=== PATIENT | male | born 1950 | race Caucasian/White ===

== ENCOUNTER → 2020-08-05 13:01 | Outpatient (BNVA) | payer MEDICARE, SELFPAY | PROVIDERS: PCP Internal Medicine; Referring Provider Internal Medicine; Visit Provider Family Medicine Adult Medicine | DX: M47.816 Spondylosis without myelopathy or radiculopathy, lumbar region (principal); M17.0 Bilateral primary osteoarthritis of knee; K50.90 Crohn's disease, unspecified, without complications; Z79.891 Long term (current) use of opiate analgesic | CPT/HCPCS: 99214 ==

== ENCOUNTER 2020-08-08 09:38 | Day surgery (SDC) | payer MEDICARE, SELFPAY ==
--- NOTE | 2020-08-07 11:15 | HO.ANESPROP2 ---
Documented by User: Judy Odell 08/07/20 11:16 HPI - Anesthesia Eval Consult details Narrative: 70yo M for Colonoscopy [facility] Past Medical History Medical History (Updated 08/08/20 @ 10:35 by Nick Smith RN) Arthritis Asthma Back pain Crohn disease Depression HTN (hypertension) Lumbar spondylosis Sleep apnea Tendon tear Surgical History Surgical History H/O colonoscopy Social History Social History Smoking Status: Former smoker Smoking Quit Date: 25YEARS AGO Use of substances other than those prescribed or required for medical reasons: No Advance Directives: No Advance Directives Information Provided: Yes Recently lost weight without trying: No Meds Allergies Allergy/AdvReac Type Severity Reaction Status Date / Time hydrocortisone Allergy Severe SWELLING Verified 08/05/20 13:14 [HYDROCORTISONE] NSAIDS (Non-Steroidal Allergy Severe BLEEDING Verified 08/05/20 13:14 Anti-Inflamma [NSAIDS (NON-STEROIDAL ANTI-INFLAMMA] aspirin Allergy Unknown bleeding Verified 08/05/20 13:14 Home Medications Medication Instructions Recorded Confirmed Type chlorthalidone 25 mg tablet 25 mg PO DAILY 07/30/20 08/05/20 History tizanidine 4 mg capsule 4 mg PO Q8H PRN 07/30/20 08/05/20 History venlafaxine 75 mg tablet 75 mg PO BID 07/30/20 08/05/20 History Exam Exam Date and Time: August 07, 2020 1115 Pertinent Lab Results Pertinent Lab Results: Laboratory Tests 05/06/20 05/06/20 17:34 17:56 WBC 5.9 Hgb 14.6 Hct 44.6 Plt Count 279 Sodium 139 Potassium 3.6 Chloride 98 BUN 20 H Creatinine 0.98 Assessment and Plan Assessment Anesthesia Assessment: Chart Reviewed Documented by User: Marianna Pitts 08/08/20 10:59 [facility] Past Medical History Medical History (Updated 08/08/20 @ 10:35 by Nick Smith RN) Arthritis Asthma Back pain Crohn disease Depression HTN (hypertension) Lumbar spondylosis Sleep apnea Tendon tear Surgical History Surgical History H/O colonoscopy Social History Social History Smoking Status: Former smoker Smoking Quit Date: 25YEARS AGO Use of substances other than those prescribed or required for medical reasons: No Advance Directives: No Advance Directives Information Provided: Yes Recently lost weight without trying: No Meds Allergies Allergy/AdvReac Type Severity Reaction Status Date / Time hydrocortisone Allergy Severe SWELLING Verified 08/05/20 13:14 [HYDROCORTISONE] NSAIDS (Non-Steroidal Allergy Severe BLEEDING Verified 08/05/20 13:14 Anti-Inflamma [NSAIDS (NON-STEROIDAL ANTI-INFLAMMA] aspirin Allergy Unknown bleeding Verified 08/05/20 13:14 Home Medications Medication Instructions Recorded Confirmed Type chlorthalidone 25 mg tablet 25 mg PO DAILY 07/30/20 08/05/20 History tizanidine 4 mg capsule 4 mg PO Q8H PRN 07/30/20 08/05/20 History venlafaxine 75 mg tablet 75 mg PO BID 07/30/20 08/05/20 History Exam Height,Weight and Vital Signs: Vital Signs Temp Pulse Resp BP Pulse Ox 08/08/20 10:51 161/84 H 08/08/20 10:15 98.6 F 63 18 96 Airway Mallampati Class: III TM Dist: >3cm Neck ROM: Full Heart: RRR Lungs: CTAB Assessment and Plan Assessment Anesthesia Assessment: Anesthesia Plan Discussed and Chart Reviewed Final Anesthetic Review NPO: Yes ASA Class: III Final Preanesthetic Review: No Changes in Pt Med Stat, Meds/Allgs Chart Reviewed, Consent Obtained/Reviewed and Anes Risks/Benef Reviewed Patient Risk: Intermediate Procedure Risk: Low Anesthetic Plan Anesthetic Plan: MAC: Disposition: Standard PACU
[2020-08-08 10:15] VITALS: PULSE 63; RESP 18; TEMP 37; O2SAT 96
[2020-08-08 10:17] VITALS: BMI 33.4
[2020-08-08] MEDS: Lactated Ringers 1,000 ML 100 ML IVCONT (10:27)
[2020-08-08 10:51] VITALS: BP 161/84
--- NOTE | 2020-08-08 11:14 | PM.OP ---
Brief Operative Note Date of procedure: 08/08/20 Pre-op diagnosis: crohns Post-op diagnosis: other (colon polyp) Procedure: colonosocpy Surgeon: Rahat Fuentes Anesthesia: MAC Estimated blood loss (mL): 5 Pathology: other (colon bx's, colon polyp) Condition: stable Disposition: PACU
--- NOTE | 2020-08-08 11:16 | MHC.SHP ---
Pre-Procedural Eval Section A The patient is an INPATIENT: No Changes since office visit: No Cold of Flu in the past 2 weeks, No New Medical Problems, No Changes in Medication and No Patient answered all questions The History & Physical has been completed within 30 days and I have reviewed it.: Yes Section B Chief Complaint: CROHN'S Allergies: Allergies Allergy/AdvReac Type Severity Reaction Status Date / Time hydrocortisone Allergy Severe SWELLING Verified 08/05/20 13:14 [HYDROCORTISONE] NSAIDS (Non-Steroidal Allergy Severe BLEEDING Verified 08/05/20 13:14 Anti-Inflamma [NSAIDS (NON-STEROIDAL ANTI-INFLAMMA] aspirin Allergy Unknown bleeding Verified 08/05/20 13:14 Plan Patient has been examined and remains a candidate for the planned procedure
[2020-08-08 11:17] VITALS: BP 113/61; PULSE 57; RESP 12; TEMP 36.6; O2SAT 95
[2020-08-08 11:32] VITALS: BP 126/60; PULSE 60; RESP 16; TEMP 36.6
--- NOTE | 2020-08-08 11:44 | HO.POSTANES ---
Post Anesthesia Evaluation Post Anesthesia Evaluation Vital Signs: Vital Signs Temp Pulse Resp BP Pulse Ox 08/08/20 11:32 98 F 60 16 126/60 08/08/20 11:17 97.8 F 57 12 113/61 95 08/08/20 10:51 161/84 H 08/08/20 10:15 98.6 F 63 18 96 Anesthesia: Monitored Mental Status: Awake Pain Control: Satisfactory Nausea/Vomiting: None Anesthesia-Related Issues: No Anes. Related Issues
--- NOTE | 2020-08-08 12:05 | OP_ITS ---
SURGEON: Rahat Fuentes MD INDICATIONS: Crohn disease. PREOPERATIVE DIAGNOSIS: POSTOPERATIVE DIAGNOSIS: PROCEDURE PERFORMED: Colonoscopy to the terminal ileum with biopsy. ESTIMATED BLOOD LOSS: COMPLICATIONS: ANESTHESIA: ASSISTANTS: SPECIMENS: MEDICATIONS: Monitored anesthesia care. DESCRIPTION OF PROCEDURE: History and physical performed. The risks and benefits of the procedure were explained to the patient. Informed consent was obtained. The patient was placed in the left lateral decubitus position. A digital rectal exam was performed and was found to be normal. The Olympus pediatric video colonoscope was introduced into the rectum and advanced to the cecum without difficulty. The cecum was identified by transillumination, palpation, and identification of ileocecal valve. Examination was performed and the scope was removed. He tolerated the procedure well and was taken to recovery area in stable condition. FINDINGS: The terminal ileum was normal. The visualized colonic mucosa was normal. The quality of the prep was good. Biopsies were obtained from the terminal ileum and from throughout the colon. A 6 mm polyp was removed with a snare at 50 cm. No other polyps were identified. Retroflexed examination was normal. IMPRESSION: Colon polyp. RECOMMENDATION: Follow up the biopsy results. MD FARHEEN Garcia/PEDRO / [id number]
== END 2020-08-08 11:53 | disposition home or self-care (01) ==
PROVIDERS: PCP Internal Medicine; Visit Provider Internal Medicine Gastroenterology
PROC: 0DJD8ZZ Inspection of Lower Intestinal Tract, Via Natural or Artificial Opening Endoscopic (ICD-10-PCS; CPT 45378; principal; 2020-08-08 11:00)
DX: K50.00 Crohn's disease of small intestine without complications (principal); Z86.010 Personal history of colon polyps; Z80.0 Family history of malignant neoplasm of digestive organs; D12.5 Benign neoplasm of sigmoid colon; K21.9 Gastro-esophageal reflux disease without esophagitis; J44.9 Chronic obstructive pulmonary disease, unspecified; I10 Essential (primary) hypertension; J45.909 Unspecified asthma, uncomplicated; Z79.899 Other long term (current) drug therapy; Z88.8 Allergy status to other drugs, medicaments and biological substances; Z87.891 Personal history of nicotine dependence
CPT/HCPCS: 45385; 45380; 88305

== ENCOUNTER → 2020-09-09 15:27 | Outpatient (BNVA) | payer MEDICARE, SELFPAY | PROVIDERS: PCP Internal Medicine; Referring Provider Internal Medicine; Visit Provider Family Medicine Adult Medicine | DX: M47.816 Spondylosis without myelopathy or radiculopathy, lumbar region (principal); Z79.891 Long term (current) use of opiate analgesic | CPT/HCPCS: 99212 ==

== ENCOUNTER → 2020-10-07 14:48 | Outpatient (BNVA) | payer MEDICARE, SELFPAY | PROVIDERS: PCP Internal Medicine; Visit Provider Family Medicine Adult Medicine | DX: M54.16 Radiculopathy, lumbar region (principal) | CPT/HCPCS: 99212 ==

== ENCOUNTER → 2020-10-14 13:19 | Outpatient (BNVA) | payer MEDICARE, SELFPAY | PROVIDERS: PCP Internal Medicine; Visit Provider Internal Medicine | DX: J45.909 Unspecified asthma, uncomplicated (principal); J44.9 Chronic obstructive pulmonary disease, unspecified; G47.33 Obstructive sleep apnea (adult) (pediatric); Z87.891 Personal history of nicotine dependence; Z99.89 Dependence on other enabling machines and devices; Z79.52 Long term (current) use of systemic steroids; Z79.899 Other long term (current) drug therapy | CPT/HCPCS: 99212 ==

== ENCOUNTER → 2020-11-06 15:28 | Outpatient (BNVA) | payer MEDICARE, SELFPAY | PROVIDERS: PCP Internal Medicine; Referring Provider Internal Medicine; Visit Provider Family Medicine Adult Medicine | DX: M47.816 Spondylosis without myelopathy or radiculopathy, lumbar region (principal); M54.16 Radiculopathy, lumbar region | CPT/HCPCS: 99212 ==

== ENCOUNTER → 2020-12-04 13:53 | Outpatient (BNVA) | payer MEDICARE, SELFPAY | PROVIDERS: PCP Internal Medicine; Visit Provider Family Medicine Adult Medicine | DX: M47.816 Spondylosis without myelopathy or radiculopathy, lumbar region (principal); M54.16 Radiculopathy, lumbar region; Z79.891 Long term (current) use of opiate analgesic | CPT/HCPCS: 99211 ==

== ENCOUNTER → 2020-12-31 15:16 | Outpatient (BNVA) | payer MEDICARE, SELFPAY | PROVIDERS: PCP Internal Medicine; Visit Provider Nurse Practitioner Family | DX: M47.816 Spondylosis without myelopathy or radiculopathy, lumbar region (principal); M54.16 Radiculopathy, lumbar region | CPT/HCPCS: 99212 ==

== ENCOUNTER → 2021-01-29 15:32 | Outpatient (BNVA) | payer MEDICARE, SELFPAY | PROVIDERS: PCP Internal Medicine; Visit Provider Family Medicine Adult Medicine | DX: M47.816 Spondylosis without myelopathy or radiculopathy, lumbar region (principal); M54.16 Radiculopathy, lumbar region | CPT/HCPCS: 99212 ==

== ENCOUNTER → 2021-02-05 12:34 | Outpatient (BNVA) | payer MEDICARE, SELFPAY | PROVIDERS: PCP Internal Medicine; Visit Provider Family Medicine Adult Medicine | DX: M47.816 Spondylosis without myelopathy or radiculopathy, lumbar region (principal); M54.16 Radiculopathy, lumbar region; M17.0 Bilateral primary osteoarthritis of knee | CPT/HCPCS: 99212; Q3014 ==

== ENCOUNTER → 2021-03-05 14:25 | Outpatient (BNVA) | payer MEDICARE, SELFPAY | PROVIDERS: PCP Internal Medicine; Visit Provider Family Medicine Adult Medicine | DX: M47.816 Spondylosis without myelopathy or radiculopathy, lumbar region (principal); M54.16 Radiculopathy, lumbar region; M17.0 Bilateral primary osteoarthritis of knee | CPT/HCPCS: 99212 ==

== ENCOUNTER → 2021-03-12 14:35 | Outpatient (BNVA) | payer MEDICARE, SELFPAY | PROVIDERS: PCP Internal Medicine; Visit Provider Family Medicine Adult Medicine | DX: M54.16 Radiculopathy, lumbar region (principal); M47.816 Spondylosis without myelopathy or radiculopathy, lumbar region; M17.0 Bilateral primary osteoarthritis of knee | CPT/HCPCS: Q3014 ==

== ENCOUNTER 2021-03-23 11:46 | Outpatient (REF) | payer MEDICARE, SELFPAY ==
--- NOTE | ~2021-03-23 | XR_ITS ---
EXAMINATION: BILATERAL KNEE X-RAY CLINICAL INFORMATION: Pain COMPARISON: Previous exam most recent February 2019 TECHNIQUE: Standing AP, lateral and sunrise view of both knees FINDINGS: Right: Bone alignment is normal. No fracture or dislocation is seen. There is mild medial femoral tibial joint space narrowing. There is no joint effusion. Left: Bone alignment is normal. No fracture or dislocation is seen. There is a. 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 The joint spaces are normal. There is a small joint effusion. XR/XR knee RT 2V IMPRESSION: Right knee: Mild medial femoral tibial joint space narrowing. Left knee: Small joint effusion. 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
--- NOTE | ~2021-03-23 | XR_ITS ---
EXAMINATION: BILATERAL KNEE X-RAY CLINICAL INFORMATION: Pain COMPARISON: Previous exam most recent February 2019 TECHNIQUE: Standing AP, lateral and sunrise view of both knees FINDINGS: Right: Bone alignment is normal. No fracture or dislocation is seen. There is mild medial femoral tibial joint space narrowing. There is no joint effusion. Left: Bone alignment is normal. No fracture or dislocation is seen. There is a. 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 The joint spaces are normal. There is a small joint effusion. XR/XR knee standing BI IMPRESSION: Right knee: Mild medial femoral tibial joint space narrowing. Left knee: Small joint effusion. 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
--- NOTE | ~2021-03-23 | XR_ITS ---
EXAMINATION: BILATERAL KNEE X-RAY CLINICAL INFORMATION: Pain COMPARISON: Previous exam most recent February 2019 TECHNIQUE: Standing AP, lateral and sunrise view of both knees FINDINGS: Right: Bone alignment is normal. No fracture or dislocation is seen. There is mild medial femoral tibial joint space narrowing. There is no joint effusion. Left: Bone alignment is normal. No fracture or dislocation is seen. There is a. 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 The joint spaces are normal. There is a small joint effusion. XR/XR knee LT 2V IMPRESSION: Right knee: Mild medial femoral tibial joint space narrowing. Left knee: Small joint effusion. 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
== END 2021-03-23 11:47 | disposition home or self-care (01) ==
LOC: HO.HOSX 11:46
PROVIDERS: Visit Provider Orthopaedic Surgery
DX: M17.0 Bilateral primary osteoarthritis of knee (principal)
CPT/HCPCS: 20610; 73560; 73565; 99202; J1100

== ENCOUNTER → 2021-04-10 13:02 | Outpatient (BNVA) | payer MEDICARE, SELFPAY | PROVIDERS: PCP Internal Medicine; Visit Provider Nurse Practitioner Family | DX: M47.816 Spondylosis without myelopathy or radiculopathy, lumbar region (principal); M53.3 Sacrococcygeal disorders, not elsewhere classified; Z79.899 Other long term (current) drug therapy | CPT/HCPCS: 99212 ==

== ENCOUNTER → 2021-05-07 13:20 | Outpatient (BNVA) | payer MEDICARE, SELFPAY | PROVIDERS: PCP Internal Medicine; Visit Provider Family Medicine Adult Medicine | DX: M54.16 Radiculopathy, lumbar region (principal); M47.816 Spondylosis without myelopathy or radiculopathy, lumbar region; M17.0 Bilateral primary osteoarthritis of knee; M79.672 Pain in left foot; G47.33 Obstructive sleep apnea (adult) (pediatric); Z99.89 Dependence on other enabling machines and devices; Z88.8 Allergy status to other drugs, medicaments and biological substances; Z79.899 Other long term (current) drug therapy | CPT/HCPCS: 99212 ==

== ENCOUNTER 2021-05-08 04:27 | Emergency (ER) | payer MEDICARE, SELFPAY ==
[2021-05-08] VITALS (12 sets, daily range): BP systolic 95–129; BP diastolic 51–75; PULSE 65–90; RESP 10–23; TEMP 36.6–36.9; O2SAT 91–96; BMI 34.2
--- NOTE | ~2021-05-08 | CT_ITS ---
EXAMINATION: CT HEAD WITHOUT CONTRAST CLINICAL INFORMATION: Dizziness. COMPARISON: 12/24/2018 TECHNIQUE: Contiguous axial imaging was performed from the skull base to vertex without intravenous contrast. This CT examination was performed using dose optimization techniques as appropriate, variously including the following: * Automated exposure control * Adjustment of mA and/or kV according to patient size (this includes techniques or standardized protocols for targeted exams where dose is matched to indication/reason for exam; i.e. extremities or head) Use of iterative reconstruction technique DLP: 913 mGy-cm. FINDINGS: There is no evidence of acute intracranial hemorrhage or territorial infarction. No abnormal mass effect or midline shift is seen. Hagan to white matter differentiation is well preserved. No extra-axial fluid collections are identified. No hydrocephalus. Proportional prominence of the ventricles and sulcal spaces is consistent with mild volume loss. Patchy periventricular and deep white matter hypoattenuation is consistent with mild small vessel ischemic changes. The osseous structures and soft tissues are normal. Mild opacification of the bilateral ethmoid air cells. The mastoid air cells and visualized portions of the paranasal sinuses are otherwise well aerated. CT/CT head/brain wo con IMPRESSION: No acute intracranial pathology. Mild volume loss and small vessel ischemic change.
--- NOTE | 2021-05-08 04:33 | ECG_ITS ---
Test Reason : DIZZINESS Blood Pressure : / mmHG Vent. Rate : 084 BPM Atrial Rate : 084 BPM P-R Int : 164 ms QRS Dur : 094 ms QT Int : 410 ms P-R-T Axes : 029 -04 031 degrees QTc Int : 484 ms Normal sinus rhythm Cannot rule out Inferior infarct (cited on or before 25-NOV-2019) Abnormal ECG When compared with ECG of 06-MAY-2020 17:16, No significant change was found Referred By: Myra De La Cruz Electronically Signed By:CONCHITA HICKS
--- NOTE | 2021-05-08 04:34 | ED.NAVMDI ---
HPI - Nausea/Vomiting/Diarrhea General Chief complaint: General Medical Stated complaint: sob/nausea Time Seen by Provider: 05/08/21 04:32 Source: patient and EMS Mode of arrival: EMS Limitations: no limitations History of Present Illness HPI Narrative: 70 yo male with hx of VIDA< COPD, chronic pain syndrome on morphine took his usual dose today then couldn't sleep so he attempted to take one of his 's herbal sleeping supplements that contains chamomile, vallerian root, melatonin, coconut oil, he took two instead of one and the side effects include nausea and dizziness at higher doses patient developed these soon after ingestion. At this time he has never taken this suppelment before, his actually stopped taking it due to these side effects. MD elicited complaint: nausea and other (dizziness) Onset (ago): hour(s) Associated nausea: Yes Associated abdominal pain: No Location of pain: none Severity: mild Exacerbating factors: none Relieving factors: none Context: other (started after a sleep supplement) Associated symptoms: fever/chills, malaise, nausea/vomiting and weakness Related Data Home Medications Medication Instructions Recorded Confirmed azathioprine 50 mg tablet 50 mg PO DAILY 08/26/20 05/07/21 fluticasone propionate 110 1 puff INHALATION BID 08/26/20 05/07/21 mcg/actuation HFA aerosol inhaler Previous Rx's Medication Instructions Recorded pravastatin 20 mg tablet 20 mg PO DAILY #90 tab 11/25/20 salmeterol 50 mcg/dose blister 1 inh INHALATION BID 30 Days #60 ea 11/25/20 powder for inhalation tamsulosin 0.4 mg capsule 0.4 mg PO BEDTIME 90 Days #90 cap 11/25/20 tizanidine 4 mg capsule 4 mg PO BEDTIME PRN 30 Days #30 cap 11/25/20 metoprolol succinate 50 mg 50 mg PO DAILY #90 tab 11/30/20 tablet,extended release 24 hr pantoprazole 20 mg tablet,delayed 20 mg PO DAILY #90 tab 11/30/20 release chlorthalidone 25 mg tablet 25 mg PO QAM #90 tab 01/30/21 venlafaxine 75 mg tablet 75 mg PO .COMPLEX #270 tab 03/05/21 oxycodone 30 mg tablet,crush 30 mg PO BID 30 Days #60 tab 05/07/21 resistant,extended release 12 hr Allergies Allergy/AdvReac Type Severity Reaction Status Date / Time hydrocortisone Allergy Severe SWELLING Verified 05/08/21 04:37 [HYDROCORTISONE] NSAIDS (Non-Steroidal Allergy Severe BLEEDING Verified 05/08/21 04:37 Anti-Inflamma [NSAIDS (NON-STEROIDAL ANTI-INFLAMMA] aspirin Allergy Unknown bleeding Verified 05/08/21 04:37 Review of Systems Review of Systems: Constitutional : No Weight loss, No Fever, No Chills, No Fatigue, pos Malaise ENT/Mouth : No sore throat, No Rhinorrhea Eyes: No Eye Pain, No Swelling, No Redness Cardiovascular : No Chest Pain, No SOB, No Dyspnea on Exertion, No Orthopnea, No Edema, No Palpitations Respiratory : No Cough, No Sputum, No Wheezing Gastrointestinal : pos Nausea, No Vomiting, No Diarrhea, No Constipation, No abdominal Pain, No Hematochezia, No Melena Genitourinary : No Dysuria, No Urinary Frequency, No Hematuria, Musculoskeletal : No joint pain, No Myalgias, No Joint Swelling Skin : No Skin Lesions, No rash Neuro : pos Weakness, No Numbness, pos Dizziness, No Headache Psych : No Anxiety/Panic, No Depression Heme/Lymph: No Bruising, No Bleeding,No Lymphadenopathy Endocrine : No Polyuria, No Polydipsia All other systems reviewed and are negative Gastrointestinal: Gastrointestinal: Reports nausea PMFSH Past Medical History Attestation statement: The following information was validated with the patient. Medical History Allergic rhinitis Allergic rhinitis Arthritis Arthritis of both knees Asthma Asthma Back pain Benign prostatic hyperplasia Chronic pain syndrome COPD (chronic obstructive pulmonary disease) Crohn disease Depression HTN (hypertension) Lumbar radiculopathy Lumbar spondylosis VIDA on CPAP Sleep apnea Tendon tear Surgical History H/O colonoscopy Family History Family History Father No problems noted. Mother No problems noted. Social History Social History (Updated 05/08/21 @ 04:35 by Myra De La Cruz DO) Alcohol intake: never Patient Tobacco Use Status: Former Tobacco user Advance Directives: No Advance Directives Information Provided: No Current occupational status: retired Physical Exam Vital Signs: Vital Signs: Last Vital Signs Temp 98 F 05/08/21 04:38 Pulse 77 05/08/21 06:06 Resp 14 05/08/21 06:06 BP 111/57 L 05/08/21 06:06 Pulse Ox 95 05/08/21 06:06 Body Mass Index 34.2 Appearance: Alert. Oriented X3. Mild acute distress. Anxious Eyes: Pupils equal, round and reactive to light. ENT: Pharynx normal. Neck: Normal inspection. Neck supple. CVS: Normal heart rate and rhythm. Pulses normal. Respiratory: No respiratory distress. Breath sounds normal. Abdomen: Soft and non-tender. Skin: Skin warm and dry. pale skin color. Normal skin turgor. Extremities: No lower extremity edema. No calf ttp Neuro: Oriented X 3. No motor deficit. No sensory deficit. No nystagmus NIH Stroke Scale Internal: Initial- Upon Arrival Level of Consciousness: Alert Level of Consciousness Questions: Answers both questions correctly Level of Consciousness Commands: Performs both tasks correctly Best Gaze: Normal Visual: No visual loss Facial Palsy: Normal Motor Arm (Right): No drift Motor Arm (Left): No drift Motor Leg (Right): No drift Motor Leg (Left): No drift Limb Ataxia: Absent Sensory: Normal Best Language: No aphasia Dysarthia: Normal Extinction and Inattention: No abnormality Score: 0 Course Course Course Narrative: signed out to Dr. Juan pending workup and further clearance NIH is 0 he is diffusely weak cannot stand without assistance due to dizziness I doubt this is a posterior stroke all symptoms related to ingestion no focal findings at this time MDM - Nausea/Vomiting/Diarrhea MDM Narrative Medical decision making narrative: 70 yo male with hx of VIDA< COPD, chronic pain syndrome on morphine took his usual dose today then couldn't sleep so he attempted to take one of his 's herbal sleeping supplements that contains chamomile, vallerian root, melatonin, coconut oil, he took two instead of one and the side effects include nausea and dizziness at higher doses patient developed these soon after ingestion. At this time he has never taken this supplment before, his actually stopped taking it due to these side effects at this time suspect issues related to supplement will need labs, EKG, zofran, troponin, observation VS stable. Lab Data Result diagrams: 05/08/21 05:01 05/08/21 05:00 Labs: Lab Results 05/08/21 05/08/21 05/08/21 Range/Units 05:00 05:01 05:01 WBC 6.0 (4.8-10.8) X10*3/uL RBC 4.31 L (4.60-5.80) X10*6/uL Hgb 11.5 L (14.0-18.0) g/dl Hct 35.7 L (42-52) % MCV 82.8 (80-98) fL MCH 26.7 L (27.0-33.0) pg MCHC 32.2 (31.0-36.0) g/dl RDW 13.8 (11.0-16.0) % Plt Count 313 (160-400) X10*3/uL MPV 11.0 (9.4-12.4) fL Immature Gran % (Auto) 0.3 (0.0-0.4) % Neut % (Auto) 51.6 (45-73) % Lymph % (Auto) 35.9 (20-40) % [place] % (Auto) 9.4 (2-11) % Eos % (Auto) 2.3 (0-4) % Baso % (Auto) 0.5 (0-2) % Lymph # (Auto) 2.2 (1.2-4.9) X10*3/uL [place] # (Auto) 0.6 (0.1-1.2) X10*3/uL Eos # (Auto) 0.1 (0.0-0.4) X10*3/uL Baso # (Auto) 0.0 (0.0-0.2) X10*3/uL Abs Immat Gran (auto) 0.02 (0.00-0.03) X10*3/uL Absolute Neuts (auto) 3.1 (2.0-8.3) X10*3/uL Absolute Nucleated RBC 0.000 (0.0-0.012) X10*3/uL Nucleated RBC % (auto) 0.0 (0.0-0.2) /100WBC Sodium 140 (135-145) mmol/L Potassium 3.7 (3.3-5.1) mmol/L Chloride 104 (96-108) mmol/L Carbon Dioxide 26 (22-29) mmol/L Anion Gap 14 (12-20) BUN 27 H (9-16) mg/dL Creatinine 1.01 (0.5-1.4) mg/dL Estim Creat Clear Calc 78.8 Estimated GFR > 60 Random Glucose 231 H (60-115) mg/dL Calcium 8.9 (8.4-10.2) mg/dL Magnesium 1.8 (1.6-2.6) mg/dL Total Bilirubin 0.3 (0.0-1.0) mg/dL Direct Bilirubin < 0.2 (0.0-0.5) mg/dL AST 17 (5-37) U/L ALT 13 (0-40) U/L Alkaline Phosphatase 104 (39-117) U/L Troponin I High Sens 4.2 (<3.5-35.0) ng/L Total Protein 6.4 L (6.5-8.0) g/dL Albumin 3.7 (3.5-5.0) g/dL Lipase 18 (8-78) U/L Ethyl Alcohol mg/dL 05/08/21 Range/Units 05:01 WBC (4.8-10.8) X10*3/uL RBC (4.60-5.80) X10*6/uL Hgb (14.0-18.0) g/dl Hct (42-52) % MCV (80-98) fL MCH (27.0-33.0) pg MCHC (31.0-36.0) g/dl RDW (11.0-16.0) % Plt Count (160-400) X10*3/uL MPV (9.4-12.4) fL Immature Gran % (Auto) (0.0-0.4) % Neut % (Auto) (45-73) % Lymph % (Auto) (20-40) % [place] % (Auto) (2-11) % Eos % (Auto) (0-4) % Baso % (Auto) (0-2) % Lymph # (Auto) (1.2-4.9) X10*3/uL [place] # (Auto) (0.1-1.2) X10*3/uL Eos # (Auto) (0.0-0.4) X10*3/uL Baso # (Auto) (0.0-0.2) X10*3/uL Abs Immat Gran (auto) (0.00-0.03) X10*3/uL Absolute Neuts (auto) (2.0-8.3) X10*3/uL Absolute Nucleated RBC (0.0-0.012) X10*3/uL Nucleated RBC % (auto) (0.0-0.2) /100WBC Sodium (135-145) mmol/L Potassium (3.3-5.1) mmol/L Chloride (96-108) mmol/L Carbon Dioxide (22-29) mmol/L Anion Gap (12-20) BUN (9-16) mg/dL Creatinine (0.5-1.4) mg/dL Estim Creat Clear Calc Estimated GFR Random Glucose (60-115) mg/dL Calcium (8.4-10.2) mg/dL Magnesium (1.6-2.6) mg/dL Total Bilirubin (0.0-1.0) mg/dL Direct Bilirubin (0.0-0.5) mg/dL AST (5-37) U/L ALT (0-40) U/L Alkaline Phosphatase (39-117) U/L Troponin I High Sens (<3.5-35.0) ng/L Total Protein (6.5-8.0) g/dL Albumin (3.5-5.0) g/dL Lipase (8-78) U/L Ethyl Alcohol < 10 mg/dL ECG Data Attestation: I personally reviewed and interpreted this ECG as follows: ECG interpretation date: 05/08/21 ECG interpretation time: 04:43 Interpretation: Rate: 84 Rhythm: NSR [place]: normal Normal P waves. Normal RUTH. Normal QRS complex. ST T wave : nonspecific, no ANDIE qTC: normal prior studies: no acute ischemia The study has been interpreted contemporaneously by me. . Discharge Plan Discharge Clinical Impression: Dizziness Vomiting Qualifiers: Vomiting type: unspecified Vomiting Intractability: non-intractable Nausea presence: with nausea Qualified Code(s): R11.2 - Nausea with vomiting, unspecified Prescriptions: No Action pantoprazole 20 mg tablet,delayed release (DR/EC) 20 mg PO DAILY Qty: 90 RF: 1 metoprolol succinate 50 mg tablet extended release 24 hr 50 mg PO DAILY Qty: 90 RF: 0 chlorthalidone 25 mg tablet 25 mg PO QAM Qty: 90 RF: 1 venlafaxine 75 mg tablet 75 mg PO .COMPLEX Qty: 270 RF: 1 azathioprine 50 mg tablet 50 mg PO DAILY RF: 0 Flovent HFA 110 mcg/actuation HFA aerosol inhaler 1 puff inhalation BID RF: 0 pravastatin 20 mg tablet 20 mg PO DAILY Qty: 90 RF: 1 tamsulosin [Flomax] 0.4 mg capsule 0.4 mg PO BEDTIME 90 Days Qty: 90 RF: 1 Serevent Diskus 50 mcg/dose blister with device 1 inh inhalation BID 30 Days Qty: 60 RF: 3 tizanidine 4 mg capsule 4 mg PO BEDTIME PRN (Reason: muscle spasticity) 30 Days Qty: 30 RF: 0 oxycodone [OxyContin] 30 mg tablet,oral only,ext.rel.12 hr 30 mg PO BID 30 Days Qty: 60 RF: 0
[2021-05-08 05:07] LABS: MANUAL DIFF FLAG NO
[2021-05-08 05:08] LABS: Basophils Percent Auto 0.5 % (0-2); Eosinophils Absolute Auto 0.1 X10*3/uL (0.0-0.4); Eosinophils Percent Auto 2.3 % (0-4); Hematocrit 35.7 % (42-52); Hemoglobin 11.5 g/dl (14.0-18.0); Imm Gran Abs Auto 0.02 X10*3/uL (0.00-0.03); Imm Gran Pct Auto 0.3 % (0.0-0.4); Lymphocytes Absolute Auto 2.2 X10*3/uL (1.2-4.9); Lymphocytes Percent Auto 35.9 % (20-40); Mean Corpuscular HGB Conc 32.2 g/dl (31.0-36.0); Mean Corpuscular Hemoglobin 26.7 pg (27.0-33.0); Mean Corpuscular Volume 82.8 fL (80-98); Monocytes Absolute Auto 0.6 X10*3/uL (0.1-1.2); Monocytes Percent Auto 9.4 % (2-11); Neutrophils Absolute Auto 3.1 X10*3/uL (2.0-8.3); Neutrophils Percent Auto 51.6 % (45-73); Platelet Count 313 X10*3/uL (160-400); Red Blood Count 4.31 X10*6/uL (4.60-5.80); Red Cell Distribution Width 13.8 % (11.0-16.0)
[2021-05-08 05:31] LABS: Ethanol < 10 mg/dL
[2021-05-08 05:33] LABS: Alanine Aminotransferase 13 U/L (0-40); Albumin Level 3.7 g/dL (3.5-5.0); Alkaline Phosphatase 104 U/L (39-117); Anion Gap 14 (12-20); Aspartate Amino Transferase 17 U/L (5-37); Bilirubin Direct < 0.2 mg/dL (0.0-0.5); Bilirubin Total 0.3 mg/dL (0.0-1.0); Blood Urea Nitrogen 27 mg/dL (9-16); Calcium 8.9 mg/dL (8.4-10.2); Carbon Dioxide 26 mmol/L (22-29); Chloride 104 mmol/L (96-108); Creatinine Clr Calc Pharmacy 78.8; Estimated Glomerular Filt Rate > 60; Glucose Random 231 mg/dL (60-115); Lipase 18 U/L (8-78); Magnesium 1.8 mg/dL (1.6-2.6); Potassium 3.7 mmol/L (3.3-5.1); Sodium 140 mmol/L (135-145); Total Protein 6.4 g/dL (6.5-8.0)
[2021-05-08 05:39] LABS: Troponin-I High Sensitivity 4.2 ng/L (<3.5-35.0)
[2021-05-08] MEDS: Magnesium Hydrox/Alum Hydrox 30 ML ORAL.SUSP 15 ML PO (05:40)
[2021-05-08] MEDS: 0.9 % Sodium Chloride 500 ML IV ×2 (05:40→06:08)
[2021-05-08] MEDS: ondansetron HCL 4 MG/2 ML VIAL IVPUSH (05:40)
[2021-05-08] MEDS: Lidocaine HCl Viscous 2 % 15 ML SOLUTION MUCOUS MEM (05:40)
--- NOTE | 2021-05-08 06:17 | PC.NURSE ---
PT CAME IN AFTER TAKING 2 HERBAL SUPPLEMENTS AND FEELING DIZZINESS, NAUSEA AND LIGHTHEADED ABOUT 1-2 HOURS LATER. PT HAS EYES CLOSED, CAN'T KEEP THEM OPEN ORE THAN A FEW SECONDS. GIOVANNI, NO NYSTAGMUS. PT ABLE TO RAISE BOTH ARMS OFF BED, EQUAL HAND GRASPS, LEFT SLIGHTLY WEAKER. GOOD STRONG PLANTAR FLEXION. PT CAOX3, SPEECH IS SLOW BUT CLEAR. PT INITIALLY COMPLAINING OF UPPER BACK SPASMS, CRIES OUT AND STIFFENS ARMS WHILE IN PAIN, LASTING 3-4 SECONDS AT A TIME. PT DENIES HEADACHE OR UNILATERAL WEAKNESS.
--- NOTE | 2021-05-08 08:22 | PC.NURSE ---
pt resting quietly in bed. he reports feeling dizzy. he is A&Ox3. reports some pain in his L shoulder and general body pain a 6/10. vitals are stable.
[2021-05-08] MEDS: diazePAM 2 MG TABLET PO (10:11)
[2021-05-08] MEDS: Meclizine HCl 25 MG TABLET 50 MG PO (10:11)
[2021-05-08] MEDS: 0.9 % Sodium Chloride 1,000 ML 999 ML IVCONT (10:13)
--- NOTE | 2021-05-08 14:05 | PC.NURSE ---
this RN changed pt to room air. per pt he periodically wears O2 at home on 2L. at this time his SaO2 was 93% on room air. pt is waking up more and becoming more coherent. he continues to report some dizziness but does report that it is better.
[2021-05-08 14:32] LABS: Glucose Urine UA NEG (NEG); Leukocyte Esterase Urine NEG (NEG); Nitrite Urine NEG (NEG); Specific Gravity - Urine >= 1.030 (1.005-1.025); Urine Blood NEG (NEG); Urine Ketones NEG (NEG); Urine Protein NEG (NEG-TRACE)
[2021-05-08 14:33] LABS: Appearance Urine CLEAR; Color Urine YELLOW
--- NOTE | 2021-05-08 14:40 | PC.NURSE ---
patient ambulated in [place] with cane, gait steady, and minimal assist from rn and tech. patient states he is feeling improved. informed rn earlier that she is not able to pick him up for discharged. patient requesting to take bus but rn does not feel as though that is safe plan for transport. states he does not have money to take cab. attempted to call [facility] but no answer. called to and no answer from her farrah navarrete. will continue to find safe dc transport option.
[2021-05-08 15:00] LABS: Amphetamine Screen Urine Not Detected (Not Detect); Barbiturates, Urine Not Detected (Not Detect); Benzodiazepines Screen Urine Not Detected (Not Detect); Cannabinoid Screen Urine POSITIVE (Not Detect); Cocaine Screen Urine Not Detected (Not Detect); Opiate Screen Urine POSITIVE (Not Detect); Phencyclidine Screen Urine Not Detected (Not Detect)
== END 2021-05-08 14:56 | disposition home or self-care (01) ==
PROVIDERS: Emergency Medicine; Emergency Provider Emergency Medicine
DX: R42 Dizziness and giddiness (principal); R11.2 Nausea with vomiting, unspecified; I10 Essential (primary) hypertension; J44.9 Chronic obstructive pulmonary disease, unspecified; G89.4 Chronic pain syndrome; Z79.891 Long term (current) use of opiate analgesic; Z79.899 Other long term (current) drug therapy
CPT/HCPCS: 36415; 70450; 80048; 80076; 80307; 81003; 82077; 83690; 83735; 84484; 85025; 93005; 96361; 96374; 99285; J2405

== ENCOUNTER → 2021-05-19 15:38 | Outpatient (BNVA) | payer MEDICARE, SELFPAY | PROVIDERS: Visit Provider Family Medicine Adult Medicine | DX: M17.0 Bilateral primary osteoarthritis of knee (principal); M54.16 Radiculopathy, lumbar region; Z79.899 Other long term (current) drug therapy | CPT/HCPCS: 99212 ==

== ENCOUNTER → 2021-06-11 15:22 | Outpatient (BNVA) | payer MEDICARE, SELFPAY | PROVIDERS: Visit Provider Family Medicine Adult Medicine | DX: M17.0 Bilateral primary osteoarthritis of knee (principal); M54.16 Radiculopathy, lumbar region; M47.816 Spondylosis without myelopathy or radiculopathy, lumbar region | CPT/HCPCS: 99212 ==

== ENCOUNTER → 2021-07-01 14:26 | Outpatient (BNVA) | payer MEDICARE, SELFPAY | PROVIDERS: PCP Internal Medicine; Visit Provider Anesthesiology | DX: M17.0 Bilateral primary osteoarthritis of knee (principal); G89.4 Chronic pain syndrome; Z79.899 Other long term (current) drug therapy | CPT/HCPCS: 99212 ==

== ENCOUNTER → 2021-07-09 15:21 | Outpatient (BNVA) | payer MEDICARE, SELFPAY | PROVIDERS: PCP Internal Medicine; Visit Provider Family Medicine Adult Medicine | DX: M54.16 Radiculopathy, lumbar region (principal); M47.816 Spondylosis without myelopathy or radiculopathy, lumbar region; M53.3 Sacrococcygeal disorders, not elsewhere classified; M17.0 Bilateral primary osteoarthritis of knee | CPT/HCPCS: 99212 ==

== ENCOUNTER 2021-07-10 17:30 | Outpatient (REF) | payer MEDICARE, SELFPAY ==
--- NOTE | ~2021-07-10 | MR_ITS ---
EXAMINATION: MR LUMBAR SPINE WITHOUT CONTRAST CLINICAL INFORMATION: Lumbar radiculopathy. COMPARISON: Lumbar spine radiographs from 02/19/2019. Lumbar spine MRI from 07/09/2010. TECHNIQUE: MRI of the lumbar spine was obtained using routine sequences without contrast. FINDINGS: Mild degenerative retrolisthesis of L5 on S1. Otherwise, normal anatomic alignment. Chronic anterior wedge deformities of the L1 and L2 vertebral bodies with 15% loss of anterior body heights (similar to 2010). Chronic Schmorl's nodes in the superior endplates of L1 and L2. Mild degenerative disc disease from T12-L5 with partial loss of disc heights and desiccation. Associated mixed Modic type discogenic end plate changes including minimal Modic type I discogenic edema at T12-L1 and L3-L4. No additional suspicious marrow edema. The remaining vertebral body heights are well-maintained. The conus medullaris terminates at the level of L1. The distal spinal cord is normal in appearance. Moderate subcutaneous edema within the soft tissues of the back from L1-S1. No additional significant abnormalities of the paraspinal musculature. There are two 2.8 cm T2 hyperintense cysts in the upper pole the left kidney. Otherwise, limited evaluation of the intra-abdominal structures without significant abnormalities. The abdominal aorta is of normal contour and caliber. AXIAL SPINAL LEVELS: L1-L2: Shallow diffuse disc bulge. There is moderate bilateral facet joint arthropathy. There is mild bilateral neural foraminal stenosis. There is no spinal canal stenosis. L2-L3: Shallow diffuse disc bulge with superimposed left foraminal disc protrusion. There is moderate right and mild left facet joint arthropathy. There is moderate bilateral neural foraminal stenosis. There is no spinal canal stenosis. L3-L4: Mild diffuse disc bulge with superimposed small left foraminal/extraforaminal disc protrusion. There is moderate bilateral facet joint arthropathy. There is moderate bilateral neural foraminal stenosis. There is narrowing of the subarticular zones with no overt spinal canal stenosis centrally. L4-L5: Mild diffuse disc bulge. There is moderate right and mild left facet joint arthropathy. There is moderate to severe bilateral neural foraminal stenosis. There is no spinal canal stenosis. L5-S1: Mild diffuse disc bulge. There is mild to moderate bilateral facet joint arthropathy. There is moderate left and mild right neural foraminal stenosis. There is no spinal canal stenosis. MR/MR lumbar spine wo con IMPRESSION: Moderate multilevel degenerative spondyloarthropathy of the lumbar spine as described in detail above. Most notably, there are moderate to severe neural foraminal stenoses from L2-S1. No overt spinal canal stenosis centrally. Overall, degenerative changes are mildly progressed compared to exam from 2010.
== END 2021-07-10 17:31 | disposition home or self-care (01) ==
LOC: HO.MRI 17:30
PROVIDERS: PCP Internal Medicine; Visit Provider Anesthesiology
DX: M54.16 Radiculopathy, lumbar region (principal)
CPT/HCPCS: 72148

== ENCOUNTER → 2021-08-06 13:56 | Outpatient (BNVA) | payer MEDICARE, SELFPAY | PROVIDERS: Visit Provider Family Medicine Adult Medicine | DX: Z51.81 Encounter for therapeutic drug level monitoring (principal); M54.16 Radiculopathy, lumbar region; M47.816 Spondylosis without myelopathy or radiculopathy, lumbar region; M17.0 Bilateral primary osteoarthritis of knee | CPT/HCPCS: 99212 ==

== ENCOUNTER → 2021-08-13 13:35 | Outpatient (BNVA) | payer MEDICARE, SELFPAY | PROVIDERS: PCP Internal Medicine; Visit Provider Internal Medicine | DX: J44.1 Chronic obstructive pulmonary disease with (acute) exacerbation (principal); G47.33 Obstructive sleep apnea (adult) (pediatric); J30.9 Allergic rhinitis, unspecified; Z87.891 Personal history of nicotine dependence; Z88.6 Allergy status to analgesic agent; Z88.8 Allergy status to other drugs, medicaments and biological substances; Z99.89 Dependence on other enabling machines and devices; Z79.52 Long term (current) use of systemic steroids; Z79.899 Other long term (current) drug therapy | CPT/HCPCS: 99212 ==

== ENCOUNTER → 2021-09-03 13:47 | Outpatient (BNVA) | payer MEDICARE, SELFPAY | PROVIDERS: Visit Provider Family Medicine Adult Medicine | DX: M54.16 Radiculopathy, lumbar region (principal); M47.816 Spondylosis without myelopathy or radiculopathy, lumbar region; M17.0 Bilateral primary osteoarthritis of knee; E11.9 Type 2 diabetes mellitus without complications; Z79.899 Other long term (current) drug therapy; Z87.891 Personal history of nicotine dependence; Z79.891 Long term (current) use of opiate analgesic; Z79.4 Long term (current) use of insulin; Z79.52 Long term (current) use of systemic steroids | CPT/HCPCS: 99213; Q3014 ==

== ENCOUNTER → 2021-09-15 14:25 | Outpatient (BNVA) | payer MEDICARE, SELFPAY | PROVIDERS: PCP Internal Medicine; Visit Provider Internal Medicine | DX: G47.33 Obstructive sleep apnea (adult) (pediatric) (principal); J44.9 Chronic obstructive pulmonary disease, unspecified; J45.909 Unspecified asthma, uncomplicated; Z99.89 Dependence on other enabling machines and devices | CPT/HCPCS: 99212 ==

== ENCOUNTER → 2021-10-08 13:48 | Outpatient (BNVA) | payer MEDICARE, SELFPAY | PROVIDERS: PCP Internal Medicine; Visit Provider Family Medicine Adult Medicine | DX: Z51.81 Encounter for therapeutic drug level monitoring (principal); F11.20 Opioid dependence, uncomplicated | CPT/HCPCS: 99211 ==

== ENCOUNTER → 2021-11-06 15:24 | Outpatient (BNVA) | payer MEDICARE, SELFPAY | PROVIDERS: PCP Internal Medicine; Visit Provider Nurse Practitioner Family | DX: Z51.81 Encounter for therapeutic drug level monitoring (principal); M47.816 Spondylosis without myelopathy or radiculopathy, lumbar region; M53.3 Sacrococcygeal disorders, not elsewhere classified; M17.0 Bilateral primary osteoarthritis of knee; G89.4 Chronic pain syndrome | CPT/HCPCS: 99212 ==

== ENCOUNTER → 2021-11-17 14:24 | Outpatient (BNVA) | payer MEDICARE, SELFPAY | PROVIDERS: PCP Internal Medicine; Visit Provider Internal Medicine | DX: J44.9 Chronic obstructive pulmonary disease, unspecified (principal); J30.9 Allergic rhinitis, unspecified; G47.33 Obstructive sleep apnea (adult) (pediatric); Z79.899 Other long term (current) drug therapy; Z99.89 Dependence on other enabling machines and devices | CPT/HCPCS: 99212 ==

== ENCOUNTER → 2021-12-04 14:25 | Outpatient (BNVA) | payer MEDICARE, SELFPAY | PROVIDERS: PCP Internal Medicine; Visit Provider Nurse Practitioner Family | DX: G89.4 Chronic pain syndrome (principal); M47.816 Spondylosis without myelopathy or radiculopathy, lumbar region; M53.3 Sacrococcygeal disorders, not elsewhere classified; M17.0 Bilateral primary osteoarthritis of knee; Z79.891 Long term (current) use of opiate analgesic | CPT/HCPCS: 99212 ==

== ENCOUNTER → 2022-01-08 11:26 | Outpatient (BNVA) | payer MEDICARE, SELFPAY | PROVIDERS: PCP Internal Medicine; Visit Provider Nurse Practitioner Family | DX: Z51.81 Encounter for therapeutic drug level monitoring (principal); F11.20 Opioid dependence, uncomplicated; M47.816 Spondylosis without myelopathy or radiculopathy, lumbar region; M53.3 Sacrococcygeal disorders, not elsewhere classified; M17.0 Bilateral primary osteoarthritis of knee; G89.4 Chronic pain syndrome | CPT/HCPCS: 99212 ==

== ENCOUNTER 2022-02-02 06:08 | Outpatient (REF) | payer MEDICARE, SELFPAY ==
--- NOTE | ~2022-02-02 | FL_ITS ---
EXAMINATION: XR FLUOROSCOPY WITH IMAGES CLINICAL INFORMATION: Bilateral primary osteoarthritis. COMPARISON: None. TECHNIQUE: Fluoroscopy performed by Jeri Pinon NP Fluoroscopy time: 0.1 minutes DAP: 0.885 Gycm2 Images: 2 FINDINGS: There are 2 digital images obtained revealing needle positioned lateral and medial to the distal femur cortex and medial proximal tibial cortex. The visualized medial and lateral compartment joint space is normal. The soft tissues are normal. FL/FL guidance in treatment room IMPRESSION: Fluoroscopy guidance was provided to the referrer for pain management.
== END 2022-02-02 06:09 | disposition home or self-care (01) ==
LOC: HO.RADIR 06:08
PROVIDERS: Visit Provider Anesthesiology
DX: M17.0 Bilateral primary osteoarthritis of knee (principal); M25.561 Pain in right knee; G89.4 Chronic pain syndrome
CPT/HCPCS: 64454

== ENCOUNTER → 2022-02-05 12:46 | Outpatient (BNVA) | payer MEDICARE, SELFPAY | PROVIDERS: PCP Internal Medicine; Visit Provider Nurse Practitioner Family | DX: M47.816 Spondylosis without myelopathy or radiculopathy, lumbar region (principal); M53.3 Sacrococcygeal disorders, not elsewhere classified; M17.0 Bilateral primary osteoarthritis of knee; G89.4 Chronic pain syndrome; Z79.899 Other long term (current) drug therapy | CPT/HCPCS: 99212 ==

== ENCOUNTER → 2022-02-16 14:07 | Outpatient (BNVA) | payer MEDICARE, SELFPAY | PROVIDERS: PCP Internal Medicine; Visit Provider Internal Medicine | DX: J44.9 Chronic obstructive pulmonary disease, unspecified (principal); G47.33 Obstructive sleep apnea (adult) (pediatric); J30.9 Allergic rhinitis, unspecified; Z99.89 Dependence on other enabling machines and devices | CPT/HCPCS: 99212 ==

== ENCOUNTER → 2022-03-05 12:51 | Outpatient (BNVA) | payer MEDICARE, SELFPAY | PROVIDERS: PCP Internal Medicine; Visit Provider Nurse Practitioner Family | DX: Z51.81 Encounter for therapeutic drug level monitoring (principal); F11.20 Opioid dependence, uncomplicated; M47.816 Spondylosis without myelopathy or radiculopathy, lumbar region; M53.3 Sacrococcygeal disorders, not elsewhere classified; M17.0 Bilateral primary osteoarthritis of knee; M25.561 Pain in right knee; M25.562 Pain in left knee; G89.29 Other chronic pain | CPT/HCPCS: 99212 ==

== ENCOUNTER 2022-03-26 06:11 | Outpatient (REF) | payer MEDICARE, SELFPAY ==
--- NOTE | ~2022-03-26 | FL_ITS ---
EXAMINATION: XR FLUOROSCOPY WITH IMAGES CLINICAL INFORMATION: Pain left knee. COMPARISON: None. TECHNIQUE: Fluoroscopy performed by Jeri Pinon NP Fluoroscopy time: 0.1 minutes DAP: 0.320 Gy-cm2 Images: 2 FINDINGS: There are needles positioned along the medial and lateral distal femur and proximal medial tibia for pain management. The joints space is normal. 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 FL/FL guidance in treatment room IMPRESSION: Fluoroscopy guidance was provided to referrer for pain management of left knee.
== END 2022-03-26 06:12 | disposition home or self-care (01) ==
LOC: HO.RADIR 06:11
PROVIDERS: Visit Provider Internal Medicine
DX: G89.29 Other chronic pain (principal); M25.561 Pain in right knee; M25.562 Pain in left knee
CPT/HCPCS: 64450; 64454; J2795

== ENCOUNTER → 2022-03-30 10:17 | Outpatient (BNVA) | payer MEDICARE, SELFPAY | PROVIDERS: PCP Internal Medicine; Visit Provider Anesthesiology | DX: Z13.89 Encounter for screening for other disorder (principal) | CPT/HCPCS: Q3014 ==

== ENCOUNTER → 2022-04-09 14:51 | Outpatient (BNVA) | payer MEDICARE, SELFPAY | PROVIDERS: PCP Internal Medicine; Visit Provider Nurse Practitioner Family | DX: M47.816 Spondylosis without myelopathy or radiculopathy, lumbar region (principal); M53.3 Sacrococcygeal disorders, not elsewhere classified; M17.0 Bilateral primary osteoarthritis of knee; G89.4 Chronic pain syndrome; G89.29 Other chronic pain; M25.561 Pain in right knee; M25.562 Pain in left knee; Z79.891 Long term (current) use of opiate analgesic | CPT/HCPCS: 99212 ==

== ENCOUNTER → 2022-05-07 14:44 | Outpatient (BNVA) | payer MEDICARE, SELFPAY | PROVIDERS: PCP Internal Medicine; Visit Provider Nurse Practitioner Family | DX: G89.4 Chronic pain syndrome (principal); M47.816 Spondylosis without myelopathy or radiculopathy, lumbar region; M53.3 Sacrococcygeal disorders, not elsewhere classified; M17.0 Bilateral primary osteoarthritis of knee; G89.29 Other chronic pain; M25.561 Pain in right knee; M25.562 Pain in left knee; Z79.891 Long term (current) use of opiate analgesic | CPT/HCPCS: 99212 ==

== ENCOUNTER 2022-05-26 14:46 | Day surgery (SDC) | payer MEDICARE, SELFPAY ==
[2022-05-26 16:00] VITALS: BMI 36.8
[2022-05-26 16:02] VITALS: BP 166/83; PULSE 60; RESP 16; TEMP 36.2; O2SAT 96
--- NOTE | 2022-05-26 16:22 | MHC.SHP ---
Pre-Procedural Eval Section A Date of Service: 05/26/22 The patient is an INPATIENT: No Changes since office visit: Yes Patient answered all questions The History & Physical has been completed within 30 days and I have reviewed it.: Yes Section B Chief Complaint: Left knee pain Relevant Family History (Specify if Yes): No Relevant Social History: Other (specify) Present Medications: see Short Stay Collaborative assessment Medical History: No relevant PMH History of Previous Operations: No relevant previous surgery Allergies: Allergies Allergy/AdvReac Type Severity Reaction Status Date / Time hydrocortisone Allergy Severe SWELLING Verified 05/07/22 14:50 [HYDROCORTISONE] NSAIDS (Non-Steroidal Allergy Severe BLEEDING Verified 05/07/22 14:50 Anti-Inflamma [NSAIDS (NON-STEROIDAL ANTI-INFLAMMA] aspirin Allergy Unknown bleeding Verified 05/07/22 14:50 doxycycline AdvReac Severe in-effectiv Verified 05/07/22 14:50 e Review of Systems Sugical H&P ROS: Negative: Constitution, Cardiovascular and Respiratory Exam Surgical H&P Exam: Normal: HEENT, Normal: Heart and Normal: Lungs Plan Diagnosis/Plan: Unchanged I have reviewed the history and physical and performed a pertinent physical examination on my patient. No changes have occurred unless specified. Proceed with LEFT knee PNS trial. Patient agrees.
[2022-05-26 16:52] VITALS: BP 141/76; PULSE 64; RESP 18; TEMP 37.1; O2SAT 96
--- NOTE | 2022-05-27 12:23 | PM.OP ---
Brief Operative Note Date of Service: 05/26/22 Pre-op diagnosis: Left knee pain Post-op diagnosis: same Procedure: Left saphenous nerve PNS trial lead placement Implants: Temporary PNS lead placement, Sprint system Surgeon: Irving Hill MD Anesthesia: local Was an Station Mechanic Helper used for this Procedure?: No Estimated blood loss (mL): 1 Pathology: none sent Condition: stable Disposition: same day
--- NOTE | 2022-05-27 12:25 | P.OP_ITS ---
Operative Note Operative Note Date of Service: 05/26/22 Narrative: Peripheral Nerve Stimulation Temporary Lead Placement, Ultrasound-Guided, Saphenous Nerve, Left ? After the risks, benefits and alternatives were discussed with the patient and informed consentwas obtained, patient was placed in the supine position and padded to foster comfort. Appropriate skin and bony landmarks were identified, and pertinent vascular structures were located. The skin overlying the needle entry site was prepped and draped in sterile fashion. Ultrasound was used to identify the femoral artery, the femoral vein and the saphenous nerve. After identifying and marking the intended target along the course of the saphenous nerve, the skin around the planned entry point and the subcutaneous tissues were injected with local anesthetic. An introducer needle and stimulating probe were assembled, inserted and advanced along the intended course of the saphenous nerve, taking care to maintain the proper depth of insertion as the introducer was advanced under ultrasound guidance. The introducer needle was delivered to a location in proximity to the nerve taking care not to puncture the femoral artery or the vein. Multiple stimulation parameters were used to deliver stimulation to the saphenous nerve in concert with stimulating at multiple positions around the nerve. Nerve target acquisition was confirmed noting generation of sensory and mild motor effects (paresthesia, muscle tension, etc) in the medial knee, leg and ankle; corresponding to the distribution of the saphenous nerve. Various electrical parameter combinations were tested, and the lead location was adjusted (physical ly relocated under ultrasound guidance) until the patient indicated medial knee paresthesia and tension overlapping the distribution of the patient?s typical region of pain. The stimulating probe was removed from the introducer and a percutaneous lead was guided through the needle and delivered to a location in similar proximity to the nerve. Final location was verified with electrical stimulation and documented. The introducer needle was removed, and the exposed end of the percutaneous lead was attached to an external stimulator unit. Various electrical parameter combinations were again tested until the patient indicated paresthesia and muscle tension overlapping the distribution of the patient?s typical region of pain. After confirming that lead impedance was in the normal range, the external unit was detached, the needle was removed, and the lead was anchored at the skin. The lead was threaded into the connector block and electrical continuity and desired patient response was confirmed. The connector block was attached to the external stimulator unit. The site was covered with a sterile occlusive dressing. A final ultrasound image was taken to document final placement. The patient was observed for stability of vital signs and comfort.
== END 2022-05-26 17:14 | disposition home or self-care (01) ==
PROVIDERS: PCP Internal Medicine; Visit Provider Internal Medicine
PROC: (CPT 64555; principal; 2022-05-26 15:00)
DX: M17.0 Bilateral primary osteoarthritis of knee (principal); G89.4 Chronic pain syndrome; M25.561 Pain in right knee; M25.562 Pain in left knee; M47.816 Spondylosis without myelopathy or radiculopathy, lumbar region; M53.3 Sacrococcygeal disorders, not elsewhere classified; J44.9 Chronic obstructive pulmonary disease, unspecified; F32.A Depression, unspecified; I10 Essential (primary) hypertension; E11.9 Type 2 diabetes mellitus without complications; G47.33 Obstructive sleep apnea (adult) (pediatric); Z99.89 Dependence on other enabling machines and devices; Z88.8 Allergy status to other drugs, medicaments and biological substances; Z87.891 Personal history of nicotine dependence
CPT/HCPCS: 64555; C1778

== ENCOUNTER → 2022-06-04 14:13 | Outpatient (BNVA) | payer MEDICARE, SELFPAY | PROVIDERS: PCP Internal Medicine; Visit Provider Nurse Practitioner Family | DX: M47.816 Spondylosis without myelopathy or radiculopathy, lumbar region (principal); M53.3 Sacrococcygeal disorders, not elsewhere classified; M17.0 Bilateral primary osteoarthritis of knee; G89.4 Chronic pain syndrome | CPT/HCPCS: 99212 ==

== ENCOUNTER → 2022-06-15 13:46 | Outpatient (BNVA) | payer MEDICARE, SELFPAY | PROVIDERS: PCP Internal Medicine; Visit Provider Internal Medicine | DX: J44.9 Chronic obstructive pulmonary disease, unspecified (principal); J30.9 Allergic rhinitis, unspecified; G47.33 Obstructive sleep apnea (adult) (pediatric); Z99.89 Dependence on other enabling machines and devices | CPT/HCPCS: 99212 ==

== ENCOUNTER → 2022-07-02 14:08 | Outpatient (BNVA) | payer MEDICARE, SELFPAY | PROVIDERS: PCP Internal Medicine; Visit Provider Nurse Practitioner Family | DX: Z51.81 Encounter for therapeutic drug level monitoring (principal); F11.20 Opioid dependence, uncomplicated | CPT/HCPCS: 99211 ==

== ENCOUNTER 2022-07-21 10:16 | Day surgery (SDC) | payer MEDICARE, SELFPAY ==
[2022-07-21 10:31] VITALS: BMI 35.7
[2022-07-21 10:38] VITALS: BP 138/59; PULSE 65; RESP 16; TEMP 36.7; O2SAT 92
--- NOTE | 2022-07-21 12:25 | MHC.SHP ---
Pre-Procedural Eval Section A Date of Service: 07/21/22 The patient is an INPATIENT: No Changes since office visit: Yes Patient answered all questions The History & Physical has been completed within 30 days and I have reviewed it.: No Section B Chief Complaint: Osteoarthritis right knee, chronic right knee pain Relevant Family History (Specify if Yes): No Relevant Social History: None Present Medications: see Short Stay Collaborative assessment Medical History: No relevant PMH History of Previous Operations: No relevant previous surgery Allergies: Allergies Allergy/AdvReac Type Severity Reaction Status Date / Time hydrocortisone Allergy Severe SWELLING Verified 07/02/22 14:13 [HYDROCORTISONE] NSAIDS (Non-Steroidal Allergy Severe BLEEDING Verified 07/02/22 14:13 Anti-Inflamma [NSAIDS (NON-STEROIDAL ANTI-INFLAMMA] aspirin Allergy Unknown bleeding Verified 07/02/22 14:13 doxycycline AdvReac Severe in-effectiv Verified 07/02/22 14:13 e Review of Systems Sugical H&P ROS: Negative: Constitution, Cardiovascular and Respiratory Exam Surgical H&P Exam: Normal: HEENT, Normal: Heart and Normal: Lungs Plan Diagnosis/Plan: Unchanged I have reviewed the history and physical and performed a pertinent physical examination on my patient. No changes have occurred unless specified.
[2022-07-21 13:07] VITALS: BP 157/78; PULSE 66; RESP 17; TEMP 36.4; O2SAT 96
--- NOTE | 2022-07-26 10:32 | PM.OP ---
Brief Operative Note Date of Service: 07/21/22 Pre-op diagnosis: Chronic right knee pain Post-op diagnosis: same Procedure: Placement of temporary peripheral nerve stimulator of the right saphenous nerve at the level of the adductor canal Surgeon: Irving Hill MD Anesthesia: local Was an Ecommerce Marketing Manager used for this Procedure?: No Estimated blood loss (mL): 2 Pathology: none sent Condition: stable Disposition: same day
--- NOTE | 2022-07-26 10:34 | P.OP_ITS ---
Operative Note Operative Note Date of Service: 07/21/22 Narrative: Peripheral Nerve Stimulation Temporary Lead Placement, Ultrasound-Guided, Saphenous Nerve, RIGHT ? After the risks, benefits and alternatives were discussed with the patient and informed consentwas obtained, patient was placed in the supine position and padded to foster comfort. Appropriate skin and bony landmarks were identified, and pertinent vascular structures were located. The skin overlying the needle entry site was prepped and draped in sterile fashion. Ultrasound was used to identify the femoral artery, the femoral vein and the saphenous nerve. After identifying and marking the intended target along the course of the Saphenous nerve, the skin around the planned entry point and the subcutaneous tissues was injected with local anesthetic. An introducer needle and stimulating probe were assembled, inserted and advanced along the intended course of the saphenous; nerve, taking care to maintain the proper depth of insertion as the introducer was advanced under ultrasound guidance. The introducer needle was delivered to a location in proximity to the nerve taking care not to puncture the femoral artery or the vein. Multiple stimulation parameters were used to deliver stimulation to the saphenous nerve in concert with stimulating at multiple positions around the nerve. Nerve target acquisition was confirmed noting generation of sensory and mild motor effects (paresthesia, muscle tension, etc) in the medial knee, leg and ankle; corresponding to the distribution of the saphenous nerve. Various electrical parameter combinations were tested, and the lead location was adjusted (physica lly relocated under ultrasound guidance) until the patient indicated medial knee paresthesia and tension overlapping the distribution of the patient?s typical region of pain. The stimulating probe was removed from the introducer and a percutaneous lead was guided through the needle and delivered to a location in similar proximity to the nerve. Final location was verified with electrical stimulation and documented. The introducer needle was removed, and the exposed end of the percutaneous lead was attached to an external stimulator unit. Various electrical parameter combinations were again tested until the patient indicated paresthesia and muscle tension overlapping the distribution of the patient?s typical region of pain. After confirming that lead impedance was in the normal range, the external unit was detached, the needle was removed, and the lead was anchored at the skin. The lead was threaded into the connector block and electrical continuity and desired patient response was confirmed. The connector block was attached to the external stimulator unit. The site was covered with a sterile occlusive dressing. A final ultrasound image was taken to document final placement. The patient was observed for stability of vital signs and comfort.
== END 2022-07-21 14:10 | disposition home or self-care (01) ==
PROVIDERS: PCP Internal Medicine; Visit Provider Internal Medicine
PROC: (CPT 64555; principal; 2022-07-21 11:30)
DX: M17.11 Unilateral primary osteoarthritis, right knee (principal); G89.4 Chronic pain syndrome; M25.561 Pain in right knee; I10 Essential (primary) hypertension; M47.816 Spondylosis without myelopathy or radiculopathy, lumbar region; M53.3 Sacrococcygeal disorders, not elsewhere classified; E11.9 Type 2 diabetes mellitus without complications; K50.90 Crohn's disease, unspecified, without complications; J44.9 Chronic obstructive pulmonary disease, unspecified; G47.33 Obstructive sleep apnea (adult) (pediatric); Z79.51 Long term (current) use of inhaled steroids; Z79.4 Long term (current) use of insulin; Z79.899 Other long term (current) drug therapy; Z99.89 Dependence on other enabling machines and devices; Z88.8 Allergy status to other drugs, medicaments and biological substances; Z87.891 Personal history of nicotine dependence
CPT/HCPCS: 64555; C1778

== ENCOUNTER → 2022-07-30 09:59 | Outpatient (BNVA) | payer MEDICARE, SELFPAY | PROVIDERS: PCP Internal Medicine; Visit Provider Internal Medicine | DX: Z51.81 Encounter for therapeutic drug level monitoring (principal); F11.20 Opioid dependence, uncomplicated; M17.0 Bilateral primary osteoarthritis of knee; Z18.9 Retained foreign body fragments, unspecified material | CPT/HCPCS: 99212 ==

== ENCOUNTER 2022-08-10 10:05 | Outpatient (REF) | payer MEDICARE, SELFPAY ==
[2022-08-10 11:12] LABS: Alanine Aminotransferase 13 U/L (0-40); Albumin Level 3.8 g/dL (3.5-5.0); Alkaline Phosphatase 85 U/L (39-117); Anion Gap 13 (12-20); Aspartate Amino Transferase 14 U/L (5-37); Bilirubin Total 0.4 mg/dL (0.0-1.0); Blood Urea Nitrogen 18 mg/dL (9-16); Calcium 9.9 mg/dL (8.4-10.2); Carbon Dioxide 32 mmol/L (22-29); Chloride 101 mmol/L (96-108); Estimated Glomerular Filt Rate > 60; Glucose Random 96 mg/dL (60-115); Potassium 3.8 mmol/L (3.3-5.1); Sodium 142 mmol/L (135-145); Total Protein 6.4 g/dL (6.5-8.0)
== END 2022-08-10 10:06 | disposition home or self-care (01) ==
LOC: HO.LAB 10:05
PROVIDERS: PCP Internal Medicine; Visit Provider Anesthesiology
DX: G89.4 Chronic pain syndrome (principal)
CPT/HCPCS: 36415; 80053

== ENCOUNTER → 2022-08-12 15:02 | Outpatient (BNVA) | payer MEDICARE, SELFPAY | PROVIDERS: PCP Internal Medicine; Visit Provider Internal Medicine | DX: J44.9 Chronic obstructive pulmonary disease, unspecified (principal); G47.33 Obstructive sleep apnea (adult) (pediatric); J45.909 Unspecified asthma, uncomplicated; Z79.891 Long term (current) use of opiate analgesic; Z99.89 Dependence on other enabling machines and devices | CPT/HCPCS: 99212 ==

== ENCOUNTER 2022-09-01 14:10 | Emergency (ER) | payer MEDICARE, SELFPAY ==
[2022-09-01 14:48] VITALS: BP 104/57; PULSE 87; RESP 18; TEMP 36.6; O2SAT 98; BMI 36.5
[2022-09-01 16:04] LABS: MANUAL DIFF FLAG NO
[2022-09-01 16:06] LABS: Basophils Percent Auto 0.2 % (0-2); Eosinophils Percent Auto 0.1 % (0-4); Hematocrit 44.1 % (42.0-52.0); Hemoglobin 13.8 g/dl (14.0-18.0); Imm Gran Abs Auto 0.04 X10*3/uL (0.00-0.03); Imm Gran Pct Auto 0.3 % (0.0-0.4); Lymphocytes Percent Auto 15.3 % (20-40); Mean Corpuscular HGB Conc 31.3 g/dl (31.0-36.0); Mean Corpuscular Hemoglobin 22.7 pg (27.0-33.0); Mean Corpuscular Volume 72.5 fL (80.0-98.0); Mean Platelet Volume 10.6 fL (9.4-12.4); Monocytes Percent Auto 7.6 % (2-11); Neutrophils Percent Auto 76.5 % (45-73); Platelet Count 494 X10*3/uL (160-400); Red Blood Count 6.08 X10*6/uL (4.60-5.80); Red Cell Distribution Width 18.6 % (11.0-16.0)
[2022-09-01 16:22] LABS: Alanine Aminotransferase 14 U/L (0-40); Albumin Level 4.5 g/dL (3.5-5.0); Alkaline Phosphatase 112 U/L (39-117); Anion Gap 16 (12-20); Aspartate Amino Transferase 22 U/L (5-37); Bilirubin Direct 0.2 mg/dL (0.0-0.5); Bilirubin Total 0.4 mg/dL (0.0-1.0); Blood Urea Nitrogen 23 mg/dL (9-16); Calcium 10.5 mg/dL (8.4-10.2); Carbon Dioxide 27 mmol/L (22-29); Chloride 101 mmol/L (96-108); Estimated Glomerular Filt Rate > 60; Glucose Random 170 mg/dL (60-115); Potassium 4.1 mmol/L (3.3-5.1); Sodium 140 mmol/L (135-145); Total Protein 7.9 g/dL (6.5-8.0)
[2022-09-01 16:38] LABS: Appearance Urine Clear; Color Urine Dark Yellow; Glucose Urine UA Negative (Negative); Leukocyte Esterase Urine Trace (Negative); Nitrite Urine Negative (Negative); PH 5.5 (5.0-9.0); Specific Gravity - Urine >= 1.030 (1.005-1.025); UMIC TRIGGER UACC YES; Urine Blood Negative (Negative); Urine Ketones Trace mg/dL (Negative); Urine Protein 100 (2+) mg/dL (Neg-Trace)
[2022-09-01 16:51] LABS: Bacteria Urine None Seen (None Seen); Hyaline Casts Urine 0-2 /LPF (0-2); UACC Culture Trigger YES
== END 2022-09-01 23:05 | disposition left against medical advice (07) ==
LOC: HO.ED 22:59
PROVIDERS: Emergency Provider Emergency Medicine; PCP Internal Medicine
DX: R10.9 Unspecified abdominal pain (principal); Z79.899 Other long term (current) drug therapy
CPT/HCPCS: 36415; 80053; 81001; 82248; 85025; 87086; 99282; 99283

== ENCOUNTER → 2022-09-03 10:12 | Outpatient (BNVA) | payer MEDICARE, SELFPAY | PROVIDERS: PCP Internal Medicine; Visit Provider Nurse Practitioner Family | DX: Z79.891 Long term (current) use of opiate analgesic (principal); Z51.81 Encounter for therapeutic drug level monitoring | CPT/HCPCS: 99211 ==

== ENCOUNTER → 2022-10-08 15:49 | Outpatient (BNVA) | payer MEDICARE, SELFPAY | PROVIDERS: PCP Internal Medicine; Visit Provider Nurse Practitioner Family | DX: G89.4 Chronic pain syndrome (principal); M47.816 Spondylosis without myelopathy or radiculopathy, lumbar region; M53.3 Sacrococcygeal disorders, not elsewhere classified; M17.0 Bilateral primary osteoarthritis of knee; G89.29 Other chronic pain; M25.561 Pain in right knee; M25.562 Pain in left knee; Z79.891 Long term (current) use of opiate analgesic | CPT/HCPCS: 99212 ==

== ENCOUNTER → 2022-10-12 13:37 | Outpatient (BNVA) | payer MEDICARE, SELFPAY | PROVIDERS: PCP Internal Medicine; Visit Provider Internal Medicine | DX: J44.9 Chronic obstructive pulmonary disease, unspecified (principal); J30.9 Allergic rhinitis, unspecified; G47.33 Obstructive sleep apnea (adult) (pediatric); Z99.89 Dependence on other enabling machines and devices | CPT/HCPCS: 99212 ==

== ENCOUNTER → 2022-11-05 15:25 | Outpatient (BNVA) | payer MEDICARE, SELFPAY | PROVIDERS: PCP Internal Medicine; Visit Provider Nurse Practitioner Family | DX: Z13.89 Encounter for screening for other disorder (principal) ==

== ENCOUNTER → 2022-11-23 14:01 | Outpatient (BNVA) | payer MEDICARE, SELFPAY | PROVIDERS: PCP Internal Medicine; Visit Provider Internal Medicine | DX: J44.9 Chronic obstructive pulmonary disease, unspecified (principal) | CPT/HCPCS: 94618; 99211 ==

== ENCOUNTER → 2022-12-01 15:14 | Outpatient (BNVA) | payer MEDICARE, SELFPAY | PROVIDERS: PCP Internal Medicine; Visit Provider Anesthesiology | DX: Z51.81 Encounter for therapeutic drug level monitoring (principal); M17.0 Bilateral primary osteoarthritis of knee; Z18.9 Retained foreign body fragments, unspecified material; Z79.891 Long term (current) use of opiate analgesic | CPT/HCPCS: 99212 ==

== ENCOUNTER → 2022-12-29 15:33 | Outpatient (BNVA) | payer MEDICARE, SELFPAY | PROVIDERS: PCP Internal Medicine; Visit Provider Anesthesiology | DX: M25.561 Pain in right knee (principal); M25.562 Pain in left knee; M17.0 Bilateral primary osteoarthritis of knee; G89.29 Other chronic pain; E66.01 Morbid (severe) obesity due to excess calories; Z68.36 Body mass index [BMI] 36.0-36.9, adult; Z79.891 Long term (current) use of opiate analgesic | CPT/HCPCS: 99212 ==

== ENCOUNTER → 2023-01-26 15:31 | Outpatient (BNVA) | payer MEDICARE, SELFPAY | PROVIDERS: PCP Internal Medicine; Visit Provider Anesthesiology | DX: Z51.81 Encounter for therapeutic drug level monitoring (principal); F11.20 Opioid dependence, uncomplicated; M17.0 Bilateral primary osteoarthritis of knee; M25.561 Pain in right knee; M25.562 Pain in left knee; M17.11 Unilateral primary osteoarthritis, right knee; E66.01 Morbid (severe) obesity due to excess calories; G89.29 Other chronic pain; Z18.9 Retained foreign body fragments, unspecified material; Z79.891 Long term (current) use of opiate analgesic; Z68.37 Body mass index [BMI] 37.0-37.9, adult | CPT/HCPCS: 99212 ==

== ENCOUNTER 2023-02-22 06:12 | Outpatient (REF) | payer MEDICARE, SELFPAY ==
--- NOTE | ~2023-02-22 | FL_ITS ---
EXAMINATION: XR FLUOROSCOPY WITH IMAGES CLINICAL INFORMATION: M25.561 - Pain in right knee COMPARISON: Radiographs right knee 03/23/2021 TECHNIQUE: Fluoroscopy Supervised By: Dr. Shaheen Roman. Fluoroscopy Time: 0.2 minutes. Cumulative Dose: 6.48 mGy. DAP: 1.76 Gycm2. Images: 1. FINDINGS: There are 2 spinal needles overlying the distal right femoral shaft, mid depth, presumably medial and lateral sides. There is a spinal needle overlying the proximal tibia mid depth. FL/FL guidance in treatment room IMPRESSION: Fluoroscopy for pain management procedures.
== END 2023-02-22 06:13 | disposition home or self-care (01) ==
LOC: CF 06:12
PROVIDERS: Visit Provider Anesthesiology
DX: M25.561 Pain in right knee (principal)
CPT/HCPCS: 64454

== ENCOUNTER → 2023-02-28 13:26 | Outpatient (BNVA) | payer MEDICARE, SELFPAY | PROVIDERS: PCP Internal Medicine; Visit Provider Anesthesiology | DX: M17.0 Bilateral primary osteoarthritis of knee (principal); M25.561 Pain in right knee; M25.562 Pain in left knee; M17.11 Unilateral primary osteoarthritis, right knee; G89.29 Other chronic pain; E66.01 Morbid (severe) obesity due to excess calories; Z79.891 Long term (current) use of opiate analgesic; Z18.9 Retained foreign body fragments, unspecified material | CPT/HCPCS: Q3014 ==

== ENCOUNTER → 2023-03-02 14:50 | Outpatient (BNVA) | payer MEDICARE, SELFPAY | PROVIDERS: PCP Internal Medicine; Visit Provider Anesthesiology | DX: Z51.81 Encounter for therapeutic drug level monitoring (principal); F11.20 Opioid dependence, uncomplicated | CPT/HCPCS: 99211 ==

== ENCOUNTER 2023-03-31 12:45 | Day surgery (SDC) | payer MEDICARE, SELFPAY ==
--- NOTE | ~2023-03-31 | FL_ITS ---
EXAMINATION: XR FLUOROSCOPY WITH IMAGES CLINICAL INFORMATION: March healing nerve RFA COMPARISON: None available. TECHNIQUE: Fluoroscopy Supervised By: Dr. Shaheen Roman. Fluoroscopy Time: 0.2 minutes. Cumulative Dose: 1.7 mGy. DAP: 0.03 Gycm2. Images: 2. FINDINGS: Lateral images demonstrate 2 probes projecting over the distal femoral shaft and single probe projecting over the proximal tibial shaft. FL/FL guidance in OR IMPRESSION: Fluoroscopy guidance for geniculate nerve procedure.
[2023-03-31 13:39] VITALS: BP 130/72; PULSE 89; RESP 18; TEMP 36.3; O2SAT 94; BMI 36.5
--- NOTE | 2023-03-31 15:08 | MHC.SHP ---
Pre-Procedural Eval Section A Date of Service: 03/31/23 The patient is an INPATIENT: No Changes since office visit: Yes Patient answered all questions The History & Physical has been completed within 30 days and I have reviewed it.: No Section B Chief Complaint: Unilateral primary osteoarthritis, right knee,pain Details of Present Illness: as above Relevant Family History (Specify if Yes): No Relevant Social History: None Present Medications: see Short Stay Collaborative assessment Medical History: No relevant PMH History of Previous Operations: No relevant previous surgery Allergies: Allergies Allergy/AdvReac Type Severity Reaction Status Date / Time hydrocortisone Allergy Severe SWELLING Verified 03/03/23 15:44 [HYDROCORTISONE] NSAIDS (Non-Steroidal Allergy Severe BLEEDING Verified 03/03/23 15:44 Anti-Inflamma [NSAIDS (NON-STEROIDAL ANTI-INFLAMMA] aspirin Allergy Unknown bleeding Verified 03/03/23 15:44 doxycycline AdvReac Severe in-effectiv Verified 03/03/23 15:44 e Review of Systems Sugical H&P ROS: Negative: Constitution, Cardiovascular, Respiratory, Neurological, Psychiatric, Hem-Onc, Allergic/Immunologic, Gastrointestinal, Genitourinary, Musculoskeletal, Integumentary, Endocrine and Eyes/Ears/Nose/Throat Exam Surgical H&P Exam: Normal: HEENT, Normal: Heart, Normal: Lungs, Normal: Extremities, Normal: Abdomen, Normal: Skin and Normal: Neurological Plan Diagnosis/Plan: Unchanged I have reviewed the history and physical and performed a pertinent physical examination on my patient. No changes have occurred unless specified. Time Spent With Patient Time: Total time managing care of this patient today ____ minutes.
--- NOTE | 2023-03-31 15:13 | P.BOP_ITS ---
Brief Operative Note Date of Service: 03/31/23 Pre-op diagnosis: right knee osteoarthritis Post-op diagnosis: same Procedure: right knee Cooled RFA genicular nerves Surgeon: Shaheen Roman MD Anesthesia: local Was an Fried Cake Maker used for this Procedure?: No Estimated blood loss (mL): 4 Condition: stable Disposition: PACU
--- NOTE | 2023-03-31 15:14 | W.PM.OPN ---
Operative Note Operative Note Date of Service: 03/31/23 Narrative: RIGHT KNEE GENICULAR NERVES COOLED RFA. Informed consent was obtained , the patient was brought to the OR and positioned supine on ORT. Time-out was performed delineating correct site, side, the nature of the procedure, patient's allergy, preoperative antibiotic if needed. All operating room staff was participating in OR time-out procedure. C-arm was brought over the operating field and picture of the right knee was demonstrated on the screen. Anterolateral and anteromedial surfaces of the knee were prepped with chloroprep and draped with sterile utility towels.The point of interest were delineated for: superior lateral genicular nerve as the confluence of the metaphysis of the femur with corresponding diaphysis on the lateral silhouette of the femur distal bone,For superior medial genicular nerve (suprapatelar saphenous nerve) the point of interest was delineated as the confluence of the silhouette of the metaphysis of the femur with corresponding diaphysis on the medial silhouette on the femoral distal bone. For inferior medial genicular nerve ( Infrapatellar saphenous nerve) the point of interest was delineated as the confluence of metaphysis of the proximal tibia on the medial side with corresponding diaphysis of the same bone. The projections of the points of interest on anterior surface of the right knee was injected with small amount of mixture of lidocaine 1% and ropivacaine 2% 1-to 2 ml. After that 3 cooled radiofrequency canulas 50 mm long were driven to the point of interest in tunnel vision fashion. When needles gently contacted the bones the position of the C-arm was switched to the lateral view, care was taken to superimpose the the femoral condyles of the knee one over the other. The position of the canulas were adjusted to assure that the tip of the canulas are located at the mid shaft of each of the above described bones. After that small amount of mixture of the same local anesthetic mixture as above and a trace amount of kenalog was injected into each canula position. total amount of local anesthetics was 4.5 cc. The cooled RFA machine was connected to the canulas in usual fashion and energy applied with temperature of the canulas of 60 degrees C, for the 2.5 minutes. When energy application was completed the canulas were removed and sterile dressing was applied. Patient went to PACU where he recovered uneventfully.
[2023-03-31 15:58] VITALS: BP 140/57; PULSE 66; RESP 18; TEMP 37.1; O2SAT 93
== END 2023-03-31 16:05 | disposition home or self-care (01) ==
PROVIDERS: PCP Internal Medicine; Visit Provider Anesthesiology
PROC: (CPT 64624; principal; 2023-03-31 14:20)
DX: M25.561 Pain in right knee (principal); M17.11 Unilateral primary osteoarthritis, right knee; G89.4 Chronic pain syndrome; Z18.9 Retained foreign body fragments, unspecified material; M47.26 Other spondylosis with radiculopathy, lumbar region; I10 Essential (primary) hypertension; J45.909 Unspecified asthma, uncomplicated; E11.9 Type 2 diabetes mellitus without complications; E66.01 Morbid (severe) obesity due to excess calories; G47.33 Obstructive sleep apnea (adult) (pediatric); Z99.89 Dependence on other enabling machines and devices; Z79.891 Long term (current) use of opiate analgesic; Z88.1 Allergy status to other antibiotic agents; Z88.8 Allergy status to other drugs, medicaments and biological substances; Z87.891 Personal history of nicotine dependence
CPT/HCPCS: 64624; J2795; J3301

== ENCOUNTER → 2023-04-06 14:41 | Outpatient (BNVA) | payer MEDICARE, SELFPAY | PROVIDERS: PCP Internal Medicine; Visit Provider Anesthesiology | DX: M17.0 Bilateral primary osteoarthritis of knee (principal); G89.29 Other chronic pain; M25.561 Pain in right knee; M25.562 Pain in left knee; E66.01 Morbid (severe) obesity due to excess calories; Z68.36 Body mass index [BMI] 36.0-36.9, adult; Z18.9 Retained foreign body fragments, unspecified material; Z79.891 Long term (current) use of opiate analgesic | CPT/HCPCS: 99212 ==

== ENCOUNTER 2023-04-23 19:46 | Emergency (ER) | payer MEDICARE, SELFPAY ==
--- NOTE | ~2023-04-23 | XR_ITS ---
EXAMINATION: XR CHEST CLINICAL INFORMATION: Chest pain COMPARISON: 05/06/2020 TECHNIQUE: Frontal view of the chest was obtained. FINDINGS: Mild right basilar atelectasis/infiltrate. Left lung is clear. The cardiac silhouette is within normal limits. The hilar regions are felt to be comparable. No effusion. XR/XR chest 1V IMPRESSION: Mild Right lower lobe atelectasis/infiltrate
--- NOTE | 2023-04-23 19:48 | ECG_ITS ---
Test Reason : SOB Blood Pressure : / mmHG Vent. Rate : 059 BPM Atrial Rate : 059 BPM P-R Int : 168 ms QRS Dur : 108 ms QT Int : 426 ms P-R-T Axes : 039 000 028 degrees QTc Int : 421 ms Sinus bradycardia Otherwise normal ECG When compared with ECG of 08-MAY-2021 04:39, QT has shortened Referred By: Tere Ospina Electronically Signed By:CONCHITA HICKS
[2023-04-23 19:54] VITALS: BP 130/66; PULSE 63; RESP 20; TEMP 36.6; O2SAT 93; BMI 35.0
--- NOTE | 2023-04-23 19:55 | ED_ITS ---
HPI - Chest Pain General Chief Complaint: Dyspnea Stated Complaint: asthma,chest pain Time Seen by Provider: 04/23/23 20:12 Related Data Home Medications Medication Instructions Recorded Confirmed latanoprost 0.005 % eye drops 1 drp ophthalmic (eye) QPM 11/17/21 03/31/23 timolol maleate 0.5 % eye drops 1 drp ophthalmic (eye) BID 11/17/21 03/31/23 hydroxyzine pamoate 25 mg capsule 25 mg PO DAILY PRN allergies 10/08/22 03/31/23 Previous Rx's Medication Instructions Recorded insulin syringe,safetyneedle 0.3 #100 ea 09/28/21 mL 29 gauge x 1/2 naloxone 4 mg/actuation nasal 4 mg intranasal Q2M PRN opioid 10/29/21 spray (Narcan) overdose #2 ea blood-glucose meter (FreeStyle #1 ea 02/09/22 Lite Meter kit) lancets 33 gauge (OneTouch Delica #100 ea 02/09/22 Plus Lancet) pen needle, diabetic 32 gauge x #100 ea 04/09/2216 (Comfort EZ Pen Mobile) tizanidine 2 mg tablet 2 mg PO Q8H PRN muscle spasticity 05/07/22 #45 tabs fluticasone propionate 115 2 puff inhalation BID ASTHMA/COPD 06/15/22 mcg-salmeterol 21 mcg/actuation 30 days #12 grams HFA inhaler (Advair HFA) blood sugar diagnostic (FreeStyle #100 ea 09/13/22 Lite Strips) albuterol sulfate 90 mcg/actuation 2 puff inhalation Q4-6H PRN for 11/03/22 aerosol inhaler wheezing #1 ea chlorthalidone 25 mg tablet 25 mg PO QAM #90 tabs 11/13/22 metoprolol succinate 50 mg 50 mg PO DAILY #90 tabs 11/13/22 tablet,extended release 24 hr pantoprazole 20 mg tablet,delayed 20 mg PO DAILY #90 tabs 11/13/22 release pravastatin 20 mg tablet 20 mg PO DAILY #90 tabs 11/13/22 venlafaxine 75 mg tablet 75 mg PO .COMPLEX #270 tabs 11/20/22 insulin lispro 100 unit/mL 15 unit (0.15 mL) subcut TID 30 12/13/22 subcutaneous pen (Humalog KwikPen days #15 mL (U-100) Insulin) trazodone 100 mg tablet 100 mg PO BEDTIME PRN sleep 90 01/13/23 days #90 tabs insulin glargine 100 unit/mL (3 30 unit (0.3 mL) subcut QPM 30 03/17/23 mL) subcutaneous pen (Lantus days #15 mL Solostar U-100 Insulin) hydroxyzine HCl 25 mg tablet 25 mg PO BID PRN Opioid withdrawal 04/06/23 30 days #60 tabs oxycodone 15 mg tablet 15 mg PO TID PRN pain, severe 30 04/06/23 days #90 tabs tizanidine 2 mg tablet 2 mg PO TID PRN opioid withdrawal 04/06/23 30 days #90 tabs Allergies Allergy/AdvReac Type Severity Reaction Status Date / Time hydrocortisone Allergy Severe SWELLING Verified 03/03/23 15:44 [HYDROCORTISONE] NSAIDS (Non-Steroidal Allergy Severe BLEEDING Verified 03/03/23 15:44 Anti-Inflamma [NSAIDS (NON-STEROIDAL ANTI-INFLAMMA] aspirin Allergy Unknown bleeding Verified 03/03/23 15:44 doxycycline AdvReac Severe in-effectiv Verified 03/03/23 15:44 e PMFSH Past Medical History Medical History (Updated 12/29/22 @ 16:18 by Shaheen Roman MD) Allergic rhinitis Allergic rhinitis Arthritis Arthritis of both knees Asthma Asthma Back pain Benign prostatic hyperplasia Bilateral primary osteoarthritis of knee Chronic pain syndrome Class 2 severe obesity with body mass index (BMI) of 35 to 39.9 with serious comorbidity COPD (chronic obstructive pulmonary disease) COPD exacerbation Crohn disease Depression Diabetes mellitus type 2, uncontrolled HTN (hypertension) Lumbar radiculopathy Lumbar spondylosis VIDA on CPAP Osteoarthritis of right knee Sleep apnea Tendon tear Surgical History H/O colonoscopy Family History Family History Father No problems noted. Mother No problems noted. Social History Social History Housing: House Alcohol intake: never Patient Tobacco Use Status: Former Tobacco user e-Cigarette/Vaping Use: Never Used Second Hand Smoke Exposure: No Advance Directives: No Advance Directives Information Provided: Yes service: No Current occupational status: retired Cognitive needs: Yes (cane) Hearing needs: No Vision needs: Yes (Glasses) Physical Exam Vital Signs: Vital Signs: Last Vital Signs Temp 97.9 F 04/23/23 19:54 Pulse 61 04/23/23 20:15 Resp 14 04/23/23 20:15 BP 130/66 04/23/23 19:54 Pulse Ox 93 04/23/23 19:54 O2 Del Method Room Air 04/23/23 19:54 BMI result Body Mass Index 35.0 Course Course Course Narrative: This is an RME: Additional HPI, ROS, PE not included below will be deferred to primary provider. Patient is a 72-year-old male presents to the emergency department Complaining of diffuse anterior chest pain, shortness of breath and abdominal pain x3 days. Reports history of COPD, unrelieved by inhalers/ nebulizer at home. States he completed azithromycin as prescribed by PCP as yesterday but not feeling better, he feels as though he needs prednisone Plan: Serum labs, EKG, chest x-ray, DuoNeb, Solu-Medrol Medications Administered Discontinued Medications Generic Name Dose Route Start Last Admin Trade Name Freq PRN Reason Stop Dose Admin Albuterol Sulfate 7.5 mg/ 0 mg 04/23/23 19:58 04/23/23 20:12 Albuterol/Ipratropium 3 ml INHALE 04/23/23 19:59 10 each ONCE ONE Administration Magnesium Sulfate 2 gm in 50 mls @ 100 mls/hr 04/23/23 20:18 04/23/23 21:19 Magnesium Sulfate/H2o IV 04/23/23 20:47 Infused ONCE ONE Infusion Methylprednisolone Sodium Succinate 125 mg 04/23/23 20:18 04/23/23 20:39 Methylprednisolone Sod Succ 125 Mg/2 Ml Vial IVPUSH 04/23/23 20:19 125 mg ONCE ONE Administration Medical Decision Making Lab Data 04/23/23 20:25 04/23/23 20:25 Labs: Lab Results 04/23/23 04/23/23 04/23/23 Range/Units 20:25 20:25 20:25 WBC 9.0 (4.8-10.8) X10*3/uL RBC 5.02 (4.60-5.80) X10*6/uL Hgb 11.5 L (14.0-18.0) g/dl Hct 37.2 L (42.0-52.0) % MCV 74.1 L (80.0-98.0) fL MCH 22.9 L (27.0-33.0) pg MCHC 30.9 L (31.0-36.0) g/dl RDW 17.1 H (11.0-16.0) % Plt Count 387 (160-400) X10*3/uL MPV 10.7 (9.4-12.4) fL Immature Gran % (Auto) 0.4 (0.0-0.4) % Neut % (Auto) 55.6 (45-73) % Lymph % (Auto) 30.3 (20-40) % [place] % (Auto) 9.2 (2-11) % Eos % (Auto) 3.9 (0-4) % Baso % (Auto) 0.6 (0-2) % Lymph # (Auto) 2.7 (1.2-4.9) X10*3/uL [place] # (Auto) 0.8 (0.1-1.2) X10*3/uL Eos # (Auto) 0.4 (0.0-0.4) X10*3/uL Baso # (Auto) 0.1 (0.0-0.2) X10*3/uL Abs Immat Gran (auto) 0.04 H (0.00-0.03) X10*3/uL Absolute Neuts (auto) 5.0 (2.0-8.3) x10*3/uL Absolute Nucleated RBC 0.000 (0.0-0.012) X10*3/uL Nucleated RBC % (auto) 0.0 (0.0-0.2) /100WBC Sodium 143 (135-145) mmol/L Potassium 3.3 (3.3-5.1) mmol/L Chloride 105 (96-108) mmol/L Carbon Dioxide 27 (22-29) mmol/L Anion Gap 14 (12-20) BUN 51 H (9-16) mg/dL Creatinine 1.11 (0.5-1.4) mg/dL Estim Creat Clear Calc 70.4 Estimated GFR > 60 Random Glucose 138 H (60-115) mg/dL Calcium 10.1 (8.4-10.2) mg/dL Magnesium 1.6 (1.6-2.6) mg/dL Total Bilirubin 0.3 (0.0-1.0) mg/dL AST 23 (5-37) U/L ALT 16 (0-40) U/L Alkaline Phosphatase 77 (39-117) U/L Troponin I High Sens 5.8 (<3.5-35.0) ng/L Total Protein 6.9 (6.5-8.0) g/dL Albumin 3.8 (3.5-5.0) g/dL COVID-19 (PILAR) (Negative) COVID-19 Clin Com 04/23/23 Range/Units 20:25 WBC (4.8-10.8) X10*3/uL RBC (4.60-5.80) X10*6/uL Hgb (14.0-18.0) g/dl Hct (42.0-52.0) % MCV (80.0-98.0) fL MCH (27.0-33.0) pg MCHC (31.0-36.0) g/dl RDW (11.0-16.0) % Plt Count (160-400) X10*3/uL MPV (9.4-12.4) fL Immature Gran % (Auto) (0.0-0.4) % Neut % (Auto) (45-73) % Lymph % (Auto) (20-40) % [place] % (Auto) (2-11) % Eos % (Auto) (0-4) % Baso % (Auto) (0-2) % Lymph # (Auto) (1.2-4.9) X10*3/uL [place] # (Auto) (0.1-1.2) X10*3/uL Eos # (Auto) (0.0-0.4) X10*3/uL Baso # (Auto) (0.0-0.2) X10*3/uL Abs Immat Gran (auto) (0.00-0.03) X10*3/uL Absolute Neuts (auto) (2.0-8.3) x10*3/uL Absolute Nucleated RBC (0.0-0.012) X10*3/uL Nucleated RBC % (auto) (0.0-0.2) /100WBC Sodium (135-145) mmol/L Potassium (3.3-5.1) mmol/L Chloride (96-108) mmol/L Carbon Dioxide (22-29) mmol/L Anion Gap (12-20) BUN (9-16) mg/dL Creatinine (0.5-1.4) mg/dL Estim Creat Clear Calc Estimated GFR Random Glucose (60-115) mg/dL Calcium (8.4-10.2) mg/dL Magnesium (1.6-2.6) mg/dL Total Bilirubin (0.0-1.0) mg/dL AST (5-37) U/L ALT (0-40) U/L Alkaline Phosphatase (39-117) U/L Troponin I High Sens (<3.5-35.0) ng/L Total Protein (6.5-8.0) g/dL Albumin (3.5-5.0) g/dL COVID-19 (PILAR) Negative (Negative) COVID-19 Clin Com See Note Discharge Plan Discharge Prescriptions: No Action (DME) insulin syringe,safetyneedle 0.3 mL 29 x 1/2 syringe See Rx Instructions .Route Qty: 100 0RF Rx Instructions: As directed Narcan 4 mg/actuation spray,non-aerosol 4 mg intranasal Q2M PRN (Reason: opioid overdose) Qty: 2 0RF Rx Instructions: spray 1 dose into ONE nostril; alternate nostrils w each dose until help arrives (DME) lancets [OneTouch Delica Plus Lancet] 33 gauge misc See Rx Instructions topical .MEDSUPPLY Qty: 100 1RF Rx Instructions: As directed (DME) blood-glucose meter [FreeStyle Lite Meter] Kit See Rx Instructions .Route Qty: 1 0RF Rx Instructions: Test 3 times Daily (DME) Comfort EZ Pen Mobile 32 gauge x 5/16 needle See Rx Instructions .Route Qty: 100 0RF Rx Instructions: Use 3 times daily with insulin (DME) FreeStyle Lite Strips Strip See Rx Instructions .Route Qty: 100 0RF Rx Instructions: Test 3 times Daily albuterol sulfate 90 mcg/actuation HFA aerosol inhaler 2 puff inhalation Q4-6H PRN (Reason: for wheezing) Qty: 1 2RF pantoprazole 20 mg tablet,delayed release (DR/EC) 20 mg PO DAILY Qty: 90 1RF metoprolol succinate 50 mg tablet extended release 24 hr 50 mg PO DAILY Qty: 90 1RF pravastatin 20 mg tablet 20 mg PO DAILY Qty: 90 1RF chlorthalidone 25 mg tablet 25 mg PO QAM Qty: 90 1RF venlafaxine 75 mg tablet 75 mg PO .COMPLEX Qty: 270 1RF Rx Instructions: 75 mg PO 2 tabs in the morning, one tab at night.; insulin lispro [Humalog KwikPen Insulin] 100 unit/mL insulin pen 15 unit subcut TID 30 Days Qty: 15 1RF trazodone 100 mg tablet 100 mg PO BEDTIME PRN (Reason: sleep) 90 Days Qty: 90 1RF insulin glargine [Lantus Solostar U-100 Insulin] 100 unit/mL (3 mL) insulin pen 30 unit subcut QPM 30 Days Qty: 15 1RF tizanidine 2 mg tablet 2 mg PO Q8H PRN (Reason: muscle spasticity) Qty: 45 0RF timolol maleate 0.5 % drops 1 drp ophthalmic (eye) BID latanoprost 0.005 % drops 1 drp ophthalmic (eye) QPM Advair HFA 115-21 mcg/actuation HFA aerosol inhaler 2 puff inhalation BID 30 Days Qty: 12 3RF hydroxyzine pamoate 25 mg capsule 25 mg PO DAILY PRN (Reason: allergies) oxycodone 15 mg tablet 15 mg PO TID PRN (Reason: pain, severe) 30 Days Qty: 90 0RF Rx Instructions: Partial Fill upon patient request. Tapering dose down due to suspension in opioid program. tizanidine 2 mg tablet 2 mg PO TID MDD 3 pills a day PRN (Reason: opioid withdrawal) 30 Days Qty: 90 6RF hydroxyzine HCl 25 mg tablet 25 mg PO BID PRN (Reason: Opioid withdrawal) 30 Days Qty: 60 6RF
[2023-04-23 20:15] VITALS: PULSE 61; RESP 14; O2SAT 98
--- NOTE | 2023-04-23 20:15 | ED.SOB ---
HPI - SOB/Dyspnea General Chief Complaint: Dyspnea Stated Complaint: asthma,chest pain Time Seen by Provider: 04/23/23 20:12 Source: patient Mode of arrival: ambulatory Limitations: no limitations History of Present Illness HPI Narrative: Patient With history of COPD sleep apnea used to be on home oxygen not any more use CPAP in the night comes in for 3- 4 days of increased cough and wheezing patient does get similar attacks to 3 severe PCP started on Zithromax which she finished today Related Data Home Medications Medication Instructions Recorded Confirmed latanoprost 0.005 % eye drops 1 drp ophthalmic (eye) QPM 11/17/21 03/31/23 timolol maleate 0.5 % eye drops 1 drp ophthalmic (eye) BID 11/17/21 03/31/23 hydroxyzine pamoate 25 mg capsule 25 mg PO DAILY PRN allergies 10/08/22 03/31/23 Previous Rx's Medication Instructions Recorded insulin syringe,safetyneedle 0.3 #100 ea 09/28/21 mL 29 gauge x 1/2 naloxone 4 mg/actuation nasal 4 mg intranasal Q2M PRN opioid 10/29/21 spray (Narcan) overdose #2 ea blood-glucose meter (FreeStyle #1 ea 02/09/22 Lite Meter kit) lancets 33 gauge (OneTouch Delica #100 ea 02/09/22 Plus Lancet) pen needle, diabetic 32 gauge x #100 ea 04/09/2203/15 (Comfort EZ Pen [place]) tizanidine 2 mg tablet 2 mg PO Q8H PRN muscle spasticity 05/07/22 #45 tabs fluticasone propionate 115 2 puff inhalation BID ASTHMA/COPD 06/15/22 mcg-salmeterol 21 mcg/actuation 30 days #12 grams HFA inhaler (Advair HFA) blood sugar diagnostic (FreeStyle #100 ea 09/13/22 Lite Strips) albuterol sulfate 90 mcg/actuation 2 puff inhalation Q4-6H PRN for 11/03/22 aerosol inhaler wheezing #1 ea chlorthalidone 25 mg tablet 25 mg PO QAM #90 tabs 11/13/22 metoprolol succinate 50 mg 50 mg PO DAILY #90 tabs 11/13/22 tablet,extended release 24 hr pantoprazole 20 mg tablet,delayed 20 mg PO DAILY #90 tabs 11/13/22 release pravastatin 20 mg tablet 20 mg PO DAILY #90 tabs 11/13/22 venlafaxine 75 mg tablet 75 mg PO .COMPLEX #270 tabs 11/20/22 insulin lispro 100 unit/mL 15 unit (0.15 mL) subcut TID 30 12/13/22 subcutaneous pen (Humalog KwikPen days #15 mL (U-100) Insulin) trazodone 100 mg tablet 100 mg PO BEDTIME PRN sleep 90 01/13/23 days #90 tabs insulin glargine 100 unit/mL (3 30 unit (0.3 mL) subcut QPM 30 03/17/23 mL) subcutaneous pen (Lantus days #15 mL Solostar U-100 Insulin) hydroxyzine HCl 25 mg tablet 25 mg PO BID PRN Opioid withdrawal 04/06/23 30 days #60 tabs oxycodone 15 mg tablet 15 mg PO TID PRN pain, severe 30 04/06/23 days #90 tabs tizanidine 2 mg tablet 2 mg PO TID PRN opioid withdrawal 04/06/23 30 days #90 tabs albuterol sulfate 2.5 mg/3 mL 2.5 mg (3 mL) inhalation Q4-6H PRN 04/23/23 (0.083 %) solution for nebulization shortness of breath or wheezing #90 mL benzonatate 200 mg capsule 200 mg PO TID PRN cough #30 caps 04/23/23 prednisone 20 mg tablet 40 mg PO DAILY #10 tabs 04/23/23 Allergies Allergy/AdvReac Type Severity Reaction Status Date / Time hydrocortisone Allergy Severe SWELLING Verified 03/03/23 15:44 [HYDROCORTISONE] NSAIDS (Non-Steroidal Allergy Severe BLEEDING Verified 03/03/23 15:44 Anti-Inflamma [NSAIDS (NON-STEROIDAL ANTI-INFLAMMA] aspirin Allergy Unknown bleeding Verified 03/03/23 15:44 doxycycline AdvReac Severe in-effectiv Verified 03/03/23 15:44 e Review of Systems Review of Systems: Yes all other systems are reviewed and are negative PMFSH Past Medical History Medical History Allergic rhinitis Allergic rhinitis Arthritis Arthritis of both knees Asthma Asthma Back pain Benign prostatic hyperplasia Bilateral primary osteoarthritis of knee Chronic pain syndrome Class 2 severe obesity with body mass index (BMI) of 35 to 39.9 with serious comorbidity COPD (chronic obstructive pulmonary disease) COPD exacerbation Crohn disease Depression Diabetes mellitus type 2, uncontrolled HTN (hypertension) Lumbar radiculopathy Lumbar spondylosis VIDA on CPAP Osteoarthritis of right knee Sleep apnea Tendon tear Surgical History H/O colonoscopy Family History Family History Father No problems noted. Mother No problems noted. Social History Social History Housing: House Alcohol intake: never Patient Tobacco Use Status: Former Tobacco user e-Cigarette/Vaping Use: Never Used Second Hand Smoke Exposure: No Advance Directives: No Advance Directives Information Provided: Yes service: No Current occupational status: retired Cognitive needs: Yes (cane) Hearing needs: No Vision needs: Yes (Glasses) Physical Exam Vital Signs: Vital Signs: Last Vital Signs Temp 97.9 F 04/23/23 22:39 Pulse 65 04/23/23 22:39 Resp 20 04/23/23 22:39 BP 141/71 H 04/23/23 22:39 Pulse Ox 96 04/23/23 22:39 O2 Del Method Nasal Cannula 04/23/23 22:39 O2 Flow Rate 2 04/23/23 22:39 BMI result Body Mass Index 35.0 Appearance: Alert. Oriented X3. No acute distress. ENT: Pharynx normal. Oral Mucosa moist Neck: Normal inspection. Neck supple. CVS: Normal heart rate and rhythm. Pulses normal. Respiratory: No respiratory distress. Equal air entry bilateral, bilateral wheezing occasional crackles at bases Abdomen: Soft and nontender. Bowel sounds are present, Skin: Skin warm and dry. Normal skin color. Normal skin turgor. Extremities: No lower extremity edema. No calf tenderness Neuro: Oriented X 3. No motor deficit. Medications Administered Discontinued Medications Generic Name Dose Route Start Last Admin Trade Name Freq PRN Reason Stop Dose Admin Albuterol Sulfate 7.5 mg/ 0 mg 04/23/23 19:58 04/23/23 20:12 Albuterol/Ipratropium 3 ml INHALE 04/23/23 19:59 10 each ONCE ONE Administration Magnesium Sulfate 2 gm in 50 mls @ 100 mls/hr 04/23/23 20:18 04/23/23 21:19 Magnesium Sulfate/H2o IV 04/23/23 20:47 Infused ONCE ONE Infusion Methylprednisolone Sodium Succinate 125 mg 04/23/23 20:18 04/23/23 20:39 Methylprednisolone Sod Succ 125 Mg/2 Ml Vial IVPUSH 04/23/23 20:19 125 mg ONCE ONE Administration Medical Decision Making Medical Decision Making [facility] Narrative: Patient intake severely increased shortness of breath improved after continue his nebulizing treatment for 1 hour along with IV steroids were given at this time patient feeling much better saturating anti to 90-93% on room air will discharge patient home Lab Data [facility] Lab Attestation statement: I reviewed the patient's lab results. 04/23/23 20:25 04/23/23 20:25 Labs: Lab Results 04/23/23 04/23/23 04/23/23 Range/Units 20:25 20:25 20:25 WBC 9.0 (4.8-10.8) X10*3/uL RBC 5.02 (4.60-5.80) X10*6/uL Hgb 11.5 L (14.0-18.0) g/dl Hct 37.2 L (42.0-52.0) % MCV 74.1 L (80.0-98.0) fL MCH 22.9 L (27.0-33.0) pg MCHC 30.9 L (31.0-36.0) g/dl RDW 17.1 H (11.0-16.0) % Plt Count 387 (160-400) X10*3/uL MPV 10.7 (9.4-12.4) fL Immature Gran % (Auto) 0.4 (0.0-0.4) % Neut % (Auto) 55.6 (45-73) % Lymph % (Auto) 30.3 (20-40) % [place] % (Auto) 9.2 (2-11) % Eos % (Auto) 3.9 (0-4) % Baso % (Auto) 0.6 (0-2) % Lymph # (Auto) 2.7 (1.2-4.9) X10*3/uL [place] # (Auto) 0.8 (0.1-1.2) X10*3/uL Eos # (Auto) 0.4 (0.0-0.4) X10*3/uL Baso # (Auto) 0.1 (0.0-0.2) X10*3/uL Abs Immat Gran (auto) 0.04 H (0.00-0.03) X10*3/uL Absolute Neuts (auto) 5.0 (2.0-8.3) x10*3/uL Absolute Nucleated RBC 0.000 (0.0-0.012) X10*3/uL Nucleated RBC % (auto) 0.0 (0.0-0.2) /100WBC Sodium 143 (135-145) mmol/L Potassium 3.3 (3.3-5.1) mmol/L Chloride 105 (96-108) mmol/L Carbon Dioxide 27 (22-29) mmol/L Anion Gap 14 (12-20) BUN 51 H (9-16) mg/dL Creatinine 1.11 (0.5-1.4) mg/dL Estim Creat Clear Calc 70.4 Estimated GFR > 60 Random Glucose 138 H (60-115) mg/dL Calcium 10.1 (8.4-10.2) mg/dL Magnesium 1.6 (1.6-2.6) mg/dL Total Bilirubin 0.3 (0.0-1.0) mg/dL AST 23 (5-37) U/L ALT 16 (0-40) U/L Alkaline Phosphatase 77 (39-117) U/L Troponin I High Sens 5.8 (<3.5-35.0) ng/L Total Protein 6.9 (6.5-8.0) g/dL Albumin 3.8 (3.5-5.0) g/dL COVID-19 (PILAR) (Negative) COVID-19 Clin Com 04/23/23 Range/Units 20:25 WBC (4.8-10.8) X10*3/uL RBC (4.60-5.80) X10*6/uL Hgb (14.0-18.0) g/dl Hct (42.0-52.0) % MCV (80.0-98.0) fL MCH (27.0-33.0) pg MCHC (31.0-36.0) g/dl RDW (11.0-16.0) % Plt Count (160-400) X10*3/uL MPV (9.4-12.4) fL Immature Gran % (Auto) (0.0-0.4) % Neut % (Auto) (45-73) % Lymph % (Auto) (20-40) % [place] % (Auto) (2-11) % Eos % (Auto) (0-4) % Baso % (Auto) (0-2) % Lymph # (Auto) (1.2-4.9) X10*3/uL [place] # (Auto) (0.1-1.2) X10*3/uL Eos # (Auto) (0.0-0.4) X10*3/uL Baso # (Auto) (0.0-0.2) X10*3/uL Abs Immat Gran (auto) (0.00-0.03) X10*3/uL Absolute Neuts (auto) (2.0-8.3) x10*3/uL Absolute Nucleated RBC (0.0-0.012) X10*3/uL Nucleated RBC % (auto) (0.0-0.2) /100WBC Sodium (135-145) mmol/L Potassium (3.3-5.1) mmol/L Chloride (96-108) mmol/L Carbon Dioxide (22-29) mmol/L Anion Gap (12-20) BUN (9-16) mg/dL Creatinine (0.5-1.4) mg/dL Estim Creat Clear Calc Estimated GFR Random Glucose (60-115) mg/dL Calcium (8.4-10.2) mg/dL Magnesium (1.6-2.6) mg/dL Total Bilirubin (0.0-1.0) mg/dL AST (5-37) U/L ALT (0-40) U/L Alkaline Phosphatase (39-117) U/L Troponin I High Sens (<3.5-35.0) ng/L Total Protein (6.5-8.0) g/dL Albumin (3.5-5.0) g/dL COVID-19 (PILAR) Negative (Negative) COVID-19 Clin Com See Note Discharge Plan Discharge Clinical Impression: Acute exacerbation of chronic obstructive pulmonary disease Patient Disposition: Home, Self-Care Instructions: COPD (Chronic Obstructive Pulmonary Disease) (ED) Additional Instructions: Continue nebulizing treatment every 4-6 hours as needed Prednisone as prescribed Follow-up with your licensing court magistrate Prescriptions: New albuterol sulfate 2.5 mg /3 mL (0.083 %) solution for nebulization 2.5 mg inhalation Q4-6H PRN (Reason: shortness of breath or wheezing) Qty: 90 0RF prednisone 20 mg tablet 40 mg PO DAILY Qty: 10 0RF benzonatate 200 mg capsule 200 mg PO TID PRN (Reason: cough) Qty: 30 0RF No Action (DME) insulin syringe,safetyneedle 0.3 mL 29 x 1/2 syringe See Rx Instructions .Route Qty: 100 0RF Rx Instructions: As directed Narcan 4 mg/actuation spray,non-aerosol 4 mg intranasal Q2M PRN (Reason: opioid overdose) Qty: 2 0RF Rx Instructions: spray 1 dose into ONE nostril; alternate nostrils w each dose until help arrives (DME) lancets [OneTouch Delica Plus Lancet] 33 gauge misc See Rx Instructions topical .MEDSUPPLY Qty: 100 1RF Rx Instructions: As directed (DME) blood-glucose meter [FreeStyle Lite Meter] Kit See Rx Instructions .Route Qty: 1 0RF Rx Instructions: Test 3 times Daily (DME) Comfort EZ Pen [place] 32 gauge x 5/16 needle See Rx Instructions .Route Qty: 100 0RF Rx Instructions: Use 3 times daily with insulin (DME) FreeStyle Lite Strips Strip See Rx Instructions .Route Qty: 100 0RF Rx Instructions: Test 3 times Daily albuterol sulfate 90 mcg/actuation HFA aerosol inhaler 2 puff inhalation Q4-6H PRN (Reason: for wheezing) Qty: 1 2RF pantoprazole 20 mg tablet,delayed release (DR/EC) 20 mg PO DAILY Qty: 90 1RF metoprolol succinate 50 mg tablet extended release 24 hr 50 mg PO DAILY Qty: 90 1RF pravastatin 20 mg tablet 20 mg PO DAILY Qty: 90 1RF chlorthalidone 25 mg tablet 25 mg PO QAM Qty: 90 1RF venlafaxine 75 mg tablet 75 mg PO .COMPLEX Qty: 270 1RF Rx Instructions: 75 mg PO 2 tabs in the morning, one tab at night.; insulin lispro [Humalog KwikPen Insulin] 100 unit/mL insulin pen 15 unit subcut TID 30 Days Qty: 15 1RF trazodone 100 mg tablet 100 mg PO BEDTIME PRN (Reason: sleep) 90 Days Qty: 90 1RF insulin glargine [Lantus Solostar U-100 Insulin] 100 unit/mL (3 mL) insulin pen 30 unit subcut QPM 30 Days Qty: 15 1RF tizanidine 2 mg tablet 2 mg PO Q8H PRN (Reason: muscle spasticity) Qty: 45 0RF timolol maleate 0.5 % drops 1 drp ophthalmic (eye) BID latanoprost 0.005 % drops 1 drp ophthalmic (eye) QPM Advair HFA 115-21 mcg/actuation HFA aerosol inhaler 2 puff inhalation BID 30 Days Qty: 12 3RF hydroxyzine pamoate 25 mg capsule 25 mg PO DAILY PRN (Reason: allergies) oxycodone 15 mg tablet 15 mg PO TID PRN (Reason: pain, severe) 30 Days Qty: 90 0RF Rx Instructions: Partial Fill upon patient request. Tapering dose down due to suspension in opioid program. tizanidine 2 mg tablet 2 mg PO TID MDD 3 pills a day PRN (Reason: opioid withdrawal) 30 Days Qty: 90 6RF hydroxyzine HCl 25 mg tablet 25 mg PO BID PRN (Reason: Opioid withdrawal) 30 Days Qty: 60 6RF
--- NOTE | 2023-04-23 20:17 | PC.RT ---
pt has VIDA with Cpap at home. Unknow settings. HAd oxygen but was dc'd per Dr. Rojas
[2023-04-23 20:30] LABS: MANUAL DIFF FLAG NO
--- NOTE | 2023-04-23 20:31 | PC.NURSE ---
pt arrived via triage for sob, 88% on room air, resp therapy in to assess pt, spo2 96-98%
[2023-04-23 20:35] LABS: Basophils Absolute Auto 0.1 X10*3/uL (0.0-0.2); Basophils Percent Auto 0.6 % (0-2); Eosinophils Absolute Auto 0.4 X10*3/uL (0.0-0.4); Eosinophils Percent Auto 3.9 % (0-4); Hematocrit 37.2 % (42.0-52.0); Hemoglobin 11.5 g/dl (14.0-18.0); Imm Gran Abs Auto 0.04 X10*3/uL (0.00-0.03); Imm Gran Pct Auto 0.4 % (0.0-0.4); Lymphocytes Absolute Auto 2.7 X10*3/uL (1.2-4.9); Lymphocytes Percent Auto 30.3 % (20-40); Mean Corpuscular HGB Conc 30.9 g/dl (31.0-36.0); Mean Corpuscular Hemoglobin 22.9 pg (27.0-33.0); Mean Corpuscular Volume 74.1 fL (80.0-98.0); Mean Platelet Volume 10.7 fL (9.4-12.4); Monocytes Absolute Auto 0.8 X10*3/uL (0.1-1.2); Monocytes Percent Auto 9.2 % (2-11); Neutrophils Percent Auto 55.6 % (45-73); Platelet Count 387 X10*3/uL (160-400); Red Blood Count 5.02 X10*6/uL (4.60-5.80); Red Cell Distribution Width 17.1 % (11.0-16.0)
[2023-04-23] MEDS: Magnesium Sulfate/H2O 2 GM/50 ML PIGGYBACK IV (20:39)
[2023-04-23] MEDS: methylPREDNISolone Sod Succ 125 MG/2 ML VIAL IVPUSH (20:39)
--- NOTE | 2023-04-23 20:44 | PC.NURSE ---
pt assessed, medicated with methypredinsone and mag, tolerating well
[2023-04-23 20:51] LABS: Alanine Aminotransferase 16 U/L (0-40); Albumin Level 3.8 g/dL (3.5-5.0); Alkaline Phosphatase 77 U/L (39-117); Anion Gap 14 (12-20); Aspartate Amino Transferase 23 U/L (5-37); Bilirubin Total 0.3 mg/dL (0.0-1.0); Blood Urea Nitrogen 51 mg/dL (9-16); Calcium 10.1 mg/dL (8.4-10.2); Carbon Dioxide 27 mmol/L (22-29); Chloride 105 mmol/L (96-108); Creatinine Clr Calc Pharmacy 70.4; Estimated Glomerular Filt Rate > 60; Glucose Random 138 mg/dL (60-115); Magnesium 1.6 mg/dL (1.6-2.6); Potassium 3.3 mmol/L (3.3-5.1); Sodium 143 mmol/L (135-145); Total Protein 6.9 g/dL (6.5-8.0)
[2023-04-23 20:58] LABS: Troponin-I High Sensitivity 5.8 ng/L (<3.5-35.0)
[2023-04-23 21:02] LABS: COVID-19 Test Negative (Negative); IDNOW Serial# 08D9AD1C
[2023-04-23 22:39] VITALS: BP 141/71; PULSE 65; RESP 20; TEMP 36.6; O2SAT 96
== END 2023-04-23 23:15 | disposition home or self-care (01) ==
PROVIDERS: Nurse Practitioner Family; Emergency Provider Internal Medicine
DX: J44.1 Chronic obstructive pulmonary disease with (acute) exacerbation (principal); Z20.822 Contact with and (suspected) exposure to COVID-19; E11.9 Type 2 diabetes mellitus without complications; I10 Essential (primary) hypertension; G47.33 Obstructive sleep apnea (adult) (pediatric); Z99.89 Dependence on other enabling machines and devices; Z87.891 Personal history of nicotine dependence; Z79.891 Long term (current) use of opiate analgesic; Z79.4 Long term (current) use of insulin; Z79.899 Other long term (current) drug therapy
CPT/HCPCS: 71045; 80053; 83735; 84484; 85025; 87635; 93005; 94640; 96365; 96375; 99284; 99285; J2930; J3475

== ENCOUNTER 2023-05-16 20:06 | Emergency (ER) | payer MEDICARE, SELFPAY ==
[2023-05-16 20:11] VITALS: PULSE 90; O2SAT 96; BMI 41.9
[2023-05-16] MEDS: OLANZapine 10 MG VIAL 5 MG IM (20:35)
[2023-05-16 21:10] VITALS: BP 142/67; PULSE 92; RESP 24; O2SAT 93
[2023-05-16 21:34] LABS: Glucose, Whole Blood 111 mg/dL (60-115)
--- NOTE | 2023-05-16 21:38 | ED.GENADULT ---
HPI - General Adult General Chief complaint: ETOH/Substance Use Stated complaint: ams/ drug use Time Seen by Provider: 05/16/23 20:14 Source: patient, family () and EMS Mode of arrival: EMS History of Present Illness HPI narrative: 72-year-old male who is on chronic oxycodone for pain, also has history of COPD is brought in by EMS after they were called by the who states that patient took unknown amount of Percocet and Narcan by himself. EMS states that patient was rolling around on the ground screaming that is skin was burning and on fire. Patient was noted to be spitting on arrival and swearing, patient is unable to provide history at this time, reports that she feels that may be a medication interact. EMS had to administer 2 mg of Versed due to patient's combativeness. Patient arrived of physical restraints but those have since been removed. Related Data Home Medications Medication Instructions Recorded Confirmed latanoprost 0.005 % eye drops 1 drp ophthalmic (eye) QPM 11/17/21 03/31/23 timolol maleate 0.5 % eye drops 1 drp ophthalmic (eye) BID 11/17/21 03/31/23 hydroxyzine pamoate 25 mg capsule 25 mg PO DAILY PRN allergies 10/08/22 03/31/23 Previous Rx's Medication Instructions Recorded insulin syringe,safetyneedle 0.3 #100 ea 09/28/21 mL 29 gauge x 1/2 naloxone 4 mg/actuation nasal 4 mg intranasal Q2M PRN opioid 10/29/21 spray (Narcan) overdose #2 ea blood-glucose meter (FreeStyle #1 ea 02/09/22 Lite Meter kit) lancets 33 gauge (OneTouch Delica #100 ea 02/09/22 Plus Lancet) pen needle, diabetic 32 gauge x #100 ea 04/09/22 5/16 (Comfort EZ Pen [facility]) tizanidine 2 mg tablet 2 mg PO Q8H PRN muscle spasticity 05/07/22 #45 tabs fluticasone propionate 115 2 puff inhalation BID ASTHMA/COPD 06/15/22 mcg-salmeterol 21 mcg/actuation 30 days #12 grams HFA inhaler (Advair HFA) blood sugar diagnostic (FreeStyle #100 ea 09/13/22 Lite Strips) albuterol sulfate 90 mcg/actuation 2 puff inhalation Q4-6H PRN for 11/03/22 aerosol inhaler wheezing #1 ea chlorthalidone 25 mg tablet 25 mg PO QAM #90 tabs 11/13/22 metoprolol succinate 50 mg 50 mg PO DAILY #90 tabs 11/13/22 tablet,extended release 24 hr pantoprazole 20 mg tablet,delayed 20 mg PO DAILY #90 tabs 11/13/22 release pravastatin 20 mg tablet 20 mg PO DAILY #90 tabs 11/13/22 venlafaxine 75 mg tablet 75 mg PO .COMPLEX #270 tabs 11/20/22 insulin lispro 100 unit/mL 15 unit (0.15 mL) subcut TID 30 12/13/22 subcutaneous pen (Humalog KwikPen days #15 mL (U-100) Insulin) trazodone 100 mg tablet 100 mg PO BEDTIME PRN sleep 90 01/13/23 days #90 tabs insulin glargine 100 unit/mL (3 30 unit (0.3 mL) subcut QPM 30 03/17/23 mL) subcutaneous pen (Lantus days #15 mL Solostar U-100 Insulin) hydroxyzine HCl 25 mg tablet 25 mg PO BID PRN Opioid withdrawal 04/06/23 30 days #60 tabs oxycodone 15 mg tablet 15 mg PO TID PRN pain, severe 30 04/06/23 days #90 tabs tizanidine 2 mg tablet 2 mg PO TID PRN opioid withdrawal 04/06/23 30 days #90 tabs albuterol sulfate 2.5 mg/3 mL 2.5 mg (3 mL) inhalation Q4-6H PRN 04/23/23 (0.083 %) solution for nebulization shortness of breath or wheezing #90 mL benzonatate 200 mg capsule 200 mg PO TID PRN cough #30 caps 04/23/23 prednisone 20 mg tablet 40 mg PO DAILY #10 tabs 04/23/23 Allergies Allergy/AdvReac Type Severity Reaction Status Date / Time hydrocortisone Allergy Severe SWELLING Verified 03/03/23 15:44 [HYDROCORTISONE] NSAIDS (Non-Steroidal Allergy Severe BLEEDING Verified 03/03/23 15:44 Anti-Inflamma [NSAIDS (NON-STEROIDAL ANTI-INFLAMMA] aspirin Allergy Unknown bleeding Verified 03/03/23 15:44 doxycycline AdvReac Severe in-effectiv Verified 03/03/23 15:44 e Review of Systems Review of Systems: Yes Unobtainable due to mental condition PMFSH Past Medical History Source: nursing notes reviewed Medical History Allergic rhinitis Allergic rhinitis Arthritis Arthritis of both knees Asthma Asthma Back pain Benign prostatic hyperplasia Bilateral primary osteoarthritis of knee Chronic pain syndrome Class 2 severe obesity with body mass index (BMI) of 35 to 39.9 with serious comorbidity COPD (chronic obstructive pulmonary disease) COPD exacerbation Crohn disease Depression Diabetes mellitus type 2, uncontrolled HTN (hypertension) Lumbar radiculopathy Lumbar spondylosis VIDA on CPAP Osteoarthritis of right knee Sleep apnea Tendon tear Surgical History H/O colonoscopy Family History Family History Father No problems noted. Mother No problems noted. Social History Social History Housing: House Alcohol intake: never Patient Tobacco Use Status: Former Tobacco user e-Cigarette/Vaping Use: Never Used Second Hand Smoke Exposure: No Use of substances other than those prescribed or required for medical reasons: No Advance Directives: No Advance Directives Information Provided: Yes service: No Current occupational status: retired Cognitive needs: Yes (cane) Hearing needs: No Vision needs: Yes (Glasses) Physical Exam ED Vital Signs: Vital Signs - 24 hr 05/16/23 21:10 05/17/23 00:04 Pulse Rate 92 91 Respiratory Rate 24 H 16 Blood Pressure 142/67 H 137/70 Pulse Oximetry 93 95 Oxygen Delivery Method Room Air Room Air BMI result Body Mass Index 41.9 VITAL SIGNS: Reviewed. GENERAL: Elevated BMI, Well developed, well nourished, in moderate distress. HEAD: Normocephalic/atraumatic EYES: PERRLA, EOMI EARS: Ext canals without abnormality, TMs non-bulging and non-erythematous NOSE: Nares patent bilateral OROPHARYNX: no oral lesions noted, posterior pharynx clear NECK: Supple, no adenopathy LUNGS: Normal breath sounds. No adventitious sounds or accessory muscle use. SpO2<93> CARDIOVASCULAR: Regular rate and rhythm without noted murmurs ABDOMEN: Soft, non-tender, non-distended with bowel sounds. MUSCULOSKELETAL: No tenderness, deformities, or effusions noted on gross inspection. EXTREMITIES: No cyanosis, clubbing or edema. SKIN: Inspection of the skin reveals no rashes NEUROLOGIC: Alert and oriented x 3. Strength and sensation to light touch were grossly intact x 4. PSYCH: Behaving erratically. Medications Administered Discontinued Medications Generic Name Dose Route Start Last Admin Trade Name Sudhakar PRN Reason Stop Dose Admin Diphenhydramine HCl 50 mg 05/16/23 20:12 05/16/23 22:16 Diphenhydramine Hcl 50 Mg/Ml Vial IM 05/16/23 20:13 50 mg ONCE ONE Administration Lorazepam 2 mg 05/16/23 20:12 05/16/23 22:16 Lorazepam 2 Mg/Ml Vial IM 05/16/23 20:13 2 mg ONCE ONE Administration Olanzapine 5 mg 05/16/23 20:11 05/16/23 20:35 Olanzapine 10 Mg Vial IM 05/16/23 20:12 5 mg ONCE ONE Administration Medical Decision Making Medical Decision Making MDM Narrative: 72-year-old male with history and clinical presentation, DDX: Substance use, medication interaction, infection/electrolyte abnormality. Patient defecated which had to be cleaned up, he is spitting and rolling around in the gurney and unclear what the immediate issue is, I did review all previous documentation which shows UDS positive for opioids but patient is chronically on oxycodone, also positive for marijuana previously but otherwise no gross evidence of polysubstance use. I reviewed all investigations and hematologic indices are consistent with stress leukocytosis as patient is afebrile and has stable chronic microcytic anemia. VBG not significant for hypercapnia or acidosis. Chemistry indices are chronically stable without suggestion of YOVANY or liver abnormalities. Urinalysis appears to be consistent with a urinary tract infection which will be treated with a course of antibiotics but otherwise on re-evaluation patient is feeling much better and suspect that he may have thrown himself into withdrawal by taking the Narcan shortly after the oxycodone. Patient is mentating well, is calm and cooperative and is otherwise discharged home in stable condition. Differential Diagnosis Differential Diagnoses: The differential diagnosis associated with the presentation includes Please see the discussion above Admission/Observation Consideration of admission/observation: Escalation of care including admission/observation considered Please see the discussion above Lab Data MDM Lab Attestation statement: I reviewed the patient's lab results. Please see the discussion above 05/16/23 21:39 05/16/23 21:39 Labs: Lab Results 05/16/23 05/16/23 05/16/23 Range/Units 21:29 21:39 21:39 WBC 13.7 H (4.8-10.8) X10*3/uL RBC 5.99 H (4.60-5.80) X10*6/uL Hgb 13.7 L (14.0-18.0) g/dl Hct 44.1 (42.0-52.0) % MCV 73.6 L (80.0-98.0) fL MCH 22.9 L (27.0-33.0) pg MCHC 31.1 (31.0-36.0) g/dl RDW 18.5 H (11.0-16.0) % Plt Count 439 H (160-400) X10*3/uL MPV 10.1 (9.4-12.4) fL Immature Gran % (Auto) 1.4 H (0.0-0.4) % Neut % (Auto) 70.2 (45-73) % Lymph % (Auto) 17.6 L (20-40) % [place] % (Auto) 8.9 (2-11) % Eos % (Auto) 1.6 (0-4) % Baso % (Auto) 0.3 (0-2) % Lymph # (Auto) 2.4 (1.2-4.9) X10*3/uL [place] # (Auto) 1.2 (0.1-1.2) X10*3/uL Eos # (Auto) 0.2 (0.0-0.4) X10*3/uL Baso # (Auto) 0.0 (0.0-0.2) X10*3/uL Abs Immat Gran (auto) 0.19 H (0.00-0.03) X10*3/uL Absolute Neuts (auto) 9.6 H (2.0-8.3) x10*3/uL Absolute Nucleated RBC 0.000 (0.0-0.012) X10*3/uL Nucleated RBC % (auto) 0.0 (0.0-0.2) /100WBC VBG pH (7.32-7.43) VBG pCO2 mmHg VBG pO2 mmHg VBG HCO3 (22-26) mmol/L VBG O2 Saturation % VBG Base Excess mmol/L Sodium 141 (135-145) mmol/L Potassium 3.3 (3.3-5.1) mmol/L Chloride 104 (96-108) mmol/L Carbon Dioxide 24 (22-29) mmol/L Anion Gap 16 (12-20) BUN 31 H (9-16) mg/dL Creatinine 1.12 (0.5-1.4) mg/dL Estim Creat Clear Calc 67.3 Estimated GFR > 60 POC Glucose 111 (60-115) mg/dL Random Glucose 116 H (60-115) mg/dL Calcium 9.9 (8.4-10.2) mg/dL Total Bilirubin 0.4 (0.0-1.0) mg/dL AST 19 (5-37) U/L ALT 19 (0-40) U/L Alkaline Phosphatase 94 (39-117) U/L Total Protein 6.8 (6.5-8.0) g/dL Albumin 3.8 (3.5-5.0) g/dL Urine Opiates Screen (Not Detect) Urine Fentanyl Screen (Not Detect) Ur Barbiturates Screen (Not Detect) Ur Phencyclidine Scrn (Not Detect) Ur Amphetamines Screen (Not Detect) U Benzodiazepines Scrn (Not Detect) Urine Cocaine Screen (Not Detect) U Marijuana (THC) Screen (Not Detect) Ethyl Alcohol < 10 mg/dL 05/16/23 05/16/23 Range/Units 21:45 22:46 WBC (4.8-10.8) X10*3/uL RBC (4.60-5.80) X10*6/uL Hgb (14.0-18.0) g/dl Hct (42.0-52.0) % MCV (80.0-98.0) fL MCH (27.0-33.0) pg MCHC (31.0-36.0) g/dl RDW (11.0-16.0) % Plt Count (160-400) X10*3/uL MPV (9.4-12.4) fL Immature Gran % (Auto) (0.0-0.4) % Neut % (Auto) (45-73) % Lymph % (Auto) (20-40) % [place] % (Auto) (2-11) % Eos % (Auto) (0-4) % Baso % (Auto) (0-2) % Lymph # (Auto) (1.2-4.9) X10*3/uL [place] # (Auto) (0.1-1.2) X10*3/uL Eos # (Auto) (0.0-0.4) X10*3/uL Baso # (Auto) (0.0-0.2) X10*3/uL Abs Immat Gran (auto) (0.00-0.03) X10*3/uL Absolute Neuts (auto) (2.0-8.3) x10*3/uL Absolute Nucleated RBC (0.0-0.012) X10*3/uL Nucleated RBC % (auto) (0.0-0.2) /100WBC VBG pH 7.56 H (7.32-7.43) VBG pCO2 30 mmHg VBG pO2 66 mmHg VBG HCO3 27 H (22-26) mmol/L VBG O2 Saturation 95.0 % VBG Base Excess 5.9 mmol/L Sodium (135-145) mmol/L Potassium (3.3-5.1) mmol/L Chloride (96-108) mmol/L Carbon Dioxide (22-29) mmol/L Anion Gap (12-20) BUN (9-16) mg/dL Creatinine (0.5-1.4) mg/dL Estim Creat Clear Calc Estimated GFR POC Glucose (60-115) mg/dL Random Glucose (60-115) mg/dL Calcium (8.4-10.2) mg/dL Total Bilirubin (0.0-1.0) mg/dL AST (5-37) U/L ALT (0-40) U/L Alkaline Phosphatase (39-117) U/L Total Protein (6.5-8.0) g/dL Albumin (3.5-5.0) g/dL Urine Opiates Screen POSITIVE H (Not Detect) Urine Fentanyl Screen POSITIVE H (Not Detect) Ur Barbiturates Screen Not Detected (Not Detect) Ur Phencyclidine Scrn Not Detected (Not Detect) Ur Amphetamines Screen Not Detected (Not Detect) U Benzodiazepines Scrn POSITIVE H (Not Detect) Urine Cocaine Screen Not Detected (Not Detect) U Marijuana (THC) Screen Not Detected (Not Detect) Ethyl Alcohol mg/dL External Record Review External record reviewed: Outpatient record and Prior outpatient labs Chronic Conditions Patient?s care impacted by: Diabetes Critical Care Time Critical Care Time Critical Care Time: Yes Total Critical Care Time: 30 Attestation: I personally attest to this time spent taking care of the patient. Discharge Plan Discharge Clinical Impression: Polysubstance use disorder, Acute UTI, AMS (altered mental status) Patient Disposition: Home, Self-Care Instructions: Urinary Tract Infection in Men (DC), Polysubstance Abuse (ED) Additional Instructions: 1. Reanudar todos los medicamentos caseros seg?n lo prescrito. 2. Yinka un seguimiento con neely proveedor de atenci?n primaria llamando a la oficina por la ma?matthieu. Regrese a la debbie de emergencias si los s?ntomas empeoran. 1. Resume all home medications as prescribed. 2. Follow-up with your primary care provider by calling the office in the morning. Return to the ER for any worsening symptoms. Prescriptions: No Action (DME) insulin syringe,safetyneedle 0.3 mL 29 x 1/2 syringe See Rx Instructions .Route Qty: 100 0RF Rx Instructions: As directed Narcan 4 mg/actuation spray,non-aerosol 4 mg intranasal Q2M PRN (Reason: opioid overdose) Qty: 2 0RF Rx Instructions: spray 1 dose into ONE nostril; alternate nostrils w each dose until help arrives (DME) lancets [OneTouch Delica Plus Lancet] 33 gauge misc See Rx Instructions topical .MEDSUPPLY Qty: 100 1RF Rx Instructions: As directed (DME) blood-glucose meter [FreeStyle Lite Meter] Kit See Rx Instructions .Route Qty: 1 0RF Rx Instructions: Test 3 times Daily (DME) Comfort EZ Pen [facility] 32 gauge x 5/16 needle See Rx Instructions .Route Qty: 100 0RF Rx Instructions: Use 3 times daily with insulin (DME) FreeStyle Lite Strips Strip See Rx Instructions .Route Qty: 100 0RF Rx Instructions: Test 3 times Daily albuterol sulfate 90 mcg/actuation HFA aerosol inhaler 2 puff inhalation Q4-6H PRN (Reason: for wheezing) Qty: 1 2RF pantoprazole 20 mg tablet,delayed release (DR/EC) 20 mg PO DAILY Qty: 90 1RF metoprolol succinate 50 mg tablet extended release 24 hr 50 mg PO DAILY Qty: 90 1RF pravastatin 20 mg tablet 20 mg PO DAILY Qty: 90 1RF chlorthalidone 25 mg tablet 25 mg PO QAM Qty: 90 1RF venlafaxine 75 mg tablet 75 mg PO .COMPLEX Qty: 270 1RF Rx Instructions: 75 mg PO 2 tabs in the morning, one tab at night.; insulin lispro [Humalog KwikPen Insulin] 100 unit/mL insulin pen 15 unit subcut TID 30 Days Qty: 15 1RF trazodone 100 mg tablet 100 mg PO BEDTIME PRN (Reason: sleep) 90 Days Qty: 90 1RF insulin glargine [Lantus Solostar U-100 Insulin] 100 unit/mL (3 mL) insulin pen 30 unit subcut QPM 30 Days Qty: 15 1RF albuterol sulfate 2.5 mg /3 mL (0.083 %) solution for nebulization 2.5 mg inhalation Q4-6H PRN (Reason: shortness of breath or wheezing) Qty: 90 0RF prednisone 20 mg tablet 40 mg PO DAILY Qty: 10 0RF benzonatate 200 mg capsule 200 mg PO TID PRN (Reason: cough) Qty: 30 0RF tizanidine 2 mg tablet 2 mg PO Q8H PRN (Reason: muscle spasticity) Qty: 45 0RF timolol maleate 0.5 % drops 1 drp ophthalmic (eye) BID latanoprost 0.005 % drops 1 drp ophthalmic (eye) QPM Advair HFA 115-21 mcg/actuation HFA aerosol inhaler 2 puff inhalation BID 30 Days Qty: 12 3RF hydroxyzine pamoate 25 mg capsule 25 mg PO DAILY PRN (Reason: allergies) oxycodone 15 mg tablet 15 mg PO TID PRN (Reason: pain, severe) 30 Days Qty: 90 0RF Rx Instructions: Partial Fill upon patient request. Tapering dose down due to suspension in opioid program. tizanidine 2 mg tablet 2 mg PO TID MDD 3 pills a day PRN (Reason: opioid withdrawal) 30 Days Qty: 90 6RF hydroxyzine HCl 25 mg tablet 25 mg PO BID PRN (Reason: Opioid withdrawal) 30 Days Qty: 60 6RF Print Language: Macedonian
[2023-05-16 21:50] LABS: MANUAL DIFF FLAG NO
[2023-05-16 21:52] LABS: Basophils Percent Auto 0.3 % (0-2); Eosinophils Absolute Auto 0.2 X10*3/uL (0.0-0.4); Eosinophils Percent Auto 1.6 % (0-4); Hematocrit 44.1 % (42.0-52.0); Hemoglobin 13.7 g/dl (14.0-18.0); Imm Gran Abs Auto 0.19 X10*3/uL (0.00-0.03); Imm Gran Pct Auto 1.4 % (0.0-0.4); Lymphocytes Absolute Auto 2.4 X10*3/uL (1.2-4.9); Lymphocytes Percent Auto 17.6 % (20-40); Mean Corpuscular HGB Conc 31.1 g/dl (31.0-36.0); Mean Corpuscular Hemoglobin 22.9 pg (27.0-33.0); Mean Corpuscular Volume 73.6 fL (80.0-98.0); Mean Platelet Volume 10.1 fL (9.4-12.4); Monocytes Absolute Auto 1.2 X10*3/uL (0.1-1.2); Monocytes Percent Auto 8.9 % (2-11); Neutrophils Absolute Auto 9.6 x10*3/uL (2.0-8.3); Neutrophils Percent Auto 70.2 % (45-73); Platelet Count 439 X10*3/uL (160-400); Red Blood Count 5.99 X10*6/uL (4.60-5.80); Red Cell Distribution Width 18.5 % (11.0-16.0); Venous Blood Gas Refer to POC result; White Blood Count 13.7 X10*3/uL (4.8-10.8)
[2023-05-16 21:53] LABS: VBG Base Excess 5.9 mmol/L; VBG HCO3 27 mmol/L (22-26); VBG pCO2 30 mmHg; VBG pH 7.56 (7.32-7.43); VBG pO2 66 mmHg
[2023-05-16 22:06] LABS: Alanine Aminotransferase 19 U/L (0-40); Albumin Level 3.8 g/dL (3.5-5.0); Alkaline Phosphatase 94 U/L (39-117); Anion Gap 16 (12-20); Aspartate Amino Transferase 19 U/L (5-37); Bilirubin Total 0.4 mg/dL (0.0-1.0); Blood Urea Nitrogen 31 mg/dL (9-16); Calcium 9.9 mg/dL (8.4-10.2); Carbon Dioxide 24 mmol/L (22-29); Chloride 104 mmol/L (96-108); Creatinine Clr Calc Pharmacy 67.3; Estimated Glomerular Filt Rate > 60; Ethanol < 10 mg/dL; Glucose Random 116 mg/dL (60-115); Potassium 3.3 mmol/L (3.3-5.1); Sodium 141 mmol/L (135-145); Total Protein 6.8 g/dL (6.5-8.0)
[2023-05-16] MEDS: diphenhydrAMINE HCL 50 MG/ML VIAL IM (22:16)
[2023-05-16] MEDS: LORazepam 2 MG/ML VIAL IM (22:16)
[2023-05-16 23:01] LABS: Amphetamine Screen Urine Not Detected (Not Detect); Barbiturates, Urine Not Detected (Not Detect); Benzodiazepines Screen Urine POSITIVE (Not Detect); Cannabinoid Screen Urine Not Detected (Not Detect); Cocaine Screen Urine Not Detected (Not Detect); Fentanyl, urine POSITIVE (Not Detect); Opiate Screen Urine POSITIVE (Not Detect); Phencyclidine Screen Urine Not Detected (Not Detect)
[2023-05-17 00:04] VITALS: BP 137/70; PULSE 91; RESP 16; O2SAT 95
--- NOTE | 2023-05-17 00:11 | PC.NURSE ---
Late entry: Pt arrived via EMS in physical restraints. EMS reported increased aggression, combative and spitting. Retraints removed as pt agrees to be calm and cooperative. Pt able to be redirected and reported feeling extremely anxious. Pt was not aggressive or combative with tw. Pt restless and fidgety. Defecated on self. Medicated as ordered to decrease anxiety. Pt continued to express feeling anxious and restless. Medicated as ordered. Pt tolerated well. VSS
[2023-05-17] MEDS: hydrOXYzine HCL 50 MG TABLET PO (01:17)
[2023-05-17 01:18] VITALS: BP 119/70; PULSE 94; RESP 14; O2SAT 95
== END 2023-05-17 01:37 | disposition home or self-care (01) ==
PROVIDERS: Emergency Provider Student in an Organized Health Care Education/Training Program
DX: N39.0 Urinary tract infection, site not specified (principal); F19.988 Other psychoactive substance use, unspecified with other psychoactive substance-induced disorder; R41.82 Altered mental status, unspecified; E11.9 Type 2 diabetes mellitus without complications; I10 Essential (primary) hypertension; Z79.4 Long term (current) use of insulin; Z79.899 Other long term (current) drug therapy; Z87.891 Personal history of nicotine dependence; Z79.891 Long term (current) use of opiate analgesic
CPT/HCPCS: 36415; 80053; 80307; 82803; 82947; 85025; 96372; 99285; J1200; J2060

== ENCOUNTER 2023-05-18 12:58 | Outpatient (AMB) | payer MEDICARE, SELFPAY ==
--- NOTE | 2023-05-18 13:05 | MHC.OFFVIS ---
Intake Vital Signs 05/18/23 13:06 Height 5 ft 8 in Weight 237 lb BMI 36.0 BP 141/83 H Blood Pressure Location Rt brachial Position Sitting Pulse 106 H Pulse Source Pulse Oximeter Pulse Oximetry (%) 91 L Oxygen Delivery Method Room Air Intake Visit Reasons: s/p R. 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 Solitario Alicea is back in my office with complains on severe pain in bilateral knees. He went for the right knee radiofrequency ablation and he reports only minimal pain improvement. He reports that he wants to continue chronic opioids here. Unfortunately he was 7 pills short last time and he was suspended in opioid program. His supposed to taper his opioids as of now. He was prescribed hydroxyzine and tizanidine to mitigate opioid withdrawal symptoms. I offered him spinal cord stimulation in lumbar position to alleviate his pain. I offered him also trial of PNS femoral nerve possibly to alleviate pain in the knees. Total knee replacement is also can be considered, I offered him to refer him to orthopedic surgeon. Unfortunately patient rejects all the options of above. He wants content to continue opioid medications. I explained to him that this is not possible in this office but I as suggested that maybe his primary care physician will be able to prescribe opioid medications for him. with the 77 pills in his possession. As of his knee pains he received radiofrequency ablation on the right knee. He reports very good pain relief after radiofrequency ablation. However he reports that the procedure was very painful he wants to go for left knee procedure under general anesthesia. Prior: complains on bilateral knee pain.? He went for diagnostic genicular nerve block I and reported 8 hours of pain reduction from 9/10 to 2/10.? After that pain slowly started to go up.? I offered him radiofrequency ablation of the right genicular nerves.? He decided to go for this procedure.? I also would like to have and potentially have radiofrequency ablation on the left genicular nerve if the results will be similar to the right knee results. He is in our chronic opioid program he receives chronic opioid therapy. Last time he visited me and he received intra-articular left knee steroid injection.? He reported less than 50% pain improvement. He is complaining now more those on the pain in the right knee.? In the past he received attempts to PNS of the femoral nerve an adductor canal to help his knee pain.? Unfortunately this did not result in good pain control because he broke his lead.? He still has a fragment of the lead under his skin.? He was offered to go for minor surgical procedures to have the lead removed however he refused.? If he needs to go for MRI he needs to have these piece of metal to be removed.? Patient was made aware of it by Dr. Hill who was the provider performing PNS sprint for the adductor canal.. [facility] Medical History Allergic rhinitis Allergic rhinitis Arthritis Arthritis of both knees Asthma Asthma Back pain Benign prostatic hyperplasia Bilateral primary osteoarthritis of knee Chronic pain syndrome Class 2 severe obesity with body mass index (BMI) of 35 to 39.9 with serious comorbidity COPD (chronic obstructive pulmonary disease) COPD exacerbation Crohn disease Depression Diabetes mellitus type 2, uncontrolled HTN (hypertension) Lumbar radiculopathy Lumbar spondylosis VIDA on CPAP Osteoarthritis of right knee Sleep apnea Tendon tear Surgical History H/O colonoscopy Family History Father No problems noted. Mother No problems noted. Social History Housing: House Alcohol intake: never Patient Tobacco Use Status: Former Tobacco user e-Cigarette/Vaping Use: Never Used Second Hand Smoke Exposure: No service: No Current occupational status: retired Cognitive needs: Yes (cane) Hearing needs: No Vision needs: Yes (Glasses) Review of Systems Const All systems reviewed & are unremarkable except as noted in HPI and below Physical Exam Vital Signs: Last Vital Signs Pulse 106 H 05/18/23 13:06 BP 141/83 H 05/18/23 13:06 Pulse Ox 91 L 05/18/23 13:06 Oxygen Delivery Method Room Air 05/18/23 13:06 BMI result Body Mass Index 36.0 Const General: cooperative, healthy appearing, no acute distress, alert and well groomed HEENT Head: Yes normocephalic and Yes atraumatic Ears: hearing grossly normal bilaterally Eyes General: appearance normal, both eyes and all related structures Eyelids: Yes eyelids normal EOM: EOMs intact bilaterally Neck Neck: Yes normal visual inspection and Yes no JVD Resp Effort & Inspection: normal respiratory effort, able to speak in complete sentences and no audible wheezes Cardio Jugular venous distension: no JVD Extrem Right lower extremity: ROM limited Left lower extremity: abnormal ROM Assessment & Plan Assessment & Plan (1) Class 2 severe obesity with body mass index (BMI) of 35 to 39.9 with serious comorbidity: Code(s): E66.01 - Morbid (severe) obesity due to excess calories (2) FDC (current) use of opiate analgesic: Code(s): Z79.891 - FDC (current) use of opiate analgesic (3) Bilateral primary osteoarthritis of knee: Code(s): M17.0 - Bilateral primary osteoarthritis of knee (4) Bilateral chronic knee pain: Code(s): M25.561 - Pain in right knee; M25.562 - Pain in left knee; G89.29 - Other chronic pain (5) Osteoarthritis of right knee: Code(s): M17.11 - Unilateral primary osteoarthritis, right knee (6) Arthritis of both knees: Code(s): M17.0 - Bilateral primary osteoarthritis of knee (7) Retained foreign body: Code(s): Z18.9 - Retained foreign body fragments, unspecified material (8) Right knee pain: Code(s): M25.561 - Pain in right knee Plan 1. This patient is suffering from bilateral osteoarthritis. Dr. Hill tried to alleviate his right knee pain with screen PNS and patient had his lead fractured. He refused to go for minor procedure to remove the fractured lead. He was told that he cannot go for MRI without removal of the lead. 2. Intra-articular left knee steroid injection resulted in less than 50% pain relief. I do not think that this patient is a good subject for intra-articular steroid injections. He is morbidly obese, pain relief is less than substantial. 3. Good results of diagnostic genicular nerve block on the right. However the radiofrequency ablation resulted in no pain improvement. in relieve on the right knee. 4. He is suspended in our opioid program for 6 months for being short on 7 pills . 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
[2023-05-18 13:06] VITALS: BP 141/83; PULSE 106; O2SAT 91; BMI 36.0
== END 2023-05-18 13:50 | disposition home or self-care (01) ==
PROVIDERS: PCP Internal Medicine; Visit Provider Anesthesiology
DX: M17.0 Bilateral primary osteoarthritis of knee (principal); E66.01 Morbid (severe) obesity due to excess calories; Z79.891 Long term (current) use of opiate analgesic; M25.561 Pain in right knee; M25.562 Pain in left knee; G89.29 Other chronic pain; M17.11 Unilateral primary osteoarthritis, right knee; Z18.9 Retained foreign body fragments, unspecified material
CPT/HCPCS: 99213

== ENCOUNTER → 2023-05-18 12:58 | Outpatient (BNVA) | payer MEDICARE, SELFPAY | PROVIDERS: Visit Provider Anesthesiology | DX: M17.0 Bilateral primary osteoarthritis of knee (principal); M25.562 Pain in left knee; M25.561 Pain in right knee; G89.4 Chronic pain syndrome; M47.26 Other spondylosis with radiculopathy, lumbar region | CPT/HCPCS: 99212 ==

== ENCOUNTER 2023-05-24 13:38 | Outpatient (AMB) | payer MEDICARE, SELFPAY ==
[2023-05-24 13:42] VITALS: BP 132/78; PULSE 78; O2SAT 93; BMI 36.4
--- NOTE | 2023-05-24 13:42 | MHC.OFFVIS ---
Intake Vital Signs 05/24/23 13:42 Height 5 ft 8 in Weight 239 lb 3.225 oz BMI 36.4 BP 132/78 Blood Pressure Location Lt brachial Position Sitting Pulse 78 Pulse Source Pulse Oximeter Pulse Oximetry (%) 93 Oxygen Delivery Method Room Air Intake Visit Reasons: asthma exacerbation Intake Note: Pt reports experiencing wheezing and coughing, sometimes bringing up little mucus. Allergies hydrocortisone [HYDROCORTISONE] Allergy (Severe, Verified 05/24/23 14:13) SWELLING NSAIDS (Non-Steroidal Anti-Inflamma [NSAIDS (NON-STEROIDAL ANTI-INFLAMMA] Allergy (Severe, Verified 05/24/23 14:13) BLEEDING aspirin Allergy (Unknown, Verified 05/24/23 14:13) bleeding doxycycline Adverse Reaction (Severe, Verified 05/24/23 14:13) in-effective Medication List - Last Reconciled 05/24/23 by Pepe Rojas MD albuterol sulfate 2.5 mg (3 mL) inhalation Q4-6H PRN albuterol sulfate 90 mcg/actuation 2 puffs inhalation Q4-6H PRN blood sugar diagnostic (FreeStyle Lite Strips) Test 3 times Daily blood-glucose meter (FreeStyle Lite Meter kit) Test 3 times Daily brimonidine 0.2% 0 drps ophthalmic (eye) chlorthalidone 25 mg PO QAM fluticasone propion-salmeterol 115-21 mcg/actuation (Advair HFA) 2 puffs inhalation BID 30 days hydroxyzine HCl 25 mg PO BID PRN 30 days insulin glargine (Lantus Solostar U-100 Insulin) 30 units (0.3 mL) subcut QPM 30 days insulin lispro (Humalog KwikPen (U-100) Insulin) 15 units (0.15 mL) subcut TID 30 days insulin syringe,safetyneedle As directed lancets (OneTouch Delica Plus Lancet) As directed latanoprost 0.005% 1 drp ophthalmic (eye) QPM metoprolol succinate ER 50 mg PO DAILY naloxone 4 mg/actuation (Narcan) 4 mg intranasal Q2M PRN pantoprazole 20 mg PO DAILY pen needle, diabetic (Comfort EZ Pen [place]) Use 3 times daily with insulin pravastatin 20 mg PO DAILY timolol maleate 0.5% 1 drp ophthalmic (eye) BID tizanidine 2 mg PO TID PRN 30 days MDD 3 pills a day venlafaxine 75 mg PO 2 tabs in the morning, one tab at night.; Do you need a note to return to daycare/school/sports/work: No HPI asthma exacerbation HPI Details 72 YEARS OLD GENTLEMAN WHO HAS SEVERE CHRONIC OBSTRUCTIVE PULMONARY DISEASE, AND ALLERGIC RHINITIS, IN ADDITION TO MULTIPLE COMORBIDITIES, COMES TODAY AFTER MORE THAN 6 MONTHS FOR FOLLOW-UP, AND COMPLAINS OF MORE FREQUENT COUGH WITH SHORTNESS OF BREATH. HE CLAIMS THAT HE IS VERY TIRED , ABOUT A MONTH AGO HE WAS SEEN IN THE EMERGENCY ROOM WITH INCREASED RESPIRATORY SYMPTOMS, AND WAS TREATED FOR ACUTE EXACERBATION. NOW HE IS OUT OF HIS INHALATION SOLUTION FOR THE [employer], SO HE DECIDED TO COME FOR AN URGENT VISIT. DENIES HAVING ANY FEVER OR CHILLS. THE EXPECTORATED MUCUS IS WHITISH, NOT MUCOPURULENT. HE DOES HAVE VERY FREQUENT BOUTS OF COUGH. HE ALSO HAS OBSTRUCTIVE SLEEP APNEA AND USES CPAP REGULARLY. HE JUST GOT REPLACEMENT UNIT. [facility] Medical History Allergic rhinitis Allergic rhinitis Arthritis Arthritis of both knees Asthma Asthma Back pain Benign prostatic hyperplasia Bilateral primary osteoarthritis of knee Chronic pain syndrome Class 2 severe obesity with body mass index (BMI) of 35 to 39.9 with serious comorbidity COPD (chronic obstructive pulmonary disease) COPD exacerbation Crohn disease Depression Diabetes mellitus type 2, uncontrolled HTN (hypertension) Lumbar radiculopathy Lumbar spondylosis VIDA on CPAP Osteoarthritis of right knee Sleep apnea Tendon tear Surgical History H/O colonoscopy Family History Father No problems noted. Mother No problems noted. Social History Housing: House Alcohol intake: never Patient Tobacco Use Status: Former Tobacco user e-Cigarette/Vaping Use: Never Used Second Hand Smoke Exposure: No service: No Current occupational status: retired Cognitive needs: Yes (cane) Hearing needs: No Vision needs: Yes (Glasses) Review of Systems Const All systems reviewed & are unremarkable except as noted in HPI and below Eyes Reports no additional complaints ENT Reports nasal congestion and Reports nasal discharge (Postnasal discharge off and on) Card Denies chest pain, Denies irregular heart rhythm and Denies dyspnea on exertion Resp Reports as per HPI and Denies dyspnea on exertion GI Reports heartburn (Symptoms of GERD or controlled) Reports no additional complaints Musc Reports back pain, Reports myalgias and Reports arthralgias Skin/Breast Reports system reviewed and no additional complaints, except as documented Neuro Reports no additional complaints Psych Reports no additional complaints Physical Exam Vital Signs: Last Vital Signs Pulse 78 05/24/23 13:42 BP 132/78 05/24/23 13:42 Pulse Ox 93 05/24/23 13:42 Oxygen Delivery Method Room Air 05/24/23 13:42 BMI result Body Mass Index 36.4 Const Other: HE LOOKS OVERWEIGHT, TIRED AND SOMEWHAT DEPRESSED. General: comfortable, no acute distress, alert and awake Orientation/consciousness: patient oriented x3 HEENT Head: Yes normal to inspection General nose exam: No nasal polyps present and No nasal discharge present Face and sinus: Yes sinuses nontender Mouth: oropharynx normal Throat: Yes posterior oropharynx normal Eyes General: appearance normal, both eyes and all related structures Neck Neck: Yes normal visual inspection, Yes no lymphadenopathy, Yes trachea midline and Yes no JVD Thyroid: Thyroid normal Chest Chest palpation & inspection: normal inspection of the chest, normal palpation of entire chest wall and no tenderness Resp Other: PERCUSSION NOTE RESONANT, BREATH SOUNDS ARE VERY DISTANT, WITH PROLONGED EXPIRATORY PHASE. HAS A FEW SCATTERED WHEEZES ON BOTH SIDES .NO CREPITATIONS . Cardio Palpation: normal PMI Rate: regular rate Rhythm: regular rhythm Heart sounds: no gallops and no murmurs GI Palpation (GI): Soft to palpation, nontender, No hepatosplenomegaly present, no masses and Other GI palpation findings present (ABDOMEN IS MODERATELY PROTUBERANT) Auscultation: normal bowel sounds Back/Spine/Pelvis Thoracic/Lumbar Spine: thoracic and lumbar spine normal to inspection, thoraco-lumbar ROM limited and thoraco-lumbar spasm Skin General skin exam: no rashes or lesions noted Neuro General: patient oriented x3 and no focal motor deficits Cranial nerves: Yes CN's II-XII intact bilaterally Extrem General: Yes normal to inspection, No no joint enlargement (BOTH KNEES ARE SLIGHTLY ENLARGED AND PAINFUL), Yes no clubbing, cyanosis or edema, Yes no calf tenderness and Yes normal gait (NEEDS A CANE) Psych Appearance: grossly normal Speech and movement: Normal speech and movement present Assessment & Plan Assessment & Plan (1) COPD (chronic obstructive pulmonary disease): Comment: THIS GENTLEMAN HAS CHRONIC, MODERATELY SEVERE, ASTHMA/COPD OVERLAP SYNDROME. HIS SYMPTOMS ARE INCREASED BECAUSE HE DOES NOT HAVE THE INHALATION SOLUTION AT HOME. I HAVE RENEWED HIS MEDS. I WOULD CHANGE HIS ALBUTEROL INHALATION SOLUTION TO IPRATROPIUM/ALBUTEROL 3 MALE IN NEBULIZER Q 6 HOURS WHILE AWAKE. AND HE CAN USE HIS ALBUTEROL HFA 2 PUFFS Q 4-6 HOURS P.R.N. WHEN OUTDOORS. ALSO CONTINUE ADVAIR HFA 115-212 PUFFS B.I.D. Code(s): J44.9 - Chronic obstructive pulmonary disease, unspecified (2) Allergic rhinitis: Comment: He has chronic allergic rhinitis, remains controlled with p.r.n. use of loratadine. Advised to continue using Flonase 1 spray each nostril b.i.d. May also use Loratadine 10 mg once a day PRN . Code(s): J30.9 - Allergic rhinitis, unspecified (3) VIDA on CPAP: Comment: THIS GENTLEMAN HAS OBSTRUCTIVE SLEEP APNEA FOR MANY YEARS, HAS BEEN USING HIS CPAP VERY. REGULARLY AT NIGHT HE JUST GOT A NEW REPLACEMENT UNIT WHICH HE WILL BE STARTING TO USE, Code(s): G47.33 - Obstructive sleep apnea (adult) (pediatric); Z99.89 - Dependence on other enabling machines and devices (4) Asthma: Comment: He has asthma/COPD overlap syndrome. He gets frequent flare ups of bronchial asthma. [place] : As under COPD Code(s): J45.909 - Unspecified asthma, uncomplicated Medications: New ipratropium-albuterol 0.5 mg-3 mg(2.5 mg base)/3 mL 3 mL inhalation QID 360 mL 3RF COPD, SEVERE 30 days Coding Level of Care Code Est Pt Level 3 (39725) Diagnoses COPD (chronic obstructive pulmonary disease) J44.9 Allergic rhinitis J30.9 VIDA on CPAP G47.33; Z99.89 Asthma J45.909
== END 2023-05-24 14:12 | disposition home or self-care (01) ==
PROVIDERS: Visit Provider Internal Medicine
DX: J45.909 Unspecified asthma, uncomplicated (principal); G47.33 Obstructive sleep apnea (adult) (pediatric); Z99.89 Dependence on other enabling machines and devices
CPT/HCPCS: 99213

== ENCOUNTER → 2023-05-24 13:38 | Outpatient (BNVA) | payer MEDICARE, SELFPAY | PROVIDERS: Visit Provider Internal Medicine | DX: J44.1 Chronic obstructive pulmonary disease with (acute) exacerbation (principal); J45.50 Severe persistent asthma, uncomplicated; J30.9 Allergic rhinitis, unspecified; G47.33 Obstructive sleep apnea (adult) (pediatric); Z87.891 Personal history of nicotine dependence; Z99.89 Dependence on other enabling machines and devices | CPT/HCPCS: 99212 ==

== ENCOUNTER 2023-08-09 12:37 | Outpatient (AMB) | payer MEDICARE, SELFPAY ==
[2023-08-09 13:16] VITALS: BP 102/68; PULSE 80; O2SAT 92; BMI 36.8
--- NOTE | 2023-08-09 13:16 | MHC.OFFVIS ---
Intake Vital Signs 08/09/23 13:16 Height 5 ft 8 in Weight 242 lb BMI 36.8 BP 102/68 Blood Pressure Location Lt brachial Position Sitting Pulse 80 Pulse Source Pulse Oximeter Pulse Oximetry (%) 92 Oxygen Delivery Method Room Air Intake Visit Reasons: asthma exacerbation Intake Note: pt is here for follow up and states he is doing okay Director Of Aviation Required: No Allergies hydrocortisone [HYDROCORTISONE] Allergy (Severe, Verified 08/09/23 13:32) SWELLING NSAIDS (Non-Steroidal Anti-Inflamma [NSAIDS (NON-STEROIDAL ANTI-INFLAMMA] Allergy (Severe, Verified 08/09/23 13:32) BLEEDING aspirin Allergy (Unknown, Verified 08/09/23 13:32) bleeding doxycycline Adverse Reaction (Severe, Verified 08/09/23 13:32) in-effective Medication List - Last Reconciled 08/09/23 by Pepe Rojas MD albuterol sulfate 2.5 mg (3 mL) inhalation Q4-6H PRN albuterol sulfate 90 mcg/actuation 2 puffs inhalation Q4-6H PRN blood sugar diagnostic (FreeStyle Lite Strips) Test 3 times Daily blood-glucose meter (FreeStyle Lite Meter kit) Test 3 times Daily brimonidine 0.2% 0 drps ophthalmic (eye) chlorthalidone 25 mg PO QAM fluticasone propion-salmeterol 115-21 mcg/actuation (Advair HFA) 2 puffs inhalation BID 30 days hydroxyzine HCl 25 mg PO BID PRN 30 days insulin glargine (Lantus Solostar U-100 Insulin) 30 units (0.3 mL) subcut QPM 30 days insulin lispro (Humalog KwikPen (U-100) Insulin) 15 units (0.15 mL) subcut TID 30 days insulin syringe,safetyneedle As directed ipratropium-albuterol 0.5 mg-3 mg(2.5 mg base)/3 mL 3 mL inhalation QID 30 days lancets (OneTouch Delica Plus Lancet) As directed latanoprost 0.005% 1 drp ophthalmic (eye) QPM metoprolol succinate ER 50 mg PO DAILY naloxone 4 mg/actuation (Narcan) 4 mg intranasal Q2M PRN pantoprazole 20 mg PO DAILY pen needle, diabetic (Comfort EZ Pen [place]) Use 3 times daily with insulin timolol maleate 0.5% 1 drp ophthalmic (eye) BID tizanidine 2 mg PO TID PRN 30 days MDD 3 pills a day venlafaxine 75 mg PO 2 tabs in the morning, one tab at night.; Do you need a note to return to daycare/school/sports/work: No HPI asthma exacerbation HPI Details THIS 73 YEARS OLD GENTLEMAN IS HERE FOR HIS ROUTINE FOLLOW-UP. BREATHING GELLER HAS BEEN STABLE THOUGH HE GETS SHORT OF BREATH ON WALKING AROUND. AND ALSO HAS MILD INTERMITTENT COUGH. LUCKILY HE HAS HAD NO RESPIRATORY INFECTION. USES CPAP EVERY NIGHT AND SLEEPS WELL FOR AT LEAST 5-6 HOURS PER NIGHT. DENIES DAYTIME SLEEPINESS. HAS NO ISSUE WITH THE MASK OR CPAP DEVICE AT THIS TIME. [facility] Medical History Class 2 severe obesity with body mass index (BMI) of 35 to 39.9 with serious comorbidity Bilateral primary osteoarthritis of knee Osteoarthritis of right knee Diabetes mellitus type 2, uncontrolled COPD exacerbation Arthritis of both knees Chronic pain syndrome Allergic rhinitis VIDA on CPAP COPD (chronic obstructive pulmonary disease) Lumbar radiculopathy Allergic rhinitis Asthma Benign prostatic hyperplasia Back pain Sleep apnea HTN (hypertension) Lumbar spondylosis Tendon tear Depression Arthritis Asthma Crohn disease Surgical History H/O colonoscopy Family History Father No problems noted. Mother No problems noted. Social History Housing: House Alcohol intake: never Patient Tobacco Use Status: Former Tobacco user e-Cigarette/Vaping Use: Never Used Second Hand Smoke Exposure: No service: No Current occupational status: retired Cognitive needs: Yes (cane) Hearing needs: No Vision needs: Yes (Glasses) Review of Systems Const All systems reviewed & are unremarkable except as noted in HPI and below Eyes Reports no additional complaints ENT Reports nasal congestion and Reports nasal discharge (Postnasal discharge off and on) Card Denies chest pain, Denies irregular heart rhythm and Denies dyspnea on exertion Resp Reports as per HPI and Denies dyspnea on exertion GI Reports heartburn (Symptoms of GERD or controlled) Reports no additional complaints Musc Reports back pain, Reports myalgias and Reports arthralgias Skin/Breast Reports system reviewed and no additional complaints, except as documented Neuro Reports no additional complaints Psych Reports no additional complaints Physical Exam Vital Signs: Last Vital Signs Pulse 80 08/09/23 13:16 BP 102/68 08/09/23 13:16 Pulse Ox 92 08/09/23 13:16 Oxygen Delivery Method Room Air 08/09/23 13:16 BMI result Body Mass Index 36.8 Const Other: HE LOOKS OVERWEIGHT, TIRED AND SOMEWHAT DEPRESSED. General: comfortable, no acute distress, alert and awake Orientation/consciousness: patient oriented x3 HEENT Head: Yes normal to inspection General nose exam: No nasal polyps present and No nasal discharge present Face and sinus: Yes sinuses nontender Mouth: oropharynx normal Throat: Yes posterior oropharynx normal Eyes General: appearance normal, both eyes and all related structures Neck Neck: Yes normal visual inspection, Yes no lymphadenopathy, Yes trachea midline and Yes no JVD Thyroid: Thyroid normal Chest Chest palpation & inspection: normal inspection of the chest, normal palpation of entire chest wall and no tenderness Resp Other: PERCUSSION NOTE RESONANT, BREATH SOUNDS ARE VERY DISTANT, WITH PROLONGED EXPIRATORY PHASE. HAS A FEW SCATTERED WHEEZES ON BOTH SIDES .NO CREPITATIONS . Cardio Palpation: normal PMI Rate: regular rate Rhythm: regular rhythm Heart sounds: no gallops and no murmurs GI Palpation (GI): Soft to palpation, nontender, No hepatosplenomegaly present, no masses and Other GI palpation findings present (ABDOMEN IS MODERATELY PROTUBERANT) Auscultation: normal bowel sounds Back/Spine/Pelvis Thoracic/Lumbar Spine: thoracic and lumbar spine normal to inspection, thoraco-lumbar ROM limited and thoraco-lumbar spasm Skin General skin exam: no rashes or lesions noted Neuro General: patient oriented x3 and no focal motor deficits Cranial nerves: Yes CN's II-XII intact bilaterally Extrem General: Yes normal to inspection, No no joint enlargement (BOTH KNEES ARE SLIGHTLY ENLARGED AND PAINFUL), Yes no clubbing, cyanosis or edema, Yes no calf tenderness and Yes normal gait (NEEDS A CANE) Psych Appearance: grossly normal Speech and movement: Normal speech and movement present Assessment & Plan Assessment & Plan (1) COPD (chronic obstructive pulmonary disease): Comment: THIS GENTLEMAN HAS CHRONIC, MODERATELY SEVERE, ASTHMA/COPD OVERLAP SYNDROME. HE IS STABLE AT THIS TIME. TX : IPRATROPIUM/ALBUTEROL 3 ML IN NEBULIZER Q 6 HOURS WHILE AWAKE. AND HE CAN USE HIS ALBUTEROL HFA 2 PUFFS Q 4-6 HOURS P.R.N. WHEN OUTDOORS. ALSO CONTINUE ADVAIR HFA 115-212 PUFFS B.I.D. Code(s): J44.9 - Chronic obstructive pulmonary disease, unspecified (2) Allergic rhinitis: Comment: He has chronic allergic rhinitis, remains controlled with p.r.n. use of loratadine. Advised to continue using Flonase 1 spray each nostril b.i.d. May also use Loratadine 10 mg once a day PRN . Code(s): J30.9 - Allergic rhinitis, unspecified (3) Asthma: Comment: He has asthma/COPD overlap syndrome. He gets frequent flare ups of bronchial asthma. [place] : As under COPD Code(s): J45.909 - Unspecified asthma, uncomplicated (4) VIDA on CPAP: Comment: THIS GENTLEMAN HAS OBSTRUCTIVE SLEEP APNEA FOR MANY YEARS, HAS BEEN USING HIS CPAP VERY. REGULARLY AT NIGHT HE JUST GOT A NEW REPLACEMENT UNIT AND IS DOING WELL . Code(s): G47.33 - Obstructive sleep apnea (adult) (pediatric); Z99.89 - Dependence on other enabling machines and devices Coding Level of Care Code Est Pt Level 4 (07439) Diagnoses COPD (chronic obstructive pulmonary disease) J44.9 Allergic rhinitis J30.9 Asthma J45.909 VIDA on CPAP G47.33; Z99.89
== END 2023-08-09 13:35 | disposition home or self-care (01) ==
PROVIDERS: Visit Provider Internal Medicine
DX: J44.9 Chronic obstructive pulmonary disease, unspecified (principal); J30.9 Allergic rhinitis, unspecified; J45.909 Unspecified asthma, uncomplicated; G47.33 Obstructive sleep apnea (adult) (pediatric); Z99.89 Dependence on other enabling machines and devices
CPT/HCPCS: 99214

== ENCOUNTER → 2023-08-09 12:37 | Outpatient (BNVA) | payer MEDICARE, SELFPAY | PROVIDERS: Visit Provider Internal Medicine | DX: J44.9 Chronic obstructive pulmonary disease, unspecified (principal); J45.909 Unspecified asthma, uncomplicated; G47.33 Obstructive sleep apnea (adult) (pediatric); Z99.89 Dependence on other enabling machines and devices | CPT/HCPCS: 99212 ==

== ENCOUNTER 2023-08-18 19:11 | Emergency (ER) | payer MEDICARE, SELFPAY ==
--- NOTE | ~2023-08-18 | CT_ITS ---
EXAMINATION: CT CERVICAL SPINE WITHOUT CONTRAST CLINICAL INFORMATION: Neck pain and stiffness. COMPARISON: None available. TECHNIQUE: Multidetector helical imaging of the cervical spine was obtained without intravenous contrast. Multiple axial reformats and coronal/sagittal reconstructions were created the technologist workstation for review. This CT examination was performed using dose optimization techniques as appropriate, variously including the following: *Automated exposure control. *Adjustment of mA and/or kV according to patient size (this includes techniques or standardized protocols for targeted exams where dose is matched to indication/reason for exam; i.e. extremities or head). *Use of iterative reconstruction technique. DLP: 437 mGy-cm FINDINGS: The atlantooccipital and atlantoaxial articulations remain well aligned. Straightening of the normal cervical lordosis. Otherwise, there is anatomic alignment of the vertebral bodies and posterior elements. No evidence of acute fracture or subluxation. The vertebral body heights are maintained. Moderate degenerative disc disease from C2-C6. There is no prevertebral soft tissue swelling. The thyroid gland and remaining cervical soft tissues are within normal limits. The lung apices demonstrate no abnormalities. Multifocal odontogenic enamel erosions and periapical lucencies, most notably involving the maxillary right molars. SPINAL LEVELS: C2-C3: Minimal disc-osteophyte complex. There is no uncovertebral joint arthropathy. There is mild bilateral facet joint arthropathy. There is no neural foraminal stenosis. There is no demonstrated spinal canal stenosis. C3-C4: Mild disc-osteophyte complex. There is moderate right and mild left uncovertebral joint arthropathy. There is moderate right and mild left facet joint arthropathy. There is severe right and mild left neural foraminal stenosis. There is no demonstrated spinal canal stenosis. C4-C5: Moderate disc-osteophyte complex. There is mild bilateral uncovertebral joint arthropathy. There is moderate bilateral facet joint arthropathy. There is moderate right and mild left neural foraminal stenosis. There appears to be mild spinal canal stenosis. C5-C6: Mild disc-osteophyte complex. There is mild bilateral uncovertebral joint arthropathy. There is mild bilateral facet joint arthropathy. There is mild bilateral neural foraminal stenosis. There appears to be mild spinal canal stenosis. C6-C7: Normal annular contour. There is mild left and no right uncovertebral joint arthropathy. There is mild bilateral facet joint arthropathy. There is mild left and no right neural foraminal stenosis. There is no demonstrated spinal canal stenosis. C7-T1: Normal annular contour. There is mild bilateral uncovertebral joint arthropathy. There is moderate right and mild left facet joint arthropathy. There is mild bilateral neural foraminal stenosis. There is no demonstrated spinal canal stenosis. CT/CT cervical spine wo IV con IMPRESSION: 1. No evidence of acute fracture or traumatic subluxation of the cervical spine. 2. Moderate multilevel degenerative spondyloarthropathy of the cervical spine as described in detail above. Most notably on this limited exam without intrathecal contrast, there appears to be mild spinal canal stenoses at C4-C5 and C5-C6. Moderate to severe neural foraminal stenoses at C3-C4 and C4-C5. 3. Moderate multifocal odontogenic disease, most notably involving the maxillary right molars.
[2023-08-18 19:34] VITALS: BP 133/55; PULSE 75; RESP 14; TEMP 36.8; O2SAT 98; BMI 36.5
--- NOTE | 2023-08-18 19:35 | ED.HA ---
HPI - Headache General Chief Complaint: Neck Pain/Injury Stated Complaint: neck and head pain Time Seen by Provider: 08/18/23 21:43 Source: patient and family Mode of arrival: ambulatory Limitations: no limitations History of Present Illness HPI Narrative: Patient comes to the emergency room complaining of right-sided neck pain since yesterday morning. Patient states that he woke up yesterday with right-sided neck pain. Patient states that moving his head in certain ways triggers the pain. Patient denies any trauma, no C-spine tenderness. Patient states that he is able to flex and extend the neck. However, rotation right to left causes significant pain on the right side. Related Data Home Medications Medication Instructions Recorded Confirmed latanoprost 0.005 % eye drops 1 drp ophthalmic (eye) QPM 11/17/21 03/31/23 timolol maleate 0.5 % eye drops 1 drp ophthalmic (eye) BID 11/17/21 03/31/23 brimonidine 0.2 % eye drops 0 drp ophthalmic (eye) 05/18/23 Previous Rx's Medication Instructions Recorded insulin syringe,safetyneedle 0.3 #100 ea 09/28/21 mL 29 gauge x 1/2 naloxone 4 mg/actuation nasal 4 mg intranasal Q2M PRN opioid 10/29/21 spray (Narcan) overdose #2 ea blood-glucose meter (FreeStyle #1 ea 02/09/22 Lite Meter kit) lancets 33 gauge (OneTouch Delica #100 ea 02/09/22 Plus Lancet) pen needle, diabetic 32 gauge x #100 ea 04/09/22/16 (Comfort EZ Pen [place]) fluticasone propionate 115 2 puff inhalation BID ASTHMA/COPD 06/15/22 mcg-salmeterol 21 mcg/actuation 30 days #12 grams HFA inhaler (Advair HFA) blood sugar diagnostic (FreeStyle #100 ea 09/13/22 Lite Strips) albuterol sulfate 90 mcg/actuation 2 puff inhalation Q4-6H PRN for 11/03/22 aerosol inhaler wheezing #1 ea hydroxyzine HCl 25 mg tablet 25 mg PO BID PRN Opioid withdrawal 04/06/23 30 days #60 tabs tizanidine 2 mg tablet 2 mg PO TID PRN opioid withdrawal 04/06/23 30 days #90 tabs albuterol sulfate 2.5 mg/3 mL 2.5 mg (3 mL) inhalation Q4-6H PRN 04/23/23 (0.083 %) solution for nebulization shortness of breath or wheezing #90 mL ipratropium 0.5 mg-albuterol 3 mg 3 ml inhalation QID COPD, SEVERE 05/24/23 (2.5 mg base)/3 mL nebulization 30 days #360 mL soln chlorthalidone 25 mg tablet 25 mg PO QAM #90 tabs 05/27/23 insulin lispro 100 unit/mL 15 unit (0.15 mL) subcut TID 30 05/27/23 subcutaneous pen (Humalog KwikPen days #15 mL (U-100) Insulin) metoprolol succinate 50 mg 50 mg PO DAILY #90 tabs 05/27/23 tablet,extended release 24 hr pantoprazole 20 mg tablet,delayed 20 mg PO DAILY #90 tabs 05/27/23 release insulin glargine 100 unit/mL (3 30 unit (0.3 mL) subcut QPM 30 07/06/23 mL) subcutaneous pen (Lantus days #15 mL Solostar U-100 Insulin) venlafaxine 75 mg tablet 75 mg PO .COMPLEX #270 tabs 08/04/23 diazepam 2 mg tablet 2 mg PO BEDTIME PRN muscle spasm 08/18/23 #3 tabs Allergies Allergy/AdvReac Type Severity Reaction Status Date / Time hydrocortisone Allergy Severe SWELLING Verified 08/09/23 13:32 [HYDROCORTISONE] NSAIDS (Non-Steroidal Allergy Severe BLEEDING Verified 08/09/23 13:32 Anti-Inflamma [NSAIDS (NON-STEROIDAL ANTI-INFLAMMA] aspirin Allergy Unknown bleeding Verified 08/09/23 13:32 doxycycline AdvReac Severe in-effectiv Verified 08/09/23 13:32 e Review of Systems Review of Systems: Constitutional : No Weight loss, No Fever, No Chills, No Night Sweats, No Fatigue, No Malaise ENT/Mouth : No Hearing loss, No Ear Pain, No Nasal Congestion, No Sinus Pain, No Hoarseness, No sore throat, No Rhinorrhea, No Swallowing Difficulty Eyes: No Eye Pain, No Swelling, No Redness, No Foreign Body, No Discharge, No Vision Changes Cardiovascular : No Chest Pain, No SOB, No Dyspnea on Exertion, No Orthopnea, No Edema, No Palpitations Respiratory : No Cough, No Sputum, No Wheezing, No Smoke Exposure, No Dyspnea Gastrointestinal : No Nausea, No Vomiting, No Diarrhea, No Constipation, No abdominal Pain, No Hematochezia, No Melena Genitourinary : no irregular bleeding, No Dysuria, No Urinary Frequency, No Hematuria, No Urinary Incontinence, No Urgency, No Flank Pain, No Urinary Flow Changes, No Hesitancy Musculoskeletal : Draining of right-sided neck pain with certain neck movements No joint pain, No Myalgias, No Joint Swelling Skin : No Skin Lesions, No rash Neuro : No Weakness, No Numbness, No Paresthesias, No Loss of Consciousness, No Dizziness, No Headache Psych : No Anxiety/Panic, No Depression, No SI/HI/AH/VH, No Social Issues, Heme/Lymph: No Bruising, No Bleeding,No Lymphadenopathy Endocrine : No Polyuria, No Polydipsia, No Temperature Intolerance PMFSH Past Medical History Medical History Class 2 severe obesity with body mass index (BMI) of 35 to 39.9 with serious comorbidity Bilateral primary osteoarthritis of knee Osteoarthritis of right knee Diabetes mellitus type 2, uncontrolled COPD exacerbation Arthritis of both knees Chronic pain syndrome Allergic rhinitis VIDA on CPAP COPD (chronic obstructive pulmonary disease) Lumbar radiculopathy Allergic rhinitis Asthma Benign prostatic hyperplasia Back pain Sleep apnea HTN (hypertension) Lumbar spondylosis Tendon tear Depression Arthritis Asthma Crohn disease Surgical History H/O colonoscopy Family History Family History Father No problems noted. Mother No problems noted. Social History Social History Housing: House Alcohol intake: never Patient Tobacco Use Status: Former Tobacco user e-Cigarette/Vaping Use: Never Used Second Hand Smoke Exposure: No Advance Directives: No Advance Directives Information Provided: No service: No Current occupational status: retired Cognitive needs: Yes (cane) Hearing needs: No Vision needs: Yes (Glasses) Physical Exam Vital Signs: Vital Signs: Last Vital Signs Temp 98.3 F 08/18/23 19:34 Pulse 75 08/18/23 19:34 Resp 14 08/18/23 19:34 BP 133/55 L 08/18/23 19:34 Pulse Ox 98 08/18/23 19:34 O2 Del Method Room Air 08/18/23 19:34 BMI result Body Mass Index 36.5 Const: Other: Appearance: Alert. Oriented X3. No acute distress. Eyes: Pupils equal, round and reactive to light. ENT: Pharynx normal. Neck: No C-spine tenderness, no palpable step-offs, no lymphadenopathy. Patient has pain especially on the right side of the neck with rotation, patient able to flex and extend neck. Patient has reproducible pain to palpation over the right side of the neck CVS: Normal heart rate and rhythm. Pulses normal. Normal S1 and S2 Respiratory: No respiratory distress. Breath sounds normal. No Wheezing. No rales Abdomen: Soft and nontender. No rigidity. No distention. Skin: Skin warm and dry. Normal skin color. Normal skin turgor. Extremities: No lower extremity edema. No Lacerations. No Rash Neuro: Oriented X 3. No motor deficit. No sensory deficit. Moving all extremities. No slurred speech. CN 2 through 12 grossly intact Psych: calm, cooperative, normal affect Course Course Course Narrative: RME: 73yo M w/PMHx osteoarthritis, diabetes, COPD, with an CPAP, sleep apnea, HTN, depression, Crohn's, c/o right sided neck pain and RENNER since waking yesterday. denies injury/fall, visual loss, weakness, fever, chills +Stiff neck/torticollis noted w/decreased ROM 2/2 pain. +midline and R paraspinal ttp. CT ordered. Will need pain control Full HPI, ROS and PE to be performed by primary ED provider. Medical Decision Making Medical Decision Making [facility] Narrative: -CT scan was ordered from triage earlier today, my interpretation: No obvious fractures. -discussed the physical exam with the patient, patient likely has torticollis -patient given an IM injection of morphine and p.o. diazepam. Patient cannot take NSAIDs due to GI bleeds/Crohn's Differential Diagnosis Differential Diagnoses: The differential diagnosis associated with the presentation includes (Cervical contusion, fracture, torticolis) Independent Interpretation I performed an independent interpretation of an: CT Scan Radiology Impression Discussion of test interpretation with radiology: I have reviewed the radiologist's reading. Radiologist Impression: INDINGS: The atlantooccipital and atlantoaxial articulations remain well aligned. Straightening of the normal cervical lordosis. Otherwise, there is anatomic alignment of the vertebral bodies and posterior elements. No evidence of acute fracture or subluxation. The vertebral body heights are maintained. Moderate degenerative disc disease from C2-C6. There is no prevertebral soft tissue swelling. The thyroid gland and remaining cervical soft tissues are within normal limits. The lung apices demonstrate no abnormalities. Multifocal odontogenic enamel erosions and periapical lucencies, most notably involving the maxillary right molars. SPINAL LEVELS: C2-C3: Minimal disc-osteophyte complex. There is no uncovertebral joint arthropathy. There is mild bilateral facet joint arthropathy. There is no neural foraminal stenosis. There is no demonstrated spinal canal stenosis. C3-C4: Mild disc-osteophyte complex. There is moderate right and mild left uncovertebral joint arthropathy. There is moderate right and mild left facet joint arthropathy. There is severe right and mild left neural foraminal stenosis. There is no demonstrated spinal canal stenosis. C4-C5: Moderate disc-osteophyte complex. There is mild bilateral uncovertebral joint arthropathy. There is moderate bilateral facet joint arthropathy. There is moderate right and mild left neural foraminal stenosis. There appears to be mild spinal canal stenosis. C5-C6: Mild disc-osteophyte complex. There is mild bilateral uncovertebral joint arthropathy. There is mild bilateral facet joint arthropathy. There is mild bilateral neural foraminal stenosis. There appears to be mild spinal canal stenosis. C6-C7: Normal annular contour. There is mild left and no right uncovertebral joint arthropathy. There is mild bilateral facet joint arthropathy. There is mild left and no right neural foraminal stenosis. There is no demonstrated spinal canal stenosis. C7-T1: Normal annular contour. There is mild bilateral uncovertebral joint arthropathy. There is moderate right and mild left facet joint arthropathy. There is mild bilateral neural foraminal stenosis. There is no demonstrated spinal canal stenosis. CT/CT cervical spine wo IV con IMPRESSION: 1. No evidence of acute fracture or traumatic subluxation of the cervical spine. 2. Moderate multilevel degenerative spondyloarthropathy of the cervical spine as described in detail above. Most notably on this limited exam without intrathecal contrast, there appears to be mild spinal canal stenoses at C4-C5 and C5-C6. Moderate to severe neural foraminal stenoses at C3-C4 and C4-C5. 3. Moderate multifocal odontogenic disease, most notably involving the maxillary right molars. Discharge Plan Discharge Clinical Impression: Acute torticollis Patient Disposition: Home, Self-Care Instructions: Spasmodic Torticollis (ED) Additional Instructions: Please follow-up with your primary care physician tomorrow. If you have any worsening or new symptoms, please return to the emergency room or call 911 Prescriptions: New diazepam 2 mg tablet 2 mg PO BEDTIME PRN (Reason: muscle spasm) Qty: 3 0RF No Action (DME) insulin syringe,safetyneedle 0.3 mL 29 x 1/2 syringe See Rx Instructions .Route Qty: 100 0RF Rx Instructions: As directed Narcan 4 mg/actuation spray,non-aerosol 4 mg intranasal Q2M PRN (Reason: opioid overdose) Qty: 2 0RF Rx Instructions: spray 1 dose into ONE nostril; alternate nostrils w each dose until help arrives (DME) lancets [OneTouch Delica Plus Lancet] 33 gauge misc See Rx Instructions topical .MEDSUPPLY Qty: 100 1RF Rx Instructions: As directed (DME) blood-glucose meter [FreeStyle Lite Meter] Kit See Rx Instructions .Route Qty: 1 0RF Rx Instructions: Test 3 times Daily (DME) Comfort EZ Pen [place] 32 gauge x 5/16 needle See Rx Instructions .Route Qty: 100 0RF Rx Instructions: Use 3 times daily with insulin (DME) FreeStyle Lite Strips Strip See Rx Instructions .Route Qty: 100 0RF Rx Instructions: Test 3 times Daily albuterol sulfate 90 mcg/actuation HFA aerosol inhaler 2 puff inhalation Q4-6H PRN (Reason: for wheezing) Qty: 1 2RF pantoprazole 20 mg tablet,delayed release (DR/EC) 20 mg PO DAILY Qty: 90 1RF metoprolol succinate 50 mg tablet extended release 24 hr 50 mg PO DAILY Qty: 90 1RF chlorthalidone 25 mg tablet 25 mg PO QAM Qty: 90 1RF insulin lispro [Humalog KwikPen Insulin] 100 unit/mL insulin pen 15 unit subcut TID 30 Days Qty: 15 1RF insulin glargine [Lantus Solostar U-100 Insulin] 100 unit/mL (3 mL) insulin pen 30 unit subcut QPM 30 Days Qty: 15 1RF venlafaxine 75 mg tablet 75 mg PO .COMPLEX Qty: 270 0RF Rx Instructions: 75 mg PO 2 tabs in the morning, one tab at night.; albuterol sulfate 2.5 mg /3 mL (0.083 %) solution for nebulization 2.5 mg inhalation Q4-6H PRN (Reason: shortness of breath or wheezing) Qty: 90 0RF timolol maleate 0.5 % drops 1 drp ophthalmic (eye) BID latanoprost 0.005 % drops 1 drp ophthalmic (eye) QPM Advair HFA 115-21 mcg/actuation HFA aerosol inhaler 2 puff inhalation BID 30 Days Qty: 12 3RF tizanidine 2 mg tablet 2 mg PO TID MDD 3 pills a day PRN (Reason: opioid withdrawal) 30 Days Qty: 90 6RF hydroxyzine HCl 25 mg tablet 25 mg PO BID PRN (Reason: Opioid withdrawal) 30 Days Qty: 60 6RF brimonidine 0.2 % drops 0 drp ophthalmic (eye) ipratropium-albuterol 0.5 mg-3 mg(2.5 mg base)/3 mL solution for nebulization 3 ml inhalation QID 30 Days Qty: 360 3RF
[2023-08-18] MEDS: diazePAM 2 MG TABLET PO (22:07)
[2023-08-18] MEDS: Morphine Sulfate 2 MG/ML CARTRIDGE 1 MG IM (22:07)
[2023-08-18 23:11] VITALS: BP 154/73; PULSE 70; RESP 16; O2SAT 95
== END 2023-08-18 23:15 | disposition home or self-care (01) ==
PROVIDERS: Emergency Provider Emergency Medicine; PCP Internal Medicine
DX: M43.6 Torticollis (principal); E11.9 Type 2 diabetes mellitus without complications; I10 Essential (primary) hypertension; Z87.891 Personal history of nicotine dependence; Z79.4 Long term (current) use of insulin; Z79.899 Other long term (current) drug therapy
CPT/HCPCS: 72125; 96372; 99284; J2270

== ENCOUNTER 2023-10-30 22:53 | Emergency (ER) | payer MEDICARE, SELFPAY ==
[2023-10-30 23:05] VITALS: BP 121/78; PULSE 75; RESP 17; TEMP 36.7; O2SAT 95; BMI 36.5
[2023-10-30 23:51] LABS: MANUAL DIFF FLAG NO
[2023-10-30 23:52] LABS: Basophils Percent Auto 0.5 % (0-2); Eosinophils Absolute Auto 0.1 X10*3/uL (0.0-0.4); Eosinophils Percent Auto 1.4 % (0-4); Hematocrit 45.5 % (42.0-52.0); Hemoglobin 15.5 g/dl (14.0-18.0); Imm Gran Abs Auto 0.02 X10*3/uL (0.00-0.03); Imm Gran Pct Auto 0.3 % (0.0-0.4); Lymphocytes Absolute Auto 1.7 X10*3/uL (1.2-4.9); Lymphocytes Percent Auto 26.4 % (20-40); Mean Corpuscular HGB Conc 34.1 g/dl (31.0-36.0); Mean Corpuscular Hemoglobin 27.3 pg (27.0-33.0); Mean Corpuscular Volume 80.1 fL (80.0-98.0); Mean Platelet Volume 10.5 fL (9.4-12.4); Monocytes Absolute Auto 0.5 X10*3/uL (0.1-1.2); Monocytes Percent Auto 7.1 % (2-11); Neutrophils Absolute Auto 4.3 x10*3/uL (2.0-8.3); Neutrophils Percent Auto 64.3 % (45-73); Platelet Count 307 X10*3/uL (160-400); Red Blood Count 5.68 X10*6/uL (4.60-5.80); Red Cell Distribution Width 14.6 % (11.0-16.0); White Blood Count 6.6 X10*3/uL (4.8-10.8)
[2023-10-31 00:11] LABS: Alanine Aminotransferase 15 U/L (0-40); Albumin Level 3.9 g/dL (3.5-5.0); Alkaline Phosphatase 124 U/L (39-117); Anion Gap 12 (12-20); Aspartate Amino Transferase 16 U/L (5-37); Bilirubin Total 0.6 mg/dL (0.0-1.0); Blood Urea Nitrogen 16 mg/dL (9-16); Calcium 10.2 mg/dL (8.4-10.2); Carbon Dioxide 27 mmol/L (22-29); Chloride 104 mmol/L (96-108); Creatinine Clr Calc Pharmacy 97.1; Estimated Glomerular Filt Rate > 60; Glucose Random 162 mg/dL (60-115); Potassium 3.4 mmol/L (3.3-5.1); Sodium 140 mmol/L (135-145); Total Protein 7.3 g/dL (6.5-8.0)
--- NOTE | 2023-10-31 01:22 | ED_ITS ---
HPI - General Adult General Chief complaint: General Medical Stated complaint: body aches Time Seen by Provider: 10/31/23 01:21 Source: patient and family () Mode of arrival: ambulatory Limitations: no limitations History of Present Illness HPI narrative: 73-year-old male with a history of diabetes, COPD, chronic pain syndrome, VIDA, lumbar radiculopathy, BPH, depression, arthritis, Crohn disease who presents emergency department for evaluation of severe, diffuse body pain. Patient states that he has had chronic pain for 20 years and was getting oxycodone 30 mg 4 times a day. He states that he was in a pain management clinic and the provider would no longer prescribe narcotics for him. He states that he has been off oxycodone for 4 months. He states that since stopping this medication he has not been able to walk secondary to the severity of his pain. States that over the last 24 hours he has had severe pain in his back, knees and hips. Patient states the pain is currently 10/10 so he came to the emergency department to try to get some relief. Related Data Home Medications Medication Instructions Recorded Confirmed latanoprost 0.005 % eye drops 1 drp ophthalmic (eye) QPM 11/17/21 03/31/23 timolol maleate 0.5 % eye drops 1 drp ophthalmic (eye) BID 11/17/21 03/31/23 brimonidine 0.2 % eye drops 0 drp ophthalmic (eye) 05/18/23 Previous Rx's Medication Instructions Recorded insulin syringe,safetyneedle 0.3 #100 ea 09/28/21 mL 29 gauge x 1/2 pen needle, diabetic 32 gauge x #100 ea 04/09/22 5/16 (Comfort EZ Pen [place]) fluticasone propionate 115 2 puff inhalation BID ASTHMA/COPD 06/15/22 mcg-salmeterol 21 mcg/actuation 30 days #12 grams HFA inhaler (Advair HFA) albuterol sulfate 90 mcg/actuation 2 puff inhalation Q4-6H PRN for 11/03/22 aerosol inhaler wheezing #1 ea hydroxyzine HCl 25 mg tablet 25 mg PO BID PRN Opioid withdrawal 04/06/23 30 days #60 tabs tizanidine 2 mg tablet 2 mg PO TID PRN opioid withdrawal 04/06/23 30 days #90 tabs albuterol sulfate 2.5 mg/3 mL 2.5 mg (3 mL) inhalation Q4-6H PRN 04/23/23 (0.083 %) solution for nebulization shortness of breath or wheezing #90 mL ipratropium 0.5 mg-albuterol 3 mg 3 ml inhalation QID COPD, SEVERE 05/24/23 (2.5 mg base)/3 mL nebulization 30 days #360 mL soln chlorthalidone 25 mg tablet 25 mg PO QAM #90 tabs 05/27/23 metoprolol succinate 50 mg 50 mg PO DAILY #90 tabs 05/27/23 tablet,extended release 24 hr pantoprazole 20 mg tablet,delayed 20 mg PO DAILY #90 tabs 05/27/23 release venlafaxine 75 mg tablet 75 mg PO .COMPLEX #270 tabs 08/04/23 insulin glargine 100 unit/mL (3 35 unit (0.35 mL) subcut QPM 30 09/21/23 mL) subcutaneous pen (Lantus days #10.5 mL Solostar U-100 Insulin) insulin lispro 100 unit/mL 20 unit (0.2 mL) subcut TID 30 09/21/23 subcutaneous pen (Humalog KwikPen days #18 mL (U-100) Insulin) clonazepam 0.5 mg tablet 0.5 mg PO BEDTIME #30 tabs 10/20/23 oxycodone 5 mg tablet 5 mg PO TID PRN pain #15 tabs 10/31/23 Allergies Allergy/AdvReac Type Severity Reaction Status Date / Time hydrocortisone Allergy Severe SWELLING Verified 09/16/23 15:35 [HYDROCORTISONE] NSAIDS (Non-Steroidal Allergy Severe BLEEDING Verified 09/16/23 15:35 Anti-Inflamma [NSAIDS (NON-STEROIDAL ANTI-INFLAMMA] aspirin Allergy Unknown bleeding Verified 09/16/23 15:35 doxycycline AdvReac Severe in-effectiv Verified 09/16/23 15:35 e Review of Systems 2 Review of Systems: Yes all other systems are reviewed and are negative PMFSH Past Medical History Medical History Class 2 severe obesity with body mass index (BMI) of 35 to 39.9 with serious comorbidity Bilateral primary osteoarthritis of knee Osteoarthritis of right knee Diabetes mellitus type 2, uncontrolled COPD exacerbation Arthritis of both knees Chronic pain syndrome Allergic rhinitis VIDA on CPAP COPD (chronic obstructive pulmonary disease) Lumbar radiculopathy Allergic rhinitis Asthma Benign prostatic hyperplasia Back pain Sleep apnea HTN (hypertension) Lumbar spondylosis Tendon tear Depression Arthritis Asthma Crohn disease Surgical History H/O colonoscopy Family History Family History Father No problems noted. Mother No problems noted. Social History Social History Housing: House Alcohol intake: never Comment: pain 3-4 left knee and buttock Patient Tobacco Use Status: Former Tobacco user e-Cigarette/Vaping Use: Never Used Second Hand Smoke Exposure: No Advance Directives: No Advance Directives Information Provided: Yes service: No Current occupational status: retired Cognitive needs: Yes (cane) Hearing needs: No Vision needs: Yes (Glasses) Physical Exam ED Vital Signs: Vital Signs - 24 hr 10/30/23 23:05 Temperature 98.0 F Pulse Rate 75 Respiratory Rate 17 Blood Pressure 121/78 Pulse Oximetry 95 Oxygen Delivery Method Room Air BMI result Body Mass Index 36.5 Vital signs were normal Exam: General: Awake, patient appears to be in distress secondary to his pain Head: Normocephalic, atraumatic EENT: PERRL, Lids normal, sclera normal, conjunctiva normal, nose normal , ears normal, throat without erythema or exudates Neck: Supple, no adenopathy, no trachea midline or C-spine tenderness Lung: breath sounds symmetric, no wheezing, rales or rhonchi Chest: symmetric movement, nontender Heart: regular rate and rhythm, normal S1, S2 no murmurs or rubs Abdomen: soft, non-tender, nondistended, normal bowel sounds Back: no vertebral tenderness, no CVAT Extremities: Patient has pain with minimal movement of his upper and lower extremities both passively and actively Medical Decision Making Medical Decision Making MDM Narrative: 73-year-old male with a history of diabetes, COPD, chronic pain syndrome, VIDA, lumbar radiculopathy, BPH, depression, arthritis, Crohn disease who presents emergency department for evaluation of severe, diffuse body pain. Patient has a history of chronic pain syndrome and his pain management provider stop prescribing opiates 4 months prior since that time he has been in severe pain. States his pain and I was severe and he had to come to the emergency department to get some relief. Physical examination did reveal pain with movement of the extremities otherwise was unremarkable. Following evaluation was ordered: CBC, CMP, urinalysis Patient was treated with oxycodone 15 mg orally 01:43 My interpretation patient's laboratory evaluation is as follows: CBC was normal. Glucose elevated 162. Alk-phos elevated 124. Urinalysis not collected Patient was given a prescription for oxycodone 5 mg 3 times a day for 5 days. I told him that we would not be able to refill this prescription from the emergency department and he will need to talk to his pain management doctor and his primary care provider to try to control his chronic pain. He was given printed and verbal instructions and discharged home Differential Diagnosis Differential Diagnoses: The differential diagnosis associated with the presentation includes Diagnosis includes was not limited to arthritis, chronic pain syndrome Lab Data MDM Lab Attestation statement: I reviewed the patient's lab results. 10/30/23 23:45 10/30/23 23:45 Labs: Lab Results 10/30/23 Range/Units 23:45 WBC 6.6 (4.8-10.8) X10*3/uL RBC 5.68 (4.60-5.80) X10*6/uL Hgb 15.5 (14.0-18.0) g/dl Hct 45.5 (42.0-52.0) % MCV 80.1 (80.0-98.0) fL MCH 27.3 (27.0-33.0) pg MCHC 34.1 (31.0-36.0) g/dl RDW 14.6 (11.0-16.0) % Plt Count 307 D (160-400) X10*3/uL MPV 10.5 (9.4-12.4) fL Immature Gran % (Auto) 0.3 (0.0-0.4) % Neut % (Auto) 64.3 (45-73) % Lymph % (Auto) 26.4 (20-40) % Saline % (Auto) 7.1 (2-11) % Eos % (Auto) 1.4 (0-4) % Baso % (Auto) 0.5 (0-2) % Lymph # (Auto) 1.7 (1.2-4.9) X10*3/uL Saline # (Auto) 0.5 (0.1-1.2) X10*3/uL Eos # (Auto) 0.1 (0.0-0.4) X10*3/uL Baso # (Auto) 0.0 (0.0-0.2) X10*3/uL Abs Immat Gran (auto) 0.02 (0.00-0.03) X10*3/uL Absolute Neuts (auto) 4.3 (2.0-8.3) x10*3/uL Absolute Nucleated RBC 0.000 (0.0-0.012) X10*3/uL Nucleated RBC % (auto) 0.0 (0.0-0.2) /100WBC Sodium 140 (135-145) mmol/L Potassium 3.4 (3.3-5.1) mmol/L Chloride 104 (96-108) mmol/L Carbon Dioxide 27 (22-29) mmol/L Anion Gap 12 (12-20) BUN 16 (9-16) mg/dL Creatinine 0.81 (0.5-1.4) mg/dL Estim Creat Clear Calc 97.1 Estimated GFR > 60 Random Glucose 162 H (60-115) mg/dL Calcium 10.2 (8.4-10.2) mg/dL Total Bilirubin 0.6 (0.0-1.0) mg/dL AST 16 (5-37) U/L ALT 15 (0-40) U/L Alkaline Phosphatase 124 H (39-117) U/L Total Protein 7.3 (6.5-8.0) g/dL Albumin 3.9 (3.5-5.0) g/dL Independent Historian Clinical information obtained from an independent historian. History obtained from or confirmed by: Spouse Prescription Management I considered prescription management with: Pain Medication Discharge Plan Discharge Clinical Impression: Chronic pain syndrome Patient Disposition: Home, Self-Care Additional Instructions: Take oxycodone 5 mg pills, 1 pill every 3 times a day as needed for pain. Do not drive or work while taking this medication since they can cause sleepiness. Oxycodone is a narcotic medication that can be addicting. If you are concerned about addiction you can ask the pharmacist for less pills or do not get this prescription filled. I can only give you a 5 day supply of this medication. This medication will not be refilled by the emergency department You will need to follow-up with your pain management provider and your primary care provider to try to help with your chronic pain syndrome. Follow-up with your doctor in 2 days. Please return to the emergency department if your symptoms get worse or if you develop any symptoms that are concerning to you. Prescriptions: New oxycodone 5 mg tablet 5 mg PO TID PRN (Reason: pain) Qty: 15 0RF Rx Instructions: Patient may request partial fill; Partial Fill upon patient request. No Action (DME) insulin syringe,safetyneedle 0.3 mL 29 x 1/2 syringe See Rx Instructions .Route Qty: 100 0RF Rx Instructions: As directed (DME) Comfort EZ Pen [place] 32 gauge x 5/16 needle See Rx Instructions .Route Qty: 100 0RF Rx Instructions: Use 3 times daily with insulin albuterol sulfate 90 mcg/actuation HFA aerosol inhaler 2 puff inhalation Q4-6H PRN (Reason: for wheezing) Qty: 1 2RF pantoprazole 20 mg tablet,delayed release (DR/EC) 20 mg PO DAILY Qty: 90 1RF metoprolol succinate 50 mg tablet extended release 24 hr 50 mg PO DAILY Qty: 90 1RF chlorthalidone 25 mg tablet 25 mg PO QAM Qty: 90 1RF venlafaxine 75 mg tablet 75 mg PO .COMPLEX Qty: 270 0RF Rx Instructions: 75 mg PO 2 tabs in the morning, one tab at night.; insulin glargine [Lantus Solostar U-100 Insulin] 100 unit/mL (3 mL) insulin pen 35 unit subcut QPM 30 Days Qty: 10.5 1RF insulin lispro [Humalog KwikPen Insulin] 100 unit/mL insulin pen 20 unit subcut TID 30 Days Qty: 18 1RF clonazepam 0.5 mg tablet 0.5 mg PO BEDTIME Qty: 30 0RF Rx Instructions: administer 30 minutes before bedtime albuterol sulfate 2.5 mg /3 mL (0.083 %) solution for nebulization 2.5 mg inhalation Q4-6H PRN (Reason: shortness of breath or wheezing) Qty: 90 0RF timolol maleate 0.5 % drops 1 drp ophthalmic (eye) BID latanoprost 0.005 % drops 1 drp ophthalmic (eye) QPM Advair HFA 115-21 mcg/actuation HFA aerosol inhaler 2 puff inhalation BID 30 Days Qty: 12 3RF tizanidine 2 mg tablet 2 mg PO TID MDD 3 pills a day PRN (Reason: opioid withdrawal) 30 Days Qty: 90 6RF hydroxyzine HCl 25 mg tablet 25 mg PO BID PRN (Reason: Opioid withdrawal) 30 Days Qty: 60 6RF brimonidine 0.2 % drops 0 drp ophthalmic (eye) ipratropium-albuterol 0.5 mg-3 mg(2.5 mg base)/3 mL solution for nebulization 3 ml inhalation QID 30 Days Qty: 360 3RF
[2023-10-31] MEDS: oxyCODONE HCl Immed Release 15 MG TABLET PO (02:03)
== END 2023-10-31 02:16 | disposition home or self-care (01) ==
PROVIDERS: Emergency Provider Emergency Medicine Emergency Medical Services
DX: G89.4 Chronic pain syndrome (principal); E11.9 Type 2 diabetes mellitus without complications; I10 Essential (primary) hypertension; J44.9 Chronic obstructive pulmonary disease, unspecified; Z79.891 Long term (current) use of opiate analgesic
CPT/HCPCS: 36415; 80053; 85025; 99283; 99284

== ENCOUNTER 2023-11-09 13:37 | Outpatient (AMB) | payer MEDICARE, SELFPAY ==
--- NOTE | 2023-11-09 13:50 | MHC.OFFVIS ---
Intake Vital Signs 11/09/23 13:51 Height 5 ft 8 in Weight 239 lb 3.225 oz BMI 36.4 BP 130/70 Blood Pressure Location Lt brachial Position Sitting Pulse 68 Pulse Source Pulse Oximeter Pulse Oximetry (%) 96 Oxygen Delivery Method Room Air Intake Visit Reasons: Asthma Intake Note: pt is here for follow up and states his breathing isokay, he does not sleep due to pain all over, stomach and back all over. Locomotive Driver Required: No Allergies hydrocortisone [HYDROCORTISONE] Allergy (Severe, Verified 11/09/23 14:17) SWELLING NSAIDS (Non-Steroidal Anti-Inflamma [NSAIDS (NON-STEROIDAL ANTI-INFLAMMA] Allergy (Severe, Verified 11/09/23 14:17) BLEEDING aspirin Allergy (Unknown, Verified 11/09/23 14:17) bleeding doxycycline Adverse Reaction (Severe, Verified 11/09/23 14:17) in-effective Medication List - Last Reconciled 11/09/23 by Pepe Rojas MD albuterol sulfate 2.5 mg (3 mL) inhalation Q4-6H PRN albuterol sulfate 90 mcg/actuation 2 puffs inhalation Q4-6H PRN brimonidine 0.2% 0 drps ophthalmic (eye) chlorthalidone 25 mg PO QAM clonazepam 0.5 mg PO BEDTIME hydroxyzine HCl 25 mg PO BID PRN 30 days insulin glargine (Lantus Solostar U-100 Insulin) 35 units (0.35 mL) subcut QPM 30 days insulin lispro (Humalog KwikPen (U-100) Insulin) 20 units (0.2 mL) subcut TID 30 days insulin syringe,safetyneedle As directed ipratropium-albuterol 0.5 mg-3 mg(2.5 mg base)/3 mL 3 mL inhalation QID 30 days latanoprost 0.005% 1 drp ophthalmic (eye) QPM metoprolol succinate ER 50 mg PO DAILY pantoprazole 20 mg PO DAILY pen needle, diabetic (Comfort EZ Pen [place]) Use 3 times daily with insulin timolol maleate 0.5% 1 drp ophthalmic (eye) BID tizanidine 2 mg PO TID PRN 30 days MDD 3 pills a day venlafaxine 75 mg PO 2 tabs in the morning, one tab at night.; Do you need a note to return to daycare/school/sports/work: No HPI Asthma HPI Details THIS 73 YEARS OLD GENTLEMAN IS HERE FOR FOLLOW-UP AFTER 4 MONTHS. HE HAS BRONCHIAL ASTHMA/COPD WHICH IS REMAINS UNDER GOOD CONTROL. MILD COUGH OFF AND ON, GETS SHORT OF BREATH ON WALKING AROUND OR CLIMBING STAIRS. HOWEVER HIS WALKING IS GENERALLY SLOW BECAUSE OF HIS BACK ACHE AND GENERALIZED ARTHRITIS. MOST OF HIS COMPLAINT IS THAT OF GENERALIZED PAIN AND IT DOES NOT ALLOW HIM TO SLEEP WELL. FAR SLEEP APNEA IS CONCERNED THAT IS WELL CONTROLLED WITH THE USE OF CPAP. HE USES CPAP VERY REGULARLY EVERY NIGHT. [facility] Medical History Class 2 severe obesity with body mass index (BMI) of 35 to 39.9 with serious comorbidity Bilateral primary osteoarthritis of knee Osteoarthritis of right knee Diabetes mellitus type 2, uncontrolled COPD exacerbation Arthritis of both knees Chronic pain syndrome Allergic rhinitis VIDA on CPAP COPD (chronic obstructive pulmonary disease) Lumbar radiculopathy Allergic rhinitis Asthma Benign prostatic hyperplasia Back pain Sleep apnea HTN (hypertension) Lumbar spondylosis Tendon tear Depression Arthritis Asthma Crohn disease Surgical History H/O colonoscopy Family History Father No problems noted. Mother No problems noted. Social History Housing: House Alcohol intake: never Comment: pain 3-4 left knee and buttock Patient Tobacco Use Status: Former Tobacco user e-Cigarette/Vaping Use: Never Used Second Hand Smoke Exposure: No service: No Current occupational status: retired Cognitive needs: Yes (cane) Hearing needs: No Vision needs: Yes (Glasses) Review of Systems Const All systems reviewed & are unremarkable except as noted in HPI and below Eyes Reports no additional complaints ENT Reports nasal congestion and Reports nasal discharge (Postnasal discharge off and on) Card Denies chest pain, Denies irregular heart rhythm and Denies dyspnea on exertion Resp Reports as per HPI and Denies dyspnea on exertion GI Reports heartburn (Symptoms of GERD or controlled) Reports no additional complaints Musc Reports back pain, Reports myalgias and Reports arthralgias Skin/Breast Reports system reviewed and no additional complaints, except as documented Neuro Reports no additional complaints Psych Reports no additional complaints Physical Exam Vital Signs: Last Vital Signs Pulse 68 11/09/23 13:51 BP 130/70 11/09/23 13:51 Pulse Ox 96 11/09/23 13:51 Oxygen Delivery Method Room Air 11/09/23 13:51 BMI result Body Mass Index 36.4 Const Other: HE LOOKS OVERWEIGHT, TIRED AND SOMEWHAT DEPRESSED. General: comfortable, no acute distress, alert and awake Orientation/consciousness: patient oriented x3 HEENT Head: Yes normal to inspection General nose exam: No nasal polyps present and No nasal discharge present Face and sinus: Yes sinuses nontender Mouth: oropharynx normal Throat: Yes posterior oropharynx normal Eyes General: appearance normal, both eyes and all related structures Neck Neck: Yes normal visual inspection, Yes no lymphadenopathy, Yes trachea midline and Yes no JVD Thyroid: Thyroid normal Chest Chest palpation & inspection: normal inspection of the chest, normal palpation of entire chest wall and no tenderness Resp Other: PERCUSSION NOTE RESONANT, BREATH SOUNDS ARE VERY DISTANT, WITH PROLONGED EXPIRATORY PHASE. NO WHEEZES OR CREPITATIONS ARE HEARD TODAY. Cardio Palpation: normal PMI Rate: regular rate Rhythm: regular rhythm Heart sounds: no gallops and no murmurs GI Palpation (GI): Soft to palpation, nontender, No hepatosplenomegaly present, no masses and Other GI palpation findings present (ABDOMEN IS MODERATELY PROTUBERANT) Auscultation: normal bowel sounds Back/Spine/Pelvis Thoracic/Lumbar Spine: thoracic and lumbar spine normal to inspection, thoraco-lumbar ROM limited and thoraco-lumbar spasm Skin General skin exam: no rashes or lesions noted Neuro General: patient oriented x3 and no focal motor deficits Cranial nerves: Yes CN's II-XII intact bilaterally Extrem General: Yes normal to inspection, No no joint enlargement (BOTH KNEES ARE SLIGHTLY ENLARGED AND PAINFUL), Yes no clubbing, cyanosis or edema, Yes no calf tenderness and Yes normal gait (NEEDS A CANE) Psych Appearance: grossly normal Speech and movement: Normal speech and movement present Assessment & Plan Assessment & Plan (1) COPD (chronic obstructive pulmonary disease): Comment: THIS GENTLEMAN HAS CHRONIC, MODERATELY SEVERE, ASTHMA/COPD OVERLAP SYNDROME. HE IS STABLE AT THIS TIME. Code(s): J44.9 - Chronic obstructive pulmonary disease, unspecified Plan: TX : IPRATROPIUM/ALBUTEROL 3 ML IN NEBULIZER Q 6 HOURS WHILE AWAKE. AND HE CAN USE HIS ALBUTEROL HFA 2 PUFFS Q 4-6 HOURS P.R.N. WHEN OUTDOORS. ALSO CONTINUE ADVAIR HFA 115-212 PUFFS B.I.D. (2) Allergic rhinitis: Comment: He has chronic allergic rhinitis, remains controlled with p.r.n. use of loratadine. Code(s): J30.9 - Allergic rhinitis, unspecified Plan: Advised to continue using Flonase 1 spray each nostril b.i.d. May also use Loratadine 10 mg once a day PRN . (3) VIDA on CPAP: Comment: THIS GENTLEMAN HAS OBSTRUCTIVE SLEEP APNEA FOR MANY YEARS, HAS BEEN USING HIS CPAP VERY. REGULARLY AT NIGHT HE JUST GOT A NEW REPLACEMENT UNIT AND IS DOING WELL . Code(s): G47.33 - Obstructive sleep apnea (adult) (pediatric); Z99.89 - Dependence on other enabling machines and devices Plan: CONTINUE TO USE CPAP REGULARLY EVERY NIGHT. Coding Level of Care Code Est Pt Level 3 (49953) Diagnoses COPD (chronic obstructive pulmonary disease) J44.9 Allergic rhinitis J30.9 VIDA on CPAP G47.33; Z99.89
[2023-11-09 13:51] VITALS: BP 130/70; PULSE 68; O2SAT 96; BMI 36.4
== END 2023-11-09 14:18 | disposition home or self-care (01) ==
PROVIDERS: PCP Internal Medicine; Visit Provider Internal Medicine
DX: J44.9 Chronic obstructive pulmonary disease, unspecified (principal); J30.9 Allergic rhinitis, unspecified; G47.33 Obstructive sleep apnea (adult) (pediatric); Z99.89 Dependence on other enabling machines and devices
CPT/HCPCS: 99213

== ENCOUNTER → 2023-11-09 13:37 | Outpatient (BNVA) | payer MEDICARE, SELFPAY | PROVIDERS: Visit Provider Internal Medicine | DX: J44.9 Chronic obstructive pulmonary disease, unspecified (principal); J30.9 Allergic rhinitis, unspecified; G47.33 Obstructive sleep apnea (adult) (pediatric); Z99.89 Dependence on other enabling machines and devices | CPT/HCPCS: 99212 ==

== ENCOUNTER 2024-01-01 20:21 | Emergency (ER) | payer MEDICARE, SELFPAY ==
[2024-01-01 20:36] VITALS: BP 123/82; PULSE 80; RESP 22; TEMP 36.9; O2SAT 100; BMI 35.5
[2024-01-01 21:25] VITALS: BP 161/68; PULSE 70; RESP 18; TEMP 36.4; O2SAT 98
--- NOTE | 2024-01-01 21:28 | PC.NURSE ---
Pt aox4, restless at the bedside. Reports not taking antidepression medication since last wed as doctor went on vacation and pt ran out. Pt is restless, anxious, reporting a headache that bagan 5 to 10 minutes ago. VSS. Breaths are even regular and unlabored. Pending physician evaluation.
--- NOTE | 2024-01-01 21:52 | ED.GENADULT ---
HPI - General Adult General Chief complaint: Psychiatric Symptoms Stated complaint: depression meds, missed dose- trembles Time Seen by Provider: 01/01/24 21:29 Source: patient Mode of arrival: ambulatory Limitations: no limitations History of Present Illness HPI narrative: 73 yold male with pmh of depression presents to the ED for withdrawal symptoms from not having his venlafaxine since tuesday. Patient states his primary care provider did not refill his prescription. Patient states he has had withdrawal symptoms of missing venlafaxine in the past. Patient's states headache, nausea, vomiting, body aches, tremors Related Data Home Medications Medication Instructions Recorded Confirmed latanoprost 0.005 % eye drops 1 drp ophthalmic (eye) QPM 11/17/21 11/09/23 timolol maleate 0.5 % eye drops 1 drp ophthalmic (eye) BID 11/17/21 11/09/23 brimonidine 0.2 % eye drops 0 drp ophthalmic (eye) 05/18/23 11/09/23 Previous Rx's Medication Instructions Recorded insulin syringe,safetyneedle 0.3 #100 ea 09/28/21 mL 29 gauge x 1/2 pen needle, diabetic 32 gauge x #100 ea 04/09/22 5/16 (Comfort EZ Pen [place]) albuterol sulfate 90 mcg/actuation 2 puff inhalation Q4-6H PRN for 11/03/22 aerosol inhaler wheezing #1 ea hydroxyzine HCl 25 mg tablet 25 mg PO BID PRN Opioid withdrawal 04/06/23 30 days #60 tabs tizanidine 2 mg tablet 2 mg PO TID PRN opioid withdrawal 04/06/23 30 days #90 tabs albuterol sulfate 2.5 mg/3 mL 2.5 mg (3 mL) inhalation Q4-6H PRN 04/23/23 (0.083 %) solution for nebulization shortness of breath or wheezing #90 mL ipratropium 0.5 mg-albuterol 3 mg 3 ml inhalation QID COPD, SEVERE 05/24/23 (2.5 mg base)/3 mL nebulization 30 days #360 mL soln venlafaxine 75 mg tablet 75 mg PO .COMPLEX #270 tabs 08/04/23 insulin glargine 100 unit/mL (3 35 unit (0.35 mL) subcut QPM 30 09/21/23 mL) subcutaneous pen (Lantus days #10.5 mL Solostar U-100 Insulin) insulin lispro 100 unit/mL 20 unit (0.2 mL) subcut TID 30 09/21/23 subcutaneous pen (Humalog KwikPen days #18 mL (U-100) Insulin) clonazepam 0.5 mg tablet 0.5 mg PO BEDTIME #30 tabs 11/24/23 chlorthalidone 25 mg tablet 25 mg PO QAM #90 tabs 11/25/23 metoprolol succinate 50 mg 50 mg PO DAILY #90 tabs 11/25/23 tablet,extended release 24 hr pantoprazole 20 mg tablet,delayed 20 mg PO DAILY #90 tabs 11/25/23 release venlafaxine 75 mg tablet 75 mg PO BID 7 days #28 tabs 01/02/24 Allergies Allergy/AdvReac Type Severity Reaction Status Date / Time hydrocortisone Allergy Severe SWELLING Verified 01/01/24 20:35 [HYDROCORTISONE] NSAIDS (Non-Steroidal Allergy Severe BLEEDING Verified 01/01/24 20:35 Anti-Inflamma [NSAIDS (NON-STEROIDAL ANTI-INFLAMMA] aspirin Allergy Unknown bleeding Verified 01/01/24 20:35 doxycycline AdvReac Severe in-effectiv Verified 01/01/24 20:35 e Review of Systems Review of Systems: Withdrawal symptoms venlafaxine Yes all other systems are reviewed and are negative COUNTS INCLUDE 234 BEDS AT THE [facility] Past Medical History Medical History Class 2 severe obesity with body mass index (BMI) of 35 to 39.9 with serious comorbidity Bilateral primary osteoarthritis of knee Osteoarthritis of right knee Diabetes mellitus type 2, uncontrolled COPD exacerbation Arthritis of both knees Chronic pain syndrome Allergic rhinitis VIDA on CPAP COPD (chronic obstructive pulmonary disease) Lumbar radiculopathy Allergic rhinitis Asthma Benign prostatic hyperplasia Back pain Sleep apnea HTN (hypertension) Lumbar spondylosis Tendon tear Depression Arthritis Asthma Crohn disease Surgical History H/O colonoscopy Family History Family History Father No problems noted. Mother No problems noted. Social History Social History Housing: House Alcohol intake: never Comment: pain 3-4 left knee and buttock Patient Tobacco Use Status: Former Tobacco user Smoked in Last 30 Days: No e-Cigarette/Vaping Use: Never Used Second Hand Smoke Exposure: No Use of substances other than those prescribed or required for medical reasons: No Advance Directives: Yes Advance Directives on File: Yes Advance Directives Date on File: 09/16/23 service: No Current occupational status: retired Cognitive needs: Yes (cane) Hearing needs: No Vision needs: Yes (Glasses) Physical Exam ED Vital Signs: Vital Signs - 24 hr 01/01/24 20:36 01/01/24 21:25 Temperature 98.5 F 97.6 F Pulse Rate 80 70 Respiratory Rate 22 H 18 Blood Pressure 123/82 161/68 H Pulse Oximetry 100 98 Oxygen Delivery Method Room Air Room Air BMI result Body Mass Index 35.5 Const General: cooperative, healthy appearing, comfortable, no acute distress, well developed, alert, awake and Physically active Orientation/consciousness: oriented to person, oriented to place, oriented to time and patient oriented x3 HENMT Head: Yes normal to inspection, Yes No palpable skull fracture present, Yes normocephalic, Yes atraumatic and No abrasion Ears: hearing grossly normal bilaterally, external ears normal, TM's normal bilaterally, TM normal on the right, TM normal on the left, EAC's normal, mastoids normal and no periauricular adenopathy Throat: Yes posterior oropharynx normal, Yes tonsils normal and Yes uvula midline Eyes General: appearance normal, both eyes and all related structures Neck Neck: Yes normal visual inspection, Yes full ROM, Yes no lymphadenopathy, Yes no meningeal signs, Yes trachea midline, Yes supple, No anterior neck swelling and No tender Chest Chest palpation & inspection: normal inspection of the chest and normal palpation of entire chest wall Resp Effort & Inspection: normal respiratory effort and able to speak in complete sentences Auscultation: clear to auscultation bilaterally Cardio Jugular venous distension: no JVD Heart sounds: S1 normal heart sound present and S2 normal heart sound present GI Inspection: Yes normal to inspection Palpation (GI): Soft to palpation, not firm, nontender, no guarding and not rigid General: Yes no CVA tenderness Back/Spine/Pelvis Back: no CVA tenderness and No back tenderness Skin General skin exam: no rashes or lesions noted, elasticity normal and turgor normal Neuro Other: some tremors. General: oriented to person, oriented to place, oriented to time, patient oriented x3, gait normal, tone normal, moves all extremities, Normal light touch and pain sensation, no meningeal signs, no focal motor deficits, CN's II-XI intact bilaterally and normal sensation to monofilament Extrem General: Yes normal to inspection, Yes full ROM and Yes capillary refill normal Psych Appearance: grossly normal, well kempt and not disheveled Medications Administered Discontinued Medications Generic Name Dose Route Start Last Admin Trade Name Sudhakar PRN Reason Stop Dose Admin Venlafaxine HCl 150 mg 01/01/24 21:48 01/01/24 22:40 Venlafaxine Hcl 25 Mg Tablet PO 01/01/24 21:49 150 mg ONCE ONE Administration Medical Decision Making Medical Decision Making MDM Narrative: 70 yold male history of depression presents to ED for withdrawal symptoms due to not being able to have been vanlafaxine since Tuesday. His primary care provider went on vacation and did not have any refill. Patient states having this presentation before from not having his venlafaxine. Venlafaxine ordered. 12:18am: uptodate confirms and states sudden stoppage of SSRIS can cause discontinuation syndrome which leads to headache, nausea, bodyaches, tremors, and agitation. Patient symptoms resolved after receiving venlafaxine. Patient states he takes venlafaxine 75 mg 2 pills b.i.d.. No further medical intervention needed. Patient given prescription of meds Differential Diagnosis Differential Diagnoses: The differential diagnosis associated with the presentation includes (Discontinuation syndrome. Withdrawal) Admission/Observation Consideration of admission/observation: Escalation of care including admission/observation considered Independent Historian Clinical information obtained from an independent historian. 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 Return to the ED for any headache, nausea, vomiting, chills, chest pain, shortness of breath, abdominal pain, or any other concerning symptoms. Prescriptions: New venlafaxine 75 mg tablet 75 mg PO BID 7 Days Qty: 28 0RF Rx Instructions: Take two tabs in the morning and two tabs at night No Action (DME) insulin syringe,safetyneedle 0.3 mL 29 x 1/2 syringe See Rx Instructions .Route Qty: 100 0RF Rx Instructions: As directed (DME) Comfort EZ Pen [place] 32 gauge x 5/16 needle See Rx Instructions .Route Qty: 100 0RF Rx Instructions: Use 3 times daily with insulin albuterol sulfate 90 mcg/actuation HFA aerosol inhaler 2 puff inhalation Q4-6H PRN (Reason: for wheezing) Qty: 1 2RF venlafaxine 75 mg tablet 75 mg PO .COMPLEX Qty: 270 0RF Rx Instructions: 75 mg PO 2 tabs in the morning, one tab at night.; insulin glargine [Lantus Solostar U-100 Insulin] 100 unit/mL (3 mL) insulin pen 35 unit subcut QPM 30 Days Qty: 10.5 1RF insulin lispro [Humalog KwikPen Insulin] 100 unit/mL insulin pen 20 unit subcut TID 30 Days Qty: 18 1RF clonazepam 0.5 mg tablet 0.5 mg PO BEDTIME Qty: 30 0RF Rx Instructions: administer 30 minutes before bedtime metoprolol succinate 50 mg tablet extended release 24 hr 50 mg PO DAILY Qty: 90 1RF pantoprazole 20 mg tablet,delayed release (DR/EC) 20 mg PO DAILY Qty: 90 1RF chlorthalidone 25 mg tablet 25 mg PO QAM Qty: 90 1RF albuterol sulfate 2.5 mg /3 mL (0.083 %) solution for nebulization 2.5 mg inhalation Q4-6H PRN (Reason: shortness of breath or wheezing) Qty: 90 0RF timolol maleate 0.5 % drops 1 drp ophthalmic (eye) BID latanoprost 0.005 % drops 1 drp ophthalmic (eye) QPM tizanidine 2 mg tablet 2 mg PO TID MDD 3 pills a day PRN (Reason: opioid withdrawal) 30 Days Qty: 90 6RF hydroxyzine HCl 25 mg tablet 25 mg PO BID PRN (Reason: Opioid withdrawal) 30 Days Qty: 60 6RF brimonidine 0.2 % drops 0 drp ophthalmic (eye) ipratropium-albuterol 0.5 mg-3 mg(2.5 mg base)/3 mL solution for nebulization 3 ml inhalation QID 30 Days Qty: 360 3RF Interventions: [place]-Suicide Risk Severity Scale Last Done: 01/01/24 21:26 Print Language: Hebrew
[2024-01-01] MEDS: Venlafaxine HCL 25 MG TABLET 150 MG PO (22:40)
== END 2024-01-01 23:00 | disposition home or self-care (01) ==
PROVIDERS: Emergency Provider Internal Medicine; PCP Internal Medicine
DX: F33.1 Major depressive disorder, recurrent, moderate (principal); Z91.A3 Caregiver's unintentional underdosing of patient's medication regimen; Z79.899 Other long term (current) drug therapy
CPT/HCPCS: 99283; 99284

== ENCOUNTER 2024-01-11 15:09 | Outpatient (AMB) | payer MEDICARE, SELFPAY ==
--- NOTE | 2024-01-11 15:14 | A.OFFPC_ITS ---
Vital Signs 01/11/24 15:18 Height 5 ft 8 in Weight 229 lb 2 oz BMI 34.8 BP 110/68 Blood Pressure Location Lt brachial Position Sitting Pulse 78 Pulse Source Pulse Oximeter Pulse Oximetry (%) 97 Oxygen Delivery Method Room Air Intake Visit Reasons: 3 mth f/u Intake Note: Patient is here to follow up on DM, COPD, VIDA, Asthma Tool And Gauge Inspector Required: No Visiting Professor: Not Required per policy Accompanied by: Self / Same As Patient Allergies hydrocortisone [HYDROCORTISONE] Allergy (Severe, Verified 01/11/24 16:52) SWELLING NSAIDS (Non-Steroidal Anti-Inflamma [NSAIDS (NON-STEROIDAL ANTI-INFLAMMA] Allergy (Severe, Verified 01/11/24 16:52) BLEEDING aspirin Allergy (Unknown, Verified 01/11/24 16:52) bleeding doxycycline Adverse Reaction (Severe, Verified 01/11/24 16:52) in-effective Medication List - Last Reconciled 01/11/24 by Hector Cherry MD albuterol sulfate 2.5 mg (3 mL) inhalation Q4-6H PRN albuterol sulfate 90 mcg/actuation 2 puffs inhalation Q4-6H PRN brimonidine 0.2% 0 drps ophthalmic (eye) chlorthalidone 25 mg PO QAM clonazepam 0.5 mg PO BEDTIME hydroxyzine HCl 25 mg PO BID PRN 30 days insulin glargine (Lantus Solostar U-100 Insulin) 40 units (0.4 mL) subcut QPM 30 days insulin lispro (Humalog KwikPen (U-100) Insulin) 20 units (0.2 mL) subcut TID 30 days insulin syringe,safetyneedle As directed ipratropium-albuterol 0.5 mg-3 mg(2.5 mg base)/3 mL 3 mL inhalation QID 30 days latanoprost 0.005% 1 drp ophthalmic (eye) QPM metoprolol succinate ER 50 mg PO DAILY pantoprazole 20 mg PO DAILY pen needle, diabetic (Comfort EZ Pen [place]) Use 3 times daily with insulin timolol maleate 0.5% 1 drp ophthalmic (eye) BID tizanidine 2 mg PO TID PRN 30 days MDD 3 pills a day venlafaxine 150 mg PO BID Tobacco use date assessed: 01/11/24 Fall risk assessment: No Falls in past year Last assessed Fall Risk: 01/11/24 Dental Screening Dental Screen Date: 01/11/24 Did you have a dental visit in the last 12 months?: No Did you have a dental problem in the last 6 months where you did not have access to dental care?: No Was dental information given to patient?: No HPI 3 mth f/u HPI Details 73-year-old male presents to the office to discuss his chronic medical conditions. Patient is reporting pain under the left foot. Recently he had seen a podia trist and was told he has neuropathy. Pain is present in the foot irrespective of weight-bearing. He has been ambulating along with a cane. Blood sugars are in range. He has requesting a refill on his depression medications. [facility] Medical History Class 2 severe obesity with body mass index (BMI) of 35 to 39.9 with serious comorbidity Bilateral primary osteoarthritis of knee Osteoarthritis of right knee Diabetes mellitus type 2, uncontrolled COPD exacerbation Arthritis of both knees Chronic pain syndrome Allergic rhinitis VIDA on CPAP COPD (chronic obstructive pulmonary disease) Lumbar radiculopathy Allergic rhinitis Asthma Benign prostatic hyperplasia Back pain Sleep apnea HTN (hypertension) Lumbar spondylosis Tendon tear Depression Arthritis Asthma Crohn disease Surgical History H/O colonoscopy Family History Father No problems noted. Mother No problems noted. Social History Housing: House Alcohol intake: never Comment: pain 3-4 left knee and buttock Patient Tobacco Use Status: Former Tobacco user e-Cigarette/Vaping Use: Never Used Second Hand Smoke Exposure: No Advance Directives Date on File: 09/16/23 service: No Current occupational status: retired Cognitive needs: Yes (cane) Hearing needs: No Vision needs: Yes (Glasses) Questionnaire PHQ-9 Over the last 2 weeks, how often have you been bothered by any of the following problems? 1. Little interest or pleasure in doing things: not at all 2. Feeling down, depressed, or hopeless: nearly every day 3. Trouble falling or staying asleep, or sleeping too much: nearly every day 4. Feeling tired or having little energy: several days 5. Poor appetite or overeating: several days 6. Feeling bad about yourself - or that you are a failure or have let yourself or your family down: not at all 7. Trouble concentrating on things, such as reading the newspaper or watching t elevision: more than half the days 8. Moving or speaking so slowly that other people could have noticed. Or the opposite - being so fidgety or restless that you have been moving around a lot more than usual: not at all 9. Thoughts that you would be better off or of hurting yourself in some way: several days Total score: 11 Depression Screening Interpretation: Positive Depression Screening Done: Yes Source: Developed by Drs. Santiago Schwartz, Ana María Deleon, Osbaldo Alexander and colleagues, with an educational jose de jesus from [employer]. Thrive Questionnaire Date Thrive assessed: 01/11/24 I am a: Patient What is your living situation today?: I have a steady place to live Within the past 12 months, did the food you bought not last and you didn't have the money to get more?: Never true Within the past 12 months, did you worry whether your food would run out before you got money to buy more?: Never true Do you have trouble paying for medicines?: No Do you have trouble getting transportation to medical appointments?: No Do you have trouble paying your heating and electricity bill?: No Do you have trouble taking care of your child, family member or friend?: No Do you have trouble with day-to-day activities such as bathing, preparing meals, shopping, managing finances, etc.?: No Are you currently unemployed and looking for a job?: No Are you interested in more education?: No Currently or been in a relationship where the following occur: no concerns reported THRIVE Score: 0 AUDIT C Alcohol Use Questionnaire (AUDIT-C) 1. How often do you have a drink containing alcohol?: Never Total Score: 0 ESTELLA-7 AMB Questionnaire ESTELLA-7 Date ESTELLA - 7 assessed: 01/11/24 Feeling nervous, anxious, or on edge: 2 = More than half the days Not being able to stop or control worryin = Several days Worrying too much about different things: 1 = Several days Trouble relaxin = More than half the days Being so restless that it is hard to sit still: 3 = Nearly every day Becoming easily annoyed or irritable: 3 = Nearly every day Feeling afraid as if something awful might happen: 2 = More than half the days Total ESTELLA-7 score (0-4 normal; 5-9 mild; 10-14 moderate; 15-21 severe): 14 Source: Developed by Drs. Santiago Schwartz, Ana María Deleon, Osbaldo Alexander and colleagues, with an educational jose de jesus from [employer]. Physical exam (Primary Care) Vital Signs: Last Vital Signs Pulse 78 01/11/24 15:18 BP 110/68 01/11/24 15:18 Pulse Ox 97 01/11/24 15:18 Oxygen Delivery Method Room Air 01/11/24 15:18 Care Plan Goal for BP management: Blood pressure is in range. BMI result Body Mass Index 34.8 Tobacco/Smoking Status: Tobacco use Status Tobacco use date assessed 01/11/24 01/11/24 15:31 Patient Tobacco Use Status Former Tobacco user 01/11/24 15:31 e-Cigarette/Vaping Use Never Used 01/11/24 15:31 PHQ-9: PHQ-9 Score PHQ-9: Total score 11 01/11/24 15:31 Depression Screening Interpretation: Positive Thrive Assessment: Date of Thrive Assessment Date Thrive assessed 01/11/24 01/11/24 15:31 Currently or been in a relationship where the following occur: no concerns reported Const General: cooperative and healthy appearing Nutritional Appearance: well nourished Orientation/consciousness: patient oriented x3 Limitations: no limitations HENMT Head: Yes normal to inspection Eyes General: appearance normal, both eyes and all related structures Neck Neck: Yes normal visual inspection Chest Chest palpation & inspection: normal palpation of entire chest wall Resp Effort & Inspection: normal respiratory effort Neuro General: patient oriented x3 Results AMB Hemoglobin A1c AMB Hemoglobin A1c 7.0 % Last Edit by CLAU Hamilton on 01/11/24 15:32 Results Reviewed Results Reviewed: Laboratory Last Values Hgb A1c (Clinic) 7.0 % (4.0-6.0) H 01/11/24 15:13 Assessment and Plan Assessment & Plan (1) Diabetes mellitus: Code(s): E11.9 - Type 2 diabetes mellitus without complications Plan: A1c is 7. Continue medications at same dosage. Antidepressants called in. Orders: Orders AMB Hemoglobin A1c Today E11.65 - Type 2 diabetes mellitus with hyperglycemia Medications: New venlafaxine 150 mg (2 x 75 mg) PO BID 360 tabs 0RF Changed From insulin glargine (Lantus Solostar U-100 Insulin) 35 units (0.35 mL) subcut QPM 30 days 10.5 mL 1RF E11.65 - Type 2 diabetes mellitus with hyperglycemia To insulin glargine (Lantus Solostar U-100 Insulin) 40 units (0.4 mL) subcut QPM 30 days 12 mL 1RF E11.65 - Type 2 diabetes mellitus with hyperglycemia Coding Level of Care Code Est Pt Level 3 (64618) Diagnoses Diabetes mellitus E11.9
[2024-01-11 15:18] VITALS: BP 110/68; PULSE 78; O2SAT 97; BMI 34.8
== END 2024-01-11 16:11 | disposition home or self-care (01) ==
PROVIDERS: PCP Internal Medicine; Visit Provider Internal Medicine
DX: E11.9 Type 2 diabetes mellitus without complications (principal); E11.65 Type 2 diabetes mellitus with hyperglycemia
CPT/HCPCS: 83036; 99213

== ENCOUNTER 2024-03-08 13:40 | Outpatient (AMB) | payer MEDICARE, SELFPAY ==
--- NOTE | 2024-03-08 13:48 | A.OFFVIS_ITS ---
Vital Signs 03/08/24 13:50 Height 5 ft 8 in Weight 230 lb 6.129 oz BMI 35.0 BP 110/62 Blood Pressure Location Lt brachial Position Sitting Pulse 70 Pulse Source Pulse Oximeter Pulse Oximetry (%) 92 Oxygen Delivery Method Room Air Intake Visit Reasons: Asthma Intake Note: pt is here for follow up and states he is feeling well Chronic Manager Required: No Allergies hydrocortisone [HYDROCORTISONE] Allergy (Severe, Verified 03/08/24 13:56) SWELLING NSAIDS (Non-Steroidal Anti-Inflamma [NSAIDS (NON-STEROIDAL ANTI-INFLAMMA] Allergy (Severe, Verified 03/08/24 13:56) BLEEDING aspirin Allergy (Unknown, Verified 03/08/24 13:56) bleeding doxycycline Adverse Reaction (Severe, Verified 03/08/24 13:56) in-effective Medication List - Last Reconciled 03/08/24 by Pepe Rojas MD albuterol sulfate 2.5 mg (3 mL) inhalation Q4-6H PRN albuterol sulfate 90 mcg/actuation 2 puffs inhalation Q4-6H PRN brimonidine 0.2% 0 drps ophthalmic (eye) chlorthalidone 25 mg PO QAM clonazepam 0.5 mg PO BEDTIME gabapentin (Neurontin) 100 mg PO TID hydroxyzine HCl 25 mg PO BID PRN 30 days insulin glargine (Lantus Solostar U-100 Insulin) 40 units (0.4 mL) subcut QPM 30 days insulin lispro (Humalog KwikPen (U-100) Insulin) 20 units (0.2 mL) subcut TID 30 days insulin syringe,safetyneedle As directed ipratropium-albuterol 0.5 mg-3 mg(2.5 mg base)/3 mL 3 mL inhalation QID 30 days latanoprost 0.005% 1 drp ophthalmic (eye) QPM metoprolol succinate ER 50 mg PO DAILY pantoprazole 20 mg PO DAILY pen needle, diabetic (Comfort EZ Pen [place]) Use 3 times daily with insulin pseudoephedrine HCl 30 mg PO Q4-6H PRN timolol maleate 0.5% 1 drp ophthalmic (eye) BID venlafaxine 150 mg (2 x 75 mg) PO BID Do you need a note to return to daycare/school/sports/work: No HPI HPI Asthma: Details: Solitario is 73 years old gentleman with moderate obesity and obstructive sleep apnea. He is also being treated for chronic obstructive pulmonary disease. Has chronic anxiety and depression which is well controlled as long as he stays on venlafaxine 75 mg 2 cap b.i.d. He uses his CPAP very regularly every night and sleeps fairly well but has to take clonazepam 0.5 mg at bedtime. COPD remains stable without any acute exacerbation because he is not a smoker. He uses albuterol solution in the [facility] Q 4-6 hours only as needed [facility] Medical History Class 2 severe obesity with body mass index (BMI) of 35 to 39.9 with serious comorbidity Bilateral primary osteoarthritis of knee Osteoarthritis of right knee Diabetes mellitus type 2, uncontrolled COPD exacerbation Arthritis of both knees Chronic pain syndrome Allergic rhinitis VIDA on CPAP COPD (chronic obstructive pulmonary disease) Lumbar radiculopathy Allergic rhinitis Asthma Benign prostatic hyperplasia Back pain Sleep apnea HTN (hypertension) Lumbar spondylosis Tendon tear Depression Arthritis Asthma Crohn disease Surgical History H/O colonoscopy Family History Father No problems noted. Mother No problems noted. Social History Housing: House Alcohol intake: never Comment: pain 3-4 left knee and buttock Patient Tobacco Use Status: Former Tobacco user e-Cigarette/Vaping Use: Never Used Second Hand Smoke Exposure: No Advance Directives Date on File: 09/16/23 service: No Current occupational status: retired Cognitive needs: Yes (cane) Hearing needs: No Vision needs: Yes (Glasses) Review of Systems Const All systems reviewed & are unremarkable except as noted in HPI and below Eyes Reports no additional complaints ENT Reports nasal congestion and Reports nasal discharge (Postnasal discharge off and on) Card Denies chest pain, Denies irregular heart rhythm and Denies dyspnea on exertion Resp Reports as per HPI and Denies dyspnea on exertion GI Reports heartburn (Symptoms of GERD or controlled) Reports no additional complaints Musc Reports back pain, Reports myalgias and Reports arthralgias Skin/Breast Reports system reviewed and no additional complaints, except as documented Neuro Reports no additional complaints Psych Reports no additional complaints Physical Exam Const Other: HE LOOKS OVERWEIGHT, TIRED AND SOMEWHAT DEPRESSED. General: comfortable, no acute distress, alert and awake Orientation/consciousness: patient oriented x3 HEENT Head: Yes normal to inspection General nose exam: No nasal polyps present and No nasal discharge present Face and sinus: Yes sinuses nontender Mouth: oropharynx normal Throat: Yes posterior oropharynx normal Eyes General: appearance normal, both eyes and all related structures Neck Neck: Yes normal visual inspection, Yes no lymphadenopathy, Yes trachea midline and Yes no JVD Thyroid: Thyroid normal Chest Chest palpation & inspection: normal inspection of the chest, normal palpation of entire chest wall and no tenderness Resp Other: PERCUSSION NOTE RESONANT, BREATH SOUNDS ARE VERY DISTANT, WITH PROLONGED EXPIRATORY PHASE. NO WHEEZES OR CREPITATIONS ARE HEARD TODAY. Cardio Palpation: normal PMI Rate: regular rate Rhythm: regular rhythm Heart sounds: no gallops and no murmurs GI Palpation (GI): Soft to palpation, nontender, No hepatosplenomegaly present, no masses and Other GI palpation findings present (ABDOMEN IS MODERATELY PROTUBERANT) Auscultation: normal bowel sounds Back/Spine/Pelvis Thoracic/Lumbar Spine: thoracic and lumbar spine normal to inspection, thoraco- lumbar ROM limited and thoraco-lumbar spasm Skin General skin exam: no rashes or lesions noted Neuro General: patient oriented x3 and no focal motor deficits Cranial nerves: Yes CN's II-XII intact bilaterally Extrem General: Yes normal to inspection, No no joint enlargement (BOTH KNEES ARE SLIGHTLY ENLARGED AND PAINFUL), Yes no clubbing, cyanosis or edema, Yes no calf tenderness and Yes normal gait (NEEDS A CANE) Psych Appearance: grossly normal Speech and movement: Normal speech and movement present Assessment & Plan Assessment & Plan (1) VIDA on CPAP: Comment: THIS GENTLEMAN HAS OBSTRUCTIVE SLEEP APNEA FOR MANY YEARS, HAS BEEN USING HIS CPAP VERY. REGULARLY AT NIGHT HE IS VERY HAPPY WITH HIS NEW CPAP MACHINE AND HAS NO ISSUES WITH THE MASK. Code(s): G47.33 - Obstructive sleep apnea (adult) (pediatric); Z99.89 - Dependence on other enabling machines and devices Category: Medical Plan: ADVISED TO CONTINUE USING CPAP EVERY NIGHT FOR AT LEAST. 6-7 HOURS (2) COPD (chronic obstructive pulmonary disease): Comment: THIS GENTLEMAN HAS CHRONIC, MODERATELY SEVERE, ASTHMA/COPD OVERLAP SYNDROME. HE IS STABLE AT THIS TIME. Code(s): J44.9 - Chronic obstructive pulmonary disease, unspecified Category: Medical Plan: ALBUTEROL HFA 2 PUFFS Q 4-6 HOURS P.R.N.. ALBUTEROL SOLUTION IN THE NEBULIZER Q 4-6 HOURS P.R.N. WHEN AT HOME. (3) Allergic rhinitis: Comment: He has chronic allergic rhinitis, remains controlled with p.r.n. use of loratadine. Code(s): J30.9 - Allergic rhinitis, unspecified Category: Medical Plan: USE LORATADINE 10 MG ONCE A DAY P.R.N HE ALSO HAS PSEUDO EPHEDRINE 30 MG TABLETS AND IS ADVISED TO USE THAT ONLY SPARINGLY. Coding Level of Care Code Est Pt Level 3 (88952) Diagnoses VIDA on CPAP G47.33; Z99.89 COPD (chronic obstructive pulmonary disease) J44.9 Allergic rhinitis J30.9
[2024-03-08 13:50] VITALS: BP 110/62; PULSE 70; O2SAT 92; BMI 35.0
== END 2024-03-08 14:02 | disposition home or self-care (01) ==
PROVIDERS: PCP Internal Medicine; Visit Provider Internal Medicine
DX: G47.33 Obstructive sleep apnea (adult) (pediatric) (principal); Z99.89 Dependence on other enabling machines and devices; J44.9 Chronic obstructive pulmonary disease, unspecified; J30.9 Allergic rhinitis, unspecified
CPT/HCPCS: 99213

== ENCOUNTER → 2024-03-08 13:40 | Outpatient (BNVA) | payer MEDICARE, SELFPAY | PROVIDERS: PCP Internal Medicine; Visit Provider Internal Medicine | DX: J45.909 Unspecified asthma, uncomplicated (principal); G47.33 Obstructive sleep apnea (adult) (pediatric); E66.9 Obesity, unspecified; Z68.35 Body mass index [BMI] 35.0-35.9, adult; Z99.89 Dependence on other enabling machines and devices | CPT/HCPCS: 99212 ==

== ENCOUNTER 2024-04-10 13:24 | Outpatient (AMB) | payer MEDICARE, SELFPAY ==
--- NOTE | 2024-04-10 13:27 | A.OFFPC_ITS ---
Vital Signs 04/10/24 13:28 Height 5 ft 8 in Weight 231 lb 8 oz BMI 35.2 BP 132/76 Blood Pressure Location Lt brachial Position Sitting Pulse 60 Pulse Source Pulse Oximeter Pulse Oximetry (%) 93 Oxygen Delivery Method Room Air Intake Visit Reasons: Anxiety, Med review Intake Note: Patient is here to follow up on Anxiety, Med view. Brine Tank Tender Required: No Member Of The Legislative Council: Not Required per policy Accompanied by: Self / Same As Patient Allergies hydrocortisone [HYDROCORTISONE] Allergy (Severe, Verified 04/10/24 13:49) SWELLING NSAIDS (Non-Steroidal Anti-Inflamma [NSAIDS (NON-STEROIDAL ANTI-INFLAMMA] Allergy (Severe, Verified 04/10/24 13:49) BLEEDING aspirin Allergy (Unknown, Verified 04/10/24 13:49) bleeding doxycycline Adverse Reaction (Severe, Verified 04/10/24 13:49) in-effective Medication List - Last Reconciled 04/10/24 by Hector Cherry MD albuterol sulfate 2.5 mg (3 mL) inhalation Q4-6H PRN albuterol sulfate 90 mcg/actuation 2 puffs inhalation Q4-6H PRN brimonidine 0.2% 0 drps ophthalmic (eye) chlorthalidone 25 mg PO QAM clonazepam 0.5 mg PO BEDTIME gabapentin (Neurontin) 100 mg PO TID hydroxyzine HCl 25 mg PO BID PRN 30 days insulin glargine (Lantus Solostar U-100 Insulin) 40 units (0.4 mL) subcut QPM 30 days insulin lispro (Humalog KwikPen (U-100) Insulin) 20 units (0.2 mL) subcut TID 30 days insulin syringe,safetyneedle As directed ipratropium-albuterol 0.5 mg-3 mg(2.5 mg base)/3 mL 3 mL inhalation QID 30 days latanoprost 0.005% 1 drp ophthalmic (eye) QPM metoprolol succinate ER 50 mg PO DAILY pantoprazole 20 mg PO DAILY pen needle, diabetic (Comfort EZ Pen [place]) Use 3 times daily with insulin pseudoephedrine HCl 30 mg PO Q4-6H PRN timolol maleate 0.5% 1 drp ophthalmic (eye) BID venlafaxine 150 mg (2 x 75 mg) PO BID Tobacco use date assessed: 04/10/24 Fall risk assessment: No Falls in past year Last assessed Fall Risk: 04/10/24 Dental Screening Dental Screen Date: 01/11/24 HPI Anxiety, Med review HPI Details 73-year-old male presents to the office to discuss his chronic medical conditions. Patient reports that his anxiety symptoms are acting up or not being well controlled on the current medications. He is reporting symptoms of excessive worrying, unable to sleep and apprehension. Currently he is on clonazepam and venlafaxine. According to the patient he is taking 300 mg a day of venlafaxine. In addition he is on 0.5 mg of clonazepam once a day. Patient is also complaining that his neuropathic pain is worsening. Initially it was on the left foot and now it is on both feet. Reports constant burning symptoms in both his feet. Walking with a cane. Able to function and do activities of daily living. [facility] Medical History Class 2 severe obesity with body mass index (BMI) of 35 to 39.9 with serious comorbidity Bilateral primary osteoarthritis of knee Osteoarthritis of right knee Diabetes mellitus type 2, uncontrolled COPD exacerbation Arthritis of both knees Chronic pain syndrome Allergic rhinitis VIDA on CPAP COPD (chronic obstructive pulmonary disease) Lumbar radiculopathy Allergic rhinitis Asthma Benign prostatic hyperplasia Back pain Sleep apnea HTN (hypertension) Lumbar spondylosis Tendon tear Depression Arthritis Asthma Crohn disease Surgical History H/O colonoscopy Family History Father No problems noted. Mother No problems noted. Social History Housing: House Alcohol intake: never Comment: pain 3-4 left knee and buttock Patient Tobacco Use Status: Former Tobacco user e-Cigarette/Vaping Use: Never Used Second Hand Smoke Exposure: No Advance Directives Date on File: 09/16/23 service: No Current occupational status: retired Cognitive needs: Yes (cane) Hearing needs: No Vision needs: Yes (Glasses) Questionnaire Thrive Questionnaire Date Thrive assessed: 01/11/24 ESTELLA-7 AMB Questionnaire ESTELLA-7 Date ESTELLA - 7 assessed: 04/10/24 Feeling nervous, anxious, or on edge: 3 = Nearly every day (worse at night) Not being able to stop or control worryin = More than half the days Worrying too much about different things: 2 = More than half the days Trouble relaxin = More than half the days Being so restless that it is hard to sit still: 2 = More than half the days Becoming easily annoyed or irritable: 3 = Nearly every day Feeling afraid as if something awful might happen: 2 = More than half the days Total ESTELLA-7 score (0-4 normal; 5-9 mild; 10-14 moderate; 15-21 severe): 16 Source: Developed by Drs. Santiago Schwartz, Ana María Deleon, Osbaldo Alexander and colleagues, with an educational jose de jesus from [employer]. Physical exam (Primary Care) Vital Signs: Last Vital Signs Pulse 60 04/10/24 13:28 BP 132/76 04/10/24 13:28 Pulse Ox 93 04/10/24 13:28 Oxygen Delivery Method Room Air 04/10/24 13:28 Care Plan Goal for BP management: Blood pressure is stable. Continue current medications. BMI result Body Mass Index 35.2 BMI Assessment/Plan discussion: High (1 lb per week weight loss suggested.) BMI High, discussed plan: lifestyle, weight reduction and dietary Tobacco/Smoking Status: Tobacco use Status Tobacco use date assessed 04/10/24 04/10/24 13:33 Patient Tobacco Use Status Former Tobacco user 04/10/24 13:28 e-Cigarette/Vaping Use Never Used 04/10/24 13:28 Thrive Assessment: Date of Thrive Assessment Date Thrive assessed 01/11/24 04/10/24 13:28 Const General: cooperative and healthy appearing Nutritional Appearance: well nourished Orientation/consciousness: patient oriented x3 Limitations: no limitations HENMT Head: Yes normal to inspection Eyes General: appearance normal, both eyes and all related structures Neck Neck: Yes normal visual inspection Chest Chest palpation & inspection: normal palpation of entire chest wall Resp Effort & Inspection: normal respiratory effort Neuro General: patient oriented x3 Assessment and Plan Assessment & Plan (1) Depression: Code(s): F32.9 - Major depressive disorder, single episode, unspecified Plan: A psych consult has been requested for medical management of his depression. Patient was encouraged to continue medications at the same dosage till he sees the psychiatrist. (2) Peripheral neuropathy: Code(s): G62.9 - Polyneuropathy, unspecified Plan: Neurontin dosage has been increased to 200 mg 3 times a day. Coding Level of Care Code Est Pt Level 4 (38735) Complex EM visit Add On G2211 Diagnoses Depression F32.9 Peripheral neuropathy G62.9
[2024-04-10 13:28] VITALS: BP 132/76; PULSE 60; O2SAT 93; BMI 35.2
== END 2024-04-10 14:38 | disposition home or self-care (01) ==
PROVIDERS: PCP Internal Medicine; Visit Provider Internal Medicine
DX: F33.9 Major depressive disorder, recurrent, unspecified (principal); G62.9 Polyneuropathy, unspecified
CPT/HCPCS: 99214; G2211

== ENCOUNTER 2024-04-26 15:03 | Outpatient (AMB) | payer MEDICARE, SELFPAY ==
--- NOTE | 2024-04-26 15:50 | A.OFFPC_ITS ---
Vital Signs 04/26/24 15:57 Height 5 ft 8 in Weight 224 lb BMI 34.1 BP 140/80 H Blood Pressure Location Lt brachial Position Sitting Pulse 61 Pulse Source Pulse Oximeter Pulse Oximetry (%) 96 Oxygen Delivery Method Room Air Intake Visit Reasons: 3mth f/u - see comments Intake Note: Patient is here to follow up on DM, COPD, Chronic pain, VIDA. Request for therapy to manage his Anxiety and depression Carbon Paper Coating Supervisor Required: No Flooring Machine Operator: Not Required per policy Accompanied by: Self / Same As Patient Allergies hydrocortisone [HYDROCORTISONE] Allergy (Severe, Verified 04/26/24 15:57) SWELLING NSAIDS (Non-Steroidal Anti-Inflamma [NSAIDS (NON-STEROIDAL ANTI-INFLAMMA] Allergy (Severe, Verified 04/26/24 15:57) BLEEDING aspirin Allergy (Unknown, Verified 04/26/24 15:57) bleeding doxycycline Adverse Reaction (Severe, Verified 04/26/24 15:57) in-effective Tobacco use date assessed: 04/26/24 Fall risk assessment: No Falls in past year Last assessed Fall Risk: 04/26/24 Dental Screening Dental Screen Date: 01/11/24 HPI 3mth f/u - see comments HPI0 Details 73-year-old male presents to the office for a follow-up visit. Psychiatric outpatient evaluation scheduled in the last office visit has not been completed yet. Patient has not received the venlafaxine prescription. His blood sugars are fluctuating after meals. Compliant with other medications. [facility] Medical History Class 2 severe obesity with body mass index (BMI) of 35 to 39.9 with serious comorbidity Bilateral primary osteoarthritis of knee Osteoarthritis of right knee Diabetes mellitus type 2, uncontrolled COPD exacerbation Arthritis of both knees Chronic pain syndrome Allergic rhinitis VIDA on CPAP COPD (chronic obstructive pulmonary disease) Lumbar radiculopathy Allergic rhinitis Asthma Benign prostatic hyperplasia Back pain Sleep apnea HTN (hypertension) Lumbar spondylosis Tendon tear Depression Arthritis Asthma Crohn disease Surgical History H/O colonoscopy Family History Father No problems noted. Mother No problems noted. Social History Housing: House Alcohol intake: never Comment: pain 3-4 left knee and buttock Patient Tobacco Use Status: Former Tobacco user e-Cigarette/Vaping Use: Never Used Second Hand Smoke Exposure: No Advance Directives Date on File: 09/16/23 service: No Current occupational status: retired Cognitive needs: Yes (cane) Hearing needs: No Vision needs: Yes (Glasses) Questionnaire Thrive Questionnaire Date Thrive assessed: 01/11/24 ESTELLA-7 AMB Questionnaire ESTELLA-7 Date ESTELLA - 7 assessed: 04/10/24 Source: Developed by Drs. Santiago Schwartz, Ana María Deleon, Osbaldo Alexander and colleagues, with an educational jose de jesus from [employer]. Physical exam (Primary Care) Vital Signs: Last Vital Signs Pulse 61 04/26/24 15:57 BP 140/80 H 04/26/24 15:57 Pulse Ox 96 04/26/24 15:57 Oxygen Delivery Method Room Air 04/26/24 15:57 BMI result Body Mass Index 34.1 Tobacco/Smoking Status: Tobacco use Status Tobacco use date assessed 04/26/24 04/26/24 15:58 Patient Tobacco Use Status Former Tobacco user 04/26/24 15:50 e-Cigarette/Vaping Use Never Used 04/26/24 15:50 Thrive Assessment: Date of Thrive Assessment Date Thrive assessed 01/11/24 04/26/24 15:50 Const General: cooperative and healthy appearing Nutritional Appearance: well nourished Orientation/consciousness: patient oriented x3 Limitations: no limitations HENMT Head: Yes normal to inspection Eyes General: appearance normal, both eyes and all related structures Neck Neck: Yes normal visual inspection Chest Chest palpation & inspection: normal palpation of entire chest wall Resp Effort & Inspection: normal respiratory effort Neuro General: patient oriented x3 Results AMB Hemoglobin A1c AMB Hemoglobin A1c 6.3 % Last Edit by CLAU Hamilton on 04/26/24 16:09 Results Reviewed Results Reviewed: Laboratory Last Values Hgb A1c (Clinic) 6.3 % (4.0-6.0) H 04/26/24 15:50 Assessment and Plan Assessment & Plan (1) Depression: Code(s): F32.9 - Major depressive disorder, single episode, unspecified Plan: Psychiatry consult was requested again. Venlafaxine prescription was called again. Patient was advised to monitor blood sugars regularly. Orders: Orders AMB Hemoglobin A1c Today E11.65 - Type 2 diabetes mellitus with hyperglycemia Referrals Psychiatry Outpatient Consultation Service F32.9 - Major depressive disorder, single episode, unspecified Medications: Refilled venlafaxine 150 mg (2 x 75 mg) PO BID 360 tabs 1RF venlafaxine 150 mg (2 x 75 mg) PO BID 360 tabs 1RF Coding Level of Care Code Est Pt Level 3 (80234) Complex EM visit Add On G2211 Diagnoses Depression F32.9
[2024-04-26 15:57] VITALS: BP 140/80; PULSE 61; O2SAT 96; BMI 34.1
== END 2024-04-26 17:04 | disposition home or self-care (01) ==
PROVIDERS: PCP Internal Medicine; Visit Provider Internal Medicine
DX: E11.65 Type 2 diabetes mellitus with hyperglycemia (principal); F32.9 Major depressive disorder, single episode, unspecified
CPT/HCPCS: 83036; 99213; G2211

== ENCOUNTER 2024-05-29 13:43 | Outpatient (AMB) | payer MEDICARE, SELFPAY ==
--- NOTE | 2024-05-29 14:07 | MHC.OFFVISPS ---
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: No Allergies hydrocortisone [HYDROCORTISONE] Allergy (Severe, Verified 04/26/24 15:57) SWELLING NSAIDS (Non-Steroidal Anti-Inflamma [NSAIDS (NON-STEROIDAL ANTI-INFLAMMA] Allergy (Severe, Verified 04/26/24 15:57) BLEEDING aspirin Allergy (Unknown, Verified 04/26/24 15:57) bleeding doxycycline Adverse Reaction (Severe, Verified 04/26/24 15:57) in-effective Medication List - Last Reconciled 05/29/24 by Gayathri Castro APRN albuterol sulfate 2.5 mg (3 mL) inhalation Q4-6H PRN albuterol sulfate 90 mcg/actuation 2 puffs inhalation Q4-6H PRN 30 days brimonidine 0.2% 0 drps ophthalmic (eye) chlorthalidone 25 mg PO QAM clonazepam 0.5 mg PO BEDTIME gabapentin 300 mg PO BID insulin glargine (Lantus Solostar U-100 Insulin) 40 units (0.4 mL) subcut QPM 30 days insulin lispro (Humalog KwikPen (U-100) Insulin) 20 units (0.2 mL) subcut TID 30 days insulin syringe,safetyneedle As directed ipratropium-albuterol 0.5 mg-3 mg(2.5 mg base)/3 mL 3 mL inhalation QID 30 days latanoprost 0.005% 1 drp ophthalmic (eye) QPM metoprolol succinate ER 50 mg PO DAILY pantoprazole 20 mg PO DAILY pen needle, diabetic (Comfort EZ Pen [place]) Use 3 times daily with insulin prednisone 10 mg PO BID 7 days pseudoephedrine HCl 30 mg PO Q4-6H PRN 30 days venlafaxine 150 mg (2 x 75 mg) PO BID HPI- Psychiatric Chief Complaint: consultation HPI Narrative: 73 yo male referred by PCP for depression and anxiety. He is currently taking venalfaxine IR 150 mg BID and clonazepam 0.5mg pr for anxiety/insomnia' pt states he does not sleep well; he worries all night and often is awake until sun comes up. he is depressed, low energy, no motivaiton, little interest in activities and no lili in things in he used to enjoy. He reports feeling bad about himslef, toruble concentrating and poor appetite. He has trouble relaxing and often feels restless despite no energy and not wanting to do things. he reports constant body pain and he can not take NSAIDS due to bleeding risk. He denies SI or HI; He denies any darin episodes. he denies A/V hallucinations Past Psychiatric History: outp tx for years with venlafaxine and clonazepam Subjective Subjective Subjective Medication Compliance: Yes Side effects from medications: No Review of Systems Medical Review of Systems: unchanged Mental Status Exam Mental Status Exam Patient Appearance: Disheveled and Unkempt Patient Orientation: Person, Place, Time and Situation Level of Consciousness: Awake and Appropriate Patient Behavior: Appropriate and Fatigued Mood Description: Flat and Sad Affect Description: Flat and Sad Patient Cognition Impaired: No Ability to Follow Directions: Good Speech Pattern: Clear Memory Description: Intact Hallucinations: None Delusions: Not Present Thought Process: Intact and Goal Oriented Thought Content: positive for Intact and positive for Goal Oriented Judgement: Good Assessment and Plan Assessment & Plan (1) Major depressive disorder, recurrent severe without psychotic features: Status: Acute Code(s): F33.2 - Major depressive disorder, recurrent severe without psychotic features (2) ESTELLA (generalized anxiety disorder): Status: Acute Code(s): F41.1 - Generalized anxiety disorder (3) Insomnia: Status: Acute Qualifiers: Insomnia type: due to other mental disorder Qualified Code(s): F51.05 - Insomnia due to other mental disorder; F99 - Mental disorder, not otherwise specified Code(s): G47.00 - Insomnia, unspecified Plan d/c venlafaxine IR start venlafaxne ER 150mg at bedtime venlafaxine Er 75mg in am daily clonazepam 0.5mg at 5 pm daily doxepin 3 mg at bedtime return in 3-4 weeks Medications: New doxepin 3 mg PO BEDTIME 30 tabs 0RF venlafaxine ER 150 mg PO BEDTIME 30 caps 0RF venlafaxine ER 75 mg PO QAM 30 caps 0RF Changed From clonazepam administer 30 minutes before bedtime 0.5 mg PO BEDTIME 30 tabs 0RF To clonazepam administer 30 minutes before bedtime 0.5 mg PO DAILY@1700 30 tabs 0RF Discontinued venlafaxine Discontinued Reason: Doctor's Order 150 mg (2 x 75 mg) PO BID 360 tabs 1RF Counseling and coordination of Care Pt. Self Management counseling: Maintenance-social rhythm, Mod caffeine/ETOH intake, Sleep hygiene, Behavior activation and General coping skills Medication management counseling: Effectiveness, Side effects, Dosing range, Duration, Drug interaction and Adherence Diagnosis and Prognosis Counseling: Accuracy of diagnosis, Prognosis over time, Impact of diagnosis on life functions, Impact of family relationship, Problematic behaviors secondary to diagnosis and Adequacy of current interventions Details: I spent 60 minutes reviewing the record, seeing the patient and documenting in the medical record. Counseling provided to the patient/caregiver as outlined below. Addressed patient/caregiver concerns regarding current medication regime including effective adherence. Addressed patient/caregiver concerns regarding diagnosis and prognosis including accuracy of diagnosis, prognosis over time, impact of diagnosis. Addressed patient/caregiver concerns regarding impact of recent stressors. [facility] Medical History Class 2 severe obesity with body mass index (BMI) of 35 to 39.9 with serious comorbidity Bilateral primary osteoarthritis of knee Osteoarthritis of right knee Diabetes mellitus type 2, uncontrolled COPD exacerbation Arthritis of both knees Chronic pain syndrome Allergic rhinitis VIDA on CPAP COPD (chronic obstructive pulmonary disease) Lumbar radiculopathy Allergic rhinitis Asthma Benign prostatic hyperplasia Back pain Sleep apnea HTN (hypertension) Lumbar spondylosis Tendon tear Depression Arthritis Asthma Crohn disease Surgical History H/O colonoscopy Family History Father No problems noted. Mother No problems noted. 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 raised by brother and sister Coding Level of Care Code Psych Diag Eval w/Med (31087) Diagnoses Major depressive disorder, recurrent severe without psychotic features F33.2 ESTELLA (generalized anxiety disorder) F41.1 Insomnia due to other mental disorder F51.05; F99 Insomnia type: due to other mental disorder
== END 2024-05-29 15:54 | disposition home or self-care (01) ==
LOC: HO.HOP 13:44
PROVIDERS: PCP Internal Medicine; Visit Provider Clinical Nurse Specialist Psychiatric/Mental Health
DX: F33.2 Major depressive disorder, recurrent severe without psychotic features (principal); F41.1 Generalized anxiety disorder; F51.05 Insomnia due to other mental disorder; F99 Mental disorder, not otherwise specified
CPT/HCPCS: 90792

== ENCOUNTER → 2024-05-29 13:43 | Outpatient (BNVA) | payer MEDICARE, SELFPAY | PROVIDERS: PCP Internal Medicine; Visit Provider Clinical Nurse Specialist Psychiatric/Mental Health | DX: F33.2 Major depressive disorder, recurrent severe without psychotic features (principal); F41.1 Generalized anxiety disorder; F51.05 Insomnia due to other mental disorder; F99 Mental disorder, not otherwise specified | CPT/HCPCS: 90792 ==

== ENCOUNTER 2024-06-19 13:31 | Outpatient (AMB) | payer MEDICARE, SELFPAY ==
--- NOTE | 2024-06-19 13:32 | A.OFFPSYCH_ITS ---
Intake Intake Visit Reasons: f/u consultation Director Of Guidance Required: No Allergies hydrocortisone [HYDROCORTISONE] Allergy (Severe, Verified 06/19/24 14:06) SWELLING NSAIDS (Non-Steroidal Anti-Inflamma [NSAIDS (NON-STEROIDAL ANTI-INFLAMMA] Allergy (Severe, Verified 06/19/24 14:06) BLEEDING aspirin Allergy (Unknown, Verified 06/19/24 14:06) bleeding doxycycline Adverse Reaction (Severe, Verified 06/19/24 14:06) in-effective Medication List - Last Reconciled 06/19/24 by Gayathri Castro APRN albuterol sulfate 2.5 mg (3 mL) inhalation Q4-6H PRN albuterol sulfate 90 mcg/actuation 2 puffs inhalation Q4-6H PRN 30 days azithromycin For 250 mg dose pack: take 500 mg today (day 1), then 250 mg for 4 days (days 2-5) PO 5 days brimonidine 0.2% 0 drps ophthalmic (eye) chlorthalidone 25 mg PO QAM clonazepam 0.5 mg PO DAILY@1700 doxepin 3 mg PO BEDTIME gabapentin 300 mg PO BID insulin glargine (Lantus Solostar U-100 Insulin) 40 units (0.4 mL) subcut QPM 30 days insulin lispro (Humalog KwikPen (U-100) Insulin) 20 units (0.2 mL) subcut TID 30 days insulin syringe,safetyneedle As directed ipratropium-albuterol 0.5 mg-3 mg(2.5 mg base)/3 mL 3 mL inhalation QID 30 days latanoprost 0.005% 1 drp ophthalmic (eye) QPM metoprolol succinate ER 50 mg PO DAILY pantoprazole 20 mg PO DAILY pen needle, diabetic (Comfort EZ Pen [place]) Use 3 times daily with insulin prednisone 10 mg PO BID 7 days prednisone 10 mg PO BID 7 days pseudoephedrine HCl 30 mg PO Q4-6H PRN 30 days venlafaxine ER 150 mg PO BEDTIME venlafaxine ER 75 mg PO QAM HPI- Psychiatric Chief Complaint: f/u consultation HPI Narrative: pt reports he is still depressed and not sleeping; He has tried hydroxyzine, trazodone and many other the counter sleep aids. none have worked. we discussed low dose of seroquel and remeron but he says he took thise in past and did notheing; he wants ambien as he has had in the past; discussed risk vs benefits and especially risk of oversedation and decreased respirations which is a risk given his COPD - we agreed to a very low dose 2.5mg at bedtime Past Psychiatric History: outp tx for years with venlafaxine and clonazepam Subjective Subjective Subjective Medication Compliance: Yes Side effects from medications: No Review of Systems Medical Review of Systems: unchanged Mental Status Exam Mental Status Exam Patient Appearance: Well Grooomed, Fatigued and Appropriate Patient Orientation: Person, Place, Time and Situation Level of Consciousness: Awake Patient Behavior: Appropriate Mood Description: Depressed Affect Description: Depressed Patient Cognition Impaired: No Ability to Follow Directions: Good Speech Pattern: Clear Memory Description: Intact Hallucinations: None Delusions: Not Present Thought Process: Intact Judgement: Fair Assessment and Plan Assessment & Plan (1) Insomnia: Status: Acute Qualifiers: Insomnia type: due to other mental disorder Qualified Code(s): F51.05 - Insomnia due to other mental disorder; F99 - Mental disorder, not otherwise specified Code(s): G47.00 - Insomnia, unspecified (2) ESTELLA (generalized anxiety disorder): Status: Acute Code(s): F41.1 - Generalized anxiety disorder (3) Major depressive disorder, recurrent severe without psychotic features: Status: Acute Code(s): F33.2 - Major depressive disorder, recurrent severe without psychotic features Plan trial of low dose ambien dc doxepin as insurance would not cover Medications: New zolpidem (Ambien) 2.5 mg (1/2 x 5 mg) PO BEDTIME 15 tabs 1RF Discontinued doxepin Discontinued Reason: Doctor's Order 3 mg PO BEDTIME 30 tabs 0RF Counseling and coordination of Care Pt. Self Management counseling: Sleep hygiene Medication management counseling: Effectiveness, Side effects, Dosing range, Duration, Drug interaction and Adherence Diagnosis and Prognosis Counseling: Accuracy of diagnosis, Prognosis over time, Impact of diagnosis on life functions, Impact of family relationship, Problematic behaviors secondary to diagnosis and Adequacy of current interventions Details: I spent 30 minutes reviewing the record, seeing the patient and documenting in the medical record. Counseling provided to the patient/caregiver as outlined below. Addressed patient/caregiver concerns regarding current medication regime including effective adherence. Addressed patient/caregiver concerns regarding diagnosis and prognosis including accuracy of diagnosis, prognosis over time, impact of diagnosis. Addressed patient/caregiver concerns regarding impact of recent stressors. [facility] Medical History Class 2 severe obesity with body mass index (BMI) of 35 to 39.9 with serious comorbidity Bilateral primary osteoarthritis of knee Osteoarthritis of right knee Diabetes mellitus type 2, uncontrolled COPD exacerbation Arthritis of both knees Chronic pain syndrome Allergic rhinitis VIDA on CPAP COPD (chronic obstructive pulmonary disease) Lumbar radiculopathy Allergic rhinitis Asthma Benign prostatic hyperplasia Back pain Sleep apnea HTN (hypertension) Lumbar spondylosis Tendon tear Depression Arthritis Asthma Crohn disease Surgical History H/O colonoscopy Family History Father No problems noted. Mother No problems noted. 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 raised by brother and sister Coding Level of Care Code Est Pt Level 4 (53043) Diagnoses Insomnia due to other mental disorder F51.05; F99 Insomnia type: due to other mental disorder ESTELLA (generalized anxiety disorder) F41.1 Major depressive disorder, recurrent severe without psychotic features F33.2
== END 2024-06-19 13:47 | disposition home or self-care (01) ==
LOC: HO.HOP 13:31
PROVIDERS: PCP Internal Medicine; Visit Provider Clinical Nurse Specialist Psychiatric/Mental Health
DX: F51.05 Insomnia due to other mental disorder (principal); F99 Mental disorder, not otherwise specified; F41.1 Generalized anxiety disorder; F33.2 Major depressive disorder, recurrent severe without psychotic features
CPT/HCPCS: 99214

== ENCOUNTER → 2024-06-19 13:31 | Outpatient (BNVA) | payer MEDICARE, SELFPAY | PROVIDERS: PCP Internal Medicine; Visit Provider Clinical Nurse Specialist Psychiatric/Mental Health | DX: Z13.89 Encounter for screening for other disorder (principal) | CPT/HCPCS: 99212 ==

== ENCOUNTER 2024-06-19 13:52 | Inpatient (IN) | payer MEDICARE, SELFPAY ==
[2024-06-19] VITALS (10 sets, daily range): BP systolic 111–148; BP diastolic 59–89; PULSE 61–79; RESP 14–24; TEMP 36.3–36.8; O2SAT 86–96; BMI 34.1
--- NOTE | ~2024-06-19 | XR_ITS ---
EXAMINATION: XR CHEST CLINICAL INFORMATION: Pain COMPARISON: 04/23/2023 TECHNIQUE: Frontal view of the chest was obtained. FINDINGS: The cardiomediastinal silhouette is stable in size. Atherosclerotic calcification in the aortic arch. Mild bronchial wall thickening without consolidation. No pleural effusion or pneumothorax. XR/XR chest 1V IMPRESSION: Mild bronchial wall thickening suggesting small airways disease. No consolidation. Electronically signed by: Santiago Pavon MD 06/19/2024 03:14 PM EDT
--- NOTE | 2024-06-19 14:05 | ED_ITS ---
HPI - General Adult General Chief complaint: Dyspnea Stated complaint: Bronchitis Time Seen by Provider: 06/19/24 14:17 Source: patient Mode of arrival: ambulatory Limitations: no limitations History of Present Illness ED Provider: Ricardo CURRY HPI narrative: 73-year-old male history of asthma, COPD, depression, Crohn's disease, VIDA, mild cognitive disorder, diabetes presenting to the emergency department for evaluation of shortness of breath and nonproductive cough ongoing for the past week or so, he was recently prescribed a Z-Silvestre, inhaler and steroids initially he was feeling better however last night he started to feel worse again. He denies sick contacts. He denies fevers, chills, chest pain, headache, vision changes, dizziness, weakness, changes in urination or bowel habits. Related Data Home Medications ?Medication ?Instructions ?Recorded ?Confirmed latanoprost 0.005 % eye drops 1 drp ophthalmic (eye) QPM 11/17/21 06/19/24 brimonidine 0.2 % eye drops 0 drp ophthalmic (eye) 05/18/23 06/19/24 Previous Rx's ?Medication ?Instructions ?Recorded insulin syringe,safetyneedle 0.3 #100 ea 09/28/21 mL 29 gauge x 1/2 pen needle, diabetic 32 gauge x #100 ea 04/09/22 5/16 (Comfort EZ Pen [place]) albuterol sulfate 2.5 mg/3 mL 2.5 mg (3 mL) inhalation Q4-6H PRN 04/23/23 (0.083 %) solution for nebulization shortness of breath or wheezing #90 mL ipratropium 0.5 mg-albuterol 3 mg 3 ml inhalation QID COPD, SEVERE 05/24/23 (2.5 mg base)/3 mL nebulization 30 days #360 mL soln chlorthalidone 25 mg tablet 25 mg PO QAM #90 tabs 11/25/23 metoprolol succinate 50 mg 50 mg PO DAILY #90 tabs 11/25/23 tablet,extended release 24 hr pantoprazole 20 mg tablet,delayed 20 mg PO DAILY #90 tabs 11/25/23 release gabapentin 300 mg capsule 300 mg PO BID #180 caps 04/10/24 albuterol sulfate 90 mcg/actuation 2 puff inhalation Q4-6H PRN for 04/24/24 aerosol inhaler wheezing 30 days #1 ea pseudoephedrine HCl 30 mg tablet 30 mg PO Q4-6H PRN nasal 04/26/24 congestion 30 days #30 tabs insulin lispro 100 unit/mL 20 unit (0.2 mL) subcut TID 30 04/27/24 subcutaneous pen (Humalog KwikPen days #18 mL (U-100) Insulin) insulin glargine 100 unit/mL (3 40 unit (0.4 mL) subcut QPM 30 05/04/24 mL) subcutaneous pen (Lantus days #12 mL Solostar U-100 Insulin) prednisone 10 mg tablet 10 mg PO BID ASTHMA/COPD 7 days 05/08/24 #14 tabs clonazepam 0.5 mg tablet 0.5 mg PO DAILY@1700 #30 tabs 05/29/24 venlafaxine 150 mg 150 mg PO BEDTIME #30 caps 05/29/24 capsule,extended release 24 hr venlafaxine 75 mg capsule,extended 75 mg PO QAM #30 caps 05/29/24 release 24 hr azithromycin 250 mg tablet See Rx Instructions PO .COMPLEX 06/07/24 COPD EXCERBATION . 5 days #6 tabs prednisone 10 mg tablet 10 mg PO BID COPD EXCERBATION 7 06/07/24 days #14 tabs zolpidem 5 mg tablet (Ambien) 2.5 mg (1/2 x 5 mg) PO BEDTIME #15 06/19/24 tabs Allergies Allergy/AdvReac Type Severity Reaction Status Date / Time hydrocortisone Allergy Severe SWELLING Verified 06/19/24 14:06 [HYDROCORTISONE] NSAIDS (Non-Steroidal Allergy Severe BLEEDING Verified 06/19/24 14:06 Anti-Inflamma [NSAIDS (NON-STEROIDAL ANTI-INFLAMMA] aspirin Allergy Unknown bleeding Verified 06/19/24 14:06 doxycycline AdvReac Severe in-effectiv Verified 06/19/24 14:06 e Review of Systems 2 Review of Systems: Yes all other systems are reviewed and are negative PMFSH Past Medical History Attestation statement: The following information was validated with the patient. Source: old records reviewed and nursing notes reviewed Medical History Class 2 severe obesity with body mass index (BMI) of 35 to 39.9 with serious comorbidity Bilateral primary osteoarthritis of knee Osteoarthritis of right knee Diabetes mellitus type 2, uncontrolled COPD exacerbation Arthritis of both knees Chronic pain syndrome Allergic rhinitis VIDA on CPAP COPD (chronic obstructive pulmonary disease) Lumbar radiculopathy Allergic rhinitis Asthma Benign prostatic hyperplasia Back pain Sleep apnea HTN (hypertension) Lumbar spondylosis Tendon tear Depression Arthritis Asthma Crohn disease Surgical History H/O colonoscopy Family History Family History Father No problems noted. Mother No problems noted. Social History Social History Housing: House Alcohol intake: never Comment: pain 3-4 left knee and buttock Patient Tobacco Use Status: Former Tobacco user Smoked in Last 30 Days: No e-Cigarette/Vaping Use: Never Used Second Hand Smoke Exposure: No Use of substances other than those prescribed or required for medical reasons: No Advance Directives: No Advance Directives Information Provided: Yes Advance Directives Date on File: 09/16/23 service: No Current occupational status: retired Cognitive needs: Yes (cane) Hearing needs: No Vision needs: Yes (Glasses) Physical Exam ED Vital Signs: Vital Signs - 24 hr 06/19/24 14:04 06/19/24 14:24 06/19/24 15:00 Temperature 97.8 F Pulse Rate 79 68 Respiratory Rate 24 H 24 H Blood Pressure 125/74 Pulse Oximetry 88 L 86 L Oxygen Delivery Method Room Air Room Air Oxygen Flow Rate 06/19/24 15:03 06/19/24 15:13 06/19/24 16:20 Temperature 98.2 F Pulse Rate 70 61 Respiratory Rate 20 16 Blood Pressure 111/68 Pulse Oximetry 88 L 94 93 Oxygen Delivery Method Room Air Nasal Cannula Nasal Cannula Oxygen Flow Rate 3 3 BMI result Body Mass Index 34.1 vss Appearance: Alert.? Oriented X3.? No acute distress.? Head: Normocephalic, atraumatic, no step-offs or deformities Eyes: Pupils equal, round and reactive to light.? ENT: Pharynx normal.? Neck: Normal inspection.? Neck supple.? CVS: Normal heart rate and rhythm.? Pulses normal.? Respiratory: No respiratory distress.? Breath sounds with diffuse expiratory wheezing bilaterally..? Abdomen: Soft and nontender.? Skin: Skin warm and dry.? Normal skin color.? Normal skin turgor.? Extremities: No lower extremity edema.? No calf ttp. 5/5 strength to bilateral upper and lower extremities Neuro: Oriented X 3.? No motor deficit.? No sensory deficit. CN 2-12 intact Course Course Course Narrative: RME, this is a rapid medical exam performed by Cortes Helms please refer to primary provider for complete H&P- 73-year-old male presents for evaluation of shortness of breath and wheezing. His symptoms started again last night. He was treated about 2 weeks ago with azithromycin and prednisone which he picked up on June 08 and completed the course. His classics teacher is Dr. Rojas. The patient is wheezy throughout on exam. Plan for bronchodilator protocol, chest x-ray and viral swabs Reevaluation(s) Reevaluation #1: CBC unremarkable. Chemistry no acute findings needing intervention. Patient's D-dimer negative. Flu, COVID, RSV negative. CXR pending Plan hospital admission Time: 16:29 Medications Administered Generic Name Dose Route Start Last Admin Trade Name Freq PRN Reason Stop Dose Admin Magnesium Sulfate 2 gm in 50 mls @ 25 mls/hr 06/19/24 14:47 06/19/24 15:01 Magnesium Sulfate/H2o IV 06/19/24 16:46 25 mls/hr ONCE ONE Administration Discontinued Medications Generic Name Dose Route Start Last Admin Trade Name Freq PRN Reason Stop Dose Admin Albuterol Sulfate 5 mg/ 0 mg 06/19/24 14:15 06/19/24 14:21 Albuterol/Ipratropium 3 ml INHALE 06/19/24 14:16 1 each ONCE ONE Administration Methylprednisolone Sodium Succinate 125 mg 06/19/24 15:49 06/19/24 16:11 Methylprednisolone Sod Succ 125 Mg/2 Ml Vial IVPUSH 06/19/24 15:50 125 mg ONCE ONE Administration Medical Decision Making Medical Decision Making [facility] Narrative: 73-year-old male presents with shortness of breath, cough, recently on antibiotics for bronchitis not improving. Physical exam diffuse expiratory wheezing. Patient is hypoxic he is 88% on room air. Will be placed on nasal cannula. History and physical exam concerning for pneumonia versus chronic lung conditions such as asthma versus bronchitis. Unlikely pulmonary embolism however will rule out. I do not suspect acute respiratory distress, ACS, dissection Plan- labs, imaging, viral test Differential Diagnosis Differential Diagnoses: The differential diagnosis associated with the presentation includes History and physical exam concerning for pneumonia versus chronic lung conditions such as asthma versus bronchitis. Unlikely pulmonary embolism however will rule out. I do not suspect acute respiratory distress, ACS, dissection Admission/Observation Consideration of admission/observation: Escalation of care including admission/observation considered Likely Lab Data 06/19/24 14:46 06/19/24 14:46 Labs: Lab Results 06/19/24 06/19/24 06/19/24 Range/Units 14:43 14:46 15:00 WBC 7.7 (4.8-10.8) X10*3/uL RBC 5.21 (4.60-5.80) X10*6/uL Hgb 15.2 (14.0-18.0) g/dl Hct 45.3 (42.0-52.0) % MCV 86.9 (80.0-98.0) fL MCH 29.2 (27.0-33.0) pg MCHC 33.6 (31.0-36.0) g/dl RDW 14.0 (11.0-16.0) % Plt Count 345 (160-400) X10*3/uL MPV 10.6 (9.4-12.4) fL Immature Gran % (Auto) 1.2 H (0.0-0.4) % Neut % (Auto) 62.5 (45-73) % Lymph % (Auto) 22.0 (20-40) % [place] % (Auto) 8.6 (2-11) % Eos % (Auto) 5.3 H (0-4) % Baso % (Auto) 0.4 (0-2) % Lymph # (Auto) 1.7 (1.2-4.9) X10*3/uL [place] # (Auto) 0.7 (0.1-1.2) X10*3/uL Eos # (Auto) 0.4 (0.0-0.4) X10*3/uL Baso # (Auto) 0.0 (0.0-0.2) X10*3/uL Abs Immat Gran (auto) 0.09 H (0.00-0.03) X10*3/uL Absolute Neuts (auto) 4.8 (2.0-8.3) x10*3/uL Absolute Nucleated RBC 0.000 (0.0-0.012) X10*3/uL Nucleated RBC % (auto) 0.0 (0.0-0.2) /100WBC D-Dimer High Sensitivty 184 NG/ML Sodium 141 (135-145) mmol/L Potassium 4.2 (3.3-5.1) mmol/L Chloride 102 (96-108) mmol/L Carbon Dioxide 30 H (22-29) mmol/L Anion Gap 13 (12-20) BUN 21 H (9-16) mg/dL Creatinine 1.03 (0.5-1.4) mg/dL Estim Creat Clear Calc 73.7 Estimated GFR > 60 Random Glucose 172 H (60-115) mg/dL Calcium 9.8 (8.4-10.2) mg/dL Total Bilirubin 0.6 (0.0-1.0) mg/dL AST 12 (5-37) U/L ALT 10 (0-40) U/L Alkaline Phosphatase 118 H (39-117) U/L Total Protein 6.6 (6.5-8.0) g/dL Albumin 3.5 (3.5-5.0) g/dL Influenza Type A (PCR) NEGATIVE (Negative) Influenza Type B (PCR) NEGATIVE (Negative) RSV RNA Qual (PCR) NEGATIVE (Negative) SARS-CoV-2 RNA (RT-PCR) NEGATIVE (Negative) Critical Care Time Critical Care Time Critical Care Time: Yes Total Critical Care Time: 35 Attestation: I attest to this time spent taking care of the patient, obtaining history, physical, reviewing labs, imaging, speaking to my attending, specialist or hospitalist. Discharge Plan Discharge Clinical Impression: Acute and chronic respiratory failure with hypoxia, Asthma Patient Disposition: Still a Patient Prescriptions: No Action (DME) insulin syringe,safetyneedle 0.3 mL 29 x 1/2 syringe See Rx Instructions .Route Qty: 100 0RF Rx Instructions: As directed (DME) Comfort EZ Pen [place] 32 gauge x 5/16 needle See Rx Instructions .Route Qty: 100 0RF Rx Instructions: Use 3 times daily with insulin metoprolol succinate 50 mg tablet extended release 24 hr 50 mg PO DAILY Qty: 90 1RF pantoprazole 20 mg tablet,delayed release (DR/EC) 20 mg PO DAILY Qty: 90 1RF chlorthalidone 25 mg tablet 25 mg PO QAM Qty: 90 1RF albuterol sulfate 90 mcg/actuation HFA aerosol inhaler 2 puff inhalation Q4-6H PRN (Reason: for wheezing) 30 Days Qty: 1 2RF pseudoephedrine HCl 30 mg tablet 30 mg PO Q4-6H PRN (Reason: nasal congestion) 30 Days Qty: 30 4RF Rx Instructions: DNExceed 3 doses/24h insulin lispro [Humalog KwikPen Insulin] 100 unit/mL insulin pen 20 unit subcut TID 30 Days Qty: 18 1RF insulin glargine [Lantus Solostar U-100 Insulin] 100 unit/mL (3 mL) insulin pen 40 unit subcut QPM 30 Days Qty: 12 1RF prednisone 10 mg tablet 10 mg PO BID 7 Days Qty: 14 0RF prednisone 10 mg tablet 10 mg PO BID 7 Days Qty: 14 0RF azithromycin 250 mg tablet See Rx Instructions PO .COMPLEX 5 Days Qty: 6 0RF Rx Instructions: For 250 mg dose pack: take 500 mg today (day 1), then 250 mg for 4 days (days 2-5) PO albuterol sulfate 2.5 mg /3 mL (0.083 %) solution for nebulization 2.5 mg inhalation Q4-6H PRN (Reason: shortness of breath or wheezing) Qty: 90 0RF gabapentin 300 mg capsule 300 mg PO BID Qty: 180 1RF latanoprost 0.005 % drops 1 drp ophthalmic (eye) QPM brimonidine 0.2 % drops 0 drp ophthalmic (eye) ipratropium-albuterol 0.5 mg-3 mg(2.5 mg base)/3 mL solution for nebulization 3 ml inhalation QID 30 Days Qty: 360 3RF venlafaxine 150 mg capsule,extended release 24hr 150 mg PO BEDTIME Qty: 30 0RF venlafaxine 75 mg capsule,extended release 24hr 75 mg PO QAM Qty: 30 0RF clonazepam 0.5 mg tablet 0.5 mg PO DAILY@1700 Qty: 30 0RF Rx Instructions: administer 30 minutes before bedtime zolpidem [Ambien] 5 mg tablet 2.5 mg PO BEDTIME Qty: 15 1RF Print Language: Romanian
[2024-06-19] MEDS: Albuterol Sulfate 5 MG, Albuterol/Iprat 2.5/0.5MG 3 ML 3 ML INHALE (14:21)
[2024-06-19 14:51] LABS: Basophils Percent Auto 0.4 % (0-2); Eosinophils Absolute Auto 0.4 X10*3/uL (0.0-0.4); Eosinophils Percent Auto 5.3 % (0-4); Hematocrit 45.3 % (42.0-52.0); Hemoglobin 15.2 g/dl (14.0-18.0); Imm Gran Abs Auto 0.09 X10*3/uL (0.00-0.03); Imm Gran Pct Auto 1.2 % (0.0-0.4); Lymphocytes Absolute Auto 1.7 X10*3/uL (1.2-4.9); MANUAL DIFF FLAG NO; Mean Corpuscular HGB Conc 33.6 g/dl (31.0-36.0); Mean Corpuscular Hemoglobin 29.2 pg (27.0-33.0); Mean Corpuscular Volume 86.9 fL (80.0-98.0); Mean Platelet Volume 10.6 fL (9.4-12.4); Monocytes Absolute Auto 0.7 X10*3/uL (0.1-1.2); Monocytes Percent Auto 8.6 % (2-11); Neutrophils Absolute Auto 4.8 x10*3/uL (2.0-8.3); Neutrophils Percent Auto 62.5 % (45-73); Platelet Count 345 X10*3/uL (160-400); Red Blood Count 5.21 X10*6/uL (4.60-5.80); White Blood Count 7.7 X10*3/uL (4.8-10.8)
[2024-06-19] MEDS: Magnesium Sulfate/H2O 2 GM/50 ML PIGGYBACK IV (15:01)
[2024-06-19 15:06] LABS: Alanine Aminotransferase 10 U/L (0-40); Albumin Level 3.5 g/dL (3.5-5.0); Alkaline Phosphatase 118 U/L (39-117); Anion Gap 13 (12-20); Aspartate Amino Transferase 12 U/L (5-37); Bilirubin Total 0.6 mg/dL (0.0-1.0); Blood Urea Nitrogen 21 mg/dL (9-16); Calcium 9.8 mg/dL (8.4-10.2); Carbon Dioxide 30 mmol/L (22-29); Chloride 102 mmol/L (96-108); Creatinine Clr Calc Pharmacy 73.7; Estimated Glomerular Filt Rate > 60; Glucose Random 172 mg/dL (60-115); Potassium 4.2 mmol/L (3.3-5.1); Sodium 141 mmol/L (135-145); Total Protein 6.6 g/dL (6.5-8.0)
--- NOTE | 2024-06-19 15:11 | PC.NURSE ---
Pt presents to ED from home, reports intermittent cough and SOB for past month, getting worse. Has hx of COPD, no home O2 at this time, using inhaler at home with little relief. Reports productive cough with jose cruz color sputum. Denies N/V/D, CP. Alert and oriented. Breathing labored, skin warm and dry. Pt noted to be 86-88% on RA, placed on 3L O2 NC after his neb rx. 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
[2024-06-19 15:15] LABS: D Dimer High Sensitivity 184 NG/ML
[2024-06-19 15:29] LABS: Influenza A PCR NEGATIVE (Negative); Influenza B PCR NEGATIVE (Negative); Resp Syncy Virus RNA Qual PCR NEGATIVE (Negative); SARS COV2 PCR INHOUSE NEGATIVE (Negative)
[2024-06-19] MEDS: methylPREDNISolone Sod Succ 125 MG/2 ML VIAL IVPUSH (16:11)
--- NOTE | 2024-06-19 16:35 | P.HPHOSP_ITS ---
History of Present Illness Date of Service: 06/19/24 Chief Complaint: Shortness of Breath A 73-year-old male with COPD (not on home oxygen), HTN, and insulin dependent diabetes presents with shortness of breath. He was recently ill and was prescribed a Z-pack and prednisone by his a p mechanic (Dr. Rojas), which he completed 3 days ago. He continues to experience shortness of breath, wheezing, and occasional cough, but denies fever or chills. On examination, he is hypoxic with an O2 saturation of 86% on room air, improving to 93% on 3L oxygen. Chest X-ray shows no acute findings. Tests for flu, RSV, and COVID-19 are negative. D- dimer is 184, WNC normal. He is treated with IV steroids and nebulized bronchodilators and reports feeling better. Review of Systems 2 Review of Systems: Gen: no fever Resp: + sob, + cough, wheeze CV: no chest, no SIMON, no leg edema GI: No n/v, no abd pain Neuro: No confusion Yes all other systems are reviewed and are negative [facility] Medical History Class 2 severe obesity with body mass index (BMI) of 35 to 39.9 with serious comorbidity Bilateral primary osteoarthritis of knee Osteoarthritis of right knee Diabetes mellitus type 2, uncontrolled COPD exacerbation Arthritis of both knees Chronic pain syndrome Allergic rhinitis VIDA on CPAP COPD (chronic obstructive pulmonary disease) Lumbar radiculopathy Allergic rhinitis Asthma Benign prostatic hyperplasia Back pain Sleep apnea HTN (hypertension) Lumbar spondylosis Tendon tear Depression Arthritis Asthma Crohn disease Family History Father No problems noted. Mother No problems noted. Surgical History H/O colonoscopy Social History Housing: House Alcohol intake: never Comment: pain 3-4 left knee and buttock Patient Tobacco Use Status: Former Tobacco user Smoked in Last 30 Days: No e-Cigarette/Vaping Use: Never Used Second Hand Smoke Exposure: No Use of substances other than those prescribed or required for medical reasons: No Advance Directives: No Advance Directives Information Provided: Yes Advance Directives Date on File: 09/16/23 Nutrition Risks: No Nutritional Risk service: No Current occupational status: retired Cognitive needs: Yes (cane) Hearing needs: No Vision needs: Yes (Glasses) Meds Allergies Allergy/AdvReac Type Severity Reaction Status Date / Time hydrocortisone Allergy Severe SWELLING Verified 06/19/24 14:06 [HYDROCORTISONE] NSAIDS (Non-Steroidal Allergy Severe BLEEDING Verified 06/19/24 14:06 Anti-Inflamma [NSAIDS (NON-STEROIDAL ANTI-INFLAMMA] aspirin Allergy Unknown bleeding Verified 06/19/24 14:06 doxycycline AdvReac Severe in-effectiv Verified 06/19/24 14:06 e Active Medications: Current Medications Magnesium Sulfate (Magnesium Sulfate/H2o) 2 gm in 50 mls @ 25 mls/hr IV ONCE ONE Stop: 06/19/24 16:46 Last Admin: 06/19/24 15:01 Dose: 25 mls/hr Home Medications ?Medication ?Instructions ?Recorded ?Confirmed ?Last Taken ?Type latanoprost 0.005 % eye drops 1 drp ophthalmic (eye) BEDTIME 11/17/21 06/19/24 06/18/24 History brimonidine 0.2 % eye drops 1 drp ophthalmic-Left DAILY 05/18/23 06/19/24 06/19/24 08:00 History albuterol sulfate 2.5 mg/3 mL 2.5 mg inhalation Q4H PRN 06/19/24 06/19/24 06/19/24 08:00 History (0.083 %) solution for nebulization shortness of breath or wheezing albuterol sulfate 90 mcg/actuation 2 puff inhalation Q4H PRN for 06/19/24 06/19/24 06/19/24 08:00 History aerosol inhaler wheezing chlorthalidone 25 mg tablet 25 mg PO DAILY 06/19/24 06/19/24 06/19/24 08:00 History insulin glargine 100 unit/mL (3 40 unit subcut BEDTIME 06/19/24 06/19/24 06/18/24 History mL) subcutaneous pen (Lantus Solostar U-100 Insulin) pseudoephedrine HCl 30 mg tablet 30 mg PO Q4H PRN nasal congestion 06/19/24 06/19/24 06/19/24 08:00 History venlafaxine 75 mg capsule,extended 75 mg PO DAILY 06/19/24 06/19/24 06/19/24 08:00 History release 24 hr Physical Exam 2 Vital Signs and Narrative: Vital Signs: Last Vital Signs Temp 98.2 F 06/19/24 16:20 Pulse 61 06/19/24 16:20 Resp 16 06/19/24 16:20 BP 111/68 06/19/24 16:20 Pulse Ox 93 06/19/24 16:20 O2 Del Method Nasal Cannula 06/19/24 16:20 O2 Flow Rate 3 06/19/24 16:20 BMI result Body Mass Index 34.1 General: AO X 3, no acute distress Resp: bilateral wheezes, no accesory muscle use CVS: S1,S2,RRR GI: +BS, NT, no distention Skin: No rash Neuro: motor grossly intact Psych: appropriate affect Results Labs 06/19/24 14:46 06/20/24 06:39 Labs: Laboratory Results - last 24 hr 06/19/24 06/19/24 06/19/24 14:43 14:46 15:00 MCV 86.9 MCH 29.2 MCHC 33.6 RDW 14.0 Plt Count 345 MPV 10.6 Immature Gran % (Auto) 1.2 H Neut % (Auto) 62.5 Lymph % (Auto) 22.0 [place] % (Auto) 8.6 Eos % (Auto) 5.3 H Baso % (Auto) 0.4 Lymph # (Auto) 1.7 [place] # (Auto) 0.7 Eos # (Auto) 0.4 Baso # (Auto) 0.0 Abs Immat Gran (auto) 0.09 H Absolute Neuts (auto) 4.8 Absolute Nucleated RBC 0.000 Nucleated RBC % (auto) 0.0 D-Dimer High Sensitivty 184 Anion Gap 13 Estim Creat Clear Calc 73.7 Estimated GFR > 60 Random Glucose 172 H Calcium 9.8 Total Bilirubin 0.6 AST 12 ALT 10 Alkaline Phosphatase 118 H Total Protein 6.6 Albumin 3.5 Influenza Type A (PCR) NEGATIVE Influenza Type B (PCR) NEGATIVE RSV RNA Qual (PCR) NEGATIVE SARS-CoV-2 RNA (RT-PCR) NEGATIVE Assessment and Plan (1) Asthma: Status: Acute (2) Acute and chronic respiratory failure with hypoxia: Status: Acute Plan 73/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 Quality Stroke Does the patient have a stroke diagnosis?: No VTE Prior VTE?: No VTE Risk Level:: Medical - moderate - high VTE Device Contraindication: Treatment Not Indicated VTE Drug Contraindication: N/A - Med Ordered
[2024-06-19 17:18] LABS: Estimated Average Glucose 143 mg/dL; Hemoglobin A1c % 6.6 % (<6.0)
[2024-06-19] MEDS: Enoxaparin Sodium 40 MG/0.4 ML SYRINGE SUBCUT (17:21)
[2024-06-19] MEDS: Insulin Glargine,Hum.rec.anlog 100 UNIT/ML 10 ML VIAL 40 UNIT SUBCUT (17:21)
--- NOTE | 2024-06-19 17:37 | PHA.MEDREC ---
Addendum entered by Mahendra Dick RPh 06/19/24 18:07: MED REC CHECKED BY [facility] Original Note: Pharmacy Consult ? Medication Reconciliation Pharmacy has completed the medication reconciliation. Confirmed medications with patient. She confirmed his Lantus Solostar 40units at bedtime, he last took that last night. He is also on an Insulin KwikPen 20 units TID and he states he last took one dose this morning. The patient also states he has yet to start a Zolpidem 5mg regimen 1/2 tablet at bedtime but he said he has not picked that up form his pharmacy yet.
[2024-06-19] MEDS: Albuterol/Iprat 2.5/0.5MG 3 ML AMPUL.NEB INHALE (19:56)
[2024-06-19 20:53] LABS: Glucose, Whole Blood 227 mg/dL (60-115)
[2024-06-19] MEDS: Insulin Lispro 100 UNIT/ML 3 ML VIAL SUBCUT (20:53)
[2024-06-19] MEDS: Venlafaxine HCl ER 150 MG CAP.ER.24H PO (21:02)
[2024-06-19] MEDS: Gabapentin 300 MG CAPSULE PO (21:03)
[2024-06-19] MEDS: methylPREDNISolone Sod Succ 40 MG/ML VIAL IVPUSH (21:03)
--- NOTE | 2024-06-19 22:13 | MHC.EDTECH ---
2200 rounding done ,vitals taken ,And Patient belonging list done ,Patient up sitting in bed ,watching television ,Call rivas within Pt reach .
[2024-06-19] MEDS: Latanoprost 0.005 % Ophth Sol 2.5 ML DROPS 1 DROP EYE-BOTH (23:28)
[2024-06-20] VITALS (9 sets, daily range): BP systolic 141–148; BP diastolic 56–72; PULSE 59–70; RESP 12–20; TEMP 36.4–36.8; O2SAT 90–96
[2024-06-20] MEDS: traMADoL HCL 50 MG TABLET 25 MG PO (03:05)
[2024-06-20] MEDS: Omeprazole 20 MG CAPSULE.DR PO (06:40)
[2024-06-20 07:28] LABS: Alanine Aminotransferase 12 U/L (0-40); Albumin Level 3.6 g/dL (3.5-5.0); Alkaline Phosphatase 123 U/L (39-117); Anion Gap 13 (12-20); Aspartate Amino Transferase 13 U/L (5-37); Bilirubin Total 0.4 mg/dL (0.0-1.0); Blood Urea Nitrogen 23 mg/dL (9-16); Calcium 9.9 mg/dL (8.4-10.2); Carbon Dioxide 29 mmol/L (22-29); Chloride 99 mmol/L (96-108); Creatinine Clr Calc Pharmacy 89.4; Estimated Glomerular Filt Rate > 60; Glucose Random 194 mg/dL (60-115); Sodium 137 mmol/L (135-145); Total Protein 6.9 g/dL (6.5-8.0)
[2024-06-20] MEDS: Albuterol/Iprat 2.5/0.5MG 3 ML AMPUL.NEB INHALE ×3 (07:34→14:24)
[2024-06-20] MEDS: Insulin Lispro 100 UNIT/ML 3 ML VIAL SUBCUT ×2 (07:48→13:17)
[2024-06-20] MEDS: 0.9 % Sodium Chloride Flush 3 ML SYRINGE IVFLUSH (07:50)
[2024-06-20] MEDS: Gabapentin 300 MG CAPSULE PO (08:05)
[2024-06-20] MEDS: Venlafaxine HCl ER 75 MG CAP.ER.24H PO (08:05)
[2024-06-20] MEDS: methylPREDNISolone Sod Succ 40 MG/ML VIAL IVPUSH (08:05)
[2024-06-20] MEDS: hydroCHLOROthiazide 25 MG TABLET PO (08:05)
[2024-06-20] MEDS: Metoprolol Succinate ER 50 MG TAB.ER.24H PO (08:06)
--- NOTE | 2024-06-20 10:55 | MHC.CM.PN ---
CM met with Patient at bedside, in the ED and addressed IMM with him (original was given to Patient and a copy will be placed on the chart). Patient lives in a house with his /HCP./Rabia (Daughter/Rachel is the Alternate HCP) and he uses a cane to assist with mobility. Home/self care is the goal and CM has initiated and will follow fir dc planning. PCP is Dr. Cherry and Rabia/ will transport to home.
[2024-06-20] MEDS: Brimonidine Tartrate 0.2% Oph 5 ML BOTTLE 1 DROP EYE-LEFT (11:02)
--- NOTE | 2024-06-20 11:03 | PC.NURSE ---
delay in eye drop d/t medication not being readily available in [facility]. medication delivered from pharmacy/administered.
--- NOTE | 2024-06-20 12:30 | PC.NURSE ---
pt completed ambulatory O2 trial w/ RT - per RT, pt tolerated trial well. on 2L via NC - resting at 90%-94% during exertion and 97% while sitting in hospital bed at rest. no sob/wob noted. respirations even/unlabored. plan of care ongoing.
--- NOTE | 2024-06-20 13:57 | MHC.CM.PN ---
Patient has been medically cleared for dc to home today, self care.
--- NOTE | 2024-06-20 14:14 | PM.DS ---
DS: Providers Provider Date of Service: 06/20/24 Date of admission: 06/19/24 16:53 Primary care physician: Hector Cherry MD DS: Diagnosis Discharge Diagnosis (1) Asthma: Status: Acute (2) Acute and chronic respiratory failure with hypoxia: Status: Acute DS: Summary Hospital Course Hospital Course: A 73-year-old male with COPD (not on home oxygen), HTN, and insulin dependent diabetes presents with shortness of breath. He was recently ill and was prescribed a Z-pack and prednisone by his shopping centre manager (Dr. Rojas), which he completed 3 days ago. He continues to experience shortness of breath, wheezing, and occasional cough, but denies fever or chills. On examination, he is hypoxic with an O2 saturation of 86% on room air, improving to 93% on 3L oxygen. Chest X-ray shows no acute findings. Tests for flu, RSV, and COVID-19 are negative. D-dimer is 184, WNC normal. He is treated with IV steroids and nebulized bronchodilators and reports feeling better. Hospital course: Patient presented wt sob and found to have acute exacerbation of copd following recent exacerbation that was treated with azithro and Prednisone. She was experieincing sob and was hypoixic into 80s, he was treated with IV steroid and bronchodilators and has have rapid recovery, he is off O2, he was assess for home O2 and did not qualify. He will be discharged prednisone raymond Time Attestation Discharge Coordination Time (in mins): 40 Quality: Safe Use of Opioids Does Pt have an Active Cancer Diagnosis on the Problem List?: No Quality: Stroke Does the patient have a stroke diagnosis?: No Physical Exam Vital Signs: Vital Signs: Last Vital Signs Temp 97.9 F 06/20/24 06:05 Pulse 62 06/20/24 11:21 Resp 18 06/20/24 11:21 BP 148/66 H 06/20/24 08:05 Pulse Ox 92 06/20/24 06:05 O2 Del Method Nasal Cannula 06/20/24 06:05 O2 Flow Rate 2 06/20/24 06:05 BMI result Body Mass Index 34.1 DS: Data Data Completed and Pending Labs on day of discharge: Laboratory Results - last 24 hr 06/19/24 06/19/24 06/19/24 14:43 14:46 15:00 WBC 7.7 RBC 5.21 Hgb 15.2 Hct 45.3 MCV 86.9 MCH 29.2 MCHC 33.6 RDW 14.0 Plt Count 345 MPV 10.6 Immature Gran % (Auto) 1.2 H Neut % (Auto) 62.5 Lymph % (Auto) 22.0 [place] % (Auto) 8.6 Eos % (Auto) 5.3 H Baso % (Auto) 0.4 Lymph # (Auto) 1.7 [place] # (Auto) 0.7 Eos # (Auto) 0.4 Baso # (Auto) 0.0 Abs Immat Gran (auto) 0.09 H Absolute Neuts (auto) 4.8 Absolute Nucleated RBC 0.000 Nucleated RBC % (auto) 0.0 D-Dimer High Sensitivty 184 Sodium 141 Potassium 4.2 Chloride 102 Carbon Dioxide 30 H Anion Gap 13 BUN 21 H Creatinine 1.03 Estim Creat Clear Calc 73.7 Estimated GFR > 60 POC Glucose Random Glucose 172 H Estimat Average Glucose 143 Hemoglobin A1c % 6.6 H Calcium 9.8 Total Bilirubin 0.6 AST 12 ALT 10 Alkaline Phosphatase 118 H Total Protein 6.6 Albumin 3.5 Influenza Type A (PCR) NEGATIVE Influenza Type B (PCR) NEGATIVE RSV RNA Qual (PCR) NEGATIVE SARS-CoV-2 RNA (RT-PCR) NEGATIVE 06/19/24 06/20/24 20:49 06:39 WBC RBC Hgb Hct MCV MCH MCHC RDW Plt Count MPV Immature Gran % (Auto) Neut % (Auto) Lymph % (Auto) [place] % (Auto) Eos % (Auto) Baso % (Auto) Lymph # (Auto) [place] # (Auto) Eos # (Auto) Baso # (Auto) Abs Immat Gran (auto) Absolute Neuts (auto) Absolute Nucleated RBC Nucleated RBC % (auto) D-Dimer High Sensitivty Sodium 137 Potassium 4.0 Chloride 99 Carbon Dioxide 29 Anion Gap 13 BUN 23 H Creatinine 0.85 Estim Creat Clear Calc 89.4 Estimated GFR > 60 POC Glucose 227 H Random Glucose 194 H Estimat Average Glucose Hemoglobin A1c % Calcium 9.9 Total Bilirubin 0.4 AST 13 ALT 12 Alkaline Phosphatase 123 H Total Protein 6.9 Albumin 3.6 Influenza Type A (PCR) Influenza Type B (PCR) RSV RNA Qual (PCR) SARS-CoV-2 RNA (RT-PCR) Discharge Plan Discharge Anticipated Discharge Date/Time: 06/20/24 13:52 Patient Disposition: Home, Self-Care Discharge Diagnosis: acute hypoxic respiratory failure due to COPD exacerbation. Referrals: Hector Cherry MD [Primary Care Provider] - 1 Week Discharge Medications: New prednisone 10 mg tablet See Taper PO DAILY Qty: 20 0RF Taper: Prednisone 30 mg daily for 3 Days and 0 Hour 20 mg daily for 3 Days and 0 Hour 10 mg daily for 3 Days and 0 Hour Continued (DME) insulin syringe,safetyneedle 0.3 mL 29 x 1/2 syringe See Rx Instructions .Route Qty: 100 0RF Rx Instructions: As directed (DME) Comfort EZ Pen [place] 32 gauge x 5/16 needle See Rx Instructions .Route Qty: 100 0RF Rx Instructions: Use 3 times daily with insulin metoprolol succinate 50 mg tablet extended release 24 hr 50 mg PO DAILY Qty: 90 1RF pantoprazole 20 mg tablet,delayed release (DR/EC) 20 mg PO DAILY Qty: 90 1RF insulin lispro [Humalog KwikPen Insulin] 100 unit/mL insulin pen 20 unit subcut TID 30 Days Qty: 18 1RF venlafaxine 75 mg capsule,extended release 24hr 75 mg PO DAILY albuterol sulfate 2.5 mg /3 mL (0.083 %) solution for nebulization 2.5 mg inhalation Q4H PRN (Reason: shortness of breath or wheezing) chlorthalidone 25 mg tablet 25 mg PO DAILY pseudoephedrine HCl 30 mg tablet 30 mg PO Q4H PRN (Reason: nasal congestion) Rx Instructions: DNExceed 3 doses/24h albuterol sulfate 90 mcg/actuation HFA aerosol inhaler 2 puff inhalation Q4H PRN (Reason: for wheezing) insulin glargine [Lantus Solostar U-100 Insulin] 100 unit/mL (3 mL) insulin pen 40 unit subcut BEDTIME gabapentin 300 mg capsule 300 mg PO BID Qty: 180 1RF latanoprost 0.005 % drops 1 drp ophthalmic (eye) BEDTIME brimonidine 0.2 % drops 1 drp ophthalmic-Left DAILY ipratropium-albuterol 0.5 mg-3 mg(2.5 mg base)/3 mL solution for nebulization 3 ml inhalation QID 30 Days Qty: 360 3RF venlafaxine 150 mg capsule,extended release 24hr 150 mg PO BEDTIME Qty: 30 0RF clonazepam 0.5 mg tablet 0.5 mg PO DAILY@1700 Qty: 30 0RF Rx Instructions: administer 30 minutes before bedtime Discharge Orders: Discharge Order (Routine); Ordered 06/20/24 Ordered By: Lobito Ramey Diet: Advance to usual diet Activity on Discharge: As tolerated Stand Alone Forms: Patient Portal Discharge page Print Language: Pashto Care Plan Goals: Recovery from COPD and prevent rehospitalization Health Concerns: COPD exacerbation with acute hypoxic respiratory failure Plan of Treatment: use inhalers as recommended, take prednisone as recommended, follow-up with your lung doctor in a week to 2. Please call for appointment. Also follow up with your primary care doctor within a week, call for appointment. Assessment: see above
--- NOTE | 2024-06-20 14:47 | PC.NURSE ---
pt no longer being admitted per dr. abdalla - pt provided w/ discharge paperwork.
== END 2024-06-20 14:51 | disposition home or self-care (01) | DRG 190 ==
LOC: HO.ED 14:48 → HO.EDOVER 17:02 → HO.S3 06-20 13:12 → HO.EDOVER 06-20 14:00
PROVIDERS: Physician Assistant; Admitting Provider Internal Medicine; Emergency Provider Emergency Medicine; PCP Internal Medicine; Visit Provider Internal Medicine
DX: J44.1 Chronic obstructive pulmonary disease with (acute) exacerbation (principal); J96.01 Acute respiratory failure with hypoxia; G47.33 Obstructive sleep apnea (adult) (pediatric); I10 Essential (primary) hypertension; E11.40 Type 2 diabetes mellitus with diabetic neuropathy, unspecified; F39 Unspecified mood [affective] disorder; K21.9 Gastro-esophageal reflux disease without esophagitis; Z20.822 Contact with and (suspected) exposure to COVID-19; Z79.4 Long term (current) use of insulin; Z79.899 Other long term (current) drug therapy
CPT/HCPCS: 0241U; 36415; 71045; 80053; 82947; 83036; 85025; 85379; 99212; 99221; 99285; J1650; J2919; J3475

== ENCOUNTER → 2024-06-19 16:53 | Outpatient (BNV) | payer MEDICARE, SELFPAY | PROVIDERS: Admitting Provider Internal Medicine; Emergency Provider Emergency Medicine; PCP Internal Medicine; Visit Provider Internal Medicine | DX: J45.909 Unspecified asthma, uncomplicated (principal); J96.21 Acute and chronic respiratory failure with hypoxia | CPT/HCPCS: 99223; 99239 ==

== ENCOUNTER 2024-06-24 12:41 | Inpatient (IN) | payer MEDICARE, SELFPAY ==
[2024-06-24] VITALS (7 sets, daily range): BP systolic 123–150; BP diastolic 56–72; PULSE 58–80; RESP 12–20; TEMP 36.3–36.8; O2SAT 88–95; BMI 34.0
--- NOTE | ~2024-06-24 | XR_ITS ---
EXAMINATION: XR CHEST CLINICAL INFORMATION: Dyspnea. COMPARISON: Chest radiograph 06/19/2024. TECHNIQUE: 2 views of the chest were obtained. FINDINGS: Normal appearance of the cardiomediastinal silhouette. Redemonstration of mild diffuse bronchial wall thickening without consolidation. No pleural effusion. No pneumothorax. Thoracic spondylosis. No acute osseous findings. XR/XR chest 2V IMPRESSION: Stable compared to 06/19/2024. Electronically signed by: Joselyn Barrera MD 06/24/2024 03:27 PM EDT
--- NOTE | 2024-06-24 12:43 | ECG_ITS ---
Test Reason : SOB Blood Pressure : / mmHG Vent. Rate : 073 BPM Atrial Rate : 073 BPM P-R Int : 148 ms QRS Dur : 100 ms QT Int : 402 ms P-R-T Axes : 037 001 040 degrees QTc Int : 442 ms Normal sinus rhythm Normal ECG When compared with ECG of 23-APR-2023 20:06, Heart rate has increased Referred By: Generic ED Physician Electronically Signed By:NADJA MANRIQUE
--- NOTE | 2024-06-24 12:51 | ED.GENADULT ---
HPI - General Adult General Chief complaint: Dyspnea Stated complaint: Diff breathing Time Seen by Provider: 06/24/24 12:56 Source: patient, family and old records reviewed Mode of arrival: ambulatory Limitations: no limitations History of Present Illness ED Provider: MELISSA STERN narrative: 73 yo male with PMH of asthma not on home 02, anxiety, obesity, DM, COPD, VIDA on CPAP, asthma, Crohns disease, just seen here 06/19 to 06/20 with asthma/copd was DC home off O2 started on prednisone taper he states [facility] pharmacy states they did not have prednisone and called the doctor and left a message - clearly unlikely given it was the hospitalist service. He reports he was never better and he states every year he has asthma exacerbation. He denies fevers, his chest is tight and has no sputum production. complaint: asthma Onset (ago): day(s) (6) Location: chest Radiation: non-radiation Severity: moderate Relieving factors: none Exacerbating factors: movement and other (coughing) Associated symptoms: cough Treatments prior to arrival: other (albuterol therapy) Related Data Home Medications ?Medication ?Instructions ?Recorded ?Confirmed latanoprost 0.005 % eye drops 1 drp ophthalmic (eye) BEDTIME 11/17/21 06/19/24 brimonidine 0.2 % eye drops 1 drp ophthalmic-Left DAILY 05/18/23 06/19/24 albuterol sulfate 2.5 mg/3 mL 2.5 mg inhalation Q4H PRN 06/19/24 06/19/24 (0.083 %) solution for nebulization shortness of breath or wheezing albuterol sulfate 90 mcg/actuation 2 puff inhalation Q4H PRN for 06/19/24 06/19/24 aerosol inhaler wheezing chlorthalidone 25 mg tablet 25 mg PO DAILY 06/19/24 06/19/24 insulin glargine 100 unit/mL (3 40 unit subcut BEDTIME 06/19/24 06/19/24 mL) subcutaneous pen (Lantus Solostar U-100 Insulin) pseudoephedrine HCl 30 mg tablet 30 mg PO Q4H PRN nasal congestion 06/19/24 06/19/24 venlafaxine 75 mg capsule,extended 75 mg PO DAILY 06/19/24 06/19/24 release 24 hr Previous Rx's ?Medication ?Instructions ?Recorded insulin syringe,safetyneedle 0.3 #100 ea 09/28/21 mL 29 gauge x 1/2 pen needle, diabetic 32 gauge x #100 ea 04/09/22/16 (Comfort EZ Pen [place]) ipratropium 0.5 mg-albuterol 3 mg 3 ml inhalation QID COPD, SEVERE 05/24/23 (2.5 mg base)/3 mL nebulization 30 days #360 mL soln metoprolol succinate 50 mg 50 mg PO DAILY #90 tabs 11/25/23 tablet,extended release 24 hr pantoprazole 20 mg tablet,delayed 20 mg PO DAILY #90 tabs 11/25/23 release gabapentin 300 mg capsule 300 mg PO BID #180 caps 04/10/24 clonazepam 0.5 mg tablet 0.5 mg PO DAILY@1700 #30 tabs 05/29/24 venlafaxine 150 mg 150 mg PO BEDTIME #30 caps 05/29/24 capsule,extended release 24 hr insulin lispro 100 unit/mL 20 unit (0.2 mL) subcut TID 30 06/19/24 subcutaneous pen (Humalog Kwik days #18 mL (U-100) Insulin) prednisone 10 mg tablet See Taper PO DAILY #20 tabs 06/20/24 Allergies Allergy/AdvReac Type Severity Reaction Status Date / Time hydrocortisone Allergy Severe SWELLING Verified 06/24/24 12:54 [HYDROCORTISONE] NSAIDS (Non-Steroidal Allergy Severe BLEEDING Verified 06/24/24 12:54 Anti-Inflamma [NSAIDS (NON-STEROIDAL ANTI-INFLAMMA] aspirin Allergy Unknown bleeding Verified 06/24/24 12:54 doxycycline AdvReac Severe in-effectiv Verified 06/24/24 12:54 e Review of Systems Review of Systems: Constitutional : No Fever, No Chills ENT/Mouth : No Hoarseness, No sore throat, No Rhinorrhea Eyes: No Redness, No Discharge, No Vision Changes Cardiovascular : No Chest Pain, positive SOB, positive Dyspnea on Exertion, No Edema Respiratory : positive Cough, No Sputum, positive Wheezing, Gastrointestinal : No Nausea, No Vomiting, No Diarrhea, No abdominal Pain Genitourinary : No Dysuria, No Hematuria Musculoskeletal : No joint pain, No Myalgias Skin : No rash Neuro : No Weakness, No Numbness, No Headache Psych : No anxiety, depression Heme/Lymph: No Bruising, No Bleeding Endocrine : No Polyuria, No Polydipsia All other systems reviewed and are negative [facility] Past Medical History Attestation statement: The following information was validated with the patient. Source: old records reviewed Medical History Class 2 severe obesity with body mass index (BMI) of 35 to 39.9 with serious comorbidity Bilateral primary osteoarthritis of knee Osteoarthritis of right knee Diabetes mellitus type 2, uncontrolled COPD exacerbation Arthritis of both knees Chronic pain syndrome Allergic rhinitis VIDA on CPAP COPD (chronic obstructive pulmonary disease) Lumbar radiculopathy Allergic rhinitis Asthma Benign prostatic hyperplasia Back pain Sleep apnea HTN (hypertension) Lumbar spondylosis Tendon tear Depression Arthritis Asthma Crohn disease Surgical History H/O colonoscopy Family History Family History Father No problems noted. Mother No problems noted. Social History Social History Housing: House Alcohol intake: never Comment: pain 3-4 left knee and buttock Patient Tobacco Use Status: Former Tobacco user e-Cigarette/Vaping Use: Never Used Second Hand Smoke Exposure: No Advance Directives: No Advance Directives Information Provided: No Advance Directives Date on File: 09/16/23 Do you have a plan to hurt others: No Plan service: No Current occupational status: retired Cognitive needs: Yes (cane) Hearing needs: No Vision needs: Yes (Glasses) Physical Exam ED Vital Signs: Vital Signs - 24 hr 06/24/24 12:51 06/24/24 13:06 06/24/24 14:00 Temperature 97.3 F 97.8 F Pulse Rate 75 80 58 Respiratory Rate 20 18 12 Blood Pressure 150/72 H 125/56 L Pulse Oximetry 88 L 95 Oxygen Delivery Method Room Air Nasal Cannula Oxygen Flow Rate 2 06/24/24 15:14 Temperature Pulse Rate 61 Respiratory Rate 12 Blood Pressure Pulse Oximetry Oxygen Delivery Method Oxygen Flow Rate BMI result Body Mass Index 34.0 Appearance: Alert. Oriented X3. mild acute distress. Eyes: Pupils equal, round and reactive to light. ENT: Pharynx normal. Neck: Normal inspection. Neck supple. CVS: Normal heart rate and rhythm. Pulses normal. Respiratory: Mild respiratory distress- retractions tachypnea. Breath sounds diffuse insp and exp wheezes Abdomen: Soft and nontender. Skin: Skin warm and dry. Normal skin color. Normal skin turgor. Extremities: No lower extremity edema. No calf ttp Neuro: Oriented X 3. No motor deficit. No sensory deficit. Course Course Course Narrative: This is a rapid medical exam performed by Tayla Alvarado [employer]: Additional HPI, ROS, PE not included below will be deferred to primary provider. Patient is a 73-year-old male with history of asthma, COPD, depression, Crohn's disease, VIDA, mild cognitive disorder, diabetes presenting with dyspnea and wheezing. States was recently admitted, discharged with medications but when he went to pick them up was told no prescriptions were sent in for him. Also c/o abdominal pain. Oxygen 89% on room air in triage, states his baseline is 94-95%, diffuse wheezing throughout. Plan: devulcanizer charger notified, patient brought directly to a room in the main Medications Administered Discontinued Medications Generic Name Dose Route Start Last Admin Trade Name Freq PRN Reason Stop Dose Admin Albuterol/Ipratropium 3 ml 06/24/24 15:14 06/24/24 15:15 Albuterol/Iprat 2.5/0.5mg 3 Ml Ampul.Neb INHALE 06/24/24 15:15 3 ml ONCE ONE Administration Albuterol Sulfate 2.5 mg/ 0 mg 06/24/24 13:06 06/24/24 13:10 Albuterol/Ipratropium 3 ml INHALE 06/24/24 13:07 1 dose ONCE ONE Administration Magnesium Sulfate 2 gm in 50 mls @ 150 mls/hr 06/24/24 12:56 06/24/24 13:58 Magnesium Sulfate/H2o IV 06/24/24 13:15 Infused ONCE ONE Infusion Methylprednisolone Sodium Succinate 60 mg 06/24/24 12:56 06/24/24 13:20 Methylprednisolone Sod Succ 125 Mg/2 Ml Vial IVPUSH 06/24/24 12:57 60 mg ONCE ONE Administration Medical Decision Making Medical Decision Making MDM Narrative: 73 yo male with PMH of asthma not on home 02, anxiety, obesity, DM, COPD, VIDA on CPAP, asthma, Crohns disease here with worsening asthma in setting of failed treatment due to not being able to get his steroids and therapy after discharge at this time will obtain labs, CXR, IV magnesium, IV solumedrol, anticipate admission, hypoxic on admission Differential Diagnosis Differential Diagnoses: The differential diagnosis associated with the presentation includes asthma, viral bronchitis Admission/Observation Consideration of admission/observation: Escalation of care including admission/observation considered after two therapies IV mag, IV steroids he is still 87% on RA at this time will need admission I cannot get his O2 up did attempt ambulation trial same results Consult Healthcare Provider Management of the patient was discussed with: Hospitalist Lab Data [facility] Lab Attestation statement: I reviewed the patient's lab results. 06/24/24 13:07 06/24/24 13:07 Labs: Lab Results 06/24/24 06/24/24 06/24/24 Range/Units 13:07 13:08 13:20 WBC 9.7 (4.8-10.8) X10*3/uL RBC 5.39 (4.60-5.80) X10*6/uL Hgb 15.3 (14.0-18.0) g/dl Hct 46.1 (42.0-52.0) % MCV 85.5 (80.0-98.0) fL MCH 28.4 (27.0-33.0) pg MCHC 33.2 (31.0-36.0) g/dl RDW 13.5 (11.0-16.0) % Plt Count 313 (160-400) X10*3/uL MPV 10.6 (9.4-12.4) fL Immature Gran % (Auto) 0.5 H (0.0-0.4) % Neut % (Auto) 65.0 (45-73) % Lymph % (Auto) 19.4 L (20-40) % [place] % (Auto) 9.5 (2-11) % Eos % (Auto) 5.2 H (0-4) % Baso % (Auto) 0.4 (0-2) % Lymph # (Auto) 1.9 (1.2-4.9) X10*3/uL [place] # (Auto) 0.9 (0.1-1.2) X10*3/uL Eos # (Auto) 0.5 H (0.0-0.4) X10*3/uL Baso # (Auto) 0.0 (0.0-0.2) X10*3/uL Abs Immat Gran (auto) 0.05 H (0.00-0.03) X10*3/uL Absolute Neuts (auto) 6.3 (2.0-8.3) x10*3/uL Absolute Nucleated RBC 0.000 (0.0-0.012) X10*3/uL Nucleated RBC % (auto) 0.0 (0.0-0.2) /100WBC PT 13.6 H (11.1-13.3) SEC INR 1.1 (0.9-1.1) VBG pH 7.43 (7.32-7.43) VBG pCO2 52 mmHg VBG pO2 111 mmHg VBG HCO3 35 H (22-26) mmol/L VBG O2 Saturation 100.0 % VBG Base Excess 9.0 mmol/L Sodium 141 (135-145) mmol/L Potassium 3.5 (3.3-5.1) mmol/L Chloride 101 (96-108) mmol/L Carbon Dioxide 29 (22-29) mmol/L Anion Gap 15 (12-20) BUN 23 H (9-16) mg/dL Creatinine 0.84 (0.5-1.4) mg/dL Estim Creat Clear Calc 90.3 Estimated GFR > 60 Random Glucose 172 H (60-115) mg/dL Calcium 9.3 D (8.4-10.2) mg/dL Total Bilirubin 0.5 (0.0-1.0) mg/dL AST 11 (5-37) U/L ALT 10 (0-40) U/L Alkaline Phosphatase 110 (39-117) U/L Troponin I High Sens < 2.7 D (<3.5-35.0) ng/L B-Natriuretic Peptide 40 (<100) pg/mL Total Protein 6.6 (6.5-8.0) g/dL Albumin 3.6 (3.5-5.0) g/dL Influenza Type A (PCR) (Negative) Influenza Type B (PCR) (Negative) RSV RNA Qual (PCR) (Negative) SARS-CoV-2 RNA (RT-PCR) (Negative) 06/24/24 Range/Units 13:33 WBC (4.8-10.8) X10*3/uL RBC (4.60-5.80) X10*6/uL Hgb (14.0-18.0) g/dl Hct (42.0-52.0) % MCV (80.0-98.0) fL MCH (27.0-33.0) pg MCHC (31.0-36.0) g/dl RDW (11.0-16.0) % Plt Count (160-400) X10*3/uL MPV (9.4-12.4) fL Immature Gran % (Auto) (0.0-0.4) % Neut % (Auto) (45-73) % Lymph % (Auto) (20-40) % [place] % (Auto) (2-11) % Eos % (Auto) (0-4) % Baso % (Auto) (0-2) % Lymph # (Auto) (1.2-4.9) X10*3/uL [place] # (Auto) (0.1-1.2) X10*3/uL Eos # (Auto) (0.0-0.4) X10*3/uL Baso # (Auto) (0.0-0.2) X10*3/uL Abs Immat Gran (auto) (0.00-0.03) X10*3/uL Absolute Neuts (auto) (2.0-8.3) x10*3/uL Absolute Nucleated RBC (0.0-0.012) X10*3/uL Nucleated RBC % (auto) (0.0-0.2) /100WBC PT (11.1-13.3) SEC INR (0.9-1.1) VBG pH (7.32-7.43) VBG pCO2 mmHg VBG pO2 mmHg VBG HCO3 (22-26) mmol/L VBG O2 Saturation % VBG Base Excess mmol/L Sodium (135-145) mmol/L Potassium (3.3-5.1) mmol/L Chloride (96-108) mmol/L Carbon Dioxide (22-29) mmol/L Anion Gap (12-20) BUN (9-16) mg/dL Creatinine (0.5-1.4) mg/dL Estim Creat Clear Calc Estimated GFR Random Glucose (60-115) mg/dL Calcium (8.4-10.2) mg/dL Total Bilirubin (0.0-1.0) mg/dL AST (5-37) U/L ALT (0-40) U/L Alkaline Phosphatase (39-117) U/L Troponin I High Sens (<3.5-35.0) ng/L B-Natriuretic Peptide (<100) pg/mL Total Protein (6.5-8.0) g/dL Albumin (3.5-5.0) g/dL Influenza Type A (PCR) NEGATIVE (Negative) Influenza Type B (PCR) NEGATIVE (Negative) RSV RNA Qual (PCR) NEGATIVE (Negative) SARS-CoV-2 RNA (RT-PCR) NEGATIVE (Negative) Independent Interpretation I performed an independent interpretation of an: EKG and Plain X-Ray (no pneumonia) Interpretation: Rate: 73 Rhythm: NSR [place]: left Normal P waves. Normal RUTH. Normal QRS complex. ST T wave : normal no ANDIE qTC: 442 prior studies: no acute ischemia The study has been interpreted contemporaneously by me. . Radiology Impression Discussion of test interpretation with radiology: I have reviewed the radiologist's reading. Independent Historian Clinical information obtained from an independent historian. History obtained from or confirmed by: Spouse External Record Review External record reviewed: Inpatient record Prescription Management I considered prescription management with: Antibiotic and Other Critical Care Time Critical Care Time Critical Care Time: Yes Total Critical Care Time: 45 Attestation: repeat nebs, IV magnesium resp dose, repeat assessments, review of records I attest to this time spent taking care of the patient Discharge Plan Discharge Clinical Impression: Asthma with exacerbation Patient Disposition: Admitted As Inpatient Prescriptions: No Action (DME) insulin syringe,safetyneedle 0.3 mL 29 x 1/2 syringe See Rx Instructions .Route Qty: 100 0RF Rx Instructions: As directed (DME) Comfort EZ Pen [place] 32 gauge x 5/16 needle See Rx Instructions .Route Qty: 100 0RF Rx Instructions: Use 3 times daily with insulin metoprolol succinate 50 mg tablet extended release 24 hr 50 mg PO DAILY Qty: 90 1RF pantoprazole 20 mg tablet,delayed release (DR/EC) 20 mg PO DAILY Qty: 90 1RF insulin lispro [Humalog KwikPen Insulin] 100 unit/mL insulin pen 20 unit subcut TID 30 Days Qty: 18 1RF venlafaxine 75 mg capsule,extended release 24hr 75 mg PO DAILY albuterol sulfate 2.5 mg /3 mL (0.083 %) solution for nebulization 2.5 mg inhalation Q4H PRN (Reason: shortness of breath or wheezing) chlorthalidone 25 mg tablet 25 mg PO DAILY pseudoephedrine HCl 30 mg tablet 30 mg PO Q4H PRN (Reason: nasal congestion) Rx Instructions: DNExceed 3 doses/24h albuterol sulfate 90 mcg/actuation HFA aerosol inhaler 2 puff inhalation Q4H PRN (Reason: for wheezing) insulin glargine [Lantus Solostar U-100 Insulin] 100 unit/mL (3 mL) insulin pen 40 unit subcut BEDTIME prednisone 10 mg tablet See Taper PO DAILY Qty: 20 0RF Taper: Prednisone 30 mg daily for 3 Days and 0 Hour 20 mg daily for 3 Days and 0 Hour 10 mg daily for 3 Days and 0 Hour gabapentin 300 mg capsule 300 mg PO BID Qty: 180 1RF latanoprost 0.005 % drops 1 drp ophthalmic (eye) BEDTIME brimonidine 0.2 % drops 1 drp ophthalmic-Left DAILY ipratropium-albuterol 0.5 mg-3 mg(2.5 mg base)/3 mL solution for nebulization 3 ml inhalation QID 30 Days Qty: 360 3RF venlafaxine 150 mg capsule,extended release 24hr 150 mg PO BEDTIME Qty: 30 0RF clonazepam 0.5 mg tablet 0.5 mg PO DAILY@1700 Qty: 30 0RF Rx Instructions: administer 30 minutes before bedtime Print Language: Telugu
[2024-06-24] MEDS: Albuterol Sulfate 2.5 MG, Albuterol/Iprat 2.5/0.5MG 3 ML 3 ML INHALE (13:10)
[2024-06-24 13:19] LABS: Basophils Percent Auto 0.4 % (0-2); Eosinophils Absolute Auto 0.5 X10*3/uL (0.0-0.4); Eosinophils Percent Auto 5.2 % (0-4); Hematocrit 46.1 % (42.0-52.0); Hemoglobin 15.3 g/dl (14.0-18.0); Imm Gran Abs Auto 0.05 X10*3/uL (0.00-0.03); Imm Gran Pct Auto 0.5 % (0.0-0.4); Lymphocytes Absolute Auto 1.9 X10*3/uL (1.2-4.9); Lymphocytes Percent Auto 19.4 % (20-40); MANUAL DIFF FLAG NO; Mean Corpuscular HGB Conc 33.2 g/dl (31.0-36.0); Mean Corpuscular Hemoglobin 28.4 pg (27.0-33.0); Mean Corpuscular Volume 85.5 fL (80.0-98.0); Mean Platelet Volume 10.6 fL (9.4-12.4); Monocytes Absolute Auto 0.9 X10*3/uL (0.1-1.2); Monocytes Percent Auto 9.5 % (2-11); Neutrophils Absolute Auto 6.3 x10*3/uL (2.0-8.3); Platelet Count 313 X10*3/uL (160-400); Red Blood Count 5.39 X10*6/uL (4.60-5.80); Red Cell Distribution Width 13.5 % (11.0-16.0); White Blood Count 9.7 X10*3/uL (4.8-10.8)
[2024-06-24] MEDS: Magnesium Sulfate/H2O 2 GM/50 ML PIGGYBACK IV (13:19)
[2024-06-24] MEDS: methylPREDNISolone Sod Succ 125 MG/2 ML VIAL 60 MG IVPUSH (13:20)
[2024-06-24 13:23] LABS: Venous Blood Gas Refer to POC result
[2024-06-24 13:24] LABS: VBG HCO3 35 mmol/L (22-26); VBG pCO2 52 mmHg; VBG pH 7.43 (7.32-7.43); VBG pO2 111 mmHg
[2024-06-24 13:32] LABS: INTERNATIONAL NORM RATIO 1.1 (0.9-1.1); Prothrombin Time 13.6 SEC (11.1-13.3)
[2024-06-24 13:36] LABS: Alanine Aminotransferase 10 U/L (0-40); Albumin Level 3.6 g/dL (3.5-5.0); Alkaline Phosphatase 110 U/L (39-117); Anion Gap 15 (12-20); Aspartate Amino Transferase 11 U/L (5-37); Bilirubin Total 0.5 mg/dL (0.0-1.0); Blood Urea Nitrogen 23 mg/dL (9-16); Calcium 9.3 mg/dL (8.4-10.2); Carbon Dioxide 29 mmol/L (22-29); Chloride 101 mmol/L (96-108); Creatinine Clr Calc Pharmacy 90.3; Estimated Glomerular Filt Rate > 60; Glucose Random 172 mg/dL (60-115); Potassium 3.5 mmol/L (3.3-5.1); Sodium 141 mmol/L (135-145); Total Protein 6.6 g/dL (6.5-8.0)
[2024-06-24 13:42] LABS: B Type Natriuretic Peptide 40 pg/mL (<100)
[2024-06-24 13:48] LABS: Troponin-I High Sensitivity < 2.7 ng/L (<3.5-35.0)
[2024-06-24 14:35] LABS: Influenza A PCR NEGATIVE (Negative); Influenza B PCR NEGATIVE (Negative); Resp Syncy Virus RNA Qual PCR NEGATIVE (Negative); SARS COV2 PCR INHOUSE NEGATIVE (Negative)
[2024-06-24] MEDS: Albuterol/Iprat 2.5/0.5MG 3 ML AMPUL.NEB INHALE ×2 (15:15→21:07)
--- NOTE | 2024-06-24 15:44 | PC.NURSE ---
patient participated with MD in walking trial and maintained saturations well. upon discharge planning pt was sitting on stretcher after walking on room air and saturations 85-88%, MD made aware and pt placed back on 1.5L NC with recovery to 93%
--- NOTE | 2024-06-24 17:05 | PM.IMHP ---
History of Present Illness Date of Service: 06/24/24 Attending physician on admission: Diogo Pinto Chief Complaint: SOB Pt is a 73-year-old male with a PMH significant for?asthma/COPD overlap syndrome not on home O2, HTN, insulin-dependent type 2 diabetes, peripheral neuropathy, GERD, and mood disorder who presents to the ED with?shortness of breath for the past 2-3 days. Patient was recently discharged from the hospital 4 days prior on 06/20 after being admitted for similar symptoms and treated for asthma/COPD overlap exacerbation. Was discharged on a prednisone taper, however patient states that this was not available at the pharmacy when he went to pick it up. Has thus not been on steroids since discharge. Initially felt okay, but shortness of breath and difficulty breathing slowly increased and were not alleviated by home inhalers. Also complains wheezing occasional dry cough. No fever or chills. Denies chest pain/pressure, palpitations. No nausea, vomiting, abdominal pain. Patient was treated in the emergency room and underwent ambulation trial where he desatted into the mid 80s. Upon return to his room he was placed on 2 L NC where he continued to be hypoxic as low as 88%, which was improved on 3L. In the ED pt was found to be hypoxic as low as 88% on 2 L NC after ambulation. Labs were grossly unremarkable and baseline for patient. No leukocytosis. Stable H&H. No significant electrolyte abnormalities. Renal and hepatic function WNL. Troponins negative. CXR negative for acute findings, stable compared to previous [id number]. EKG demonstrated normal sinus rhythm without evidence of significant ST elevations or depressions. Pt was treated with DuoNebs, Mag sulfate, and Solu-Medrol. Pt will be admitted to the hospital for treatment and further evaluation of acute hypoxic respiratory failure in the setting of asthma/COPD overlap syndrome exacerbation. [facility] Medical History Class 2 severe obesity with body mass index (BMI) of 35 to 39.9 with serious comorbidity Bilateral primary osteoarthritis of knee Osteoarthritis of right knee Diabetes mellitus type 2, uncontrolled COPD exacerbation Arthritis of both knees Chronic pain syndrome Allergic rhinitis VIDA on CPAP COPD (chronic obstructive pulmonary disease) Lumbar radiculopathy Allergic rhinitis Asthma Benign prostatic hyperplasia Back pain Sleep apnea HTN (hypertension) Lumbar spondylosis Tendon tear Depression Arthritis Asthma Crohn disease Family History Father No problems noted. Mother No problems noted. Surgical History H/O colonoscopy Social History Housing: House Alcohol intake: never Comment: pain 3-4 left knee and buttock Patient Tobacco Use Status: Former Tobacco user e-Cigarette/Vaping Use: Never Used Second Hand Smoke Exposure: No Advance Directives: No Advance Directives Information Provided: No Advance Directives Date on File: 09/16/23 Do you have a plan to hurt others: No Plan service: No Current occupational status: retired Cognitive needs: Yes (cane) Hearing needs: No Vision needs: Yes (Glasses) Meds Allergies Allergy/AdvReac Type Severity Reaction Status Date / Time hydrocortisone Allergy Severe SWELLING Verified 06/24/24 12:54 [HYDROCORTISONE] NSAIDS (Non-Steroidal Allergy Severe BLEEDING Verified 06/24/24 12:54 Anti-Inflamma [NSAIDS (NON-STEROIDAL ANTI-INFLAMMA] aspirin Allergy Unknown bleeding Verified 06/24/24 12:54 doxycycline AdvReac Severe in-effectiv Verified 06/24/24 12:54 e Home Medications ?Medication ?Instructions ?Recorded ?Confirmed ?Last Taken ?Type latanoprost 0.005 % eye drops 1 drp ophthalmic-Left BEDTIME 11/17/21 06/24/24 06/18/24 History brimonidine 0.2 % eye drops 1 drp ophthalmic-Left BID 05/18/23 06/24/24 06/24/24 09:00 History albuterol sulfate 2.5 mg/3 mL 2.5 mg inhalation Q4H PRN 06/19/24 06/24/24 06/19/24 08:00 History (0.083 %) solution for nebulization shortness of breath or wheezing albuterol sulfate 90 mcg/actuation 2 puff inhalation Q4H PRN for 06/19/24 06/24/24 06/19/24 08:00 History aerosol inhaler wheezing chlorthalidone 25 mg tablet 25 mg PO DAILY 06/19/24 06/24/24 06/24/24 09:00 History insulin glargine 100 unit/mL (3 40 unit subcut BEDTIME 06/19/24 06/24/24 06/18/24 History mL) subcutaneous pen (Lantus Solostar U-100 Insulin) pseudoephedrine HCl 30 mg tablet 30 mg PO Q4H PRN nasal congestion 06/19/24 06/24/24 06/19/24 08:00 History venlafaxine 75 mg capsule,extended 75 mg PO DAILY 06/19/24 06/24/24 06/24/24 09:00 History release 24 hr insulin lispro 100 unit/mL 20 unit subcut TIDAC 06/24/24 06/24/24 06/24/24 09:00 History subcutaneous pen (Humalog KwikPen (U-100) Insulin) pantoprazole 20 mg tablet,delayed 20 mg PO DAILY@0630 06/24/24 06/24/24 06/24/24 09:00 History release timolol maleate 0.5 % eye drops 1 drp ophthalmic-Left BID 06/24/24 06/24/24 06/24/24 09:00 History zolpidem 5 mg tablet 2.5 mg PO BEDTIME 06/24/24 06/24/24 Unknown History Physical Exam Vital Signs and Narrative: Vital Signs: Last Vital Signs Temp 98.2 F 06/24/24 15:30 Pulse 63 06/24/24 15:30 Resp 16 06/24/24 15:30 BP 123/62 06/24/24 15:30 Pulse Ox 93 06/24/24 15:30 O2 Del Method Nasal Cannula 06/24/24 15:30 O2 Flow Rate 1.5 06/24/24 15:30 BMI result Body Mass Index 34.0 General: AOx3, no acute distress Resp: CVS: S1, S2, RRR GI: +BS, NT, no distention Skin: Warm, dry Neuro: Cranial nerves II-XII grossly intact bilaterally. Motor grossly intact bilaterally Extremities: No edema Psych: Appropriate affect Results Labs 06/24/24 13:07 06/24/24 13:07 Labs: Laboratory Results - last 24 hr 06/24/24 06/24/24 06/24/24 13:07 13:08 13:20 MCV 85.5 MCH 28.4 MCHC 33.2 RDW 13.5 Plt Count 313 MPV 10.6 Immature Gran % (Auto) 0.5 H Neut % (Auto) 65.0 Lymph % (Auto) 19.4 L Tift % (Auto) 9.5 Eos % (Auto) 5.2 H Baso % (Auto) 0.4 Lymph # (Auto) 1.9 Tift # (Auto) 0.9 Eos # (Auto) 0.5 H Baso # (Auto) 0.0 Abs Immat Gran (auto) 0.05 H Absolute Neuts (auto) 6.3 Absolute Nucleated RBC 0.000 Nucleated RBC % (auto) 0.0 PT 13.6 H INR 1.1 VBG pH 7.43 VBG pCO2 52 VBG pO2 111 VBG HCO3 35 H VBG O2 Saturation 100.0 VBG Base Excess 9.0 Anion Gap 15 Estim Creat Clear Calc 90.3 Estimated GFR > 60 Random Glucose 172 H Calcium 9.3 D Total Bilirubin 0.5 AST 11 ALT 10 Alkaline Phosphatase 110 Troponin I High Sens < 2.7 D B-Natriuretic Peptide 40 Total Protein 6.6 Albumin 3.6 Influenza Type A (PCR) Influenza Type B (PCR) RSV RNA Qual (PCR) SARS-CoV-2 RNA (RT-PCR) 06/24/24 13:33 MCV MCH MCHC RDW Plt Count MPV Immature Gran % (Auto) Neut % (Auto) Lymph % (Auto) Tift % (Auto) Eos % (Auto) Baso % (Auto) Lymph # (Auto) Tift # (Auto) Eos # (Auto) Baso # (Auto) Abs Immat Gran (auto) Absolute Neuts (auto) Absolute Nucleated RBC Nucleated RBC % (auto) PT INR VBG pH VBG pCO2 VBG pO2 VBG HCO3 VBG O2 Saturation VBG Base Excess Anion Gap Estim Creat Clear Calc Estimated GFR Random Glucose Calcium Total Bilirubin AST ALT Alkaline Phosphatase Troponin I High Sens B-Natriuretic Peptide Total Protein Albumin Influenza Type A (PCR) NEGATIVE Influenza Type B (PCR) NEGATIVE RSV RNA Qual (PCR) NEGATIVE SARS-CoV-2 RNA (RT-PCR) NEGATIVE Imaging Radiologist's Impressions: Impressions Chest X-Ray 06/24/24 12:54 IMPRESSION: Stable compared to 06/19/2024. Electronically signed by: Joselyn Barrera MD 06/24/2024 03:27 PM EDT Assessment and Plan (1) Asthma with exacerbation: Qualifiers: Asthma persistence: persistent Asthma severity: moderate Qualified Code(s): J45.41 - Moderate persistent asthma with (acute) exacerbation Status: Acute Plan Pt is a 73-year-old male with a PMH significant for?asthma/COPD overlap syndrome not on home O2, HTN, insulin-dependent type 2 diabetes, peripheral neuropathy, GERD, and mood disorder who presents to the ED with?shortness of breath for the past 2-3 days. Pt will be admitted to the hospital for treatment and further evaluation of acute hypoxic respiratory failure in the setting of asthma/COPD overlap syndrome exacerbation. Acute hypoxic respiratory failure in the setting of asthma/COPD overlap syndrome exacerbation Patient desatting into the 80s on RA and 2 L NC after ambulation Patient does not meet sepsis criteria, CXR negative for pneumonia Will treat with DuoNebs, Solu-Medrol, loratadine, guaifenesin Titrate supplemental O2 with goal of 88-92%, wean as tolerated Will treat with azithromycin for pleiotropic effects, started 06/24/2024 Monitor respiratory status Patient currently not on maintenance steroid inhaler, consider discharging on Breo Insulin-dependent type 2 diabetes Sliding-scale insulin, Lantus Diabetic diet HTN Well-controlled on current therapies Continue metoprolol, chlorthalidone Peripheral neuropathy Continue gabapentin GERD Continue PPI Mood disorder Continue venlafaxine Full Code Attending:?Dr. Pinto DVT Prophylaxis: Lovenox Pt will require a hospitalization of at least two nights for treatment of acute hypoxic respiratory failure in setting of asthma/COPD overlap exacerbation. Patient will require administration of IV steroids, breathing treatments, supplemental oxygen, and close monitoring of respiratory status. Quality Stroke Does the patient have a stroke diagnosis?: No VTE Prior VTE?: No VTE Risk Level:: Medical - moderate - high VTE Device Contraindication: Treatment Not Indicated VTE Drug Contraindication: N/A - Med Ordered
--- NOTE | 2024-06-24 17:15 | PHA.MEDREC ---
Pharmacy Consult ? Medication Reconciliation Pharmacy has completed the medication reconciliation.
[2024-06-24] MEDS: Azithromycin 500 MG in 0.9 % Sodium Chloride 250 ML 125 MG IV (18:13)
[2024-06-24] MEDS: Acetaminophen 325 MG TABLET 650 MG PO (18:13)
[2024-06-24] MEDS: guaiFENesin DM 200/20/10 ML 10 ML SYRUP PO (18:13)
[2024-06-24] MEDS: Loratadine 10 MG TABLET PO (18:13)
[2024-06-24] MEDS: Enoxaparin Sodium 40 MG/0.4 ML SYRINGE SUBCUT (18:13)
[2024-06-24] MEDS: clonazePAM 0.5 MG TABLET PO (18:13)
--- NOTE | 2024-06-24 18:15 | PC.NURSE ---
pt request only tylenol for chronic leftsided buttocks pain hes had for months.
[2024-06-24] MEDS: Gabapentin 300 MG CAPSULE PO (22:28)
[2024-06-24] MEDS: Insulin Lispro 100 UNIT/ML 3 ML VIAL SUBCUT (22:29)
[2024-06-24] MEDS: Insulin Glargine,Hum.rec.anlog 100 UNIT/ML 10 ML VIAL 28 UNIT SUBCUT (22:29)
[2024-06-24] MEDS: Venlafaxine HCl ER 150 MG CAP.ER.24H PO (22:29)
[2024-06-24] MEDS: methylPREDNISolone Sod Succ 40 MG/ML VIAL IVPUSH (22:29)
[2024-06-24] MEDS: Zolpidem Tartrate 5 MG TABLET 2.5 MG PO (22:30)
[2024-06-24 22:31] LABS: Glucose, Whole Blood 266 mg/dL (60-115)
[2024-06-24 22:33] LABS: Glucose, Whole Blood 279 mg/dL (60-115)
[2024-06-25] VITALS (10 sets, daily range): BP systolic 127–164; BP diastolic 63–88; PULSE 64–83; RESP 13–20; TEMP 36.2–36.7; O2SAT 91–97
[2024-06-25] MEDS: 0.9 % Sodium Chloride Flush 3 ML SYRINGE IVFLUSH ×4 (03:08→19:43)
[2024-06-25] MEDS: Omeprazole 20 MG CAPSULE.DR PO (06:41)
[2024-06-25] MEDS: Insulin Lispro 100 UNIT/ML 3 ML VIAL SUBCUT ×4 (07:25→19:42)
[2024-06-25 07:36] LABS: Glucose, Whole Blood 207 mg/dL (60-115)
[2024-06-25] MEDS: Albuterol/Iprat 2.5/0.5MG 3 ML AMPUL.NEB INHALE ×4 (07:47→19:35)
[2024-06-25] MEDS: Venlafaxine HCl ER 75 MG CAP.ER.24H PO (09:03)
[2024-06-25] MEDS: Gabapentin 300 MG CAPSULE PO ×2 (09:04→22:34)
[2024-06-25] MEDS: Metoprolol Succinate ER 50 MG TAB.ER.24H PO (09:04)
[2024-06-25] MEDS: Loratadine 10 MG TABLET PO (09:05)
[2024-06-25] MEDS: methylPREDNISolone Sod Succ 40 MG/ML VIAL IVPUSH ×2 (09:10→22:34)
[2024-06-25] MEDS: Brimonidine Tartrate 0.2% Oph 5 ML BOTTLE 1 DROP EYE-LEFT ×2 (09:43→22:34)
[2024-06-25] MEDS: timoloL maleate 0.5 % Oph Sol 5 ML DRBTL 1 DROP EYE-LEFT ×2 (09:44→22:34)
--- NOTE | 2024-06-25 10:26 | PC.NURSE ---
Trial off O2 per MD, pt between 88-94% on RA, denies SOB
--- NOTE | 2024-06-25 11:54 | MHC.CM.PN ---
PT REPORTS HE LIVES WITH HIS AND IS INDEPENDENT WITH CARE HE HAS A CANE HE USES NEEDED AND NO SERVICES HE SAYS HE HAS A HCP NAMING HIS AND DAUGHTER HIS AGENTS, COPY REQUESTED PCP: MARIA TERESA DENIS IMM DELIVERED DCP: HOME NO SERVICES TO TRANSPORT
[2024-06-25 12:34] LABS: Glucose, Whole Blood 208 mg/dL (60-115)
[2024-06-25 12:58] LABS: Glucose, Whole Blood 209 mg/dL (60-115)
--- NOTE | 2024-06-25 15:58 | HO.PM.IMPN ---
Subjective Subjective Date of Service: 06/25/24 Interval History: Being followed for acute asthma/COPD overlap exacerbation. Feeling better this morning less shortness of breath, persistent dry cough, denies fever, no chills tolerating diet, oxygenation improving not on home O2, no acute events overnight. Complaining of chronic left back and leg pain. Review of Systems All other system reviewed and are negative. Physical Exam Vital Signs: Vital Signs: Last Vital Signs Temp 97.2 F 06/25/24 15:38 Pulse 68 06/25/24 15:38 Resp 16 06/25/24 15:38 BP 133/87 06/25/24 15:38 Pulse Ox 97 06/25/24 15:38 O2 Del Method Room Air 06/25/24 15:38 O2 Flow Rate 1 06/25/24 06:21 BMI result Body Mass Index 34.0 Const: Other: General awake alert x3, in no acute distress. Anicteric sclera Neck no JVD. CVS regular rate rhythm, Respiratory lungs bilateral expiratory wheeze Gastrointestinal abdomen soft, non tender, bowel sounds audible, no guarding , no rigidity. Extremities no edema. Neuro non focal Skin no rash Psych appropriate affect Objective Data Active Medications Acetaminophen (Acetaminophen 325 Mg Tablet) 650 mg PO Q6H PRN PRN Reason: Pain, Mild (Pain Scale 1-3), fever or headache Last Admin: 06/24/24 18:13 Dose: 650 mg Documented By: BILLIE Albuterol/Ipratropium (Albuterol/Iprat 2.5/0.5mg 3 Ml Ampul.Neb) 3 ml INHALE RQ4H WHILE AWAKE [facility], [facility]1983 Last Admin: 06/25/24 15:09 Dose: 3 ml Documented By: NICOLE Albuterol/Ipratropium (Albuterol/Iprat 2.5/0.5mg 3 Ml Ampul.Neb) 3 ml INHALE RQ4H WHILE AWAKE PRN PRN Reason: Shortness of Breath/Wheezing Brimonidine Tartrate (Brimonidine Tartrate 0.2% Oph 5 Ml Bottle) 1 drop EYE-LEFT BID [facility], [facility]–1983 Last Admin: 06/25/24 09:43 Dose: 1 drop Documented By: JAMES Clonazepam (Clonazepam 0.5 Mg Tablet) 0.5 mg PO DAILY@1700 [facility], [facility]–1983 Last Admin: 06/24/24 18:13 Dose: 0.5 mg Documented By: BILLIE Enoxaparin Sodium (Enoxaparin Sodium 40 Mg/0.4 Ml Syringe) 40 mg SUBCUT Q24H [facility], [facility]–1983 Last Admin: 06/24/24 18:13 Dose: 40 mg Documented By: BILLIE Gabapentin (Gabapentin 300 Mg Capsule) 300 mg PO BID [facility], [facility]–1983 Last Admin: 06/25/24 09:04 Dose: 300 mg Documented By: JAMES Glucose (Glucose Gel 15 Gm Gel..Gram.) 15 gm PO Q15M PRN; Protocol PRN Reason: per Hypoglycemia Standing Ord. Guaifenesin/Dextromethorphan (Guaifenesin Dm 200/20/10 Ml 10 Ml Syrup) 10 ml PO Q4H PRN PRN Reason: Cough Last Admin: 06/24/24 18:13 Dose: 10 ml Documented By: BILLIE Azithromycin 500 mg/ Sodium (Chloride) 250 mls @ 125 mls/hr IV Q24H [facility] Last Infusion: 06/24/24 20:48 Dose: Infused Documented By: JOLANTA Dextrose (D10) 250 mls @ 750 mls/hr IV Q15M PRN; Protocol PRN Reason: per Hypoglycemia Standing Ord. Insulin Glargine (Insulin Glargine,Hum.Rec.Anlog 100 Unit/Ml 10 Ml Vial) 28 unit SUBCUT BEDTIME [facility], [facility] Last Admin: 06/24/24 22:29 Dose: 28 unit Documented By: JOLANTA Insulin Human Lispro (Insulin Lispro 100 Unit/Ml 3 Ml Vial) 0 unit SUBCUT QIDACHS [facility], [facility]; Protocol Last Admin: 06/25/24 13:17 Dose: 4 unit Documented By: JUANA Latanoprost (Latanoprost 0.005 % Ophth Franny 2.5 Ml Drops) 1 drop EYE-LEFT BEDTIME [facility], [facility] Last Admin: 06/24/24 22:36 Dose: Not Given Documented By: JOLANTA Non-Admin Reason: Patient Refused Loratadine (Loratadine 10 Mg Tablet) 10 mg PO DAILY [facility] Last Admin: 06/25/24 09:05 Dose: 10 mg Documented By: JAMES Magnesium Hydroxide (Milk Of Magnesia 30 Ml Oral.Susp) 30 ml PO DAILY PRN PRN Reason: Constipation Melatonin (Melatonin 3 Mg Tablet) 6 mg PO BEDTIME PRN PRN Reason: Insomnia Methylprednisolone Sodium Succinate (Methylprednisolone Sod Succ 40 Mg/Ml Vial) 40 mg IVPUSH Q12H [facility] Last Admin: 06/25/24 09:10 Dose: 40 mg Documented By: JAMES Metoprolol Succinate (Metoprolol Succinate Er 50 Mg Tab.Er.24h) 50 mg PO DAILY [facility], [facility]; Protocol Last Admin: 06/25/24 09:04 Dose: 50 mg Documented By: JAMES Omeprazole (Omeprazole 20 Mg Capsule.Dr) 20 mg PO DAILY@0630 [facility]1983 Last Admin: 06/25/24 06:41 Dose: 20 mg Documented By: JOLANTA Ondansetron HCl (Ondansetron Hcl 4 Mg/2 Ml Vial) 4 mg IVPUSH Q8H PRN PRN Reason: Nausea and Vomiting Sodium Chloride (0.9 % Sodium Chloride Flush 3 Ml Syringe) 3 ml IVFLUSH QSHIFT [facility] Last Admin: 06/25/24 07:25 Dose: 3 ml Documented By: JAMES Timolol Maleate (Timolol Maleate 0.5 % Oph Franny 5 Ml Drbtl) 1 drop EYE-LEFT BID [facility], [facility]1983 Last Admin: 06/25/24 09:44 Dose: 1 drop Documented By: JAMES Venlafaxine HCl (Venlafaxine Hcl Er 75 Mg Cap.Er.24h) 75 mg PO DAILY [facility] Last Admin: 06/25/24 09:03 Dose: 75 mg Documented By: JAMES Venlafaxine HCl (Venlafaxine Hcl Er 150 Mg Cap.Er.24h) 150 mg PO BEDTIME [facility] Last Admin: 06/24/24 22:29 Dose: 150 mg Documented By: JOLANTA Zolpidem Tartrate (Zolpidem Tartrate 5 Mg Tablet) 2.5 mg PO BEDTIME [facility] Last Admin: 06/24/24 22:30 Dose: 2.5 mg Documented By: JOLANTA Labs 06/24/24 13:07 06/24/24 13:07 Labs: Laboratory Results - last 24 hr 06/24/24 06/24/24 06/24/24 13:05 22:16 22:26 POC Glucose 279 H 266 H Influenza Type A (PCR) Cancelled Influenza Type B (PCR) Cancelled RSV RNA Qual (PCR) Cancelled SARS-CoV-2 RNA (RT-PCR) Cancelled 06/25/24 06/25/24 06/25/24 07:21 12:29 12:51 POC Glucose 207 H 208 H 209 H Influenza Type A (PCR) Influenza Type B (PCR) RSV RNA Qual (PCR) SARS-CoV-2 RNA (RT-PCR) Assessment and Plan (1) Asthma with exacerbation: Status: Acute Plan 73-year-old male with a PMH significant for?asthma/COPD overlap syndrome not on home O2, HTN, insulin-dependent type 2 diabetes, peripheral neuropathy, GERD, and mood disorder who presents to the ED with?shortness of breath for the past 2-3 days. Pt will be admitted to the hospital for treatment and further evaluation of acute hypoxic respiratory failure in the setting of asthma/COPD overlap syndrome exacerbation. Acute hypoxic respiratory failure in the setting of asthma/COPD overlap syndrome exacerbation Responding to current treatment with DuoNebs, Solu-Medrol, loratadine, guaifenesin Titrate supplemental O2 with goal of 88-92%, wean as tolerated on azithromycin for pleiotropic effects, started 06/24/2024 Monitor respiratory status Patient currently not on maintenance steroid inhaler, started on Breo Insulin-dependent type 2 diabetes Hyperglycemia likely due to steroids, adjust Sliding-scale insulin, continue Lantus and Diabetic diet HTN Continue metoprolol, chlorthalidone,follow bp Peripheral neuropathy/chronic pain Continue gabapentin GERD Continue PPI Mood disorder Continue venlafaxine Full Code DVT Prophylaxis: Lovenox Pt will require continued inpatient hospitalization for treatment of acute hypoxic respiratory failure in setting of asthma/COPD overlap exacerbation. Patient will require administration of IV steroids, breathing treatments, supplemental oxygen, and close monitoring of respiratory status. Quality Stroke Does the patient have a stroke diagnosis?: No VTE Prior VTE?: No VTE Risk Level:: Medical - moderate - high VTE Device Contraindication: Treatment Not Indicated VTE Drug Contraindication: N/A - Med Ordered
[2024-06-25 16:25] LABS: Glucose, Whole Blood 178 mg/dL (60-115)
[2024-06-25] MEDS: Azithromycin 500 MG in 0.9 % Sodium Chloride 250 ML 125 MG IV (17:04)
[2024-06-25] MEDS: clonazePAM 0.5 MG TABLET PO (17:04)
[2024-06-25] MEDS: Enoxaparin Sodium 40 MG/0.4 ML SYRINGE SUBCUT (17:04)
[2024-06-25 19:25] LABS: Glucose, Whole Blood 231 mg/dL (60-115)
[2024-06-25] MEDS: Insulin Glargine,Hum.rec.anlog 100 UNIT/ML 10 ML VIAL 35 UNIT SUBCUT (19:42)
[2024-06-25] MEDS: Venlafaxine HCl ER 150 MG CAP.ER.24H PO (22:34)
[2024-06-25] MEDS: Zolpidem Tartrate 5 MG TABLET 2.5 MG PO (22:34)
[2024-06-25] MEDS: Latanoprost 0.005 % Ophth Sol 2.5 ML DROPS 1 DROP EYE-LEFT (22:34)
[2024-06-26 03:44] VITALS: BP 138/62; PULSE 79; RESP 20; TEMP 36.3; O2SAT 94
[2024-06-26] MEDS: Omeprazole 20 MG CAPSULE.DR PO (06:08)
[2024-06-26 06:54] VITALS: BP 146/70; PULSE 54; RESP 17; TEMP 36.6; O2SAT 94
[2024-06-26 07:04] LABS: Glucose, Whole Blood 114 mg/dL (60-115)
[2024-06-26] MEDS: Albuterol/Iprat 2.5/0.5MG 3 ML AMPUL.NEB INHALE ×2 (07:51→11:18)
[2024-06-26 07:52] VITALS: PULSE 87; RESP 16; O2SAT 95
[2024-06-26] MEDS: methylPREDNISolone Sod Succ 40 MG/ML VIAL IVPUSH (08:34)
[2024-06-26] MEDS: Brimonidine Tartrate 0.2% Oph 5 ML BOTTLE 1 DROP EYE-LEFT (08:34)
[2024-06-26] MEDS: Gabapentin 300 MG CAPSULE PO (08:34)
[2024-06-26] MEDS: timoloL maleate 0.5 % Oph Sol 5 ML DRBTL 1 DROP EYE-LEFT (08:34)
[2024-06-26] MEDS: Metoprolol Succinate ER 50 MG TAB.ER.24H PO (08:34)
[2024-06-26] MEDS: Loratadine 10 MG TABLET PO (08:34)
[2024-06-26] MEDS: 0.9 % Sodium Chloride Flush 3 ML SYRINGE IVFLUSH (08:35)
[2024-06-26] MEDS: Venlafaxine HCl ER 75 MG CAP.ER.24H PO (08:35)
[2024-06-26 11:03] LABS: Glucose, Whole Blood 205 mg/dL (60-115)
--- NOTE | 2024-06-26 11:07 | MHC.CM.PN ---
pt dcd home self care
[2024-06-26 11:24] VITALS: PULSE 63; RESP 16; O2SAT 94
[2024-06-26] MEDS: Insulin Lispro 100 UNIT/ML 3 ML VIAL SUBCUT (12:05)
--- NOTE | 2024-06-26 12:48 | P.DS_ITS ---
DS: Providers Provider Date of Service: 06/26/24 Date of admission: 06/24/24 17:06 Primary care physician: Hector Cherry MD DS: Diagnosis Discharge Diagnosis (1) Asthma with exacerbation: Status: Acute DS: Summary Hospital Course Hospital Course: History of presenting illness: Date of Service: 06/24/24 Attending physician on admission: Diogo Pinto Chief Complaint: SOB Pt is a 73-year-old male with a PMH significant for?asthma/COPD overlap syndrome not on home O2, HTN, insulin-dependent type 2 diabetes, peripheral neuropathy, GERD, and mood disorder who presents to the ED with?shortness of breath for the past 2-3 days. Patient was recently discharged from the hospital 4 days prior on 06/20 after being admitted for similar symptoms and treated for asthma/COPD overlap exacerbation. Was discharged on a prednisone taper, however patient st ates that this was not available at the pharmacy when he went to pick it up. Has thus not been on steroids since discharge. Initially felt okay, but shortness of breath and difficulty breathing slowly increased and were not alleviated by home inhalers. Also complains wheezing occasional dry cough. No fever or chills. Denies chest pain/pressure, palpitations. No nausea, vomiting, abdominal pain. Patient was treated in the emergency room and underwent ambulation trial where he desatted into the mid 80s. Upon return to his room he was placed on 2 L NC where he continued to be hypoxic as low as 88%, which was improved on 3L. In the ED pt was found to be hypoxic as low as 88% on 2 L NC after ambulation. Labs were grossly unremarkable and baseline for patient. No leukocytosis. Stable H&H. No significant electrolyte abnormalities. Renal and hepatic function WNL. Troponins negative. CXR negative for acute findings, stable compared to previous [id number]. EKG demonstrated normal sinus rhythm without evidence of significant ST elevations or depressions. Pt was treated with DuoNebs, Mag sulfate, and Solu-Medrol. Pt will be admitted to the hospital for treatment and further evaluation of acute hypoxic respiratory failure in the setting of asthma/COPD overlap syndrome exacerbation. Hospital course: 73-year-old male with a PMH significant for?asthma/COPD overlap syndrome not on home O2, HTN, insulin-dependent type 2 diabetes, peripheral neuropathy, GERD, and mood disorder who presents to the ED with?shortness of breath for the past 2-3 days and admitted to [facility] with a diagnosis of Acute hypoxic respiratory failure in the setting of asthma/COPD overlap syndrome exacerbation, treated with scheduled and as needed DuoNebs, iv Solu-Medrol, cough medication,and a zithromycin for pleiotropic effects, patient responded well to above treatment, hypoxia resolved currently oxygenating 93 94% on room air, therefore will discharge on tapering dose of prednisone, few more days of azithromycin, recommend to continue DuoNeb updraft scheduled 4 times a day for few more days. Insulin-dependent type 2 diabetes, noted to have hyperglycemia likely due to steroids recommend to follow diabetic diet and home dose of Lantus HTN Continue metoprolol and chlorthalidone. Peripheral neuropathy/chronic pain Continue gabapentin Time Attestation Discharge Coordination Time (in mins): 36 Quality: Safe Use of Opioids Does Pt have an Active Cancer Diagnosis on the Problem List?: No Quality: Stroke Does the patient have a stroke diagnosis?: No Physical Exam Vital Signs: Vital Signs: Last Vital Signs Temp 97.9 F 06/26/24 06:54 Pulse 63 06/26/24 11:24 Resp 16 06/26/24 11:24 BP 146/70 H 06/26/24 06:54 Pulse Ox 94 06/26/24 06:54 O2 Del Method CPAP 06/26/24 06:54 O2 Flow Rate 1 06/25/24 06:21 BMI result Body Mass Index 34.0 Const: Other: General awake alert x3, in no acute distress. Anicteric sclera Neck no JVD. CVS regular rate rhythm, Respiratory lungs few expiratory wheeze. Gastrointestinal abdomen soft, non tender, bowel sounds audible, no guarding , no rigidity. Extremities no edema. Neuro non focal Skin no rash Psych appropriate affect DS: Data Data Completed and Pending Labs on day of discharge: Laboratory Results - last 24 hr 06/25/24 06/25/24 06/25/24 12:51 16:10 19:20 POC Glucose 209 H 178 H 231 H 06/26/24 06/26/24 07:01 10:57 POC Glucose 114 205 H Discharge Plan Discharge Anticipated Discharge Date/Time: 06/26/24 10:29 Patient Disposition: Home, Self-Care Discharge Diagnosis: Acute hypoxic respiratory failure COPD/asthma overlap syndrome Referrals: Hector Cherry MD [Primary Care Provider] - 1 Week Discharge Medications: New azithromycin 250 mg tablet 250 mg PO DAILY Qty: 3 0RF prednisone 10 mg tablet 10 mg PO DIRECTED Qty: 20 0RF Rx Instructions: see taper instructions; prednisone, 30 mg daily x3 days, 20 mg daily x3 days, 10 mg daily x3 days Continued (DME) insulin syringe,safetyneedle 0.3 mL 29 x 1/2 syringe See Rx Instructions .Route Qty: 100 0RF Rx Instructions: As directed (DME) Comfort EZ Pen [place] 32 gauge x 5/16 needle See Rx Instructions .Route Qty: 100 0RF Rx Instructions: Use 3 times daily with insulin metoprolol succinate 50 mg tablet extended release 24 hr 50 mg PO DAILY Qty: 90 1RF venlafaxine 75 mg capsule,extended release 24hr 75 mg PO DAILY chlorthalidone 25 mg tablet 25 mg PO DAILY pseudoephedrine HCl 30 mg tablet 30 mg PO Q4H PRN (Reason: nasal congestion) Rx Instructions: DNExceed 3 doses/24h albuterol sulfate 90 mcg/actuation HFA aerosol inhaler 2 puff inhalation Q4H PRN (Reason: for wheezing) insulin glargine [Lantus Solostar U-100 Insulin] 100 unit/mL (3 mL) insulin pen 40 unit subcut BEDTIME zolpidem 5 mg tablet 2.5 mg PO BEDTIME timolol maleate 0.5 % drops 1 drp ophthalmic-Left BID pantoprazole 20 mg tablet,delayed release (DR/EC) 20 mg PO DAILY@0630 insulin lispro [Humalog KwikPen Insulin] 100 unit/mL insulin pen 20 unit subcut TIDAC albuterol sulfate 2.5 mg /3 mL (0.083 %) solution for nebulization 2.5 mg inhalation Q4H PRN (Reason: shortness of breath or wheezing) Qty: 90 0RF gabapentin 300 mg capsule 300 mg PO BID Qty: 180 1RF latanoprost 0.005 % drops 1 drp ophthalmic-Left BEDTIME brimonidine 0.2 % drops 1 drp ophthalmic-Left BID venlafaxine 150 mg capsule,extended release 24hr 150 mg PO BEDTIME Qty: 30 0RF clonazepam 0.5 mg tablet 0.5 mg PO DAILY@1700 Qty: 30 0RF Rx Instructions: administer 30 minutes before bedtime Discharge Orders: Discharge Order (Routine); Ordered 06/26/24 Ordered By: Diogo Pinto Diet: Diabetic diet Activity on Discharge: As tolerated Stand Alone Forms: Patient Portal Discharge page Print Language: Martiniquais Care Plan Goals: Take DuoNeb nebulizer 4 times a day Finished course of prednisone Take azithromycin as recommended Health Concerns: Continue all home medications as before. Plan of Treatment: Outpatient follow-up with primary care physician call for appointment. Assessment: As above Discharge Date/Time: 06/26/24 12:31
== END 2024-06-26 12:31 | disposition home or self-care (01) | DRG 190 ==
LOC: HO.ED 15:46 → HO.EDOVER 17:32 → HO.S3 06-25 11:53
PROVIDERS: Internal Medicine; Registered Nurse Emergency; Admitting Provider Student in an Organized Health Care Education/Training Program; Emergency Provider Emergency Medicine; PCP Internal Medicine; Visit Provider Hospitalist
DX: J44.1 Chronic obstructive pulmonary disease with (acute) exacerbation (principal); J96.01 Acute respiratory failure with hypoxia; J45.41 Moderate persistent asthma with (acute) exacerbation; G47.33 Obstructive sleep apnea (adult) (pediatric); E11.42 Type 2 diabetes mellitus with diabetic polyneuropathy; I10 Essential (primary) hypertension; K21.9 Gastro-esophageal reflux disease without esophagitis; F39 Unspecified mood [affective] disorder; G89.29 Other chronic pain; Z20.822 Contact with and (suspected) exposure to COVID-19; Z87.891 Personal history of nicotine dependence; Z79.4 Long term (current) use of insulin; Z79.899 Other long term (current) drug therapy
CPT/HCPCS: 0241U; 71046; 80053; 82803; 82947; 83880; 84484; 85025; 85610; 93005; 94640; 99221; 99285; J0456; J1650; J2919; J3475

== ENCOUNTER → 2024-06-24 17:06 | Outpatient (BNV) | payer MEDICARE, SELFPAY | PROVIDERS: Admitting Provider Student in an Organized Health Care Education/Training Program; Emergency Provider Emergency Medicine; Visit Provider Student in an Organized Health Care Education/Training Program | DX: J96.21 Acute and chronic respiratory failure with hypoxia (principal); J45.41 Moderate persistent asthma with (acute) exacerbation | CPT/HCPCS: 99223; 99232; 99239 ==

== ENCOUNTER 2024-07-06 16:27 | Inpatient (IN) | payer MEDICARE, SELFPAY ==
--- NOTE | ~2024-07-06 | XR_ITS ---
EXAMINATION: XR CHEST CLINICAL INFORMATION: Shortness of breath COMPARISON: Chest radiograph dated June 24, 2024. TECHNIQUE: 2 views of the chest were obtained. FINDINGS: The heart is normal in size. There is calcific atherosclerotic disease of the aorta. The lungs are clear. No pleural effusion. No pneumothorax. No acute osseous abnormality. XR/XR chest 2V IMPRESSION: No acute cardiopulmonary disease. Stable appearance of the heart and lungs. Electronically signed by: Davon Garcia DO 07/06/2024 06:46 PM EDT
[2024-07-06 16:30] VITALS: BP 135/57; BP 153/68; PULSE 87; PULSE 88; RESP 20; TEMP 36.9; O2SAT 95; O2SAT 98; BMI 32.7
--- NOTE | 2024-07-06 16:30 | ECG_ITS ---
Test Reason : SOB Blood Pressure : / mmHG Vent. Rate : 085 BPM Atrial Rate : 085 BPM P-R Int : 160 ms QRS Dur : 106 ms QT Int : 400 ms P-R-T Axes : 037 -12 022 degrees QTc Int : 476 ms Normal sinus rhythm Normal ECG When compared with ECG of 24-JUN-2024 12:42, Criteria for Septal infarct are no longer Present Referred By: Tere Ospina Electronically Signed By:NADJA MANRIQUE
--- NOTE | 2024-07-06 16:31 | ED.SOB ---
HPI - SOB/Dyspnea General Chief Complaint: Dyspnea Stated Complaint: SOB Time Seen by Provider: 07/06/24 16:29 Source: patient and EMS Mode of arrival: EMS Limitations: no limitations History of Present Illness HPI Narrative: Patient is a 73-year-old male presents to the emergency department via EMS for evaluation of shortness of breath, pre-hospital he received an updraft as well as Solu-Medrol 125 mg IV by EMS. He states that he has never felt quite well since his recent hospital discharge. He has been taking medications as prescribed. He continues to have productive cough with green phlegm. Reports that today he awoke with a tightness in his chest, he attempted to use his nebulizer admits that he used to doses of the nebulizer solution at once and then he felt very anxious, and developed palpitations, with no relief from his shortness of breath. Denies any fevers or chills. Related Data Home Medications ?Medication ?Instructions ?Recorded ?Confirmed latanoprost 0.005 % eye drops 1 drp ophthalmic-Left BEDTIME 11/17/21 06/24/24 brimonidine 0.2 % eye drops 1 drp ophthalmic-Left BID 05/18/23 06/24/24 albuterol sulfate 90 mcg/actuation 2 puff inhalation Q4H PRN for 06/19/24 06/24/24 aerosol inhaler wheezing insulin glargine 100 unit/mL (3 40 unit subcut BEDTIME 06/19/24 06/24/24 mL) subcutaneous pen (Lantus Solostar U-100 Insulin) pseudoephedrine HCl 30 mg tablet 30 mg PO Q4H PRN nasal congestion 06/19/24 06/24/24 venlafaxine 75 mg capsule,extended 75 mg PO DAILY 06/19/24 06/24/24 release 24 hr insulin lispro 100 unit/mL 20 unit subcut TIDAC 06/24/24 06/24/24 subcutaneous pen (Humalog KwikPen (U-100) Insulin) timolol maleate 0.5 % eye drops 1 drp ophthalmic-Left BID 06/24/24 06/24/24 zolpidem 5 mg tablet 2.5 mg PO BEDTIME 06/24/24 06/24/24 Previous Rx's ?Medication ?Instructions ?Recorded insulin syringe,safety needle 0.3 #100 ea 09/28/21 mL 29 gauge x 1/2 pen needle, diabetic 32 gauge x #100 ea 04/09/22 5/16 (Comfort EZ Pen [place]) gabapentin 300 mg capsule 300 mg PO BID #180 caps 04/10/24 albuterol sulfate 2.5 mg/3 mL 2.5 mg (3 mL) inhalation Q4H PRN 06/26/24 (0.083 %) solution for nebulization shortness of breath or wheezing #90 mL azithromycin 250 mg tablet 250 mg PO DAILY #3 tabs 06/26/24 prednisone 10 mg tablet 10 mg PO DIRECTED #20 tabs 06/26/24 chlorthalidone 25 mg tablet 25 mg PO DAILY #90 tabs 06/27/24 metoprolol succinate 50 mg 50 mg PO DAILY #90 tabs 06/27/24 tablet,extended release 24 hr pantoprazole 20 mg tablet,delayed 20 mg PO DAILY@0630 #90 tabs 06/27/24 release clonazepam 0.5 mg tablet 0.5 mg PO DAILY@1700 #30 tabs 07/03/24 pseudoephedrine HCl 30 mg tablet 30 mg PO Q4-6H PRN nasal 07/04/24 congestion 90 days #90 tabs venlafaxine 150 mg 150 mg PO BEDTIME #30 caps 07/04/24 capsule,extended release 24 hr Allergies Allergy/AdvReac Type Severity Reaction Status Date / Time hydrocortisone Allergy Severe SWELLING Verified 07/06/24 16:33 [HYDROCORTISONE] NSAIDS (Non-Steroidal Allergy Severe BLEEDING Verified 06/24/24 12:54 Anti-Inflamma [NSAIDS (NON-STEROIDAL ANTI-INFLAMMA] aspirin Allergy Unknown bleeding Verified 06/24/24 12:54 doxycycline AdvReac Severe in-effectiv Verified 06/24/24 12:54 e Review of Systems Review of Systems: Yes all other systems are reviewed and are negative PMFSH Past Medical History Attestation statement: The following information was validated with the patient. Source: old records reviewed Medical History Class 2 severe obesity with body mass index (BMI) of 35 to 39.9 with serious comorbidity Bilateral primary osteoarthritis of knee Osteoarthritis of right knee Diabetes mellitus type 2, uncontrolled COPD exacerbation Arthritis of both knees Chronic pain syndrome Allergic rhinitis VIDA on CPAP COPD (chronic obstructive pulmonary disease) Lumbar radiculopathy Allergic rhinitis Asthma Benign prostatic hyperplasia Back pain Sleep apnea HTN (hypertension) Lumbar spondylosis Tendon tear Depression Arthritis Asthma Crohn disease Surgical History H/O colonoscopy Family History Family History Father No problems noted. Mother No problems noted. Social History Social History Household Members: Spouse and Children Housing: House Alcohol intake: never Comment: pain 3-4 left knee and buttock Patient Tobacco Use Status: Former Tobacco user Smoked in Last 30 Days: No e-Cigarette/Vaping Use: Never Used Second Hand Smoke Exposure: No Use of substances other than those prescribed or required for medical reasons: No Advance Directives: Yes Advance Directives Information Provided: No Advance Directives on File: No Advance Directives Date on File: 09/16/23 service: No Current occupational status: retired Cognitive needs: Yes (cane) Hearing needs: No Vision needs: Yes (Glasses) Physical Exam Vital Signs: Vital Signs: Last Vital Signs Temp 98.5 F 07/06/24 22:01 Pulse 84 07/06/24 22:01 Resp 17 07/06/24 22:01 BP 131/61 07/06/24 22:01 Pulse Ox 93 07/06/24 22:01 O2 Del Method Room Air 07/06/24 22:01 O2 Flow Rate 2 07/06/24 18:00 Oxygen Flow Rate 2 07/06/24 16:30 BMI result Body Mass Index 32.7 Appearance: Alert.?Oriented to person, place and time. No acute distress.?Normal affect. Eyes: Pupils equal, round and reactive to light.? ENT: Pharynx normal.?? Neck: Normal inspection.? Neck supple.?? CVS: Heart sounds normal. Normal heart rate and rhythm.? Pulses normal.?? Respiratory: No respiratory distress.? Lung sounds with expiratory wheezing bilaterally, rales at the bilateral bases Abdomen: Soft and non-tender. Normoactive bowel sounds. No pulsatile mass.?? Skin: Skin warm and dry.? Normal skin color.? Extremities: No lower extremity edema.? No calf ttp? Neuro: Moves all extremities spontaneously. Sensation intact bilaterally. CN II-XII intact. No focal neuro deficits. Ambulates with normal steady gait. Course Reevaluation(s) Reevaluation #1: Reports notable symptomatic improvement after receiving updraft in the emergency department in addition to pre-hospital Solu-Medrol. Ambulatory O2 trial with saturation remaining above 90%, no tachycardia, no complaints. Awaiting repeat chemistries after potassium replacement. Reevaluation #2: Patient signed out to Dr. Carpetner pending repeat potassium Medications Administered Generic Name Dose Route Start Last Admin Trade Name Freq PRN Reason Stop Dose Admin Potassium Chloride 10 meq in 100 mls @ 100 mls/hr 07/06/24 22:30 07/06/24 22:27 Potassium Chloride/H20 IV 07/07/24 00:29 100 mls/hr Q1H [place] Administration Magnesium Sulfate 2 gm in 50 mls @ 25 mls/hr 07/06/24 22:24 07/06/24 22:54 Magnesium Sulfate/H2o IV 07/07/24 00:23 25 mls/hr ONCE ONE Administration Discontinued Medications Generic Name Dose Route Start Last Admin Trade Name Freq PRN Reason Stop Dose Admin Albuterol Sulfate 5 mg/ 0 mg 07/06/24 16:43 07/06/24 16:52 Albuterol/Ipratropium 3 ml INHALE 07/06/24 16:44 2.5 each ONCE ONE Administration Potassium Chloride 10 meq in 100 mls @ 100 mls/hr 07/06/24 17:45 07/06/24 20:06 Potassium Chloride/H20 IV 07/06/24 19:44 Infused Q1H [place] Infusion Potassium Bicarbonate 50 meq 07/06/24 22:16 07/06/24 22:29 Potassium Bicarbonate/Cit Ac 25 Meq Tablet.Eff PO 07/06/24 22:17 50 meq ONCE ONE Administration Potassium Chloride 40 meq 07/06/24 17:35 07/06/24 17:54 Potassium Chloride Er 20 Meq Tab.Er.Prt PO 07/06/24 17:36 40 meq ONCE ONE Administration Medical Decision Making Medical Decision Making MDM Narrative: Patient is a 73-year-old male with past medical history of asthma/COPD, anxiety, obesity, DM, VIDA on CPAP, Crohn's disease presenting for evaluation shortness of breath. Of note he had a recent hospitalization 06/24/2024-06/26/2024 for asthma/COPD overlap exacerbation, discharged home with prednisone taper over 9 days (by his account he finished this a few days ago) as well as azithromycin which he has completed. Will obtain CBC to evaluate for leukocytosis/ anemia, CMP and lipase to evaluate for abnormal electrolytes /abnormal renal function/ abnormal hepatic/biliary function, EKG and troponin to evaluate for ischemia/ACS. Chest x-ray to evaluate for consolidation/ infiltrate/ mass/ pulmonary congestion and viral panel. Patient stayed hypoxic 89-90% at room air with history of COPD does not have any oxygen at home persistent hypokalemia will admit patient for further management will give more IV potassium Differential Diagnosis Differential Diagnoses: The differential diagnosis associated with the presentation includes (See narrative above) Admission/Observation Consideration of admission/observation: Escalation of care including admission/observation considered Consult Healthcare Provider Management of the patient was discussed with: Hospitalist Lab Data MDM Lab Attestation statement: I reviewed the patient's lab results. CBC is without leukocytosis, mild normocytic anemia, no thrombocytopenia. Hypokalemia 2.6, replenishing with 20 mEq use potassium chloride IV, 40 mEq orally. No YOVANY. LFTs within normal range. High sensitive troponin 3.0, Venous gas without acidosis, CO2 47 bicarb of 33. 07/06/24 17:01 07/06/24 20:31 Labs: Lab Results 07/06/24 07/06/24 07/06/24 Range/Units 17:01 17:07 20:31 WBC 7.8 (4.8-10.8) X10*3/uL RBC 4.61 (4.60-5.80) X10*6/uL Hgb 13.4 L (14.0-18.0) g/dl Hct 39.4 L (42.0-52.0) % MCV 85.5 (80.0-98.0) fL MCH 29.1 (27.0-33.0) pg MCHC 34.0 (31.0-36.0) g/dl RDW 14.5 (11.0-16.0) % Plt Count 206 D (160-400) X10*3/uL MPV 11.2 (9.4-12.4) fL Immature Gran % (Auto) 1.0 H (0.0-0.4) % Neut % (Auto) 69.2 (45-73) % Lymph % (Auto) 17.8 L (20-40) % [place] % (Auto) 7.7 (2-11) % Eos % (Auto) 3.9 (0-4) % Baso % (Auto) 0.4 (0-2) % Lymph # (Auto) 1.4 (1.2-4.9) X10*3/uL [place] # (Auto) 0.6 (0.1-1.2) X10*3/uL Eos # (Auto) 0.3 (0.0-0.4) X10*3/uL Baso # (Auto) 0.0 (0.0-0.2) X10*3/uL Abs Immat Gran (auto) 0.08 H (0.00-0.03) X10*3/uL Absolute Neuts (auto) 5.4 (2.0-8.3) x10*3/uL Absolute Nucleated RBC 0.000 (0.0-0.012) X10*3/uL Nucleated RBC % (auto) 0.0 (0.0-0.2) /100WBC PT 14.0 H (11.1-13.3) SEC INR 1.2 H (0.9-1.1) VBG pH 7.45 H (7.32-7.43) VBG pCO2 47 mmHg VBG pO2 53 mmHg VBG HCO3 33 H (22-26) mmol/L VBG O2 Saturation 86.0 % VBG Base Excess 8.3 mmol/L Sodium 141 139 (135-145) mmol/L Potassium 2.6 L* D 2.8 L* (3.3-5.1) mmol/L Chloride 100 102 (96-108) mmol/L Carbon Dioxide 31 H 25 (22-29) mmol/L Anion Gap 13 15 (12-20) BUN 19 H 17 H (9-16) mg/dL Creatinine 0.92 0.89 (0.5-1.4) mg/dL Estim Creat Clear Calc 80.9 83.6 Estimated GFR > 60 > 60 Random Glucose 194 H 299 H (60-115) mg/dL Calcium 9.1 9.1 (8.4-10.2) mg/dL Magnesium 1.6 (1.6-2.6) mg/dL Total Bilirubin 0.9 (0.0-1.0) mg/dL AST 18 (5-37) U/L ALT 22 (0-40) U/L Alkaline Phosphatase 95 (39-117) U/L Troponin I High Sens 3.0 (<3.5-35.0) ng/L B-Natriuretic Peptide 32 (<100) pg/mL Total Protein 6.2 L (6.5-8.0) g/dL Albumin 3.3 L (3.5-5.0) g/dL Influenza Type A (PCR) NEGATIVE (Negative) Influenza Type B (PCR) NEGATIVE (Negative) RSV RNA Qual (PCR) NEGATIVE (Negative) SARS-CoV-2 RNA (RT-PCR) NEGATIVE (Negative) Independent Interpretation I performed an independent interpretation of an: EKG and Plain X-Ray (No consolidation or infiltrate) Interpretation: Rate: 85 Rhythm:? Normal sinus rhythm Normal P waves.? Normal RUTH.?? Normal QRS complex.?? ST T wave :??No ST elevation, no ST depression qTC: 476 The study has been interpreted contemporaneously by me. Radiology Impression Discussion of test interpretation with radiology: I have reviewed the radiologist's reading. Radiologist Impression: XR/XR chest 2V IMPRESSION: No acute cardiopulmonary disease. Stable appearance of the heart and lungs. Independent Historian Clinical information obtained from an independent historian. History obtained from or confirmed by: EMS External Record Review External record reviewed: Outpatient record Discharge Plan Discharge Clinical Impression: COPD exacerbation, Acute hypokalemia Patient Disposition: Still a Patient
[2024-07-06] MEDS: Albuterol Sulfate 5 MG, Albuterol/Iprat 2.5/0.5MG 3 ML 3 ML INHALE (16:52)
[2024-07-06 16:53] VITALS: PULSE 86; RESP 16; O2SAT 95
[2024-07-06 17:05] LABS: MANUAL DIFF FLAG NO
[2024-07-06 17:09] LABS: Basophils Percent Auto 0.4 % (0-2); Eosinophils Absolute Auto 0.3 X10*3/uL (0.0-0.4); Eosinophils Percent Auto 3.9 % (0-4); Hematocrit 39.4 % (42.0-52.0); Hemoglobin 13.4 g/dl (14.0-18.0); Imm Gran Abs Auto 0.08 X10*3/uL (0.00-0.03); Lymphocytes Absolute Auto 1.4 X10*3/uL (1.2-4.9); Lymphocytes Percent Auto 17.8 % (20-40); Mean Corpuscular Hemoglobin 29.1 pg (27.0-33.0); Mean Corpuscular Volume 85.5 fL (80.0-98.0); Mean Platelet Volume 11.2 fL (9.4-12.4); Monocytes Absolute Auto 0.6 X10*3/uL (0.1-1.2); Monocytes Percent Auto 7.7 % (2-11); Neutrophils Absolute Auto 5.4 x10*3/uL (2.0-8.3); Neutrophils Percent Auto 69.2 % (45-73); Platelet Count 206 X10*3/uL (160-400); Red Blood Count 4.61 X10*6/uL (4.60-5.80); Red Cell Distribution Width 14.5 % (11.0-16.0); White Blood Count 7.8 X10*3/uL (4.8-10.8)
[2024-07-06 17:09] LABS: Venous Blood Gas Refer to POC result
[2024-07-06 17:10] LABS: VBG Base Excess 8.3 mmol/L; VBG HCO3 33 mmol/L (22-26); VBG pCO2 47 mmHg; VBG pH 7.45 (7.32-7.43); VBG pO2 53 mmHg
[2024-07-06 17:13] LABS: INTERNATIONAL NORM RATIO 1.2 (0.9-1.1)
[2024-07-06 17:33] LABS: Alanine Aminotransferase 22 U/L (0-40); Albumin Level 3.3 g/dL (3.5-5.0); Alkaline Phosphatase 95 U/L (39-117); Anion Gap 13 (12-20); Aspartate Amino Transferase 18 U/L (5-37); Bilirubin Total 0.9 mg/dL (0.0-1.0); Blood Urea Nitrogen 19 mg/dL (9-16); Calcium 9.1 mg/dL (8.4-10.2); Carbon Dioxide 31 mmol/L (22-29); Chloride 100 mmol/L (96-108); Creatinine Clr Calc Pharmacy 80.9; Estimated Glomerular Filt Rate > 60; Glucose Random 194 mg/dL (60-115); Potassium 2.6 mmol/L (3.3-5.1); Sodium 141 mmol/L (135-145); Total Protein 6.2 g/dL (6.5-8.0)
[2024-07-06] MEDS: Potassium Chloride ER 20 MEQ TAB.ER.PRT 40 MEQ PO (17:54)
[2024-07-06 17:55] LABS: Influenza A PCR NEGATIVE (Negative); Influenza B PCR NEGATIVE (Negative); Magnesium 1.6 mg/dL (1.6-2.6); Resp Syncy Virus RNA Qual PCR NEGATIVE (Negative); SARS COV2 PCR INHOUSE NEGATIVE (Negative)
[2024-07-06] MEDS: Potassium Chloride/H20 10 MEQ/100 ML PIGGYBACK 100 MEQ IV ×3 (17:55→22:27)
--- NOTE | 2024-07-06 17:57 | PC.NURSE ---
potassium given per DEC. Expiratory wheezing bilaterally. Tremors in hands - pt reports that they started earlier today after using his nebulizer
[2024-07-06 18:00] VITALS: BP 138/55; PULSE 85; RESP 11; TEMP 36.9; O2SAT 93
[2024-07-06 19:02] LABS: B Type Natriuretic Peptide 32 pg/mL (<100)
[2024-07-06 20:17] VITALS: O2SAT 89
[2024-07-06 20:21] VITALS: O2SAT 90
[2024-07-06 20:58] LABS: Anion Gap 15 (12-20); Blood Urea Nitrogen 17 mg/dL (9-16); Calcium 9.1 mg/dL (8.4-10.2); Carbon Dioxide 25 mmol/L (22-29); Chloride 102 mmol/L (96-108); Creatinine Clr Calc Pharmacy 83.6; Estimated Glomerular Filt Rate > 60; Glucose Random 299 mg/dL (60-115); Potassium 2.8 mmol/L (3.3-5.1); Sodium 139 mmol/L (135-145)
[2024-07-06 22:01] VITALS: BP 131/61; PULSE 84; RESP 17; TEMP 36.9; O2SAT 93
[2024-07-06] MEDS: Potassium Bicarbonate/Cit AC 25 MEQ TABLET.EFF 50 MEQ PO (22:29)
--- NOTE | 2024-07-06 22:47 | P.HPHOSP_ITS ---
History of Present Illness Date of Service: 07/06/24 Chief Complaint: sob, weakness 73M PMH significant for?severe persistent asthma/COPD overlap syndrome not on home O2, HTN, insulin-dependent type 2 diabetes, peripheral neuropathy, GERD, VIDA, and mood disorder presented with shortness of breath. Patient was discharged from [facility] on 06/26/2024 after hospitalization for COPD exacerbation was discharged on prednisone and azithromycin. States he never really felt 100% better. Complaining of shortness breath worse on exertion denies orthopnea or weight gain. Reporting new cough with production. Also noting weakness and mild intention tremor. Denies fever chills. In ED chest x-ray unremarkable, not hypoxic, noted to have potassium of 2.6. Denies diarrhea or alcohol use, is on chlorthalidone chronically. at time of my seeing patient he is reporting sob much improved. Review of Systems 2 Review of Systems: Yes all other systems are reviewed and are negative [facility] Medical History Class 2 severe obesity with body mass index (BMI) of 35 to 39.9 with serious comorbidity Bilateral primary osteoarthritis of knee Osteoarthritis of right knee Diabetes mellitus type 2, uncontrolled COPD exacerbation Arthritis of both knees Chronic pain syndrome Allergic rhinitis VIDA on CPAP COPD (chronic obstructive pulmonary disease) Lumbar radiculopathy Allergic rhinitis Asthma Benign prostatic hyperplasia Back pain Sleep apnea HTN (hypertension) Lumbar spondylosis Tendon tear Depression Arthritis Asthma Crohn disease Family History Father No problems noted. Mother No problems noted. Surgical History H/O colonoscopy Social History Household Members: Spouse and Children Housing: House Alcohol intake: never Comment: pain 3-4 left knee and buttock Patient Tobacco Use Status: Former Tobacco user Smoked in Last 30 Days: No e-Cigarette/Vaping Use: Never Used Second Hand Smoke Exposure: No Use of substances other than those prescribed or required for medical reasons: No Advance Directives: Yes Advance Directives Information Provided: No Advance Directives on File: No Advance Directives Date on File: 09/16/23 service: No Current occupational status: retired Cognitive needs: Yes (cane) Hearing needs: No Vision needs: Yes (Glasses) Meds Allergies Allergy/AdvReac Type Severity Reaction Status Date / Time hydrocortisone Allergy Severe SWELLING Verified 07/06/24 16:33 [HYDROCORTISONE] NSAIDS (Non-Steroidal Allergy Severe BLEEDING Verified 06/24/24 12:54 Anti-Inflamma [NSAIDS (NON-STEROIDAL ANTI-INFLAMMA] aspirin Allergy Unknown bleeding Verified 06/24/24 12:54 doxycycline AdvReac Severe in-effectiv Verified 06/24/24 12:54 e Active Medications: Current Medications Albuterol/Ipratropium (Albuterol/Iprat 2.5/0.5mg 3 Ml Ampul.Neb) 3 ml INHALE RQ4H WHILE AWAKE PRN PRN Reason: sob Azithromycin (Azithromycin 500 Mg Tablet) 500 mg PO Q24H [place] Enoxaparin Sodium (Enoxaparin Sodium 40 Mg/0.4 Ml Syringe) 40 mg SUBCUT Q24H [place] Glucose (Glucose Gel 15 Gm Gel..Gram.) 15 gm PO Q15M PRN; Protocol PRN Reason: per Hypoglycemia Standing Ord. Potassium Chloride (Potassium Chloride/H20) 10 meq in 100 mls @ 100 mls/hr IV Q1H [place] Stop: 07/07/24 00:29 Last Admin: 07/06/24 22:27 Dose: 100 mls/hr Magnesium Sulfate (Magnesium Sulfate/H2o) 2 gm in 50 mls @ 25 mls/hr IV ONCE ONE Stop: 07/07/24 00:23 Dextrose (D10) 250 mls @ 750 mls/hr IV Q15M PRN; Protocol PRN Reason: per Hypoglycemia Standing Ord. Insulin Glargine (Insulin Glargine,Hum.Rec.Anlog 100 Unit/Ml 10 Ml Vial) 40 unit SUBCUT BEDTIME [place] Insulin Human Lispro (Insulin Lispro 100 Unit/Ml 3 Ml Vial) 0 unit SUBCUT QIDACHS [facility]; Protocol Metoprolol Succinate (Metoprolol Succinate Er 50 Mg Tab.Er.24h) 50 mg PO DAILY [facility]; Protocol Prednisone (Prednisone 20 Mg Tablet) 40 mg PO DAILY [facility] Timolol Maleate (Timolol Maleate 0.5 % Oph Franny 5 Ml Drbtl) 1 drop EYE-LEFT BID [facility] Venlafaxine HCl (Venlafaxine Hcl Er 75 Mg Cap.Er.24h) 75 mg PO DAILY [place] Home Medications ?Medication ?Instructions ?Recorded ?Confirmed ?Last Taken ?Type latanoprost 0.005 % eye drops 1 drp ophthalmic-Left BEDTIME 11/17/21 06/24/24 06/18/24 History brimonidine 0.2 % eye drops 1 drp ophthalmic-Left BID 05/18/23 06/24/24 06/24/24 09:00 History albuterol sulfate 90 mcg/actuation 2 puff inhalation Q4H PRN for 06/19/24 06/24/24 06/19/24 08:00 History aerosol inhaler wheezing insulin glargine 100 unit/mL (3 40 unit subcut BEDTIME 06/19/24 06/24/24 06/18/24 History mL) subcutaneous pen (Lantus Solostar U-100 Insulin) pseudoephedrine HCl 30 mg tablet 30 mg PO Q4H PRN nasal congestion 06/19/24 06/24/24 06/19/24 08:00 History venlafaxine 75 mg capsule,extended 75 mg PO DAILY 06/19/24 06/24/24 06/24/24 09:00 History release 24 hr insulin lispro 100 unit/mL 20 unit subcut TIDAC 06/24/24 06/24/24 06/24/24 09:00 History subcutaneous pen (Humalog KwikPen (U-100) Insulin) timolol maleate 0.5 % eye drops 1 drp ophthalmic-Left BID 06/24/24 06/24/24 06/24/24 09:00 History zolpidem 5 mg tablet 2.5 mg PO BEDTIME 06/24/24 06/24/24 Unknown History Physical Exam 2 Vital Signs and Narrative: Vital Signs: Last Vital Signs Temp 98.5 F 07/06/24 22:01 Pulse 84 07/06/24 22:01 Resp 17 07/06/24 22:01 BP 131/61 07/06/24 22:01 Pulse Ox 93 07/06/24 22:01 O2 Del Method Room Air 07/06/24 22:01 O2 Flow Rate 2 07/06/24 18:00 Oxygen Flow Rate 2 07/06/24 16:30 BMI result Body Mass Index 32.7 General: AO X 3, no acute distress Resp: CTA bilateral, no accessory muscles used CVS: S1,S2,RRR GI: soft, non tender, non distended Neuro: motor grossly intact, alert Psych: appropriate affect, appropriate insight Results Labs 07/06/24 17:01 07/06/24 20:31 Labs: Laboratory Results - last 24 hr 07/06/24 07/06/24 07/06/24 17:01 17:07 20:31 MCV 85.5 MCH 29.1 MCHC 34.0 RDW 14.5 Plt Count 206 D MPV 11.2 Immature Gran % (Auto) 1.0 H Neut % (Auto) 69.2 Lymph % (Auto) 17.8 L [place] % (Auto) 7.7 Eos % (Auto) 3.9 Baso % (Auto) 0.4 Lymph # (Auto) 1.4 [place] # (Auto) 0.6 Eos # (Auto) 0.3 Baso # (Auto) 0.0 Abs Immat Gran (auto) 0.08 H Absolute Neuts (auto) 5.4 Absolute Nucleated RBC 0.000 Nucleated RBC % (auto) 0.0 PT 14.0 H INR 1.2 H VBG pH 7.45 H VBG pCO2 47 VBG pO2 53 VBG HCO3 33 H VBG O2 Saturation 86.0 VBG Base Excess 8.3 Anion Gap 13 15 Estim Creat Clear Calc 80.9 83.6 Estimated GFR > 60 > 60 Random Glucose 194 H 299 H Calcium 9.1 9.1 Magnesium 1.6 Total Bilirubin 0.9 AST 18 ALT 22 Alkaline Phosphatase 95 Troponin I High Sens 3.0 B-Natriuretic Peptide 32 Total Protein 6.2 L Albumin 3.3 L Influenza Type A (PCR) NEGATIVE Influenza Type B (PCR) NEGATIVE RSV RNA Qual (PCR) NEGATIVE SARS-CoV-2 RNA (RT-PCR) NEGATIVE Imaging Radiologist's Impressions: Impressions Chest X-Ray 07/06/24 16:30 IMPRESSION: No acute cardiopulmonary disease. Stable appearance of the heart and lungs. Electronically signed by: Davon Garcia DO 07/06/2024 06:46 PM EDT RP Assessment and Plan (1) Acute hypokalemia: Status: Acute Plan 73M PMH significant for?severe persistent asthma/COPD overlap syndrome not on home O2, HTN, insulin-dependent type 2 diabetes, peripheral neuropathy, GERD, VIDA, and mood disorder presented with shortness of breath Severe persistent asthma/COPD with acute decompensation Prednisone, azithromycin, DuoNebs Acute hypokalemia and hypomagnesemia ? Due to chlorthalidone, though has been on it chronically Denies alcohol or diarrhea Replace and monitor Diabetes with hyperglycemia Basal bolus insulin VIDA, obesity Weight loss, CPAP at night Hypertension Hold chlorthalidone for hypokalemia Continue metoprolol Mood disorder Venlafaxine Peripheral neuropathy Gabapentin GERD PPI DVT prophylaxis with Lovenox Full Code Patient with significant hypokalemia requiring close monitoring on telemetry for arrhythmias, ongoing replacement and monitoring therefore expected require at least 2 midnights inpatient Quality Stroke Does the patient have a stroke diagnosis?: No VTE Prior VTE?: No VTE Risk Level:: Medical - moderate - high VTE Device Contraindication: Treatment Not Indicated VTE Drug Contraindication: N/A - Med Ordered
[2024-07-06] MEDS: Magnesium Sulfate/H2O 2 GM/50 ML PIGGYBACK IV (22:54)
[2024-07-06 23:22] LABS: Glucose, Whole Blood 316 mg/dL (60-115)
[2024-07-06] MEDS: Gabapentin 300 MG CAPSULE PO (23:37)
[2024-07-06] MEDS: Insulin Glargine,Hum.rec.anlog 100 UNIT/ML 10 ML VIAL 40 UNIT SUBCUT (23:37)
[2024-07-07] VITALS (10 sets, daily range): BP systolic 130–153; BP diastolic 56–90; PULSE 58–94; RESP 16–20; TEMP 36–36.7; O2SAT 92–95
[2024-07-07] MEDS: Potassium Chloride/H20 10 MEQ/100 ML PIGGYBACK 100 MEQ IV (00:58)
[2024-07-07] MEDS: Insulin Lispro 100 UNIT/ML 3 ML VIAL SUBCUT ×5 (01:59→21:18)
--- NOTE | 2024-07-07 02:01 | MHC.EDTECH ---
This pct assumed care of patient at 0100 ,vitals taken ,pt belongings list done ,Patient was hungry ,turkey sandwich and diet freya gary given .Call rivas within Pt reach .
--- NOTE | 2024-07-07 02:02 | PC.NURSE ---
Pr POC 316, admelog ordered for 729. Message sent to and t/w instructed to give admelog ss dose now. Pt received 10units admelog at this time. Pt received 40 units of Lantus at ordered time. bedtime snack given. Pt has no complaints at this time.
[2024-07-07] MEDS: Flu Vacc TS2024-25(6mos up)/PF 0.5 ML SYRINGE IM (03:51)
[2024-07-07] MEDS: ALPRAZolam 0.5 MG TABLET PO (03:51)
--- NOTE | 2024-07-07 04:46 | PC.NURSE ---
This nurse attempted to complete med req, unable to complete due to message coming up as another user updating screen, unable to edit
[2024-07-07] MEDS: Omeprazole 20 MG CAPSULE.DR PO (06:14)
[2024-07-07 06:58] LABS: Hematocrit 37.7 % (42.0-52.0); Hemoglobin 13.1 g/dl (14.0-18.0); Mean Corpuscular HGB Conc 34.7 g/dl (31.0-36.0); Mean Corpuscular Hemoglobin 29.4 pg (27.0-33.0); Mean Corpuscular Volume 84.7 fL (80.0-98.0); Mean Platelet Volume 11.2 fL (9.4-12.4); Platelet Count 196 X10*3/uL (160-400); Red Blood Count 4.45 X10*6/uL (4.60-5.80); Red Cell Distribution Width 14.4 % (11.0-16.0); White Blood Count 7.9 X10*3/uL (4.8-10.8)
[2024-07-07 07:29] LABS: Anion Gap 12 (12-20); Blood Urea Nitrogen 17 mg/dL (9-16); Calcium 9.2 mg/dL (8.4-10.2); Carbon Dioxide 27 mmol/L (22-29); Chloride 103 mmol/L (96-108); Creatinine Clr Calc Pharmacy 86.6; Estimated Glomerular Filt Rate > 60; Glucose Fasting 284 mg/dL (60-99); Magnesium 2.2 mg/dL (1.6-2.6); Potassium 3.8 mmol/L (3.3-5.1); Sodium 138 mmol/L (135-145)
[2024-07-07 07:51] LABS: Glucose, Whole Blood 241 mg/dL (60-115)
--- NOTE | 2024-07-07 07:52 | PHA.MEDREC ---
Pharmacy Consult ? Medication Reconciliation Pharmacy has completed the medication reconciliation. Patient was just here on 06/27/24. Used medical records as well as pharmacy claims
[2024-07-07] MEDS: Gabapentin 300 MG CAPSULE PO ×2 (07:55→21:17)
[2024-07-07] MEDS: predniSONE 20 MG TABLET 40 MG PO (07:55)
[2024-07-07] MEDS: Azithromycin 500 MG TABLET PO (07:55)
[2024-07-07] MEDS: Metoprolol Succinate ER 50 MG TAB.ER.24H PO (07:55)
[2024-07-07] MEDS: Enoxaparin Sodium 40 MG/0.4 ML SYRINGE SUBCUT (07:56)
[2024-07-07] MEDS: Venlafaxine HCl ER 75 MG CAP.ER.24H PO (07:56)
[2024-07-07] MEDS: Fluticasone/Vilanterol 100/25 BLST.W.DEV 1 PUFF INHALE (09:08)
[2024-07-07 11:10] LABS: Glucose, Whole Blood 271 mg/dL (60-115)
--- NOTE | 2024-07-07 11:32 | HO.PM.IMPN ---
Subjective Subjective Date of Service: 07/07/24 Interval History: Feels shortness of breath is better but not completely resolved, denies smoking, but smokes, no pets, denies new medications, denies nausea vomiting, no diarrhea, no fever, no chills, no other acute events overnight. Review of Systems All other system reviewed and negative Physical Exam Vital Signs: Vital Signs: Last Vital Signs Temp 97.7 F 07/07/24 08:00 Pulse 80 07/07/24 09:08 Resp 18 07/07/24 09:08 BP 134/59 L 07/07/24 08:00 Pulse Ox 92 07/07/24 08:00 O2 Del Method Room Air 07/07/24 08:00 O2 Flow Rate 2 07/06/24 18:00 Oxygen Flow Rate 2 07/06/24 16:30 BMI result Body Mass Index 32.7 Const: Other: General awake alert x3, in no acute distress. Anicteric sclera Neck no JVD. CVS regular rate rhythm, Respiratory lungs prolonged expiration, scattered wheeze Gastrointestinal abdomen soft, non tender, bowel sounds audible, no guarding , no rigidity. Extremities no edema. Neuro non focal Skin no rash Psych appropriate affect Objective Data Active Medications Albuterol/Ipratropium (Albuterol/Iprat 2.5/0.5mg 3 Ml Ampul.Neb) 3 ml INHALE RQ4H WHILE AWAKE PRN PRN Reason: sob Alprazolam (Alprazolam 0.5 Mg Tablet) 0.5 mg PO Q24H PRN PRN Reason: Anxiety Last Admin: 07/07/24 03:51 Dose: 0.5 mg Documented By: JASON Azithromycin (Azithromycin 500 Mg Tablet) 500 mg PO Q24H [facility] Last Admin: 07/07/24 07:55 Dose: 500 mg Documented By: SUZIE Brimonidine Tartrate (Brimonidine Tartrate 0.2% Oph 5 Ml Bottle) 1 drop EYE-LEFT BID [facility] Last Admin: 07/07/24 08:01 Dose: Not Given Documented By: SUZIE Non-Admin Reason: Patient Refused Enoxaparin Sodium (Enoxaparin Sodium 40 Mg/0.4 Ml Syringe) 40 mg SUBCUT Q24H [facility] Last Admin: 07/07/24 07:56 Dose: 40 mg Documented By: SUZIE Fluticasone/Vilanterol (Fluticasone/Vilanterol 100/25 Blst.W.Dev) 1 puff INHALE RDAILY [facility] Last Admin: 07/07/24 09:08 Dose: 1 puff Documented By: JOSE Gabapentin (Gabapentin 300 Mg Capsule) 300 mg PO BID [facility] Last Admin: 07/07/24 07:55 Dose: 300 mg Documented By: SUZIE Glucose (Glucose Gel 15 Gm Gel..Gram.) 15 gm PO Q15M PRN; Protocol PRN Reason: per Hypoglycemia Standing Ord. Dextrose (D10) 250 mls @ 750 mls/hr IV Q15M PRN; Protocol PRN Reason: per Hypoglycemia Standing Ord. Insulin Glargine (Insulin Glargine,Hum.Rec.Anlog 100 Unit/Ml 10 Ml Vial) 40 unit SUBCUT BEDTIME [facility] Last Admin: 07/06/24 23:37 Dose: 40 unit Documented By: SHAGGY Insulin Human Lispro (Insulin Lispro 100 Unit/Ml 3 Ml Vial) 0 unit SUBCUT QIDACHS [facility]; Protocol Last Admin: 07/07/24 11:12 Dose: 6 unit Documented By: SUZIE Latanoprost (Latanoprost 0.005 % Ophth Franny 2.5 Ml Drops) 1 drop EYE-LEFT BEDTIME [facility] Last Admin: 07/06/24 23:37 Dose: Not Given Documented By: SHAGGY Non-Admin Reason: Med Not Available Metoprolol Succinate (Metoprolol Succinate Er 50 Mg Tab.Er.24h) 50 mg PO DAILY [facility]; Protocol Last Admin: 07/07/24 07:55 Dose: 50 mg Documented By: SUZIE Omeprazole (Omeprazole 20 Mg Capsule.Dr) 20 mg PO DAILY@0630 [facility] Last Admin: 07/07/24 06:14 Dose: 20 mg Documented By: JASON Prednisone (Prednisone 20 Mg Tablet) 40 mg PO DAILY [facility] Last Admin: 07/07/24 07:55 Dose: 40 mg Documented By: SUZIE Timolol Maleate (Timolol Maleate 0.5 % Oph Franny 5 Ml Drbtl) 1 drop EYE-LEFT BID [facility] Last Admin: 07/07/24 08:01 Dose: Not Given Documented By: SUZIE Non-Admin Reason: Patient Refused Venlafaxine HCl (Venlafaxine Hcl Er 75 Mg Cap.Er.24h) 75 mg PO DAILY [facility] Last Admin: 07/07/24 07:56 Dose: 75 mg Documented By: SUZIE Labs 07/07/24 06:48 07/07/24 06:48 Labs: Laboratory Results - last 24 hr 07/06/24 07/06/24 07/06/24 17:01 17:07 20:31 MCV 85.5 MCH 29.1 MCHC 34.0 RDW 14.5 Plt Count 206 D MPV 11.2 Immature Gran % (Auto) 1.0 H Neut % (Auto) 69.2 Lymph % (Auto) 17.8 L [place] % (Auto) 7.7 Eos % (Auto) 3.9 Baso % (Auto) 0.4 Lymph # (Auto) 1.4 [place] # (Auto) 0.6 Eos # (Auto) 0.3 Baso # (Auto) 0.0 Abs Immat Gran (auto) 0.08 H Absolute Neuts (auto) 5.4 Absolute Nucleated RBC 0.000 Nucleated RBC % (auto) 0.0 PT 14.0 H INR 1.2 H VBG pH 7.45 H VBG pCO2 47 VBG pO2 53 VBG HCO3 33 H VBG O2 Saturation 86.0 VBG Base Excess 8.3 Anion Gap 13 15 Estim Creat Clear Calc 80.9 83.6 Estimated GFR > 60 > 60 POC Glucose Random Glucose 194 H 299 H Fasting Glucose Calcium 9.1 9.1 Magnesium 1.6 Total Bilirubin 0.9 AST 18 ALT 22 Alkaline Phosphatase 95 Troponin I High Sens 3.0 B-Natriuretic Peptide 32 Total Protein 6.2 L Albumin 3.3 L Influenza Type A (PCR) NEGATIVE Influenza Type B (PCR) NEGATIVE RSV RNA Qual (PCR) NEGATIVE SARS-CoV-2 RNA (RT-PCR) NEGATIVE 07/06/24 07/07/24 07/07/24 23:17 06:48 07:47 MCV 84.7 MCH 29.4 MCHC 34.7 RDW 14.4 Plt Count 196 MPV 11.2 Immature Gran % (Auto) Neut % (Auto) Lymph % (Auto) [place] % (Auto) Eos % (Auto) Baso % (Auto) Lymph # (Auto) [place] # (Auto) Eos # (Auto) Baso # (Auto) Abs Immat Gran (auto) Absolute Neuts (auto) Absolute Nucleated RBC 0.000 Nucleated RBC % (auto) 0.0 PT INR VBG pH VBG pCO2 VBG pO2 VBG HCO3 VBG O2 Saturation VBG Base Excess Anion Gap 12 Estim Creat Clear Calc 86.6 Estimated GFR > 60 POC Glucose 316 H 241 H Random Glucose Fasting Glucose 284 H Calcium 9.2 Magnesium 2.2 Total Bilirubin AST ALT Alkaline Phosphatase Troponin I High Sens B-Natriuretic Peptide Total Protein Albumin Influenza Type A (PCR) Influenza Type B (PCR) RSV RNA Qual (PCR) SARS-CoV-2 RNA (RT-PCR) 07/07/24 11:06 MCV MCH MCHC RDW Plt Count MPV Immature Gran % (Auto) Neut % (Auto) Lymph % (Auto) [place] % (Auto) Eos % (Auto) Baso % (Auto) Lymph # (Auto) [place] # (Auto) Eos # (Auto) Baso # (Auto) Abs Immat Gran (auto) Absolute Neuts (auto) Absolute Nucleated RBC Nucleated RBC % (auto) PT INR VBG pH VBG pCO2 VBG pO2 VBG HCO3 VBG O2 Saturation VBG Base Excess Anion Gap Estim Creat Clear Calc Estimated GFR POC Glucose 271 H Random Glucose Fasting Glucose Calcium Magnesium Total Bilirubin AST ALT Alkaline Phosphatase Troponin I High Sens B-Natriuretic Peptide Total Protein Albumin Influenza Type A (PCR) Influenza Type B (PCR) RSV RNA Qual (PCR) SARS-CoV-2 RNA (RT-PCR) Assessment and Plan (1) Acute hypokalemia: Status: Acute (2) COPD exacerbation: Status: Acute Plan 73M PMH significant for?severe persistent asthma/COPD overlap syndrome not on home O2, HTN, insulin-dependent type 2 diabetes, peripheral neuropathy, GERD, VIDA, and mood disorder presented with shortness of breath Acute hypoxic respiratory failure due to Severe persistent asthma/COPD with acute decompensation Shortness of breath improving, not on home O2 Continue Prednisone, azithromycin, DuoNebs Add Breo Recommend to avoid secondhand smoke Acute hypokalemia and hypomagnesemia ? Due to chlorthalidone, though has been on it chronically Denies alcohol or diarrhea Repleted and normalized,follow lytes Diabetes type 2 with hyperglycemia Elevated blood sugars likely due to steroids, continue Lantus and insulin sliding scale. VIDA, class 1 obesity Weight loss, CPAP at night Hypertension Hold chlorthalidone for hypokalemia Continue metoprolol and follow BP Mood disorder Venlafaxine Peripheral neuropathy Gabapentin GERD PPI DVT prophylaxis with Lovenox Full Code Patient will require continued inpatient hospitalization for monitoring of electrolytes and COPD exacerbation Quality Stroke Does the patient have a stroke diagnosis?: No VTE Prior VTE?: No VTE Risk Level:: Medical - moderate - high VTE Device Contraindication: Treatment Not Indicated VTE Drug Contraindication: N/A - Med Ordered
--- NOTE | 2024-07-07 14:46 | MHC.CM.PN ---
IMM 07/07/24, EMR REVIEWED, PT W/AFLUTTER W/RVR, CM MET W/PT WHO REPORTS HE LIVES W/, IS FULLY INDEP W/CARE, HAS A CANE HE USES PRN AND CPAP, NO HOME SERVICES AND PT DENIES NEED FOR HOME SERVICES ON DC AND GOAL IS HOME SELF CARE. PCP ON FILE VERIFIED AND PT REPORTS HIS PCP IS AND DTR, COPY REQUESTED.
[2024-07-07] MEDS: Albuterol/Iprat 2.5/0.5MG 3 ML AMPUL.NEB INHALE ×2 (15:26→19:41)
[2024-07-07 15:36] LABS: Glucose, Whole Blood 155 mg/dL (60-115)
[2024-07-07] MEDS: clonazePAM 0.5 MG TABLET PO (16:58)
[2024-07-07 20:40] LABS: Glucose, Whole Blood 272 mg/dL (60-115)
[2024-07-07] MEDS: Zolpidem Tartrate 5 MG TABLET 2.5 MG PO (21:17)
[2024-07-07] MEDS: Venlafaxine HCl ER 150 MG CAP.ER.24H PO (21:17)
[2024-07-07] MEDS: Insulin Glargine,Hum.rec.anlog 100 UNIT/ML 10 ML VIAL 40 UNIT SUBCUT (21:17)
--- NOTE | 2024-07-07 21:43 | PC.NURSE ---
Patient had 35beat vtach on telemonitor - pt assessed, asymptomatic watching tv sitting up in bed stating did not feel anything different. Pt denies all cardaic symptoms as this time. VSS. HR back in 60s after episode in NSR. aware
[2024-07-07] MEDS: Potassium Chloride ER 20 MEQ TAB.ER.PRT PO (21:59)
[2024-07-08] VITALS (9 sets, daily range): BP systolic 137–153; BP diastolic 65–70; PULSE 59–92; RESP 12–20; TEMP 36.2–37.2; O2SAT 91–99
--- NOTE | 2024-07-08 | ECG_ITS ---
Test Reason : FOLLOW UP VTACH Blood Pressure : / mmHG Vent. Rate : 071 BPM Atrial Rate : 071 BPM P-R Int : 162 ms QRS Dur : 102 ms QT Int : 422 ms P-R-T Axes : 069 004 028 degrees QTc Int : 458 ms Normal sinus rhythm Normal ECG When compared with ECG of 06-JUL-2024 16:31, No significant change was found Referred By: Diogo Pinto Electronically Signed By:NADJA MANRIQUE
[2024-07-08] MEDS: Omeprazole 20 MG CAPSULE.DR PO (06:23)
[2024-07-08 07:39] LABS: Glucose, Whole Blood 125 mg/dL (60-115)
[2024-07-08] MEDS: Gabapentin 300 MG CAPSULE PO ×2 (08:09→20:33)
[2024-07-08] MEDS: predniSONE 20 MG TABLET 40 MG PO (08:09)
[2024-07-08] MEDS: Venlafaxine HCl ER 75 MG CAP.ER.24H PO (08:09)
[2024-07-08] MEDS: Metoprolol Succinate ER 50 MG TAB.ER.24H PO (08:09)
[2024-07-08] MEDS: Azithromycin 500 MG TABLET PO (08:09)
[2024-07-08] MEDS: Enoxaparin Sodium 40 MG/0.4 ML SYRINGE SUBCUT (08:09)
[2024-07-08] MEDS: Fluticasone/Vilanterol 100/25 BLST.W.DEV 1 PUFF INHALE (08:15)
[2024-07-08] MEDS: Albuterol/Iprat 2.5/0.5MG 3 ML AMPUL.NEB INHALE ×4 (08:15→19:29)
--- NOTE | 2024-07-08 10:15 | PM.CNCAR ---
History of Present Illness History of Present Illness Date of Service: 07/08/24 Chief complaint: SOB Narrative: This is a cardiology consultation regarding ventricular tachycardia. Patient listed to have severe persistent asthma/COPD overlap syndrome, diabetes, neuropathy and other comorbidities. It seems that he was recently discharged from [place] after COPD exacerbation and put on steroids and antibiotics. Listed as azithromycin. Then he really did not feel better. Seems he got readmitted and in this context, also had low potassium of 2.6. He is again being treated for asthma/COPD exacerbation. There is also description of acute hypokalemia/hypomagnesemia in the initial H&P. Overnight, he had an episode of ventricular tachycardia, almost 40 beats and hence we are consulted to see him. Patient denies any chest pains. He denies any cardiac history including coronary disease, myocardial infarction or cardiomyopathy or in fact any other cardiac concerns. He states he is feeling fine otherwise. Review of Systems Review of Systems: Yes all other systems are reviewed and are negative Constitutional: Constitutional: Reports as per HPI and Reports no additional constitutional complaints Eyes: Eyes: Reports as per HPI and Denies no additional eye complaints ENT: Denies system reviewed and no additional complaints, except as documented and Reports as per HPI Cardiovascular: Cardiovascular: Reports as per HPI, Reports no additional cardiovascular complaints, Denies acrocyanosis, Denies cool extremities, Denies chest pain, Denies leg edema, Denies lightheadedness, Denies palpitations and Reports dyspnea Respiratory: Respiratory: Reports as per HPI, Denies no additional respiratory complaints and Reports dyspnea Gastrointestinal: Gastrointestinal: Reports as per HPI and Denies no additional gastrointestinal complaints Genitourinary: Genitourinary: Reports no additional male genitourinary complaints and Reports as per HPI Musculoskeletal: Musculoskeletal: Reports no additional musculoskeletal complaints and Reports as per HPI Integumentary/Breasts: Skin/Breast: Reports system reviewed and no additional complaints, except as docu Neurologic: Reports system reviewed and no additional complaints, except as documented and Reports as per HPI Psychiatric: Psychiatric: Reports no additional psychiatric complaints and Reports as per HPI Endocrine: Endocrine: Reports no additional endocrine complaints, Reports as per HPI and Denies palpitations Hematologic/Lymphatic: Hematologic/Lymphatic: Reports no additional hematologic/lymphatic complaints and Reports as per HPI Allergic/Immunologic: Allergic/Immunologic: Reports no additional allergic/immunologic complaints and Reports as per HPI PMFSH Past Medical History Medical History Class 2 severe obesity with body mass index (BMI) of 35 to 39.9 with serious comorbidity Bilateral primary osteoarthritis of knee Osteoarthritis of right knee Diabetes mellitus type 2, uncontrolled COPD exacerbation Arthritis of both knees Chronic pain syndrome Allergic rhinitis VIDA on CPAP COPD (chronic obstructive pulmonary disease) Lumbar radiculopathy Allergic rhinitis Asthma Benign prostatic hyperplasia Back pain Sleep apnea HTN (hypertension) Lumbar spondylosis Tendon tear Depression Arthritis Asthma Crohn disease Family History Family History Father No problems noted. Mother No problems noted. Surgical History Surgical History H/O colonoscopy Social History Social History Household Members: Spouse Housing: House Do you presently have visiting nurse or other home services: No Alcohol intake: never Comment: pain 3-4 left knee and buttock Patient Tobacco Use Status: Former Tobacco user e-Cigarette/Vaping Use: Never Used Second Hand Smoke Exposure: No Advance Directives Date on File: 07/07/24 service: No Current occupational status: retired Cognitive needs: Yes (cane) Hearing needs: No Vision needs: Yes (Glasses) Meds Allergies Allergy/AdvReac Type Severity Reaction Status Date / Time hydrocortisone Allergy Severe SWELLING Verified 07/06/24 16:33 [HYDROCORTISONE] NSAIDS (Non-Steroidal Allergy Severe BLEEDING Verified 06/24/24 12:54 Anti-Inflamma [NSAIDS (NON-STEROIDAL ANTI-INFLAMMA] aspirin Allergy Unknown bleeding Verified 06/24/24 12:54 doxycycline AdvReac Severe in-effectiv Verified 06/24/24 12:54 e Active Medications: Current Medications Albuterol Sulfate (Albuterol Sulfate 90 Mcg 8 Gm Inhaler) 2 puff INHALE Q4H PRN PRN Reason: for wheezing Albuterol/Ipratropium (Albuterol/Iprat 2.5/0.5mg 3 Ml Ampul.Neb) 3 ml INHALE RQ4H WHILE AWAKE PRN PRN Reason: sob Albuterol/Ipratropium (Albuterol/Iprat 2.5/0.5mg 3 Ml Ampul.Neb) 3 ml INHALE RQID [place] Last Admin: 07/08/24 08:15 Dose: 3 ml Alprazolam (Alprazolam 0.5 Mg Tablet) 0.5 mg PO Q24H PRN PRN Reason: Anxiety Last Admin: 07/07/24 03:51 Dose: 0.5 mg Azithromycin (Azithromycin 500 Mg Tablet) 500 mg PO Q24H [facility] Last Admin: 07/08/24 08:09 Dose: 500 mg Brimonidine Tartrate (Brimonidine Tartrate 0.2% Oph 5 Ml Bottle) 1 drop EYE-LEFT BID [facility] Last Admin: 07/08/24 08:07 Dose: Not Given Clonazepam (Clonazepam 0.5 Mg Tablet) 0.5 mg PO DAILY@1700 [facility] Last Admin: 07/07/24 16:58 Dose: 0.5 mg Enoxaparin Sodium (Enoxaparin Sodium 40 Mg/0.4 Ml Syringe) 40 mg SUBCUT Q24H [facility] Last Admin: 07/08/24 08:09 Dose: 40 mg Fluticasone/Vilanterol (Fluticasone/Vilanterol 100/25 Blst.W.Dev) 1 puff INHALE RDAILY [facility] Last Admin: 07/08/24 08:15 Dose: 1 puff Gabapentin (Gabapentin 300 Mg Capsule) 300 mg PO BID [facility] Last Admin: 07/08/24 08:09 Dose: 300 mg Glucose (Glucose Gel 15 Gm Gel..Gram.) 15 gm PO Q15M PRN; Protocol PRN Reason: per Hypoglycemia Standing Ord. Dextrose (D10) 250 mls @ 750 mls/hr IV Q15M PRN; Protocol PRN Reason: per Hypoglycemia Standing Ord. Insulin Glargine (Insulin Glargine,Hum.Rec.Anlog 100 Unit/Ml 10 Ml Vial) 40 unit SUBCUT BEDTIME [facility] Last Admin: 07/07/24 21:17 Dose: 40 unit Insulin Human Lispro (Insulin Lispro 100 Unit/Ml 3 Ml Vial) 0 unit SUBCUT QIDACHS [facility]; Protocol Last Admin: 07/08/24 07:45 Dose: Not Given Latanoprost (Latanoprost 0.005 % Ophth Franny 2.5 Ml Drops) 1 drop EYE-LEFT BEDTIME [facility] Last Admin: 07/07/24 21:22 Dose: Not Given Metoprolol Succinate (Metoprolol Succinate Er 50 Mg Tab.Er.24h) 50 mg PO DAILY [facility]; Protocol Last Admin: 07/08/24 08:09 Dose: 50 mg Omeprazole (Omeprazole 20 Mg Capsule.Dr) 20 mg PO DAILY@0630 [facility] Last Admin: 07/08/24 06:23 Dose: 20 mg Prednisone (Prednisone 20 Mg Tablet) 40 mg PO DAILY [facility] Last Admin: 07/08/24 08:09 Dose: 40 mg Timolol Maleate (Timolol Maleate 0.5 % Oph Franny 5 Ml Drbtl) 1 drop EYE-LEFT BID [facility] Last Admin: 07/08/24 08:10 Dose: Not Given Venlafaxine HCl (Venlafaxine Hcl Er 75 Mg Cap.Er.24h) 75 mg PO DAILY [facility] Last Admin: 07/08/24 08:09 Dose: 75 mg Venlafaxine HCl (Venlafaxine Hcl Er 150 Mg Cap.Er.24h) 150 mg PO BEDTIME [facility] Last Admin: 07/07/24 21:17 Dose: 150 mg Zolpidem Tartrate (Zolpidem Tartrate 5 Mg Tablet) 2.5 mg PO BEDTIME [facility] Last Admin: 07/07/24 21:17 Dose: 2.5 mg Home Medications ?Medication ?Instructions ?Recorded ?Confirmed ?Last Taken ?Type latanoprost 0.005 % eye drops 1 drp ophthalmic-Left BEDTIME 11/17/21 07/07/24 06/18/24 History brimonidine 0.2 % eye drops 1 drp ophthalmic-Left BID 05/18/23 07/07/24 06/24/24 09:00 History albuterol sulfate 90 mcg/actuation 2 puff inhalation Q4H PRN for 06/19/24 07/07/24 06/19/24 08:00 History aerosol inhaler wheezing insulin glargine 100 unit/mL (3 40 unit subcut BEDTIME 06/19/24 07/07/24 06/18/24 History mL) subcutaneous pen (Lantus Solostar U-100 Insulin) venlafaxine 75 mg capsule,extended 75 mg PO DAILY 06/19/24 07/07/24 06/24/24 09:00 History release 24 hr insulin lispro 100 unit/mL 20 unit subcut TIDAC 06/24/24 07/07/24 06/24/24 09:00 History subcutaneous pen (Humalog KwikPen (U-100) Insulin) timolol maleate 0.5 % eye drops 1 drp ophthalmic-Left BID 06/24/24 07/07/24 06/24/24 09:00 History zolpidem 5 mg tablet 2.5 mg PO BEDTIME 06/24/24 07/07/24 Unknown History Physical Exam Vital Signs: Vital Signs: Last Vital Signs Temp 98.9 F 07/08/24 07:23 Pulse 86 07/08/24 08:16 Resp 12 07/08/24 08:16 BP 144/67 H 07/08/24 07:23 Pulse Ox 93 07/08/24 07:23 O2 Del Method CPAP 07/08/24 07:23 O2 Flow Rate 2 07/06/24 18:00 Oxygen Flow Rate 2 07/06/24 16:30 BMI result Body Mass Index 32.7 Const: General: comfortable and no acute distress Orientation/consciousness: patient oriented x3 HEENT: Other: Unremarkable Head: Yes normal to inspection Neck: Neck: Yes normal visual inspection Chest: Chest palpation & inspection: normal inspection of the chest Resp: Auscultation: rhonchi Cardio: Palpation: normal PMI Heart sounds: S1 normal heart sound present, S2 normal heart sound present, no gallops, no murmurs and no rubs GI: Palpation (GI): Soft to palpation Back/Spine/Pelvis: Other: unremarkable Skin: General skin exam: no rashes or lesions noted Neuro: General: patient oriented x3 Extrem: General: Yes normal to inspection Psych: Mental Status: mental status grossly normal Objective Labs and Meds 07/07/24 06:48 07/07/24 06:48 Lab results: Laboratory Results - last 24 hr 07/07/24 07/07/24 07/07/24 11:06 15:32 20:34 POC Glucose 271 H 155 H 272 H 07/08/24 07:27 POC Glucose 125 H ECG Interpretation: EKG with underlying sinus rhythm at 85/Min; no significant ST-T changes and otherwise unremarkable. Normal CT and corrected QT. Assessment and Plan (1) Ventricular tachycardia: Status: Acute Plan Available troponin level is unremarkable. May recheck. Cardiac BNP levels within normal limits. In the EKG, corrected QT is 476 milliseconds and not too prolonged. May repeat. The potassium levels were 2.6 and 2.8 and repeat is 3.8. Magnesium level was 1.6, repeat 2.2. Overall, monomorphic VT could be related to electrolyte abnormalities. No evidence of acute coronary syndrome. Will get an echocardiogram tomorrow. Consider outpatient stress testing. He is already on beta-blockers and that can be continued. If any recurrent VT events, we will readdress. Will follow-up with you. Procedures Date of Service Date of Service: 07/08/24
[2024-07-08 11:04] LABS: Troponin-I High Sensitivity 4.3 ng/L (<3.5-35.0)
[2024-07-08 11:11] LABS: Glucose, Whole Blood 244 mg/dL (60-115)
[2024-07-08] MEDS: Insulin Lispro 100 UNIT/ML 3 ML VIAL SUBCUT ×3 (11:49→20:38)
--- NOTE | 2024-07-08 13:31 | HO.PM.IMPN ---
Subjective Subjective Date of Service: 07/08/24 Interval History: Events from last night noted patient had an episode of V-tach close to 40 beats, was asymptomatic with no chest pain, no palpitation, no shortness of breath or diaphoresis. This morning patient denies acute symptoms of chest pain, no worsening shortness of breath, no palpitations, no lightheadedness, no dizziness no near-syncope. Tolerating diet no nausea, no vomiting, no abdominal pain. Review of Systems All other system reviewed and are negative Physical Exam Vital Signs: Vital Signs: Last Vital Signs Temp 98.3 F 07/08/24 10:56 Pulse 92 07/08/24 11:15 Resp 18 07/08/24 11:15 BP 149/65 H 07/08/24 10:56 Pulse Ox 91 L 07/08/24 10:56 O2 Del Method CPAP 07/08/24 07:23 O2 Flow Rate 2 07/06/24 18:00 Oxygen Flow Rate 2 07/06/24 16:30 BMI result Body Mass Index 32.7 Const: Other: General awake alert x3, in no acute distress. Anicteric sclera Neck no JVD. CVS regular rate rhythm, Respiratory lungs prolonged expiration, no wheeze Gastrointestinal abdomen soft, non tender, bowel sounds audible, no guarding , no rigidity. Extremities no edema. Neuro non focal Skin no rash Psych appropriate affect Objective Data Active Medications Albuterol Sulfate (Albuterol Sulfate 90 Mcg 8 Gm Inhaler) 2 puff INHALE Q4H PRN PRN Reason: for wheezing Albuterol/Ipratropium (Albuterol/Iprat 2.5/0.5mg 3 Ml Ampul.Neb) 3 ml INHALE RQ4H WHILE AWAKE PRN PRN Reason: sob Albuterol/Ipratropium (Albuterol/Iprat 2.5/0.5mg 3 Ml Ampul.Neb) 3 ml INHALE TID [place] Alprazolam (Alprazolam 0.5 Mg Tablet) 0.5 mg PO Q24H PRN PRN Reason: Anxiety Last Admin: 07/07/24 03:51 Dose: 0.5 mg Documented By: JASON Azithromycin (Azithromycin 500 Mg Tablet) 500 mg PO Q24H [place] Last Admin: 07/08/24 08:09 Dose: 500 mg Documented By: DILLON Brimonidine Tartrate (Brimonidine Tartrate 0.2% Oph 5 Ml Bottle) 1 drop EYE-LEFT BID [facility] Last Admin: 07/08/24 08:07 Dose: Not Given Documented By: DILLON Non-Admin Reason: Patient Refused Clonazepam (Clonazepam 0.5 Mg Tablet) 0.5 mg PO DAILY@1700 [facility] Last Admin: 07/07/24 16:58 Dose: 0.5 mg Documented By: NGOZI Enoxaparin Sodium (Enoxaparin Sodium 40 Mg/0.4 Ml Syringe) 40 mg SUBCUT Q24H [facility] Last Admin: 07/08/24 08:09 Dose: 40 mg Documented By: DILLON Fluticasone/Vilanterol (Fluticasone/Vilanterol 100/25 Blst.W.Dev) 1 puff INHALE RDAILY [facility] Last Admin: 07/08/24 08:15 Dose: 1 puff Documented By: NIHARIKA Gabapentin (Gabapentin 300 Mg Capsule) 300 mg PO BID [facility] Last Admin: 07/08/24 08:09 Dose: 300 mg Documented By: DILLON Glucose (Glucose Gel 15 Gm Gel..Gram.) 15 gm PO Q15M PRN; Protocol PRN Reason: per Hypoglycemia Standing Ord. Dextrose (D10) 250 mls @ 750 mls/hr IV Q15M PRN; Protocol PRN Reason: per Hypoglycemia Standing Ord. Insulin Glargine (Insulin Glargine,Hum.Rec.Anlog 100 Unit/Ml 10 Ml Vial) 40 unit SUBCUT BEDTIME [facility] Last Admin: 07/07/24 21:17 Dose: 40 unit Documented By: TALITA Insulin Human Lispro (Insulin Lispro 100 Unit/Ml 3 Ml Vial) 0 unit SUBCUT QIDACHS [facility]; Protocol Last Admin: 07/08/24 11:49 Dose: 4 unit Documented By: DILLON Latanoprost (Latanoprost 0.005 % Ophth Franny 2.5 Ml Drops) 1 drop EYE-LEFT BEDTIME [facility] Last Admin: 07/07/24 21:22 Dose: Not Given Documented By: TALITA Non-Admin Reason: Patient Refused Metoprolol Succinate (Metoprolol Succinate Er 50 Mg Tab.Er.24h) 50 mg PO DAILY [facility]; Protocol Last Admin: 07/08/24 08:09 Dose: 50 mg Documented By: DILLON Omeprazole (Omeprazole 20 Mg Capsule.Dr) 20 mg PO DAILY@0630 [facility] Last Admin: 07/08/24 06:23 Dose: 20 mg Documented By: BANG Prednisone (Prednisone 10 Mg Tablet) 30 mg PO DAILY [facility] Timolol Maleate (Timolol Maleate 0.5 % Oph Franny 5 Ml Drbtl) 1 drop EYE-LEFT BID [facility] Last Admin: 07/08/24 08:10 Dose: Not Given Documented By: DILLON Non-Admin Reason: Patient Refused Venlafaxine HCl (Venlafaxine Hcl Er 75 Mg Cap.Er.24h) 75 mg PO DAILY [facility] Last Admin: 07/08/24 08:09 Dose: 75 mg Documented By: DILLON Venlafaxine HCl (Venlafaxine Hcl Er 150 Mg Cap.Er.24h) 150 mg PO BEDTIME [facility] Last Admin: 07/07/24 21:17 Dose: 150 mg Documented By: TALITA Zolpidem Tartrate (Zolpidem Tartrate 5 Mg Tablet) 2.5 mg PO BEDTIME [facility] Last Admin: 07/07/24 21:17 Dose: 2.5 mg Documented By: TALITA Labs 07/07/24 06:48 07/07/24 06:48 Labs: Laboratory Results - last 24 hr 07/07/24 07/07/24 07/08/24 15:32 20:34 07:27 POC Glucose 155 H 272 H 125 H Troponin I High Sens 07/08/24 07/08/24 10:16 11:02 POC Glucose 244 H Troponin I High Sens 4.3 Assessment and Plan (1) Ventricular tachycardia: Status: Acute (2) Acute on chronic hypoxic respiratory failure: Status: Acute (3) Acute hypokalemia: Status: Acute (4) COPD exacerbation: Status: Acute (5) Asthma with exacerbation: Status: Acute Plan 73M PMH significant for?severe persistent asthma/COPD overlap syndrome not on home O2, HTN, insulin-dependent type 2 diabetes, peripheral neuropathy, GERD, VIAD, and mood disorder presented with shortness of breath Monomorphic ventricular tachycardia Patient remained asymptomatic have up to 40 beats ventricular tachycardia seen on tele monitor EKG showed normal sinus rhythm, normal QTC, normal troponin Seen by cardiology they recommend to continue current dose of beta-blockers and obtain echocardiogram Stable electrolytes will keep potassium greater than 4, magnesium 2.2 will check tsh Will minimize use of updraft, on venlafaxine, no recent dosage change Acute hypoxic respiratory failure due to Severe persistent asthma/COPD with acute decompensation Shortness of breath improved, hypoxia resolved Wean Prednisone, change DuoNebs to t.i.d. Continue azithromycin day 2, started on Breo Recommend to avoid secondhand smoke Acute hypokalemia and hypomagnesemia ? Due to chlorthalidone, though has been on it chronically Denies alcohol or diarrhea Repleted and normalized,follow lytes Diabetes type 2 with hyperglycemia Elevated blood sugars likely due to steroids, continue Lantus and insulin sliding scale, diabetic diet. VIDA, class 1 obesity Weight loss, CPAP at night Hypertension Hold chlorthalidone for hypokalemia Continue metoprolol , stable BP Mood disorder Venlafaxine Peripheral neuropathy Gabapentin GERD PPI DVT prophylaxis with Lovenox Full Code Patient will require continued inpatient hospitalization for monitoring of electrolytes and COPD exacerbation Quality Stroke Does the patient have a stroke diagnosis?: No VTE Prior VTE?: No VTE Risk Level:: Medical - moderate - high VTE Device Contraindication: Treatment Not Indicated VTE Drug Contraindication: N/A - Med Ordered
[2024-07-08] MEDS: Potassium Chloride ER 20 MEQ TAB.ER.PRT PO (13:59)
[2024-07-08 15:57] LABS: Glucose, Whole Blood 261 mg/dL (60-115)
[2024-07-08] MEDS: clonazePAM 0.5 MG TABLET PO (16:44)
[2024-07-08] MEDS: Venlafaxine HCl ER 150 MG CAP.ER.24H PO (20:33)
[2024-07-08] MEDS: Insulin Glargine,Hum.rec.anlog 100 UNIT/ML 10 ML VIAL 40 UNIT SUBCUT (20:34)
[2024-07-08] MEDS: Zolpidem Tartrate 5 MG TABLET 2.5 MG PO (20:34)
[2024-07-08 20:41] LABS: Glucose, Whole Blood 185 mg/dL (60-115)
[2024-07-09] VITALS: BP 185/86; PULSE 68; RESP 16; TEMP 36.7; O2SAT 98
[2024-07-09 04:00] VITALS: BP 175/79; PULSE 65; RESP 16; TEMP 36.1; O2SAT 98
[2024-07-09] MEDS: Omeprazole 20 MG CAPSULE.DR PO (06:00)
--- NOTE | 2024-07-09 07:00 | CA_ITS ---
Transthoracic Echocardiogram Patient (Last, First, Middle): Solitario Alicea, Gender: Male Date of : 1950 Age: 73 Procedure Date: 07/09/2024 Procedure Type: Transthoracic Echocardiogram [place] [facility] [place] Height: 172.72 cm Weight: 97.52 kg BSA: 2.11 m2 Heart Rate: bpm BP: 175 / 79 mmHg Pattern Grader Cutter: Referring MD: Diogo Pinto MD Symptoms: vtach Study Quality: Good ECG Rhythm: Sinus Conclusions: - Normal left ventricular size, thickness, systolic function, and wall motion. The visually estimated ejection fraction is between 55-60%. - E/E prime ratio is between 8 and 15 consistent with indeterminate filling pressures. - Normal right ventricular cavity size and systolic function. - The left atrium is moderately dilated. - There is mild dilatation of the ascending aorta measuring 4.00 cm. Findings Left Ventricle Normal left ventricular size, thickness, systolic function, and wall motion. The visually estimated ejection fraction is between 55-60%. Abnormal diastolic function is noted. Spectral Doppler is indicative of an impaired relaxation filling pattern. E/E prime ratio is between 8 and 15 consistent with indeterminate filling pressures. Right Ventricle Normal right ventricular cavity size and systolic function. Atria The left atrium is moderately dilated. The right atrium is normal in size. Aortic Valve Normal aortic valve structure and function. There is no aortic valve stenosis. There is no aortic valve regurgitation. Mitral Valve The mitral valve appears normal. There is no mitral valve regurgitation. There is no mitral valve stenosis. Pulmonic Valve The pulmonic valve is normal. There is no pulmonic valve regurgitation. Tricuspid Valve Normal tricuspid valve structure. There is no tricuspid valve regurgitation. Mildly elevated right atrial pressure. There is no evidence of pulmonary hypertension. Great Vessels There is mild dilatation of the ascending aorta measuring 4.00 cm. The visualized portions of the pulmonary artery and branches are normal. Venous The inferior vena cava is dilated and collapses greater than 50% with inspiration. Pericardium/Pleural There is no evidence of pericardial effusion. Prior Study Comparison No prior study available for comparison. Measurements 2D Linear Measurements IVSd: 1.05 0.6-0.9/0.6-1.0 cm LVIDd: 4.97 3.9-5.3/4.2-5.9 cm LVIDd Index: 2.36 2.4-3.2/2.2-3.1 cm/m2 LVIDs: 3.33 2.0-3.6 cm LVPWd: 1.07 0.7-1.1 cm Ao Root: 3.60 2.1-3.5 cm LA Diam: 4.70 2.7-3.8/3.0-4.0 cm LAIDs Index: 2.23 1.5-2.3 cm/m2 LV Mass: 242.98 67-162/88-224 g LV Mass Index: 115.16 43-95/49-115 g/m2 LVOT Diam: 2.00 3.0+(-)1.3 cm Mitral Valve MV Pk E: 0.85 MV PK A: 1.09 MV Decel Time: 166.00 E/A: 0.80 E'Lateral: 7.72 E'Medial: 6.53 E/E' Med: 12.90 E/E' Lat: 10.90 PHT: 48.00 MVA PHT: 4.58 Decel Grand: 5.10 Aortic Valve AoV Pk Jacinto: 1.76 AoV Mn Jacinto: 1.22 AoV VTI: 0.40 AoV Pk Grad: 12.00 Aov Mn Grad: 7.00 RAYNA Cont.VTI: 2.40 LVOT LVOT Pk Jacinto: 1.37 LVOT Mn Jacinto: 0.91 LVOT VTI: 0.30 LVOT Pk Grad: 8.00 LVOT Mn Grad: 4.00 LVOT Diam: 2.00 LVOT Area: 3.14 Diastolic Function MV Pk E: 0.85 MV Pk A: 1.09 E/A: 0.80 E'Medial: 6.53 E/E' Med: 12.90 E' Laterial: 7.72 E/E' Lat: 10.90 Right Ventricle TAPSE (mm): 27.00 TVS' Jacinto: 16.00 Tricuspid Valve TR Pk Jacinto: 1.36 TR Pk Grad: 7.00 RA Press: 3.00 RVSP: 10.00 Great Vessels Aorta Ao Root-2D: 3.60 2.0-3.7 cm Ao Asc: 4.00 2.1-3.4 cm Pulmonary Valve PV Pk Jacinto: 1.50 Peak PV Grad: 9.00 Updated in Other Vendor System with Status of Final Kaden More MD electronically signed on 07/09/2024 12:42:32 PM with status of Final
[2024-07-09 07:03] LABS: Thyroid Stimulating Hormone 1.63 uIU/mL (0.32-4.0)
[2024-07-09 07:52] LABS: Glucose, Whole Blood 71 mg/dL (60-115)
[2024-07-09] MEDS: Fluticasone/Vilanterol 100/25 BLST.W.DEV 1 PUFF INHALE (07:56)
[2024-07-09 07:57] VITALS: PULSE 65; RESP 16; O2SAT 97
[2024-07-09] MEDS: Albuterol/Iprat 2.5/0.5MG 3 ML AMPUL.NEB INHALE (07:57)
[2024-07-09 08:00] VITALS: BP 168/83; PULSE 61; RESP 20; TEMP 36.4; O2SAT 93
[2024-07-09] MEDS: predniSONE 10 MG TABLET 30 MG PO (08:22)
[2024-07-09] MEDS: Gabapentin 300 MG CAPSULE PO (08:22)
[2024-07-09] MEDS: Venlafaxine HCl ER 75 MG CAP.ER.24H PO (08:22)
[2024-07-09] MEDS: Azithromycin 500 MG TABLET PO (08:23)
[2024-07-09] MEDS: Metoprolol Succinate ER 50 MG TAB.ER.24H PO (08:23)
[2024-07-09] MEDS: Enoxaparin Sodium 40 MG/0.4 ML SYRINGE SUBCUT (08:31)
[2024-07-09 09:54] LABS: Anion Gap 14 (12-20); Carbon Dioxide 29 mmol/L (22-29); Chloride 103 mmol/L (96-108); Magnesium 1.9 mg/dL (1.6-2.6); Potassium 3.6 mmol/L (3.3-5.1); Sodium 142 mmol/L (135-145)
[2024-07-09 11:29] VITALS: BP 164/74; PULSE 79; RESP 20; TEMP 36.2; O2SAT 93
[2024-07-09 11:45] LABS: Glucose, Whole Blood 183 mg/dL (60-115)
--- NOTE | 2024-07-09 11:52 | PM.PNCARD ---
Subjective Subjective Date of Service: 07/09/24 Interval history: Seen and examined at bedside. Denying any palpitations. Still coughing. Potassium magnesium improving. Physical Exam Vital Signs: Last Vital Signs Temp 97.2 F 07/09/24 11:29 Pulse 79 07/09/24 11:29 Resp 20 07/09/24 11:29 BP 164/74 H 07/09/24 11:29 Pulse Ox 93 07/09/24 11:29 O2 Del Method Room Air 07/09/24 11:29 O2 Flow Rate 98 07/09/24 00:00 Oxygen Flow Rate 2 07/06/24 16:30 BMI result Body Mass Index 32.7 GENERAL APPEARANCE: in no acute distress, pleasant. NECK: no carotid bruit, no jugular venous distention. SKIN: no suspicious lesions, warm and dry. HEART: no murmurs, regular rate and rhythm. LUNGS: Mild end expiratory wheezes. ABDOMEN: soft, nontender. EXTREMITIES: no edema. PERIPHERAL PULSES: equal. NEUROLOGIC: No gross deficits, AAO X 3 Objective Labs and Meds 07/07/24 06:48 07/09/24 08:39 Lab results: Laboratory Results - last 24 hr 07/08/24 07/08/24 07/09/24 15:51 20:37 06:06 Sodium Potassium Chloride Carbon Dioxide Anion Gap POC Glucose 261 H 185 H Magnesium TSH 1.63 07/09/24 07/09/24 07/09/24 07:48 08:39 11:42 Sodium 142 Potassium 3.6 Chloride 103 Carbon Dioxide 29 Anion Gap 14 POC Glucose 71 183 H Magnesium 1.9 TSH Progress Note: A&P Assessment and plan (1) Ventricular tachycardia: Status: Acute Plan [age] year gentleman presenting with COPD exacerbation who had 40 beats run of ventricular tachycardia. He has no palpitations currently. Telemetry is not showing any arrhythmia anymore. He was noticed to be hypokalemic and hypomagnesemic. Likely due to chlorthalidone use. This should be discontinued at discharge. On Toprol-XL 50 mg. I think he can be increased to 50 mg twice a day. If blood pressure is still elevated then add amlodipine 2.5 mg daily. Pseudoephedrine should be discontinued at discharge and he should be instructed not to use that (the stroke is on his med list). Thank you for allowing me to participate in the care of your patient. Please feel free to contact me if you have any questions. Time Spent With Patient Time: Total time managing care of this patient today ____ minutes. Progress Note: Quality Stroke Does the patient have a stroke diagnosis?: No Procedures Date of Service Date of Service: 07/09/24
[2024-07-09] MEDS: Insulin Lispro 100 UNIT/ML 3 ML VIAL SUBCUT (12:03)
[2024-07-09] MEDS: Magnesium Oxide 400 MG TABLET 800 MG PO (12:08)
[2024-07-09] MEDS: Potassium Chloride ER 20 MEQ TAB.ER.PRT 40 MEQ PO (12:08)
--- NOTE | 2024-07-09 13:47 | PM.DS ---
DS: Providers Provider Date of Service: 07/09/24 Date of admission: 07/06/24 22:41 Date of discharge: 07/09/24 Primary care physician: Hector Cherry MD Consults: 07/08/24 10:07 Consult to Cardiology Routine Consulting Provider: [facility] Reason for consultation: vtach Has provider been notified: No DS: Diagnosis Discharge Diagnosis (1) Ventricular tachycardia: Status: Acute DS: Summary Hospital Course Hospital Course: History of presenting illness Date of Service: 07/06/24 Chief Complaint: sob, weakness 73M PMH significant for?severe persistent asthma/COPD overlap syndrome not on home O2, HTN, insulin-dependent type 2 diabetes, peripheral neuropathy, GERD, VIDA, and mood disorder presented with shortness of breath. Patient was discharged [place] [facility] [place] 06/26/2024 after hospitalization for COPD exacerbation was discharged on prednisone and azithromycin. States he never really felt 100% better. Complaining of shortness breath worse on exertion denies orthopnea or weight gain. Reporting new cough with production. Also noting weakness and mild intention tremor. Denies fever chills. In ED chest x-ray unremarkable, not hypoxic, noted to have potassium of 2.6. Denies diarrhea or alcohol use, is on chlorthalidone chronically. at time of my seeing patient he is reporting sob much improved. Hospital course: 73M PMH significant for?severe persistent asthma/COPD overlap syndrome not on home O2, HTN, insulin-dependent type 2 diabetes, peripheral neuropathy, GERD, VIDA, and mood disorder presented with shortness of breath And diagnosed to have Acute hypoxic respiratory failure due to Severe persistent asthma/COPD with acute decompensation, treated with prednisone , updraft treatment and azithromycin with good response, patient started on Breo, shortness of breath resolved, recommend to avoid secondhand smoke, continue Breo and take 5 more days of by mouth prednisone, patient on admission was also noted to have acute hypokalemia and mild hypo magnesemia likely due to chlorthalidone, patient denied alcohol use, had no GI loss , electrolytes were repleted, hypokalemia hypo magnesemia resolved, patient is recommended to discontinue chlorthalidone. Norvasc 5 mg daily has been added for better blood pressure control. During course of hospitalization patient noted to have up to 40 beats of Monomorphic ventricular tachycardia, patient remained asymptomatic, EKG showed normal sinus rhythm, normal QTC and had normal troponin evaluated by cage maker machine they recommend to continue beta-blockers and echocardiogram was obtained that was essentially unremarkable, likely arrhythmia due to electrolyte abnormality recommend to discontinue chlorthalidone and pseudoephedrine, will repeat lytes in 1 week. Diabetes type 2 recommend to continue diabetic diet and insulin as before, noted to have class 1 obesity recommended low-calorie diet In regard to hypertension recommend to continue metoprolol 50 mg daily and added Norvasc 5 mg by mouth daily for better blood pressure control Mood disorder continue Venlafaxine Peripheral neuropathy continue Gabapentin Time Attestation Discharge Coordination Time (in mins): 36 Quality: Safe Use of Opioids Does Pt have an Active Cancer Diagnosis on the Problem List?: No Quality: Stroke Does the patient have a stroke diagnosis?: No Physical Exam Vital Signs: Vital Signs: Last Vital Signs Temp 97.2 F 07/09/24 11:29 Pulse 79 07/09/24 11:29 Resp 20 07/09/24 11:29 BP 164/74 H 07/09/24 11:29 Pulse Ox 93 07/09/24 11:29 O2 Del Method Room Air 07/09/24 11:29 O2 Flow Rate 98 07/09/24 00:00 Oxygen Flow Rate 2 07/06/24 16:30 BMI result Body Mass Index 32.7 Const: Other: General awake alert x3, in no acute distress. Anicteric sclera Neck no JVD. CVS regular rate rhythm, Respiratory lungs clear to auscultation, no wheeze Gastrointestinal abdomen soft, non tender, bowel sounds audible, no guarding , no rigidity. Extremities no edema. Neuro non focal Skin no rash Psych appropriate affect DS: Data Data Completed and Pending Completed studies during hospitalization [Text1]: Procedures Assistance with Respiratory Ventilation, Less than 24 Consecutive Hours, Continuous Positive Airway Pressure (06/24/24) Labs on day of discharge: Laboratory Results - last 24 hr 07/08/24 07/08/24 07/09/24 15:51 20:37 06:06 Sodium Potassium Chloride Carbon Dioxide Anion Gap POC Glucose 261 H 185 H Magnesium TSH 1.63 07/09/24 07/09/24 07/09/24 07:48 08:39 11:42 Sodium 142 Potassium 3.6 Chloride 103 Carbon Dioxide 29 Anion Gap 14 POC Glucose 71 183 H Magnesium 1.9 TSH Discharge Plan Discharge Anticipated Discharge Date/Time: 07/09/24 13:44 Patient Disposition: Home, Self-Care Discharge Diagnosis: Acute hypokalemia Acute COPD exacerbation Ventricular tachycardia Referrals: Hector Cherry MD [Primary Care Provider] - 1 Week Discharge Medications: New fluticasone furoate-vilanterol [Breo Ellipta] 100-25 mcg/dose Blister With Device 1 inh inhalation RDAILY Qty: 60 0RF prednisone 10 mg tablet 10 mg PO DAILY Qty: 5 0RF amlodipine [Norvasc] 5 mg tablet 5 mg PO DAILY Qty: 30 0RF Continued (DME) insulin syringe,safety needle 0.3 mL 29 x 1/2 syringe See Rx Instructions .Route Qty: 100 0RF Rx Instructions: As directed (DME) Comfort EZ Pen [place] 32 gauge x 5/16 needle See Rx Instructions .Route Qty: 100 0RF Rx Instructions: Use 3 times daily with insulin metoprolol succinate 50 mg tablet extended release 24 hr 50 mg PO DAILY Qty: 90 1RF pantoprazole 20 mg tablet,delayed release (DR/EC) 20 mg PO DAILY@0630 Qty: 90 1RF clonazepam 0.5 mg tablet 0.5 mg PO DAILY@1700 Qty: 30 0RF Rx Instructions: administer 30 minutes before bedtime venlafaxine 150 mg capsule,extended release 24hr 150 mg PO BEDTIME Qty: 30 0RF venlafaxine 75 mg capsule,extended release 24hr 75 mg PO DAILY albuterol sulfate 90 mcg/actuation HFA aerosol inhaler 2 puff inhalation Q4H PRN (Reason: for wheezing) insulin glargine [Lantus Solostar U-100 Insulin] 100 unit/mL (3 mL) insulin pen 40 unit subcut BEDTIME zolpidem 5 mg tablet 2.5 mg PO BEDTIME timolol maleate 0.5 % drops 1 drp ophthalmic-Left BID insulin lispro [Humalog KwikPen Insulin] 100 unit/mL insulin pen 20 unit subcut TIDAC albuterol sulfate 2.5 mg /3 mL (0.083 %) solution for nebulization 2.5 mg inhalation Q4H PRN (Reason: shortness of breath or wheezing) Qty: 90 0RF gabapentin 300 mg capsule 300 mg PO BID Qty: 180 1RF latanoprost 0.005 % drops 1 drp ophthalmic-Left BEDTIME brimonidine 0.2 % drops 1 drp ophthalmic-Left BID Discontinued chlorthalidone 25 mg tablet 25 mg PO DAILY Qty: 90 1RF pseudoephedrine HCl 30 mg tablet 30 mg PO Q4-6H PRN (Reason: nasal congestion) 90 Days Qty: 90 3RF Rx Instructions: DNExceed 4 doses/24h Discharge Orders: Discharge Order (Routine); Ordered 07/09/24 Ordered By: Diogo Pinto Diet: Diabetic diet Activity on Discharge: As tolerated Stand Alone Forms: Patient Portal Discharge page Print Language: Togolese Other Ambulatory Orders: Basic Metabolic Panel Fasting (Routine) Timeframe: [id number] Facility: [facility] - Location: Laboratory Ordered By: Diogo Pinto Care Plan Goals: Shortness of breath improved take Breo 1 puff b.i.d. and prednisone 1 tablet daily for 5 days Discontinue use of chlorthalidone and pseudoephedrine Take Norvasc 5 mg daily for better blood pressure control Health Concerns: Diabetes mellitus follow diabetic diet Plan of Treatment: Outpatient follow-up with primary care physician Assessment: As above
--- NOTE | 2024-07-09 13:49 | MHC.CM.PN ---
Patient has been medically cleared for dc to home today, self care. Last IMM was addressed on 07/07/2024.
== END 2024-07-09 14:57 | disposition home or self-care (01) | DRG 191 ==
LOC: HO.ED 20:45 → HO.EDOVER 22:45 → HO.IMC 07-07 01:58
PROVIDERS: Nurse Practitioner Family; Admitting Provider Internal Medicine; Emergency Provider Internal Medicine; PCP Internal Medicine; Visit Provider Hospitalist
DX: J44.1 Chronic obstructive pulmonary disease with (acute) exacerbation (principal); I47.29 Other ventricular tachycardia; J45.51 Severe persistent asthma with (acute) exacerbation; E87.6 Hypokalemia; E83.42 Hypomagnesemia; E11.65 Type 2 diabetes mellitus with hyperglycemia; F39 Unspecified mood [affective] disorder; K21.9 Gastro-esophageal reflux disease without esophagitis; G47.33 Obstructive sleep apnea (adult) (pediatric); E11.42 Type 2 diabetes mellitus with diabetic polyneuropathy; E66.8 Other obesity; Z68.32 Body mass index [BMI] 32.0-32.9, adult; Z20.822 Contact with and (suspected) exposure to COVID-19; Z23 Encounter for immunization; Z87.891 Personal history of nicotine dependence; Z79.4 Long term (current) use of insulin; Z79.899 Other long term (current) drug therapy
CPT/HCPCS: 0241U; 36415; 71046; 80048; 80051; 80053; 82803; 82947; 83735; 83880; 84443; 84484; 85025; 85027; 85610; 90656; 93005; 93306; 94640; 99285; J1650; J3475; J3480; Q9957

== ENCOUNTER 2024-07-06 22:41 | Outpatient (BNV) | payer MEDICARE, SELFPAY | END 2024-07-09 07:00 | PROVIDERS: Admitting Provider Internal Medicine; Emergency Provider Internal Medicine; PCP Internal Medicine; Visit Provider Internal Medicine Cardiovascular Disease | DX: I51.89 Other ill-defined heart diseases (principal) | CPT/HCPCS: 93306 ==

== ENCOUNTER → 2024-07-06 22:41 | Outpatient (BNV) | payer MEDICARE, SELFPAY | PROVIDERS: Admitting Provider Internal Medicine; Emergency Provider Internal Medicine; PCP Internal Medicine; Visit Provider Internal Medicine | DX: I47.20 Ventricular tachycardia, unspecified (principal); J96.21 Acute and chronic respiratory failure with hypoxia; E87.6 Hypokalemia; J44.1 Chronic obstructive pulmonary disease with (acute) exacerbation; J45.41 Moderate persistent asthma with (acute) exacerbation | CPT/HCPCS: 99223; 99232; 99239 ==

== ENCOUNTER → 2024-07-06 22:41 | Outpatient (BNV) | payer MEDICARE, SELFPAY | PROVIDERS: Admitting Provider Internal Medicine; Emergency Provider Internal Medicine; PCP Internal Medicine; Visit Provider Internal Medicine | DX: I47.20 Ventricular tachycardia, unspecified (principal) | CPT/HCPCS: 99223; 99233 ==

== ENCOUNTER 2024-07-16 13:15 | Outpatient (AMB) | payer MEDICARE, SELFPAY ==
--- NOTE | 2024-07-16 13:16 | A.OFFPC_ITS ---
Vital Signs 07/16/24 13:20 Height 5 ft 8 in Weight 235 lb 8 oz BMI 35.8 BP 130/66 Blood Pressure Location Lt brachial Position Sitting Pulse 65 Pulse Source Pulse Oximeter Pulse Oximetry (%) 92 Oxygen Delivery Method Room Air Intake Visit Reasons: TCM [place] [facility] Intake Note: Patient is here for hospital discharge follow up and TCM. Patient was discharged from [facility] [place] on 07/09/24. Fly Raiser Lockstitch Required: No Flight Deck Officer: Not Required per policy Accompanied by: Self / Same As Patient Allergies hydrocortisone [HYDROCORTISONE] Allergy (Severe, Verified 07/16/24 14:03) SWELLING NSAIDS (Non-Steroidal Anti-Inflamma [NSAIDS (NON-STEROIDAL ANTI-INFLAMMA] Allergy (Severe, Verified 07/16/24 14:03) BLEEDING aspirin Allergy (Unknown, Verified 07/16/24 14:03) bleeding doxycycline Adverse Reaction (Severe, Verified 07/16/24 14:03) in-effective Medication List - Last Reconciled 07/16/24 by Hector Cherry MD albuterol sulfate 2.5 mg (3 mL) inhalation Q4H PRN albuterol sulfate 90 mcg/actuation 2 puffs inhalation Q4H PRN amlodipine (Norvasc) 5 mg PO DAILY brimonidine 0.2% 1 drp ophthalmic-Left BID clonazepam 0.5 mg PO DAILY@1700 fluticasone furoate-vilanterol 100-25 mcg/dose (Breo Ellipta) 1 inh inhalation RDAILY gabapentin 300 mg PO BID insulin glargine (Lantus Solostar U-100 Insulin) 40 units subcut BEDTIME insulin lispro (Humalog KwikPen (U-100) Insulin) 20 units subcut TIDAC insulin syringe,safety needle As directed latanoprost 0.005% 1 drp ophthalmic-Left BEDTIME metoprolol succinate ER 50 mg PO DAILY pantoprazole 20 mg PO DAILY@0630 pen needle, diabetic (Comfort EZ Pen [place]) Use 3 times daily with insulin timolol maleate 0.5% 1 drp ophthalmic-Left BID venlafaxine ER 75 mg PO DAILY venlafaxine ER 150 mg PO BEDTIME zolpidem 2.5 mg PO BEDTIME Tobacco use date assessed: 07/16/24 Fall risk assessment: No Falls in past year Last assessed Fall Risk: 07/16/24 Dental Screening Dental Screen Date: 01/11/24 HPI TCM HDF [facility] 07/09 SOB HPI Details 73-year-old male presents to the office after a recent discharge from the hospital. Date of admission: 07/06/2024. Date of discharge 07/09/2024. Discharge diagnosis COPD exacerbation. Patient was admitted to the hospital with shortness of breath and wheezing. Clinically and via lab work, it was determined that he was having an exacerbation of chronic obstructive pulmonary disease. During the hospitalization, patient had a 20 beat run of wide complex tachycardia. He was found to have low potassium. Chlorthalidone and pseudoephedrine was disc ontinued. Patient feels better. His breathing has improved. Medication list was reviewed with him. He is compliant with all medications. Chronic symptoms of depression and poor pain control continues. [facility] TCM Information Date of Discharge 07/09/24 Discharged From [facility] Interactive Contact Date (Reference documentation from this date) 07/10/24 [facility] Medical History Class 2 severe obesity with body mass index (BMI) of 35 to 39.9 with serious comorbidity Bilateral primary osteoarthritis of knee Osteoarthritis of right knee Diabetes mellitus type 2, uncontrolled COPD exacerbation Arthritis of both knees Chronic pain syndrome Allergic rhinitis VIDA on CPAP COPD (chronic obstructive pulmonary disease) Lumbar radiculopathy Allergic rhinitis Asthma Benign prostatic hyperplasia Back pain Sleep apnea HTN (hypertension) Lumbar spondylosis Tendon tear Depression Arthritis Asthma Crohn disease Surgical History H/O colonoscopy Family History Father No problems noted. Mother No problems noted. Social History Household Members: Spouse Housing: House Do you presently have visiting nurse or other home services: No Alcohol intake: never Comment: pain 3-4 left knee and buttock Patient Tobacco Use Status: Former Tobacco user e-Cigarette/Vaping Use: Never Used Second Hand Smoke Exposure: No Advance Directives Date on File: 07/07/24 service: No Current occupational status: retired Cognitive needs: Yes (cane) Hearing needs: No Vision needs: Yes (Glasses) Questionnaire Thrive Questionnaire Date Thrive assessed: 07/07/24 ESTELLA-7 AMB Questionnaire ESTELLA-7 Date ESTELLA - 7 assessed: 04/10/24 Source: Developed by Drs. Santiago Schwartz, Ana María Deleon, Osbaldo Alexander and colleagues, with an educational jose de jesus from [employer]. Physical exam (Primary Care) Vital Signs: Last Vital Signs Pulse 65 07/16/24 13:20 BP 130/66 07/16/24 13:20 Pulse Ox 92 07/16/24 13:20 Oxygen Delivery Method Room Air 07/16/24 13:20 BMI result Body Mass Index 35.8 Tobacco/Smoking Status: Tobacco use Status Tobacco use date assessed 07/16/24 07/16/24 13:25 Patient Tobacco Use Status Former Tobacco user 07/16/24 13:17 e-Cigarette/Vaping Use Never Used 07/16/24 13:17 Thrive Assessment: Date of Thrive Assessment Date Thrive assessed 07/07/24 07/16/24 13:17 Const General: cooperative and healthy appearing Nutritional Appearance: well nourished Orientation/consciousness: patient oriented x3 Limitations: no limitations HENMT Head: Yes normal to inspection Eyes General: appearance normal, both eyes and all related structures Neck Neck: Yes normal visual inspection Chest Chest palpation & inspection: normal palpation of entire chest wall Resp Effort & Inspection: normal respiratory effort Neuro General: patient oriented x3 Assessment and Plan Assessment & Plan (1) COPD exacerbation: Comment: Code(s): J44.1 - Chronic obstructive pulmonary disease with (acute) exacerbation Plan: Condition is stable. Medications were reviewed. (2) Ventricular tachycardia: Code(s): I47.20 - Ventricular tachycardia, unspecified Plan: Chlorthalidone and pseudoephedrine have been discontinued. (3) Acute hypokalemia: Code(s): E87.6 - Hypokalemia Plan: Repeat blood work in 1 week. (4) ESTELLA (generalized anxiety disorder): Code(s): F41.1 - Generalized anxiety disorder Plan: Patient sees a psychiatrist and mental health worker tomorrow. Coding Level of Care Code TCM High MDM <= 14 days Complex EM visit Add On G2211 Diagnoses COPD exacerbation J44.1 Ventricular tachycardia I47.20 Acute hypokalemia E87.6 ESTELLA (generalized anxiety disorder) F41.1
[2024-07-16 13:20] VITALS: BP 130/66; PULSE 65; O2SAT 92; BMI 35.8
== END 2024-07-16 13:47 | disposition home or self-care (01) ==
PROVIDERS: PCP Internal Medicine; Visit Provider Internal Medicine
DX: J44.1 Chronic obstructive pulmonary disease with (acute) exacerbation (principal); I47.20 Ventricular tachycardia, unspecified; E87.6 Hypokalemia; F41.1 Generalized anxiety disorder

== ENCOUNTER → 2024-07-16 13:15 | Outpatient (BNVA) | payer MEDICARE, SELFPAY | PROVIDERS: PCP Internal Medicine; Visit Provider Internal Medicine | DX: J44.1 Chronic obstructive pulmonary disease with (acute) exacerbation (principal) | CPT/HCPCS: 99495 ==

== ENCOUNTER 2024-07-17 14:20 | Outpatient (AMB) | payer MEDICARE, SELFPAY ==
--- NOTE | 2024-07-17 14:38 | MHC.OFFVISPS ---
Intake Intake Visit Reasons: f/u consultation Agricultural Mechanic Required: No Allergies hydrocortisone [HYDROCORTISONE] Allergy (Severe, Verified 07/16/24 14:03) SWELLING NSAIDS (Non-Steroidal Anti-Inflamma [NSAIDS (NON-STEROIDAL ANTI-INFLAMMA] Allergy (Severe, Verified 07/16/24 14:03) BLEEDING aspirin Allergy (Unknown, Verified 07/16/24 14:03) bleeding doxycycline Adverse Reaction (Severe, Verified 07/16/24 14:03) in-effective Medication List - Last Reconciled 07/17/24 by Gayathri Castro APRN albuterol sulfate 2.5 mg (3 mL) inhalation Q4H PRN albuterol sulfate 90 mcg/actuation 2 puffs inhalation Q4H PRN amlodipine (Norvasc) 5 mg PO DAILY brimonidine 0.2% 1 drp ophthalmic-Left BID clonazepam 0.5 mg PO DAILY@1700 fluticasone furoate-vilanterol 100-25 mcg/dose (Breo Ellipta) 1 inh inhalation RDAILY gabapentin 300 mg PO BID insulin glargine (Lantus Solostar U-100 Insulin) 40 units subcut BEDTIME insulin lispro (Humalog KwikPen (U-100) Insulin) 20 units subcut TIDAC insulin syringe,safety needle As directed latanoprost 0.005% 1 drp ophthalmic-Left BEDTIME metoprolol succinate ER 50 mg PO DAILY pantoprazole 20 mg PO DAILY@0630 pen needle, diabetic (Comfort EZ Pen [place]) Use 3 times daily with insulin timolol maleate 0.5% 1 drp ophthalmic-Left BID venlafaxine ER 75 mg PO DAILY venlafaxine ER 150 mg PO BEDTIME zolpidem 2.5 mg PO BEDTIME HPI- Psychiatric Chief Complaint: f/u consultation HPI Narrative: pt recently inpatient for COPD exacerbation and low potassium. pt reports continued depression and anxiety. He is not sleeping at night; he is anxious every day. PHQ9= 20 ESTELLA& = 20. He denies sedation or dizziness. Past Psychiatric History: outp tx for years with venlafaxine and clonazepam Subjective Subjective Subjective Medication Compliance: Yes Side effects from medications: No Review of Systems Medical Review of Systems: unchanged Mental Status Exam Mental Status Exam Patient Appearance: Disheveled Patient Orientation: Person, Place, Time and Situation Level of Consciousness: Awake Patient Behavior: Appropriate Mood Description: Anxious Affect Description: Anxious Patient Cognition Impaired: No Ability to Follow Directions: Good Speech Pattern: Clear and Impoverished Memory Description: Intact Hallucinations: None Delusions: Not Present Thought Process: Intact and Goal Oriented Thought Content: positive for Intact and positive for Goal Oriented Judgement: Fair Assessment and Plan Assessment & Plan (1) ESTELLA (generalized anxiety disorder): Status: Acute Code(s): F41.1 - Generalized anxiety disorder (2) Major depressive disorder, recurrent severe without psychotic features: Status: Acute Code(s): F33.2 - Major depressive disorder, recurrent severe without psychotic features Plan add clonazepam 0.25 mg in am and continue clonazpema 0.5mg at 5 pm daily increas ezolpidem to 5mg at bedtime consider reducing effexor in future and adding alternative Medications: New zolpidem 5 mg PO BEDTIME 30 tabs 2RF Changed From clonazepam administer 30 minutes before bedtime 0.5 mg PO DAILY@1700 30 tabs 0RF To clonazepam 0.5 mg orally Take 1/2 tablet in morning and 1 tab at 5pm 45 tabs 2RF Counseling and coordination of Care Pt. Self Management counseling: Maintenance-social rhythm, Mod caffeine/ETOH intake and Sleep hygiene Medication management counseling: Effectiveness, Side effects, Dosing range, Duration, Drug interaction and Adherence Diagnosis and Prognosis Counseling: Accuracy of diagnosis, Prognosis over time and Adequacy of current interventions Details: I spent 30 minutes reviewing the record, seeing the patient and documenting in the medical record. Counseling provided to the patient/caregiver as outlined below. Addressed patient/caregiver concerns regarding current medication regime including effective adherence. Addressed patient/caregiver concerns regarding diagnosis and prognosis including accuracy of diagnosis, prognosis over time, impact of diagnosis. Addressed patient/caregiver concerns regarding impact of recent stressors. [facility] Medical History Class 2 severe obesity with body mass index (BMI) of 35 to 39.9 with serious comorbidity Bilateral primary osteoarthritis of knee Osteoarthritis of right knee Diabetes mellitus type 2, uncontrolled COPD exacerbation Arthritis of both knees Chronic pain syndrome Allergic rhinitis VIDA on CPAP COPD (chronic obstructive pulmonary disease) Lumbar radiculopathy Allergic rhinitis Asthma Benign prostatic hyperplasia Back pain Sleep apnea HTN (hypertension) Lumbar spondylosis Tendon tear Depression Arthritis Asthma Crohn disease Surgical History H/O colonoscopy Family History Father No problems noted. Mother No problems noted. 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 raised by brother and sister Coding Level of Care Code Est Pt Level 4 (88124) Diagnoses ESTELLA (generalized anxiety disorder) F41.1 Major depressive disorder, recurrent severe without psychotic features F33.2
== END 2024-07-17 14:51 | disposition home or self-care (01) ==
LOC: HO.HOP 14:20
PROVIDERS: PCP Internal Medicine; Visit Provider Clinical Nurse Specialist Psychiatric/Mental Health
DX: F41.1 Generalized anxiety disorder (principal); F33.2 Major depressive disorder, recurrent severe without psychotic features
CPT/HCPCS: 99214

== ENCOUNTER → 2024-07-17 14:20 | Outpatient (BNVA) | payer MEDICARE, SELFPAY | PROVIDERS: PCP Internal Medicine; Visit Provider Clinical Nurse Specialist Psychiatric/Mental Health | DX: F41.1 Generalized anxiety disorder (principal); F33.2 Major depressive disorder, recurrent severe without psychotic features | CPT/HCPCS: 99212 ==

== ENCOUNTER 2024-07-19 13:10 | Outpatient (REF) | payer MEDICARE, SELFPAY ==
[2024-07-19 14:21] LABS: Anion Gap 10 (12-20); Blood Urea Nitrogen 18 mg/dL (9-16); Calcium 9.3 mg/dL (8.4-10.2); Carbon Dioxide 31 mmol/L (22-29); Chloride 105 mmol/L (96-108); Estimated Glomerular Filt Rate > 60; Glucose Fasting 147 mg/dL (60-99); Potassium 3.7 mmol/L (3.3-5.1); Sodium 142 mmol/L (135-145)
== END 2024-07-19 13:11 | disposition home or self-care (01) ==
LOC: HO.LAB 13:10
PROVIDERS: PCP Internal Medicine; Visit Provider Hospitalist
DX: E87.6 Hypokalemia (principal)
CPT/HCPCS: 36415; 80048

== ENCOUNTER 2024-08-08 14:58 | Outpatient (AMB) | payer MEDICARE, SELFPAY ==
[2024-08-08 15:35] VITALS: BP 130/70; PULSE 75; O2SAT 92; BMI 37.4
--- NOTE | 2024-08-08 15:35 | A.OFFVIS_ITS ---
Vital Signs 08/08/24 15:35 Height 5 ft 8 in Weight 245 lb 13.047 oz BMI 37.4 BP 130/70 Blood Pressure Location Lt brachial Position Sitting Pulse 75 Pulse Source Pulse Oximeter Pulse Oximetry (%) 92 Oxygen Delivery Method Room Air Intake Visit Reasons: COPD Intake Note: pt is here for follow up and is having a difficult time due to a fall yesterday, which is now prohibiting from taking a deep breath and a lot of pain with cough. He was in for 4 days with copd and states he is wheezing today. Orthotics Prosthetics Assistant Required: No Allergies hydrocortisone [HYDROCORTISONE] Allergy (Severe, Verified 08/08/24 16:19) SWELLING NSAIDS (Non-Steroidal Anti-Inflamma [NSAIDS (NON-STEROIDAL ANTI-INFLAMMA] Allergy (Severe, Verified 08/08/24 16:19) BLEEDING aspirin Allergy (Unknown, Verified 08/08/24 16:19) bleeding doxycycline Adverse Reaction (Severe, Verified 08/08/24 16:19) in-effective Medication List - Last Reconciled 08/08/24 by Pepe Rojas MD albuterol sulfate 2.5 mg (3 mL) inhalation Q4H PRN albuterol sulfate 90 mcg/actuation 2 puffs inhalation Q4H PRN amlodipine (Norvasc) 5 mg PO DAILY brimonidine 0.2% 1 drp ophthalmic-Left BID clonazepam 0.5 mg orally Take 1/2 tablet in morning and 1 tab at 5pm fluticasone furoate-vilanterol 100-25 mcg/dose (Breo Ellipta) 1 inh inhalation RDAILY gabapentin 300 mg PO BID insulin glargine (Lantus Solostar U-100 Insulin) 40 units subcut BEDTIME insulin lispro (Humalog KwikPen (U-100) Insulin) 20 units subcut TIDAC insulin syringe,safety needle As directed latanoprost 0.005% 1 drp ophthalmic-Left BEDTIME metoprolol succinate ER 50 mg PO DAILY pantoprazole 20 mg PO DAILY@0630 pen needle, diabetic (Comfort EZ Pen [place]) Use 3 times daily with insulin timolol maleate 0.5% 1 drp ophthalmic-Left BID venlafaxine ER 75 mg PO DAILY venlafaxine ER 150 mg PO BEDTIME zolpidem 5 mg PO BEDTIME Do you need a note to return to daycare/school/sports/work: No HPI HPI COPD: Details: This 74 years old gentleman with longstanding history of chronic obstructive pulmonary disease, and obstructive sleep apnea, in addition to chronic anxiety/depression and chronic back pain. He is here today for his 6 months follow-up. However he was admitted to [facility] last week for a few days and treated for hypokalemia. Prior to that in May of this year he was admitted with acute exacerbation of COPD. Today he is complaining of lot of pain in the left mid chest after a fall at home yesterday. He is saying that he is not able to take deep breaths and this in turn is making him short of breath. He is very uncomfortable here in the office. [facility] Medical History Chest pain in adult Class 2 severe obesity with body mass index (BMI) of 35 to 39.9 with serious comorbidity Bilateral primary osteoarthritis of knee Osteoarthritis of right knee Diabetes mellitus type 2, uncontrolled COPD exacerbation Arthritis of both knees Chronic pain syndrome Allergic rhinitis VIDA on CPAP COPD (chronic obstructive pulmonary disease) Lumbar radiculopathy Allergic rhinitis Asthma Benign prostatic hyperplasia Back pain Sleep apnea HTN (hypertension) Lumbar spondylosis Tendon tear Depression Arthritis Asthma Crohn disease Surgical History H/O colonoscopy Family History Father No problems noted. Mother No problems noted. Social History Household Members: Spouse Housing: House Do you presently have visiting nurse or other home services: No Alcohol intake: never Comment: pain 3-4 left knee and buttock Patient Tobacco Use Status: Former Tobacco user e-Cigarette/Vaping Use: Never Used Second Hand Smoke Exposure: No Advance Directives Date on File: 07/07/24 service: No Current occupational status: retired Cognitive needs: Yes (cane) Hearing needs: No Vision needs: Yes (Glasses) Review of Systems Const All systems reviewed & are unremarkable except as noted in HPI and below Eyes Reports no additional complaints ENT Reports nasal congestion and Reports nasal discharge (Postnasal discharge off and on) Card Denies chest pain, Denies irregular heart rhythm and Denies dyspnea on exertion Resp Reports as per HPI, Denies dyspnea on exertion and Reports other (Complains of lot of pain over the left mid chest due to fall yesterday) GI Reports heartburn (Symptoms of GERD or controlled) Reports no additional complaints Musc Reports back pain, Reports myalgias and Reports arthralgias Skin/Breast Reports system reviewed and no additional complaints, except as documented Neuro Reports no additional complaints Psych Reports no additional complaints Physical Exam Vital Signs: Last Vital Signs Pulse 75 08/08/24 15:35 BP 130/70 08/08/24 15:35 Pulse Ox 92 08/08/24 15:35 Oxygen Delivery Method Room Air 08/08/24 15:35 BMI result Body Mass Index 37.4 Const Other: HE LOOKS OVERWEIGHT, TIRED AND SOMEWHAT DEPRESSED. General: comfortable, no acute distress, alert and awake Orientation/consciousness: patient oriented x3 HEENT Head: Yes normal to inspection General nose exam: No nasal polyps present and No nasal discharge present Face and sinus: Yes sinuses nontender Mouth: oropharynx normal Throat: Yes posterior oropharynx normal Eyes General: appearance normal, both eyes and all related structures Neck Neck: Yes normal visual inspection, Yes no lymphadenopathy, Yes trachea midline and Yes no JVD Thyroid: Thyroid normal Chest Chest palpation & inspection: normal inspection of the chest, normal palpation of entire chest wall and tenderness (He has point tenderness over the left mid chest in the axillary area, ) Resp Other: PERCUSSION NOTE RESONANT, BREATH SOUNDS ARE VERY DISTANT, WITH PROLONGED EXPIRATORY PHASE. NO WHEEZES OR CREPITATIONS ARE HEARD TODAY. Cardio Palpation: normal PMI Rate: regular rate Rhythm: regular rhythm Heart sounds: no gallops and no murmurs GI Palpation (GI): Soft to palpation, nontender, No hepatosplenomegaly present, no masses and Other GI palpation findings present (ABDOMEN IS MODERATELY PROTUBERANT) Auscultation: normal bowel sounds Back/Spine/Pelvis Thoracic/Lumbar Spine: thoracic and lumbar spine normal to inspection, thoraco-l umbar ROM limited and thoraco-lumbar spasm Skin General skin exam: no rashes or lesions noted Neuro General: patient oriented x3 and no focal motor deficits Cranial nerves: Yes CN's II-XII intact bilaterally Extrem General: Yes normal to inspection, No no joint enlargement (BOTH KNEES ARE SLIGHTLY ENLARGED AND PAINFUL), Yes no clubbing, cyanosis or edema, Yes no calf tenderness and Yes normal gait (NEEDS A CANE) Psych Appearance: grossly normal Speech and movement: Normal speech and movement present Assessment & Plan Assessment & Plan (1) Chest pain in adult: Comment: HAD A FALL YESTERDAY AND HURT HIS LEFT SIDE OF THE CHEST. HAS TENDERNESS OVER THE LEFT MID CHEST AND AXILLARY AREA. CAN NOT TAKE DEEP BREATHS BECAUSE OF PAIN. Code(s): R07.9 - Chest pain, unspecified Category: Medical Plan: X-RAY OF THE LEFT RIBCAGE IS ORDERED. APPLY WARM PACKS OVER THE LEFT MID. CHEST T.I.D. MAY USE EXTRA-STRENGTH TYLENOL 2 TABLETS T.I.D. ADVISED TO MAKE APPOINTMENT WITH HIS PRIMARY CARE PHYSICIAN TO BE CHECKED RELATIVELY SOON. (2) COPD (chronic obstructive pulmonary disease): Comment: THIS GENTLEMAN HAS CHRONIC, MODERATELY SEVERE, ASTHMA/COPD OVERLAP SYNDROME. HE IS STABLE AT THIS TIME. HOWEVER HAS INCREASED SHORTNESS OF BREATH BECAUSE HE CAN NOT TAKE DEEP BREATH DUE TO LEFT CHEST WALL INJURY. Code(s): J44.9 - Chronic obstructive pulmonary disease, unspecified Category: Medical Plan: CONTINUE USING BREO 100-251 INHALATION DAILY USE ALBUTEROL 2.5 MG ( 3 ML) SOLUTION IN THE NEBULIZER Q 6 HOURS P.R.N. OR ALBUTEROL HFA Q.6 HOURS P.R.N. X-RAYS OF LEFT RIBCAGE ORDERED (3) VIDA on CPAP: Comment: THIS GENTLEMAN HAS OBSTRUCTIVE SLEEP APNEA FOR MANY YEARS, HAS BEEN USING HIS CPAP VERY. REGULARLY AT NIGHT HE IS VERY HAPPY WITH HIS NEW CPAP MACHINE AND HAS NO ISSUES WITH THE MASK. Code(s): G47.33 - Obstructive sleep apnea (adult) (pediatric); Z99.89 - Dependence on other enabling machines and devices Category: Medical Plan: CONTINUE TO USE THE CPAP REGULARLY EVERY NIGHT Orders: Orders XR ribs LT 2V Today R07.9 - Chest pain, unspecified Coding Level of Care Code Est Pt Level 3 (97137) Diagnoses Chest pain in adult R07.9 COPD (chronic obstructive pulmonary disease) J44.9 VIDA on CPAP G47.33; Z99.89
== END 2024-08-08 16:14 | disposition home or self-care (01) ==
PROVIDERS: PCP Internal Medicine; Visit Provider Internal Medicine
DX: R07.9 Chest pain, unspecified (principal); J44.9 Chronic obstructive pulmonary disease, unspecified; G47.33 Obstructive sleep apnea (adult) (pediatric); Z99.89 Dependence on other enabling machines and devices
CPT/HCPCS: 99213

== ENCOUNTER 2024-08-08 14:58 | Outpatient (REF) | payer MEDICARE, SELFPAY | END 2024-08-08 14:59 | disposition home or self-care (01) | LOC: HO.XRAY 14:58 | PROVIDERS: PCP Internal Medicine; Visit Provider Internal Medicine | DX: R07.9 Chest pain, unspecified (principal); J44.9 Chronic obstructive pulmonary disease, unspecified; G47.33 Obstructive sleep apnea (adult) (pediatric); Z99.89 Dependence on other enabling machines and devices; Z79.899 Other long term (current) drug therapy | CPT/HCPCS: 71101; 99212 ==

== ENCOUNTER 2024-08-14 14:23 | Outpatient (AMB) | payer MEDICARE, SELFPAY ==
--- NOTE | 2024-08-14 14:33 | A.OFFPSYCH_ITS ---
Intake Intake Visit Reasons: f/u consultation Rehabilitation Medicine Physician Required: No Allergies hydrocortisone [HYDROCORTISONE] Allergy (Severe, Verified 08/08/24 16:19) SWELLING NSAIDS (Non-Steroidal Anti-Inflamma [NSAIDS (NON-STEROIDAL ANTI-INFLAMMA] Allergy (Severe, Verified 08/08/24 16:19) BLEEDING aspirin Allergy (Unknown, Verified 08/08/24 16:19) bleeding doxycycline Adverse Reaction (Severe, Verified 08/08/24 16:19) in-effective Medication List - Last Reconciled 08/14/24 by Gayathri Castro APRN albuterol sulfate 90 mcg/actuation 2 puffs inhalation Q4H PRN albuterol sulfate 2.5 mg (3 mL) inhalation Q4H PRN amlodipine (Norvasc) 5 mg PO DAILY brimonidine 0.2% 1 drp ophthalmic-Left BID clonazepam 0.5 mg orally Take 1/2 tablet in morning and 1 tab at 5pm fluticasone furoate-vilanterol 100-25 mcg/dose (Breo Ellipta) 1 inh inhalation RDAILY gabapentin 300 mg PO BID insulin glargine (Lantus Solostar U-100 Insulin) 40 units subcut BEDTIME insulin lispro (Humalog KwikPen (U-100) Insulin) 20 units (0.2 mL) subcut TIDAC insulin syringe,safety needle As directed latanoprost 0.005% 1 drp ophthalmic-Left BEDTIME metoprolol succinate ER 50 mg PO DAILY pantoprazole 20 mg PO DAILY@0630 pen needle, diabetic (Comfort EZ Pen [place]) Use 3 times daily with insulin timolol maleate 0.5% 1 drp ophthalmic-Left BID venlafaxine ER 75 mg PO DAILY venlafaxine ER 150 mg PO BEDTIME zolpidem 5 mg PO BEDTIME HPI- Psychiatric Chief Complaint: f/u consultation HPI Narrative: pt reports more anxiety and more depression PHQ9=24 GAD7 = 20 . pt still not sleeping; anxious every day. no other changes; many home stressors. Past Psychiatric History: outp tx for years with venlafaxine and clonazepam Subjective Subjective Subjective Medication Compliance: Yes Side effects from medications: No Review of Systems Medical Review of Systems: unchanged Mental Status Exam Mental Status Exam Patient Appearance: Disheveled and Unkempt Patient Orientation: Person, Place, Time and Situation Level of Consciousness: Awake Patient Behavior: Appropriate Mood Description: Depressed and Anxious Affect Description: Depressed and Anxious Patient Cognition Impaired: No Ability to Follow Directions: Good Speech Pattern: Clear Memory Description: Intact Hallucinations: None Delusions: Not Present Thought Process: Intact Thought Content: positive for Intact Judgement: Fair Assessment and Plan Assessment & Plan (1) ESTELLA (generalized anxiety disorder): Status: Acute Code(s): F41.1 - Generalized anxiety disorder (2) Major depressive disorder, recurrent severe without psychotic features: Status: Acute Code(s): F33.2 - Major depressive disorder, recurrent severe without psychotic features Plan pt very depressed and anxious add wellbutrin SR 100mg qam for depression add magnesium glycinate 100mg bid fro anxiety encouraged to stay hydrated Medications: New bupropion HCl SR (Wellbutrin SR) 100 mg PO QAM 30 tabs 0RF magnesium glycinate 100 mg PO BID 60 caps 0RF Counseling and coordination of Care Pt. Self Management counseling: Maintenance-social rhythm, Mod caffeine/ETOH intake, Nutrition education and improvement, Sleep hygiene, Behavior activation, General coping skills and Problem solving Medication management counseling: Effectiveness, Side effects, Dosing range, Duration, Drug interaction and Adherence Diagnosis and Prognosis Counseling: Accuracy of diagnosis, Prognosis over time, Impact of diagnosis on life functions, Impact of family relationship, Problematic behaviors secondary to diagnosis and Adequacy of current interventions Details: I spent 40 minutes reviewing the record, seeing the patient and documenting in the medical record. Counseling provided to the patient/caregiver as outlined below. Addressed pat ient/caregiver concerns regarding current medication regime including effective adherence. Addressed patient/caregiver concerns regarding diagnosis and prognosis including accuracy of diagnosis, prognosis over time, impact of diagnosis. Addressed patient/caregiver concerns regarding impact of recent stressors. [facility] Medical History Chest pain in adult Class 2 severe obesity with body mass index (BMI) of 35 to 39.9 with serious comorbidity Bilateral primary osteoarthritis of knee Osteoarthritis of right knee Diabetes mellitus type 2, uncontrolled COPD exacerbation Arthritis of both knees Chronic pain syndrome Allergic rhinitis VIDA on CPAP COPD (chronic obstructive pulmonary disease) Lumbar radiculopathy Allergic rhinitis Asthma Benign prostatic hyperplasia Back pain Sleep apnea HTN (hypertension) Lumbar spondylosis Tendon tear Depression Arthritis Asthma Crohn disease Surgical History H/O colonoscopy Family History Father No problems noted. Mother No problems noted. Social History Household Members: Spouse Housing: House Do you presently have visiting nurse or other home services: No Alcohol intake: never Comment: pain 3-4 left knee and buttock Patient Tobacco Use Status: Former Tobacco user e-Cigarette/Vaping Use: Never Used Second Hand Smoke Exposure: No Advance Directives Date on File: 07/07/24 service: No Current occupational status: retired Cognitive needs: Yes (cane) Hearing needs: No Vision needs: Yes (Glasses) Social History: lives with ; has 3 adult children ; retired from [employer] Substance History: denies Trauma History: difficult childhood- mother when he was age 8. raised by brother and sister Coding Level of Care Code Est Pt Level 4 (95868) Diagnoses ESTELLA (generalized anxiety disorder) F41.1 Major depressive disorder, recurrent severe without psychotic features F33.2
== END 2024-08-14 15:04 | disposition home or self-care (01) ==
LOC: HO.HOP 14:23
PROVIDERS: PCP Internal Medicine; Visit Provider Clinical Nurse Specialist Psychiatric/Mental Health
DX: F41.1 Generalized anxiety disorder (principal); F33.2 Major depressive disorder, recurrent severe without psychotic features
CPT/HCPCS: 99214

== ENCOUNTER → 2024-08-14 14:23 | Outpatient (BNVA) | payer MEDICARE, SELFPAY | PROVIDERS: PCP Internal Medicine; Visit Provider Clinical Nurse Specialist Psychiatric/Mental Health | DX: F41.1 Generalized anxiety disorder (principal); F33.2 Major depressive disorder, recurrent severe without psychotic features | CPT/HCPCS: 99212 ==

== ENCOUNTER 2024-08-28 14:48 | Outpatient (AMB) | payer MEDICARE, SELFPAY ==
--- NOTE | 2024-08-28 14:55 | MHC.OFFVISPS ---
Intake Intake Visit Reasons: f/u consultation Allergies hydrocortisone [HYDROCORTISONE] Allergy (Severe, Verified 08/08/24 16:19) SWELLING NSAIDS (Non-Steroidal Anti-Inflamma [NSAIDS (NON-STEROIDAL ANTI-INFLAMMA] Allergy (Severe, Verified 08/08/24 16:19) BLEEDING aspirin Allergy (Unknown, Verified 08/08/24 16:19) bleeding doxycycline Adverse Reaction (Severe, Verified 08/08/24 16:19) in-effective Medication List - Last Reconciled 09/04/24 by Gayathri Castro APRN albuterol sulfate 90 mcg/actuation 2 puffs inhalation Q4H PRN albuterol sulfate 2.5 mg (3 mL) inhalation Q4H PRN amlodipine (Norvasc) 5 mg PO DAILY brimonidine 0.2% 1 drp ophthalmic-Left BID bupropion HCl SR (Wellbutrin SR) 100 mg PO QAM clonazepam 0.5 mg orally Take 1 tablet in morning and 1 tab at 5pm fluticasone furoate-vilanterol 100-25 mcg/dose (Breo Ellipta) 1 inh inhalation RDAILY insulin glargine (Lantus Solostar U-100 Insulin) 40 units subcut BEDTIME insulin lispro (Humalog KwikPen (U-100) Insulin) 20 units (0.2 mL) subcut TIDAC insulin syringe,safety needle As directed latanoprost 0.005% 1 drp ophthalmic-Left BEDTIME magnesium glycinate 100 mg PO BID metoprolol succinate ER 50 mg PO DAILY pantoprazole 20 mg PO DAILY@0630 pen needle, diabetic (Comfort EZ Pen [place]) Use 3 times daily with insulin timolol maleate 0.5% 1 drp ophthalmic-Left BID venlafaxine ER 75 mg PO DAILY venlafaxine ER 150 mg PO BEDTIME zolpidem 5 mg PO BEDTIME HPI- Psychiatric Chief Complaint: f/u consultation HPI Narrative: pt reports continued anxiety; PHQ9= 10 and ESTELLA 7 = 17. pt stopped gabapentin as it was not helping. Past Psychiatric History: outp tx for years with venlafaxine and clonazepam Subjective Subjective Subjective Medication Compliance: Yes Side effects from medications: No Review of Systems Medical Review of Systems: unchanged Mental Status Exam Mental Status Exam Patient Appearance: Appropriate Patient Orientation: Person, Place, Time and Situation Level of Consciousness: Awake and Appropriate Patient Behavior: Appropriate and Cooperative Mood Description: Anxious Affect Description: Anxious Patient Cognition Impaired: No Ability to Follow Directions: Good Speech Pattern: Clear Memory Description: Intact Hallucinations: None Delusions: Not Present Thought Process: Intact and Goal Oriented Thought Content: positive for Intact and positive for Goal Oriented Judgement: Good Assessment and Plan Assessment & Plan (1) ESTELLA (generalized anxiety disorder): Status: Acute Code(s): F41.1 - Generalized anxiety disorder (2) Major depressive disorder, recurrent severe without psychotic features: Status: Acute Code(s): F33.2 - Major depressive disorder, recurrent severe without psychotic features Plan pt stopped the gabapentin due to leg swelling increase clonazepam 0.5mg bid stay hydrated Medications: Changed From clonazepam 0.5 mg orally Take 1/2 tablet in morning and 1 tab at 5pm 45 tabs 2RF To clonazepam 0.5 mg orally Take 1 tablet in morning and 1 tab at 5pm 60 tabs 2RF Discontinued gabapentin Discontinued Reason: Patient Refused 300 mg PO BID 180 caps 1RF Counseling and coordination of Care Medication management counseling: Effectiveness, Side effects, Dosing range, Duration, Drug interaction and Adherence Diagnosis and Prognosis Counseling: Accuracy of diagnosis, Prognosis over time and Adequacy of current interventions Details: I spent 35 minutes reviewing the record, seeing the patient and documenting in the medical record. Counseling provided to the patient/caregiver as outlined below. Addressed patient/caregiver concerns regarding current medication regime including effective adherence. Addressed patient/caregiver concerns regarding diagnosis and prognosis including accuracy of diagnosis, prognosis over time, impact of diagnosis. Addressed patient/caregiver concerns regarding impact of recent stressors. [facility] Medical History Chest pain in adult Class 2 severe obesity with body mass index (BMI) of 35 to 39.9 with serious comorbidity Bilateral primary osteoarthritis of knee Osteoarthritis of right knee Diabetes mellitus type 2, uncontrolled COPD exacerbation Arthritis of both knees Chronic pain syndrome Allergic rhinitis VIDA on CPAP COPD (chronic obstructive pulmonary disease) Lumbar radiculopathy Allergic rhinitis Asthma Benign prostatic hyperplasia Back pain Sleep apnea HTN (hypertension) Lumbar spondylosis Tendon tear Depression Arthritis Asthma Crohn disease Surgical History H/O colonoscopy Family History Father No problems noted. Mother No problems noted. Social History Household Members: Spouse Housing: House Do you presently have visiting nurse or other home services: No Alcohol intake: never Comment: pain 3-4 left knee and buttock Patient Tobacco Use Status: Former Tobacco user e-Cigarette/Vaping Use: Never Used Second Hand Smoke Exposure: No Advance Directives Date on File: 07/07/24 service: No Current occupational status: retired Cognitive needs: Yes (cane) Hearing needs: No Vision needs: Yes (Glasses) Social History: lives with ; has 3 adult children ; retired from [email or web address] Substance History: denies Trauma History: difficult childhood- mother when he was age 8. raised by brother and sister Coding Level of Care Code Est Pt Level 4 (89730) Diagnoses ESTELLA (generalized anxiety disorder) F41.1 Major depressive disorder, recurrent severe without psychotic features F33.2
== END 2024-08-28 15:00 | disposition home or self-care (01) ==
LOC: HO.HOP 14:48
PROVIDERS: PCP Internal Medicine; Visit Provider Clinical Nurse Specialist Psychiatric/Mental Health
DX: F41.1 Generalized anxiety disorder (principal); F33.2 Major depressive disorder, recurrent severe without psychotic features
CPT/HCPCS: 99214

== ENCOUNTER → 2024-08-28 14:48 | Outpatient (BNVA) | payer MEDICARE, SELFPAY | PROVIDERS: PCP Internal Medicine; Visit Provider Clinical Nurse Specialist Psychiatric/Mental Health | DX: F41.1 Generalized anxiety disorder (principal); F33.2 Major depressive disorder, recurrent severe without psychotic features; Z71.89 Other specified counseling | CPT/HCPCS: 99212 ==

== ENCOUNTER 2024-09-11 15:09 | Outpatient (AMB) | payer MEDICARE, SELFPAY ==
--- NOTE | 2024-09-11 15:13 | A.OFFVIS_ITS ---
Vital Signs 09/11/24 15:14 Height 5 ft 8 in Weight 231 lb 7.766 oz BMI 35.2 BP 138/67 Blood Pressure Location Lt brachial Position Sitting Pulse 58 Pulse Source Doppler Pulse Oximetry (%) 95 Oxygen Delivery Method Room Air Intake Visit Reasons: COPD Allergies hydrocortisone [HYDROCORTISONE] Allergy (Severe, Verified 09/11/24 16:20) SWELLING NSAIDS (Non-Steroidal Anti-Inflamma [NSAIDS (NON-STEROIDAL ANTI-INFLAMMA] Allergy (Severe, Verified 09/11/24 16:20) BLEEDING aspirin Allergy (Unknown, Verified 09/11/24 16:20) bleeding doxycycline Adverse Reaction (Severe, Verified 09/11/24 16:20) in-effective Medication List - Last Reconciled 09/11/24 by Pepe Rojas MD albuterol sulfate 90 mcg/actuation 2 puffs inhalation Q4H PRN albuterol sulfate 2.5 mg (3 mL) inhalation Q4H PRN amlodipine (Norvasc) 5 mg PO DAILY brimonidine 0.2% 1 drp ophthalmic-Left BID bupropion HCl SR (Wellbutrin SR) 100 mg PO QAM clonazepam 0.5 mg orally Take 1 tablet in morning and 1 tab at 5pm fluticasone propion-salmeterol 250-50 mcg/dose (Advair Diskus) 1 inh inhalation BID insulin glargine (Lantus Solostar U-100 Insulin) 40 units subcut BEDTIME insulin lispro (Humalog KwikPen (U-100) Insulin) 20 units (0.2 mL) subcut TIDAC insulin syringe,safety needle As directed latanoprost 0.005% 1 drp ophthalmic-Left BEDTIME magnesium glycinate 100 mg PO BID metoprolol succinate ER 50 mg PO DAILY pantoprazole 20 mg PO DAILY@0630 pen needle, diabetic (Comfort EZ Pen [place]) Use 3 times daily with insulin timolol maleate 0.5% 1 drp ophthalmic-Left BID venlafaxine ER 75 mg PO DAILY venlafaxine ER 150 mg PO BEDTIME zolpidem 5 mg PO BEDTIME Do you need a note to return to daycare/school/sports/work: No HPI HPI COPD: Details: THIS 74 YEARS OLD GENTLEMAN, WITH CHRONIC LUNG DISEASE, RECURRENT WHEEZING AND SHORTNESS OF BREATH ON EXERTION., COMES FOR A SHORT TERM FOLLOW-UP. THE LEFT-SIDED CHEST PAIN FOR WHICH HE WAS SEEN 4 WEEKS AGO, HAS SLOWLY RESOLVED. THE CHEST X-RAY AND RIB X-RAYS WERE NEGATIVE. HE DOES NOT NEED ANY PAIN MED AT THIS TIME. BREATHING HAS REMAINED STABLE BUT HE GETS SHORT OF BREATH ON MINIMAL EXERTION. HE WAS NOT ABLE TO GET BREO, AND WENT BACK TO ADVAIR 250-50 B.I.D. . AT PRESENT HE HE IS AT HIS BASELINE, BUT HE DOES GET SHORT OF BREATH ON MINIMAL WALKING OR ESPECIALLY CLIMBING STAIRS. FOR HIS CHRONIC OBSTRUCTIVE, SLEEP APNEA HE USES CPAP VERY REGULARLY EVERY NIGHT. [facility], [facility] Medical History Chest pain in adult Class 2 severe obesity with body mass index (BMI) of 35 to 39.9 with serious comorbidity Bilateral primary osteoarthritis of knee Osteoarthritis of right knee Diabetes mellitus type 2, uncontrolled COPD exacerbation Arthritis of both knees Chronic pain syndrome Allergic rhinitis VIDA on CPAP COPD (chronic obstructive pulmonary disease) Lumbar radiculopathy Allergic rhinitis Asthma Benign prostatic hyperplasia Back pain Sleep apnea HTN (hypertension) Lumbar spondylosis Tendon tear Depression Arthritis Asthma Crohn disease Surgical History H/O colonoscopy Family History Father No problems noted. Mother No problems noted. Social History Household Members: Spouse Housing: House Do you presently have visiting nurse or other home services: No Alcohol intake: never Comment: pain 3-4 left knee and buttock Patient Tobacco Use Status: Former Tobacco user e-Cigarette/Vaping Use: Never Used Second Hand Smoke Exposure: No Advance Directives Date on File: 07/07/24 service: No Current occupational status: retired Cognitive needs: Yes (cane) Hearing needs: No Vision needs: Yes (Glasses) Review of Systems Const All systems reviewed & are unremarkable except as noted in HPI and below Eyes Reports no additional complaints ENT Reports nasal congestion and Reports nasal discharge (Postnasal discharge off and on) Card Denies chest pain, Denies irregular heart rhythm and Denies dyspnea on exertion Resp Reports as per HPI, Denies dyspnea on exertion and Reports other (Complains of lot of pain over the left mid chest due to fall yesterday) GI Reports heartburn (Symptoms of GERD or controlled) Reports no additional complaints Musc Reports back pain, Reports myalgias and Reports arthralgias Skin/Breast Reports system reviewed and no additional complaints, except as documented Neuro Reports no additional complaints Psych Reports no additional complaints Physical Exam Vital Signs: Last Vital Signs Pulse 58 09/11/24 15:14 BP 138/67 09/11/24 15:14 Pulse Ox 95 09/11/24 15:14 Oxygen Delivery Method Room Air 09/11/24 15:14 BMI result Body Mass Index 35.2 Const Other: HE LOOKS OVERWEIGHT, TIRED AND SOMEWHAT DEPRESSED. General: comfortable, no acute distress, alert and awake Orientation/consciousness: patient oriented x3 HEENT Head: Yes normal to inspection General nose exam: No nasal polyps present and No nasal discharge present Face and sinus: Yes sinuses nontender Mouth: oropharynx normal Throat: Yes posterior oropharynx normal Eyes General: appearance normal, both eyes and all related structures Neck Neck: Yes normal visual inspection, Yes no lymphadenopathy, Yes trachea midline and Yes no JVD Thyroid: Thyroid normal Chest Chest palpation & inspection: normal inspection of the chest, normal palpation of entire chest wall and no tenderness Resp Other: PERCUSSION NOTE RESONANT, BREATH SOUNDS ARE VERY DISTANT, WITH PROLONGED EXPIRATORY PHASE. NO WHEEZES OR CREPITATIONS ARE HEARD TODAY. Cardio Palpation: normal PMI Rate: regular rate Rhythm: regular rhythm Heart sounds: no gallops and no murmurs GI Palpation (GI): Soft to palpation, nontender, No hepatosplenomegaly present, no masses and Other GI palpation findings present (ABDOMEN IS MODERATELY PROTUBERANT) Auscultation: normal bowel sounds Back/Spine/Pelvis Thoracic/Lumbar Spine: thoracic and lumbar spine normal to inspection, thoraco- lumbar ROM limited and thoraco-lumbar spasm Skin General skin exam: no rashes or lesions noted Neuro General: patient oriented x3 and no focal motor deficits Cranial nerves: Yes CN's II-XII intact bilaterally Extrem General: Yes normal to inspection, No no joint enlargement (BOTH KNEES ARE SLIGHTLY ENLARGED AND PAINFUL), Yes no clubbing, cyanosis or edema, Yes no calf tenderness and Yes normal gait (NEEDS A CANE) Psych Appearance: grossly normal Speech and movement: Normal speech and movement present Assessment & Plan Assessment & Plan (1) COPD (chronic obstructive pulmonary disease): Comment: THIS GENTLEMAN HAS CHRONIC, MODERATELY SEVERE, ASTHMA/COPD OVERLAP SYNDROME. HE IS STABLE AT THIS TIME. HOWEVER HAS INCREASED SHORTNESS OF BREATH BECAUSE HE CAN NOT TAKE DEEP BREATH DUE TO LEFT CHEST WALL INJURY. Code(s): J44.9 - Chronic obstructive pulmonary disease, unspecified Category: Medical Plan: CONTINUE USING ADVAIR 250-51 INHALATION B.I.D. AND USE ALBUTEROL HFA 2 PUFFS Q 6 HOURS P.R.N. OR ALTERNATIVELY USE ALBUTEROL SOLUTION IN THE NEBULIZER Q 6 HOURS P.R.N. (2) VIDA on CPAP: Comment: THIS GENTLEMAN HAS OBSTRUCTIVE SLEEP APNEA FOR MANY YEARS, HAS BEEN USING HIS CPAP VERY. REGULARLY AT NIGHT HE IS VERY HAPPY WITH HIS NEW CPAP MACHINE AND HAS NO ISSUES WITH THE MASK. Code(s): G47.33 - Obstructive sleep apnea (adult) (pediatric); Z99.89 - Dependence on other enabling machines and devices Category: Medical Plan: CONTINUE USING CPAP EVERY NIGHT REGULARLY (3) Allergic rhinitis: Comment: He has chronic allergic rhinitis, remains controlled with p.r.n. use of loratadine. Code(s): J30.9 - Allergic rhinitis, unspecified Category: Medical Plan: OK TO USE LORATADINE 10 MG ONCE A DAY P.R.N. Coding Level of Care Code Est Pt Level 3 (13549) Diagnoses COPD (chronic obstructive pulmonary disease) J44.9 VIDA on CPAP G47.33; Z99.89 Allergic rhinitis J30.9
[2024-09-11 15:14] VITALS: BP 138/67; PULSE 58; O2SAT 95; BMI 35.2
== END 2024-09-11 15:38 | disposition home or self-care (01) ==
PROVIDERS: PCP Internal Medicine; Visit Provider Internal Medicine
DX: J44.9 Chronic obstructive pulmonary disease, unspecified (principal); G47.33 Obstructive sleep apnea (adult) (pediatric); Z99.89 Dependence on other enabling machines and devices; J30.9 Allergic rhinitis, unspecified
CPT/HCPCS: 99213

== ENCOUNTER → 2024-09-11 15:09 | Outpatient (BNVA) | payer MEDICARE, SELFPAY | PROVIDERS: PCP Internal Medicine; Visit Provider Internal Medicine | DX: J44.9 Chronic obstructive pulmonary disease, unspecified (principal); J30.9 Allergic rhinitis, unspecified; G47.33 Obstructive sleep apnea (adult) (pediatric); Z99.89 Dependence on other enabling machines and devices | CPT/HCPCS: 99212 ==

== ENCOUNTER 2024-09-21 10:49 | Inpatient (IN) | payer MEDICARE, SELFPAY ==
[2024-09-21] VITALS (9 sets, daily range): BP systolic 128–157; BP diastolic 55–74; PULSE 63–80; RESP 15–20; TEMP 36.1–37.1; O2SAT 88–95; BMI 35.0
--- NOTE | ~2024-09-21 | XR_ITS ---
EXAMINATION: XR CHEST CLINICAL INFORMATION: pain COMPARISON: Radiographs 08/08/2024 TECHNIQUE: 2 views of the chest were obtained. FINDINGS: Ill-defined airspace opacity in the inferolateral aspect of the right upper lobe. No pleural effusion. Left lung appears clear. Stable cardiomediastinal silhouette. XR/XR chest 2V IMPRESSION: Right upper lobe pneumonia. Follow-up to clearing. Electronically signed by: Tramaine Avery MD 09/21/2024 02:21 PM [facility]
--- NOTE | 2024-09-21 11:04 | ECG_ITS ---
Test Reason : CP Blood Pressure : / mmHG Vent. Rate : 078 BPM Atrial Rate : 078 BPM P-R Int : 164 ms QRS Dur : 098 ms QT Int : 396 ms P-R-T Axes : 034 -04 040 degrees QTc Int : 451 ms Normal sinus rhythm Normal ECG When compared with ECG of 08-JUL-2024 10:22, No significant change was found Referred By: Sunday Helms Electronically Signed By:CHARLOTTE GORDON MD
--- NOTE | 2024-09-21 11:04 | ED_ITS ---
HPI - General Adult General Chief complaint: General Medical Stated complaint: nausea vomiting Time Seen by Provider: 09/21/24 11:31 Source: patient, family, RN notes reviewed and old records reviewed Mode of arrival: ambulatory History of Present Illness ED Provider: Alejandra Olsen PA-C HPI narrative: 74-year-old male with a past medical history of diabetes, COPD, VIDA on CPAP, asthma, BPH, HTN, depression, Crohn's disease, presenting to the ED complaining chest pain, SOB, productive cough, nausea, and lightheadedness x3 days. Reports right-sided rib pain s/p falling onto boat in backyard. Denies anticoagulation use, head trauma or LOC. Denies abdominal pain, vomiting, diarrhea /constipation, dysuria /hematuria Related Data Home Medications ?Medication ?Instructions ?Recorded ?Confirmed latanoprost 0.005 % eye drops 1 drp ophthalmic-Left BEDTIME 11/17/21 09/11/24 brimonidine 0.2 % eye drops 1 drp ophthalmic-Left BID 05/18/23 09/11/24 albuterol sulfate 90 mcg/actuation 2 puff inhalation Q4H PRN for 06/19/24 09/11/24 aerosol inhaler wheezing insulin glargine 100 unit/mL (3 40 unit subcut BEDTIME 06/19/24 09/11/24 mL) subcutaneous pen (Lantus Solostar U-100 Insulin) timolol maleate 0.5 % eye drops 1 drp ophthalmic-Left BID 06/24/24 09/11/24 fluticasone 250 mcg-salmeterol 50 1 inh inhalation BID 09/11/24 09/11/24 mcg/dose blistr powdr for inhalation (Advair Diskus) Previous Rx's ?Medication ?Instructions ?Recorded insulin syringe,safety needle 0.3 #100 ea 09/28/21 mL 29 gauge x 1/2 pen needle, diabetic 32 gauge x #100 ea 04/09/22 5/16 (Comfort EZ Pen [place]) metoprolol succinate 50 mg 50 mg PO DAILY #90 tabs 06/27/24 tablet,extended release 24 hr pantoprazole 20 mg tablet,delayed 20 mg PO DAILY@0630 #90 tabs 06/27/24 release amlodipine 5 mg tablet (Norvasc) 5 mg PO DAILY #30 tabs 07/09/24 zolpidem 5 mg tablet 5 mg PO BEDTIME #30 tabs 07/17/24 venlafaxine 75 mg capsule,extended 75 mg PO DAILY #90 caps 07/26/24 release 24 hr albuterol sulfate 2.5 mg/3 mL 2.5 mg (3 mL) inhalation Q4H PRN 08/09/24 (0.083 %) solution for nebulization shortness of breath or wheezing #90 mL insulin lispro 100 unit/mL 20 unit (0.2 mL) subcut TIDAC #15 08/10/24 subcutaneous pen (Humalog KwikPen mL (U-100) Insulin) bupropion HCl 100 mg tablet,12 hr 100 mg PO QAM #30 tabs 08/14/24 sustained-release (Wellbutrin SR) magnesium glycinate 100 mg PO BID #60 caps 08/14/24 venlafaxine 150 mg 150 mg PO BEDTIME #30 caps 08/20/24 capsule,extended release 24 hr clonazepam 0.5 mg tablet 0.5 mg PO .COMPLEX #60 tabs 08/28/24 Allergies Allergy/AdvReac Type Severity Reaction Status Date / Time hydrocortisone Allergy Severe SWELLING Verified 09/21/24 11:05 [HYDROCORTISONE] NSAIDS (Non-Steroidal Allergy Severe BLEEDING Verified 09/21/24 11:05 Anti-Inflamma [NSAIDS (NON-STEROIDAL ANTI-INFLAMMA] aspirin Allergy Unknown bleeding Verified 09/21/24 11:05 doxycycline AdvReac Severe in-effectiv Verified 09/21/24 11:05 e Review of Systems 2 Review of Systems: Yes all other systems are reviewed and are negative Constitutional: Constitutional: Reports as per HPI Neurologic: Denies Abnormal speech present [facility] Past Medical History Attestation statement: The following information was validated with the patient. Source: old records reviewed Medical History Chest pain in adult Class 2 severe obesity with body mass index (BMI) of 35 to 39.9 with serious comorbidity Bilateral primary osteoarthritis of knee Osteoarthritis of right knee Diabetes mellitus type 2, uncontrolled COPD exacerbation Arthritis of both knees Chronic pain syndrome Allergic rhinitis VIDA on CPAP COPD (chronic obstructive pulmonary disease) Lumbar radiculopathy Allergic rhinitis Asthma Benign prostatic hyperplasia Back pain Sleep apnea HTN (hypertension) Lumbar spondylosis Tendon tear Depression Arthritis Asthma Crohn disease Surgical History H/O colonoscopy Family History Family History Father No problems noted. Mother No problems noted. Social History Social History Household Members: Spouse Housing: House Do you presently have visiting nurse or other home services: No Alcohol intake: never Comment: pain 3-4 left knee and buttock Patient Tobacco Use Status: Former Tobacco user Smoked in Last 30 Days: No e-Cigarette/Vaping Use: Never Used Second Hand Smoke Exposure: No Use of substances other than those prescribed or required for medical reasons: No Advance Directives: Yes Advance Directives on File: Yes Advance Directives Date on File: 07/07/24 Do you have a plan to hurt others: No Plan service: No Current occupational status: retired Cognitive needs: Yes (cane) Hearing needs: No Vision needs: Yes (Glasses) Physical Exam ED Vital Signs: Vital Signs - 24 hr 09/21/24 10:58 09/21/24 12:17 09/21/24 12:37 Temperature 98.8 F 98.4 F Pulse Rate 80 72 78 Respiratory Rate 20 18 16 Blood Pressure 157/65 H 152/55 H Pulse Oximetry 88 L 89 L Oxygen Delivery Method Room Air Room Air 09/21/24 15:18 09/21/24 15:45 Temperature 98.3 F Pulse Rate 75 Respiratory Rate 16 Blood Pressure 151/74 H Pulse Oximetry 93 88 L Oxygen Delivery Method Room Air Room Air BMI result Body Mass Index 35.0 Const General: cooperative, healthy appearing and no acute distress Orientation/consciousness: patient oriented x3 Limitations: no limitations HENMT Head: Yes normal to inspection and Yes atraumatic Ears: hearing grossly normal bilaterally General nose exam: Normal external nose present Face and sinus: Yes normal facial exam Mouth: Normal oral and palatal mucosa present Throat: Yes posterior oropharynx normal Eyes General: appearance normal, both eyes and all related structures Pupils: Equal, round and reactive pupils present EOM: EOMs intact bilaterally Neck Neck: Yes normal visual inspection and Yes no meningeal signs Chest Other: + reproducible right anterior lateral lower rib tenderness. No ecchymosis/ erythema or flail chest. No crepitus Resp Effort & Inspection: normal respiratory effort and no respiratory distress Auscultation: no rhonchi, no wheezes and diminished lung sounds diffuse Cardio Rate: regular rate Heart sounds: S1 normal heart sound present and S2 normal heart sound present GI Inspection: Yes normal to inspection Palpation (GI): Soft to palpation, nontender, no guarding and not rigid Skin Rashes: no rashes Wounds: no wounds Neuro General: patient oriented x3, gait normal, tone normal, moves all extremities, no meningeal signs, no focal motor deficits and CN's II-XI intact bilaterally Cranial nerves: Yes CN's II-XII intact bilaterally, Yes Equal, round and reactive pupils present and Yes Bilaterally intact EOM present Cognition (Neuro): normal cognition Speech: No Abnormal speech present Gait exam (Neuro): Normal gait present Motor exam (neuro): 5/5 motor strength present throughout Extrem Other: + bilateral LE pitting edema Course Course Course Narrative: RME, this is a rapid medical exam performed by Cortes Helms please refer to primary provider for complete H&P- 74-year-old male past medical history significant for COPD not supplemental oxygen, obesity, anxiety presents for evaluation of multiple complaints including chest pain, shortness of breath, nausea, vomiting. he also reports dizziness. plan for labs, EKG, chest x-ray. He will be placed back in the waiting room pending availability and results - labs reassuring. Troponin negative. -1508-- UA negative. Viral studies negative XR chest 2V IMPRESSION: Right upper lobe pneumonia. Follow-up to clearing. > will give ceftriaxone/ azithromycin and ambulate with pulse ox. Anticipate admission >1600-- patient desaturated when ambulating with pulse ox, started at 93% on RA & desatted to 88% on RA. Plan for admission Medications Administered Generic Name Dose Route Start Last Admin Trade Name Freq PRN Reason Stop Dose Admin Azithromycin 500 mg/ Sodium 250 mls @ 125 mls/hr 09/21/24 14:45 09/21/24 15:35 Chloride IV 09/21/24 16:44 125 mls/hr ONCE ONE Administration Discontinued Medications Generic Name Dose Route Start Last Admin Trade Name Freq PRN Reason Stop Dose Admin Ceftriaxone Sodium 1 gm 09/21/24 14:45 09/21/24 15:34 Ceftriaxone Sodium 1 Gm Vial IVPUSH 09/21/24 14:46 1 gm ONCE ONE Administration Albuterol Sulfate 2.5 mg/ 0 mg 09/21/24 12:13 09/21/24 12:15 Albuterol/Ipratropium 3 ml INHALE 09/21/24 12:14 1 dose ONCE ONE Administration Medical Decision Making Medical Decision Making [facility] Narrative: 74-year-old male with a past medical history of diabetes, COPD, VIDA on CPAP, asthma, BPH, HTN, depression, Crohn's disease, presenting to the ED complaining chest pain, SOB, productive cough, nausea, and lightheadedness x3 days. On exam hypoxic 88% on RA, diminished lung sounds throughout, reproducible right lower rib tenderness without flail chest were crepitus. Bilateral LE pitting edema. Concern for asthma / COPD exacerbation vs viral illness vs pneumonia vs CHF vs rib fracture. Lower suspicion for hemothorax, intra-abdominal bleeding/ injury, CVA/TIA. DVT/ PE on differential however lower plan: EKG, labs, CXR, viral studies, ED bronch protocol, re-evaluate Please refer to course for remaining clinical decision making, interpretation of labs/imaging results, and discussions with consultants and/or family members. Differential Diagnosis Differential Diagnoses: The differential diagnosis associated with the presentation includes As above Admission/Observation Consideration of admission/observation: Escalation of care including admission/observation considered Lab Data [facility] Lab Attestation statement: I reviewed the patient's lab results. 09/21/24 11:15 09/21/24 11:15 Labs: Lab Results 09/21/24 09/21/24 Range/Units 11:15 12:38 WBC 11.7 H (4.8-10.8) X10*3/uL RBC 4.71 (4.60-5.80) X10*6/uL Hgb 13.1 L (14.0-18.0) g/dl Hct 40.4 L (42.0-52.0) % MCV 85.8 (80.0-98.0) fL MCH 27.8 (27.0-33.0) pg MCHC 32.4 (31.0-36.0) g/dl RDW 13.4 (11.0-16.0) % Plt Count 281 D (160-400) X10*3/uL MPV 10.7 (9.4-12.4) fL Immature Gran % (Auto) 0.4 (0.0-0.4) % Neut % (Auto) 85.7 H (45-73) % Lymph % (Auto) 6.5 L (20-40) % [place] % (Auto) 4.9 (2-11) % Eos % (Auto) 2.1 (0-4) % Baso % (Auto) 0.4 (0-2) % Lymph # (Auto) 0.8 L (1.2-4.9) X10*3/uL [place] # (Auto) 0.6 (0.1-1.2) X10*3/uL Eos # (Auto) 0.3 (0.0-0.4) X10*3/uL Baso # (Auto) 0.1 (0.0-0.2) X10*3/uL Abs Immat Gran (auto) 0.05 H (0.00-0.03) X10*3/uL Absolute Neuts (auto) 10.0 H (2.0-8.3) x10*3/uL Absolute Nucleated RBC 0.000 (0.0-0.012) X10*3/uL Nucleated RBC % (auto) 0.0 (0.0-0.2) /100WBC PT 14.8 H (10.9-12.4) SEC INR 1.3 H (0.9-1.1) Sodium 136 (135-145) mmol/L Potassium 3.8 (3.3-5.1) mmol/L Chloride 102 (96-108) mmol/L Carbon Dioxide 26 (22-29) mmol/L Anion Gap 12 (12-20) BUN 15 (9-16) mg/dL Creatinine 0.83 (0.5-1.4) mg/dL Estim Creat Clear Calc 91.4 Estimated GFR > 60 Random Glucose 168 H (60-115) mg/dL Calcium 9.4 (8.4-10.2) mg/dL Magnesium 1.7 (1.6-2.6) mg/dL Total Bilirubin 0.6 (0.0-1.0) mg/dL AST 18 (5-37) U/L ALT 9 (0-40) U/L Alkaline Phosphatase 97 (39-117) U/L Troponin I High Sens < 2.7 (<3.5-35.0) ng/L B-Natriuretic Peptide 97 (<100) pg/mL Total Protein 6.7 (6.5-8.0) g/dL Albumin 3.3 L (3.5-5.0) g/dL Lipase 14 (8-78) U/L Urine Color Yellow Urine Appearance Clear Urine pH 5.5 (5.0-9.0) Ur Specific [place] 1.025 (1.005-1.025) Urine Protein Trace (Neg-Trace) mg/dL Urine Glucose (UA) Negative (Negative) mg/dL Urine Ketones Trace (Negative) mg/dL Urine Blood Small (1+) H (Negative) Urine Nitrite Negative (Negative) Ur Leukocyte Esterase Negative (Negative) Urine RBC 0-2 (0-2) /HPF Urine WBC 0-5 (0-5) /HPF Ur Squamous Epith Cells 0-2 (0-2) /HPF Urine Bacteria None Seen (None Seen) Hyaline Casts 0-2 (0-2) /LPF Influenza Type A (PCR) NEGATIVE (Negative) Influenza Type B (PCR) NEGATIVE (Negative) RSV RNA Qual (PCR) NEGATIVE (Negative) SARS-CoV-2 RNA (RT-PCR) NEGATIVE (Negative) Independent Interpretation I performed an independent interpretation of an: EKG and Plain X-Ray Radiology Impression Discussion of test interpretation with radiology: I have reviewed the radiologist's reading. Independent Historian Clinical information obtained from an independent historian. History obtained from or confirmed by: Spouse External Record Review External record reviewed: Inpatient record, Office record, Outpatient record, Prior outpatient labs, Prior outpatient radiology, Primary care record and Outside ED record Tests considered The following testing was considered but not selected: As above Chronic Conditions Patient?s care impacted by: Diabetes and Hypertension Social Determinants Patient?s care significantly limited by Social Determinants of Health including: Other Social Determinant of Health Critical Care Time Critical Care Time Critical Care Time: Yes Total Critical Care Time: 35 Attestation: I have personally provided critical care time exclusive of time spent on separately billable procedures. Time includes review of lab data, radiology results, discussion with consultants, and monitoring for potential decompensation. Intervention performed as documented. Discharge Plan Discharge Clinical Impression: Right upper lobe pneumonia Patient Disposition: Still a Patient Prescriptions: No Action (DME) insulin syringe,safety needle 0.3 mL 29 x 1/2 syringe See Rx Instructions .Route Qty: 100 0RF Rx Instructions: As directed (DME) Comfort EZ Pen [place] 32 gauge x 5/16 needle See Rx Instructions .Route Qty: 100 0RF Rx Instructions: Use 3 times daily with insulin metoprolol succinate 50 mg tablet extended release 24 hr 50 mg PO DAILY Qty: 90 1RF pantoprazole 20 mg tablet,delayed release (DR/EC) 20 mg PO DAILY@0630 Qty: 90 1RF venlafaxine 75 mg capsule,extended release 24hr 75 mg PO DAILY Qty: 90 0RF albuterol sulfate 2.5 mg /3 mL (0.083 %) solution for nebulization 2.5 mg inhalation Q4H PRN (Reason: shortness of breath or wheezing) Qty: 90 3RF insulin lispro [Humalog KwikPen Insulin] 100 unit/mL insulin pen 20 unit subcut TIDAC Qty: 15 1RF venlafaxine 150 mg capsule,extended release 24hr 150 mg PO BEDTIME Qty: 30 2RF albuterol sulfate 90 mcg/actuation HFA aerosol inhaler 2 puff inhalation Q4H PRN (Reason: for wheezing) insulin glargine [Lantus Solostar U-100 Insulin] 100 unit/mL (3 mL) insulin pen 40 unit subcut BEDTIME timolol maleate 0.5 % drops 1 drp ophthalmic-Left BID amlodipine [Norvasc] 5 mg tablet 5 mg PO DAILY Qty: 30 0RF latanoprost 0.005 % drops 1 drp ophthalmic-Left BEDTIME brimonidine 0.2 % drops 1 drp ophthalmic-Left BID zolpidem 5 mg tablet 5 mg PO BEDTIME Qty: 30 2RF clonazepam 0.5 mg tablet 0.5 mg PO .COMPLEX Qty: 60 2RF Rx Instructions: 0.5 mg orally Take 1 tablet in morning and 1 tab at 5pm bupropion HCl [Wellbutrin SR] 100 mg tablet sustained-release 12 hr 100 mg PO QAM Qty: 30 0RF magnesium glycinate 100 mg magnesium capsule 100 mg PO BID Qty: 60 0RF fluticasone propion-salmeterol [Advair Diskus] 250-50 mcg/dose blister with device 1 inh inhalation BID Print Language: Polish
[2024-09-21 11:22] LABS: MANUAL DIFF FLAG NO
[2024-09-21 11:26] LABS: Basophils Percent Auto 0.4 % (0-2); Eosinophils Percent Auto 2.1 % (0-4); Hematocrit 40.4 % (42.0-52.0); Hemoglobin 13.1 g/dl (14.0-18.0); Imm Gran Pct Auto 0.4 % (0.0-0.4); Lymphocytes Percent Auto 6.5 % (20-40); Mean Corpuscular HGB Conc 32.4 g/dl (31.0-36.0); Mean Corpuscular Hemoglobin 27.8 pg (27.0-33.0); Mean Corpuscular Volume 85.8 fL (80.0-98.0); Mean Platelet Volume 10.7 fL (9.4-12.4); Monocytes Percent Auto 4.9 % (2-11); Neutrophils Percent Auto 85.7 % (45-73); Platelet Count 281 X10*3/uL (160-400); Red Blood Count 4.71 X10*6/uL (4.60-5.80); Red Cell Distribution Width 13.4 % (11.0-16.0); White Blood Count 11.7 X10*3/uL (4.8-10.8)
[2024-09-21 11:27] LABS: Basophils Absolute Auto 0.1 X10*3/uL (0.0-0.2); Eosinophils Absolute Auto 0.3 X10*3/uL (0.0-0.4); Imm Gran Abs Auto 0.05 X10*3/uL (0.00-0.03); Lymphocytes Absolute Auto 0.8 X10*3/uL (1.2-4.9); Monocytes Absolute Auto 0.6 X10*3/uL (0.1-1.2)
[2024-09-21 11:31] LABS: INTERNATIONAL NORM RATIO 1.3 (0.9-1.1); Prothrombin Time 14.8 SEC (10.9-12.4)
[2024-09-21 11:37] LABS: Alanine Aminotransferase 9 U/L (0-40); Albumin Level 3.3 g/dL (3.5-5.0); Alkaline Phosphatase 97 U/L (39-117); Anion Gap 12 (12-20); Aspartate Amino Transferase 18 U/L (5-37); Bilirubin Total 0.6 mg/dL (0.0-1.0); Blood Urea Nitrogen 15 mg/dL (9-16); Calcium 9.4 mg/dL (8.4-10.2); Carbon Dioxide 26 mmol/L (22-29); Chloride 102 mmol/L (96-108); Creatinine Clr Calc Pharmacy 91.4; Estimated Glomerular Filt Rate > 60; Glucose Random 168 mg/dL (60-115); Lipase 14 U/L (8-78); Potassium 3.8 mmol/L (3.3-5.1); Sodium 136 mmol/L (135-145); Total Protein 6.7 g/dL (6.5-8.0)
[2024-09-21 11:43] LABS: B Type Natriuretic Peptide 97 pg/mL (<100)
[2024-09-21 11:45] LABS: Troponin-I High Sensitivity < 2.7 ng/L (<3.5-35.0)
[2024-09-21] MEDS: Albuterol Sulfate 2.5 MG, Albuterol/Iprat 2.5/0.5MG 3 ML 3 ML INHALE (12:15)
[2024-09-21 12:16] LABS: Magnesium 1.7 mg/dL (1.6-2.6)
--- NOTE | 2024-09-21 12:42 | PC.NURSE ---
a&ox4. vss and up to date. nsr on the radiation monitor. pt presents to the ED c/o dizziness/lightheadedness/right sided cp/sob/nausea/productive cough x 3 days. pt denies any change in vision/RENNER/abd pain/diarrhea/fever/chills. pt displays between 88%-92% on RA s/p breathing treatment via RT. hx of COPD. pt waiting to have chest xray completed. urine obtained/sent to lab. on RA w/o difficulty - no respiratory distress noted. no sob/wob noted. respirations even/unlabored. plan of care ongoing. call rivas placed within reach.
[2024-09-21 12:45] LABS: Appearance Urine Clear; Color Urine Yellow; Glucose Urine UA Negative (Negative); Leukocyte Esterase Urine Negative (Negative); Nitrite Urine Negative (Negative); PH 5.5 (5.0-9.0); Specific Gravity - Urine 1.025 (1.005-1.025); UMIC TRIGGER UACC YES; Urine Blood Small (1+) (Negative); Urine Ketones Trace mg/dL (Negative); Urine Protein Trace mg/dL (Neg-Trace)
[2024-09-21 12:53] LABS: Bacteria Urine None Seen (None Seen); Hyaline Casts Urine 0-2 /LPF (0-2); RBC Urine 0-2 /HPF (0-2); Squamous Epithelial Cell Urine 0-2 /HPF (0-2); WBC Urine 0-5 /HPF (0-5)
[2024-09-21 12:56] LABS: Influenza A PCR NEGATIVE (Negative); Influenza B PCR NEGATIVE (Negative); Resp Syncy Virus RNA Qual PCR NEGATIVE (Negative); SARS COV2 PCR INHOUSE NEGATIVE (Negative)
[2024-09-21] MEDS: cefTRIAXone sodium 1 GM VIAL IVPUSH (15:34)
[2024-09-21] MEDS: Azithromycin 500 MG in 0.9 % Sodium Chloride 250 ML 125 MG IV (15:35)
--- NOTE | 2024-09-21 15:42 | MHC.EDTECH ---
This pct assumed care of Patient at 1500 ,vitals taken ,blood culture drawn and sent to lab ,Ambulation trial done ,Patient 02 sat started at 93 % when standing drop to 88 % while ambulating ,Provider aware .
--- NOTE | 2024-09-21 16:03 | PC.NURSE ---
20gIVG placed in the right hand - labs obtained/sent to lab. abx administered per provider order. ambulation trial performed by tech. per tech, pt ambulated w/ a strong steady gait w/o use of assistive devices. SPO2 ranged between 88%-93% during ambulation trial. sob noted. provider notified/aware of results.
--- NOTE | 2024-09-21 16:08 | PM.IMHP ---
History of Present Illness Date of Service: 09/21/24 Attending physician on admission: Tram Moore Chief Complaint: SOB, cough Pt is a 74-year-old male with a PMH significant for?asthma/COPD overlap syndrome not on home O2, HTN, insulin-dependent type 2 diabetes, peripheral neuropathy, GERD, VIDA on CPAP, and mood disorder who presents to the ED with?SOB, SIMON, and dizziness x2-3 days. Has also been experiencing nausea, vomiting, pleuritic chest pain, weakness, and productive cough. No fever, chills, or abdominal pain. Patient states he previously was on home O2 but was discontinued in 2021. In the ED pt was hypertensive up to 157/67 and hypoxic as low as 88% on RA. Labs were significant for leukocytosis of 11.7 otherwise grossly unremarkable and around baseline for patient. Stable H&H. No significant electrolyte abnormalities. Renal and hepatic function WNL. Troponin negative. BNP WNL at 97. UA negative for UTI. Tested negative for flu, COVID, RSV. CXR showed right upper lobe pneumonia. EKG demonstrated normal sinus rhythm without evidence of significant ST elevations or depressions. Pt was treated with DuoNebs, ceftriaxone, and azithromycin. Pt will be admitted to the hospital for treatment and further evaluation of acute hypoxic respiratory failure in the setting of community-acquired pneumonia. Review of Systems Review of Systems: Negative except for that which is stated in the HPI. [facility] Medical History Chest pain in adult Class 2 severe obesity with body mass index (BMI) of 35 to 39.9 with serious comorbidity Bilateral primary osteoarthritis of knee Osteoarthritis of right knee Diabetes mellitus type 2, uncontrolled COPD exacerbation Arthritis of both knees Chronic pain syndrome Allergic rhinitis VIDA on CPAP COPD (chronic obstructive pulmonary disease) Lumbar radiculopathy Allergic rhinitis Asthma Benign prostatic hyperplasia Back pain Sleep apnea HTN (hypertension) Lumbar spondylosis Tendon tear Depression Arthritis Asthma Crohn disease Family History Father No problems noted. Mother No problems noted. Surgical History H/O colonoscopy Social History Household Members: Spouse Housing: House Do you presently have visiting nurse or other home services: No Alcohol intake: never Comment: pain 3-4 left knee and buttock Patient Tobacco Use Status: Former Tobacco user Smoked in Last 30 Days: No e-Cigarette/Vaping Use: Never Used Second Hand Smoke Exposure: No Use of substances other than those prescribed or required for medical reasons: No Advance Directives: Yes Advance Directives on File: Yes Advance Directives Date on File: 07/07/24 Do you have a plan to hurt others: No Plan service: No Current occupational status: retired Cognitive needs: Yes (cane) Hearing needs: No Vision needs: Yes (Glasses) Meds Allergies Allergy/AdvReac Type Severity Reaction Status Date / Time hydrocortisone Allergy Severe SWELLING Verified 09/21/24 11:05 [HYDROCORTISONE] NSAIDS (Non-Steroidal Allergy Severe BLEEDING Verified 09/21/24 11:05 Anti-Inflamma [NSAIDS (NON-STEROIDAL ANTI-INFLAMMA] aspirin Allergy Unknown bleeding Verified 09/21/24 11:05 doxycycline AdvReac Severe in-effectiv Verified 09/21/24 11:05 e Active Medications: Current Medications Azithromycin 500 mg/ Sodium (Chloride) 250 mls @ 125 mls/hr IV ONCE ONE Stop: 09/21/24 16:44 Last Admin: 09/21/24 15:35 Dose: 125 mls/hr Home Medications ?Medication ?Instructions ?Recorded ?Confirmed ?Last Taken ?Type latanoprost 0.005 % eye drops 1 drp ophthalmic-Left BEDTIME 11/17/21 09/21/24 09/21/24 History brimonidine 0.2 % eye drops 1 drp ophthalmic-Left BID 05/18/23 09/21/24 09/21/24 History albuterol sulfate 90 mcg/actuation 2 puff inhalation Q4H PRN for 06/19/24 09/21/24 06/19/24 08:00 History aerosol inhaler wheezing insulin glargine 100 unit/mL (3 30 unit subcut BEDTIME 06/19/24 09/21/24 09/20/24 History mL) subcutaneous pen (Lantus Solostar U-100 Insulin) timolol maleate 0.5 % eye drops 1 drp ophthalmic-Left BID 06/24/24 09/21/24 09/21/24 History clonazepam 0.5 mg tablet 0.5 mg PO DAILY 09/21/24 09/21/24 09/21/24 History clonazepam 0.5 mg tablet 0.5 mg PO DAILY@1700 09/21/24 09/21/24 09/21/24 History gabapentin 300 mg capsule 300 mg BID 09/21/24 09/21/24 09/21/24 History insulin lispro 100 unit/mL 20 unit subcut TIDAC PRN Blood 09/21/24 09/21/24 09/20/24 History subcutaneous pen (Humalog KwikPen Sugar Levels (U-100) Insulin) venlafaxine 150 mg 150 mg PO BID 09/21/24 09/21/24 09/21/24 History capsule,extended release 24 hr Physical Exam Vital Signs and Narrative: Vital Signs: Last Vital Signs Temp 98.3 F 09/21/24 15:18 Pulse 75 09/21/24 15:18 Resp 16 09/21/24 15:18 BP 151/74 H 09/21/24 15:18 Pulse Ox 88 L 09/21/24 15:45 O2 Del Method Room Air 09/21/24 15:45 BMI result Body Mass Index 35.0 General: AOx3, no acute distress Resp: CTA bilaterally CVS: S1, S2, RRR GI: +BS, NT, no distention Skin: Warm, dry Neuro: Cranial nerves II-XII grossly intact bilaterally. Motor grossly intact bilaterally Extremities: No edema Psych: Appropriate affect Results Labs 09/21/24 11:15 09/21/24 11:15 Labs: Laboratory Results - last 24 hr 09/21/24 09/21/24 11:15 12:38 MCV 85.8 MCH 27.8 MCHC 32.4 RDW 13.4 Plt Count 281 D MPV 10.7 Immature Gran % (Auto) 0.4 Neut % (Auto) 85.7 H Lymph % (Auto) 6.5 L [place] % (Auto) 4.9 Eos % (Auto) 2.1 Baso % (Auto) 0.4 Lymph # (Auto) 0.8 L [place] # (Auto) 0.6 Eos # (Auto) 0.3 Baso # (Auto) 0.1 Abs Immat Gran (auto) 0.05 H Absolute Neuts (auto) 10.0 H Absolute Nucleated RBC 0.000 Nucleated RBC % (auto) 0.0 PT 14.8 H INR 1.3 H Anion Gap 12 Estim Creat Clear Calc 91.4 Estimated GFR > 60 Random Glucose 168 H Calcium 9.4 Magnesium 1.7 Total Bilirubin 0.6 AST 18 ALT 9 Alkaline Phosphatase 97 Troponin I High Sens < 2.7 B-Natriuretic Peptide 97 Total Protein 6.7 Albumin 3.3 L Lipase 14 Urine Color Yellow Urine Appearance Clear Urine pH 5.5 Ur Specific [place] 1.025 Urine Protein Trace Urine Glucose (UA) Negative Urine Ketones Trace Urine Blood Small (1+) H Urine Nitrite Negative Ur Leukocyte Esterase Negative Urine RBC 0-2 Urine WBC 0-5 Ur Squamous Epith Cells 0-2 Urine Bacteria None Seen Hyaline Casts 0-2 Influenza Type A (PCR) NEGATIVE Influenza Type B (PCR) NEGATIVE RSV RNA Qual (PCR) NEGATIVE SARS-CoV-2 RNA (RT-PCR) NEGATIVE Imaging Radiologist's Impressions: Impressions Chest X-Ray 09/21/24 11:05 IMPRESSION: Right upper lobe pneumonia. Follow-up to clearing. Electronically signed by: Tramaine Avery MD 09/21/2024 02:21 PM EST Assessment and Plan (1) Hypoxia: Status: Acute (2) Right upper lobe pneumonia: Status: Acute Plan Pt is a 74-year-old male with a PMH significant for?asthma/COPD overlap syndrome not on home O2, HTN, insulin-dependent type 2 diabetes, peripheral neuropathy, GERD, VIDA on CPAP, and mood disorder who presents to the ED with?SOB, SIMON, and dizziness x2-3 days. Pt will be admitted to the hospital for treatment and further evaluation of acute hypoxic respiratory failure in the setting of community-acquired pneumonia. Acute hypoxic respiratory failure in the setting of community-acquired pneumonia Patient desatting into the 80s, with SOB, SIMON, N/V, lightheadedness, dizziness, productive coughx2-3 days CXR showing right upper lobe pneumonia No sepsis: No fever, tachycardia, tachypnea, or leukocytosis Will treat with ceftriaxone and azithromycin, started 09/21/2024 DuoNebs, guaifenesin Titrate supplemental O2 >92, wean as tolerated Consider home O2 evaluation prior to discharge Insulin-dependent type 2 diabetes Sliding-scale insulin, Lantus Diabetic diet HTN Well-controlled on current therapies Continue metoprolol Peripheral neuropathy Continue gabapentin GERD Continue PPI Mood disorder Continue venlafaxine Full Code Attending:?Dr. Moore DVT Prophylaxis: Lovenox Pt will require a hospitalization of at least two nights for treatment of?acute hypoxic respiratory failure in the setting of community acquired pneumonia that will require administration of supplemental oxygen, breathing treatments, and IV antibiotics. Quality Stroke Does the patient have a stroke diagnosis?: No VTE Prior VTE?: No VTE Risk Level:: Medical - moderate - high VTE Device Contraindication: Treatment Not Indicated VTE Drug Contraindication: N/A - Med Ordered
--- NOTE | 2024-09-21 16:40 | PHA.MEDREC ---
Addendum entered by Amado Duron [facility] 09/21/24 16:55: Med rec reviewed Original Note: Pharmacy Consult ? Medication Reconciliation Pharmacy has completed the medication reconciliation. Spoke with patient and confirmed he confirmed his medications. Patient stated his Dr took him off his Amlodipine 5mg tab 2 months ago. He confirmed he stopped taking the Bupropion HCl 100mg tab about 2-3 days ago due to him not feeling great while taking it. He claims he is still taking the Lantus Solostar and is injecting 30 units at bedtime. He also states he is taking Inslin Lispro and claims he is doing 20 units TIDAC as needed for his Blood Sugar Levels but took it last night he claims. He also confirmed he is taking Venlafaxine 150mg tab 1 BID but looking in claims he got Venlafaxine 75mg tabs taken once in the morning on 07/27 for 90 days and a 150mg tab taken once at bedtime on 08/20 for 31 days, when I asked about the 75mg tabs he claims he's taking 150mg tabs BID. I tried calling his spouse to confirm those medications but the phone number on file is no longer active. He claims he took his medications this morning.
[2024-09-21 17:28] LABS: Glucose, Whole Blood 131 mg/dL (60-115)
[2024-09-21] MEDS: Enoxaparin Sodium 40 MG/0.4 ML SYRINGE SUBCUT (17:29)
[2024-09-21] MEDS: clonazePAM 0.5 MG TABLET PO (17:30)
[2024-09-21] MEDS: Insulin Glargine,Hum.rec.anlog 100 UNIT/ML 10 ML VIAL 21 UNIT SUBCUT (19:56)
[2024-09-21] MEDS: Zolpidem Tartrate 5 MG TABLET PO (19:56)
[2024-09-21] MEDS: Venlafaxine HCl ER 150 MG CAP.ER.24H PO (19:56)
[2024-09-21 20:03] LABS: Glucose, Whole Blood 136 mg/dL (60-115)
[2024-09-21] MEDS: Albuterol/Iprat 2.5/0.5MG 3 ML AMPUL.NEB INHALE (20:06)
[2024-09-21] MEDS: 0.9 % Sodium Chloride Flush 3 ML SYRINGE IVFLUSH (22:33)
--- NOTE | 2024-09-21 23:42 | PC.NURSE ---
Assumed care of patient at 2200, patient alert and oriented, has been independent in room, has been refusing bed alarm per previous shift report. Patient with a steady gait, educated patient on calling for assistance when necessary.
[2024-09-22] VITALS (9 sets, daily range): BP systolic 146–174; BP diastolic 69–80; PULSE 56–80; RESP 16–18; TEMP 36.2–37.1; O2SAT 90–96
[2024-09-22] MEDS: Omeprazole 20 MG CAPSULE.DR PO (05:41)
[2024-09-22] MEDS: guaiFENesin DM 200/20/10 ML 10 ML SYRUP PO ×2 (05:44→16:28)
[2024-09-22 07:24] LABS: Glucose, Whole Blood 82 mg/dL (60-115)
[2024-09-22] MEDS: Albuterol/Iprat 2.5/0.5MG 3 ML AMPUL.NEB INHALE ×4 (08:02→19:41)
[2024-09-22] MEDS: Metoprolol Succinate ER 50 MG TAB.ER.24H PO (08:32)
[2024-09-22] MEDS: Venlafaxine HCl ER 150 MG CAP.ER.24H PO ×2 (08:32→20:31)
[2024-09-22] MEDS: clonazePAM 0.5 MG TABLET PO ×2 (08:32→16:28)
[2024-09-22] MEDS: timoloL maleate 0.5 % Oph Sol 5 ML DRBTL 1 DROP EYE-LEFT ×2 (08:33→20:38)
[2024-09-22] MEDS: 0.9 % Sodium Chloride Flush 3 ML SYRINGE IVFLUSH ×2 (08:33→20:37)
[2024-09-22] MEDS: Brimonidine Tartrate 0.2% Oph 5 ML BOTTLE 1 DROP EYE-LEFT ×2 (08:33→20:39)
--- NOTE | 2024-09-22 10:58 | HO.PM.IMPN ---
Subjective Subjective Date of Service: 09/22/24 Interval History: coughing with sputum wheezing afebrile Review of Systems Review of Systems: Yes all other systems are reviewed and are negative Physical Exam Vital Signs: Vital Signs: Last Vital Signs Temp 98.7 F 09/22/24 08:00 Pulse 72 09/22/24 08:02 Resp 18 09/22/24 08:02 BP 146/69 H 09/22/24 08:00 Pulse Ox 94 09/22/24 08:00 O2 Del Method Nasal Cannula 09/22/24 08:00 O2 Flow Rate 2 09/22/24 08:00 BMI result Body Mass Index 35.0 Gen: in no acute distress HEENT: sclera anicteric, moist mucus membranes Neck: supple Lungs: diffuse expiratory wheezes Heart: regular rate and rhythm, no murmurs Abd: soft, non-tender, non-distended Ext: no edema Skin: warm/well-perfused Neuro: alert and oriented x3, no focal findings Psych: appropriate affect Objective Data Active Medications Acetaminophen (Acetaminophen 325 Mg Tablet) 650 mg PO Q6H PRN PRN Reason: Pain, Mild (Pain Scale 1-3), fever or headache Albuterol/Ipratropium (Albuterol/Iprat 2.5/0.5mg 3 Ml Ampul.Neb) 3 ml INHALE RQ4H WHILE AWAKE [facility] Last Admin: 09/22/24 08:02 Dose: 3 ml Documented By: MARGAUX Albuterol/Ipratropium (Albuterol/Iprat 2.5/0.5mg 3 Ml Ampul.Neb) 3 ml INHALE RQ4H WHILE AWAKE PRN PRN Reason: Shortness of Breath/Wheezing Brimonidine Tartrate (Brimonidine Tartrate 0.2% Oph 5 Ml Bottle) 1 drop EYE-LEFT BID [facility] Last Admin: 09/22/24 08:33 Dose: 1 drop Documented By: EVERT Calcium Carbonate (Calcium Carbonate 750 Mg Tab.Chew) 750 mg PO Q4H PRN PRN Reason: Heartburn Ceftriaxone Sodium (Ceftriaxone Sodium 1 Gm Vial) 1 gm IVPUSH Q24H [facility] Clonazepam (Clonazepam 0.5 Mg Tablet) 0.5 mg PO DAILY [facility] Last Admin: 09/22/24 08:32 Dose: 0.5 mg Documented By: EVERT Clonazepam (Clonazepam 0.5 Mg Tablet) 0.5 mg PO DAILY@1700 [facility] Last Admin: 09/21/24 17:30 Dose: 0.5 mg Documented By: FREDRICK Enoxaparin Sodium (Enoxaparin Sodium 40 Mg/0.4 Ml Syringe) 40 mg SUBCUT Q24H [facility] Last Admin: 09/21/24 17:29 Dose: 40 mg Documented By: FREDRICK Gabapentin (Gabapentin 300 Mg Capsule) 300 mg PO BID [facility] Last Admin: 09/22/24 08:32 Dose: 300 mg Documented By: EVERT Glucose (Glucose Gel 15 Gm Gel..Gram.) 15 gm PO Q15M PRN; Protocol PRN Reason: per Hypoglycemia Standing Ord. Guaifenesin/Dextromethorphan (Guaifenesin Dm 200/20/10 Ml 10 Ml Syrup) 10 ml PO Q6H PRN PRN Reason: Cough Last Admin: 09/22/24 05:44 Dose: 10 ml Documented By: JASON Azithromycin 500 mg/ Sodium (Chloride) 250 mls @ 125 mls/hr IV Q24H [facility] Dextrose (D10) 250 mls @ 750 mls/hr IV Q15M PRN; Protocol PRN Reason: per Hypoglycemia Standing Ord. Insulin Glargine (Insulin Glargine,Hum.Rec.Anlog 100 Unit/Ml 10 Ml Vial) 21 unit SUBCUT BEDTIME [facility] Last Admin: 09/21/24 19:56 Dose: 21 unit Documented By: ZOILA Insulin Human Lispro (Insulin Lispro 100 Unit/Ml 3 Ml Vial) 0 unit SUBCUT QIDACHS [facility]; Protocol Last Admin: 09/22/24 07:26 Dose: Not Given Documented By: EVERT Non-Admin Reason: No Insulin Coverage Latanoprost (Latanoprost 0.005 % Ophth Franny 2.5 Ml Drops) 1 drop EYE-LEFT BEDTIME [facility] Last Admin: 09/21/24 22:17 Dose: Not Given Documented By: ZOILA Non-Admin Reason: Med Not Available Magnesium Hydroxide (Milk Of Magnesia 30 Ml Oral.Susp) 30 ml PO DAILY PRN PRN Reason: Constipation Melatonin (Melatonin 3 Mg Tablet) 6 mg PO BEDTIME PRN PRN Reason: Insomnia Metoprolol Succinate (Metoprolol Succinate Er 50 Mg Tab.Er.24h) 50 mg PO DAILY [facility]; Protocol Last Admin: 09/22/24 08:32 Dose: 50 mg Documented By: EVERT Omeprazole (Omeprazole 20 Mg Capsule.Dr) 20 mg PO DAILY@0630 [facility] Last Admin: 09/22/24 05:41 Dose: 20 mg Documented By: JASON Ondansetron HCl (Ondansetron Hcl 4 Mg/2 Ml Vial) 4 mg IVPUSH Q8H PRN PRN Reason: Nausea and Vomiting Sodium Chloride (0.9 % Sodium Chloride Flush 3 Ml Syringe) 3 ml IVFLUSH QSHIFT [facility] Last Admin: 09/22/24 08:33 Dose: 3 ml Documented By: EVERT Timolol Maleate (Timolol Maleate 0.5 % Oph Franny 5 Ml Drbtl) 1 drop EYE-LEFT BID [facility] Last Admin: 09/22/24 08:33 Dose: 1 drop Documented By: EVERT Venlafaxine HCl (Venlafaxine Hcl Er 150 Mg Cap.Er.24h) 150 mg PO BID [facility] Last Admin: 09/22/24 08:32 Dose: 150 mg Documented By: EVERT Zolpidem Tartrate (Zolpidem Tartrate 5 Mg Tablet) 5 mg PO BEDTIME [facility] Last Admin: 09/21/24 19:56 Dose: 5 mg Documented By: ZOILA Labs 09/21/24 11:15 09/21/24 11:15 Labs: Laboratory Results - last 24 hr 09/21/24 09/21/24 09/21/24 11:15 12:38 17:24 MCV 85.8 MCH 27.8 MCHC 32.4 RDW 13.4 Plt Count 281 D MPV 10.7 Immature Gran % (Auto) 0.4 Neut % (Auto) 85.7 H Lymph % (Auto) 6.5 L [place] % (Auto) 4.9 Eos % (Auto) 2.1 Baso % (Auto) 0.4 Lymph # (Auto) 0.8 L [place] # (Auto) 0.6 Eos # (Auto) 0.3 Baso # (Auto) 0.1 Abs Immat Gran (auto) 0.05 H Absolute Neuts (auto) 10.0 H Absolute Nucleated RBC 0.000 Nucleated RBC % (auto) 0.0 PT 14.8 H INR 1.3 H Anion Gap 12 Estim Creat Clear Calc 91.4 Estimated GFR > 60 POC Glucose 131 H Random Glucose 168 H Calcium 9.4 Magnesium 1.7 Total Bilirubin 0.6 AST 18 ALT 9 Alkaline Phosphatase 97 Troponin I High Sens < 2.7 B-Natriuretic Peptide 97 Total Protein 6.7 Albumin 3.3 L Lipase 14 Urine Color Yellow Urine Appearance Clear Urine pH 5.5 Ur Specific [place] 1.025 Urine Protein Trace Urine Glucose (UA) Negative Urine Ketones Trace Urine Blood Small (1+) H Urine Nitrite Negative Ur Leukocyte Esterase Negative Urine RBC 0-2 Urine WBC 0-5 Ur Squamous Epith Cells 0-2 Urine Bacteria None Seen Hyaline Casts 0-2 Influenza Type A (PCR) NEGATIVE Influenza Type B (PCR) NEGATIVE RSV RNA Qual (PCR) NEGATIVE SARS-CoV-2 RNA (RT-PCR) NEGATIVE 09/21/24 09/22/24 19:58 07:12 MCV MCH MCHC RDW Plt Count MPV Immature Gran % (Auto) Neut % (Auto) Lymph % (Auto) [place] % (Auto) Eos % (Auto) Baso % (Auto) Lymph # (Auto) [place] # (Auto) Eos # (Auto) Baso # (Auto) Abs Immat Gran (auto) Absolute Neuts (auto) Absolute Nucleated RBC Nucleated RBC % (auto) PT INR Anion Gap Estim Creat Clear Calc Estimated GFR POC Glucose 136 H 82 Random Glucose Calcium Magnesium Total Bilirubin AST ALT Alkaline Phosphatase Troponin I High Sens B-Natriuretic Peptide Total Protein Albumin Lipase Urine Color Urine Appearance Urine pH Ur Specific [place] Urine Protein Urine Glucose (UA) Urine Ketones Urine Blood Urine Nitrite Ur Leukocyte Esterase Urine RBC Urine WBC Ur Squamous Epith Cells Urine Bacteria Hyaline Casts Influenza Type A (PCR) Influenza Type B (PCR) RSV RNA Qual (PCR) SARS-CoV-2 RNA (RT-PCR) Assessment and Plan (1) Right upper lobe pneumonia: Status: Acute Plan d2 for 74yo M with loni/COPD overlap not on home O2, HTN, DM2, peripheral neuropathy, GERD, VIDA on CPAP, mood disorder presenting with 3d of dyspnea and found to have hypoxia due to CAP acute respiratory failure with hypoxia due to CAP and asthma/COPD exacerbation - wean O2 as tolerated - trend PCT, follow BCx, send urinary antigens for Legionella and pneumococcus - 09/21- ceftriaxone + azithromycin - start methylprednisolone and continue neb treatments DM2 - basal-bolus insulin HTN - continue metoprolol succinate mood disorder - continue venlafaxine + zolpidem + clonazepam peripheral neuropathy - continue gabapentin VTE prophylaxis - enoxaparin dispo - eventual home In my clinical judgment, the patient requires continued inpatient hospitalization for the following reasons: IV ABX, hypoxia Total time managing care of this patient today: 40 minutes. Quality Stroke Does the patient have a stroke diagnosis?: No VTE Prior VTE?: No VTE Risk Level:: Medical - moderate - high VTE Device Contraindication: Treatment Not Indicated VTE Drug Contraindication: N/A - Med Ordered
[2024-09-22 11:19] LABS: Glucose, Whole Blood 121 mg/dL (60-115)
[2024-09-22 11:29] LABS: Hematocrit 36.3 % (42.0-52.0); Mean Corpuscular HGB Conc 33.1 g/dl (31.0-36.0); Mean Corpuscular Hemoglobin 28.6 pg (27.0-33.0); Mean Corpuscular Volume 86.6 fL (80.0-98.0); Mean Platelet Volume 10.5 fL (9.4-12.4); Platelet Count 256 X10*3/uL (160-400); Red Blood Count 4.19 X10*6/uL (4.60-5.80); Red Cell Distribution Width 13.4 % (11.0-16.0)
[2024-09-22] MEDS: methylPREDNISolone Sod Succ 40 MG/ML VIAL IVPUSH (11:41)
[2024-09-22 12:08] LABS: Procalcitonin 0.04 ng/mL
[2024-09-22] MEDS: Azithromycin 500 MG in 0.9 % Sodium Chloride 250 ML 125 MG IV (14:27)
[2024-09-22] MEDS: cefTRIAXone sodium 1 GM VIAL IVPUSH (14:27)
[2024-09-22 16:16] LABS: Glucose, Whole Blood 178 mg/dL (60-115)
[2024-09-22] MEDS: Insulin Lispro 100 UNIT/ML 3 ML VIAL SUBCUT ×2 (16:28→20:32)
--- NOTE | 2024-09-22 16:32 | MHC.CM.PN ---
PT REPORTS HE LIVES WITH HIS AND IS INDEPENDENT WITH CARE HE HAS NO SERVICES AND USES A CANE PRN COPY OF HCP REQUESTED, HE REPORTS HIS IS HIS AGENT PCP; MARIA TERESA DENIS IMM DELIVERED DCP: HOME NO SERVICES VIA PRIVATE TRANSPORT
[2024-09-22] MEDS: Enoxaparin Sodium 40 MG/0.4 ML SYRINGE SUBCUT (17:06)
[2024-09-22 20:21] LABS: Glucose, Whole Blood 233 mg/dL (60-115)
[2024-09-22] MEDS: Zolpidem Tartrate 5 MG TABLET PO (20:31)
[2024-09-22] MEDS: Insulin Glargine,Hum.rec.anlog 100 UNIT/ML 10 ML VIAL 21 UNIT SUBCUT (20:32)
[2024-09-22] MEDS: Latanoprost 0.005 % Ophth Sol 2.5 ML DROPS 1 DROP EYE-LEFT (20:37)
[2024-09-23] VITALS (8 sets, daily range): BP systolic 140–190; BP diastolic 67–80; PULSE 55–81; RESP 17–18; TEMP 36–36.2; O2SAT 90–96
[2024-09-23] MEDS: Omeprazole 20 MG CAPSULE.DR PO (06:03)
[2024-09-23] MEDS: Albuterol/Iprat 2.5/0.5MG 3 ML AMPUL.NEB INHALE ×4 (07:06→20:22)
[2024-09-23 07:46] LABS: Glucose, Whole Blood 144 mg/dL (60-115)
[2024-09-23] MEDS: Venlafaxine HCl ER 150 MG CAP.ER.24H PO ×2 (07:59→20:28)
[2024-09-23] MEDS: Brimonidine Tartrate 0.2% Oph 5 ML BOTTLE 1 DROP EYE-LEFT ×2 (07:59→20:30)
[2024-09-23] MEDS: clonazePAM 0.5 MG TABLET PO ×2 (07:59→16:44)
[2024-09-23] MEDS: guaiFENesin DM 200/20/10 ML 10 ML SYRUP PO ×2 (07:59→20:28)
[2024-09-23] MEDS: 0.9 % Sodium Chloride Flush 3 ML SYRINGE IVFLUSH ×3 (08:00→20:31)
[2024-09-23] MEDS: timoloL maleate 0.5 % Oph Sol 5 ML DRBTL 1 DROP EYE-LEFT ×2 (08:00→20:30)
[2024-09-23] MEDS: Metoprolol Succinate ER 50 MG TAB.ER.24H PO (08:31)
--- NOTE | 2024-09-23 09:01 | HO.PM.IMPN ---
Subjective Subjective Date of Service: 09/23/24 Interval History: coughing dyspnea/wheezing improved afebrile Review of Systems Review of Systems: Yes all other systems are reviewed and are negative Physical Exam Vital Signs: Vital Signs: Last Vital Signs Temp 96.8 F 09/23/24 08:00 Pulse 71 09/23/24 08:00 Resp 18 09/23/24 08:00 BP 154/67 H 09/23/24 08:00 Pulse Ox 94 09/23/24 08:00 O2 Del Method Room Air 09/23/24 02:36 O2 Flow Rate 2 09/22/24 19:18 BMI result Body Mass Index 35.0 Gen: in no acute distress HEENT: sclera anicteric, moist mucus membranes Neck: supple Lungs: diminished Heart: regular rate and rhythm, no murmurs Abd: soft, non-tender, non-distended Ext: no edema Skin: warm/well-perfused Neuro: alert and oriented x3, no focal findings Psych: appropriate affect Objective Data Active Medications Acetaminophen (Acetaminophen 325 Mg Tablet) 650 mg PO Q6H PRN PRN Reason: Pain, Mild (Pain Scale 1-3), fever or headache Albuterol/Ipratropium (Albuterol/Iprat 2.5/0.5mg 3 Ml Ampul.Neb) 3 ml INHALE RQ4H WHILE AWAKE [facility] Last Admin: 09/23/24 07:06 Dose: 3 ml Documented By: MARGAUX Albuterol/Ipratropium (Albuterol/Iprat 2.5/0.5mg 3 Ml Ampul.Neb) 3 ml INHALE RQ4H WHILE AWAKE PRN PRN Reason: Shortness of Breath/Wheezing Brimonidine Tartrate (Brimonidine Tartrate 0.2% Oph 5 Ml Bottle) 1 drop EYE-LEFT BID [facility] Last Admin: 09/23/24 07:59 Dose: 1 drop Documented By: EVERT Calcium Carbonate (Calcium Carbonate 750 Mg Tab.Chew) 750 mg PO Q4H PRN PRN Reason: Heartburn Ceftriaxone Sodium (Ceftriaxone Sodium 1 Gm Vial) 1 gm IVPUSH Q24H [facility] Last Admin: 09/22/24 14:27 Dose: 1 gm Documented By: EVERT Clonazepam (Clonazepam 0.5 Mg Tablet) 0.5 mg PO DAILY [facility] Last Admin: 09/23/24 07:59 Dose: 0.5 mg Documented By: EVERT Clonazepam (Clonazepam 0.5 Mg Tablet) 0.5 mg PO DAILY@1700 [facility] Last Admin: 09/22/24 16:28 Dose: 0.5 mg Documented By: EVERT Enoxaparin Sodium (Enoxaparin Sodium 40 Mg/0.4 Ml Syringe) 40 mg SUBCUT Q24H [facility] Last Admin: 09/22/24 17:06 Dose: 40 mg Documented By: JUDY Glucose (Glucose Gel 15 Gm Gel..Gram.) 15 gm PO Q15M PRN; Protocol PRN Reason: per Hypoglycemia Standing Ord. Guaifenesin/Dextromethorphan (Guaifenesin Dm 200/20/10 Ml 10 Ml Syrup) 10 ml PO Q6H PRN PRN Reason: Cough Last Admin: 09/23/24 07:59 Dose: 10 ml Documented By: EVERT Azithromycin 500 mg/ Sodium (Chloride) 250 mls @ 125 mls/hr IV Q24H [facility] Last Infusion: 09/22/24 17:28 Dose: Infused Documented By: EVERT Dextrose (D10) 250 mls @ 750 mls/hr IV Q15M PRN; Protocol PRN Reason: per Hypoglycemia Standing Ord. Insulin Glargine (Insulin Glargine,Hum.Rec.Anlog 100 Unit/Ml 10 Ml Vial) 21 unit SUBCUT BEDTIME [facility] Last Admin: 09/22/24 20:32 Dose: 21 unit Documented By: MAURI Insulin Human Lispro (Insulin Lispro 100 Unit/Ml 3 Ml Vial) 0 unit SUBCUT QIDACHS [facility]; Protocol Last Admin: 09/23/24 07:52 Dose: Not Given Documented By: EVERT Non-Admin Reason: No Insulin Coverage Latanoprost (Latanoprost 0.005 % Ophth Franny 2.5 Ml Drops) 1 drop EYE-LEFT BEDTIME [facility] Last Admin: 09/22/24 20:37 Dose: 1 drop Documented By: MAURI Magnesium Hydroxide (Milk Of Magnesia 30 Ml Oral.Susp) 30 ml PO DAILY PRN PRN Reason: Constipation Melatonin (Melatonin 3 Mg Tablet) 6 mg PO BEDTIME PRN PRN Reason: Insomnia Methylprednisolone Sodium Succinate (Methylprednisolone Sod Succ 40 Mg/Ml Vial) 40 mg IVPUSH Q24H [facility] Last Admin: 09/22/24 11:41 Dose: 40 mg Documented By: EVERT Metoprolol Succinate (Metoprolol Succinate Er 50 Mg Tab.Er.24h) 50 mg PO DAILY [facility]; Protocol Last Admin: 09/23/24 08:31 Dose: 50 mg Documented By: EVERT Omeprazole (Omeprazole 20 Mg Capsule.Dr) 20 mg PO DAILY@0630 [facility] Last Admin: 09/23/24 06:03 Dose: 20 mg Documented By: MAURI Ondansetron HCl (Ondansetron Hcl 4 Mg/2 Ml Vial) 4 mg IVPUSH Q8H PRN PRN Reason: Nausea and Vomiting Sodium Chloride (0.9 % Sodium Chloride Flush 3 Ml Syringe) 3 ml IVFLUSH QSHIFT [facility] Last Admin: 09/23/24 08:00 Dose: 3 ml Documented By: EVERT Timolol Maleate (Timolol Maleate 0.5 % Oph Franny 5 Ml Drbtl) 1 drop EYE-LEFT BID [facility] Last Admin: 09/23/24 08:00 Dose: 1 drop Documented By: EVERT Venlafaxine HCl (Venlafaxine Hcl Er 150 Mg Cap.Er.24h) 150 mg PO BID [facility] Last Admin: 09/23/24 07:59 Dose: 150 mg Documented By: EVERT Zolpidem Tartrate (Zolpidem Tartrate 5 Mg Tablet) 5 mg PO BEDTIME [facility] Last Admin: 09/22/24 20:31 Dose: 5 mg Documented By: MAURI Labs 09/22/24 11:21 09/21/24 11:15 Labs: Laboratory Results - last 24 hr 09/22/24 09/22/24 09/22/24 11:08 11:21 16:10 MCV 86.6 MCH 28.6 MCHC 33.1 RDW 13.4 Plt Count 256 MPV 10.5 Absolute Nucleated RBC 0.000 Nucleated RBC % (auto) 0.0 POC Glucose 121 H 178 H Procalcitonin 0.04 09/22/24 09/23/24 20:14 07:39 MCV MCH MCHC RDW Plt Count MPV Absolute Nucleated RBC Nucleated RBC % (auto) POC Glucose 233 H 144 H Procalcitonin Microbiology Microbiology Results: Microbiology 09/21/24 15:34 Blood Culture - Preliminary Blood - Venous No growth after 24 hours. 09/21/24 15:33 Blood Culture - Preliminary Blood - Venous No growth after 24 hours. 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, HTN, DM2, peripheral neuropathy, GERD, VIDA on CPAP, mood disorder presenting with 3d of dyspnea and found to have hypoxia due to CAP acute respiratory failure with hypoxia due to CAP and asthma/COPD exacerbation - wean O2 as tolerated - PCT low, BCx negative to date, urinary antigens for Legionella and pneumococcus pending - 09/21- ceftriaxone + azithromycin - methylprednisolone 09/22- to change to prednisone upon discharge; continue neb treatments DM2 - basal-bolus insulin HTN - continue metoprolol succinate mood disorder - continue venlafaxine + zolpidem + clonazepam peripheral neuropathy - continue gabapentin VTE prophylaxis - enoxaparin dispo - PT eval tomorrow In my clinical judgment, the patient requires continued inpatient hospitalization for the following reasons: IV ABX, hypoxia Total time managing care of this patient today: 40 minutes. Quality Stroke Does the patient have a stroke diagnosis?: No VTE Prior VTE?: No VTE Risk Level:: Medical - moderate - high VTE Device Contraindication: Treatment Not Indicated VTE Drug Contraindication: N/A - Med Ordered
[2024-09-23 11:41] LABS: Glucose, Whole Blood 100 mg/dL (60-115)
[2024-09-23] MEDS: methylPREDNISolone Sod Succ 40 MG/ML VIAL IVPUSH (11:54)
[2024-09-23] MEDS: cefTRIAXone sodium 1 GM VIAL IVPUSH (14:40)
[2024-09-23] MEDS: Azithromycin 500 MG TABLET PO (14:54)
[2024-09-23 16:17] LABS: Glucose, Whole Blood 163 mg/dL (60-115)
[2024-09-23] MEDS: Insulin Lispro 100 UNIT/ML 3 ML VIAL SUBCUT ×2 (16:44→20:28)
[2024-09-23] MEDS: Enoxaparin Sodium 40 MG/0.4 ML SYRINGE SUBCUT (17:13)
[2024-09-23 20:10] LABS: Glucose, Whole Blood 256 mg/dL (60-115)
[2024-09-23] MEDS: Zolpidem Tartrate 5 MG TABLET PO (20:28)
[2024-09-23] MEDS: Insulin Glargine,Hum.rec.anlog 100 UNIT/ML 10 ML VIAL 21 UNIT SUBCUT (20:30)
[2024-09-23] MEDS: Latanoprost 0.005 % Ophth Sol 2.5 ML DROPS 1 DROP EYE-LEFT (20:30)
[2024-09-24 07:35] LABS: Glucose, Whole Blood 75 mg/dL (60-115)
[2024-09-24 07:40] VITALS: BP 150/90; PULSE 56; RESP 18; TEMP 36.9; O2SAT 95
[2024-09-24] MEDS: Albuterol/Iprat 2.5/0.5MG 3 ML AMPUL.NEB INHALE ×2 (07:41→11:11)
[2024-09-24 07:42] VITALS: PULSE 56; RESP 18; O2SAT 95
[2024-09-24 08:07] VITALS: PULSE 69
[2024-09-24] MEDS: Venlafaxine HCl ER 150 MG CAP.ER.24H PO (08:07)
[2024-09-24] MEDS: Metoprolol Succinate ER 50 MG TAB.ER.24H PO (08:07)
[2024-09-24] MEDS: Omeprazole 20 MG CAPSULE.DR PO (08:08)
[2024-09-24] MEDS: clonazePAM 0.5 MG TABLET PO (08:08)
[2024-09-24] MEDS: 0.9 % Sodium Chloride Flush 3 ML SYRINGE IVFLUSH (08:09)
[2024-09-24] MEDS: Lidocaine 4 % Patch ADH..PATCH 1 PATCH TRANSDERMA (09:28)
[2024-09-24] MEDS: oxyCODONE HCl Immed Release 5 MG TABLET PO (09:28)
[2024-09-24] MEDS: Brimonidine Tartrate 0.2% Oph 5 ML BOTTLE 1 DROP EYE-LEFT (09:29)
[2024-09-24] MEDS: timoloL maleate 0.5 % Oph Sol 5 ML DRBTL 1 DROP EYE-LEFT (09:29)
--- NOTE | 2024-09-24 09:29 | W.MHC.F2F ---
Service Date Service Date: 09/24/24 Encounter Date of encounter: 09/24/24 Reasons for Services Signs and symptoms assessed: respiratory balance Reason for detention: medication management, medication treatment and teach disease management Reason for physical therapy: home safety and mobility, therapeutic exercises, gait/transfer training, assess need for DME, ADL training and energy conservation MD Overseeing Care: Hector Cherry Homebound: Leaving the home is medically contraindicated at this time without the asist of a device and/or another person due th the listed conditions above and below. Reason homebound: shortness of breath with minimal effort and weakness related to hospital stay Certification: Based on the above findings, I certify that this patient is confined to the home and needs intermittent detention care, physical therapy and/or speech therapy, or continues to need occupational therapy. The patient is under my care, and I have initiated the establishment of the plan of care. The patient will be followed by a physician who will periodically review the plan of care. Time Spent With Patient Time: Total time managing care of this patient today ____ minutes.
--- NOTE | 2024-09-24 09:31 | PM.DS ---
DS: Providers Provider Date of Service: 09/24/24 Date of admission: 09/21/24 16:49 Date of discharge: 09/24/24 Primary care physician: Hector Cherry MD DS: Diagnosis Discharge Diagnosis (1) Right upper lobe pneumonia: Status: Acute (2) COPD exacerbation: Status: Acute (3) Hypoxia: Status: Acute DS: Summary Hospital Course Hospital Course: From the history and physical by the admitting hospitalist, [place] VIVAS 09/21/24: Pt is a 74-year-old male with a PMH significant for?asthma/COPD overlap syndrome not on home O2, HTN, insulin-dependent type 2 diabetes, peripheral neuropathy, GERD, VIDA on CPAP, and mood disorder who presents to the ED with?SOB, SIMON, and dizziness x2-3 days. Has also been experiencing nausea, vomiting, pleuritic chest pain, weakness, and productive cough. No fever, chills, or abdominal pain. Patient states he previously was on home O2 but was discontinued in 2021. In the ED pt was hypertensive up to 157/67 and hypoxic as low as 88% on RA. Labs were significant for leukocytosis of 11.7 otherwise grossly unremarkable and around baseline for patient. Stable H&H. No significant electrolyte abnormalities. Renal and hepatic function WNL. Troponin negative. BNP WNL at 97. UA negative for UTI. Tested negative for flu, COVID, RSV. CXR showed right upper lobe pneumonia. EKG demonstrated normal sinus rhythm without evidence of significant ST elevations or depressions. Pt was treated with DuoNebs, ceftriaxone, and azithromycin. Pt will be admitted to the hospital for treatment and further evaluation of acute hypoxic respiratory failure in the setting of community-acquired pneumonia. 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 He was admitted to the medical-surgical unit and traeted with ceftriaxone and azithromycin along with methylprednisolone. He was weaned off of oxygen. Procalcitonin low and blood cultures negative. He was discharged on 3 days of cefuroxime, azithromycin, and prednisone. Time Attestation Discharge Coordination Time (in mins): 40 Quality: Safe Use of Opioids Does Pt have an Active Cancer Diagnosis on the Problem List?: No Quality: Stroke Does the patient have a stroke diagnosis?: No Physical Exam Vital Signs: Vital Signs: Last Vital Signs Temp 98.4 F 09/24/24 07:40 Pulse 69 09/24/24 08:07 Resp 18 09/24/24 07:42 BP 150/90 H 09/24/24 07:40 Pulse Ox 95 09/24/24 07:40 O2 Del Method Room Air 09/24/24 07:40 O2 Flow Rate 2 09/22/24 19:18 BMI result Body Mass Index 35.0 Gen: in no acute distress HEENT: sclera anicteric, moist mucus membranes Neck: supple Lungs: clear to auscultation bilaterally Heart: regular rate and rhythm, no murmurs Abd: soft, non-tender, non-distended Ext: no edema Skin: warm/well-perfused Neuro: alert and oriented x3, no focal findings Psych: appropriate affect DS: Data Data Completed and Pending Completed studies during hospitalization [Text1]: Laboratory Results WBC 7.0 X10*3/uL (4.8-10.8) 09/22/24 11:21 RBC 4.19 X10*6/uL (4.60-5.80) L 09/22/24 11:21 Hgb 12.0 g/dl (14.0-18.0) L 09/22/24 11:21 Hct 36.3 % (42.0-52.0) L 09/22/24 11:21 MCV 86.6 fL (80.0-98.0) 09/22/24 11:21 MCH 28.6 pg (27.0-33.0) 09/22/24 11:21 MCHC 33.1 g/dl (31.0-36.0) 09/22/24 11:21 RDW 13.4 % (11.0-16.0) 09/22/24 11:21 Plt Count 256 X10*3/uL (160-400) 09/22/24 11:21 MPV 10.5 fL (9.4-12.4) 09/22/24 11:21 Immature Gran % (Auto) 0.4 % (0.0-0.4) 09/21/24 11:15 Neut % (Auto) 85.7 % (45-73) H 09/21/24 11:15 Lymph % (Auto) 6.5 % (20-40) L 09/21/24 11:15 [place] % (Auto) 4.9 % (2-11) 09/21/24 11:15 Eos % (Auto) 2.1 % (0-4) 09/21/24 11:15 Baso % (Auto) 0.4 % (0-2) 09/21/24 11:15 Lymph # (Auto) 0.8 X10*3/uL (1.2-4.9) L 09/21/24 11:15 [place] # (Auto) 0.6 X10*3/uL (0.1-1.2) 09/21/24 11:15 Eos # (Auto) 0.3 X10*3/uL (0.0-0.4) 09/21/24 11:15 Baso # (Auto) 0.1 X10*3/uL (0.0-0.2) 09/21/24 11:15 Abs Immat Gran (auto) 0.05 X10*3/uL (0.00-0.03) H 09/21/24 11:15 Absolute Neuts (auto) 10.0 x10*3/uL (2.0-8.3) H 09/21/24 11:15 Absolute Nucleated RBC 0.000 X10*3/uL (0.0-0.012) 09/22/24 11:21 Nucleated RBC % (auto) 0.0 /100WBC (0.0-0.2) 09/22/24 11:21 PT 14.8 SEC (10.9-12.4) H 09/21/24 11:15 INR 1.3 (0.9-1.1) H 09/21/24 11:15 Sodium 136 mmol/L (135-145) 09/21/24 11:15 Potassium 3.8 mmol/L (3.3-5.1) 09/21/24 11:15 Chloride 102 mmol/L (96-108) 09/21/24 11:15 Carbon Dioxide 26 mmol/L (22-29) 09/21/24 11:15 Anion Gap 12 (12-20) 09/21/24 11:15 BUN 15 mg/dL (9-16) 09/21/24 11:15 Creatinine 0.83 mg/dL (0.5-1.4) 09/21/24 11:15 Estim Creat Clear Calc 91.4 09/21/24 11:15 Estimated GFR > 60 09/21/24 11:15 POC Glucose 75 mg/dL (60-115) 09/24/24 07:21 Random Glucose 168 mg/dL (60-115) H 09/21/24 11:15 Calcium 9.4 mg/dL (8.4-10.2) 09/21/24 11:15 Magnesium 1.7 mg/dL (1.6-2.6) 09/21/24 11:15 Total Bilirubin 0.6 mg/dL (0.0-1.0) 09/21/24 11:15 AST 18 U/L (5-37) 09/21/24 11:15 ALT 9 U/L (0-40) 09/21/24 11:15 Alkaline Phosphatase 97 U/L (39-117) 09/21/24 11:15 Troponin I High Sens < 2.7 ng/L (<3.5-35.0) 09/21/24 11:15 B-Natriuretic Peptide 97 pg/mL (<100) 09/21/24 11:15 Total Protein 6.7 g/dL (6.5-8.0) 09/21/24 11:15 Albumin 3.3 g/dL (3.5-5.0) L 09/21/24 11:15 Lipase 14 U/L (8-78) 09/21/24 11:15 Procalcitonin 0.04 ng/mL 09/22/24 11:21 Urine Color Yellow 09/21/24 12:38 Urine Appearance Clear 09/21/24 12:38 Urine pH 5.5 (5.0-9.0) 09/21/24 12:38 Ur Specific [place] 1.025 (1.005-1.025) 09/21/24 12:38 Urine Protein Trace mg/dL (Neg-Trace) 09/21/24 12:38 Urine Glucose (UA) Negative mg/dL (Negative) 09/21/24 12:38 Urine Ketones Trace mg/dL (Negative) 09/21/24 12:38 Urine Blood Small (1+) (Negative) H 09/21/24 12:38 Urine Nitrite Negative (Negative) 09/21/24 12:38 Ur Leukocyte Esterase Negative (Negative) 09/21/24 12:38 Urine RBC 0-2 /HPF (0-2) 09/21/24 12:38 Urine WBC 0-5 /HPF (0-5) 09/21/24 12:38 Ur Squamous Epith Cells 0-2 /HPF (0-2) 09/21/24 12:38 Urine Bacteria None Seen (None Seen) 09/21/24 12:38 Hyaline Casts 0-2 /LPF (0-2) 09/21/24 12:38 Influenza Type A (PCR) NEGATIVE (Negative) 09/21/24 11:15 Influenza Type B (PCR) NEGATIVE (Negative) 09/21/24 11:15 RSV RNA Qual (PCR) NEGATIVE (Negative) 09/21/24 11:15 SARS-CoV-2 RNA (RT-PCR) NEGATIVE (Negative) 09/21/24 11:15 Impressions Chest X-Ray 09/21/24 11:05 IMPRESSION: Right upper lobe pneumonia. Follow-up to clearing. Electronically signed by: Tramaine Avery MD 09/21/2024 02:21 PM [facility] [place] Discharge Plan Discharge Anticipated Discharge Date/Time: 09/24/24 09:25 Patient Disposition: Home, Self-Care Discharge Diagnosis: hypoxia pneumonia COPD exacerbation Referrals: Hector Cherry MD [Primary Care Provider] - 1 Week Discharge Medications: New azithromycin 500 mg Tablet 500 mg PO Q24H Qty: 3 0RF prednisone 20 mg tablet 40 mg PO DAILY Qty: 6 0RF cefuroxime axetil 500 mg tablet 500 mg PO BID Qty: 6 0RF Continued (DME) insulin syringe,safety needle 0.3 mL 29 x 1/2 syringe See Rx Instructions .Route Qty: 100 0RF Rx Instructions: As directed (DME) Comfort EZ Pen [place] 32 gauge x 5/16 needle See Rx Instructions .Route Qty: 100 0RF Rx Instructions: Use 3 times daily with insulin metoprolol succinate 50 mg tablet extended release 24 hr 50 mg PO DAILY Qty: 90 1RF pantoprazole 20 mg tablet,delayed release (DR/EC) 20 mg PO DAILY@0630 Qty: 90 1RF albuterol sulfate 2.5 mg /3 mL (0.083 %) solution for nebulization 2.5 mg inhalation Q4H PRN (Reason: shortness of breath or wheezing) Qty: 90 3RF gabapentin 300 mg capsule 300 mg BID clonazepam 0.5 mg tablet 0.5 mg PO DAILY clonazepam 0.5 mg tablet 0.5 mg PO DAILY@1700 Rx Instructions: 0.5 mg orally Take 1 tablet in morning and 1 tab at 5pm venlafaxine 150 mg capsule,extended release 24hr 150 mg PO BID insulin lispro [Humalog KwikPen Insulin] 100 unit/mL insulin pen 20 unit subcut TIDAC PRN (Reason: Blood Sugar Levels) albuterol sulfate 90 mcg/actuation HFA aerosol inhaler 2 puff inhalation Q4H PRN (Reason: for wheezing) insulin glargine [Lantus Solostar U-100 Insulin] 100 unit/mL (3 mL) insulin pen 30 unit subcut BEDTIME timolol maleate 0.5 % drops 1 drp ophthalmic-Left BID latanoprost 0.005 % drops 1 drp ophthalmic-Left BEDTIME brimonidine 0.2 % drops 1 drp ophthalmic-Left BID zolpidem 5 mg tablet 5 mg PO BEDTIME Qty: 30 2RF Discharge Orders: Discharge Order (Routine); Ordered 09/24/24 Ordered By: Tram Moore Diet: Advance to usual diet Activity on Discharge: As tolerated Stand Alone Forms: Patient Portal Discharge page Print Language: Togolese Care Plan Goals: respiratory health Health Concerns: hypoxia pneumonia COPD exacerbation Plan of Treatment: prednisone 40 mg daily x 3 days cefuroxime 500 mg twice daily x 3 days azithromycin 500 mg once daily x 3 days Please follow up with your primary care doctor within 1 week. Return to the hospital if you experience recurrent or worsening symptoms. Assessment: See Discharge Summary.
[2024-09-24 10:03] VITALS: PULSE 75; O2SAT 91
[2024-09-24 11:13] VITALS: PULSE 76; RESP 18; O2SAT 96
[2024-09-24] MEDS: methylPREDNISolone Sod Succ 40 MG/ML VIAL IVPUSH (11:13)
[2024-09-24 11:29] LABS: Glucose, Whole Blood 91 mg/dL (60-115)
--- NOTE | 2024-09-24 11:53 | MHC.CM.PN ---
pt dcd home sdelf care
[2024-09-26 05:09] LABS: Strep Pneumo Ag urine Not Detected (Not Detected)
[2024-09-27 06:08] LABS: Legionella Ag Urine Not Detected (Not Detected)
== END 2024-09-24 12:05 | disposition home or self-care (01) | DRG 194 ==
LOC: HO.ED 16:02 → HO.EDOVER 16:50 → HO.S3 17:05
PROVIDERS: Physician Assistant; Admitting Provider Student in an Organized Health Care Education/Training Program; Emergency Provider Emergency Medicine; PCP Internal Medicine; Visit Provider Family Medicine
DX: J18.9 Pneumonia, unspecified organism (principal); J44.0 Chronic obstructive pulmonary disease with (acute) lower respiratory infection; J44.1 Chronic obstructive pulmonary disease with (acute) exacerbation; J45.901 Unspecified asthma with (acute) exacerbation; K21.9 Gastro-esophageal reflux disease without esophagitis; F39 Unspecified mood [affective] disorder; G47.33 Obstructive sleep apnea (adult) (pediatric); E11.42 Type 2 diabetes mellitus with diabetic polyneuropathy; I10 Essential (primary) hypertension; Z20.822 Contact with and (suspected) exposure to COVID-19; Z79.4 Long term (current) use of insulin; Z79.899 Other long term (current) drug therapy
CPT/HCPCS: 0241U; 36415; 71046; 80053; 81001; 82947; 83690; 83735; 83880; 84145; 84484; 85025; 85027; 85610; 87040; 87449; 87899; 93005; 94640; 97161; 99285; J0456; J0696; J1650; J2919

== ENCOUNTER → 2024-09-21 11:04 | Outpatient (BNV) | payer MEDICARE, SELFPAY | PROVIDERS: Admitting Provider Student in an Organized Health Care Education/Training Program; Emergency Provider Emergency Medicine; PCP Internal Medicine; Visit Provider Internal Medicine Cardiovascular Disease | DX: R07.9 Chest pain, unspecified (principal) | CPT/HCPCS: 93010 ==

== ENCOUNTER → 2024-09-21 16:49 | Outpatient (BNV) | payer MEDICARE, SELFPAY | PROVIDERS: Admitting Provider Student in an Organized Health Care Education/Training Program; Emergency Provider Emergency Medicine; PCP Internal Medicine; Visit Provider Family Medicine | DX: J18.9 Pneumonia, unspecified organism (principal); J44.1 Chronic obstructive pulmonary disease with (acute) exacerbation; R09.02 Hypoxemia | CPT/HCPCS: 99223; 99232; 99239; G0180 ==

== ENCOUNTER 2024-09-25 14:08 | Outpatient (AMB) | payer MEDICARE, SELFPAY ==
--- NOTE | 2024-09-25 14:27 | MHC.OFFVISPS ---
Intake Intake Visit Reasons: f/u consultation Program Management Analyst Required: No Allergies hydrocortisone [HYDROCORTISONE] Allergy (Severe, Verified 09/21/24 11:05) SWELLING NSAIDS (Non-Steroidal Anti-Inflamma [NSAIDS (NON-STEROIDAL ANTI-INFLAMMA] Allergy (Severe, Verified 09/21/24 11:05) BLEEDING aspirin Allergy (Unknown, Verified 09/21/24 11:05) bleeding doxycycline Adverse Reaction (Severe, Verified 09/21/24 11:05) in-effective Medication List - Last Reconciled 09/25/24 by Gayathri Castro APRN albuterol sulfate 90 mcg/actuation 2 puffs inhalation Q4H PRN albuterol sulfate 2.5 mg (3 mL) inhalation Q4H PRN azithromycin 500 mg PO Q24H brimonidine 0.2% 1 drp ophthalmic-Left BID cefuroxime axetil 500 mg PO BID clonazepam 0.5 mg PO DAILY clonazepam 0.5 mg PO DAILY@1700 gabapentin 300 mg BID insulin glargine (Lantus Solostar U-100 Insulin) 30 units subcut BEDTIME insulin lispro (Humalog KwikPen (U-100) Insulin) 20 units subcut TIDAC PRN insulin syringe,safety needle As directed latanoprost 0.005% 1 drp ophthalmic-Left BEDTIME metoprolol succinate ER 50 mg PO DAILY pantoprazole 20 mg PO DAILY@0630 pen needle, diabetic (Comfort EZ Pen [place]) Use 3 times daily with insulin prednisone 40 mg (2 x 20 mg) PO DAILY timolol maleate 0.5% 1 drp ophthalmic-Left BID venlafaxine ER 150 mg PO BID zolpidem 5 mg PO BEDTIME HPI- Psychiatric Chief Complaint: f/u consultation HPI Narrative: mood improved; feeling less depressed and more hopeful. Less anxious; no medical changes. feels medications are helpful. Past Psychiatric History: outp tx for years with venlafaxine and clonazepam Subjective Subjective Subjective Medication Compliance: Yes Side effects from medications: No Review of Systems Medical Review of Systems: unchanged Mental Status Exam Mental Status Exam Patient Appearance: Well Grooomed and Appropriate Patient Orientation: Person, Place, Time and Situation Level of Consciousness: Awake, Appropriate and Alert Patient Behavior: Appropriate and Cooperative Mood Description: Happy and Appropriate Affect Description: Happy and Appropriate Patient Cognition Impaired: No Ability to Follow Directions: Good Speech Pattern: Clear and Appropriate Hallucinations: None Delusions: Not Present Thought Process: Intact and Goal Oriented Thought Content: positive for Intact and positive for Goal Oriented Judgement: Good Assessment and Plan Assessment & Plan (1) ESTELLA (generalized anxiety disorder): Status: Acute Code(s): F41.1 - Generalized anxiety disorder (2) Major depressive disorder, recurrent severe without psychotic features: Status: Acute Code(s): F33.2 - Major depressive disorder, recurrent severe without psychotic features Medications: New venlafaxine ER 150 mg PO BID 60 caps 2RF Changed From clonazepam 0.5 mg PO BID To clonazepam 0.5 mg PO BID PRN 60 tabs 2RF anxiety Refilled zolpidem 5 mg PO BEDTIME 30 tabs 2RF Counseling and coordination of Care Pt. Self Management counseling: Maintenance-social rhythm, Mod caffeine/ETOH intake, Sleep hygiene, General coping skills and Problem solving Medication management counseling: Effectiveness, Side effects, Dosing range, Duration, Drug interaction and Adherence Diagnosis and Prognosis Counseling: Accuracy of diagnosis, Prognosis over time, Impact of diagnosis on life functions, Impact of family relationship, Problematic behaviors secondary to diagnosis and Adequacy of current interventions Details: I spent 40 minutes reviewing the record, seeing the patient and documenting in the medical record. Counseling provided to the patient/caregiver as outlined below. Addressed patient/caregiver concerns regarding current medication regime including effective adherence. Addressed patient/caregiver concerns regarding diagnosis and prognosis including accuracy of diagnosis, prognosis over time, impact of diagnosis. Addressed patient/caregiver concerns regarding impact of recent stressors. [facility] Medical History Chest pain in adult Class 2 severe obesity with body mass index (BMI) of 35 to 39.9 with serious comorbidity Bilateral primary osteoarthritis of knee Osteoarthritis of right knee Diabetes mellitus type 2, uncontrolled COPD exacerbation Arthritis of both knees Chronic pain syndrome Allergic rhinitis VIDA on CPAP COPD (chronic obstructive pulmonary disease) Lumbar radiculopathy Allergic rhinitis Asthma Benign prostatic hyperplasia Back pain Sleep apnea HTN (hypertension) Lumbar spondylosis Tendon tear Depression Arthritis Asthma Crohn disease Surgical History H/O colonoscopy Family History Father No problems noted. Mother No problems noted. Social History Household Members: Family Housing: House Do you presently have visiting nurse or other home services: No Alcohol intake: never Comment: pain 3-4 left knee and buttock Patient Tobacco Use Status: Former Tobacco user e-Cigarette/Vaping Use: Never Used Second Hand Smoke Exposure: No Advance Directives Date on File: 07/07/24 service: No Current occupational status: retired Cognitive needs: Yes (cane) Hearing needs: No Vision needs: Yes (Glasses) Social History: lives with ; has 3 adult children ; retired from [employer] Substance History: denies Trauma History: difficult childhood- mother when he was age 8. raised by brother and sister Coding Level of Care Code Est Pt Level 4 (56667) Diagnoses ESTELLA (generalized anxiety disorder) F41.1 Major depressive disorder, recurrent severe without psychotic features F33.2
== END 2024-09-25 14:46 | disposition home or self-care (01) ==
LOC: HO.HOP 14:08
PROVIDERS: PCP Internal Medicine; Visit Provider Clinical Nurse Specialist Psychiatric/Mental Health
DX: F41.1 Generalized anxiety disorder (principal); F33.2 Major depressive disorder, recurrent severe without psychotic features
CPT/HCPCS: 99214

== ENCOUNTER → 2024-09-25 14:08 | Outpatient (BNVA) | payer MEDICARE, SELFPAY | PROVIDERS: PCP Internal Medicine; Visit Provider Clinical Nurse Specialist Psychiatric/Mental Health | DX: F41.1 Generalized anxiety disorder (principal); F33.2 Major depressive disorder, recurrent severe without psychotic features; Z71.89 Other specified counseling | CPT/HCPCS: 99212 ==

== ENCOUNTER 2024-10-07 00:20 | Emergency (ER) | payer MEDICARE, SELFPAY ==
--- NOTE | ~2024-10-07 | XR_ITS ---
EXAMINATION: XR CHEST CLINICAL INFORMATION: SOB COMPARISON: September 21, 2024 TECHNIQUE: 2 views of the chest were obtained. FINDINGS: The cardiomediastinal silhouette is within normal limits and stable. There is a cluster of tiny nodular densities right mid to upper lung field in the region of prior infiltrate. The lungs are otherwise clear. There are no significant pleural effusions. The bony structures and soft tissues are unremarkable. XR/XR chest 2V IMPRESSION: 1. Cluster of tiny nodular densities in the region of prior infiltrate in the right mid to upper lung field. 2. No acute cardiopulmonary disease. Electronically signed by: Néstor Caraballo MD 10/07/2024 01:41 AM [facility]
[2024-10-07 00:32] VITALS: BP 144/75; PULSE 63; RESP 20; TEMP 36.1; O2SAT 93; BMI 30.4
--- NOTE | 2024-10-07 00:37 | ECG_ITS ---
Test Reason : SOB Blood Pressure : / mmHG Vent. Rate : 068 BPM Atrial Rate : 068 BPM P-R Int : 160 ms QRS Dur : 100 ms QT Int : 430 ms P-R-T Axes : 043 001 025 degrees QTc Int : 457 ms Normal sinus rhythm Cannot rule out Inferior infarct , age undetermined Abnormal ECG When compared with ECG of 21-SEP-2024 11:01, Minimal criteria for Inferior infarct are now Present Referred By: Generic ED Physician Electronically Signed By:Kaden More
[2024-10-07 01:19] LABS: Basophils Percent Auto 0.5 % (0-2); Eosinophils Absolute Auto 0.4 X10*3/uL (0.0-0.4); Eosinophils Percent Auto 4.7 % (0-4); Hematocrit 40.7 % (42.0-52.0); Hemoglobin 13.5 g/dl (14.0-18.0); Imm Gran Abs Auto 0.04 X10*3/uL (0.00-0.03); Imm Gran Pct Auto 0.5 % (0.0-0.4); Lymphocytes Absolute Auto 1.2 X10*3/uL (1.2-4.9); Lymphocytes Percent Auto 16.7 % (20-40); MANUAL DIFF FLAG SCAN; Mean Corpuscular HGB Conc 33.2 g/dl (31.0-36.0); Mean Corpuscular Hemoglobin 28.5 pg (27.0-33.0); Mean Platelet Volume 11.4 fL (9.4-12.4); Monocytes Absolute Auto 0.6 X10*3/uL (0.1-1.2); Monocytes Percent Auto 8.5 % (2-11); Neutrophils Absolute Auto 5.1 x10*3/uL (2.0-8.3); Neutrophils Percent Auto 69.1 % (45-73); PLT CLUMP 1; Red Blood Count 4.73 X10*6/uL (4.60-5.80); Red Cell Distribution Width 13.2 % (11.0-16.0); SCAN SMEAR FLAG 1
[2024-10-07 01:38] LABS: Albumin Level 3.4 g/dL (3.5-5.0); Anion Gap 15 (12-20); Aspartate Amino Transferase 44 U/L (5-37); Bilirubin Total 0.5 mg/dL (0.0-1.0); Blood Urea Nitrogen 13 mg/dL (9-16); Calcium 9.3 mg/dL (8.4-10.2); Carbon Dioxide 24 mmol/L (22-29); Chloride 105 mmol/L (96-108); Creatinine Clr Calc Pharmacy 85.4; Estimated Glomerular Filt Rate > 60; Glucose Random 108 mg/dL (60-115); Potassium 4.3 mmol/L (3.3-5.1); Sodium 140 mmol/L (135-145); Total Protein 6.8 g/dL (6.5-8.0)
[2024-10-07 01:40] LABS: Troponin-I High Sensitivity 19.1 ng/L (<3.5-35.0)
[2024-10-07 01:43] LABS: COVID-19 Test Negative (Negative); IDNOW Serial# 08D9AD1C; IDNOW Serial# 6674DD1D; Influenza A Negative (Negative); Influenza B2 Negative (Negative)
[2024-10-07 02:04] LABS: Alanine Aminotransferase 37 U/L (0-40); Alkaline Phosphatase 112 U/L (39-117)
--- NOTE | 2024-10-07 02:07 | ED.URI ---
HPI - URI/Sore Throat General Chief Complaint: Upper Respiratory Symptoms Stated Complaint: pnuemonia ? Time Seen by Provider: 10/07/24 01:45 Source: patient Mode of arrival: ambulatory Limitations: no limitations History of Present Illness ED Provider: HPI Narrative: Patient's history of COPD/asthma overlap been sick for last 1 month was admitted for right upper lobe pneumonia with hypoxia discharged on cefuroxime and Zithromax comes back as for last few days started having similar episode with increased cough and shortness a breath no fever no chest pain or palpitation Related Data Home Medications ?Medication ?Instructions ?Recorded ?Confirmed latanoprost 0.005 % eye drops 1 drp ophthalmic-Left BEDTIME 11/17/21 09/25/24 brimonidine 0.2 % eye drops 1 drp ophthalmic-Left BID 05/18/23 09/25/24 albuterol sulfate 90 mcg/actuation 2 puff inhalation Q4H PRN for 06/19/24 09/25/24 aerosol inhaler wheezing insulin glargine 100 unit/mL (3 30 unit subcut BEDTIME 06/19/24 09/25/24 mL) subcutaneous pen (Lantus Solostar U-100 Insulin) timolol maleate 0.5 % eye drops 1 drp ophthalmic-Left BID 06/24/24 09/25/24 gabapentin 300 mg capsule 300 mg BID 09/21/24 09/25/24 insulin lispro 100 unit/mL 20 unit subcut TIDAC PRN Blood 09/21/24 09/25/24 subcutaneous pen (Humalog KwikPen Sugar Levels (U-100) Insulin) Previous Rx's ?Medication ?Instructions ?Recorded insulin syringe,safety needle 0.3 #100 ea 09/28/21 mL 29 gauge x 1/2 pen needle, diabetic 32 gauge x #100 ea 04/09/22 5/16 (Comfort EZ Pen [place]) metoprolol succinate 50 mg 50 mg PO DAILY #90 tabs 06/27/24 tablet,extended release 24 hr pantoprazole 20 mg tablet,delayed 20 mg PO DAILY@0630 #90 tabs 06/27/24 release albuterol sulfate 2.5 mg/3 mL 2.5 mg (3 mL) inhalation Q4H PRN 08/09/24 (0.083 %) solution for nebulization shortness of breath or wheezing #90 mL azithromycin 500 mg tablet 500 mg PO Q24H #3 tabs 09/24/24 cefuroxime axetil 500 mg tablet 500 mg PO BID #6 tabs 09/24/24 prednisone 20 mg tablet 40 mg (2 x 20 mg) PO DAILY #6 tabs 09/24/24 clonazepam 0.5 mg tablet 0.5 mg PO BID PRN anxiety #60 tabs 09/25/24 venlafaxine 150 mg 150 mg PO BID #60 caps 09/25/24 capsule,extended release 24 hr zolpidem 5 mg tablet 5 mg PO BEDTIME #30 tabs 09/25/24 codeine 10 mg-guaifenesin 100 mg/5 10 ml PO Q6H PRN cough #237 mL 10/07/24 mL oral liquid levofloxacin 750 mg tablet 750 mg PO DAILY 7 days #7 tabs 10/07/24 prednisone 20 mg tablet 40 mg (2 x 20 mg) PO DAILY #10 tabs 10/07/24 Allergies Allergy/AdvReac Type Severity Reaction Status Date / Time hydrocortisone Allergy Severe SWELLING Verified 10/07/24 00:36 [HYDROCORTISONE] NSAIDS (Non-Steroidal Allergy Severe BLEEDING Verified 10/07/24 00:36 Anti-Inflamma [NSAIDS (NON-STEROIDAL ANTI-INFLAMMA] aspirin Allergy Unknown bleeding Verified 10/07/24 00:36 doxycycline AdvReac Severe in-effectiv Verified 10/07/24 00:36 e Review of Systems Review of Systems: Yes all other systems are reviewed and are negative PMFSH Past Medical History Medical History Chest pain in adult Class 2 severe obesity with body mass index (BMI) of 35 to 39.9 with serious comorbidity Bilateral primary osteoarthritis of knee Osteoarthritis of right knee Diabetes mellitus type 2, uncontrolled COPD exacerbation Arthritis of both knees Chronic pain syndrome Allergic rhinitis VIDA on CPAP COPD (chronic obstructive pulmonary disease) Lumbar radiculopathy Allergic rhinitis Asthma Benign prostatic hyperplasia Back pain Sleep apnea HTN (hypertension) Lumbar spondylosis Tendon tear Depression Arthritis Asthma Crohn disease Surgical History H/O colonoscopy Family History Family History Father No problems noted. Mother No problems noted. Social History Social History Household Members: Family Housing: House Do you presently have visiting nurse or other home services: No Alcohol intake: never Comment: pain 3-4 left knee and buttock Patient Tobacco Use Status: Former Tobacco user Smoked in Last 30 Days: No e-Cigarette/Vaping Use: Never Used Second Hand Smoke Exposure: No Use of substances other than those prescribed or required for medical reasons: No Advance Directives: Yes Advance Directives Information Provided: No Advance Directives on File: No Advance Directives Date on File: 07/07/24 Do you have a plan to hurt others: No Plan service: No Current occupational status: retired Cognitive needs: Yes (cane) Hearing needs: No Vision needs: Yes (Glasses) Physical Exam Vital Signs: Vital Signs: Last Vital Signs Temp 97.9 F 10/07/24 04:39 Pulse 64 10/07/24 04:39 Resp 20 10/07/24 04:39 BP 132/73 10/07/24 04:39 Pulse Ox 96 10/07/24 04:39 O2 Del Method Room Air 10/07/24 04:39 BMI result Body Mass Index 30.4 Appearance: Alert. Oriented X3. Mild respiratory distress Frequent cough and wheezing Eyes: No pallor ENT: Pharynx normal. Oral Mucosa moist Neck: Normal inspection. Neck supple. CVS: Normal heart rate and rhythm. Pulses normal. Respiratory: Mild respiratory distress. Equal air entry bilateral, bilateral wheezing with conducted sounds Abdomen: Soft and nontender. Bowel sounds are present, no mass palpable, no CVA tenderness Skin: Skin warm and dry. Normal skin color. Normal skin turgor. Extremities: No lower extremity edema. No calf tenderness Neuro: Oriented X 3. Medications Administered Discontinued Medications Generic Name Dose Route Start Last Admin Trade Name Freq PRN Reason Stop Dose Admin Albuterol Sulfate 5 mg 10/07/24 03:38 10/07/24 04:16 Albuterol Sulfate (0.083%) 2.5 Mg/3 Ml Vial.Neb INHALE 10/07/24 03:39 5 mg ONCE ONE Administration Albuterol Sulfate 5 mg/ 0 mg 10/07/24 02:15 10/07/24 02:21 Albuterol/Ipratropium 3 ml INHALE 10/07/24 02:16 7.5 each ONCE ONE Administration Dexamethasone 10 mg 10/07/24 02:15 10/07/24 02:46 Dexamethasone 2 Mg Tablet PO 10/07/24 02:16 10 mg ONCE ONE Administration Guaifenesin/Codeine Phosphate 10 ml 10/07/24 02:17 10/07/24 02:46 Guaifen/Codeine Sf 200/20/10ml 10 Ml Liquid PO 10/07/24 02:18 10 ml ONCE ONE Administration Levofloxacin 750 mg 10/07/24 03:22 10/07/24 04:21 Levofloxacin 750 Mg Tablet PO 10/07/24 03:23 750 mg ONCE ONE Administration Medical Decision Making Medical Decision Making [facility] Narrative: Patient's COPD/asthma with bronchitis with history of pneumonia 2 weeks ago comes back with similar episode chest x-ray negative for any acute infiltrate but patient is still coughing and having lot of mucopurulent phlegm labs are stable patient responded to steroids and nebulizing treatment will prescribe him Levaquin for bronchitis/ pneumonia Differential Diagnosis Differential Diagnoses: The differential diagnosis associated with the presentation includes Lab Data [facility] Lab Attestation statement: I reviewed the patient's lab results. 10/07/24 01:12 10/07/24 01:12 Labs: Lab Results 10/07/24 10/07/24 Range/Units 01:11 01:12 WBC 7.4 (4.8-10.8) X10*3/uL RBC 4.73 (4.60-5.80) X10*6/uL Hgb 13.5 L (14.0-18.0) g/dl Hct 40.7 L (42.0-52.0) % MCV 86.0 (80.0-98.0) fL MCH 28.5 (27.0-33.0) pg MCHC 33.2 (31.0-36.0) g/dl RDW 13.2 (11.0-16.0) % Plt Count 207 (160-400) X10*3/uL MPV 11.4 (9.4-12.4) fL Immature Gran % (Auto) 0.5 H (0.0-0.4) % Neut % (Auto) 69.1 (45-73) % Lymph % (Auto) 16.7 L (20-40) % [place] % (Auto) 8.5 (2-11) % Eos % (Auto) 4.7 H (0-4) % Baso % (Auto) 0.5 (0-2) % Lymph # (Auto) 1.2 (1.2-4.9) X10*3/uL [place] # (Auto) 0.6 (0.1-1.2) X10*3/uL Eos # (Auto) 0.4 (0.0-0.4) X10*3/uL Baso # (Auto) 0.0 (0.0-0.2) X10*3/uL Abs Immat Gran (auto) 0.04 H (0.00-0.03) X10*3/uL Absolute Neuts (auto) 5.1 (2.0-8.3) x10*3/uL Absolute Nucleated RBC 0.000 (0.0-0.012) X10*3/uL Nucleated RBC % (auto) 0.0 (0.0-0.2) /100WBC Smear Tech's Comments VERIFIED Sodium 140 (135-145) mmol/L Potassium 4.3 (3.3-5.1) mmol/L Chloride 105 (96-108) mmol/L Carbon Dioxide 24 (22-29) mmol/L Anion Gap 15 (12-20) BUN 13 (9-16) mg/dL Creatinine 0.83 (0.5-1.4) mg/dL Estim Creat Clear Calc 85.4 Estimated GFR > 60 Random Glucose 108 (60-115) mg/dL Calcium 9.3 (8.4-10.2) mg/dL Total Bilirubin 0.5 (0.0-1.0) mg/dL AST 44 H (5-37) U/L ALT 37 (0-40) U/L Alkaline Phosphatase 112 (39-117) U/L Troponin I High Sens 19.1 D (<3.5-35.0) ng/L Total Protein 6.8 (6.5-8.0) g/dL Albumin 3.4 L (3.5-5.0) g/dL COVID-19 (PILAR) Negative (Negative) COVID-19 Clin Com See Note Influenza Type A (NICK) Negative (Negative) Influenza Type B (NICK) Negative (Negative) Influenza A & B Note See Note Independent Interpretation I performed an independent interpretation of an: EKG and Plain X-Ray Interpretation: Normal sinus rhythm heart rate 68 beats per minute normal intervals normal axis no acute STT wave changes no acute ischemia Radiology Impression Discussion of test interpretation with radiology: I have reviewed the radiologist's reading. Radiologist Impression: XR/XR chest 2V IMPRESSION: 1. Cluster of tiny nodular densities in the region of prior infiltrate in the right mid to upper lung field. 2. No acute cardiopulmonary disease. Electronically signed by: Néstor Caraballo MD 10/07/2024 01:41 AM [facility] Discharge Plan Discharge Clinical Impression: Bronchitis Patient Disposition: Home, Self-Care Instructions: Acute Bronchitis (ED) Additional Instructions: Continue to use nebulizer/inhaler treatment Prednisone and antibiotic as prescribed Cough syrup as prescribed Follow up with your PCP if not better Prescriptions: New levofloxacin 750 mg tablet 750 mg PO DAILY 7 Days Qty: 7 0RF prednisone 20 mg tablet 40 mg PO DAILY Qty: 10 0RF codeine-guaifenesin 10-100 mg/5 mL liquid 10 ml PO Q6H PRN (Reason: cough) Qty: 237 0RF No Action (DME) insulin syringe,safety needle 0.3 mL 29 x 1/2 syringe See Rx Instructions .Route Qty: 100 0RF Rx Instructions: As directed (DME) Comfort EZ Pen [place] 32 gauge x 5/16 needle See Rx Instructions .Route Qty: 100 0RF Rx Instructions: Use 3 times daily with insulin metoprolol succinate 50 mg tablet extended release 24 hr 50 mg PO DAILY Qty: 90 1RF pantoprazole 20 mg tablet,delayed release (DR/EC) 20 mg PO DAILY@0630 Qty: 90 1RF albuterol sulfate 2.5 mg /3 mL (0.083 %) solution for nebulization 2.5 mg inhalation Q4H PRN (Reason: shortness of breath or wheezing) Qty: 90 3RF gabapentin 300 mg capsule 300 mg BID insulin lispro [Humalog KwikPen Insulin] 100 unit/mL insulin pen 20 unit subcut TIDAC PRN (Reason: Blood Sugar Levels) azithromycin 500 mg Tablet 500 mg PO Q24H Qty: 3 0RF prednisone 20 mg tablet 40 mg PO DAILY Qty: 6 0RF cefuroxime axetil 500 mg tablet 500 mg PO BID Qty: 6 0RF albuterol sulfate 90 mcg/actuation HFA aerosol inhaler 2 puff inhalation Q4H PRN (Reason: for wheezing) insulin glargine [Lantus Solostar U-100 Insulin] 100 unit/mL (3 mL) insulin pen 30 unit subcut BEDTIME timolol maleate 0.5 % drops 1 drp ophthalmic-Left BID latanoprost 0.005 % drops 1 drp ophthalmic-Left BEDTIME brimonidine 0.2 % drops 1 drp ophthalmic-Left BID venlafaxine 150 mg capsule,extended release 24hr 150 mg PO BID Qty: 60 2RF zolpidem 5 mg tablet 5 mg PO BEDTIME Qty: 30 2RF clonazepam 0.5 mg tablet 0.5 mg PO BID PRN (Reason: anxiety) Qty: 60 2RF Interventions: ED Discharge Assessment Last Done: 10/07/24 04:39 Discharge Date/Time: 10/07/24 04:40 Print Language: Jamaican
[2024-10-07 02:14] LABS: Platelet Count 207 X10*3/uL (160-400); SLIDE REVIEW VERIFIED; White Blood Count 7.4 X10*3/uL (4.8-10.8)
[2024-10-07 02:21] VITALS: PULSE 60; RESP 18; O2SAT 94
[2024-10-07] MEDS: Albuterol Sulfate 5 MG, Albuterol/Iprat 2.5/0.5MG 3 ML 3 ML INHALE (02:21)
[2024-10-07] MEDS: dexAMETHasone 2 MG TABLET 10 MG PO (02:46)
[2024-10-07] MEDS: guaiFEN/Codeine SF 200/20/10ML 10 ML LIQUID PO (02:46)
[2024-10-07 04:00] VITALS: BP 132/73; PULSE 64; RESP 20; TEMP 36.6; O2SAT 96
[2024-10-07] MEDS: Albuterol Sulfate (0.083%) 2.5 MG/3 ML VIAL.NEB 5 MG INHALE (04:16)
[2024-10-07 04:17] VITALS: PULSE 67; RESP 18; O2SAT 93
[2024-10-07] MEDS: levoFLOXacin 750 MG TABLET PO (04:21)
[2024-10-07 04:39] VITALS: BP 132/73; PULSE 64; RESP 20; TEMP 36.6; O2SAT 96
--- OUTSIDE RECORDS SUMMARY | 2024-10-10 11:57 | XMS_ITS | Patient Health Record ---
Author Organization [facility] Address [address] [place] [id number] Care Team Providers Care Client Service Representative Name Role Phone MARIA TERESA DENIS Primary Care Provider Rahat Gallo Jr Unavailable [phone] ALLERGIES Allergen (clinical drug ingredient) Drug/Non Drug Allergy documented on EMR Reaction Allergy Type Onset Date Status hydrocortisone Hydrocortisone Unknown Drug Allergy Active Non-steroidal anti-inflammatory agent (FN) NSAIDS (uncoded) Unknown Allergy Active REASON FOR REFERRAL No Information MEDICATIONS Medication SIG (Take, Route, Frequency, Duration) Notes Start Date End Date Status Venlafaxine HCl ER 150 MG 1 capsule with food Orally Once a day Active Acetaminophen 8 Hour 650 MG 1 tablet as needed Orally every 6 hrs Active Metoprolol Succinate ER 200 MG 1 tablet Orally Once a day Active predniSONE 10 MG 4 tablets daily for 7 days then taper by 10 mg weekly. Orally 01/01/2022 Active oxyCODONE HCl 15 MG 1 tablet as needed Orally every 6 hrs Active azaTHIOprine 50 MG TAKE 3 TABLETS BY [facility] EVERY DAY Orally for 30 days Active Multivitamin - 1 tablet Orally Once a day for 30 day(s) Active MiraLax (colon prep) 8.3 ounce ((238) grams mixed with Gatorade or Crystal Light orally begin at 5:00 p.m. the day before the procedure for 1 day 07/24/2020 Active Pantoprazole Sodium 40 MG 1 tablet Orall y Once a day for 30 Active Albuterol Sulfate HFA 108 (90 Base) MCG/ACT 2 puffs as needed Inhalation prn Active Simvastatin 20 MG 1 tablet in the even ing Orally Once a day Active IMMUNIZATIONS Vaccine Route Administration Date Status Comme nts Flu vaccine no Preserv 3 and > Unknown 08/14/2014 Admin istered Influenza Unknown 09/30/2016 Administered Influenza Unknown 08/01/2019 Administered SOCIAL HISTORY Sex Assigned At : Social History Observation Description Sex Assigned At Unknown PROBLEMS Problem Type ICD Code Onset Dates Problem Status W/U Status Risk SNOMED Code Notes Problem Gastro-esophagea l reflux disease without esophagitis (K21.9) Active confirmed 882248054 Problem Crohn's disease of small intestine with intestinal obstruction (K50.012) Active confirmed 03758230 Problem Encounter for therapeutic drug level monitoring (Z51.81) Active confirmed 935686628 Problem Crohns disease of small intestine with intestinal obstruction (K50.012) Active confirmed Crohn's disease of small intestine (21778796) PLAN OF TREATMENT Pending Test Test Name Order Date LIVER PROFILE 04/22/2016 LIVER PROFILE 11/05/2015 LIVER PROFILE 08/19/2015 AMYLASE 03/20/2015 AMYLASE 04/22/2016 AMYLASE 11/05/2015 AMYLASE 08/19/2015 CBC w DIFF 04/22/2016 CBC w DIFF 11/05/2015 CBC w/o DIFF 08/19/2015 PROMETHEUS THIOPURINE METABOLITES (TPMT) 11/05/2015 PROMETHEUS THIOPURINE METABOLITES (TPMT) 08/19/2015 PROMETHEUS THIOPURINE METABOLITES (TPMT) 10/03/2015 PROMETHEUS THIOPURINE METABOLITES (TPMT) 04/22/2016 Future Test Test Name Order Date COLONOSCOPY 07/12/2014 LIVER PROFILE 04/22/2016 CBC w/o DIFF 04/22/2016 COLONOSCOPY 04/15/2017 COLONOSCOPY 07/24/2020 Insurance Providers Payer Name Payer Address Payer Phone Subscriber Number Group Number Insured Name Patient Relationship to Insured Coverage Start Date Coverage End Date [employer] Medicare Adv (PPO) [address] [address] [place] [address] [id number] NINO ACOSTA Self - patient is the insured MEDICAL (GENERAL) HISTORY Medical History History ICD Code Crohn's disease, small intes sathya, diagnosed 2014, previous therapy with mesalamine, currently on azathioprine GERD asthma degenerative joint disease hypertension back pain colon polyps gastritis COPD diabetes mellitus - no longer no has Denies ND,CVA,renal disease Surgical History Surgery Date(Month/Year)
== END 2024-10-07 04:40 | disposition home or self-care (01) ==
PROVIDERS: Emergency Provider Internal Medicine; PCP Internal Medicine
DX: J40 Bronchitis, not specified as acute or chronic (principal); R06.02 Shortness of breath; R05.9 Cough, unspecified; E11.9 Type 2 diabetes mellitus without complications; Z79.4 Long term (current) use of insulin; Z11.52 Encounter for screening for COVID-19; Z79.899 Other long term (current) drug therapy
CPT/HCPCS: 71046; 80053; 84484; 85025; 87502; 87635; 93005; 94640; 99284; 99285; J8540

== ENCOUNTER → 2024-10-07 00:37 | Outpatient (BNV) | payer MEDICARE, SELFPAY | PROVIDERS: Emergency Provider Internal Medicine; PCP Internal Medicine; Visit Provider Internal Medicine Cardiovascular Disease | DX: R94.31 Abnormal electrocardiogram [ECG] [EKG] (principal) | CPT/HCPCS: 93010 ==

== ENCOUNTER 2024-10-08 13:27 | Outpatient (AMB) | payer MEDICARE, SELFPAY ==
--- NOTE | 2024-10-08 13:32 | A.OFFPC_ITS ---
Vital Signs 10/08/24 13:34 Height 5 ft 8 in Weight 227 lb 8 oz BMI 34.6 BP 150/66 H Blood Pressure Location Lt brachial Position Sitting Pulse 64 Pulse Source Pulse Oximeter Pulse Oximetry (%) 93 Oxygen Delivery Method Room Air Intake Visit Reasons: TCM Pneumonia [facility] 09/24 Intake Note: Patient is here for hospital discharge follow up. Patient was discharged from [facility] on 09/24/24. Etcher Machine Required: No Specialized Developer: Not Required per policy Accompanied by: Self / Same As Patient Allergies hydrocortisone [HYDROCORTISONE] Allergy (Severe, Verified 10/08/24 13:58) SWELLING NSAIDS (Non-Steroidal Anti-Inflamma [NSAIDS (NON-STEROIDAL ANTI-INFLAMMA] Allergy (Severe, Verified 10/08/24 13:58) BLEEDING aspirin Allergy (Unknown, Verified 10/08/24 13:58) bleeding doxycycline Adverse Reaction (Severe, Verified 10/08/24 13:58) in-effective Medication List - Last Reconciled 10/08/24 by Christal Russell PA-C albuterol sulfate 90 mcg/actuation 2 puffs inhalation Q4H PRN albuterol sulfate 2.5 mg (3 mL) inhalation Q4H PRN brimonidine 0.2% 1 drp ophthalmic-Left BID clonazepam 0.5 mg PO BID PRN codeine-guaifenesin 10-100 mg/5 mL 10 mL PO Q6H PRN gabapentin 300 mg BID insulin glargine (Lantus Solostar U-100 Insulin) 30 units subcut BEDTIME insulin lispro (Humalog KwikPen (U-100) Insulin) 20 units subcut TIDAC PRN insulin syringe,safety needle As directed latanoprost 0.005% 1 drp ophthalmic-Left BEDTIME levofloxacin 750 mg PO DAILY 7 days metoprolol succinate ER 50 mg PO DAILY pantoprazole 20 mg PO DAILY@0630 pen needle, diabetic (Comfort EZ Pen [place]) Use 3 times daily with insulin prednisone 40 mg (2 x 20 mg) PO DAILY timolol maleate 0.5% 1 drp ophthalmic-Left BID venlafaxine ER 150 mg PO BID zolpidem 5 mg PO BEDTIME Tobacco use date assessed: 10/08/24 Fall risk assessment: No Falls in past year Last assessed Fall Risk: 10/08/24 Dental Screening Dental Screen Date: 01/11/24 HPI TCM TCM Information Date of Discharge 09/24/24 Discharged From [facility] HPI Comments History of Present Illness Details Patient presents to the office for a TCM visit. Date of admission: 09/21/2024 Date of discharge: 09/24/2024 Follow-up from admission [facility] 09/21/2024 This is a 74yo M with asthma/COPD overlap not on home O2, HTN, DM2, peripheral neuropathy, GERD, VIDA on CPAP, mood disorder who presented to [facility] on 09/21/2024 with 3 days of SOB, SIMON, Productive cough and found to have hypoxia due to CAP found on CXR. He was admitted to the medical-surgical unit and treated with ceftriaxone and azithromycin along with methylprednisolone. He was weaned off of oxygen. Procalcitonin low and blood cultures negative. He was discharged on 3 days of cefuroxime, azithromycin, and prednisone. Discharge location: Home Diagnosis/procedure: Pneumonia/respiratory failure New/DC medications: Ceftriaxone, azithromycin, prednisone Change medications/dosing: None Pending labs/tests: None Any follow up Labs/test? Procalcitonin Any follow up imaging required? No How are you feeling? Patient reports still feeling fatigue, shortness of breath, dyspnea on exertion with productive cough with yellow/clear colored sputum and legs swelling Are you in any discomfort? Patient reports Yes from my joint pains Do you have any questions about your condition or discharge instructions? No Were you able to get your medications filled? Yes Do you have any questions about your medications? Yes I was taken off of my chlorthalidone in July, do I have to be put back on this because I have noticed my legs are swollen Were you able to schedule your follow-up appointments? Yes If home health was ordered, have they contacted you? None ordered Any outpatient services, if so, are you scheduled? None Are there any additional resources like transportation you might need during her recovery? Not at this time Educational need/resources: None needed What support system do you have? Daughter Patient reports since he was discharged he continues to have generalized fatigue, SOB, SIMON, and a productive cough with clear/yellow colored sputum. He reports he always sleeps with 3 pillows and on his side this has not changed. He reports he went back to the ED on 10/07/2024 and was diagnosed with bronchitis. He was discharged from the emergency department with levofloxacin, prednisone and Robitussin with codeine which he has not picked up yet. Patient also reports in July when he was admitted to [facility] for low potassium at that time he was discontinued off of his chlorthalidone. [facility] Medical History (Updated 10/08/24 @ 15:24 by Christal Russell PA-C) SIMON (dyspnea on exertion) Shortness of breath Pedal edema Chest pain in adult Class 2 severe obesity with body mass index (BMI) of 35 to 39.9 with serious comorbidity Bilateral primary osteoarthritis of knee Osteoarthritis of right knee Diabetes mellitus type 2, uncontrolled COPD exacerbation Arthritis of both knees Chronic pain syndrome Allergic rhinitis VIDA on CPAP COPD (chronic obstructive pulmonary disease) Lumbar radiculopathy Allergic rhinitis Asthma Benign prostatic hyperplasia Back pain Sleep apnea HTN (hypertension) Lumbar spondylosis Tendon tear Depression Arthritis Asthma Crohn disease Surgical History H/O colonoscopy Family History Father No problems noted. Mother No problems noted. Social History Household Members: Family Housing: House Do you presently have visiting nurse or other home services: No Alcohol intake: never Comment: pain 3-4 left knee and buttock Patient Tobacco Use Status: Former Tobacco user e-Cigarette/Vaping Use: Never Used Second Hand Smoke Exposure: Yes Advance Directives Date on File: 07/07/24 service: No Current occupational status: retired Cognitive needs: Yes (cane) Hearing needs: No Vision needs: Yes (Glasses) Questionnaire Thrive Questionnaire Date Thrive assessed: 09/22/24 ESTELLA-7 AMB Questionnaire ESTELLA-7 Date ESTELLA - 7 assessed: 04/10/24 Source: Developed by Drs. Santiago Schwartz, Ana María Deleon, Osbaldo Alexander and colleagues, with an educational jose de jesus from [employer]. Physical exam (Primary Care) Vital Signs: Last Vital Signs Pulse 64 10/08/24 13:34 BP 150/66 H 10/08/24 13:34 Pulse Ox 93 10/08/24 13:34 Oxygen Delivery Method Room Air 10/08/24 13:34 Vitals signs have been reviewed. BMI result Body Mass Index 34.6 Tobacco/Smoking Status: Tobacco use Status Tobacco use date assessed 10/08/24 10/08/24 13:37 Patient Tobacco Use Status Former Tobacco user 10/08/24 13:32 e-Cigarette/Vaping Use Never Used 10/08/24 13:32 Thrive Assessment: Date of Thrive Assessment Date Thrive assessed 09/22/24 10/08/24 13:32 Const Other: Appearance: Alert. Oriented X3. No acute distress. ? Head: Normal external exam. Normocephalic. Atraumatic. Eyes: PERRLA. EOMI. Conjunctiva and sclera normal. Eyelids normal. ? ENT: Pharynx normal. Uvula midline. Moist mucous membranes. ? Neck: Normal inspection. Neck supple. FROM. No adenopathy. Thyroid Normal. No meningeal signs. No neck mass noted. JVD noted. CVS: Normal heart rate and rhythm. Heart sound normal. No murmurs noted. Pulses normal throughout. Respiratory: No respiratory distress. Painless inspiration. Breath sounds normal. No wheezes/rales/rhonchi noted. Chest nontender. ? No accessory muscle usage noted or decreased air movement noted. Abdomen: Soft and nontender. Bowel sounds normal in all 4 quadrants. No distention noted.? No organomegaly noted.? No visible injury noted. Back: Full range of motion noted. Skin: Skin warm and dry.? Normal skin color.? Normal skin turgor. No rashes/lesions/lacerations noted. Extremities: +4 pitting lower extremity edema. ? Extremities exhibit normal range of motion.? Extremities nontender. Neuro: Oriented X 3.? No motor deficit.? No sensory deficit.? Reflexes normal. Results AMB Hemoglobin A1c AMB Hemoglobin A1c 6.7 % Last Edit by CLAU Hamilton on 10/08/24 14:40 Results Reviewed Results Reviewed: Laboratory Last Values Hgb A1c (Clinic) 6.7 % (4.0-6.0) H 10/08/24 14:24 Coding Level of Care Code TCM Mod MDM <= 14 Days Complex EM visit Add On G2211 Diagnoses Pedal edema R60.0 Shortness of breath R06.02 SIMON (dyspnea on exertion) R06.09 Assessment & Plan Assessment & Plan (1) Pedal edema: Code(s): R60.0 - Localized edema Category: Medical (2) Shortness of breath: Code(s): R06.02 - Shortness of breath Category: Medical Plan: see below (3) SIMON (dyspnea on exertion): Code(s): R06.09 - Other forms of dyspnea Category: Medical Plan: see below Plan This is a 74yo M with asthma/COPD overlap not on home O2, HTN, DM2, peripheral neuropathy, GERD, VIDA on CPAP, mood disorder who presented to [facility] on 09/21/2024 with 3 days of SOB, SIMON, Productive cough and found to have hypoxia due to CAP found on CXR. He was admitted to the medical-surgical unit and treated with ceftriaxone and azithromycin along with methylprednisolone. He was weaned off of oxygen. Procalcitonin low and blood cultures negative. He was discharged on 3 days of cefuroxime, azithromycin, and prednisone. Since then patient has had continued fatigue, malaise, productive cough with yellow/clear colored sputum, shortness of breath, dyspnea on exertion and pedal edema. In July he was taken off his chlorthalidone. Patient had a normal echocardiogram on 07/09/2024 with a normal EF. He had chest x-ray on 10/06/2024 which revealed pulmonary nodules otherwise no other acute processes were noted. When reviewing the patient's BMI it appears in May his BMI was 34. In July his BMI went to 32.7. Now in September his BMI is at 34-35. Concern for diastolic dysfunction. Will refer patient to conditioner tender at this time. BNP ordered at this time. Patient with history of diabetes has been on multiple courses of prednisone. A1c assessed today 6.7. Will continue same regimen no changes in medications. Patient to return in 2 weeks for further evaluation and treatment. Orders: Orders B Type Natriuretic Peptide Today R60.0 - Localized edema AMB Hemoglobin A1c Today E11.65 - Type 2 diabetes mellitus with hyperglycemia Referrals Cardiology Referral R06.02 - Shortness of breath, R06.09 - Other forms of dyspnea, R60.0 - Localized edema
[2024-10-08 13:34] VITALS: BP 150/66; PULSE 64; O2SAT 93; BMI 34.6
== END 2024-10-08 14:44 | disposition home or self-care (01) ==
PROVIDERS: PCP Internal Medicine; Visit Provider Physician Assistant Medical
DX: R60.0 Localized edema (principal); R06.02 Shortness of breath; R06.09 Other forms of dyspnea; E11.65 Type 2 diabetes mellitus with hyperglycemia

== ENCOUNTER → 2024-10-08 13:27 | Outpatient (BNVA) | payer MEDICARE, SELFPAY | PROVIDERS: PCP Internal Medicine; Visit Provider Physician Assistant Medical | DX: R60.0 Localized edema (principal); R06.02 Shortness of breath; R06.09 Other forms of dyspnea; I10 Essential (primary) hypertension; J45.909 Unspecified asthma, uncomplicated; G47.33 Obstructive sleep apnea (adult) (pediatric); E11.9 Type 2 diabetes mellitus without complications | CPT/HCPCS: 83036; 99495 ==

== ENCOUNTER 2024-10-17 14:00 | Outpatient (AMB) | payer MEDICARE, SELFPAY ==
--- OUTSIDE RECORDS SUMMARY | 2024-10-17 14:03 | XMS_ITS | Patient Health Record ---
Author Organization [facility] Address [address] [place] [id number] Care Team Providers Care Cassandra Consultant Name Role Phone MARIA TERESA DENIS Primary Care Provider Rahat Gallo Jr Unavailable ALLERGIES Allergen (clinical drug ingredient) Drug/Non Drug [...] azaTHIOprine 50 MG TAKE 3 TABLETS BY [facility] EVERY DAY Orally for 30 days [...] reflux disease without esophagitis (K21.9) Active confirmed 114290141 Problem Crohn's disease of small intestine with intestinal obstruction (K50.012) Active confirmed 46576065 Problem Encounter for therapeutic drug level monitoring (Z51.81) Active confirmed 581149571 Problem Crohns disease of small intestine with intestinal obstruction (K50.012) Active confirmed Crohn's disease of small intestine (48607490) PLAN OF TREATMENT Pending Test Test Name [...] [employer] Medicare Adv (PPO) [address] [address] [place] [address] [id number] NINO ACOSTA Self - patient is the insured MEDICAL (GENERAL) HISTORY Medical History History ICD Code Crohn's disease, small intes sathya, diagnosed 2014, previous therapy with mesalamine, currently on azathioprine GERD asthma degenerative joint disease hypertension back pain colon polyps gastritis COPD diabetes mellitus - no longer no has Denies [place],CVA,renal disease Surgical History Surgery Date(Month/Year)
[2024-10-17 14:15] VITALS: BP 150/68; PULSE 60; O2SAT 94; BMI 34.8
--- NOTE | 2024-10-17 14:15 | A.OFFPC_ITS ---
Vital Signs 10/17/24 14:15 Height 5 ft 8 in Weight 229 lb BMI 34.8 BP 150/68 H Blood Pressure Location Lt brachial Position Sitting Pulse 60 Pulse Source Pulse Oximeter Pulse Oximetry (%) 94 Oxygen Delivery Method Room Air Intake Visit Reasons: 3 month f/u Intake Note: Patient here for a 3 month follow up Fundraising Assistant Required: No Accompanied by: Self / Same As Patient Allergies hydrocortisone [HYDROCORTISONE] Allergy (Severe, Verified 10/17/24 14:41) SWELLING NSAIDS (Non-Steroidal Anti-Inflamma [NSAIDS (NON-STEROIDAL ANTI-INFLAMMA] Allergy (Severe, Verified 10/17/24 14:41) BLEEDING aspirin Allergy (Unknown, Verified 10/17/24 14:41) bleeding doxycycline Adverse Reaction (Severe, Verified 10/17/24 14:41) in-effective Medication List - Last Reconciled 10/17/24 by Christal Russell PA-C albuterol sulfate 90 mcg/actuation 2 puffs inhalation Q4H PRN albuterol sulfate 2.5 mg (3 mL) inhalation Q4H PRN brimonidine 0.2% 1 drp ophthalmic-Left BID clonazepam 0.5 mg PO BID PRN codeine-guaifenesin 10-100 mg/5 mL 10 mL PO Q6H PRN gabapentin 300 mg BID insulin glargine (Lantus Solostar U-100 Insulin) 30 units subcut BEDTIME insulin lispro (Humalog KwikPen (U-100) Insulin) 20 units subcut TIDAC PRN insulin syringe,safety needle As directed latanoprost 0.005% 1 drp ophthalmic-Left BEDTIME levofloxacin 750 mg PO DAILY 7 days metoprolol succinate ER 50 mg PO DAILY pantoprazole 20 mg PO DAILY@0630 pen needle, diabetic (Comfort EZ Pen [place]) Use 3 times daily with insulin prednisone 40 mg (2 x 20 mg) PO DAILY timolol maleate 0.5% 1 drp ophthalmic-Left BID venlafaxine ER 150 mg PO BID zolpidem 5 mg PO BEDTIME Tobacco use date assessed: 10/08/24 Fall risk assessment: No Falls in past year Last assessed Fall Risk: 10/17/24 Dental Screening Dental Screen Date: 10/17/24 Did you have a dental visit in the last 12 months?: Yes Did you have a dental problem in the last 6 months where you did not have access to dental care?: No Was dental information given to patient?: Patient has dentist [facility] Medical History SIMON (dyspnea on exertion) Shortness of breath Pedal edema Chest pain in adult Class 2 severe obesity with body mass index (BMI) of 35 to 39.9 with serious comorbidity Bilateral primary osteoarthritis of knee Osteoarthritis of right knee Diabetes mellitus type 2, uncontrolled COPD exacerbation Arthritis of both knees Chronic pain syndrome Allergic rhinitis VIDA on CPAP COPD (chronic obstructive pulmonary disease) Lumbar radiculopathy Allergic rhinitis Asthma Benign prostatic hyperplasia Back pain Sleep apnea HTN (hypertension) Lumbar spondylosis Tendon tear Depression Arthritis Asthma Crohn disease Surgical History H/O colonoscopy Family History Father No problems noted. Mother No problems noted. Social History Household Members: Family Housing: House Do you presently have visiting nurse or other home services: No Alcohol intake: never Comment: pain 3-4 left knee and buttock Patient Tobacco Use Status: Former Tobacco user e-Cigarette/Vaping Use: Never Used Second Hand Smoke Exposure: Yes Advance Directives Date on File: 07/07/24 service: No Current occupational status: retired Cognitive needs: Yes (cane) Hearing needs: No Vision needs: Yes (Glasses) Questionnaire Thrive Questionnaire Date Thrive assessed: 09/22/24 ESTELLA-7 AMB Questionnaire ESTELLA-7 Date ESTELLA - 7 assessed: 04/10/24 Source: Developed by Drs. Santiago Schwartz, Ana María Deleon, Osbaldo Alexander and colleagues, with an educational jose de jesus from [employer]. Physical exam (Primary Care) Vital Signs: Last Vital Signs Pulse 60 10/17/24 14:15 BP 150/68 H 10/17/24 14:15 Pulse Ox 94 10/17/24 14:15 Oxygen Delivery Method Room Air 10/17/24 14:15 BMI result Body Mass Index 34.8 Tobacco/Smoking Status: Tobacco use Status Tobacco use date assessed 10/08/24 10/17/24 14:21 Patient Tobacco Use Status Former Tobacco user 10/17/24 14:21 e-Cigarette/Vaping Use Never Used 10/17/24 14:21 Thrive Assessment: Date of Thrive Assessment Date Thrive assessed 09/22/24 10/17/24 14:21 Coding Level of Care Code Est Pt Level 4 (14993) Complex EM visit Add On G2211 Diagnoses SIMON (dyspnea on exertion) R06.09 Shortness of breath R06.02 Pedal edema R60.0 Assessment & Plan Assessment & Plan (1) SIMON (dyspnea on exertion): Code(s): R06.09 - Other forms of dyspnea Category: Medical Plan: see below (2) Shortness of breath: Code(s): R06.02 - Shortness of breath Category: Medical Plan: see below (3) Pedal edema: Code(s): R60.0 - Localized edema Category: Medical Plan: see below Plan Plan - Cardiology referral has been initiated for evaluation of heart failure. - Bloodwork will assess fluid status and guide diuretic management. - Recommended completion of antibiotic course for pneumonia. - Monitor progress and respiratory symptoms; assess for possible reinstatement of chlorothiazide if fluid overload is suggested by lab results. Patient Instructions: Patient Instructions - Proceed to the laboratory across the street for the ordered blood tests. - Complete the course of antibiotics as previously prescribed if not finished. - Use three pillows when sleeping to help with shortness of breath. - Await contact to discuss blood test results and potential medication changes. - Follow up after the cardiology consultation. Scribe Plan - Not visible on output: History of Present Illness The patient is a 74-year-old male presenting with Shortness of breath, dyspnea on exertion and intermittent cough. Several months ago, the patient was removed from a diuretic, chlorthiadone, due to an episode of hypokalemia. At that time on 07/09/2024, he had a normal echocardiogram with a normal EF. Since then, he has experienced persistent dyspnea and was thought to have developed pneumonia. He was hospitalized on two occasions, with a third instance resulting in outpatient antibiotic treatment. Antibiotics were not complete, and his primary symptoms include persistent SOB/SIMON, although he notes an improvement in his cough with minimal mucus production. Sleeping arrangements include an elevated head position using three pillows due to positional dyspnea concerns. No significant weight gain or fluid retention has been noted. He forgot to get the blood work that was ordered at the last visit. He reports that he can get the blood work done today. He denies any other symptoms complaints or concerns at this time. Social History - Patient uses three pillows for sleeping to manage dyspnea. - No current gain in weight, indicating no fluid retention complications. Review of Systems - Respiratory: Reports persistent dyspnea. - Respiratory: Denies significant sputum production. Physical Exam Appearance: Alert. Oriented X3. No acute distress. Head: Normal external exam. Normocephalic. Atraumatic. Eyes: Pupils are equal, round, and reactive to light. Extraocular movements intact. Conjunctiva and sclera normal. Eyelids normal. Ears: External auditory canal normal. Tympanic membranes normal. Throat: Pharynx normal. Uvula midline. Moist mucous membranes. Neck: Normal inspection. Neck supple. Full range of motion. No adenopathy. No meningeal signs. Cardiovascular: Normal heart rate and rhythm. Heart sound normal. No murmurs noted. Pulses normal throughout. Respiratory: No respiratory distress. Painless inspiration. Breath sounds normal. No wheezes/rales/rhonchi noted. Chest nontender. No accessory muscle usage noted or decreased air movement noted. Abdomen: Soft and nontender. Bowel sounds normal in all 4 quadrants. No distention noted. No organomegaly noted. No visible injury noted. Back: No costovertebral angle tenderness. Full range of motion noted. Skin: Skin warm and dry. Normal skin color. Normal skin turgor. No rashes/lesio ns/lacerations noted. Extremities: +2 lower extremity edema. Extremities exhibit normal range of motion. Extremities nontender. Neuro: Oriented X 3. No motor deficit. No sensory deficit. Reflexes normal. Plan - Cardiology referral has been initiated for evaluation of heart failure. - Bloodwork will assess fluid status and guide diuretic management. - Recommended completion of antibiotic course for pneumonia. - Monitor progress and respiratory symptoms; assess for possible reinstatement of chlorothiazide if fluid overload is suggested by lab results. Patient was informed and verbally consented to the use of an ambient scribe for clinic note documentation during this visit. Discussion Notes I discussed with the patient the need for bloodwork to assess fluid overload as a reason for his persistent breathlessness. I emphasized the importance of completing the course of antibiotics for pneumonia treatment. I have referred him to a microwave radio technician to further evaluate his heart condition and adjust medications as necessary. We discussed the potential for restarting his water pill pending lab results. His heart and lung examinations were reassuring. Follow-up instructions were given. Patient Instructions - Proceed to the laboratory across the street for the ordered blood tests. - Complete the course of antibiotics as previously prescribed if not finished. - Use three pillows when sleeping to help with shortness of breath. - Await contact to discuss blood test results and potential medication changes. - Follow up after the cardiology consultation.
== END 2024-10-17 15:41 | disposition home or self-care (01) ==
PROVIDERS: PCP Internal Medicine; Visit Provider Physician Assistant Medical
DX: R06.09 Other forms of dyspnea (principal); R06.02 Shortness of breath; R60.0 Localized edema

== ENCOUNTER 2024-10-17 14:00 | Outpatient (REF) | payer MEDICARE, SELFPAY ==
[2024-10-17 16:05] LABS: B Type Natriuretic Peptide 120 pg/mL (<100)
== END 2024-10-17 14:01 | disposition home or self-care (01) ==
LOC: HO.LAB 14:00
PROVIDERS: PCP Internal Medicine; Visit Provider Physician Assistant Medical
DX: R06.09 Other forms of dyspnea (principal); R06.02 Shortness of breath; R60.0 Localized edema
CPT/HCPCS: 36415; 83880; 99212

== ENCOUNTER 2024-10-26 17:21 | Emergency (ER) | payer MEDICARE, SELFPAY ==
[2024-10-26] VITALS (8 sets, daily range): BP systolic 167–184; BP diastolic 76–105; PULSE 73–90; RESP 12–20; TEMP 36.6–37.1; O2SAT 86–93; BMI 32.5
--- NOTE | ~2024-10-26 | XR_ITS ---
CLINICAL HISTORY: SOB 2 view chest x-ray Comparison: 10/07/2024 Findings: Improved aeration of both lungs relative to comparison. Mild bibasilar atelectasis of the pneumonitis persists. Mild emphysematous changes are redemonstrated. Imaged mediastinum appears unchanged. No pneumothorax or pleural effusion. Degenerative changes again noted imaged shoulders and imaged spine. IMPRESSION: 1. Mild bibasilar atelectasis/pneumonitis, right worse than left. 2. Continued improved aeration of both lungs. This document has been electronically signed by: Merrick Lozano MD on 10/26/2024 18:57:01
--- NOTE | 2024-10-26 17:47 | ED.GENADULT ---
HPI - General Adult General Chief complaint: Dyspnea Stated complaint: copd/asthma Time Seen by Provider: 10/26/24 18:06 History of Present Illness ED Provider: Marquise STERN narrative: The patient is a 74-year-old male with a history of COPD who says that he became rather abruptly short of breath at around 15:00 this afternoon. He developed coughing and wheezing fairly quickly. He felt short of breath and he had a family member bring him to the hospital. No definite fever. Related Data Home Medications ?Medication ?Instructions ?Recorded ?Confirmed latanoprost 0.005 % eye drops 1 drp ophthalmic-Left BEDTIME 11/17/21 10/08/24 brimonidine 0.2 % eye drops 1 drp ophthalmic-Left BID 05/18/23 10/08/24 albuterol sulfate 90 mcg/actuation 2 puff inhalation Q4H PRN for 06/19/24 10/08/24 aerosol inhaler wheezing insulin glargine 100 unit/mL (3 30 unit subcut BEDTIME 06/19/24 10/08/24 mL) subcutaneous pen (Lantus Solostar U-100 Insulin) timolol maleate 0.5 % eye drops 1 drp ophthalmic-Left BID 06/24/24 10/08/24 insulin lispro 100 unit/mL 20 unit subcut TIDAC PRN Blood 09/21/24 10/08/24 subcutaneous pen (Humalog KwikPen Sugar Levels (U-100) Insulin) Previous Rx's ?Medication ?Instructions ?Recorded insulin syringe,safety needle 0.3 #100 ea 09/28/21 mL 29 gauge x 1/2 pen needle, diabetic 32 gauge x #100 ea 04/09/22 5/16 (Comfort EZ Pen [place]) metoprolol succinate 50 mg 50 mg PO DAILY #90 tabs 06/27/24 tablet,extended release 24 hr pantoprazole 20 mg tablet,delayed 20 mg PO DAILY@0630 #90 tabs 06/27/24 release albuterol sulfate 2.5 mg/3 mL 2.5 mg (3 mL) inhalation Q4H PRN 08/09/24 (0.083 %) solution for nebulization shortness of breath or wheezing #90 mL clonazepam 0.5 mg tablet 0.5 mg PO BID PRN anxiety #60 tabs 09/25/24 venlafaxine 150 mg 150 mg PO BID #60 caps 09/25/24 capsule,extended release 24 hr zolpidem 5 mg tablet 5 mg PO BEDTIME #30 tabs 09/25/24 codeine 10 mg-guaifenesin 100 mg/5 10 ml PO Q6H PRN cough #237 mL 10/07/24 mL oral liquid levofloxacin 750 mg tablet 750 mg PO DAILY 7 days #7 tabs 10/07/24 prednisone 20 mg tablet 40 mg (2 x 20 mg) PO DAILY #10 tabs 10/07/24 gabapentin 300 mg capsule 300 mg PO BID #180 caps 10/19/24 doxycycline monohydrate 100 mg 100 mg PO BID #14 caps 10/26/24 capsule prednisone 20 mg tablet 20 mg PO DAILY #12 tabs 10/26/24 Allergies Allergy/AdvReac Type Severity Reaction Status Date / Time hydrocortisone Allergy Severe SWELLING Verified 10/26/24 17:48 [HYDROCORTISONE] NSAIDS (Non-Steroidal Allergy Severe BLEEDING Verified 10/17/24 14:41 Anti-Inflamma [NSAIDS (NON-STEROIDAL ANTI-INFLAMMA] aspirin Allergy Unknown bleeding Verified 10/17/24 14:41 doxycycline AdvReac Severe in-effectiv Verified 10/17/24 14:41 e Review of Systems Review of Systems: Yes all other systems are reviewed and are negative PMFSH Past Medical History Medical History SIMON (dyspnea on exertion) Shortness of breath Pedal edema Chest pain in adult Class 2 severe obesity with body mass index (BMI) of 35 to 39.9 with serious comorbidity Bilateral primary osteoarthritis of knee Osteoarthritis of right knee Diabetes mellitus type 2, uncontrolled COPD exacerbation Arthritis of both knees Chronic pain syndrome Allergic rhinitis VIDA on CPAP COPD (chronic obstructive pulmonary disease) Lumbar radiculopathy Allergic rhinitis Asthma Benign prostatic hyperplasia Back pain Sleep apnea HTN (hypertension) Lumbar spondylosis Tendon tear Depression Arthritis Asthma Crohn disease Surgical History H/O colonoscopy Family History Family History Father No problems noted. Mother No problems noted. Social History Social History Household Members: Family Housing: House Do you presently have visiting nurse or other home services: No Alcohol intake: never Comment: pain 3-4 left knee and buttock Patient Tobacco Use Status: Former Tobacco user e-Cigarette/Vaping Use: Never Used Second Hand Smoke Exposure: Yes Advance Directives: Yes Advance Directives on File: Yes Advance Directives Date on File: 07/07/24 Do you have a plan to hurt others: No Plan service: No Current occupational status: retired Cognitive needs: Yes (cane) Hearing needs: No Vision needs: Yes (Glasses) Physical Exam ED Vital Signs: Vital Signs - 24 hr 10/26/24 17:45 10/26/24 17:57 10/26/24 18:07 Temperature 98.4 F 98.1 F Pulse Rate 76 74 73 Respiratory Rate 20 12 18 Blood Pressure 181/105 H 175/78 H Pulse Oximetry 86 L 93 Oxygen Delivery Method Room Air Room Air 10/26/24 19:10 10/26/24 19:30 10/26/24 20:05 Temperature 98.7 F Pulse Rate 80 75 81 Respiratory Rate 18 14 18 Blood Pressure 167/83 H Pulse Oximetry 92 Oxygen Delivery Method Room Air 10/26/24 21:57 10/26/24 22:24 Temperature 97.9 F 97.9 F Pulse Rate 90 90 Respiratory Rate 18 18 Blood Pressure 184/76 H 184/76 H Pulse Oximetry 93 93 Oxygen Delivery Method Room Air Room Air BMI result Body Mass Index 32.5 Const Other: The patient is a pleasant elderly man who was awake and alert. He does not appear in overt distress. He was coughing frequently. [facility] Head: Yes normal to inspection Face and sinus: Yes normal facial exam Mouth: Normal oral and palatal mucosa present and moist mucous membranes Eyes General: appearance normal, both eyes and all related structures Neck Neck: Yes full ROM and Yes no JVD Resp Other: Inspiratory and expiratory wheezes bilaterally. Cardio Rate: regular rate Rhythm: regular rhythm Heart sounds: S1 normal heart sound present and S2 normal heart sound present GI Other: The abdomen is soft and nontender Skin Other: Skin is dry and unremarkable Neuro Other: The patient is awake and alert with a normal mental status. Cranial nerves are grossly intact. He moves his extremities normally and appropriately. Extrem Other: No calf asymmetry or tenderness Course Course Course Narrative: RME performed by An Howell PA-C. Patient is a 74 year old assigned male at presenting to the emergency department with SOB / difficulty breathing. Detailed physical exam and review of systems are deferred to the microsoft systems engineer. EKG, labs, imaging, and swabs ordered. Patient placed back in the waiting room pending room availability and results. Medications Administered Discontinued Medications Generic Name Dose Route Start Last Admin Trade Name Sudhakar PRN Reason Stop Dose Admin Albuterol/Ipratropium 3 ml 10/26/24 18:47 10/26/24 19:04 Albuterol/Iprat 2.5/0.5mg 3 Ml Ampul.Neb INHALE 10/26/24 18:48 3 ml ONCE ONE Administration Albuterol/Ipratropium 3 ml 10/26/24 20:32 10/26/24 21:27 Albuterol/Iprat 2.5/0.5mg 3 Ml Ampul.Neb INHALE 10/26/24 20:33 3 ml ONCE ONE Administration Albuterol Sulfate 2.5 mg/ 0 mg 10/26/24 17:59 10/26/24 18:05 Albuterol/Ipratropium 3 ml INHALE 10/26/24 18:00 1 dose ONCE ONE Administration Albuterol Sulfate 2.5 mg/ 0 mg 10/26/24 19:51 10/26/24 19:59 Albuterol/Ipratropium 3 ml INHALE 10/26/24 19:52 1 dose ONCE ONE Administration Doxycycline Monohydrate 100 mg 10/26/24 20:32 10/26/24 20:39 Doxycycline Monohydrate 100 Mg Capsule PO 10/26/24 20:33 100 mg ONCE ONE Administration Prednisone 60 mg 10/26/24 18:37 10/26/24 18:51 Prednisone 20 Mg Tablet PO 10/26/24 18:38 60 mg ONCE ONE Administration Medical Decision Making Medical Decision Making MDM Narrative: The patient presents with acute cough, shortness of breath, and wheezing. His physical exam is consistent with a COPD exacerbation. He was treated with multiple bronchodilator treatments. He was given 60 mg of prednisone. He was also started on doxycycline. After several updrafts he ultimately felt that he was well enough to go home. He has a nebulizer machine at home. Should return if worse. Lab Data 10/26/24 18:19 12/27/24 18:19 Labs: Lab Results 10/26/24 Range/Units 18:19 WBC 7.4 (4.8-10.8) X10*3/uL RBC 4.71 (4.60-5.80) X10*6/uL Hgb 13.6 L (14.0-18.0) g/dl Hct 40.7 L (42.0-52.0) % MCV 86.4 (80.0-98.0) fL MCH 28.9 (27.0-33.0) pg MCHC 33.4 (31.0-36.0) g/dl RDW 13.1 (11.0-16.0) % Plt Count 263 D (160-400) X10*3/uL MPV 11.0 (9.4-12.4) fL Immature Gran % (Auto) 0.4 (0.0-0.4) % Neut % (Auto) 73.8 H (45-73) % Lymph % (Auto) 14.0 L (20-40) % [place] % (Auto) 6.5 (2-11) % Eos % (Auto) 4.8 H (0-4) % Baso % (Auto) 0.5 (0-2) % Lymph # (Auto) 1.0 L (1.2-4.9) X10*3/uL [place] # (Auto) 0.5 (0.1-1.2) X10*3/uL Eos # (Auto) 0.4 (0.0-0.4) X10*3/uL Baso # (Auto) 0.0 (0.0-0.2) X10*3/uL Abs Immat Gran (auto) 0.03 (0.00-0.03) X10*3/uL Absolute Neuts (auto) 5.4 (2.0-8.3) x10*3/uL Absolute Nucleated RBC 0.000 (0.0-0.012) X10*3/uL Nucleated RBC % (auto) 0.0 (0.0-0.2) /100WBC Sodium 145 (135-145) mmol/L Potassium 3.3 D (3.3-5.1) mmol/L Chloride 102 (96-108) mmol/L Carbon Dioxide 28 (22-29) mmol/L Anion Gap 18 (12-20) BUN 12 (9-16) mg/dL Creatinine 0.75 (0.5-1.4) mg/dL Estim Creat Clear Calc 97.5 Estimated GFR > 60 Random Glucose 150 H (60-115) mg/dL Calcium 9.1 (8.4-10.2) mg/dL Magnesium 1.7 (1.6-2.6) mg/dL Total Bilirubin 0.6 (0.0-1.0) mg/dL AST 25 (5-37) U/L ALT 20 (0-40) U/L Alkaline Phosphatase 106 (39-117) U/L Troponin I High Sens < 2.7 D (<3.5-35.0) ng/L Total Protein 6.6 (6.5-8.0) g/dL Albumin 3.6 (3.5-5.0) g/dL Influenza Type A (PCR) NEGATIVE (Negative) Influenza Type B (PCR) NEGATIVE (Negative) RSV RNA Qual (PCR) NEGATIVE (Negative) SARS-CoV-2 RNA (RT-PCR) NEGATIVE (Negative) Independent Interpretation I performed an independent interpretation of an: EKG Interpretation: EKG at 1826 shows normal sinus rhythm at 74 beats per minute. It is an unremarkable EKG. Discharge Plan Discharge Clinical Impression: Acute exacerbation of chronic obstructive pulmonary disease Patient Disposition: Home, Self-Care Instructions: COPD (Chronic Obstructive Pulmonary Disease) (ED) Additional Instructions: Please continue using your nebulizer every 4 hours as needed. Please take the prednisone once a day as prescribed. Please take the antibiotic doxycycline 2 times a day as prescribed. Drink lot of fluids. Please follow up soon with your regular doctor. Call on Tuesday for an appointment. Return to the emergency room if you feel significantly worse. Prescriptions: New prednisone 20 mg tablet 20 mg PO DAILY Qty: 12 0RF Rx Instructions: Take 3 tablets by mouth daily for 2 days then take 2 tablets by mouth daily for 3 days. doxycycline monohydrate 100 mg capsule 100 mg PO BID Qty: 14 0RF No Action (DME) insulin syringe,safety needle 0.3 mL 29 x 1/2 syringe See Rx Instructions .Route Qty: 100 0RF Rx Instructions: As directed (DME) Comfort EZ Pen [place] 32 gauge x 5/16 needle See Rx Instructions .Route Qty: 100 0RF Rx Instructions: Use 3 times daily with insulin metoprolol succinate 50 mg tablet extended release 24 hr 50 mg PO DAILY Qty: 90 1RF pantoprazole 20 mg tablet,delayed release (DR/EC) 20 mg PO DAILY@0630 Qty: 90 1RF albuterol sulfate 2.5 mg /3 mL (0.083 %) solution for nebulization 2.5 mg inhalation Q4H PRN (Reason: shortness of breath or wheezing) Qty: 90 3RF gabapentin 300 mg capsule 300 mg PO BID Qty: 180 1RF insulin lispro [Humalog KwikPen Insulin] 100 unit/mL insulin pen 20 unit subcut TIDAC PRN (Reason: Blood Sugar Levels) albuterol sulfate 90 mcg/actuation HFA aerosol inhaler 2 puff inhalation Q4H PRN (Reason: for wheezing) insulin glargine [Lantus Solostar U-100 Insulin] 100 unit/mL (3 mL) insulin pen 30 unit subcut BEDTIME timolol maleate 0.5 % drops 1 drp ophthalmic-Left BID levofloxacin 750 mg tablet 750 mg PO DAILY 7 Days Qty: 7 0RF prednisone 20 mg tablet 40 mg PO DAILY Qty: 10 0RF codeine-guaifenesin 10-100 mg/5 mL liquid 10 ml PO Q6H PRN (Reason: cough) Qty: 237 0RF latanoprost 0.005 % drops 1 drp ophthalmic-Left BEDTIME brimonidine 0.2 % drops 1 drp ophthalmic-Left BID venlafaxine 150 mg capsule,extended release 24hr 150 mg PO BID Qty: 60 2RF zolpidem 5 mg tablet 5 mg PO BEDTIME Qty: 30 2RF clonazepam 0.5 mg tablet 0.5 mg PO BID PRN (Reason: anxiety) Qty: 60 2RF Referrals: Hector Cherry MD [Primary Care Provider] - (COPD exacerbation) Interventions: ED Discharge Assessment Last Done: 10/26/24 22:24 Discharge Date/Time: 10/26/24 22:25 Print Language: Mongolian
--- NOTE | 2024-10-26 17:48 | ECG_ITS ---
Test Reason : sob Blood Pressure : / mmHG Vent. Rate : 074 BPM Atrial Rate : 074 BPM P-R Int : 162 ms QRS Dur : 100 ms QT Int : 424 ms P-R-T Axes : 053 -03 023 degrees QTc Int : 470 ms Normal sinus rhythm Normal ECG When compared with ECG of 07-OCT-2024 03:05, No significant change was found Referred By: An Howell Electronically Signed By:Kaden More
[2024-10-26] MEDS: Albuterol Sulfate 2.5 MG, Albuterol/Iprat 2.5/0.5MG 3 ML 3 ML INHALE ×2 (18:05→19:59)
[2024-10-26 18:25] LABS: MANUAL DIFF FLAG NO
[2024-10-26 18:37] LABS: Basophils Percent Auto 0.5 % (0-2); Eosinophils Absolute Auto 0.4 X10*3/uL (0.0-0.4); Eosinophils Percent Auto 4.8 % (0-4); Hematocrit 40.7 % (42.0-52.0); Hemoglobin 13.6 g/dl (14.0-18.0); Imm Gran Abs Auto 0.03 X10*3/uL (0.00-0.03); Imm Gran Pct Auto 0.4 % (0.0-0.4); Mean Corpuscular HGB Conc 33.4 g/dl (31.0-36.0); Mean Corpuscular Hemoglobin 28.9 pg (27.0-33.0); Mean Corpuscular Volume 86.4 fL (80.0-98.0); Monocytes Absolute Auto 0.5 X10*3/uL (0.1-1.2); Monocytes Percent Auto 6.5 % (2-11); Neutrophils Absolute Auto 5.4 x10*3/uL (2.0-8.3); Neutrophils Percent Auto 73.8 % (45-73); Platelet Count 263 X10*3/uL (160-400); Red Blood Count 4.71 X10*6/uL (4.60-5.80); Red Cell Distribution Width 13.1 % (11.0-16.0); White Blood Count 7.4 X10*3/uL (4.8-10.8)
[2024-10-26 18:40] LABS: Alanine Aminotransferase 20 U/L (0-40); Albumin Level 3.6 g/dL (3.5-5.0); Alkaline Phosphatase 106 U/L (39-117); Anion Gap 18 (12-20); Aspartate Amino Transferase 25 U/L (5-37); Bilirubin Total 0.6 mg/dL (0.0-1.0); Blood Urea Nitrogen 12 mg/dL (9-16); Calcium 9.1 mg/dL (8.4-10.2); Carbon Dioxide 28 mmol/L (22-29); Chloride 102 mmol/L (96-108); Creatinine Clr Calc Pharmacy 97.5; Estimated Glomerular Filt Rate > 60; Glucose Random 150 mg/dL (60-115); Magnesium 1.7 mg/dL (1.6-2.6); Potassium 3.3 mmol/L (3.3-5.1); Sodium 145 mmol/L (135-145); Total Protein 6.6 g/dL (6.5-8.0)
[2024-10-26 18:48] LABS: Troponin-I High Sensitivity < 2.7 ng/L (<3.5-35.0)
[2024-10-26] MEDS: predniSONE 20 MG TABLET 60 MG PO (18:51)
[2024-10-26 19:04] LABS: Influenza A PCR NEGATIVE (Negative); Influenza B PCR NEGATIVE (Negative); Resp Syncy Virus RNA Qual PCR NEGATIVE (Negative); SARS COV2 PCR INHOUSE NEGATIVE (Negative)
[2024-10-26] MEDS: Albuterol/Iprat 2.5/0.5MG 3 ML AMPUL.NEB INHALE ×2 (19:04→21:27)
--- NOTE | 2024-10-26 20:13 | MHC.EDTECH ---
This tech took over care of patient at 1900,rounded and introduced self to pt,vitals taken,patient appears comfortable watching TV,call rivas in reach
[2024-10-26] MEDS: Doxycycline Monohydrate 100 MG CAPSULE PO (20:39)
== END 2024-10-26 22:25 | disposition home or self-care (01) ==
PROVIDERS: Physician Assistant Medical; Emergency Provider Emergency Medicine; PCP Internal Medicine
DX: J44.1 Chronic obstructive pulmonary disease with (acute) exacerbation (principal); R06.02 Shortness of breath; J45.909 Unspecified asthma, uncomplicated; Z79.899 Other long term (current) drug therapy; Z87.891 Personal history of nicotine dependence
CPT/HCPCS: 0241U; 71046; 80053; 83735; 84484; 85025; 93005; 94640; 99285

== ENCOUNTER → 2024-10-26 17:48 | Outpatient (BNV) | payer MEDICARE, SELFPAY | PROVIDERS: Emergency Provider Emergency Medicine; PCP Internal Medicine; Visit Provider Radiology Neuroradiology | DX: J98.11 Atelectasis (principal) | CPT/HCPCS: 71046 ==

== ENCOUNTER → 2024-10-26 17:48 | Outpatient (BNV) | payer MEDICARE, SELFPAY | PROVIDERS: Emergency Provider Emergency Medicine; PCP Internal Medicine; Visit Provider Internal Medicine Cardiovascular Disease | DX: R06.02 Shortness of breath (principal) | CPT/HCPCS: 93010 ==

== ENCOUNTER 2024-11-09 13:00 | Emergency (ER) | payer MEDICARE, SELFPAY ==
[2024-11-09] VITALS (8 sets, daily range): BP systolic 110–162; BP diastolic 70–78; PULSE 69–78; RESP 16–25; TEMP 36.1–37; O2SAT 89–95; BMI 34.2
--- NOTE | ~2024-11-09 | XR_ITS ---
EXAMINATION: XR HAND AND WRIST COMPLETE LEFT HISTORY: fall pain COMPARISON: There are no prior studies available for comparison. FINDINGS: Four views of the left hand and wrist are submitted. There are small cysts in the distal scaphoid and in the proximal phalanx of the index finger. Osseous mineralization is otherwise normal. There is no fracture or dislocation. The joint spaces are preserved. The soft tissues are unremarkable. XR/XR hand wrist LT IMPRESSION: No evidence of fracture of the left hand or wrist. Electronically signed by: Santiago Plata MD 11/09/2024 03:20 PM [facility]
--- NOTE | ~2024-11-09 | CT_ITS ---
EXAMINATION: CT HEAD WITHOUT CONTRAST CLINICAL INFORMATION: Fall, dizziness COMPARISON: 07/20/2021. TECHNIQUE: Contiguous axial imaging was performed from the skull base to vertex without intravenous administration of contrast. This CT examination was performed using dose optimization techniques as appropriate, variously including the following: *Automated exposure control *Adjustment of mA and/or kV according to patient size (this includes techniques or standardized protocols for targeted exams where dose is matched to indication/reason for exam; i.e. extremities or head) *Use of iterative reconstruction technique DLP 727. FINDINGS: There is no acute intra-axial, extra-axial bleed, masses or midline shift there is no acute infarction evolution. There is no edema. Johnson t white matter differentiation is maintained normal. Bone windows reveal no calvarial abnormality. There is no scalp soft tissue abnormality. Bilateral paranasal sinuses and mastoid air cells are well-aerated. Bilateral orbits and the periorbital soft tissues are normal. CT/CT head/brain wo IV con IMPRESSION: No acute intracranial process seen. Electronically signed by: Gregory Ocampo MD 11/09/2024 02:51 PM [facility]
--- NOTE | ~2024-11-09 | XR_ITS ---
EXAMINATION: XR RIBS, LEFT CLINICAL INFORMATION: fall, pain COMPARISON: 10/26/2024 chest x-ray. 08/08/2024 left rib x-rays. TECHNIQUE: PA chest, and 3 views of the left ribs were obtained. FINDINGS: Cardiac, hilar, and mediastinal contours are normal. The aorta is mildly calcified. The lungs are clear bilaterally. Probable mild emphysema. There is no effusion or pneumothorax. Extremely subtle cortical step-off of the anterior left seventh rib, suspicious for fracture but not definitive. No additional fracture seen. XR/XR ribs LT min 3V w CXR1V IMPRESSION: 1. Findings suspicious for a very subtle fracture of the left anterior seventh rib. This is not definitive. No additional fractures seen. 2. The lungs are clear. No pneumothorax or effusion. Electronically signed by: Lj Perez MD 11/09/2024 03:40 PM [facility] [place]
--- NOTE | ~2024-11-09 | XR_ITS ---
EXAMINATION: XR KNEE 4 OR MORE VIEWS RIGHT HISTORY: fall, pain COMPARISON: Comparison is made with the prior examination dated 03/23/2021. FINDINGS: Four views of the right knee are submitted. Osseous mineralization is normal. There is no fracture or dislocation. There is mild joint space narrowing involving the medial compartment. The soft tissues are unremarkable. There is no joint effusion. XR/XR knee RT 4V IMPRESSION: Mild narrowing of the medial compartment. No evidence of fracture of the right knee. Electronically signed by: Santiago Plata MD 11/09/2024 03:16 PM [facility]
--- OUTSIDE RECORDS SUMMARY | 2024-11-09 13:04 | XMS_ITS | Patient Health Record ---
Author Organization [facility] Address [address] [place] [id number] Care Team Providers Care Ware Finisher Name Role Phone MARIA TERESA DENIS Primary [...] azaTHIOprine 50 MG TAKE 3 TABLETS BY [facility] EVERY DAY Orally for 30 days Active [...] reflux disease without esophagitis (K21.9) Active confirmed 047302345 Problem Crohn's disease of small intestine with intestinal obstruction (K50.012) Active confirmed 80929456 Problem Encounter for therapeutic drug level monitoring (Z51.81) Active confirmed 254104639 Problem Crohns disease of small intestine with intestinal obstruction (K50.012) Active confirmed Crohn's disease of small intestine (56682067) PLAN OF TREATMENT Pending Test Test Name [...] [employer] Medicare Adv (PPO) [address] [address] [place] [address] [id number] NINO ACOSTA Self - patient is the insured MEDICAL (GENERAL) HISTORY Medical History History ICD Code Crohn's disease, small intes sathya, diagnosed 2014, previous therapy with mesalamine, currently on azathioprine GERD asthma degenerative joint disease hypertension back pain colon polyps gastritis COPD diabetes mellitus - no longer no has Denies [place],CVA,renal disease Surgical History Surgery Date(Month/Year)
--- NOTE | 2024-11-09 13:47 | ED_ITS ---
HPI - General Adult General Chief complaint: Fall Stated complaint: fall, hurts to cough Time Seen by Provider: 11/09/24 15:07 History of Present Illness ED Provider: Marquise STERN narrative: The patient is a 74-year-old male with a history of asthma. He comes to the emergency room after having had a fall yesterday. He says that he tripped on a rock yesterday and landed on his left side. He landed primarily on his left shoulder. The patient also says that he has been having trouble with shortness of breath over the last several days. He apparently ran out of his albuterol inhaler last night. The patient says that he has been on anticoagulation medication in the past but is not currently on anticoagulants. He was not able to tell me the indication for be on anticoagulation. He says he has been coughing a lot but without bringing up any significant sputum. He says he has pain in the left side of his chest when he coughs. He says that this pain preceded his fall yesterday. No new pain or swelling in his legs. No fevers. Related Data Home Medications ?Medication ?Instructions ?Recorded ?Confirmed latanoprost 0.005 % eye drops 1 drp ophthalmic-Left BEDTIME 11/17/21 10/08/24 brimonidine 0.2 % eye drops 1 drp ophthalmic-Left BID 05/18/23 10/08/24 albuterol sulfate 90 mcg/actuation 2 puff inhalation Q4H PRN for 06/19/24 10/08/24 aerosol inhaler wheezing insulin glargine 100 unit/mL (3 30 unit subcut BEDTIME 06/19/24 10/08/24 mL) subcutaneous pen (Lantus Solostar U-100 Insulin) timolol maleate 0.5 % eye drops 1 drp ophthalmic-Left BID 06/24/24 10/08/24 insulin lispro 100 unit/mL 20 unit subcut TIDAC PRN Blood 09/21/24 10/08/24 subcutaneous pen (Humalog KwikPen Sugar Levels (U-100) Insulin) Previous Rx's ?Medication ?Instructions ?Recorded insulin syringe,safety needle 0.3 #100 ea 09/28/21 mL 29 gauge x 1/2 pen needle, diabetic 32 gauge x #100 ea 04/09/22 5/16 (Comfort EZ Pen [place]) metoprolol succinate 50 mg 50 mg PO DAILY #90 tabs 06/27/24 tablet,extended release 24 hr pantoprazole 20 mg tablet,delayed 20 mg PO DAILY@0630 #90 tabs 06/27/24 release clonazepam 0.5 mg tablet 0.5 mg PO BID PRN anxiety #60 tabs 09/25/24 venlafaxine 150 mg 150 mg PO BID #60 caps 09/25/24 capsule,extended release 24 hr zolpidem 5 mg tablet 5 mg PO BEDTIME #30 tabs 09/25/24 codeine 10 mg-guaifenesin 100 mg/5 10 ml PO Q6H PRN cough #237 mL 10/07/24 mL oral liquid levofloxacin 750 mg tablet 750 mg PO DAILY 7 days #7 tabs 10/07/24 prednisone 20 mg tablet 40 mg (2 x 20 mg) PO DAILY #10 tabs 10/07/24 gabapentin 300 mg capsule 300 mg PO BID #180 caps 10/19/24 doxycycline monohydrate 100 mg 100 mg PO BID #14 caps 10/26/24 capsule prednisone 20 mg tablet 20 mg PO DAILY #12 tabs 10/26/24 albuterol sulfate 2.5 mg/3 mL 2.5 mg (3 mL) inhalation Q4H PRN 10/29/24 (0.083 %) solution for nebulization shortness of breath or wheezing #90 mL azithromycin 250 mg tablet 250 mg PO DAILY 4 days #4 tabs 11/09/24 budesonide-formoterol HFA 160 2 puff inhalation BID #10.2 grams 11/09/24 mcg-4.5 mcg/actuation aerosol inhaler oxycodone 5 mg tablet 5 mg PO Q6H PRN pain #7 tabs 11/09/24 prednisone 20 mg tablet 20 mg PO DAILY #12 tabs 11/09/24 Allergies Allergy/AdvReac Type Severity Reaction Status Date / Time hydrocortisone Allergy Severe SWELLING Verified 11/09/24 13:49 [HYDROCORTISONE] NSAIDS (Non-Steroidal Allergy Severe BLEEDING Verified 11/09/24 13:49 Anti-Inflamma [NSAIDS (NON-STEROIDAL ANTI-INFLAMMA] aspirin Allergy Unknown bleeding Verified 11/09/24 13:49 doxycycline AdvReac Severe in-effectiv Verified 11/09/24 13:49 e Review of Systems 2 Review of Systems: Yes all other systems are reviewed and are negative [facility] Past Medical History Medical History SIMON (dyspnea on exertion) Shortness of breath Pedal edema Chest pain in adult Class 2 severe obesity with body mass index (BMI) of 35 to 39.9 with serious comorbidity Bilateral primary osteoarthritis of knee Osteoarthritis of right knee Diabetes mellitus type 2, uncontrolled COPD exacerbation Arthritis of both knees Chronic pain syndrome Allergic rhinitis VIDA on CPAP COPD (chronic obstructive pulmonary disease) Lumbar radiculopathy Allergic rhinitis Asthma Benign prostatic hyperplasia Back pain Sleep apnea HTN (hypertension) Lumbar spondylosis Tendon tear Depression Arthritis Asthma Crohn disease Surgical History H/O colonoscopy Family History Family History Father No problems noted. Mother No problems noted. Social History Social History Household Members: Family Housing: House Do you presently have visiting nurse or other home services: No Alcohol intake: never Comment: pain 3-4 left knee and buttock Patient Tobacco Use Status: Former Tobacco user Smoked in Last 30 Days: No e-Cigarette/Vaping Use: Never Used Second Hand Smoke Exposure: Yes Advance Directives: Yes Advance Directives on File: Yes Advance Directives Date on File: 07/07/24 service: No Current occupational status: retired Cognitive needs: Yes (cane) Hearing needs: No Vision needs: Yes (Glasses) Physical Exam ED Vital Signs: Vital Signs - 24 hr 11/09/24 13:48 11/09/24 15:13 11/09/24 15:31 Temperature 98.6 F Pulse Rate 78 74 74 Respiratory Rate 16 18 18 Blood Pressure 149/72 H Pulse Oximetry 90 L 95 Oxygen Delivery Method Room Air Room Air 11/09/24 16:00 11/09/24 16:01 11/09/24 16:04 Temperature Pulse Rate 69 71 74 Respiratory Rate Blood Pressure 162/75 H 153/78 H 152/72 H Pulse Oximetry Oxygen Delivery Method 11/09/24 17:18 11/09/24 18:34 Temperature 97.0 F Pulse Rate 70 70 Respiratory Rate 25 H 25 H Blood Pressure 110/70 Pulse Oximetry 95 Oxygen Delivery Method Room Air BMI result Body Mass Index 34.2 Const Other: the patient is a pleasant 74-year-old male. He is awake and alert. Mental status is normal. He does not appear in obvious distress. HENMT Other: Face is symmetrical. Mucous membranes moist. No signs of trauma to the head or the face. Eyes General: appearance normal, both eyes and all related structures Neck Other: No posterior midline C-spine tenderness. No JVD. Chest Other: there is left-sided chest wall tenderness without subcutaneous emphysema or crepitus. Resp Other: Inspiratory and expiratory wheezes bilaterally Cardio Rate: regular rate Rhythm: regular rhythm Heart sounds: S1 normal heart sound present and S2 normal heart sound present GI Other: abdomen is soft nontender Skin Other: abrasion left palm Neuro Other: Awake and alert, normal mental status, normal cranial nerves, moving extremities normally Extrem Other: no peripheral edema Course Course Course Narrative: This is an RME performed by Shaheen Ospina CNP: Additional HPI, ROS, PE not included below will be deferred to primary provider. Patient is a 74 old male who presents emergency department for evaluation. Over the past 5 months he has been experiencing increasing falls, has probably fallen 5 or 6 times. Most recent fall was yesterday. He states he typically has preceding dizziness before the falls. Yesterday he was taking the trash out he went to open the gate he was beginning to feel dizzy and he began falling forward he landed onto his right knee tried to catch himself on the left hand but ultimately struck his left anterior chest against the ground. He denies any head strike or loss of consciousness. He endorses chest pain, pain particularly worse with coughing. Exam: Inspiratory and expiratory wheezing bilaterally, O2 saturation room air 90%, wheezing is audible across the room, reports he recently ran out of inhalers. Sounds present bilaterally. Focal neurological deficits. Pulses present bilaterally. Plan: Serum labs, CXR with rib views, XR left hand/wrist, XR right knee, CT head, EKG Medications Administered Discontinued Medications Generic Name Dose Route Start Last Admin Trade Name Freq PRN Reason Stop Dose Admin Acetaminophen 975 mg 11/09/24 15:52 11/09/24 16:20 Acetaminophen 325 Mg Tablet PO 11/09/24 15:53 975 mg ONCE ONE Administration Albuterol/Ipratropium 3 ml 11/09/24 15:19 11/09/24 15:28 Albuterol/Iprat 2.5/0.5mg 3 Ml Ampul.Neb INHALE 11/09/24 15:20 3 ml ONCE ONE Administration Albuterol Sulfate 2.5 mg/ 0 mg 11/09/24 17:07 11/09/24 17:22 Albuterol/Ipratropium 3 ml INHALE 11/09/24 17:08 5 dose ONCE ONE Administration Albuterol Sulfate 5 mg/ 0 mg 11/09/24 17:17 11/09/24 17:23 Albuterol/Ipratropium 3 ml INHALE 11/09/24 17:18 Not Given ONCE ONE Oxycodone HCl 5 mg 11/09/24 17:07 11/09/24 17:36 Oxycodone Hcl Immed Release 5 Mg Tablet PO 11/09/24 17:08 5 mg ONCE ONE Administration Prednisone 60 mg 11/09/24 15:19 11/09/24 16:20 Prednisone 20 Mg Tablet PO 11/09/24 15:20 60 mg ONCE ONE Administration Medical Decision Making Medical Decision Making [facility] Narrative: The patient is a 74 year-old male who presents with shortness of breath and also for evaluation of injuries of a mechanical fall yesterday. X-ray shows a left sided rib fracture. Clinically patient seems to be experiencing a COPD exacerbation. The patient was treated with steroids and bronchodilator treatments for his COPD and oxycodone for hias rib fracture. he felt better and was eager for discharge. He should return if worse. Lab Data 11/09/24 15:33 11/09/24 15:33 Labs: Lab Results 11/09/24 Range/Units 15:33 WBC 7.2 (4.8-10.8) X10*3/uL RBC 4.89 (4.60-5.80) X10*6/uL Hgb 13.7 L (14.0-18.0) g/dl Hct 41.9 L (42.0-52.0) % MCV 85.7 (80.0-98.0) fL MCH 28.0 (27.0-33.0) pg MCHC 32.7 (31.0-36.0) g/dl RDW 13.4 (11.0-16.0) % Plt Count 236 (160-400) X10*3/uL MPV 11.5 (9.4-12.4) fL Immature Gran % (Auto) 0.6 H (0.0-0.4) % Neut % (Auto) 68.3 (45-73) % Lymph % (Auto) 16.5 L (20-40) % [place] % (Auto) 9.3 (2-11) % Eos % (Auto) 4.7 H (0-4) % Baso % (Auto) 0.6 (0-2) % Lymph # (Auto) 1.2 (1.2-4.9) X10*3/uL [place] # (Auto) 0.7 (0.1-1.2) X10*3/uL Eos # (Auto) 0.3 (0.0-0.4) X10*3/uL Baso # (Auto) 0.0 (0.0-0.2) X10*3/uL Abs Immat Gran (auto) 0.04 H (0.00-0.03) X10*3/uL Absolute Neuts (auto) 4.9 (2.0-8.3) x10*3/uL Absolute Nucleated RBC 0.000 (0.0-0.012) X10*3/uL Nucleated RBC % (auto) 0.0 (0.0-0.2) /100WBC PT 14.1 H (10.9-12.4) SEC INR 1.2 H (0.9-1.1) Sodium 145 (135-145) mmol/L Potassium 3.7 (3.3-5.1) mmol/L Chloride 108 (96-108) mmol/L Carbon Dioxide 32 H (22-29) mmol/L Anion Gap 9 L (12-20) BUN 13 (9-16) mg/dL Creatinine 0.78 (0.5-1.4) mg/dL Estim Creat Clear Calc 96.2 Estimated GFR > 60 Random Glucose 118 H (60-115) mg/dL Calcium 8.7 (8.4-10.2) mg/dL Magnesium 1.7 (1.6-2.6) mg/dL Total Bilirubin 0.3 (0.0-1.0) mg/dL AST 25 (5-37) U/L ALT 14 (0-40) U/L Alkaline Phosphatase 85 (39-117) U/L Troponin I High Sens 4.3 D (<3.5-35.0) ng/L C-Reactive Protein 3.13 H (< or = 0.50) mg/dL B-Natriuretic Peptide 131 H (<100) pg/mL Total Protein 6.1 L (6.5-8.0) g/dL Albumin 3.4 L (3.5-5.0) g/dL Lipase 13 (8-78) U/L Influenza Type A (PCR) NEGATIVE (Negative) Influenza Type B (PCR) NEGATIVE (Negative) RSV RNA Qual (PCR) NEGATIVE (Negative) SARS-CoV-2 RNA (RT-PCR) NEGATIVE (Negative) Independent Interpretation I performed an independent interpretation of an: EKG Interpretation: EKG shows NSR at 71 bpm. normal EKG Discharge Plan Discharge Clinical Impression: Acute exacerbation of chronic obstructive pulmonary disease, Fall, Left rib fracture Patient Disposition: Home, Self-Care Additional Instructions: I believe you are and having another asthma or COPD exacerbation. You have been started on another course of prednisone and azithromycin. Please take these medication once a day as prescribed. Next dose for each of these medications is tomorrow. You have a rib fracture on your x-ray. I have sent a prescription for the pain medication to help manage the pain. You may also take 2 extra-strength acetaminophen (Tylenol) up to 3 times per day for the pain. Please continue to use your nebulizer machine at home every 4 hours for your wheezing. I have also sent an inhaler that you may use as an alternative to your machine. This inhaler has a medication similar to albuterol and also has some inhaled steroid medication. You may use this inhaler as you would use an albuterol inhaler. I would recommend continuing this inhaler even when your breathing is feeling better to help maintain your asthma. When you are feeling well you may cut down to 1 puff 2 times a day. Please follow up soon with your regular doctor. Return to the emergency room if worse. Prescriptions: New prednisone 20 mg tablet 20 mg PO DAILY Qty: 12 0RF Rx Instructions: Take 3 tablets by mouth daily for 2 days then take 2 tablets by mouth daily for 3 days. oxycodone 5 mg tablet 5 mg PO Q6H PRN (Reason: pain) Qty: 7 0RF Rx Instructions: Partial Fill upon patient request. budesonide-formoterol 160-4.5 mcg/actuation HFA aerosol inhaler 2 puff inhalation BID Qty: 10.2 0RF azithromycin 250 mg tablet 250 mg PO DAILY 4 Days Qty: 4 0RF Rx Instructions: start on day 2 of therapy No Action (DME) insulin syringe,safety needle 0.3 mL 29 x 1/2 syringe See Rx Instructions .Route Qty: 100 0RF Rx Instructions: As directed (DME) Comfort EZ Pen [place] 32 gauge x 5/16 needle See Rx Instructions .Route Qty: 100 0RF Rx Instructions: Use 3 times daily with insulin metoprolol succinate 50 mg tablet extended release 24 hr 50 mg PO DAILY Qty: 90 1RF pantoprazole 20 mg tablet,delayed release (DR/EC) 20 mg PO DAILY@0630 Qty: 90 1RF gabapentin 300 mg capsule 300 mg PO BID Qty: 180 1RF albuterol sulfate 2.5 mg /3 mL (0.083 %) solution for nebulization 2.5 mg inhalation Q4H PRN (Reason: shortness of breath or wheezing) Qty: 90 3RF insulin lispro [Humalog KwikPen Insulin] 100 unit/mL insulin pen 20 unit subcut TIDAC PRN (Reason: Blood Sugar Levels) albuterol sulfate 90 mcg/actuation HFA aerosol inhaler 2 puff inhalation Q4H PRN (Reason: for wheezing) insulin glargine [Lantus Solostar U-100 Insulin] 100 unit/mL (3 mL) insulin pen 30 unit subcut BEDTIME timolol maleate 0.5 % drops 1 drp ophthalmic-Left BID levofloxacin 750 mg tablet 750 mg PO DAILY 7 Days Qty: 7 0RF prednisone 20 mg tablet 40 mg PO DAILY Qty: 10 0RF codeine-guaifenesin 10-100 mg/5 mL liquid 10 ml PO Q6H PRN (Reason: cough) Qty: 237 0RF prednisone 20 mg tablet 20 mg PO DAILY Qty: 12 0RF Rx Instructions: Take 3 tablets by mouth daily for 2 days then take 2 tablets by mouth daily for 3 days. doxycycline monohydrate 100 mg capsule 100 mg PO BID Qty: 14 0RF latanoprost 0.005 % drops 1 drp ophthalmic-Left BEDTIME brimonidine 0.2 % drops 1 drp ophthalmic-Left BID venlafaxine 150 mg capsule,extended release 24hr 150 mg PO BID Qty: 60 2RF zolpidem 5 mg tablet 5 mg PO BEDTIME Qty: 30 2RF clonazepam 0.5 mg tablet 0.5 mg PO BID PRN (Reason: anxiety) Qty: 60 2RF Referrals: Hector Cherry MD [Primary Care Provider] - (COPD exacerbation, left rib fracture) Interventions: ED Discharge Assessment Last Done: 11/09/24 18:34 Discharge Date/Time: 11/09/24 18:36 Print Language: Mauritanian
--- NOTE | 2024-11-09 13:51 | ECG_ITS ---
Test Reason : CHEST PAIN Blood Pressure : */* mmHG Vent. Rate : 71 BPM Atrial Rate : 71 BPM P-R Int : 168 ms QRS Dur : 98 ms QT Int : 406 ms P-R-T Axes : 56 14 32 degrees QTcB Int : 441 ms Normal sinus rhythm Normal ECG When compared with ECG of 26-Oct-2024 18:26, No significant change was found Referred By: Tere Ospina Electronically Signed By: CONCHITA HICKS
[2024-11-09] MEDS: Albuterol/Iprat 2.5/0.5MG 3 ML AMPUL.NEB INHALE (15:28)
[2024-11-09 15:38] LABS: MANUAL DIFF FLAG NO
[2024-11-09 15:41] LABS: Basophils Percent Auto 0.6 % (0-2); Eosinophils Absolute Auto 0.3 X10*3/uL (0.0-0.4); Eosinophils Percent Auto 4.7 % (0-4); Hematocrit 41.9 % (42.0-52.0); Hemoglobin 13.7 g/dl (14.0-18.0); Imm Gran Abs Auto 0.04 X10*3/uL (0.00-0.03); Imm Gran Pct Auto 0.6 % (0.0-0.4); Lymphocytes Absolute Auto 1.2 X10*3/uL (1.2-4.9); Lymphocytes Percent Auto 16.5 % (20-40); Mean Corpuscular HGB Conc 32.7 g/dl (31.0-36.0); Mean Corpuscular Volume 85.7 fL (80.0-98.0); Mean Platelet Volume 11.5 fL (9.4-12.4); Monocytes Absolute Auto 0.7 X10*3/uL (0.1-1.2); Monocytes Percent Auto 9.3 % (2-11); Neutrophils Absolute Auto 4.9 x10*3/uL (2.0-8.3); Neutrophils Percent Auto 68.3 % (45-73); Platelet Count 236 X10*3/uL (160-400); Red Blood Count 4.89 X10*6/uL (4.60-5.80); Red Cell Distribution Width 13.4 % (11.0-16.0); White Blood Count 7.2 X10*3/uL (4.8-10.8)
[2024-11-09 15:47] LABS: INTERNATIONAL NORM RATIO 1.2 (0.9-1.1); Prothrombin Time 14.1 SEC (10.9-12.4)
[2024-11-09 16:03] LABS: B Type Natriuretic Peptide 131 pg/mL (<100); Troponin-I High Sensitivity 4.3 ng/L (<3.5-35.0)
[2024-11-09 16:08] LABS: Alanine Aminotransferase 14 U/L (0-40); Albumin Level 3.4 g/dL (3.5-5.0); Alkaline Phosphatase 85 U/L (39-117); Anion Gap 9 (12-20); Aspartate Amino Transferase 25 U/L (5-37); Bilirubin Total 0.3 mg/dL (0.0-1.0); Blood Urea Nitrogen 13 mg/dL (9-16); C Reactive Protein 3.13 mg/dL (< or = 0.50); Calcium 8.7 mg/dL (8.4-10.2); Carbon Dioxide 32 mmol/L (22-29); Chloride 108 mmol/L (96-108); Creatinine Clr Calc Pharmacy 96.2; Estimated Glomerular Filt Rate > 60; Glucose Random 118 mg/dL (60-115); Lipase 13 U/L (8-78); Magnesium 1.7 mg/dL (1.6-2.6); Potassium 3.7 mmol/L (3.3-5.1); Sodium 145 mmol/L (135-145); Total Protein 6.1 g/dL (6.5-8.0)
[2024-11-09] MEDS: Acetaminophen 325 MG TABLET 975 MG PO (16:20)
[2024-11-09] MEDS: predniSONE 20 MG TABLET 60 MG PO (16:20)
[2024-11-09 16:22] LABS: Influenza A PCR NEGATIVE (Negative); Influenza B PCR NEGATIVE (Negative); Resp Syncy Virus RNA Qual PCR NEGATIVE (Negative); SARS COV2 PCR INHOUSE NEGATIVE (Negative)
[2024-11-09] MEDS: Albuterol Sulfate 2.5 MG, Albuterol/Iprat 2.5/0.5MG 3 ML 3 ML INHALE (17:22)
[2024-11-09] MEDS: oxyCODONE HCl Immed Release 5 MG TABLET PO (17:36)
== END 2024-11-09 18:36 | disposition home or self-care (01) ==
PROVIDERS: Nurse Practitioner Family; Emergency Provider Emergency Medicine; PCP Internal Medicine
DX: S22.32XA Fracture of one rib, left side, initial encounter for closed fracture (principal); J44.1 Chronic obstructive pulmonary disease with (acute) exacerbation; M25.512 Pain in left shoulder; R07.89 Other chest pain; R07.81 Pleurodynia; R06.02 Shortness of breath; M25.562 Pain in left knee; M79.642 Pain in left hand; W18.40XA Slipping, tripping and stumbling without falling, unspecified, initial encounter; Y93.89 Activity, other specified; Y92.89 Other specified places as the place of occurrence of the external cause; Y99.8 Other external cause status; Z03.818 Encounter for observation for suspected exposure to other biological agents ruled out; Z79.899 Other long term (current) drug therapy; Z91.81 History of falling
CPT/HCPCS: 0241U; 36415; 70450; 71101; 73110; 73130; 73564; 80053; 83690; 83735; 83880; 84484; 85025; 85610; 86140; 93005; 94640; 99285

== ENCOUNTER → 2024-11-09 13:50 | Outpatient (BNV) | payer MEDICARE, SELFPAY | PROVIDERS: PCP Internal Medicine; Visit Provider Radiology Diagnostic Radiology | DX: R42 Dizziness and giddiness (principal); R07.82 Intercostal pain; M25.561 Pain in right knee | CPT/HCPCS: 70450; 71101; 73564 ==

== ENCOUNTER → 2024-11-09 13:51 | Outpatient (BNV) | payer MEDICARE, SELFPAY | PROVIDERS: Emergency Provider Emergency Medicine; PCP Internal Medicine; Visit Provider Internal Medicine | DX: R07.9 Chest pain, unspecified (principal) | CPT/HCPCS: 93010 ==

== ENCOUNTER 2024-12-13 15:07 | Outpatient (AMB) | payer MEDICARE, SELFPAY ==
[2024-12-13 15:27] VITALS: BP 162/74; PULSE 67; O2SAT 94; BMI 33.8
--- NOTE | 2024-12-13 15:27 | MHC.OFFVIS ---
Vital Signs 12/13/24 15:27 Height 5 ft 8 in Weight 222 lb BMI 33.8 BP 162/74 H Blood Pressure Location Lt brachial Position Sitting Pulse 67 Pulse Source Pulse Oximeter Pulse Oximetry (%) 94 Oxygen Delivery Method Room Air Intake Visit Reasons: COPD Intake Note: pt is here for follow up and is having issues, with some dizziness that also is associated with some shortness of breath, that takes his breath away and almost falls, and he has been falling due to these issues. He also states phlegm in throat and chest stuck in the midddle. Microfiche Duplicator Required: No Allergies hydrocortisone [HYDROCORTISONE] Allergy (Severe, Verified 12/13/24 15:46) SWELLING NSAIDS (Non-Steroidal Anti-Inflamma [NSAIDS (NON-STEROIDAL ANTI-INFLAMMA] Allergy (Severe, Verified 12/13/24 15:46) BLEEDING aspirin Allergy (Unknown, Verified 12/13/24 15:46) bleeding doxycycline Adverse Reaction (Severe, Verified 12/13/24 15:46) in-effective Medication List - Last Reconciled 12/13/24 by Pepe Rojas MD albuterol sulfate 90 mcg/actuation 2 puffs inhalation Q4H PRN albuterol sulfate 2.5 mg (3 mL) inhalation Q4H PRN brimonidine 0.2% 1 drp ophthalmic-Left BID clonazepam 0.5 mg PO BID PRN insulin glargine (Lantus Solostar U-100 Insulin) 30 units subcut BEDTIME insulin lispro (Humalog KwikPen (U-100) Insulin) 20 units subcut TIDAC PRN insulin syringe,safety needle As directed latanoprost 0.005% 1 drp ophthalmic-Left BEDTIME metoprolol succinate ER 50 mg PO DAILY pantoprazole 20 mg PO DAILY@0630 pen needle, diabetic (Comfort EZ Pen [place]) Use 3 times daily with insulin timolol maleate 0.5% 1 drp ophthalmic-Left BID venlafaxine ER 150 mg PO BID zolpidem 5 mg PO BEDTIME Do you need a note to return to daycare/school/sports/work: No HPI HPI COPD: Details: 74 YEARS OLD GENTLEMAN COMES AFTER 3 MONTHS FOR FOLLOW-UP . IN THE MEANTIME HE HAS GONE TO THE EMERGENCY ROOM AND TREATED FOR ACUTE EXACERBATION OF COPD. AT PRESENT HIS MAIN COMPLAINT IS FREQUENT COUGH AND NOT ABLE TO CLEAR THE MUCUS. HE GETS SHORT OF BREATH AND LIGHTHEADED. NO FEVER OR CHILLS. FOR HIS OBSTRUCTIVE SLEEP APNEA HE CONTINUES TO USE CPAP EVERY NIGHT REGULARLY. HAS HAD DIFFICULTY IN GETTING HIS REGULAR MAINTENANCE MEDS SUCH SYMBICORT AND SPIRIVA INHALERS, DUE TO HIGH CO-PAYMENT. SO AT PRESENT HE DOES HAVE MORE FREQUENT BOUTS OF COUGH. AND SHORTNESS OF BREATH PFS Medical History SIMON (dyspnea on exertion) Shortness of breath Pedal edema Chest pain in adult Class 2 severe obesity with body mass index (BMI) of 35 to 39.9 with serious comorbidity Bilateral primary osteoarthritis of knee Osteoarthritis of right knee Diabetes mellitus type 2, uncontrolled COPD exacerbation Arthritis of both knees Chronic pain syndrome Allergic rhinitis VIDA on CPAP COPD (chronic obstructive pulmonary disease) Lumbar radiculopathy Allergic rhinitis Asthma Benign prostatic hyperplasia Back pain Sleep apnea HTN (hypertension) Lumbar spondylosis Tendon tear Depression Arthritis Asthma Crohn disease Surgical History H/O colonoscopy Family History Father No problems noted. Mother No problems noted. Social History Household Members: Family Housing: House Do you presently have visiting nurse or other home services: No Alcohol intake: never Comment: pain 3-4 left knee and buttock Patient Tobacco Use Status: Former Tobacco user e-Cigarette/Vaping Use: Never Used Second Hand Smoke Exposure: Yes Advance Directives Date on File: 07/07/24 service: No Current occupational status: retired Cognitive needs: Yes (cane) Hearing needs: No Vision needs: Yes (Glasses) Review of Systems Const All systems reviewed & are unremarkable except as noted in HPI and below Eyes Reports no additional complaints ENT Reports nasal congestion and Reports nasal discharge (Postnasal discharge off and on) Card Denies chest pain, Denies irregular heart rhythm and Denies dyspnea on exertion Resp Reports as per HPI, Denies dyspnea on exertion and Reports other (Complains of lot of pain over the left mid chest due to fall yesterday) GI Reports heartburn (Symptoms of GERD or controlled) Reports no additional complaints Musc Reports back pain, Reports myalgias and Reports arthralgias Skin/Breast Reports system reviewed and no additional complaints, except as documented Neuro Reports no additional complaints Psych Reports no additional complaints Physical Exam Vital Signs: Last Vital Signs Pulse 67 12/13/24 15:27 BP 162/74 H 12/13/24 15:27 Pulse Ox 94 12/13/24 15:27 Oxygen Delivery Method Room Air 12/13/24 15:27 BMI result Body Mass Index 33.8 Const Other: HE LOOKS OVERWEIGHT, TIRED AND SOMEWHAT DEPRESSED. General: comfortable, no acute distress, alert and awake Orientation/consciousness: patient oriented x3 HEENT Head: Yes normal to inspection General nose exam: No nasal polyps present and No nasal discharge present Face and sinus: Yes sinuses nontender Mouth: oropharynx normal Throat: Yes posterior oropharynx normal Eyes General: appearance normal, both eyes and all related structures Neck Neck: Yes normal visual inspection, Yes no lymphadenopathy, Yes trachea midline and Yes no JVD Thyroid: Thyroid normal Chest Chest palpation & inspection: normal inspection of the chest, normal palpation of entire chest wall and no tenderness Resp Other: PERCUSSION NOTE RESONANT, BREATH SOUNDS ARE VERY DISTANT, WITH PROLONGED EXPIRATORY PHASE. NO WHEEZES OR CREPITATIONS ARE HEARD TODAY. Cardio Palpation: normal PMI Rate: regular rate Rhythm: regular rhythm Heart sounds: no gallops and no murmurs GI Palpation (GI): Soft to palpation, nontender, No hepatosplenomegaly present, no masses and Other GI palpation findings present (ABDOMEN IS MODERATELY PROTUBERANT) Auscultation: normal bowel sounds Back/Spine/Pelvis Thoracic/Lumbar Spine: thoracic and lumbar spine normal to inspection, thoraco-lumbar ROM limited and thoraco-lumbar spasm Skin General skin exam: no rashes or lesions noted Neuro General: patient oriented x3 and no focal motor deficits Cranial nerves: Yes CN's II-XII intact bilaterally Extrem General: Yes normal to inspection, No no joint enlargement (BOTH KNEES ARE SLIGHTLY ENLARGED AND PAINFUL), Yes no clubbing, cyanosis or edema, Yes no calf tenderness and Yes normal gait (NEEDS A CANE) Psych Appearance: grossly normal Speech and movement: Normal speech and movement present Assessment & Plan Assessment & Plan (1) COPD (chronic obstructive pulmonary disease): Comment: THIS GENTLEMAN HAS CHRONIC, MODERATELY SEVERE, ASTHMA/COPD OVERLAP SYNDROME. HE IS STABLE AT THIS TIME WHAT HE GETS SHORT OF BREATH MORE EASILY. COMPLAINS OF INCREASED MUCUS PRODUCTION AND NOT ABLE TO CLEAR AT. HE WAS NOT ABLE TO GET SYMBICORT AND SPIRIVA DUE TO HIGH COST. Code(s): J44.9 - Chronic obstructive pulmonary disease, unspecified Category: Medical Plan: ADVISED TO USE STEAM INHALATION 2 OR 3 TIMES A DAY. USE IPRATROPIUM-ALBUTEROL SOLUTION IN THE NEBULIZER Q 6 HOURS WHILE AWAKE ( TID ) I ALSO ADDED BUDESONIDE 0.5 MG SOLUTION TO USE IN THE NEBULIZER TWICE A DAY. (2) VIDA on CPAP: Comment: THIS GENTLEMAN HAS OBSTRUCTIVE SLEEP APNEA FOR MANY YEARS, HAS BEEN USING HIS CPAP VERY. REGULARLY AT NIGHT HE IS VERY HAPPY WITH HIS NEW CPAP MACHINE AND HAS NO ISSUES WITH THE MASK. Code(s): G47.33 - Obstructive sleep apnea (adult) (pediatric); Z99.89 - Dependence on other enabling machines and devices Category: Medical Plan: ADVISED TO CONTINUE USING THE CPAP EVERY NIGHT (3) Asthma: Comment: He has asthma/COPD overlap syndrome. He gets frequent flare ups of bronchial asthma. Code(s): J45.909 - Unspecified asthma, uncomplicated Category: Medical Plan: UNDER COPD Medications: New ipratropium-albuterol 0.5 mg-3 mg(2.5 mg base)/3 mL 3 mL inhalation Q4-6H PRN 360 mL 3RF COPD 30 days budesonide 0.5 mg (2 mL) inhalation DAILY 120 mL 4RF ASTHMA/COPD Coding Level of Care Code Est Pt Level 3 (37918) Diagnoses COPD (chronic obstructive pulmonary disease) J44.9 VIDA on CPAP G47.33; Z99.89 Asthma J45.909
--- OUTSIDE RECORDS SUMMARY | 2024-12-13 15:59 | XMS_ITS | Patient Health Record ---
Author Organization [facility] Address [address] [place] [id number] Care Team Providers Care Logging Operations Inspector Name Role Phone MARIA TERESA DENIS Primary [...] azaTHIOprine 50 MG TAKE [address] [facility] EVERY DAY Orally for 30 days Active [...] reflux disease without esophagitis (K21.9) Active confirmed 679902177 Problem Crohn's disease of small intestine with intestinal obstruction (K50.012) Active confirmed 31907508 Problem Encounter for therapeutic drug level monitoring (Z51.81) Active confirmed 953084345 Problem Crohns disease of small intestine with intestinal obstruction (K50.012) Active confirmed Crohn's disease of small intestine (71018111) PLAN OF TREATMENT Pending Test Test Name [...] [employer] Medicare Adv (PPO) [address] [address] [place] [address] [id number] NINO ACOSTA Self - patient is the insured MEDICAL (GENERAL) HISTORY Medical History History ICD Code Crohn's disease, small intes sathya, diagnosed 2014, previous therapy with mesalamine, currently on azathioprine GERD asthma degenerative joint disease hypertension back pain colon polyps gastritis COPD diabetes mellitus - no longer no has Denies HI,CVA,renal disease Surgical History Surgery Date(Month/Year)
== END 2024-12-13 15:47 | disposition home or self-care (01) ==
LOC: HO.HPS 15:57
PROVIDERS: PCP Internal Medicine; Visit Provider Internal Medicine
DX: J44.9 Chronic obstructive pulmonary disease, unspecified (principal); G47.33 Obstructive sleep apnea (adult) (pediatric); Z99.89 Dependence on other enabling machines and devices; J45.909 Unspecified asthma, uncomplicated
CPT/HCPCS: 99213

== ENCOUNTER → 2024-12-13 15:15 | Outpatient (BNVA) | payer MEDICARE, SELFPAY | PROVIDERS: PCP Internal Medicine; Visit Provider Internal Medicine | DX: J44.9 Chronic obstructive pulmonary disease, unspecified (principal); J45.909 Unspecified asthma, uncomplicated; G47.33 Obstructive sleep apnea (adult) (pediatric); Z99.89 Dependence on other enabling machines and devices | CPT/HCPCS: 99212 ==

== ENCOUNTER 2024-12-18 14:00 | Outpatient (AMB) | payer MEDICARE, SELFPAY ==
--- NOTE | 2024-12-18 14:21 | MHC.OFFVISPS ---
Intake Intake Visit Reasons: f/u consultation Infection Control Practitioner Required: No Allergies hydrocortisone [HYDROCORTISONE] Allergy (Severe, Verified 12/13/24 15:46) SWELLING NSAIDS (Non-Steroidal Anti-Inflamma [NSAIDS (NON-STEROIDAL ANTI-INFLAMMA] Allergy (Severe, Verified 12/13/24 15:46) BLEEDING aspirin Allergy (Unknown, Verified 12/13/24 15:46) bleeding doxycycline Adverse Reaction (Severe, Verified 12/13/24 15:46) in-effective Medication List - Last Reconciled 12/18/24 by Gayathri Castro APRN albuterol sulfate 90 mcg/actuation 2 puffs inhalation Q4H PRN albuterol sulfate 2.5 mg (3 mL) inhalation Q4H PRN brimonidine 0.2% 1 drp ophthalmic-Left BID budesonide 0.5 mg (2 mL) inhalation DAILY clonazepam 0.5 mg PO BID PRN insulin glargine (Lantus Solostar U-100 Insulin) 30 units subcut BEDTIME insulin lispro (Humalog KwikPen (U-100) Insulin) 20 units subcut TIDAC PRN insulin syringe,safety needle As directed ipratropium-albuterol 0.5 mg-3 mg(2.5 mg base)/3 mL 3 mL inhalation Q4-6H PRN 30 days latanoprost 0.005% 1 drp ophthalmic-Left BEDTIME metoprolol succinate ER 50 mg PO DAILY pantoprazole 20 mg PO DAILY@0630 pen needle, diabetic (Comfort EZ Pen [place]) Use 3 times daily with insulin timolol maleate 0.5% 1 drp ophthalmic-Left BID venlafaxine ER 150 mg PO BID zolpidem 5 mg PO BEDTIME HPI- Psychiatric Chief Complaint: f/u consultation HPI Narrative: pt reports he has fallen many times recently; seen in Ed - notes reviewed; he denies dizziness or warning to fall; says he is just standing there and then finds himself on the ground; he says mood anxious and depressed; pt states conflcit with every day; his adult son lives with the family and helps sometimes but works and is not always there. Discussed reducing medication doses due to falls. He is in agreement. Pt states he is not sleeping much at night. Past Psychiatric History: outp tx for years with venlafaxine and clonazepam Subjective Subjective Subjective Medication Compliance: Yes Side effects from medications: Yes (possibly contributing to falls ) Review of Systems Medical Review of Systems: changed (increase in falls) Mental Status Exam Mental Status Exam Patient Appearance: Disheveled and Appropriate Patient Orientation: Person, Place, Time and Situation Level of Consciousness: Awake Patient Behavior: Appropriate and Cooperative Mood Description: Withdrawn and Sad Affect Description: Withdrawn and Sad Patient Cognition Impaired: No Ability to Follow Directions: Good Speech Pattern: Appropriate, Soft-Spoken and Mumbled Memory Description: Intact Hallucinations: None Delusions: Not Present Thought Process: Intact, Distracted and Goal Oriented Thought Content: positive for Intact and positive for Goal Oriented Judgement: Fair Assessment and Plan Assessment & Plan (1) ESTELLA (generalized anxiety disorder): Status: Acute Code(s): F41.1 - Generalized anxiety disorder (2) Major depressive disorder, recurrent severe without psychotic features: Status: Acute Code(s): F33.2 - Major depressive disorder, recurrent severe without psychotic features Plan reduce effexor 150mg BID to 75mg in am and 150 mg at bedtime reduce clonazepam 0.5mg BID to 0.25mg BID continue ambien 5 mg and add melatonin 3 mg at bedtime Medications: New venlafaxine ER (Effexor XR) 75 mg PO QAM 30 caps 2RF clonazepam 0.25 mg PO BID 60 tabs 2RF venlafaxine ER (Effexor XR) 150 mg PO BEDTIME 30 caps 1RF melatonin 3 mg PO BEDTIME PRN 30 caps 1RF sleep Discontinued clonazepam Discontinued Reason: Doctor's Order 0.5 mg PO BID PRN 60 tabs 0RF anxiety venlafaxine ER Discontinued Reason: Doctor's Order 150 mg PO BID 60 caps 2RF Counseling and coordination of Care Pt. Self Management counseling: Maintenance-social rhythm, Mod caffeine/ETOH intake, Nutrition education and improvement, Sleep hygiene, Behavior activation, General coping skills and Problem solving Medication management counseling: Effectiveness, Side effects, Dosing range, Duration, Drug interaction and Adherence Diagnosis and Prognosis Counseling: Accuracy of diagnosis, Prognosis over time, Impact of diagnosis on life functions and Adequacy of current interventions Details: I spent 35 minutes reviewing the record, seeing the patient and documenting in the medical record. Counseling provided to the patient/caregiver as outlined below. Addressed patient/caregiver concerns regarding current medication regime including effective adherence. Addressed patient/caregiver concerns regarding diagnosis and prognosis including accuracy of diagnosis, prognosis over time, impact of diagnosis. Addressed patient/caregiver concerns regarding impact of recent stressors. [facility] Medical History SIMON (dyspnea on exertion) Shortness of breath Pedal edema Chest pain in adult Class 2 severe obesity with body mass index (BMI) of 35 to 39.9 with serious comorbidity Bilateral primary osteoarthritis of knee Osteoarthritis of right knee Diabetes mellitus type 2, uncontrolled COPD exacerbation Arthritis of both knees Chronic pain syndrome Allergic rhinitis VIDA on CPAP COPD (chronic obstructive pulmonary disease) Lumbar radiculopathy Allergic rhinitis Asthma Benign prostatic hyperplasia Back pain Sleep apnea HTN (hypertension) Lumbar spondylosis Tendon tear Depression Arthritis Asthma Crohn disease Surgical History H/O colonoscopy Family History Father No problems noted. Mother No problems noted. Social History Household Members: Family Housing: House Do you presently have visiting nurse or other home services: No Alcohol intake: never Comment: pain 3-4 left knee and buttock Patient Tobacco Use Status: Former Tobacco user e-Cigarette/Vaping Use: Never Used Second Hand Smoke Exposure: Yes Advance Directives Date on File: 07/07/24 service: No Current occupational status: retired Cognitive needs: Yes (cane) Hearing needs: No Vision needs: Yes (Glasses) Social History: lives with ; has 3 adult children ; retired from [employer] Substance History: denies Trauma History: difficult childhood- mother when he was age 8. raised by brother and sister Coding Level of Care Code Est Pt Level 4 (60582) Diagnoses ESTELLA (generalized anxiety disorder) F41.1 Major depressive disorder, recurrent severe without psychotic features F33.2
== END 2024-12-18 14:35 | disposition home or self-care (01) ==
LOC: HO.HOP 14:00
PROVIDERS: PCP Internal Medicine; Visit Provider Clinical Nurse Specialist Psychiatric/Mental Health
DX: F41.1 Generalized anxiety disorder (principal); F33.2 Major depressive disorder, recurrent severe without psychotic features
CPT/HCPCS: 99214

== ENCOUNTER → 2024-12-18 14:00 | Outpatient (BNVA) | payer MEDICARE, SELFPAY | PROVIDERS: PCP Internal Medicine; Visit Provider Clinical Nurse Specialist Psychiatric/Mental Health | DX: F41.1 Generalized anxiety disorder (principal); F33.2 Major depressive disorder, recurrent severe without psychotic features; Z71.89 Other specified counseling | CPT/HCPCS: 99212 ==

== ENCOUNTER 2025-02-14 14:23 | Outpatient (AMB) | payer MEDICARE, SELFPAY ==
[2025-02-14 14:30] VITALS: BP 142/78; PULSE 66; O2SAT 92; BMI 34.5
--- NOTE | 2025-02-14 14:30 | A.OFFVIS_ITS ---
Vital Signs 02/14/25 14:30 Height 5 ft 8 in Weight 227 lb 1.218 oz BMI 34.5 BP 142/78 H Blood Pressure Location Rt brachial Position Sitting Pulse 66 Pulse Source Doppler Pulse Oximetry (%) 92 Oxygen Delivery Method Room Air Intake Visit Reasons: COPD Intake Note: Patient is here to follow up on COPD, no new symptoms Allergies hydrocortisone [HYDROCORTISONE] Allergy (Severe, Verified 02/14/25 14:54) SWELLING NSAIDS (Non-Steroidal Anti-Inflamma [NSAIDS (NON-STEROIDAL ANTI-INFLAMMA] Allergy (Severe, Verified 02/14/25 14:54) BLEEDING aspirin Allergy (Unknown, Verified 02/14/25 14:54) bleeding doxycycline Adverse Reaction (Severe, Verified 02/14/25 14:54) in-effective Medication List - Last Reconciled 02/14/25 by Pepe Rojas MD albuterol sulfate 90 mcg/actuation 2 puffs inhalation Q4H PRN albuterol sulfate 2.5 mg (3 mL) inhalation Q4H PRN brimonidine 0.2% 1 drp ophthalmic-Left BID budesonide 0.5 mg (2 mL) inhalation DAILY clonazepam 0.25 mg (1/2 x 0.5 mg) PO BID insulin glargine (Lantus Solostar U-100 Insulin) 30 units subcut BEDTIME insulin lispro (Humalog KwikPen (U-100) Insulin) 20 units subcut TIDAC PRN insulin syringe,safety needle As directed ipratropium-albuterol 0.5 mg-3 mg(2.5 mg base)/3 mL 3 mL inhalation Q4-6H PRN 30 days latanoprost 0.005% 1 drp ophthalmic-Left BEDTIME melatonin 3 mg PO BEDTIME PRN metoprolol succinate ER 50 mg PO DAILY pantoprazole 20 mg PO DAILY@0630 pen needle, diabetic (Comfort EZ Pen [place]) Use 3 times daily with insulin timolol maleate 0.5% 1 drp ophthalmic-Left BID venlafaxine ER (Effexor XR) 75 mg PO QAM venlafaxine ER (Effexor XR) 150 mg PO BEDTIME zolpidem 5 mg PO BEDTIME Do you need a note to return to daycare/school/sports/work: No HPI HPI COPD: Details: This 74 years old gentleman with longstanding history of asthma/COPD. On his last visit he was started on ipratropium-albuterol solution in the nebulizer to use Q 6 hours while awake ( at least 3 times a day) Along with that budesonide 0.5 mg twice a day was added, to compensate him for the Symbicort which he could not get. With this combination his breathing has definitely improved. He has mild cough off and on, but nonproductive. He has not needed oxygen. He walks around slowly because of his chronic back pain and arthritis. He is full of multiple complaints but not much related to the lungs. 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 He does have chronic depression and anxiety which seems to be under control. Has diabetes mellitus which is controlled but he has a component of peripheral neuritis. [facility] Medical History SIMON (dyspnea on exertion) Shortness of breath Pedal edema Chest pain in adult Class 2 severe obesity with body mass index (BMI) of 35 to 39.9 with serious comorbidity Bilateral primary osteoarthritis of knee Osteoarthritis of right knee Diabetes mellitus type 2, uncontrolled COPD exacerbation Arthritis of both knees Chronic pain syndrome Allergic rhinitis VIDA on CPAP COPD (chronic obstructive pulmonary disease) Lumbar radiculopathy Allergic rhinitis Asthma Benign prostatic hyperplasia Back pain Sleep apnea HTN (hypertension) Lumbar spondylosis Tendon tear Depression Arthritis Asthma Crohn disease Surgical History H/O colonoscopy Family History Father No problems noted. Mother No problems noted. Social History Household Members: Family Housing: House Do you presently have visiting nurse or other home services: No Alcohol intake: never Comment: pain 3-4 left knee and buttock Patient Tobacco Use Status: Former Tobacco user e-Cigarette/Vaping Use: Never Used Second Hand Smoke Exposure: Yes Advance Directives Date on File: 07/07/24 service: No Current occupational status: retired Cognitive needs: Yes (cane) Hearing needs: No Vision needs: Yes (Glasses) Review of Systems Const All systems reviewed & are unremarkable except as noted in HPI and below Eyes Reports no additional complaints ENT Reports nasal congestion and Reports nasal discharge (Postnasal discharge off and on) Card Denies chest pain, Denies irregular heart rhythm and Denies dyspnea on exertion Resp Reports as per HPI, Denies dyspnea on exertion and Reports other (Complains of lot of pain over the left mid chest due to fall yesterday) GI Reports heartburn (Symptoms of GERD or controlled) Reports no additional complaints Musc Reports back pain, Reports myalgias and Reports arthralgias Skin/Breast Reports system reviewed and no additional complaints, except as documented Neuro Reports no additional complaints Psych Reports no additional complaints Physical Exam Vital Signs: Last Vital Signs Pulse 66 02/14/25 14:30 BP 142/78 H 02/14/25 14:30 Pulse Ox 92 02/14/25 14:30 Oxygen Delivery Method Room Air 02/14/25 14:30 BMI result Body Mass Index 34.5 Const Other: HE LOOKS OVERWEIGHT, TIRED AND SOMEWHAT DEPRESSED. General: comfortable, no acute distress, alert and awake Orientation/consciousness: patient oriented x3 HEENT Head: Yes normal to inspection General nose exam: No nasal polyps present and No nasal discharge present Face and sinus: Yes sinuses nontender Mouth: oropharynx normal Throat: Yes posterior oropharynx normal Eyes General: appearance normal, both eyes and all related structures Neck Neck: Yes normal visual inspection, Yes no lymphadenopathy, Yes trachea midline and Yes no JVD Thyroid: Thyroid normal Chest Chest palpation & inspection: normal inspection of the chest, normal palpation of entire chest wall and no tenderness Resp Other: PERCUSSION NOTE RESONANT, BREATH SOUNDS ARE VERY DISTANT, WITH PROLONGED EXPIRATORY PHASE. NO WHEEZES OR CREPITATIONS ARE HEARD TODAY. Cardio Palpation: normal PMI Rate: regular rate Rhythm: regular rhythm Heart sounds: no gallops and no murmurs GI Palpation (GI): Soft to palpation, nontender, No hepatosplenomegaly present, no masses and Other GI palpation findings present (ABDOMEN IS MODERATELY PROTUBERANT) Auscultation: normal bowel sounds Back/Spine/Pelvis Thoracic/Lumbar Spine: thoracic and lumbar spine normal to inspection, thoraco- lumbar ROM limited and thoraco-lumbar spasm Skin General skin exam: no rashes or lesions noted Neuro General: patient oriented x3 and no focal motor deficits Cranial nerves: Yes CN's II-XII intact bilaterally Extrem General: Yes normal to inspection, No no joint enlargement (BOTH KNEES ARE SLIGHTLY ENLARGED AND PAINFUL), Yes no clubbing, cyanosis or edema, Yes no calf tenderness and Yes normal gait (NEEDS A CANE) Psych Appearance: grossly normal Speech and movement: Normal speech and movement present Assessment & Plan Assessment & Plan (1) COPD (chronic obstructive pulmonary disease): Comment: THIS GENTLEMAN HAS CHRONIC, MODERATELY SEVERE, ASTHMA/COPD OVERLAP SYNDROME. HE IS STABLE AT THIS TIME BUT HE GETS SHORT OF BREATH MORE EASILY. He is doing well with the meds being used via nebulizer. Code(s): J44.9 - Chronic obstructive pulmonary disease, unspecified Category: Medical Plan: CONTINUE IPRATROPIUM-ALBUTEROL SOLUTION IN THE NEBULIZER Q 6 HOURS WHILE AWAKE ( 3 TIMES A DAY AND 4TH TIME IF NEEDED) ADD BUDESONIDE 0.5 MG SOLUTION IN THE NEBULIZER AND USE B.I.D.. IN ADDITION HE CAN USE ALBUTEROL HFA 2 PUFFS Q.6 HOURS PRN OR JUST PLAIN ALBUTEROL SOLUTION IN THE NEBULIZER Q 4-6 HOURS P.R.N. FOR ANY ACUTE SYMPTOMS. (2) VIDA on CPAP: Comment: THIS GENTLEMAN HAS OBSTRUCTIVE SLEEP APNEA FOR MANY YEARS, HAS BEEN USING HIS CPAP VERY. REGULARLY AT NIGHT HE IS VERY HAPPY WITH HIS NEW CPAP MACHINE AND HAS NO ISSUES WITH THE MASK. Code(s): G47.33 - Obstructive sleep apnea (adult) (pediatric); Z99.89 - Dependence on other enabling machines and devices Category: Medical Plan: KEEP ON USING THE CPAP REGULARLY Coding Level of Care Code Est Pt Level 3 (61377) Diagnoses COPD (chronic obstructive pulmonary disease) J44.9 VIDA on CPAP G47.33; Z99.89
== END 2025-02-14 14:55 | disposition home or self-care (01) ==
LOC: HO.HPS 14:23
PROVIDERS: PCP Internal Medicine; Visit Provider Internal Medicine
DX: J44.9 Chronic obstructive pulmonary disease, unspecified (principal); G47.33 Obstructive sleep apnea (adult) (pediatric); Z99.89 Dependence on other enabling machines and devices
CPT/HCPCS: 99213

== ENCOUNTER → 2025-02-14 14:23 | Outpatient (BNVA) | payer MEDICARE, SELFPAY | PROVIDERS: PCP Internal Medicine; Visit Provider Internal Medicine | DX: J44.9 Chronic obstructive pulmonary disease, unspecified (principal); G47.33 Obstructive sleep apnea (adult) (pediatric); Z99.89 Dependence on other enabling machines and devices | CPT/HCPCS: 99212 ==

== ENCOUNTER 2025-02-19 12:56 | Outpatient (AMB) | payer MEDICARE, SELFPAY ==
--- NOTE | 2025-02-19 13:14 | MHC.OFFVISPS ---
Intake Intake Visit Reasons: f/u consultation Health Information Coder Required: No Allergies hydrocortisone [HYDROCORTISONE] Allergy (Severe, Verified 02/14/25 14:54) SWELLING NSAIDS (Non-Steroidal Anti-Inflamma [NSAIDS (NON-STEROIDAL ANTI-INFLAMMA] Allergy (Severe, Verified 02/14/25 14:54) BLEEDING aspirin Allergy (Unknown, Verified 02/14/25 14:54) bleeding doxycycline Adverse Reaction (Severe, Verified 02/14/25 14:54) in-effective Medication List - Last Reconciled 02/19/25 by Gayathri Castro APRN albuterol sulfate 90 mcg/actuation 2 puffs inhalation Q4H PRN albuterol sulfate 2.5 mg (3 mL) inhalation Q4H PRN brimonidine 0.2% 1 drp ophthalmic-Left BID budesonide 0.5 mg (2 mL) inhalation DAILY clonazepam 0.25 mg (1/2 x 0.5 mg) PO BID insulin glargine (Lantus Solostar U-100 Insulin) 30 units subcut BEDTIME insulin lispro (Humalog KwikPen (U-100) Insulin) 20 units subcut TIDAC PRN insulin syringe,safety needle As directed ipratropium-albuterol 0.5 mg-3 mg(2.5 mg base)/3 mL 3 mL inhalation Q4-6H PRN 30 days latanoprost 0.005% 1 drp ophthalmic-Left BEDTIME melatonin 3 mg PO BEDTIME PRN metoprolol succinate ER 50 mg PO DAILY pantoprazole 20 mg PO DAILY@0630 pen needle, diabetic (Comfort EZ Pen [place]) Use 3 times daily with insulin timolol maleate 0.5% 1 drp ophthalmic-Left BID venlafaxine ER (Effexor XR) 75 mg PO QAM venlafaxine ER (Effexor XR) 150 mg PO BEDTIME zolpidem 5 mg PO BEDTIME HPI- Psychiatric Chief Complaint: f/u consultation HPI Narrative: pt reports mood stable overall although he has hip pain that effects his mood and sleep; he has not fallen since last visit in Dec 2024. His PHQ9 is 14 down from 18 and GAD7 is 10 down from 14. Pt reports still not sleeping well and wants to go back up on clonazepam to 0.5mg at night. He is staying hydrated; he has low appetite. He has some help at home from adult son. He reports passive SI but no plan and no intent. Past Psychiatric History: outp tx for years with venlafaxine and clonazepam Subjective Subjective Subjective Medication Compliance: Yes Side effects from medications: No Review of Systems Medical Review of Systems: unchanged Mental Status Exam Mental Status Exam Patient Appearance: Well Grooomed and Appropriate Patient Orientation: Person, Place, Time and Situation Level of Consciousness: Awake and Appropriate Patient Behavior: Appropriate and Cooperative Mood Description: Anxious and Sad Affect Description: Depressed (improved but still low mood) Patient Cognition Impaired: No Ability to Follow Directions: Good Speech Pattern: Clear and Appropriate Memory Description: Intact Hallucinations: None Delusions: Not Present Thought Process: Intact and Goal Oriented Thought Content: positive for Intact and positive for Goal Oriented Judgement: Fair Assessment and Plan Assessment & Plan (1) ESTELLA (generalized anxiety disorder): Status: Acute Code(s): F41.1 - Generalized anxiety disorder (2) Major depressive disorder, recurrent severe without psychotic features: Status: Acute Code(s): F33.2 - Major depressive disorder, recurrent severe without psychotic features Plan continue venlafaxine 75mg in am and 150 mg at bedtime continue ambien 5mg at bedtime continue melatonin 3 mg at bedtime resume clonazeapm 0.25mg in am and 0.5mg at bedtime follow up with PCP Medications: Changed From clonazepam 0.25 mg (1/2 x 0.5 mg) PO BID 30 tabs 1RF To clonazepam take 1/2 tab every am and 1 tab daily at bedtime orally; 45 tabs 2RF Refilled melatonin 3 mg PO BEDTIME PRN 30 caps 2RF sleep venlafaxine ER (Effexor XR) 75 mg PO QAM 30 caps 2RF venlafaxine ER (Effexor XR) 150 mg PO BEDTIME 30 caps 1RF Counseling and coordination of Care Pt. Self Management counseling: Maintenance-social rhythm, Mod caffeine/ETOH intake and Nutrition education and improvement Medication management counseling: Effectiveness, Side effects, Dosing range, Duration and Drug interaction Diagnosis and Prognosis Counseling: Accuracy of diagnosis, Prognosis over time, Impact of diagnosis on life functions and Adequacy of current interventions Details: I spent 40 minutes reviewing the record, seeing the patient and documenting in the medical record. Counseling provided to the patient/caregiver as outlined below. Addressed patient/caregiver concerns regarding current medication regime including effective adherence. Addressed patient/caregiver concerns regarding diagnosis and prognosis including accuracy of diagnosis, prognosis over time, impact of diagnosis. Addressed patient/caregiver concerns regarding impact of recent stressors. [facility] Medical History SIMON (dyspnea on exertion) Shortness of breath Pedal edema Chest pain in adult Class 2 severe obesity with body mass index (BMI) of 35 to 39.9 with serious comorbidity Bilateral primary osteoarthritis of knee Osteoarthritis of right knee Diabetes mellitus type 2, uncontrolled COPD exacerbation Arthritis of both knees Chronic pain syndrome Allergic rhinitis VIDA on CPAP COPD (chronic obstructive pulmonary disease) Lumbar radiculopathy Allergic rhinitis Asthma Benign prostatic hyperplasia Back pain Sleep apnea HTN (hypertension) Lumbar spondylosis Tendon tear Depression Arthritis Asthma Crohn disease Surgical History H/O colonoscopy Family History Father No problems noted. Mother No problems noted. Social History Household Members: Family Housing: House Do you presently have visiting nurse or other home services: No Alcohol intake: never Comment: pain 3-4 left knee and buttock Patient Tobacco Use Status: Former Tobacco user e-Cigarette/Vaping Use: Never Used Second Hand Smoke Exposure: Yes Advance Directives Date on File: 07/07/24 service: No Current occupational status: retired Cognitive needs: Yes (cane) Hearing needs: No Vision needs: Yes (Glasses) Social History: lives with ; has 3 adult children ; retired from [employer] Substance History: denies Trauma History: difficult childhood- mother when he was age 8. raised by brother and sister Coding Level of Care Code Est Pt Level 4 (24026) Diagnoses ESTELLA (generalized anxiety disorder) F41.1 Major depressive disorder, recurrent severe without psychotic features F33.2
== END 2025-02-19 14:05 | disposition home or self-care (01) ==
LOC: HO.HOP 12:56
PROVIDERS: PCP Internal Medicine; Visit Provider Clinical Nurse Specialist Psychiatric/Mental Health
DX: F41.1 Generalized anxiety disorder (principal); F33.2 Major depressive disorder, recurrent severe without psychotic features
CPT/HCPCS: 99214

== ENCOUNTER → 2025-02-19 12:56 | Outpatient (BNVA) | payer MEDICARE, SELFPAY | PROVIDERS: PCP Internal Medicine; Visit Provider Clinical Nurse Specialist Psychiatric/Mental Health | DX: F41.1 Generalized anxiety disorder (principal); F33.2 Major depressive disorder, recurrent severe without psychotic features; Z71.89 Other specified counseling | CPT/HCPCS: 99212 ==

== ENCOUNTER 2025-04-11 02:01 | Inpatient (IN) | payer MEDICARE, SELFPAY ==
[2025-04-11] VITALS (14 sets, daily range): BP systolic 148–190; BP diastolic 67–100; PULSE 62–85; RESP 11–18; TEMP 36.6–37; O2SAT 87–96; BMI 33.2
--- NOTE | 2025-04-11 | ECG_ITS ---
Test Reason : htn Blood Pressure : */* mmHG Vent. Rate : 77 BPM Atrial Rate : 77 BPM P-R Int : 154 ms QRS Dur : 96 ms QT Int : 386 ms P-R-T Axes : 29 11 21 degrees QTcB Int : 436 ms Normal sinus rhythm Cannot rule out Anterior infarct , age undetermined Abnormal ECG When compared with ECG of 09-Nov-2024 15:23, No significant change was found Referred By: Idalmis Hernandez Electronically Signed By: CHARLOTTE GORDON MD
--- NOTE | ~2025-04-11 | CT_ITS ---
CLINICAL HISTORY: SBO history of Crohns disease Exam: CT abdomen and pelvis without intravenous contrast. Comparison: None. Findings: Study limited by lack of intravenous contrast. Specifically, evaluation of the vascular tree, solid abdominal organs, and gastrointestinal tract be limited without IV contrast administration. This is especially true given the clinical history provided of Crohn's disease. No comment can be made regarding the enhancement schema of the bowel on this exam. CT abdomen: Areas of likely atelectasis within the dependent portion of the lower lobes. No pleural effusion or pneumothorax. [id number] multilevel degenerative disc disease and degenerative facet disease throughout the thoracolumbar spine without acute bony abnormality. Dense vascular calcification of the thoracic aorta including at the aortic root. Coronary artery calcifications are also evident. No calcified gallstones. Gallbladder is moderately distended without gallbladder wall thickening or pericholecystic fluid. Unenhanced liver, spleen, pancreas, and adrenal glands are unremarkable for acute findings. Several cysts within the left kidney measure up to 3.9 cm in size. No stone or hydronephrosis of either kidney. Moderate fluid distention of the proximal to mid gastric body. There is abrupt caliber change of the stomach of the mid gastric body with decompressed distal gastric body and gastric antrum. No discrete mass lesion seen at this focal caliber change. Duodenum is of normal caliber. Proximal jejunum is of normal caliber. More distally, there are dilated loops of jejunum and ileum with numerous air-fluid levels. The small bowel loops are dilated to 4.8 cm. Area of hyperdensity within a single small bowel loop within the right midabdomen measuring 11 mm in round diameter. CT pelvis: Moderate stool throughout the colon. No colonic wall thickening or pericolonic inflammatory stranding. Distal small bowel is decompressed. Transition from dilated to decompressed small bowel occurs within the right abdomen. There is prominent induration within the mesenteric fat within the abdomen and pelvis, especially near the site of transition. Small amount of free fluid. No free air. No portal venous gas is seen Dense vascular calcification of the abdominal aorta and iliac arteries. Fat containing bilateral inguinal hernias Impression: 1. Small-bowel obstruction with transition from dilated to decompressed small bowel seen within the right midabdomen. Surgical consultation suggested 2. No findings of perforation. 3. Focal rounded hyperdensity within the dilated small bowel loop is nonspecific. However, the possibility of intraluminal blood products is not excluded. Correlation with any abnormal gastrointestinal bleeding suggested. This document has been electronically signed by: Ramirez Michaels MD on 04/11/2025 04:54:29
--- NOTE | ~2025-04-11 | XR_ITS ---
CLINICAL HISTORY: verify ngt placement 1 view chest x-ray Comparison: CT/SR - CT ABDOMEN PELVIS WO IV CON - 04/11/25 03:32 EDT CR - XR CHEST 2V - 10/26/24 18:48 EST Findings: Enteric sump tube has been placed with tip projected over the mid gastric body. Mild hypoinflation. Cardiac silhouette is at the upper limits of normal for size. Mild atelectasis within the cardiophrenic angles bilaterally. No pneumothorax or pleural effusion. IMPRESSION: Enteric sump tube as above. This document has been electronically signed by: Ramirez Michaels MD on 04/11/2025 05:39:49
[2025-04-11 02:27] LABS: MANUAL DIFF FLAG NO
--- NOTE | 2025-04-11 02:34 | ED.ABDPAIN ---
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 Related Data Home Medications ?Medication ?Instructions ?Recorded ?Confirmed latanoprost 0.005 % eye drops 1 drp ophthalmic-Left BEDTIME 11/17/21 02/19/25 brimonidine 0.2 % eye drops 1 drp ophthalmic-Left BID 05/18/23 02/19/25 albuterol sulfate 90 mcg/actuation 2 puff inhalation Q4H PRN for 06/19/24 02/19/25 aerosol inhaler wheezing insulin glargine 100 unit/mL (3 30 unit subcut BEDTIME 06/19/24 02/19/25 mL) subcutaneous pen (Lantus Solostar U-100 Insulin) timolol maleate 0.5 % eye drops 1 drp ophthalmic-Left BID 06/24/24 02/19/25 Previous Rx's ?Medication ?Instructions ?Recorded insulin syringe,safety needle 0.3 #100 ea 09/28/21 mL 29 gauge x 1/2 pen needle, diabetic 32 gauge x #100 ea 04/09/22 5/16 (Comfort EZ Pen [place]) albuterol sulfate 2.5 mg/3 mL 2.5 mg (3 mL) inhalation Q4H PRN 10/29/24 (0.083 %) solution for nebulization shortness of breath or wheezing #90 mL budesonide 0.5 mg/2 mL suspension 0.5 mg (2 mL) inhalation DAILY 12/13/24 for nebulization ASTHMA/COPD #120 mL ipratropium 0.5 mg-albuterol 3 mg 3 ml inhalation Q4-6H PRN COPD 30 12/13/24 (2.5 mg base)/3 mL nebulization days #360 mL soln metoprolol succinate 50 mg 50 mg PO DAILY #90 tabs 01/22/25 tablet,extended release 24 hr pantoprazole 20 mg tablet,delayed 20 mg PO DAILY@0630 #90 tabs 01/22/25 release melatonin 3 mg capsule 3 mg PO BEDTIME PRN sleep #30 caps 02/19/25 venlafaxine 150 mg 150 mg PO BEDTIME #30 caps 02/19/25 capsule,extended release 24 hr (Effexor XR) venlafaxine 75 mg capsule,extended 75 mg PO QAM #30 caps 02/19/25 release 24 hr (Effexor XR) insulin lispro 100 unit/mL 20 unit (0.2 mL) subcut TIDAC PRN 02/25/25 subcutaneous pen (Humalog KwikPen Blood Sugar Levels #15 mL (U-100) Insulin) clonazepam 0.5 mg tablet See Rx Instructions PO .COMPLEX 03/05/25 #45 tabs zolpidem 5 mg tablet 5 mg PO BEDTIME #30 tabs 03/05/25 prednisone 20 mg tablet 20 mg PO BID copd excerbation 5 03/19/25 days #10 tabs Allergies Allergy/AdvReac Type Severity Reaction Status Date / Time hydrocortisone Allergy Severe SWELLING Verified 04/11/25 02:27 [HYDROCORTISONE] NSAIDS (Non-Steroidal Allergy Severe BLEEDING Verified 04/11/25 02:27 Anti-Inflamma [NSAIDS (NON-STEROIDAL ANTI-INFLAMMA] aspirin Allergy Unknown bleeding Verified 04/11/25 02:27 doxycycline AdvReac Severe in-effectiv Verified 04/11/25 02:27 e Review of Systems Review of Systems Yes all other systems are reviewed and are negative [facility] Past Medical History Medical History SIMON (dyspnea on exertion) Shortness of breath Pedal edema Chest pain in adult Class 2 severe obesity with body mass index (BMI) of 35 to 39.9 with serious comorbidity Bilateral primary osteoarthritis of knee Osteoarthritis of right knee Diabetes mellitus type 2, uncontrolled COPD exacerbation Arthritis of both knees Chronic pain syndrome Allergic rhinitis VIDA on CPAP COPD (chronic obstructive pulmonary disease) Lumbar radiculopathy Allergic rhinitis Asthma Benign prostatic hyperplasia Back pain Sleep apnea HTN (hypertension) Lumbar spondylosis Tendon tear Depression Arthritis Asthma Crohn disease Surgical History H/O colonoscopy Family History Family History Father No problems noted. Mother No problems noted. Social History Social History Household Members: Family Housing: House Do you presently have visiting nurse or other home services: No Alcohol intake: never Comment: pain 3-4 left knee and buttock Patient Tobacco Use Status: Former Tobacco user e-Cigarette/Vaping Use: Never Used Second Hand Smoke Exposure: Yes Advance Directives: No Advance Directives Information Provided: No Advance Directives Date on File: 07/07/24 Do you have a plan to hurt others: No Plan service: No Current occupational status: retired Cognitive needs: Yes (cane) Hearing needs: No Vision needs: Yes (Glasses) Physical Exam ED Vital Signs: Vital Signs - 24 hr 04/11/25 02:26 04/11/25 03:15 04/11/25 03:55 Temperature 98.3 F Pulse Rate 78 Respiratory Rate 18 18 18 Blood Pressure 190/75 H Pulse Oximetry 94 Oxygen Delivery Method Room Air 04/11/25 04:23 04/11/25 04:25 Temperature 98.6 F Pulse Rate 78 Respiratory Rate 16 18 Blood Pressure 177/67 H Pulse Oximetry 87 L Oxygen Delivery Method Room Air BMI result Body Mass Index 33.2 Appearance: Alert. Oriented X3. In moderate distress Eyes: PERRLA, No Nystagmus ENT: Pharynx normal. Oral Mucosa moist Neck: Normal inspection. Neck supple. CVS: Normal heart rate and rhythm. Pulses normal. Respiratory: No respiratory distress. Equal air entry bilateral, no wheezing/rales/rhonchi Abdomen: Soft and distended diffusely tender , with guarding no rebound tenderness Bowel sounds are sluggish, no mass palpable, no CVA tenderness Skin: Skin warm and dry. Normal skin color. Normal skin turgor. Extremities: No lower extremity edema. No calf tenderness Neuro: Oriented X 3. No motor deficit. No sensory deficit.No cerebellar signs , cranial nerves II-XII intact Medical Decision Making Medical Decision Making [facility] Narrative: Patient with Crohn disease comes here for abdominal pain abdominal distention and vomiting CT scan showed small bowel obstruction patient has had similar episodes in the past never had to go for surgery case discussed with surgery Dr. Alexander PA advised to admit to medical service NG-tube follow up during stay in the hospital NG-tube was placed and about 600 cc of gastric contents was drained patient feels slightly better Differential Diagnosis Differential Diagnoses: The differential diagnosis associated with the presentation includes Small bowel obstruction/gastritis/Crohn disease flare-up Lab Data [facility] Lab Attestation statement: I reviewed the patient's lab results. 04/11/25 02:22 04/11/25 02:22 Labs: Lab Results 04/11/25 04/11/25 Range/Units 02:22 05:09 WBC 12.4 H (4.8-10.8) X10*3/uL RBC 5.35 (4.60-5.80) X10*6/uL Hgb 15.0 (14.0-18.0) g/dl Hct 45.0 (42.0-52.0) % MCV 84.1 (80.0-98.0) fL MCH 28.0 (27.0-33.0) pg MCHC 33.3 (31.0-36.0) g/dl RDW 13.8 (11.0-16.0) % Plt Count 272 (160-400) X10*3/uL MPV 11.2 (9.4-12.4) fL Immature Gran % (Auto) 0.5 H (0.0-0.4) % Neut % (Auto) 81.1 H (45-73) % Lymph % (Auto) 10.2 L (20-40) % [place] % (Auto) 5.0 (2-11) % Eos % (Auto) 2.7 (0-4) % Baso % (Auto) 0.5 (0-2) % Lymph # (Auto) 1.3 (1.2-4.9) X10*3/uL [place] # (Auto) 0.6 (0.1-1.2) X10*3/uL Eos # (Auto) 0.3 (0.0-0.4) X10*3/uL Baso # (Auto) 0.1 (0.0-0.2) X10*3/uL Abs Immat Gran (auto) 0.06 H (0.00-0.03) X10*3/uL Absolute Neuts (auto) 10.1 H (2.0-8.3) x10*3/uL Absolute Nucleated RBC 0.000 (0.0-0.012) X10*3/uL Nucleated RBC % (auto) 0.0 (0.0-0.2) /100WBC Sodium 145 (135-145) mmol/L Potassium 3.4 (3.3-5.1) mmol/L Chloride 103 (96-108) mmol/L Carbon Dioxide 31 H (22-29) mmol/L Anion Gap 14 (12-20) BUN 15 (9-16) mg/dL Creatinine 0.87 (0.5-1.4) mg/dL Estim Creat Clear Calc 87.6 Estimated GFR > 60 Random Glucose 119 H (60-115) mg/dL Lactic Acid 0.9 (0.5-2.0) mmol/L Calcium 9.1 (8.4-10.2) mg/dL Magnesium 1.7 (1.6-2.6) mg/dL Total Bilirubin 0.5 (0.0-1.0) mg/dL AST 25 (5-37) U/L ALT 18 (0-40) U/L Alkaline Phosphatase 137 H (39-117) U/L C-Reactive Protein 0.64 H (< or = 0.50) mg/dL Total Protein 6.4 L (6.5-8.0) g/dL Albumin 4.0 (3.5-5.0) g/dL Independent Interpretation I performed an independent interpretation of an: EKG Interpretation: Normal sinus rhythm heart rate 77 beats per minute poor progression of R-wave no acute ST-T changes no acute ischemia Radiology Impression Discussion of test interpretation with radiology: I have reviewed the radiologist's reading. Radiologist Impression: <del>1</del>. Small-bowel obstruction with transition from dilated to decompressed small bowel seen within the right midabdomen. Surgical consultation suggested 2. No findings of perforation. 3. Focal rounded hyperdensity within the dilated small bowel loop is nonspecific. However, the possibility of intraluminal blood products is not excluded. Correlation with any abnormal gastrointestinal bleeding suggested. This document has been electronically signed by: Ramirez Michaels MD on 04/11/2025 04:54:29 Medications Administered Generic Name Dose Route Start Last Admin Trade Name Freq PRN Reason Stop Dose Admin Hydromorphone HCl 1 mg 04/11/25 05:25 04/11/25 06:12 Hydromorphone Hcl 1 Mg/Ml Syringe IVPUSH 1 mg Q3H PRN Administration Pain, Severe (Pain Scale 7-10) Protocol Sodium Chloride 1,000 mls @ 100 mls/hr 04/11/25 05:30 04/11/25 05:42 Ns IVCONT 100 mls/hr .Q10H [place] Administration Insulin Human Lispro 0 unit 04/11/25 05:30 04/11/25 06:11 Insulin Lispro 100 Unit/Ml 3 Ml Vial SUBCUT Not Given Q6H [place] Protocol Discontinued Medications Generic Name Dose Route Start Last Admin Trade Name Freq PRN Reason Stop Dose Admin Hydromorphone HCl 1 mg 04/11/25 03:46 04/11/25 03:55 Hydromorphone Hcl 1 Mg/Ml Syringe IVPUSH 04/11/25 03:47 1 mg ONCE ONE Administration Protocol Sodium Chloride 1,000 mls @ 999 mls/hr 04/11/25 02:41 04/11/25 03:26 Ns IV 04/11/25 03:41 999 mls/hr .Q1H1M ONE Administration Morphine Sulfate 4 mg 04/11/25 02:41 04/11/25 03:15 Morphine Sulfate 4 Mg/Ml Cartridge IVPUSH 04/11/25 02:42 4 mg ONCE ONE Administration Protocol Ondansetron HCl 4 mg 04/11/25 02:41 04/11/25 03:15 Ondansetron Hcl 4 Mg/2 Ml Vial IVPUSH 04/11/25 02:42 4 mg ONCE ONE Administration Discharge Plan Discharge Clinical Impression: Crohn's disease of small intestine with intestinal obstruction Patient Disposition: Admitted As Inpatient
[2025-04-11 02:44] LABS: Alanine Aminotransferase 18 U/L (0-40); Alkaline Phosphatase 137 U/L (39-117); Anion Gap 14 (12-20); Aspartate Amino Transferase 25 U/L (5-37); Bilirubin Total 0.5 mg/dL (0.0-1.0); Blood Urea Nitrogen 15 mg/dL (9-16); Calcium 9.1 mg/dL (8.4-10.2); Carbon Dioxide 31 mmol/L (22-29); Chloride 103 mmol/L (96-108); Creatinine Clr Calc Pharmacy 87.6; Estimated Glomerular Filt Rate > 60; Glucose Random 119 mg/dL (60-115); Magnesium 1.7 mg/dL (1.6-2.6); Potassium 3.4 mmol/L (3.3-5.1); Sodium 145 mmol/L (135-145); Total Protein 6.4 g/dL (6.5-8.0)
[2025-04-11 02:53] LABS: Basophils Absolute Auto 0.1 X10*3/uL (0.0-0.2); Basophils Percent Auto 0.5 % (0-2); C Reactive Protein 0.64 mg/dL (< or = 0.50); Eosinophils Absolute Auto 0.3 X10*3/uL (0.0-0.4); Eosinophils Percent Auto 2.7 % (0-4); Imm Gran Abs Auto 0.06 X10*3/uL (0.00-0.03); Imm Gran Pct Auto 0.5 % (0.0-0.4); Lymphocytes Absolute Auto 1.3 X10*3/uL (1.2-4.9); Lymphocytes Percent Auto 10.2 % (20-40); Mean Corpuscular HGB Conc 33.3 g/dl (31.0-36.0); Mean Corpuscular Volume 84.1 fL (80.0-98.0); Mean Platelet Volume 11.2 fL (9.4-12.4); Monocytes Absolute Auto 0.6 X10*3/uL (0.1-1.2); Neutrophils Absolute Auto 10.1 x10*3/uL (2.0-8.3); Neutrophils Percent Auto 81.1 % (45-73); Platelet Count 272 X10*3/uL (160-400); Red Blood Count 5.35 X10*6/uL (4.60-5.80); Red Cell Distribution Width 13.8 % (11.0-16.0); White Blood Count 12.4 X10*3/uL (4.8-10.8)
[2025-04-11] MEDS: ondansetron HCL 4 MG/2 ML VIAL IVPUSH (03:15)
[2025-04-11] MEDS: Morphine Sulfate 4 MG/ML CARTRIDGE IVPUSH (03:15)
[2025-04-11] MEDS: 0.9 % Sodium Chloride 1,000 ML 999 ML IV (03:26)
[2025-04-11] MEDS: HYDROmorphone HCl 1 MG/ML SYRINGE IVPUSH ×3 (03:55→15:55)
--- NOTE | 2025-04-11 05:26 | P.HPHOSP_ITS ---
History of Present Illness Date of Service: 04/11/25 Attending physician on admission: Yoav Lenz Chief Complaint: Abdominal pain Patient is a 74-year-old male with past medical history COPD, depression, glaucoma, GERD, VIDA, previous bowel obstruction 2 years ago resolved without surgery, hypertension, insulin-dependent diabetes not on GLP-1, presents to the emergency room with complaints of abdominal pain along with nausea and vomiting that started yesterday after eating a salad at dinner. Workup in the ED noted a CT scan identifying a small bowel obstruction with transition. Last BM was earlier yesterday and was normal. Pt denies diarrhea, but Nausea and abdominal pain are persisting. Pain is 8/10 after previous Dilaudid dose. Pt denies chest pain or SOB at rest. Pt has not smoked for over 30 years. Pt does not use oxygen at home. Pt denies aspiration or dysphagia issues. Pt denies pain with urination or hx of UTI. Emergency room provider spoke with General surgery and hospitalist was asked to admit. NG to low wall suction is now placed with over 300 ccs of bile like content extracted. Patient has received IV morphine then IV Dilaudid for pain management. Per pt, dilaudid more effective for contolling pain. Administering 1 g of IV acetaminophen. Patient has noted history of COPD in his presenting hypoxic on room air. Oxygen ordered. Chest x-ray initiated in the ED s/p NG placement. Indicates proper placement of NG tube and no pulmonary edema, pleural effusion, consolidation or opacity. Noted atelecatasis is present and due to abdominal pain, pt's respirations are somewhat shallow. Patient has a noted leukocytosis 12.4, and lactate is 0.9. No evidence of fever but pt did report chills earlier. UA also ordered. Reviewed initiation of ABX with attending Dr Lenz, will hold off until UA is back. Review of Systems 2 Review of Systems: Patient is reporting abdominal pain, 8/10, with moderate nausea at this time. Patient states he is able to tolerate the NG tube at this time. Patient denies chest pain or shortness of breath. Pt does report passing minimal gas earlier. Yes all other systems are reviewed and are negative PMFSH Medical History SIMON (dyspnea on exertion) Shortness of breath Pedal edema Chest pain in adult Class 2 severe obesity with body mass index (BMI) of 35 to 39.9 with serious comorbidity Bilateral primary osteoarthritis of knee Osteoarthritis of right knee Diabetes mellitus type 2, uncontrolled COPD exacerbation Arthritis of both knees Chronic pain syndrome Allergic rhinitis VIDA on CPAP COPD (chronic obstructive pulmonary disease) Lumbar radiculopathy Allergic rhinitis Asthma Benign prostatic hyperplasia Back pain Sleep apnea HTN (hypertension) Lumbar spondylosis Tendon tear Depression Arthritis Asthma Crohn disease Cognitive capacity: Alert and orientated x3 Functional capacity: independent ambulation Family History Father No problems noted. Mother No problems noted. Surgical History H/O colonoscopy Social History Household Members: Family Housing: House Do you presently have visiting nurse or other home services: No Alcohol intake: never Comment: pain 3-4 left knee and buttock Patient Tobacco Use Status: Former Tobacco user e-Cigarette/Vaping Use: Never Used Second Hand Smoke Exposure: Yes Advance Directives: No Advance Directives Information Provided: No Advance Directives Date on File: 07/07/24 Do you have a plan to hurt others: No Plan service: No Current occupational status: retired Cognitive needs: Yes (cane) Hearing needs: No Vision needs: Yes (Glasses) Ebola Risk: Travel/Contact With Anyone From Affected Area/s: No Has Patient Experienced Ebola Symptoms: No Meds Allergies Allergy/AdvReac Type Severity Reaction Status Date / Time hydrocortisone Allergy Severe SWELLING Verified 04/11/25 02:27 [HYDROCORTISONE] NSAIDS (Non-Steroidal Allergy Severe BLEEDING Verified 04/11/25 02:27 Anti-Inflamma [NSAIDS (NON-STEROIDAL ANTI-INFLAMMA] aspirin Allergy Unknown bleeding Verified 04/11/25 02:27 doxycycline AdvReac Severe in-effectiv Verified 04/11/25 02:27 e Active Medications: Current Medications Acetaminophen (Acetaminophen 325 Mg Tablet) 650 mg PO Q6H PRN PRN Reason: Pain, Mild 1-3,fever,headache Albuterol/Ipratropium (Albuterol/Iprat 2.5/0.5mg 3 Ml Ampul.Neb) 3 ml INHALE Q4H PRN PRN Reason: Shortness of Breath/Wheezing Calcium Carbonate (Calcium Carbonate 750 Mg Tab.Chew) 750 mg PO Q4H PRN PRN Reason: Heartburn Sodium Chloride (Ns) 1,000 mls @ 100 mls/hr IVCONT .Q10H [place] Magnesium Hydroxide (Milk Of Magnesia 30 Ml Oral.Susp) 30 ml PO DAILY PRN PRN Reason: Constipation Melatonin (Melatonin 3 Mg Tablet) 6 mg PO BEDTIME PRN PRN Reason: Insomnia Ondansetron HCl (Ondansetron Hcl 4 Mg/2 Ml Vial) 4 mg IVPUSH Q8H PRN PRN Reason: Nausea and Vomiting Sodium Chloride (0.9 % Sodium Chloride Flush 3 Ml Syringe) 3 ml IVFLUSH QSHIFT [facility] Home Medications ?Medication ?Instructions ?Recorded ?Confirmed ?Last Taken ?Type latanoprost 0.005 % eye drops 1 drp ophthalmic-Left BEDTIME 11/17/21 02/19/25 09/21/24 History brimonidine 0.2 % eye drops 1 drp ophthalmic-Left BID 05/18/23 02/19/25 09/21/24 History albuterol sulfate 90 mcg/actuation 2 puff inhalation Q4H PRN for 06/19/24 02/19/25 06/19/24 08:00 History aerosol inhaler wheezing insulin glargine 100 unit/mL (3 30 unit subcut BEDTIME 06/19/24 02/19/25 09/20/24 History mL) subcutaneous pen (Lantus Solostar U-100 Insulin) timolol maleate 0.5 % eye drops 1 drp ophthalmic-Left BID 06/24/24 02/19/25 09/21/24 History Physical Exam 2 Vital Signs and Narrative: Vital Signs: Last Vital Signs Temp 98.6 F 04/11/25 04:23 Pulse 78 04/11/25 04:23 Resp 16 04/11/25 04:23 BP 177/67 H 04/11/25 04:23 Pulse Ox 87 L 04/11/25 04:23 O2 Del Method Room Air 04/11/25 04:23 BMI result Body Mass Index 33.2 Alert and orientated X3, able to verbalize HPI, PMH, PSH. Neuro: CN II-X11 intact, no deficits, visual acuity intact EYES: PERRLA, EOM intact, sclera nonicteric ENT: hearing intact, NG in place, uvula midline, lips moist, nares patent no epistaxis Cardiac: S1 S2 RRR, no murmur, no JVD, no edema in Lower ext Pulmonary: lungs diminished bilaterally Abdominal: BS hypoactive throughout, pain is across the lower abdomen right and left lower quadrants. Abdomen is grossly distended, tender with palpation, no rebound tenderness or guarding. MSK: strength 5/5 upper and lower extremities : no CVA tenderness no bladder distension Extremities: no edema in lower extremities, PT and DP pulses palpable +2 Psych: mood stable, judgement and insight good Skin: Intact Results Labs 04/11/25 02:22 04/11/25 02:22 Labs: Laboratory Results - last 24 hr 04/11/25 02:22 MCV 84.1 MCH 28.0 MCHC 33.3 RDW 13.8 Plt Count 272 MPV 11.2 Immature Gran % (Auto) 0.5 H Neut % (Auto) 81.1 H Lymph % (Auto) 10.2 L Rabun % (Auto) 5.0 Eos % (Auto) 2.7 Baso % (Auto) 0.5 Lymph # (Auto) 1.3 Rabun # (Auto) 0.6 Eos # (Auto) 0.3 Baso # (Auto) 0.1 Abs Immat Gran (auto) 0.06 H Absolute Neuts (auto) 10.1 H Absolute Nucleated RBC 0.000 Nucleated RBC % (auto) 0.0 Anion Gap 14 Estim Creat Clear Calc 87.6 Estimated GFR > 60 Random Glucose 119 H Calcium 9.1 Magnesium 1.7 Total Bilirubin 0.5 AST 25 ALT 18 Alkaline Phosphatase 137 H C-Reactive Protein 0.64 H Total Protein 6.4 L Albumin 4.0 ECG Prior ECG tracings: not available for review (ordered on admission ) Imaging Radiologist's Impressions: CT ABDOMEN Impression: 1. Small-bowel obstruction with transition from dilated to decompressed small bowel seen within the right midabdomen. Surgical consultation suggested 2. No findings of perforation. 3. Focal rounded hyperdensity within the dilated small bowel loop is nonspecific. However, the possibility of intraluminal blood products is not excluded. Correlation with any abnormal gastrointestinal bleeding suggested. CXR Findings: Enteric sump tube has been placed with tip projected over the mid gastric body. Mild hypoinflation. Cardiac silhouette is at the upper limits of normal for size. Mild atelectasis within the cardiophrenic angles bilaterally. No pneumothorax or pleural effusion. IMPRESSION: Enteric sump tube as above. Assessment and Plan (1) Small bowel obstruction: Status: Acute Plan Patient is a 74-year-old male with past medical history COPD, depression, glaucoma, GERD, VIDA, hypertension, insulin-dependent diabetes is being admitted for small-bowel obstruction with consultation with General surgery. Small-bowel obstruction -NG tube to low wall suction, chest x-ray confirmed proper placement -NPO -IV fluids ordered -Lactate 0.9 -General surgery consultation placed -Antiemetics ordered -Pain management ordered, one dose of IV Ofirmev provided along with dilaudid prn (has been more effective than morphine) -Pt reports hx of Bowel Obstruction 2 years prior, did not require surgical intervention Hypoxia -Oxygen via nasal cannula, likely from shallow breathing related to abominal pain Atelectasis noted on CXR -Chest x-ray completed, no consolidation or opacity is present. No pulmonary edema or pleural effusion present -Patient does have a leukocytosis, no fever, patient did report chills only: We will hold on starting antibiotics until UA is completed (Reviewed with attending Dr Lenz, no ABX at this time, low threshold to initiate) Lactate 0.9. -VBG ordered, results pending -Duo nebs and supportive care -Incentive spirometry once NG is out COPD -Duo nebs and supportive care -Pt does not use Oxygen at home VIDA -Pt does use CPAP at home Insulin-dependent diabetes mellitus -SSI NPO status -PT is NPO -blood glucose currently running 132 -Pt does not use GLP-1 medications -Denies hx of gastroparesis Hypertension -Hydralazine 10 mg q.6 p.r.n. for systolic greater than 160 -Holding routine home meds as patient is NPO Glaucoma -continue timolol and latanoprost once med rec is completed DVT prophylaxis: Holding Lovenox in case patient requires surgical intervention PPI prophylaxis: Protonix Med rec pending Full Code status Quality Stroke Does the patient have a stroke diagnosis?: No Reason for No Anti-thrombotic by Day Two: Contraindicated VTE Prior VTE?: No VTE Risk Level:: Medical - moderate - high VTE Device Contraindication: N/A - Device Ordered VTE Drug Contraindication: N/A - Med Ordered
[2025-04-11 05:28] LABS: Lactic Acid 0.9 mmol/L (0.5-2.0)
[2025-04-11 05:39] LABS: Glucose, Whole Blood 132 mg/dL (60-115)
[2025-04-11] MEDS: 0.9 % Sodium Chloride 1,000 ML 100 ML IVCONT (05:42)
--- NOTE | 2025-04-11 06:21 | PC.NURSE ---
600 mL output from ngt at this time
--- NOTE | 2025-04-11 06:23 | PC.NURSE ---
Dr Lenz sent EKG. responded ok
[2025-04-11 06:28] LABS: VBG HCO3 29 mmol/L (22-26); VBG pCO2 34 mmHg; VBG pH 7.53 (7.32-7.43); VBG pO2 89 mmHg
[2025-04-11 06:30] LABS: Venous Blood Gas Refer to POC result
[2025-04-11] MEDS: Acetaminophen 1,000 MG/100 ML PIGGYBACK 400 MG IV (06:59)
[2025-04-11] MEDS: Pantoprazole Sodium 40 MG/10 ML VIAL IVPUSH (07:07)
[2025-04-11] MEDS: hydrALAZINE HCl 20 MG/ML VIAL 10 MG IVPUSH ×2 (07:07→16:51)
--- NOTE | 2025-04-11 07:19 | PC.NURSE ---
NG tube remains in place intermittent suction - approx 600mL brown output. patient tolerating fairly. IV tylenol has infused, medicated per the MAR. patient remains NPO at this time, no obvious signs/symptoms of distress noted. call rivas within reach
--- NOTE | 2025-04-11 08:25 | P.CONGS_ITS ---
History of Present Illness Consult details Consult date: 04/11/25 <Aaron lEkins PA-C - Last Filed: 04/11/25 09:21> Reason for consult: abdominal pain <Aaron Elkins PA-C - Last Filed: 04/11/25 09:21> Narrative: 74 year old male with a history of Chrons, T2DM, COPD, asthma, ESTELLA, previous SBO, presented to the ED with severe 10/10 abdominal pain that happened after dinner last night. Patient states he has associated nausea and episodes of vomiting. He states his abdomen was very distended and firm last night. He states this has happened to him in the past when he had a chrons flare and resolved with steroids. He denies taking any medicatoins for chrons at this time He reports he has passed small amounts of gas but has not passed a bowel movement in a few days. Patient had abdominal CT, showing, Small-bowel obstruction with transition from dilated to decompressed small bowel seen within the right midabdomen. Ng tube was placed in the ED, output about 450cc. Patient reports he feels much better this morning. No longer feeling nauseous, feels less distended. He continues to have mild abdominal pain in the epigastric area. Pain is well controlled on current medication. He denies any history of abdominal surgery. <Aaron Elkins PA-C - Last Filed: 04/11/25 09:21> Review of Systems 2 Review of Systems: Yes all other systems are reviewed and are negative < Aaron Elkins PA-C - Last Filed: 04/11/25 09:21> [facility] Past Medical History Medical History: Medical History SIMON (dyspnea on exertion) Shortness of breath Pedal edema Chest pain in adult Class 2 severe obesity with body mass index (BMI) of 35 to 39.9 with serious comorbidity Bilateral primary osteoarthritis of knee Osteoarthritis of right knee Diabetes mellitus type 2, uncontrolled COPD exacerbation Arthritis of both knees Chronic pain syndrome Allergic rhinitis VIDA on CPAP COPD (chronic obstructive pulmonary disease) Lumbar radiculopathy Allergic rhinitis Asthma Benign prostatic hyperplasia Back pain Sleep apnea HTN (hypertension) Lumbar spondylosis Tendon tear Depression Arthritis Asthma Crohn disease <Aaron Elkins PA-C - Last Filed: 04/11/25 09:21> Family History Family History: Family History Father No problems noted. Mother No problems noted. <Aaron Elkins PA-C - Last Filed: 04/11/25 09:21> Surgical History Surgical History: Surgical History H/O colonoscopy <Aaron Elkins PA-C - Last Filed: 04/11/25 09:21> Social History Social History: Social History Household Members: Family Housing: House Do you presently have visiting nurse or other home services: No Alcohol intake: never Comment: pain 3-4 left knee and buttock Patient Tobacco Use Status: Former Tobacco user Smoked in Last 30 Days: No e-Cigarette/Vaping Use: Never Used Second Hand Smoke Exposure: Yes Use of substances other than those prescribed or required for medical reasons: No Advance Directives: No Advance Directives Information Provided: No Advance Directives Date on File: 07/07/24 Do you have a plan to hurt others: No Plan service: No Current occupational status: retired Cognitive needs: Yes (cane) Hearing needs: No Vision needs: Yes (Glasses) <Aaron Elkins PA-C - Last Filed: 04/11/25 09:21> Travel History Ebola Risk: Travel/Contact With Anyone From Affected Area/s: No <Aaron Elkins PA-C - Last Filed: 04/11/25 09:21> Has Patient Experienced Ebola Symptoms: No <Aaron Elkins PA-C - Last Filed: 04/11/25 09:21> Meds Allergies/Adverse reactions: Allergies Allergy/AdvReac Type Severity Reaction Status Date / Time hydrocortisone Allergy Severe SWELLING Verified 04/11/25 02:27 [HYDROCORTISONE] NSAIDS (Non-Steroidal Allergy Severe BLEEDING Verified 04/11/25 02:27 Anti-Inflamma [NSAIDS (NON-STEROIDAL ANTI-INFLAMMA] aspirin Allergy Unknown bleeding Verified 04/11/25 02:27 doxycycline AdvReac Severe in-effectiv Verified 04/11/25 02:27 e <Aaron Elkins PA-C - Last Filed: 04/11/25 09:21> Active Medications: Current Medications Acetaminophen (Acetaminophen 325 Mg Tablet) 650 mg PO Q6H PRN PRN Reason: Pain, Mild 1-3,fever,headache Albuterol/Ipratropium (Albuterol/Iprat 2.5/0.5mg 3 Ml Ampul.Neb) 3 ml INHALE Q4H PRN PRN Reason: Shortness of Breath/Wheezing Calcium Carbonate (Calcium Carbonate 750 Mg Tab.Chew) 750 mg PO Q4H PRN PRN Reason: Heartburn Dextrose (Dextrose 50 % 25 Gm/50 Ml Syringe) 25 gm IVPUSH Q15M PRN; Protocol PRN Reason: per Hypoglycemia Standing Ord. Glucose (Glucose Gel 15 Gm Gel..Gram.) 15 gm PO Q15M PRN; Protocol PRN Reason: per Hypoglycemia Standing Ord. Hydralazine HCl (Hydralazine Hcl 20 Mg/Ml Vial) 10 mg IVPUSH Q6H PRN; Protocol PRN Reason: SBP > 160 Last Admin: 04/11/25 07:07 Dose: 10 mg Hydromorphone HCl (Hydromorphone Hcl 1 Mg/Ml Syringe) 1 mg IVPUSH Q3H PRN; Protocol PRN Reason: Pain, Severe (Pain Scale 7-10) Last Admin: 04/11/25 06:12 Dose: 1 mg Sodium Chloride (Ns) 1,000 mls @ 100 mls/hr IVCONT .Q10H [facility] Last Admin: 04/11/25 05:42 Dose: 100 mls/hr Insulin Human Lispro (Insulin Lispro 100 Unit/Ml 3 Ml Vial) 0 unit SUBCUT Q6H [facility]; Protocol Last Admin: 04/11/25 06:11 Dose: Not Given Magnesium Hydroxide (Milk Of Magnesia 30 Ml Oral.Susp) 30 ml PO DAILY PRN PRN Reason: Constipation Melatonin (Melatonin 3 Mg Tablet) 6 mg PO BEDTIME PRN PRN Reason: Insomnia Ondansetron HCl (Ondansetron Hcl 4 Mg/2 Ml Vial) 4 mg IVPUSH Q8H PRN PRN Reason: Nausea and Vomiting Pantoprazole Sodium (Pantoprazole Sodium 40 Mg/10 Ml Vial) 40 mg IVPUSH DAILY@0630 [place] Last Admin: 04/11/25 07:07 Dose: 40 mg Sodium Chloride (0.9 % Sodium Chloride Flush 3 Ml Syringe) 3 ml IVFLUSH QSHIFT [facility] Last Admin: 04/11/25 07:13 Dose: Not Given <Aaron Elkins PA-C - Last Filed: 04/11/25 09:21> Home medications: Home Medications ?Medication ?Instructions ?Recorded ?Confirmed ?Last Taken ?Type latanoprost 0.005 % eye drops 1 drp ophthalmic-Left BEDTIME 11/17/21 02/19/25 09/21/24 History brimonidine 0.2 % eye drops 1 drp ophthalmic-Left BID 05/18/23 02/19/25 09/21/24 History albuterol sulfate 90 mcg/actuation 2 puff inhalation Q4H PRN for 06/19/24 02/19/25 06/19/24 08:00 History aerosol inhaler wheezing insulin glargine 100 unit/mL (3 30 unit subcut BEDTIME 06/19/24 02/19/25 09/20/24 History mL) subcutaneous pen (Lantus Solostar U-100 Insulin) timolol maleate 0.5 % eye drops 1 drp ophthalmic-Left BID 06/24/24 02/19/25 09/21/24 History clonazepam 0.5 mg tablet (Klonopin) 0.25 mg PO DAILY 04/11/25 Unknown History clonazepam 0.5 mg tablet (Klonopin) 0.5 mg PO BEDTIME 04/11/25 Unknown History venlafaxine 75 mg capsule,extended 75 mg PO DAILY 04/11/25 Unknown History release 24 hr (Effexor XR) <Aaron Elkins PA-C - Last Filed: 04/11/25 09:21> Physical Exam 2 Vital Signs: Vital Signs: Last Vital Signs Temp 98.6 F 04/11/25 04:23 Pulse 70 04/11/25 07:17 Resp 16 04/11/25 07:17 BP 187/77 H 04/11/25 07:06 Pulse Ox 95 04/11/25 07:17 O2 Del Method Oxymask 04/11/25 07:17 O2 Flow Rate 1 04/11/25 07:17 BMI result Body Mass Index 33.2 <Aaron Elkins PA-C - Last Filed: 04/11/25 09:21> Const: General: comfortable and no acute distress <Aaron Elkins PA-C - Last Filed: 04/11/25 09:21> Orientation/consciousness: patient oriented x3 <Aaron Elkins PA-C Mely Last Filed: 04/11/25 09:21> Resp: Effort & Inspection: normal respiratory effort and able to speak in complete sentences <ANTOINETTE Skelton Last Filed: 04/11/25 09:21> GI: Inspection: Yes distended (Mild, upper abdomen) <Aaron Elkins PA-C Mely Last Filed: 04/11/25 09:21> Palpation (GI): Soft to palpation, not firm, Tenderness to palpation present (GI) in the epigastrum, no guarding and not rigid <Aaron Elkins PA-C Mely Last Filed: 04/11/25 09:21> Percussion: Yes normal to percussion <ANTOINETTE Skelton Last Filed: 04/11/25 09:21> Auscultation: normal bowel sounds <Aaron Elkins PA-C Mely Last Filed: 04/11/25 09:21> Neuro: General: patient oriented x3 <Aaron Elkins PA-C Mely Last Filed: 04/11/25 09:21> Results Labs Result diagrams: 04/11/25 02:22 04/11/25 02:22 <Aaron Elkins PA-C Mely Last Filed: 04/11/25 09:21> Labs: Abnormal lab results 04/11/25 04/11/25 04/11/25 Range/Units 02:22 05:35 06:24 WBC 12.4 H (4.8-10.8) X10*3/uL Immature Gran % (Auto) 0.5 H (0.0-0.4) % Neut % (Auto) 81.1 H (45-73) % Lymph % (Auto) 10.2 L (20-40) % Abs Immat Gran (auto) 0.06 H (0.00-0.03) X10*3/uL Absolute Neuts (auto) 10.1 H (2.0-8.3) x10*3/uL VBG pH 7.53 H (7.32-7.43) VBG HCO3 29 H (22-26) mmol/L Carbon Dioxide 31 H (22-29) mmol/L POC Glucose 132 H (60-115) mg/dL Random Glucose 119 H (60-115) mg/dL Alkaline Phosphatase 137 H (39-117) U/L C-Reactive Protein 0.64 H (< or = 0.50) mg/dL Total Protein 6.4 L (6.5-8.0) g/dL Short CBC 04/11/25 Range/Units 02:22 WBC 12.4 H (4.8-10.8) X10*3/uL Hgb 15.0 (14.0-18.0) g/dl Hct 45.0 (42.0-52.0) % Plt Count 272 (160-400) X10*3/uL BMP 04/11/25 02:22 Sodium 145 Potassium 3.4 Chloride 103 Carbon Dioxide 31 H BUN 15 Creatinine 0.87 Calcium 9.1 Liver Function 04/11/25 Range/Units 02:22 Total Bilirubin 0.5 (0.0-1.0) mg/dL AST 25 (5-37) U/L ALT 18 (0-40) U/L Alkaline Phosphatase 137 H (39-117) U/L Albumin 4.0 (3.5-5.0) g/dL All other labs normal. <Aaron Elkins PA-C - Last Filed: 04/11/25 09:21> Assessment and Plan (1) Small bowel obstruction: Status: Acute <Aaron Elkins PA-C - Last Filed: 04/11/25 09:21> (2) Crohn's disease of small intestine with intestinal obstruction: Status: Acute <Aaron Elkins PA-C - Last Filed: 04/11/25 09:21> 74 year old male with a history of Chrons, T2DM, COPD, asthma, ESTELLA, previous SBO, seen in consult for SBO. He presented to the ED with severe 10/10 abdominal pain that happened after dinner last night. Patient had associated n/v and was significantly distended on evaluation in the ED. I reviewed the abdominal CT, showing Small-bowel obstruction with transition from dilated to decompressed small bowel seen within the right midabdomen. NG output currently 450 cc on intermittent suction. On exam patient is mildly distended in the upper abdomen, tender in the epigastric area Recommend NPO, IV fluids Monitor NG tube output Serial abdominal exams Recommend IV methylprednisolone for Crohn's flare. Will defer to GI for chrons management <Aaron Elkins PA-C - Last Filed: 04/11/25 09:21> 74 year old male with a history of Crohn's, T2DM, COPD, asthma, ESTELLA, previous SBO, seen in consult for SBO. He presented to the ED with severe 10/10 abdominal pain that happened after dinner last night. Patient had associated n/v and was significantly distended on evaluation in the ED. I reviewed the abdominal CT, showing Small-bowel obstruction with transition from dilated to decompressed small bowel seen within the right midabdomen. NG output currently 450 cc on intermittent suction. On exam patient is mildly distended in the upper abdomen, tender in the epigastric area Recommend NPO, IV fluids Monitor NG tube output Serial abdominal exams Recommend IV methylprednisolone for Crohn's flare. Will defer to GI for Crohn's management Patient seen and examined independently and I agree with the above assessment and plan. Images reviewed. <Garrett Alexander MD - Last Filed: 04/11/25 09:30> Procedures Date of Service Date of Service: 04/11/25 <Aaron Elkins PA-C - Last Filed: 04/11/25 09:21> 04/11/25 <Garrett Alexander MD - Last Filed: 04/11/25 09:30>
--- NOTE | 2025-04-11 09:38 | PHA.MEDREC ---
Addendum entered by Tomasa James [facility] 04/11/25 11:21: Reviewed by pharmacist, there is no claim history for brimonidine eye drops so did not change directions to scheduled. I would re evaluate if patient still should be taking the supply they have at home, it is not usually prescribed as prn Original Note: Pharmacy Consult ? Medication Reconciliation Pharmacy has completed the medication reconciliation. Spoke with pt and he confirmed his medications. Pt states he still has Brimonidine eye drops at home he has as needed for eye pressure in his left eye from glaucoma. Pt also confirmed his Insulin Lispro and confirmed he tests TIDAC and injects 15 units according to what his blood sogar levels are.
--- NOTE | 2025-04-11 12:23 | CONS_ITS ---
DATE OF SERVICE: 04/11/2025 REFERRING PHYSICIAN: Tram Moore MD REASON FOR CONSULTATION: Crohn's disease with small bowel obstruction. HISTORY OF PRESENT ILLNESS: Mr. Alicea is a pleasant 74-year-old man seen today in consultation because of Crohn's disease with a small bowel obstruction. He has a longstanding history of Crohn's disease with prior history of intestinal obstructions generally, which have responded to treatment with NG suction and steroids. He has not required surgery. Small bowel follow-through in 2015 showed no small bowel abnormalities. He was last evaluated with colonoscopy in July 2020, which showed no evidence of active ileitis or colitis. He did have biopsies, which showed no active Crohn's disease and a small tubular adenoma was removed as well. We will review this today. He has in the past been treated with Imuran, but apparently stopped taking this on his own at some point. He has been off this for several years. He developed abdominal pain yesterday after eating a salad. This became associated with abdominal distension, nausea and vomiting and he presented to the emergency room. He was evaluated with imaging studies, which are reviewed. CT scanning is interpreted as showing small bowel obstruction within the right mid abdomen. NG tube has been inserted and has drained about 800 mL of enteric contents without any blood. He currently feels somewhat better. PAST MEDICAL HISTORY: 1. Crohn's disease involving the small intestine with history of obstruction. Previous therapy, Imuran. He has not been seen in the office since 2019. 2. Gastroesophageal reflux disease. 3. Asthma. 4. Degenerative joint disease. 5. Hypertension. 6. Back pain. 7. Colon polyps. 8. Gastritis. 9. COPD. 10. Diabetes mellitus. CURRENT MEDICATIONS: Current medication list is reviewed in the chart. ALLERGIES: NSAIDS AND HYDROCORTISONE. FAMILY HISTORY: This is reviewed with the patient and is noncontributory. SOCIAL HISTORY: There is no current tobacco, alcohol, or substance abuse. REVIEW OF SYSTEMS: SKIN: No pruritus. HEENT: Negative. CARDIOPULMONARY: No shortness of breath or chest pain. GASTROINTESTINAL: As above. GENITOURINARY: Negative. NEUROPSYCHIATRIC: Negative. PHYSICAL EXAMINATION: GENERAL: Shows a pleasant male, lying on a stretcher in the emergency department. VITAL SIGNS: Reviewed in the electronic medical record and are stable. SKIN: Anicteric. HEENT: Shows no scleral icterus. NECK: Without lymphadenopathy or thyromegaly. LUNGS: Clear. HEART: Shows regular rate and rhythm. S1, S2. No murmur. ABDOMEN: Mildly distended. Bowel sounds are present, although somewhat diminished. There is no guarding or generalized tenderness. There is some mild tenderness on the right side in the periumbilical area. EXTREMITIES: Without edema. LABORATORY DATA AND IMAGING STUDIES: Reviewed. IMPRESSION: Small-bowel obstruction with history of Crohn's disease. I agree with treating him with NG suction. I would recommend Solu-Medrol 20 mg IV q.6 hours and he will need outpatient followup to consider resuming therapy for his Crohn's disease. I discussed this with him. Thanks for asking me to see him. I will follow him in the hospital with you. MD FARHEEN Garcia/PEDRO / [phone]
[2025-04-11 12:31] LABS: Glucose, Whole Blood 137 mg/dL (60-115)
[2025-04-11 16:13] LABS: Glucose, Whole Blood 122 mg/dL (60-115)
[2025-04-11] MEDS: METHYLPREDNISOLONE SOD SUCC IV ×2 (16:21→23:02)
[2025-04-11] MEDS: SODIUM CHLORIDE 0.9% IV ×2 (16:21→23:02)
--- NOTE | 2025-04-11 16:24 | HO.PM.IMPN ---
Subjective Subjective Date of Service: 04/11/25 Interval History: abd less painful, NG tube with dark liquid Review of Systems Review of Systems: Yes all other systems are reviewed and are negative Physical Exam Vital Signs: Vital Signs: Last Vital Signs Temp 98.2 F 04/11/25 15:15 Pulse 62 04/11/25 15:15 Resp 18 04/11/25 15:15 BP 175/73 H 04/11/25 15:15 Pulse Ox 96 04/11/25 15:15 O2 Del Method Oxymask 04/11/25 15:15 O2 Flow Rate 2 04/11/25 15:15 BMI result Body Mass Index 33.2 Gen: in no acute distress HEENT: sclera anicteric, moist mucus membranes Neck: supple Lungs: clear to auscultation bilaterally Heart: regular rate and rhythm, no murmurs Abd: slightly distended, mild tenderness, hypoactive bowel sounds, NG tube with dark liquid Ext: no edema Skin: warm/well-perfused Neuro: alert and oriented x3, no focal findings Psych: appropriate affect Objective Data Active Medications Acetaminophen (Acetaminophen 325 Mg Tablet) 650 mg PO Q6H PRN PRN Reason: Pain, Mild 1-3,fever,headache Albuterol/Ipratropium (Albuterol/Iprat 2.5/0.5mg 3 Ml Ampul.Neb) 3 ml INHALE Q4H PRN PRN Reason: Shortness of Breath/Wheezing Calcium Carbonate (Calcium Carbonate 750 Mg Tab.Chew) 750 mg PO Q4H PRN PRN Reason: Heartburn Dextrose (Dextrose 50 % 25 Gm/50 Ml Syringe) 25 gm IVPUSH Q15M PRN; Protocol PRN Reason: per Hypoglycemia Standing Ord. Glucose (Glucose Gel 15 Gm Gel..Gram.) 15 gm PO Q15M PRN; Protocol PRN Reason: per Hypoglycemia Standing Ord. Hydralazine HCl (Hydralazine Hcl 20 Mg/Ml Vial) 10 mg IVPUSH Q6H PRN; Protocol PRN Reason: SBP > 160 Last Admin: 04/11/25 07:07 Dose: 10 mg Documented By: LAFLAMC Hydromorphone HCl (Hydromorphone Hcl 1 Mg/Ml Syringe) 1 mg IVPUSH Q3H PRN; Protocol PRN Reason: Pain, Severe (Pain Scale 7-10) Last Admin: 04/11/25 15:55 Dose: 1 mg Documented By: DA Sodium Chloride (Ns) 1,000 mls @ 100 mls/hr IVCONT .Q10H COUNT INCLUDES THE [facility] Last Admin: 04/11/25 05:42 Dose: 100 mls/hr Documented By: IWONA Methylprednisolone Sodium Succinate 20 mg/ Sodium Chloride 50 mls @ 50 mls/hr IV Q8H COUNT INCLUDES THE [facility] Stop: 04/12/25 08:59 Insulin Human Lispro (Insulin Lispro 100 Unit/Ml 3 Ml Vial) 0 unit SUBCUT Q6H COUNT INCLUDES THE [facility]; Protocol Last Admin: 04/11/25 13:10 Dose: Not Given Documented By: DA Non-Admin Reason: No Insulin Coverage Magnesium Hydroxide (Milk Of Magnesia 30 Ml Oral.Susp) 30 ml PO DAILY PRN PRN Reason: Constipation Melatonin (Melatonin 3 Mg Tablet) 6 mg PO BEDTIME PRN PRN Reason: Insomnia Ondansetron HCl (Ondansetron Hcl 4 Mg/2 Ml Vial) 4 mg IVPUSH Q8H PRN PRN Reason: Nausea and Vomiting Pantoprazole Sodium (Pantoprazole Sodium 40 Mg/10 Ml Vial) 40 mg IVPUSH DAILY@0630 COUNT INCLUDES THE [facility] Last Admin: 04/11/25 07:07 Dose: 40 mg Documented By: IWONA Sodium Chloride (0.9 % Sodium Chloride Flush 3 Ml Syringe) 3 ml IVFLUSH QSHIFT COUNT INCLUDES THE [facility] Last Admin: 04/11/25 07:13 Dose: Not Given Documented By: ZELALEM Non-Admin Reason: IV Running Labs 04/11/25 02:22 04/11/25 02:22 Labs: Laboratory Results - last 24 hr 04/11/25 04/11/25 04/11/25 02:22 05:09 05:35 MCV 84.1 MCH 28.0 MCHC 33.3 RDW 13.8 Plt Count 272 MPV 11.2 Immature Gran % (Auto) 0.5 H Neut % (Auto) 81.1 H Lymph % (Auto) 10.2 L [place] % (Auto) 5.0 Eos % (Auto) 2.7 Baso % (Auto) 0.5 Lymph # (Auto) 1.3 [place] # (Auto) 0.6 Eos # (Auto) 0.3 Baso # (Auto) 0.1 Abs Immat Gran (auto) 0.06 H Absolute Neuts (auto) 10.1 H Absolute Nucleated RBC 0.000 Nucleated RBC % (auto) 0.0 VBG pH VBG pCO2 VBG pO2 VBG HCO3 VBG O2 Saturation VBG Base Excess Anion Gap 14 Estim Creat Clear Calc 87.6 Estimated GFR > 60 POC Glucose 132 H Random Glucose 119 H Lactic Acid 0.9 Calcium 9.1 Magnesium 1.7 Total Bilirubin 0.5 AST 25 ALT 18 Alkaline Phosphatase 137 H C-Reactive Protein 0.64 H Total Protein 6.4 L Albumin 4.0 04/11/25 04/11/25 04/11/25 06:24 12:26 16:07 MCV MCH MCHC RDW Plt Count MPV Immature Gran % (Auto) Neut % (Auto) Lymph % (Auto) [place] % (Auto) Eos % (Auto) Baso % (Auto) Lymph # (Auto) [place] # (Auto) Eos # (Auto) Baso # (Auto) Abs Immat Gran (auto) Absolute Neuts (auto) Absolute Nucleated RBC Nucleated RBC % (auto) VBG pH 7.53 H VBG pCO2 34 VBG pO2 89 VBG HCO3 29 H VBG O2 Saturation 98.0 VBG Base Excess 7.0 Anion Gap Estim Creat Clear Calc Estimated GFR POC Glucose 137 H 122 H Random Glucose Lactic Acid Calcium Magnesium Total Bilirubin AST ALT Alkaline Phosphatase C-Reactive Protein Total Protein Albumin Assessment and Plan (1) Small bowel obstruction: Status: Acute Plan d1 for 74yo M with hx Crohn's disease with history of SBO and off azathioprine for years, asthma/COPD overlap not on home O2, HTN, DM2, peripheral neuropathy, GERD, VIDA on CPAP, mood disorder; presenting with acute abdominal pain, distension, nausea, and vomiting and found to have SBO SBO associated with Crohn's disease - continue NG tube, IV fluids, Surg consulted and nonoperative for now, GI consulted and will start IV methylprednisolone mild hypoxia - due to atelectasis from abd distension; encourage IS asthma/COPD not in acute exacerbation - continue prn nebs/rescue inhaler DM2 - hold basal insulin while NPO, give correction-dose lispro HTN - continue metoprolol succinate mood disorder - continue venlafaxine + zolpidem + clonazepam glaucoma - continue timolol + latanoprost VTE prophylaxis - enoxaparin dispo - TBD Total time managing care of this patient today: 35 minutes. Quality Stroke Does the patient have a stroke diagnosis?: No Reason for No Anti-thrombotic by Day Two: Contraindicated VTE Prior VTE?: No VTE Risk Level:: Medical - moderate - high VTE Device Contraindication: N/A - Device Ordered VTE Drug Contraindication: N/A - Med Ordered
[2025-04-11] MEDS: Lactated Ringers 1,000 ML 100 ML IVCONT (18:02)
[2025-04-11] MEDS: Enoxaparin Sodium 40 MG/0.4 ML SYRINGE SUBCUT (18:03)
[2025-04-11] MEDS: timoloL maleate 0.5 % Oph Sol 5 ML DRBTL 1 DROP EYE-LEFT (21:07)
[2025-04-11] MEDS: Venlafaxine HCl ER 150 MG CAP.ER.24H PO (21:07)
[2025-04-11] MEDS: clonazePAM 0.5 MG TABLET PO (21:07)
[2025-04-11] MEDS: Latanoprost 0.005 % Ophth Sol 2.5 ML DROPS 1 DROP EYE-LEFT (21:07)
[2025-04-11] MEDS: Brimonidine Tartrate 0.2% Oph 5 ML BOTTLE 1 DROP EYE-LEFT (21:07)
[2025-04-11] MEDS: Zolpidem Tartrate 5 MG TABLET PO (21:07)
[2025-04-11 22:44] LABS: Glucose, Whole Blood 171 mg/dL (60-115)
[2025-04-11] MEDS: Insulin Lispro 100 UNIT/ML 3 ML VIAL SUBCUT (22:59)
[2025-04-12 03:30] VITALS: BP 178/82; PULSE 76; RESP 18; TEMP 36.7; O2SAT 95
[2025-04-12] MEDS: Lactated Ringers 1,000 ML 100 ML IVCONT (03:41)
[2025-04-12] MEDS: hydrALAZINE HCl 20 MG/ML VIAL 10 MG IVPUSH (04:26)
[2025-04-12 05:23] LABS: Glucose, Whole Blood 201 mg/dL (60-115)
[2025-04-12 05:25] VITALS: BP 150/72
[2025-04-12] MEDS: Insulin Lispro 100 UNIT/ML 3 ML VIAL SUBCUT ×2 (05:29→11:17)
[2025-04-12] MEDS: Pantoprazole Sodium 40 MG/10 ML VIAL IVPUSH (05:31)
[2025-04-12 06:04] LABS: MANUAL DIFF FLAG NO
[2025-04-12 06:08] LABS: Basophils Percent Auto 0.1 % (0-2); Hemoglobin 14.7 g/dl (14.0-18.0); Imm Gran Abs Auto 0.04 X10*3/uL (0.00-0.03); Imm Gran Pct Auto 0.5 % (0.0-0.4); Lymphocytes Absolute Auto 0.8 X10*3/uL (1.2-4.9); Lymphocytes Percent Auto 10.4 % (20-40); Mean Corpuscular HGB Conc 34.2 g/dl (31.0-36.0); Mean Corpuscular Hemoglobin 28.3 pg (27.0-33.0); Mean Corpuscular Volume 82.9 fL (80.0-98.0); Mean Platelet Volume 11.1 fL (9.4-12.4); Monocytes Percent Auto 0.3 % (2-11); Neutrophils Absolute Auto 6.5 x10*3/uL (2.0-8.3); Neutrophils Percent Auto 88.7 % (45-73); Platelet Count 267 X10*3/uL (160-400); Red Blood Count 5.19 X10*6/uL (4.60-5.80); Red Cell Distribution Width 13.7 % (11.0-16.0); White Blood Count 7.3 X10*3/uL (4.8-10.8)
[2025-04-12 06:33] LABS: Anion Gap 13 (12-20); Blood Urea Nitrogen 14 mg/dL (9-16); Calcium 9.3 mg/dL (8.4-10.2); Carbon Dioxide 28 mmol/L (22-29); Chloride 105 mmol/L (96-108); Creatinine Clr Calc Pharmacy 105.9; Estimated Glomerular Filt Rate > 60; Glucose Random 187 mg/dL (60-115); Magnesium 1.7 mg/dL (1.6-2.6); Phosphorus 3.9 mg/dL (2.7-4.5); Potassium 3.9 mmol/L (3.3-5.1); Sodium 142 mmol/L (135-145)
[2025-04-12 06:34] LABS: Alanine Aminotransferase 11 U/L (0-40); Albumin Level 3.7 g/dL (3.5-5.0); Alkaline Phosphatase 127 U/L (39-117); Anion Gap 14 (12-20); Aspartate Amino Transferase 21 U/L (5-37); Bilirubin Total 0.6 mg/dL (0.0-1.0); Blood Urea Nitrogen 13 mg/dL (9-16); Calcium 9.2 mg/dL (8.4-10.2); Carbon Dioxide 26 mmol/L (22-29); Chloride 106 mmol/L (96-108); Creatinine Clr Calc Pharmacy 110.5; Estimated Glomerular Filt Rate > 60; Glucose Random 187 mg/dL (60-115); Potassium 3.6 mmol/L (3.3-5.1); Sodium 142 mmol/L (135-145); Total Protein 6.1 g/dL (6.5-8.0)
[2025-04-12] MEDS: Budesonide 0.5 MG/2 ML AMPUL.NEB INHALE (07:29)
[2025-04-12 07:32] VITALS: PULSE 76; RESP 18; O2SAT 94
[2025-04-12 08:00] VITALS: BP 160/80; PULSE 84; RESP 18; TEMP 36.6; O2SAT 95
[2025-04-12] MEDS: Metoprolol Succinate ER 50 MG TAB.ER.24H PO (08:06)
[2025-04-12] MEDS: Magnesium Oxide 400 MG TABLET PO (08:06)
[2025-04-12] MEDS: clonazePAM 0.5 MG TABLET 0.25 MG PO (08:06)
[2025-04-12] MEDS: Venlafaxine HCl ER 75 MG CAP.ER.24H PO (08:06)
--- NOTE | 2025-04-12 08:44 | P.PNGS_ITS ---
Subjective Subjective Date of Service: 04/12/25 Interval history: Patient feels improved, reporting passing flatus and having a bowel movement. Abdominal pain improved. Physical Exam 2 Vital Signs: Vital Signs: Last Vital Signs Temp 97.8 F 04/12/25 08:00 Pulse 84 04/12/25 08:00 Resp 18 04/12/25 08:00 BP 160/80 H 04/12/25 08:00 Pulse Ox 95 04/12/25 08:00 O2 Del Method Room Air 04/12/25 08:00 O2 Flow Rate 2 04/12/25 03:30 BMI result Body Mass Index 33.2 Const: General: comfortable Nutritional Appearance: well nourished O rientation/consciousness: patient oriented x3 Resp: Effort & Inspection: normal respiratory effort GI: Inspection: Yes normal to inspection Palpation (GI): Soft to palpation, nontender, no guarding and not rigid Percussion: Yes normal to percussion Skin: Other: Warm and dry Neuro: General: patient oriented x3 Objective Data Active Medications Acetaminophen (Acetaminophen 325 Mg Tablet) 650 mg PO Q6H PRN PRN Reason: Pain, Mild 1-3,fever,headache Albuterol Sulfate (Albuterol Sulfate (0.083%) 2.5 Mg/3 Ml Vial.Neb) 2.5 mg INHALE Q4H PRN PRN Reason: shortness of breath or wheezing Albuterol Sulfate (Albuterol Sulfate 90 Mcg 8 Gm Inhaler) 2 puff INHALE Q4H PRN PRN Reason: for wheezing Albuterol/Ipratropium (Albuterol/Iprat 2.5/0.5mg 3 Ml Ampul.Neb) 3 ml INHALE Q4H PRN PRN Reason: Shortness of Breath/Wheezing Brimonidine Tartrate (Brimonidine Tartrate 0.2% Oph 5 Ml Bottle) 1 drop EYE- LEFT BID PRN PRN Reason: Eye Pressure Last Admin: 04/11/25 21:07 Dose: 1 drop Documented By: MAGGY Budesonide (Budesonide 0.5 Mg/2 Ml Ampul.Neb) 0.5 mg INHALE RDAILY [facility] Last Admin: 04/12/25 07:29 Dose: 0.5 mg Documented By: JOSE Calcium Carbonate (Calcium Carbonate 750 Mg Tab.Chew) 750 mg PO Q4H PRN PRN Reason: Heartburn Clonazepam (Clonazepam 0.5 Mg Tablet) 0.25 mg PO DAILY [place] Last Admin: 04/12/25 08:06 Dose: 0.25 mg Documented By: DA Clonazepam (Clonazepam 0.5 Mg Tablet) 0.5 mg PO BEDTIME [place] Last Admin: 04/11/25 21:07 Dose: 0.5 mg Documented By: MAGGY Dextrose (Dextrose 50 % 25 Gm/50 Ml Syringe) 25 gm IVPUSH Q15M PRN; Protocol PRN Reason: per Hypoglycemia Standing Ord. Enoxaparin Sodium (Enoxaparin Sodium 40 Mg/0.4 Ml Syringe) 40 mg SUBCUT Q24H [place] Last Admin: 04/11/25 18:03 Dose: 40 mg Documented By: DA Glucose (Glucose Gel 15 Gm Gel..Gram.) 15 gm PO Q15M PRN; Protocol PRN Reason: per Hypoglycemia Standing Ord. Hydralazine HCl (Hydralazine Hcl 20 Mg/Ml Vial) 10 mg IVPUSH Q6H PRN; Protocol PRN Reason: SBP > 160 Last Admin: 04/11/25 16:51 Dose: 10 mg Documented By: DA Hydromorphone HCl (Hydromorphone Hcl 1 Mg/Ml Syringe) 1 mg IVPUSH Q3H PRN; Protocol PRN Reason: Pain, Severe (Pain Scale 7-10) Last Admin: 04/11/25 15:55 Dose: 1 mg Documented By: DA Methylprednisolone Sodium Succinate 20 mg/ Sodium Chloride 50 mls @ 50 mls/hr IV Q8H [place] Stop: 04/12/25 08:59 Last Infusion: 04/12/25 00:13 Dose: Infused Documented By: MAGGY Lactated Ringer's (Lr) 1,000 mls @ 100 mls/hr IVCONT .Q10H [facility] Last Admin: 04/12/25 03:41 Dose: 100 mls/hr Documented By: MAGGY Insulin Human Lispro (Insulin Lispro 100 Unit/Ml 3 Ml Vial) 0 unit SUBCUT Q6H [place]; Protocol Last Admin: 04/12/25 05:29 Dose: 4 unit Documented By: MAGGY Latanoprost (Latanoprost 0.005 % Ophth Franny 2.5 Ml Drops) 1 drop EYE-LEFT BEDTIME [facility] Last Admin: 04/11/25 21:07 Dose: 1 drop Documented By: MAGGY Magnesium Hydroxide (Milk Of Magnesia 30 Ml Oral.Susp) 30 ml PO DAILY PRN PRN Reason: Constipation Magnesium Oxide (Magnesium Oxide 400 Mg Tablet) 400 mg PO DAILY [facility] Last Admin: 04/12/25 08:06 Dose: 400 mg Documented By: DA Melatonin (Melatonin 3 Mg Tablet) 6 mg PO BEDTIME PRN PRN Reason: Insomnia Metoprolol Succinate (Metoprolol Succinate Er 50 Mg Tab.Er.24h) 50 mg PO DAILY [facility]; Protocol Last Admin: 04/12/25 08:06 Dose: 50 mg Documented By: DA Ondansetron HCl (Ondansetron Hcl 4 Mg/2 Ml Vial) 4 mg IVPUSH Q8H PRN PRN Reason: Nausea and Vomiting Pantoprazole Sodium (Pantoprazole Sodium 40 Mg/10 Ml Vial) 40 mg IVPUSH DAILY@0630 [facility] Last Admin: 04/12/25 05:31 Dose: 40 mg Documented By: MAGGY Sodium Chloride (0.9 % Sodium Chloride Flush 3 Ml Syringe) 3 ml IVFLUSH QSHIFT [facility] Last Admin: 04/12/25 08:10 Dose: Not Given Documented By: DA Non-Admin Reason: IV Running Timolol Maleate (Timolol Maleate 0.5 % Oph Franny 5 Ml Drbtl) 1 drop EYE-LEFT BID [facility] Last Admin: 04/11/25 21:07 Dose: 1 drop Documented By: MAGGY Venlafaxine HCl (Venlafaxine Hcl Er 75 Mg Cap.Er.24h) 75 mg PO DAILY [facility] Last Admin: 04/12/25 08:06 Dose: 75 mg Documented By: DA Venlafaxine HCl (Venlafaxine Hcl Er 150 Mg Cap.Er.24h) 150 mg PO BEDTIME [facility] Last Admin: 04/11/25 21:07 Dose: 150 mg Documented By: MAGGY Zolpidem Tartrate (Zolpidem Tartrate 5 Mg Tablet) 5 mg PO BEDTIME [facility] Last Admin: 04/11/25 21:07 Dose: 5 mg Documented By: MAGGY Labs 04/12/25 05:48 04/12/25 05:48 Labs: Laboratory Results - last 24 hr 04/11/25 04/11/25 04/11/25 12:26 16:07 22:39 MCV MCH MCHC RDW Plt Count MPV Immature Gran % (Auto) Neut % (Auto) Lymph % (Auto) [place] % (Auto) Eos % (Auto) Baso % (Auto) Lymph # (Auto) [place] # (Auto) Eos # (Auto) Baso # (Auto) Abs Immat Gran (auto) Absolute Neuts (auto) Absolute Nucleated RBC Nucleated RBC % (auto) Anion Gap Estim Creat Clear Calc Estimated GFR POC Glucose 137 H 122 H 171 H Random Glucose Calcium Phosphorus Magnesium Total Bilirubin AST ALT Alkaline Phosphatase Total Protein Albumin 04/12/25 04/12/25 04/12/25 05:16 05:48 05:48 MCV 82.9 MCH 28.3 MCHC 34.2 RDW 13.7 Plt Count 267 MPV 11.1 Immature Gran % (Auto) 0.5 H Neut % (Auto) 88.7 H Lymph % (Auto) 10.4 L [place] % (Auto) 0.3 L Eos % (Auto) 0.0 Baso % (Auto) 0.1 Lymph # (Auto) 0.8 L [place] # (Auto) 0.0 L Eos # (Auto) 0.0 Baso # (Auto) 0.0 Abs Immat Gran (auto) 0.04 H Absolute Neuts (auto) 6.5 Absolute Nucleated RBC 0.000 Nucleated RBC % (auto) 0.0 Anion Gap 13 14 Estim Creat Clear Calc 105.9 Estimated GFR POC Glucose 201 H Random Glucose Calcium Phosphorus Magnesium Total Bilirubin AST ALT Alkaline Phosphatase Total Protein Albumin 04/12/25 04/12/25 04/12/25 05:48 05:48 05:48 MCV MCH MCHC RDW Plt Count MPV Immature Gran % (Auto) Neut % (Auto) Lymph % (Auto) [place] % (Auto) Eos % (Auto) Baso % (Auto) Lymph # (Auto) [place] # (Auto) Eos # (Auto) Baso # (Auto) Abs Immat Gran (auto) Absolute Neuts (auto) Absolute Nucleated RBC Nucleated RBC % (auto) Anion Gap Estim Creat Clear Calc 110.5 Estimated GFR > 60 > 60 POC Glucose Random Glucose 187 H 187 H Calcium 9.3 Phosphorus Magnesium Total Bilirubin AST ALT Alkaline Phosphatase Total Protein Albumin 04/12/25 05:48 MCV MCH MCHC RDW Plt Count MPV Immature Gran % (Auto) Neut % (Auto) Lymph % (Auto) [place] % (Auto) Eos % (Auto) Baso % (Auto) Lymph # (Auto) [place] # (Auto) Eos # (Auto) Baso # (Auto) Abs Immat Gran (auto) Absolute Neuts (auto) Absolute Nucleated RBC Nucleated RBC % (auto) Anion Gap Estim Creat Clear Calc Estimated GFR POC Glucose Random Glucose Calcium 9.2 Phosphorus 3.9 Magnesium 1.7 Total Bilirubin 0.6 AST 21 ALT 11 Alkaline Phosphatase 127 H Total Protein 6.1 L Albumin 3.7 Procedures Date of Service Date of Service: 04/12/25 Progress Note: A&P Assessment and plan (1) Small bowel obstruction: Status: Acute (2) Crohn's disease of small intestine with intestinal obstruction: Status: Acute Plan Overall patient is improved in his now passing flatus and having a bowel movement. NG tube output is minimal overnight. We will do a clamping trial of the NG tube with possible removal if low residual. Patient expressed understanding and agrees with the plan. Time Spent With Patient Time: Total time managing care of this patient today ____ minutes. Quality Stroke Does the patient have a stroke diagnosis?: No Reason for No Anti-thrombotic by Day Two: Contraindicated VTE Prior VTE?: No VTE Risk Level:: Medical - moderate - high VTE Device Contraindication: N/A - Device Ordered VTE Drug Contraindication: N/A - Med Ordered
--- NOTE | 2025-04-12 09:05 | PC.NURSE ---
Patient threatening to pull out NG Tube and Leave AMA. notified.
[2025-04-12] MEDS: METHYLPREDNISOLONE SOD SUCC IV (09:10)
[2025-04-12] MEDS: SODIUM CHLORIDE 0.9% IV (09:10)
[2025-04-12] MEDS: timoloL maleate 0.5 % Oph Sol 5 ML DRBTL 1 DROP EYE-LEFT (09:12)
[2025-04-12] MEDS: Brimonidine Tartrate 0.2% Oph 5 ML BOTTLE 1 DROP EYE-LEFT (09:15)
--- NOTE | 2025-04-12 10:20 | HO.PM.IMPN ---
Subjective Subjective Date of Service: 04/12/25 Interval History: passed gas and had BM NGT clamped Review of Systems Review of Systems: Yes all other systems are reviewed and are negative Physical Exam Vital Signs: Vital Signs: Last Vital Signs Temp 97.8 F 04/12/25 08:00 Pulse 84 04/12/25 08:00 Resp 18 04/12/25 08:00 BP 160/80 H 04/12/25 08:00 Pulse Ox 95 04/12/25 08:00 O2 Del Method Room Air 04/12/25 08:00 O2 Flow Rate 2 04/12/25 03:30 BMI result Body Mass Index 33.2 Gen: in no acute distress HEENT: sclera anicteric, moist mucus membranes Neck: supple Lungs: clear to auscultation bilaterally Heart: regular rate and rhythm, no murmurs Abd: soft, non-tender, non-distended, active bowel sounds, NGT clamped Ext: no edema Skin: warm/well-perfused Neuro: alert and oriented x3, no focal findings Psych: appropriate affect Objective Data Active Medications Acetaminophen (Acetaminophen 325 Mg Tablet) 650 mg PO Q6H PRN PRN Reason: Pain, Mild 1-3,fever,headache Albuterol Sulfate (Albuterol Sulfate (0.083%) 2.5 Mg/3 Ml Vial.Neb) 2.5 mg INHALE Q4H PRN PRN Reason: shortness of breath or wheezing Albuterol Sulfate (Albuterol Sulfate 90 Mcg 8 Gm Inhaler) 2 puff INHALE Q4H PRN PRN Reason: for wheezing Albuterol/Ipratropium (Albuterol/Iprat 2.5/0.5mg 3 Ml Ampul.Neb) 3 ml INHALE Q4H PRN PRN Reason: Shortness of Breath/Wheezing Brimonidine Tartrate (Brimonidine Tartrate 0.2% Oph 5 Ml Bottle) 1 drop EYE-LEFT BID PRN PRN Reason: Eye Pressure Last Admin: 04/12/25 09:15 Dose: 1 drop Documented By: DA Budesonide (Budesonide 0.5 Mg/2 Ml Ampul.Neb) 0.5 mg INHALE RDAILY [facility] Last Admin: 04/12/25 07:29 Dose: 0.5 mg Documented By: JOSE Calcium Carbonate (Calcium Carbonate 750 Mg Tab.Chew) 750 mg PO Q4H PRN PRN Reason: Heartburn Clonazepam (Clonazepam 0.5 Mg Tablet) 0.25 mg PO DAILY [facility] Last Admin: 04/12/25 08:06 Dose: 0.25 mg Documented By: DA Clonazepam (Clonazepam 0.5 Mg Tablet) 0.5 mg PO BEDTIME [place] Last Admin: 04/11/25 21:07 Dose: 0.5 mg Documented By: MAGGY Dextrose (Dextrose 50 % 25 Gm/50 Ml Syringe) 25 gm IVPUSH Q15M PRN; Protocol PRN Reason: per Hypoglycemia Standing Ord. Enoxaparin Sodium (Enoxaparin Sodium 40 Mg/0.4 Ml Syringe) 40 mg SUBCUT Q24H [facility] Last Admin: 04/11/25 18:03 Dose: 40 mg Documented By: DA Glucose (Glucose Gel 15 Gm Gel..Gram.) 15 gm PO Q15M PRN; Protocol PRN Reason: per Hypoglycemia Standing Ord. Hydralazine HCl (Hydralazine Hcl 20 Mg/Ml Vial) 10 mg IVPUSH Q6H PRN; Protocol PRN Reason: SBP > 160 Last Admin: 04/11/25 16:51 Dose: 10 mg Documented By: DA Hydromorphone HCl (Hydromorphone Hcl 1 Mg/Ml Syringe) 1 mg IVPUSH Q3H PRN; Protocol PRN Reason: Pain, Severe (Pain Scale 7-10) Last Admin: 04/11/25 15:55 Dose: 1 mg Documented By: DA Lactated Ringer's (Lr) 1,000 mls @ 100 mls/hr IVCONT .Q10H [place] Last Admin: 04/12/25 03:41 Dose: 100 mls/hr Documented By: MAGGY Insulin Human Lispro (Insulin Lispro 100 Unit/Ml 3 Ml Vial) 0 unit SUBCUT Q6H [place]; Protocol Last Admin: 04/12/25 05:29 Dose: 4 unit Documented By: MAGGY Latanoprost (Latanoprost 0.005 % Ophth Franny 2.5 Ml Drops) 1 drop EYE-LEFT BEDTIME [facility] Last Admin: 04/11/25 21:07 Dose: 1 drop Documented By: MAGGY Magnesium Hydroxide (Milk Of Magnesia 30 Ml Oral.Susp) 30 ml PO DAILY PRN PRN Reason: Constipation Magnesium Oxide (Magnesium Oxide 400 Mg Tablet) 400 mg PO DAILY [facility] Last Admin: 04/12/25 08:06 Dose: 400 mg Documented By: DA Melatonin (Melatonin 3 Mg Tablet) 6 mg PO BEDTIME PRN PRN Reason: Insomnia Metoprolol Succinate (Metoprolol Succinate Er 50 Mg Tab.Er.24h) 50 mg PO DAILY [facility]; Protocol Last Admin: 04/12/25 08:06 Dose: 50 mg Documented By: DA Ondansetron HCl (Ondansetron Hcl 4 Mg/2 Ml Vial) 4 mg IVPUSH Q8H PRN PRN Reason: Nausea and Vomiting Pantoprazole Sodium (Pantoprazole Sodium 40 Mg/10 Ml Vial) 40 mg IVPUSH DAILY@0630 [facility] Last Admin: 04/12/25 05:31 Dose: 40 mg Documented By: MAGGY Sodium Chloride (0.9 % Sodium Chloride Flush 3 Ml Syringe) 3 ml IVFLUSH QSHIFT [facility] Last Admin: 04/12/25 08:10 Dose: Not Given Documented By: DA Non-Admin Reason: IV Running Timolol Maleate (Timolol Maleate 0.5 % Oph Franny 5 Ml Drbtl) 1 drop EYE-LEFT BID [facility] Last Admin: 04/12/25 09:12 Dose: 1 drop Documented By: DA Venlafaxine HCl (Venlafaxine Hcl Er 75 Mg Cap.Er.24h) 75 mg PO DAILY [facility] Last Admin: 04/12/25 08:06 Dose: 75 mg Documented By: DA Venlafaxine HCl (Venlafaxine Hcl Er 150 Mg Cap.Er.24h) 150 mg PO BEDTIME [facility] Last Admin: 04/11/25 21:07 Dose: 150 mg Documented By: MAGGY Zolpidem Tartrate (Zolpidem Tartrate 5 Mg Tablet) 5 mg PO BEDTIME [facility] Last Admin: 04/11/25 21:07 Dose: 5 mg Documented By: MAGGY Labs 04/12/25 05:48 04/12/25 05:48 Labs: Laboratory Results - last 24 hr 04/11/25 04/11/25 04/11/25 12:26 16:07 22:39 MCV MCH MCHC RDW Plt Count MPV Immature Gran % (Auto) Neut % (Auto) Lymph % (Auto) [place] % (Auto) Eos % (Auto) Baso % (Auto) Lymph # (Auto) [place] # (Auto) Eos # (Auto) Baso # (Auto) Abs Immat Gran (auto) Absolute Neuts (auto) Absolute Nucleated RBC Nucleated RBC % (auto) Anion Gap Estim Creat Clear Calc Estimated GFR POC Glucose 137 H 122 H 171 H Random Glucose Calcium Phosphorus Magnesium Total Bilirubin AST ALT Alkaline Phosphatase Total Protein Albumin 04/12/25 04/12/25 04/12/25 05:16 05:48 05:48 MCV 82.9 MCH 28.3 MCHC 34.2 RDW 13.7 Plt Count 267 MPV 11.1 Immature Gran % (Auto) 0.5 H Neut % (Auto) 88.7 H Lymph % (Auto) 10.4 L [place] % (Auto) 0.3 L Eos % (Auto) 0.0 Baso % (Auto) 0.1 Lymph # (Auto) 0.8 L [place] # (Auto) 0.0 L Eos # (Auto) 0.0 Baso # (Auto) 0.0 Abs Immat Gran (auto) 0.04 H Absolute Neuts (auto) 6.5 Absolute Nucleated RBC 0.000 Nucleated RBC % (auto) 0.0 Anion Gap 13 14 Estim Creat Clear Calc 105.9 Estimated GFR POC Glucose 201 H Random Glucose Calcium Phosphorus Magnesium Total Bilirubin AST ALT Alkaline Phosphatase Total Protein Albumin 04/12/25 04/12/25 04/12/25 05:48 05:48 05:48 MCV MCH MCHC RDW Plt Count MPV Immature Gran % (Auto) Neut % (Auto) Lymph % (Auto) [place] % (Auto) Eos % (Auto) Baso % (Auto) Lymph # (Auto) [place] # (Auto) Eos # (Auto) Baso # (Auto) Abs Immat Gran (auto) Absolute Neuts (auto) Absolute Nucleated RBC Nucleated RBC % (auto) Anion Gap Estim Creat Clear Calc 110.5 Estimated GFR > 60 > 60 POC Glucose Random Glucose 187 H 187 H Calcium 9.3 Phosphorus Magnesium Total Bilirubin AST ALT Alkaline Phosphatase Total Protein Albumin 04/12/25 05:48 MCV MCH MCHC RDW Plt Count MPV Immature Gran % (Auto) Neut % (Auto) Lymph % (Auto) [place] % (Auto) Eos % (Auto) Baso % (Auto) Lymph # (Auto) [place] # (Auto) Eos # (Auto) Baso # (Auto) Abs Immat Gran (auto) Absolute Neuts (auto) Absolute Nucleated RBC Nucleated RBC % (auto) Anion Gap Estim Creat Clear Calc Estimated GFR POC Glucose Random Glucose Calcium 9.2 Phosphorus 3.9 Magnesium 1.7 Total Bilirubin 0.6 AST 21 ALT 11 Alkaline Phosphatase 127 H Total Protein 6.1 L Albumin 3.7 Assessment and Plan (1) Small bowel obstruction: Status: Acute Plan d2 for 74yo M with hx Crohn's disease with history of SBO and off azathioprine for years, asthma/COPD overlap not on home O2, HTN, DM2, peripheral neuropathy, GERD, VIDA on CPAP, mood disorder; presenting with acute abdominal pain, distension, nausea, and vomiting and found to have SBO SBO associated with Crohn's disease - NGT clamped x4hr then remove then trial diet, Surg following, GI consulted and started IV methylprednisolone and will need outpatient follow-up mild hypoxia - due to atelectasis from abd distension; encourage IS; resolved asthma/COPD not in acute exacerbation - continue prn nebs/rescue inhaler DM2 - hold basal insulin while NPO, give correction-dose lispro HTN - continue metoprolol succinate mood disorder - continue venlafaxine + zolpidem + clonazepam glaucoma - continue timolol + latanoprost VTE prophylaxis - enoxaparin dispo - eventual home In my clinical judgment, the patient requires continued inpatient hospitalization for the following reasons: SBO Total time managing care of this patient today: 35 minutes. Quality Stroke Does the patient have a stroke diagnosis?: No Reason for No Anti-thrombotic by Day Two: Contraindicated VTE Prior VTE?: No VTE Risk Level:: Medical - moderate - high VTE Device Contraindication: N/A - Device Ordered VTE Drug Contraindication: N/A - Med Ordered
[2025-04-12 11:16] LABS: Glucose, Whole Blood 190 mg/dL (60-115)
--- NOTE | 2025-04-12 12:11 | PC.NURSE ---
N.G. tube clamped at 8am per surgical, for 4 hours. Tube hooked back to wall suction at 12noon, with no output. New order from Dr. Flores to d/c N.G. tube. Tube d/c'd at 12:10 pm . Pt tolerated well
--- NOTE | 2025-04-12 14:25 | P.PNGI_ITS ---
Subjective Subjective Date of Service: 04/12/25 Interval History: feels better ng out Critical Care Time (minutes): 0 Physical Exam 2 Vital Signs: Vital Signs: Last Vital Signs Temp 97.8 F 04/12/25 08:00 Pulse 84 04/12/25 08:00 Resp 18 04/12/25 08:00 BP 160/80 H 04/12/25 08:00 Pulse Ox 95 04/12/25 08:00 O2 Del Method Room Air 04/12/25 08:00 O2 Flow Rate 2 04/12/25 03:30 BMI result Body Mass Index 33.2 GI: Other: abdomen is soft and nontender Objective Data Labs 04/12/25 05:48 04/12/25 05:48 Labs: Laboratory Results - last 24 hr 04/11/25 04/11/25 04/12/25 16:07 22:39 05:16 WBC RBC Hgb Hct MCV MCH MCHC RDW Plt Count MPV Immature Gran % (Auto) Neut % (Auto) Lymph % (Auto) [place] % (Auto) Eos % (Auto) Baso % (Auto) Lymph # (Auto) [place] # (Auto) Eos # (Auto) Baso # (Auto) Abs Immat Gran (auto) Absolute Neuts (auto) Absolute Nucleated RBC Nucleated RBC % (auto) Sodium Potassium Chloride Carbon Dioxide Anion Gap BUN Creatinine Estim Creat Clear Calc Estimated GFR POC Glucose 122 H 171 H 201 H Random Glucose Calcium Phosphorus Magnesium Total Bilirubin AST ALT Alkaline Phosphatase Total Protein Albumin 04/12/25 04/12/25 04/12/25 05:48 05:48 05:48 WBC 7.3 RBC 5.19 Hgb 14.7 Hct 43.0 MCV 82.9 MCH 28.3 MCHC 34.2 RDW 13.7 Plt Count 267 MPV 11.1 Immature Gran % (Auto) 0.5 H Neut % (Auto) 88.7 H Lymph % (Auto) 10.4 L [place] % (Auto) 0.3 L Eos % (Auto) 0.0 Baso % (Auto) 0.1 Lymph # (Auto) 0.8 L [place] # (Auto) 0.0 L Eos # (Auto) 0.0 Baso # (Auto) 0.0 Abs Immat Gran (auto) 0.04 H Absolute Neuts (auto) 6.5 Absolute Nucleated RBC 0.000 Nucleated RBC % (auto) 0.0 Sodium 142 142 Potassium 3.9 3.6 Chloride 105 Carbon Dioxide Anion Gap BUN Creatinine Estim Creat Clear Calc Estimated GFR POC Glucose Random Glucose Calcium Phosphorus Magnesium Total Bilirubin AST ALT Alkaline Phosphatase Total Protein Albumin 04/12/25 04/12/25 04/12/25 05:48 05:48 05:48 WBC RBC Hgb Hct MCV MCH MCHC RDW Plt Count MPV Immature Gran % (Auto) Neut % (Auto) Lymph % (Auto) [place] % (Auto) Eos % (Auto) Baso % (Auto) Lymph # (Auto) [place] # (Auto) Eos # (Auto) Baso # (Auto) Abs Immat Gran (auto) Absolute Neuts (auto) Absolute Nucleated RBC Nucleated RBC % (auto) Sodium Potassium Chloride 106 Carbon Dioxide 28 26 Anion Gap 13 14 BUN 14 Creatinine Estim Creat Clear Calc Estimated GFR POC Glucose Random Glucose Calcium Phosphorus Magnesium Total Bilirubin AST ALT Alkaline Phosphatase Total Protein Albumin 04/12/25 04/12/25 04/12/25 05:48 05:48 05:48 WBC RBC Hgb Hct MCV MCH MCHC RDW Plt Count MPV Immature Gran % (Auto) Neut % (Auto) Lymph % (Auto) [place] % (Auto) Eos % (Auto) Baso % (Auto) Lymph # (Auto) [place] # (Auto) Eos # (Auto) Baso # (Auto) Abs Immat Gran (auto) Absolute Neuts (auto) Absolute Nucleated RBC Nucleated RBC % (auto) Sodium Potassium Chloride Carbon Dioxide Anion Gap BUN 13 Creatinine 0.72 0.69 Estim Creat Clear Calc 105.9 110.5 Estimated GFR > 60 POC Glucose Random Glucose Calcium Phosphorus Magnesium Total Bilirubin AST ALT Alkaline Phosphatase Total Protein Albumin 04/12/25 04/12/25 04/12/25 05:48 05:48 05:48 WBC RBC Hgb Hct MCV MCH MCHC RDW Plt Count MPV Immature Gran % (Auto) Neut % (Auto) Lymph % (Auto) [place] % (Auto) Eos % (Auto) Baso % (Auto) Lymph # (Auto) [place] # (Auto) Eos # (Auto) Baso # (Auto) Abs Immat Gran (auto) Absolute Neuts (auto) Absolute Nucleated RBC Nucleated RBC % (auto) Sodium Potassium Chloride Carbon Dioxide Anion Gap BUN Creatinine Estim Creat Clear Calc Estimated GFR > 60 POC Glucose Random Glucose 187 H 187 H Calcium 9.3 9.2 Phosphorus 3.9 Magnesium 1.7 Total Bilirubin 0.6 AST 21 ALT 11 Alkaline Phosphatase 127 H Total Protein 6.1 L Albumin 3.7 04/12/25 11:12 WBC RBC Hgb Hct MCV MCH MCHC RDW Plt Count MPV Immature Gran % (Auto) Neut % (Auto) Lymph % (Auto) [place] % (Auto) Eos % (Auto) Baso % (Auto) Lymph # (Auto) [place] # (Auto) Eos # (Auto) Baso # (Auto) Abs Immat Gran (auto) Absolute Neuts (auto) Absolute Nucleated RBC Nucleated RBC % (auto) Sodium Potassium Chloride Carbon Dioxide Anion Gap BUN Creatinine Estim Creat Clear Calc Estimated GFR POC Glucose 190 H Random Glucose Calcium Phosphorus Magnesium Total Bilirubin AST ALT Alkaline Phosphatase Total Protein Albumin Procedures Date of Service Date of Service: 04/12/25 Progress Note: A&P Assessment and plan (1) Crohn's disease of small intestine with intestinal obstruction: Status: Acute Assessment and Plan: doing well ok to d/c when diet tolerated suggest prednisone 40/d, taper by 10 mg weekly as outpt f/u in office in April Time Spent With Patient Time: Total time managing care of this patient today ____ minutes. Quality Stroke Does the patient have a stroke diagnosis?: No Reason for No Anti-thrombotic by Day Two: Contraindicated VTE Prior VTE?: No VTE Risk Level:: Medical - moderate - high VTE Device Contraindication: N/A - Device Ordered VTE Drug Contraindication: N/A - Med Ordered
--- NOTE | 2025-04-12 14:40 | P.DS_ITS ---
DS: Providers Provider Date of Service: 04/12/25 Date of admission: 04/11/25 05:20 Date of discharge: 04/12/25 Primary care physician: Hector Cherry MD Consults: 04/11/25 05:24 Consult to General Surgery Routine Consulting Provider: [facility] General Surgeons Reason for consultation: SBO Has provider been notified: Yes 04/11/25 10:26 Consult to Gastroenterology Routine Consulting Provider: Rahat Fuentes Reason for consultation: SBO crohns DS: Diagnosis Discharge Diagnosis (1) Crohn's disease of small intestine with intestinal obstruction: Status: Acute (2) Left against medical advice: Status: Acute DS: Summary Hospital Course Hospital Course: From the history and physical by the admitting hospitalist, Janis Hernandez, 04/11/25: Patient is a 74-year-old male with past medical history COPD, depression, glaucoma, GERD, VIDA, previous bowel obstruction 2 years ago resolved without surgery, hypertension, insulin-dependent diabetes not on GLP-1, presents to the emergency room with complaints of abdominal pain along with nausea and vomiting that started yesterday after eating a salad at dinner. Workup in the ED noted a CT scan identifying a small bowel obstruction with transition. Last BM was earlier yesterday and was normal. Pt denies diarrhea, but Nausea and abdominal pain are persisting. Pain is 8/10 after previous Dilaudid dose. Pt denies chest pain or SOB at rest. Pt has not smoked for over 30 years. Pt does not use oxygen at home. Pt denies aspiration or dysphagia issues. Pt denies pain with urination or hx of UTI. Emergency room provider spoke with General surgery and hospitalist was asked to admit. NG to low wall suction is now placed with over 300 ccs of bile like content extracted. Patient has received IV morphine then IV Dilaudid for pain management. Per pt, dilaudid more effective for contolling pain. Administering 1 g of IV acetaminophen. Patient has noted history of COPD in his presenting hypoxic on room air. Oxygen ordered. Chest x-ray initiated in the ED s/p NG placement. Indicates proper placement of NG tube and no pulmonary edema, pleural effusion, consolidation or opacity. Noted atelecatasis is present and due to abdominal pain, pt's respirations are somewhat shallow. Patient has a noted leukocytosis 12.4, and lactate is 0.9. No evidence of fever but pt did report chills earlier. UA also ordered. Reviewed initiation of ABX with attending Dr Lenz, will hold off until UA is back. 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 He was admitted to the medical-surgical unit with NG tube placed to suction. General Surgery and Gastroenterology were consulted. He received IV methylprednisolone. Bowel function returned and NG tube was clamped, then removed. Diet advanced to clears. He did not wish to stay in the hospital to see if he would tolerate solids. He signed out against medical advice. He was advised to follow up with his high speed warper tender, Dr Rahat Fuentes. Time Attestation Discharge Coordination Time (in mins): 35 Quality: Safe Use of Opioids Does Pt have an Active Cancer Diagnosis on the Problem List?: No Quality: Stroke Does the patient have a stroke diagnosis?: No Physical Exam Vital Signs: Vital Signs: Last Vital Signs Temp 97.8 F 04/12/25 08:00 Pulse 84 04/12/25 08:00 Resp 18 04/12/25 08:00 BP 160/80 H 04/12/25 08:00 Pulse Ox 95 04/12/25 08:00 O2 Del Method Room Air 04/12/25 08:00 O2 Flow Rate 2 04/12/25 03:30 BMI result Body Mass Index 33.2 Gen: in no acute distress HEENT: sclera anicteric, moist mucus membranes Neck: supple Lungs: clear to auscultation bilaterally Heart: regular rate and rhythm, no murmurs Abd: soft, non-tender, non-distended Ext: no edema Skin: warm/well-perfused Neuro: alert and oriented x3, no focal findings Psych: appropriate affect DS: Data Data Completed and Pending Completed studies during hospitalization [Text1]: Laboratory Results WBC 7.3 X10*3/uL (4.8-10.8) 04/12/25 05:48 RBC 5.19 X10*6/uL (4.60-5.80) 04/12/25 05:48 Hgb 14.7 g/dl (14.0-18.0) 04/12/25 05:48 Hct 43.0 % (42.0-52.0) 04/12/25 05:48 MCV 82.9 fL (80.0-98.0) 04/12/25 05:48 MCH 28.3 pg (27.0-33.0) 04/12/25 05:48 MCHC 34.2 g/dl (31.0-36.0) 04/12/25 05:48 RDW 13.7 % (11.0-16.0) 04/12/25 05:48 Plt Count 267 X10*3/uL (160-400) 04/12/25 05:48 MPV 11.1 fL (9.4-12.4) 04/12/25 05:48 Immature Gran % (Auto) 0.5 % (0.0-0.4) H 04/12/25 05:48 Neut % (Auto) 88.7 % (45-73) H 04/12/25 05:48 Lymph % (Auto) 10.4 % (20-40) L 04/12/25 05:48 [place] % (Auto) 0.3 % (2-11) L 04/12/25 05:48 Eos % (Auto) 0.0 % (0-4) 04/12/25 05:48 Baso % (Auto) 0.1 % (0-2) 04/12/25 05:48 Lymph # (Auto) 0.8 X10*3/uL (1.2-4.9) L 04/12/25 05:48 [place] # (Auto) 0.0 X10*3/uL (0.1-1.2) L 04/12/25 05:48 Eos # (Auto) 0.0 X10*3/uL (0.0-0.4) 04/12/25 05:48 Baso # (Auto) 0.0 X10*3/uL (0.0-0.2) 04/12/25 05:48 Abs Immat Gran (auto) 0.04 X10*3/uL (0.00-0.03) H 04/12/25 05:48 Absolute Neuts (auto) 6.5 x10*3/uL (2.0-8.3) 04/12/25 05:48 Absolute Nucleated RBC 0.000 X10*3/uL (0.0-0.012) 04/12/25 05:48 Nucleated RBC % (auto) 0.0 /100WBC (0.0-0.2) 04/12/25 05:48 VBG pH 7.53 (7.32-7.43) H 04/11/25 06:24 VBG pCO2 34 mmHg 04/11/25 06:24 VBG pO2 89 mmHg 04/11/25 06:24 VBG HCO3 29 mmol/L (22-26) H 04/11/25 06:24 VBG O2 Saturation 98.0 % 04/11/25 06:24 VBG Base Excess 7.0 mmol/L 04/11/25 06:24 Sodium 142 mmol/L (135-145) 04/12/25 05:48 Sodium 142 mmol/L (135-145) 04/12/25 05:48 Potassium 3.6 mmol/L (3.3-5.1) 04/12/25 05:48 Potassium 3.9 mmol/L (3.3-5.1) 04/12/25 05:48 Chloride 105 mmol/L (96-108) 04/12/25 05:48 Chloride 106 mmol/L (96-108) 04/12/25 05:48 Carbon Dioxide 26 mmol/L (22-29) 04/12/25 05:48 Carbon Dioxide 28 mmol/L (22-29) 04/12/25 05:48 Anion Gap 13 (12-20) 04/12/25 05:48 Anion Gap 14 (12-20) 04/12/25 05:48 BUN 13 mg/dL (9-16) 04/12/25 05:48 BUN 14 mg/dL (9-16) 04/12/25 05:48 Creatinine 0.69 mg/dL (0.5-1.4) 04/12/25 05:48 Creatinine 0.72 mg/dL (0.5-1.4) 04/12/25 05:48 Estim Creat Clear Calc 105.9 04/12/25 05:48 Estim Creat Clear Calc 110.5 04/12/25 05:48 Estimated GFR > 60 04/12/25 05:48 Estimated GFR > 60 04/12/25 05:48 POC Glucose 190 mg/dL (60-115) H 04/12/25 11:12 Random Glucose 187 mg/dL (60-115) H 04/12/25 05:48 Random Glucose 187 mg/dL (60-115) H 04/12/25 05:48 Lactic Acid 0.9 mmol/L (0.5-2.0) 04/11/25 05:09 Calcium 9.2 mg/dL (8.4-10.2) 04/12/25 05:48 Calcium 9.3 mg/dL (8.4-10.2) 04/12/25 05:48 Phosphorus 3.9 mg/dL (2.7-4.5) 04/12/25 05:48 Magnesium 1.7 mg/dL (1.6-2.6) 04/12/25 05:48 Total Bilirubin 0.6 mg/dL (0.0-1.0) 04/12/25 05:48 AST 21 U/L (5-37) 04/12/25 05:48 ALT 11 U/L (0-40) 04/12/25 05:48 Alkaline Phosphatase 127 U/L (39-117) H 04/12/25 05:48 C-Reactive Protein 0.64 mg/dL (< or = 0.50) H 04/11/25 02:22 Total Protein 6.1 g/dL (6.5-8.0) L 04/12/25 05:48 Albumin 3.7 g/dL (3.5-5.0) 04/12/25 05:48 Discharge Plan Discharge Anticipated Discharge Date/Time: 04/12/25 14:33 Patient Disposition: Left Against Medical Advice Discharge Diagnosis: small bowel obstruction Crohn's disease left against medical advice Referrals: Rahat Fuentes MD [Physician] - 2 Weeks Hector Cherry MD [Primary Care Provider] - 1 Week Discharge Medications: Continued (DME) insulin syringe,safety needle 0.3 mL 29 x 1/2 syringe See Rx Instructions .Route Qty: 100 0RF Rx Instructions: As directed (DME) Comfort EZ Pen [place] 32 gauge x 5/16 needle See Rx Instructions .Route Qty: 100 0RF Rx Instructions: Use 3 times daily with insulin albuterol sulfate 2.5 mg /3 mL (0.083 %) solution for nebulization 2.5 mg inhalation Q4H PRN (Reason: shortness of breath or wheezing) Qty: 90 3RF metoprolol succinate 50 mg tablet extended release 24 hr 50 mg PO DAILY Qty: 90 1RF pantoprazole 20 mg tablet,delayed release (DR/EC) 20 mg PO DAILY@0630 Qty: 90 1RF zolpidem 5 mg tablet 5 mg PO BEDTIME Qty: 30 2RF albuterol sulfate 90 mcg/actuation HFA aerosol inhaler 2 puff inhalation Q4H PRN (Reason: for wheezing) timolol maleate 0.5 % drops 1 drp ophthalmic-Left BID clonazepam [Klonopin] 0.5 mg tablet 0.25 mg PO DAILY venlafaxine [Effexor XR] 75 mg capsule,extended release 24hr 75 mg PO DAILY clonazepam [Klonopin] 0.5 mg tablet 0.5 mg PO BEDTIME Rx Instructions: take 1/2 tab every am and 1 tab daily at bedtime orally; magnesium oxide 400 mg magnesium Tablet 400 mg PO DAILY insulin lispro [Humalog KwikPen Insulin] 100 unit/mL insulin pen 15 unit subcut TIDAC PRN (Reason: Blood Sugar Levels) latanoprost 0.005 % drops 1 drp ophthalmic-Left BEDTIME brimonidine 0.2 % drops 1 drp ophthalmic-Left BID PRN (Reason: Eye Pressure) budesonide 0.5 mg/2 mL suspension for nebulization 0.5 mg inhalation DAILY Qty: 120 4RF venlafaxine [Effexor XR] 150 mg capsule,extended release 24hr 150 mg PO BEDTIME Qty: 30 1RF Discharge Orders: Discharge Order (Routine); Ordered 04/12/25 Ordered By: Tram Moore Diet: Advance to usual diet Activity on Discharge: As tolerated Stand Alone Forms: Patient Portal Discharge page Print Language: Mauritanian Care Plan Goals: GI health Health Concerns: small bowel obstruction Crohn's disease left against medical advice Plan of Treatment: return to the hospital as soon as you would like to resume appropriate medical care follow up with Dr Fuentes for care of Crohn's disease Assessment: See Discharge Summary.
--- NOTE | 2025-04-12 14:40 | PC.NURSE ---
Pt had N.G. tube removed at 12:10PM. Diet increased to clear liquids, which pt tolerated. M.D. increased diet to regular. Pt refused to wait for supper to discharge. Refused to eat sandwich from refrigerator on unit. Fernando notified and aware that pt signing out AMA. IV and telemetry removed. Pt signed AMA form and left ambulatory with .
--- NOTE | 2025-04-12 14:52 | MHC.CM.PN ---
Addendum entered by Anna Iverson RN 04/12/25 14:52: *correction: Patient left AMA Original Note: Patient dc'd home self care via private transport prior to CM assessment.
== END 2025-04-12 14:44 | disposition left against medical advice (07) | DRG 386 ==
LOC: HO.ED 03:15 → HO.EDOVER 06:16 → HO.S3 10:36
PROVIDERS: Nurse Practitioner Family; Admitting Provider Student in an Organized Health Care Education/Training Program; Emergency Provider Internal Medicine; PCP Internal Medicine; Visit Provider Family Medicine
DX: K50.012 Crohn's disease of small intestine with intestinal obstruction (principal); J98.11 Atelectasis; E11.42 Type 2 diabetes mellitus with diabetic polyneuropathy; I10 Essential (primary) hypertension; F39 Unspecified mood [affective] disorder; H40.9 Unspecified glaucoma; Z87.891 Personal history of nicotine dependence; Z79.4 Long term (current) use of insulin; Z79.899 Other long term (current) drug therapy
CPT/HCPCS: 36415; 71045; 74176; 80048; 80053; 82803; 82947; 83605; 83735; 84100; 85025; 86140; 93005; 94640; 99285; J0131; J0360; J1171; J1650; J2270; J2405; J2470; J2919; J7120

== ENCOUNTER → 2025-04-11 02:42 | Outpatient (BNV) | payer MEDICARE, SELFPAY | PROVIDERS: Emergency Provider Internal Medicine; PCP Internal Medicine; Visit Provider Radiology Diagnostic Radiology | DX: K56.41 Fecal impaction (principal); Z93.1 Gastrostomy status | CPT/HCPCS: 71045; 74176 ==

== ENCOUNTER 2025-04-11 05:20 | Outpatient (BNV) | payer MEDICARE, SELFPAY | END 2025-04-11 06:13 | PROVIDERS: Admitting Provider Student in an Organized Health Care Education/Training Program; Emergency Provider Internal Medicine; PCP Internal Medicine; Visit Provider Internal Medicine Cardiovascular Disease | DX: R94.31 Abnormal electrocardiogram [ECG] [EKG] (principal); I10 Essential (primary) hypertension | CPT/HCPCS: 93010 ==

== ENCOUNTER → 2025-04-11 05:20 | Outpatient (BNV) | payer MEDICARE, SELFPAY | PROVIDERS: Admitting Provider Student in an Organized Health Care Education/Training Program; Emergency Provider Internal Medicine; PCP Internal Medicine | DX: K56.609 Unspecified intestinal obstruction, unspecified as to partial versus complete obstruction (principal); K50.012 Crohn's disease of small intestine with intestinal obstruction | CPT/HCPCS: 99222; 99232 ==

== ENCOUNTER → 2025-04-11 05:20 | Outpatient (BNV) | payer MEDICARE, SELFPAY | PROVIDERS: Admitting Provider Student in an Organized Health Care Education/Training Program; Emergency Provider Internal Medicine; PCP Internal Medicine; Visit Provider Nurse Practitioner Family | DX: K50.012 Crohn's disease of small intestine with intestinal obstruction (principal); Z53.29 Procedure and treatment not carried out because of patient's decision for other reasons; K56.609 Unspecified intestinal obstruction, unspecified as to partial versus complete obstruction | CPT/HCPCS: 99239; 99499 ==

== ENCOUNTER 2025-05-16 13:19 | Outpatient (AMB) | payer MEDICARE, SELFPAY ==
[2025-05-16 13:26] VITALS: BP 188/88; PULSE 69; O2SAT 94; BMI 31.3
--- NOTE | 2025-05-16 13:26 | A.OFFVIS_ITS ---
Vital Signs 05/16/25 13:26 Height 5 ft 9 in Weight 211 lb 10.3 oz BMI 31.3 BP 188/88 H Blood Pressure Location Lt brachial Position Sitting Pulse 69 Pulse Source Pulse Oximeter Pulse Oximetry (%) 94 Oxygen Delivery Method Room Air Intake Visit Reasons: COPD Intake Note: pt is here for follow up of VIDA/copd. breathing is good, no issues today. 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: No Allergies hydrocortisone (HYDROCORTISONE) Allergy (Severe, Verified 05/16/25 13:38) SWELLING NSAIDS (Non-Steroidal Anti-Inflamma (NSAIDS (NON-STEROIDAL ANTI-INFLAMMA) Allergy (Severe, Verified 05/16/25 13:38) BLEEDING aspirin Allergy (Unknown, Verified 05/16/25 13:38) bleeding doxycycline Adverse Reaction (Severe, Verified 05/16/25 13:38) in-effective Medication List - Last Reconciled 05/16/25 by Pepe Rojas MD albuterol sulfate 90 mcg/actuation 2 puffs inhalation Q4H PRN albuterol sulfate 2.5 mg (3 mL) inhalation Q4H PRN brimonidine 0.2% 1 drp ophthalmic-Left BID PRN budesonide 0.5 mg (2 mL) inhalation DAILY clonazepam (Klonopin) 0.25 mg PO DAILY clonazepam (Klonopin) 0.5 mg PO BEDTIME insulin lispro (Humalog KwikPen (U-100) Insulin) 15 units (0.15 mL) subcut TIDAC 90 days insulin syringe,safety needle As directed latanoprost 0.005% 1 drp ophthalmic-Left BEDTIME magnesium oxide 400 mg PO DAILY metoprolol succinate ER 50 mg PO DAILY pantoprazole 20 mg PO DAILY@0630 pen needle, diabetic (Comfort EZ Pen [place]) Use 3 times daily with insulin timolol maleate 0.5% 1 drp ophthalmic-Left BID venlafaxine ER (Effexor XR) 75 mg PO DAILY venlafaxine ER (Effexor XR) 150 mg PO BEDTIME zolpidem 5 mg PO BEDTIME Do you need a note to return to daycare/school/sports/work: No HPI HPI COPD: Details: 74 years old gentleman is here for follow-up. Breathing is good and stable. He was admitted to the hospital last month but that was related to his Crohn's disease. Has very little cough and gets short of breath only on exertion like walking fast. Uses CPAP regularly and sleeps good. He is eating well and maintaining his regular weight. [facility]LY [facility] Medical History Left against medical advice SIMON (dyspnea on exertion) Shortness of breath Pedal edema Chest pain in adult Class 2 severe obesity with body mass index (BMI) of 35 to 39.9 with serious comorbidity Bilateral primary osteoarthritis of knee Osteoarthritis of right knee Diabetes mellitus type 2, uncontrolled COPD exacerbation Arthritis of both knees Chronic pain syndrome Allergic rhinitis VIDA on CPAP COPD (chronic obstructive pulmonary disease) Lumbar radiculopathy Allergic rhinitis Asthma Benign prostatic hyperplasia Back pain Sleep apnea HTN (hypertension) Lumbar spondylosis Tendon tear Depression Arthritis Asthma Crohn disease Surgical History H/O colonoscopy Family History Father No problems noted. Mother No problems noted. Social History Household Members: Family Housing: House Do you presently have visiting nurse or other home services: No Alcohol intake: never Comment: pain 3-4 left knee and buttock Patient Tobacco Use Status: Former Tobacco user e-Cigarette/Vaping Use: Never Used Second Hand Smoke Exposure: Yes Advance Directives Date on File: 07/07/24 service: No Current occupational status: retired Cognitive needs: Yes (cane) Hearing needs: No Vision needs: Yes (Glasses) Review of Systems Const All systems reviewed & are unremarkable except as noted in HPI and below Eyes Reports no additional complaints ENT Reports nasal congestion and Reports nasal discharge (Postnasal discharge off and on) Card Denies chest pain, Denies irregular heart rhythm and Denies dyspnea on exertion Resp Reports as per HPI, Denies dyspnea on exertion and Reports other (Complains of lot of pain over the left mid chest due to fall yesterday) GI Reports heartburn (Symptoms of GERD or controlled) Reports no additional complaints Musc Reports back pain, Reports myalgias and Reports arthralgias Skin/Breast Reports system reviewed and no additional complaints, except as documented Neuro Reports no additional complaints Psych Reports no additional complaints Physical Exam Vital Signs: Last Vital Signs Pulse 69 05/16/25 13:26 BP 188/88 H 05/16/25 13:26 Pulse Ox 94 05/16/25 13:26 Oxygen Delivery Method Room Air 05/16/25 13:26 BMI result Body Mass Index 31.3 Const Other: HE LOOKS OVERWEIGHT, TIRED AND SOMEWHAT DEPRESSED. General: comfortable, no acute distress, alert and awake Orientation/consciousness: patient oriented x3 HEENT Head: Yes normal to inspection General nose exam: No nasal polyps present and No nasal discharge present Face and sinus: Yes sinuses nontender Mouth: oropharynx normal Throat: Yes posterior oropharynx normal Eyes General: appearance normal, both eyes and all related structures Neck Neck: Yes normal visual inspection, Yes no lymphadenopathy, Yes trachea midline and Yes no JVD Thyroid: Thyroid normal Chest Chest palpation & inspection: normal inspection of the chest, normal palpation of entire chest wall and no tenderness Resp Other: PERCUSSION NOTE RESONANT, BREATH SOUNDS ARE VERY DISTANT, WITH PROLONGED EXPIRATORY PHASE. NO WHEEZES OR CREPITATIONS ARE HEARD TODAY. Cardio Palpation: normal PMI Rate: regular rate Rhythm: regular rhythm Heart sounds: no gallops and no murmurs GI Palpation (GI): Soft to palpation, nontender, No hepatosplenomegaly present, no masses and Other GI palpation findings present (ABDOMEN IS MODERATELY PROTUBERANT) Auscultation: normal bowel sounds Back/Spine/Pelvis Thoracic/Lumbar Spine: thoracic and lumbar spine normal to inspection, thoraco- lumbar ROM limited and thoraco-lumbar spasm Skin General skin exam: no rashes or lesions noted Neuro General: patient oriented x3 and no focal motor deficits Cranial nerves: Yes CN's II-XII intact bilaterally Extrem General: Yes normal to inspection, No no joint enlargement (BOTH KNEES ARE SLIGHTLY ENLARGED AND PAINFUL), Yes no clubbing, cyanosis or edema, Yes no calf tenderness and Yes normal gait (NEEDS A CANE) Psych Appearance: grossly normal Speech and movement: Normal speech and movement present Assessment & Plan Assessment & Plan (1) COPD (chronic obstructive pulmonary disease): Comment: THIS GENTLEMAN HAS CHRONIC, MODERATELY SEVERE, ASTHMA/COPD OVERLAP SYNDROME. HE IS STABLE AT THIS TIME BUT HE GETS SHORT OF BREATH ON MODERATE EXERTION, Code(s): J44.9 - Chronic obstructive pulmonary disease, unspecified Category: Medical Plan: ADVISED TO CONTINUE THE PRESENT REGIMEN WHICH INCLUDES ; ALBUTEROL INHALATION SOLUTION IN THE NEBULIZER Q 4-6 HOURS ONLY P.R.N.. OR ALBUTEROL HFA 2 PUFFS Q.4-6 HOURS P.R.N. WHEN OUTDOORS. BUDESONIDE 0.5 MG IN THE NEBULIZER B.I.D.. (2) VDIA on CPAP: Comment: THIS GENTLEMAN HAS OBSTRUCTIVE SLEEP APNEA FOR MANY YEARS, HAS BEEN USING HIS CPAP VERY. REGULARLY AT NIGHT HE IS VERY HAPPY WITH HIS NEW CPAP MACHINE AND HAS NO ISSUES WITH THE MASK. Code(s): G47.33 - Obstructive sleep apnea (adult) (pediatric); Z99.89 - Dependence on other enabling machines and devices Category: Medical Plan: CONTINUE TO USE CPAP EVERY NIGHT REGULARLY (3) Allergic rhinitis: Comment: He has chronic allergic rhinitis, remains controlled with p.r.n. use of loratadine. Code(s): J30.9 - Allergic rhinitis, unspecified Category: Medical Plan: LORATADINE 10 MG ONCE A DAY P.R.N. Coding Level of Care Code Est Pt Level 3 (15694) Diagnoses COPD (chronic obstructive pulmonary disease) J44.9 VIDA on CPAP G47.33; Z99.89 Allergic rhinitis J30.9
== END 2025-05-16 13:39 | disposition home or self-care (01) ==
LOC: HO.HPS 13:20
PROVIDERS: PCP Internal Medicine; Visit Provider Internal Medicine
DX: J44.9 Chronic obstructive pulmonary disease, unspecified (principal); G47.33 Obstructive sleep apnea (adult) (pediatric); Z99.89 Dependence on other enabling machines and devices; J30.9 Allergic rhinitis, unspecified
CPT/HCPCS: 99213

== ENCOUNTER → 2025-05-16 13:19 | Outpatient (BNVA) | payer MEDICARE, SELFPAY | PROVIDERS: PCP Internal Medicine; Visit Provider Internal Medicine | DX: J44.89 Other specified chronic obstructive pulmonary disease (principal); J45.998 Other asthma; G47.33 Obstructive sleep apnea (adult) (pediatric); J30.9 Allergic rhinitis, unspecified; Z79.899 Other long term (current) drug therapy; Z99.89 Dependence on other enabling machines and devices | CPT/HCPCS: 99212 ==

== ENCOUNTER → 2025-07-09 16:05 | Outpatient (BNV) | payer MEDICARE, SELFPAY | PROVIDERS: PCP Internal Medicine; Visit Provider Radiology Vascular & Interventional Radiology | DX: S20.20XA Contusion of thorax, unspecified, initial encounter (principal); M25.531 Pain in right wrist; W01.0XXA Fall on same level from slipping, tripping and stumbling without subsequent striking against object, initial encounter | CPT/HCPCS: 71101; 73110 ==

== ENCOUNTER 2025-07-09 16:18 | Emergency (ER) | payer MEDICARE, SELFPAY ==
--- NOTE | ~2025-07-09 | XR_ITS ---
CLINICAL HISTORY: FALL 4 view, chest and left ribs Comparison: CR - XR CHEST 1V - 04/11/25 05:23 EDT Findings: Lungs are clear with no pneumothorax or effusion. Cardiac and mediastinal contours are within normal limits. No displaced rib fracture identified. Impression: No acute process identified. This document has been electronically signed by: Celestine Lopez MD on 07/09/2025 18:28:14
--- NOTE | ~2025-07-09 | XR_ITS ---
CLINICAL HISTORY: FALL 3 view right wrist Comparison: None provided Findings: No fractures or dislocations. No significant arthritic change or erosions. No radiopaque foreign body. IMPRESSION: 1. No acute findings This document has been electronically signed by: Celestine Lopez MD on 07/09/2025 18:42:50
[2025-07-09 16:40] VITALS: BP 210/95; PULSE 68; RESP 18; TEMP 37.2; O2SAT 97; BMI 28.7
[2025-07-09 20:23] VITALS: BP 174/90; PULSE 69; RESP 18; TEMP 36.5; O2SAT 97
--- OUTSIDE RECORDS SUMMARY | 2025-07-09 20:35 | XMS_ITS | Clinical Summary ---
Author Organization [facility] Address [address] [place] [address] Phone Care Team Providers Care Car Jockey Name Role Phone Physician, No Pcp Primary Care Provider Unavaila ble Allergies Active Allergy Reactions Criticality Noted Date Comments Nsaids (Non-Steroidal Anti-I nflammatory Drug) Unknown 11/12/2024 Medications No known medications Active Problems No known active problems Social History Tobacco Use Types Packs/Day Years Used Date Smoking Tobacco: Never Assessed Sex and Gender Information Value Date Recorded Sex Assigned at Not on file Legal Sex Male 11:23 AM EST Gender Identity Not on file Sexual Orientation Not on file Obstetrics History Last Filed Vital Signs Vital Sign Reading Time Taken Comments Blood Pressure 172/98 11/12/2024 9:06 PM EST Pulse 91 11/12/2024 9:06 PM EST Temperature 36.6 C (97.9 F) 11/12/2024 4:25 PM EST Respiratory Rate 18 11/12/2024 4:25 PM EST Oxygen Saturation 93% 11/12/2024 4:25 PM EST Inhaled Oxygen Concentration - - Weight 97.5 kg (215 lb) 11/12/2024 11:48 AM EST Height 172.7 cm (5' 8 ) 11/12/2024 11:48 AM EST Body Mass Index 32.69 11/12/2024 11:48 AM EST Plan of Treatment Upcoming Encounters Date Type Department Care Team (Late st Contact Info) Description 08/26/2025 2:30 PM EDT Office Visit Vascular Surgery - [place] [address] [place] [address] Bari Goins MD [address] [place] [phone] Health Maintenance Due Date Last Done Comments DTaP,Tdap,and Td Vaccines (1 - Tdap) 1969 Pneumococcal Vaccine: 50+ Ye ars (1 of 1 - PCV) 2000 Zoster Vaccines (1 of 2) 2000 Depression Screening 10/31/2024 Abdominal Aortic Aneurysm (A AA) Screen 11/12/2024 Cholesterol Screening (Lipid Panel) 11/12/2024 Colorectal Cancer Screening: Colonoscopy 11/12/2024 Falls Risk Assessment 11/12/2024 Hepatitis C Screening 11/12/2024 Medicare Annual Wellness Visit 11/12/2024 Social Influencers of Health Screening 11/12/2024 COVID-19 Vaccine (1 - 2023-2 5 season) 2025 Influenza Vaccine (#1) 2025 RSV Immunization Adult Patie nts (1 - 1-dose 75+ series) 2025 HIB Vaccines Aged Out No longer eligi ble based on patient's age to complete this topic HPV Vaccines Aged Out No longer eligi ble based on patient's age to complete this topic Hepatitis A Vaccines Aged Out No long er eligible based on patient's age to complete this topic Hepatitis B Vaccines Aged Out No long er eligible based on patient's age to complete this topic IPV Vaccines Aged Out No longer eligi ble based on patient's age to complete this topic MMR Vaccines Aged Out No longer eligi ble based on patient's age to complete this topic Meningococcal ACWY Vaccine Aged Out N o longer eligible based on patient's age to complete this topic Meningococcal B Vaccine Aged Out No l onger eligible based on patient's age to complete this topic RSV Immunization Patients Un gely 20 months Aged Out No longer eligible b ased on patient's age to complete this topic Varicella Vaccines Aged Out No longer eligible based on patient's age to complete this topic Insurance [employer] MEDICARE Care Teams Car Jockey Relationship Specialty Start Date End Date Physician, No Pcp PCP - General 11/12/24
--- NOTE | 2025-07-09 20:42 | ED.GENADULT ---
HPI - General Adult General Chief complaint: Fall Stated complaint: Fall a few days ago, bruising on chest Time Seen by Provider: 07/09/25 20:29 Source: patient Limitations: no limitations History of Present Illness ED Provider: Kay Delacruz PA-C HPI narrative: 74-year-old male with a history of chronic pain, asthma, anxiety and depression, obesity, arthritis, diabetes, COPD, underlying cognitive disorder, VIDA on CPAP, BPH, who presents after fall. Patient states while walking he tripped and fell, landing on his left side. He now complains of right wrist and left lateral rib pain. There was no head strike, no loss consciousness. The patient does not use a blood thinner. In addition, patient has a painful rash that spans from the left side of the chest wraps around to the mid back on the left side, does not cross the midline. He has had the rash for 2 days. Related Data Home Medications ?Medication ?Instructions ?Recorded ?Confirmed latanoprost 0.005 % eye drops 1 drp ophthalmic-Left BEDTIME 11/17/21 04/11/25 brimonidine 0.2 % eye drops 1 drp ophthalmic-Left BID PRN Eye 05/18/23 04/11/25 Pressure albuterol sulfate 90 mcg/actuation 2 puff inhalation Q4H PRN for 06/19/24 04/11/25 aerosol inhaler wheezing timolol maleate 0.5 % eye drops 1 drp ophthalmic-Left BID 06/24/24 04/11/25 magnesium oxide 400 mg PO DAILY 04/11/25 04/11/25 Previous Rx's ?Medication ?Instructions ?Recorded insulin syringe,safety needle 0.3 #100 ea 09/28/ mL 29 gauge x 1/2 pen needle, diabetic 32 gauge x #100 ea 04/09/22 5/16 (Comfort EZ Pen [place]) albuterol sulfate 2.5 mg/3 mL 2.5 mg (3 mL) inhalation Q4H PRN 10/29/24 (0.083 %) solution for nebulization shortness of breath or wheezing #90 mL budesonide 0.5 mg/2 mL suspension 0.5 mg (2 mL) inhalation DAILY 12/13/24 for nebulization ASTHMA/COPD #120 mL metoprolol succinate 50 mg 50 mg PO DAILY #90 tabs 01/22/25 tablet,extended release 24 hr pantoprazole 20 mg tablet,delayed 20 mg PO DAILY@0630 #90 tabs 01/22/25 release insulin lispro 100 unit/mL 15 unit (0.15 mL) subcut TIDAC 04/24/25 subcutaneous pen (Humalog KwikPen Blood Sugar Levels 90 days #40.5 mL (U-100) Insulin) clonazepam 0.5 mg tablet (Klonopin) 0.5 mg PO BEDTIME #45 tabs 06/19/25 venlafaxine 150 mg 150 mg PO BEDTIME #90 caps 06/19/25 capsule,extended release 24 hr (Effexor XR) venlafaxine 75 mg capsule,extended 75 mg PO DAILY #90 caps 06/19/25 release 24 hr (Effexor XR) zolpidem 5 mg tablet 5 mg PO BEDTIME #30 tabs 06/19/25 oxycodone 5 mg tablet 5 mg PO Q8H PRN pain, moderate #12 07/09/25 tabs valacyclovir 1 gram tablet 1,000 mg PO Q8H #20 tabs 07/09/25 Allergies Allergy/AdvReac Type Severity Reaction Status Date / Time hydrocortisone Allergy Severe SWELLING Verified 07/09/25 16:44 (HYDROCORTISONE) NSAIDS (Non-Steroidal Allergy Severe BLEEDING Verified 07/09/25 16:44 Anti-Inflamma (NSAIDS (NON-STEROIDAL ANTI-INFLAMMA) aspirin Allergy Unknown bleeding Verified 07/09/25 16:44 doxycycline AdvReac Severe in-effectiv Verified 07/09/25 16:44 e Review of Systems Review of Systems: Yes all other systems are reviewed and are negative Constitutional: Constitutional: Denies fatigue and Denies fever(s) Cardiovascular: Cardiovascular: Reports chest pain and Denies dyspnea Respiratory: Respiratory: Denies dyspnea Musculoskeletal: Musculoskeletal: Reports arthralgias and Reports joint swelling Integumentary/Breasts: Skin/Breast: Reports erythema, Reports rash and Reports sores Endocrine: Endocrine: Denies fatigue PMFSH Past Medical History Attestation statement: The following information was validated with the patient. Medical History Left against medical advice SIMON (dyspnea on exertion) Shortness of breath Pedal edema Chest pain in adult Class 2 severe obesity with body mass index (BMI) of 35 to 39.9 with serious comorbidity Bilateral primary osteoarthritis of knee Osteoarthritis of right knee Diabetes mellitus type 2, uncontrolled COPD exacerbation Arthritis of both knees Chronic pain syndrome Allergic rhinitis VIDA on CPAP COPD (chronic obstructive pulmonary disease) Lumbar radiculopathy Allergic rhinitis Asthma Benign prostatic hyperplasia Back pain Sleep apnea HTN (hypertension) Lumbar spondylosis Tendon tear Depression Arthritis Asthma Crohn disease Surgical History H/O colonoscopy Family History Family History Father No problems noted. Mother No problems noted. Social History Social History Household Members: Family Housing: House Do you presently have visiting nurse or other home services: No Alcohol intake: never Comment: pain 3-4 left knee and buttock Patient Tobacco Use Status: Former Tobacco user e-Cigarette/Vaping Use: Never Used Second Hand Smoke Exposure: Yes Advance Directives Date on File: 07/07/24 service: No Current occupational status: retired Cognitive needs: Yes (cane) Hearing needs: No Vision needs: Yes (Glasses) Physical Exam ED Vital Signs: Vital Signs - 24 hr 07/09/25 16:40 07/09/25 20:23 Temperature 99.0 F 97.7 F Pulse Rate 68 69 Respiratory Rate 18 18 Blood Pressure 210/95 H 174/90 H Pulse Oximetry 97 97 Oxygen Delivery Method Room Air Room Air BMI result Body Mass Index 28.7 Const Other: Alert well-appearing Orientation/consciousness: patient oriented x3 Chest Other: No deformity noted over left lateral chest wall. Erythematous vesicular rash that spans left-sided anterior chest wraps around across the flank to the mid back, does not cross the midline Resp Effort & Inspection: normal respiratory effort Cardio Other: Normal peripheral perfusion Skin Other: Warm dry no rash Neuro General: patient oriented x3, gait normal, no focal motor deficits and CN's II-XI intact bilaterally Extrem Other: Able to flex and extend fully from the right wrist no deformity Psych Other: Cooperative Medications Administered Discontinued Medications Generic Name Dose Route Start Last Admin Trade Name Freq PRN Reason Stop Dose Admin Acetaminophen 975 mg 07/09/25 20:46 07/09/25 20:57 Acetaminophen 325 Mg Tablet PO 07/09/25 20:47 975 mg ONCE ONE Administration Oxycodone HCl 5 mg 07/09/25 20:46 07/09/25 20:57 Oxycodone Hcl Immed Release 5 Mg Tablet PO 07/09/25 20:47 5 mg ONCE ONE Administration Valacyclovir HCl 1,000 mg 07/09/25 20:45 07/09/25 20:57 Valacyclovir Hcl 1,000 Mg Tablet PO 07/09/25 20:46 1,000 mg ONCE ONE Administration Medical Decision Making Medical Decision Making MDM Narrative: 74-year-old male with a history of chronic pain, asthma, anxiety and depression, obesity, arthritis, diabetes, COPD, underlying cognitive disorder, VIDA on CPAP, BPH, who presents after fall. Patient states while walking he tripped and fell, landing on his left side. He now complains of right wrist and left lateral rib pain. There was no head strike, no loss consciousness. The patient does not use a blood thinner. In addition, patient has a painful rash that spans from the left side of the chest wraps around to the mid back on the left side, does not cross the midline. He has had the rash for 2 days. Problem: Chronic pain History: Per patient I have considered the following differential diagnoses: Fracture, dislocation, contusion, sprain, pneumothorax Plan: Rib series and wrist x-ray ordered from triage there are no fractures or dislocations. Incidentally, the patient also has shingles. We will treat with valacyclovir. I have independently reviewed the following tests: X-ray rib series:Findings: Lungs are clear with no pneumothorax or effusion. Cardiac and mediastinal contours are within normal limits. No displaced rib fracture identified. Impression: No acute process identified. X-ray right wrist:3 view right wrist Comparison: None provided Findings: No fractures or dislocations. No significant arthritic change or erosions. No radiopaque foreign body. IMPRESSION: 1. No acute findings Differential Diagnosis Differential Diagnoses: The differential diagnosis associated with the presentation includes See medical decision-making Admission/Observation Consideration of admission/observation: Escalation of care including admission/observation considered Not applicable Radiology Impression Discussion of test interpretation with radiology: I have reviewed the radiologist's reading. Discharge Plan Discharge Clinical Impression: Contusion of right wrist, Contusion of left chest wall, Shingles Patient Disposition: Home, Self-Care Instructions: Wrist Injury (ED), Shingles (ED), Rib Contusion (ED) Additional Instructions: The x-rays of the chest and the wrist were negative for fracture. You have sustained contusions. See home care instructions. You were also found to have shingles. In regard to the shingles take the antiviral medication as directed be sure to complete the course. You need to avoid contact with individuals who maybe immunocompromise; anyone , infants, elderly individuals, cancer patients. Avoid contact until the rash is resolved. In regard to musculoskeletal pain following the fall, you can continue to use your home gabapentin as directed. Use the oxycodone as needed for further pain. You should also be alternating with Tylenol 1000 mg taken every 8 hours. Follow up with your primary care provider as needed. Prescriptions: New valacyclovir 1 gram tablet 1,000 mg PO Q8H Qty: 20 0RF oxycodone 5 mg tablet 5 mg PO Q8H PRN (Reason: pain, moderate) Qty: 12 0RF Rx Instructions: Partial Fill upon patient request. No Action (DME) insulin syringe,safety needle 0.3 mL 29 x 1/2 syringe See Rx Instructions .Route Qty: 100 0RF Rx Instructions: As directed (DME) Comfort EZ Pen [place] 32 gauge x 5/16 needle See Rx Instructions .Route Qty: 100 0RF Rx Instructions: Use 3 times daily with insulin albuterol sulfate 2.5 mg /3 mL (0.083 %) solution for nebulization 2.5 mg inhalation Q4H PRN (Reason: shortness of breath or wheezing) Qty: 90 3RF metoprolol succinate 50 mg tablet extended release 24 hr 50 mg PO DAILY Qty: 90 1RF pantoprazole 20 mg tablet,delayed release (DR/EC) 20 mg PO DAILY@0630 Qty: 90 1RF insulin lispro [Humalog KwikPen Insulin] 100 unit/mL insulin pen 15 unit subcut TIDAC 90 Days Qty: 40.5 1RF clonazepam [Klonopin] 0.5 mg tablet 0.5 mg PO BEDTIME Qty: 45 0RF Rx Instructions: take 1/2 tab every am and 1 tab daily at bedtime orally; venlafaxine [Effexor XR] 75 mg capsule,extended release 24hr 75 mg PO DAILY Qty: 90 1RF venlafaxine [Effexor XR] 150 mg capsule,extended release 24hr 150 mg PO BEDTIME Qty: 90 1RF zolpidem 5 mg tablet 5 mg PO BEDTIME Qty: 30 2RF albuterol sulfate 90 mcg/actuation HFA aerosol inhaler 2 puff inhalation Q4H PRN (Reason: for wheezing) timolol maleate 0.5 % drops 1 drp ophthalmic-Left BID magnesium oxide 400 mg magnesium Tablet 400 mg PO DAILY latanoprost 0.005 % drops 1 drp ophthalmic-Left BEDTIME brimonidine 0.2 % drops 1 drp ophthalmic-Left BID PRN (Reason: Eye Pressure) budesonide 0.5 mg/2 mL suspension for nebulization 0.5 mg inhalation DAILY Qty: 120 4RF Interventions: ED Discharge Assessment Last Done: 07/09/25 21:04 Print Language: Kuwaiti
[2025-07-09] MEDS: oxyCODONE HCl Immed Release 5 MG TABLET PO (20:57)
[2025-07-09 21:04] VITALS: BP 174/90; PULSE 69; RESP 18; TEMP 36.5; O2SAT 97
== END 2025-07-09 21:05 | disposition home or self-care (01) ==
PROVIDERS: Emergency Provider Emergency Medicine Emergency Medical Services; PCP Internal Medicine
DX: S20.212A Contusion of left front wall of thorax, initial encounter (principal); S60.211A Contusion of right wrist, initial encounter; R07.89 Other chest pain; R21 Rash and other nonspecific skin eruption; B02.8 Zoster with other complications; X58.XXXA Exposure to other specified factors, initial encounter; Y93.9 Activity, unspecified; Y92.9 Unspecified place or not applicable; Y99.8 Other external cause status; Z79.899 Other long term (current) drug therapy; Z87.891 Personal history of nicotine dependence
CPT/HCPCS: 71101; 73110; 99283; 99284

== ENCOUNTER 2025-08-01 11:48 | Outpatient (AMB) | payer MEDICARE, SELFPAY ==
--- NOTE | 2025-08-01 12:00 | A.OFFPC_ITS ---
Vital Signs 08/01/25 12:03 Height 5 ft 8 in Weight 195 lb 4 oz BMI 29.7 BP 140/66 H Blood Pressure Location Rt brachial Position Sitting Pulse 60 Pulse Source Pulse Oximeter Temp 96.9 F Temp Source Temporal Artery Scan Pulse Oximetry (%) 97 Oxygen Delivery Method Room Air Intake Visit Reasons: follow up Intake Note: Patient is here to follow up on DM. Private Investigator Surveillance Required: No Cigar Making Supervisor: Not Required per policy Accompanied by: Self / Same As Patient Allergies hydrocortisone (HYDROCORTISONE) Allergy (Severe, Verified 08/01/25 12:06) SWELLING NSAIDS (Non-Steroidal Anti-Inflamma (NSAIDS (NON-STEROIDAL ANTI-INFLAMMA) Allergy (Severe, Verified 08/01/25 12:06) BLEEDING aspirin Allergy (Unknown, Verified 08/01/25 12:06) bleeding doxycycline Adverse Reaction (Severe, Verified 08/01/25 12:06) in-effective Tobacco use date assessed: 08/01/25 Fall risk assessment: No Falls in past year Last assessed Fall Risk: 08/01/25 Dental Screening Dental Screen Date: 08/01/25 Did you have a dental visit in the last 12 months?: Yes Did you have a dental problem in the last 6 months where you did not have access to dental care?: No Was dental information given to patient?: Patient has dentist [facility] Medical History (Updated 08/01/25 @ 12:18 by Hector Cherry MD) Post herpetic neuralgia Left against medical advice SIMON (dyspnea on exertion) Shortness of breath Pedal edema Chest pain in adult Class 2 severe obesity with body mass index (BMI) of 35 to 39.9 with serious comorbidity Bilateral primary osteoarthritis of knee Osteoarthritis of right knee Diabetes mellitus type 2, uncontrolled COPD exacerbation Arthritis of both knees Chronic pain syndrome Allergic rhinitis VIDA on CPAP COPD (chronic obstructive pulmonary disease) Lumbar radiculopathy Allergic rhinitis Asthma Benign prostatic hyperplasia Back pain Sleep apnea HTN (hypertension) Lumbar spondylosis Tendon tear Depression Arthritis Asthma Crohn disease Surgical History H/O colonoscopy Family History Father No problems noted. Mother No problems noted. Social History Household Members: Family Housing: House Do you presently have visiting nurse or other home services: No Alcohol intake: never Comment: pain 3-4 left knee and buttock Patient Tobacco Use Status: Former Tobacco user e-Cigarette/Vaping Use: Never Used Second Hand Smoke Exposure: Yes Advance Directives Date on File: 07/07/24 service: No Current occupational status: retired Cognitive needs: Yes (cane) Hearing needs: No Vision needs: Yes (Glasses) Questionnaire PHQ-9 Over the last 2 weeks, how often have you been bothered by any of the following problems? 1. Little interest or pleasure in doing things: not at all 2. Feeling down, depressed, or hopeless: more than half the days 3. Trouble falling or staying asleep, or sleeping too much: more than half the days 4. Feeling tired or having little energy: more than half the days 5. Poor appetite or overeating: several days 6. Feeling bad about yourself - or that you are a failure or have let yourself or your family down: several days 7. Trouble concentrating on things, such as reading the newspaper or watching television: several days 8. Moving or speaking so slowly that other people could have noticed. Or the opposite - being so fidgety or restless that you have been moving around a lot more than usual: several days 9. Thoughts that you would be better off or of hurting yourself in some way: more than half the days Total score: 12 Depression Screening Interpretation: Positive Depression Screening Done: Yes Source: Developed by Drs. Santiago Schwartz, Ana María Deleon, Osbaldo Alexander and colleagues, with an educational jose de jesus from [employer]. Thrive Questionnaire Date Thrive assessed: 04/13/25 I am a: Patient What is your living situation today?: I have a steady place to live Within the past 12 months, did the food you bought not last and you didn't have the money to get more?: Sometimes True Within the past 12 months, did you worry whether your food would run out before you got money to buy more?: Often true Do you have trouble paying for medicines?: Yes Do you have trouble getting transportation to medical appointments?: No Do you have trouble paying your heating and electricity bill?: Yes Do you have trouble taking care of your child, family member or friend?: No Do you have trouble with day-to-day activities such as bathing, preparing meals, shopping, managing finances, etc.?: Yes Are you currently unemployed and looking for a job?: No Are you interested in more education?: No Currently or been in a relationship where the following occur: I choose not to answer THRIVE Score: 3 ESTELLA-7 AMB Questionnaire ESTELLA-7 Date ESTELLA - 7 assessed: 08/01/25 Feeling nervous, anxious, or on edge: 0 = Not at all Not being able to stop or control worryin = Not at all Worrying too much about different things: 0 = Not at all Trouble relaxin = Not at all Being so restless that it is hard to sit still: 0 = Not at all Becoming easily annoyed or irritable: 0 = Not at all Feeling afraid as if something awful might happen: 0 = Not at all Total ESTELLA-7 score (0-4 normal; 5-9 mild; 10-14 moderate; 15-21 severe): 0 Source: Developed by Drs. Santiago Schwartz, Ana María Deleon, Osbaldo Alexander and colleagues, with an educational jose de jesus from [employer]. Physical exam (Primary Care) Vital Signs: Last Vital Signs Temp 96.9 F 08/01/25 12:03 Pulse 60 08/01/25 12:03 BP 140/66 H 08/01/25 12:03 Pulse Ox 97 08/01/25 12:03 Oxygen Delivery Method Room Air 08/01/25 12:03 BMI result Body Mass Index 29.7 Tobacco/Smoking Status: Tobacco use Status Tobacco use date assessed 08/01/25 08/01/25 12:10 Patient Tobacco Use Status Former Tobacco user 08/01/25 12:01 e-Cigarette/Vaping Use Never Used 08/01/25 12:01 PHQ-9: PHQ-9 Score PHQ-9: Total score 12 08/01/25 12:10 Depression Screening Interpretation: Positive Thrive Assessment: Date of Thrive Assessment Date Thrive assessed 04/13/25 08/01/25 12:01 Currently or been in a relationship where the following occur: I choose not to answer Results AMB Hemoglobin A1c AMB Hemoglobin A1c 3.5 % Last Edit by CLAU Hamilton on 08/01/25 12:14 Results Reviewed Results Reviewed: Laboratory Last Values Hgb A1c (Clinic) 3.5 % (4.0-6.0) L 08/01/25 11:59 Coding Diagnoses Diabetes mellitus type 2, uncontrolled E11.65 Post herpetic neuralgia B02.29 Assessment & Plan Assessment & Plan (1) Diabetes mellitus type 2, uncontrolled: Code(s): E11.65 - Type 2 diabetes mellitus with hyperglycemia Category: Medical Plan: BW ordered. Patient is using insulin intermittently. Advised him to take his meds everyday (2) Post herpetic neuralgia: Code(s): B02.29 - Other postherpetic nervous system involvement Category: Medical Plan: Neurontin added to the regimen Orders: Orders Basic Metabolic Panel Today E11.65 - Type 2 diabetes mellitus with hyperglycemia Lipid Panel Today E11.65 - Type 2 diabetes mellitus with hyperglycemia Liver Panel Today E11.65 - Type 2 diabetes mellitus with hyperglycemia Thyroid Stimulating Hormone Today E11.65 - Type 2 diabetes mellitus with hyperglycemia Complete Blood Count no Diff Today E11.65 - Type 2 diabetes mellitus with hyperglycemia Hemoglobin A1c Today E11.65 - Type 2 diabetes mellitus with hyperglycemia UA and rflx microscopic Today E11.65 - Type 2 diabetes mellitus with hyperglycemia AMB Hemoglobin A1c Today E11.65 - Type 2 diabetes mellitus with hyperglycemia, Z13.9 - Encounter for screening, unspecified Medications: New gabapentin (Neurontin) 100 mg PO TID 90 caps 0RF
[2025-08-01 12:03] VITALS: BP 140/66; PULSE 60; TEMP 36.1; O2SAT 97; BMI 29.7
--- OUTSIDE RECORDS SUMMARY | 2025-08-01 13:33 | XMS_ITS | Clinical Summary ---
Author Organization [facility] Address [address] [place] [address] Phone Care Team Providers Care Housesmith Name Role Phone Physician, No Pcp Primary [...] PM EDT Office Visit Vascular Surgery - [place] [address] [place] [address] Bari Goins MD [address] [place] [address] Health Maintenance Due Date Last Done Comments Colorectal Cancer Screening: Colonoscopy 1950 DTaP,Tdap,and Td Vaccines (1 - Tdap) 1969 Pneumococcal Vaccine: 50+ Ye ars (1 of 1 - PCV) 2000 Zoster Vaccines (1 of 2) 2000 Depression Screening 10/31/2024 Abdominal Aortic Aneurysm (A AA) Screen 11/12/2024 Cholesterol Screening (Lipid Panel) 11/12/2024 Falls Risk Assessment 11/12/2024 Hepatitis C [...] topic Insurance [employer] MEDICARE Care Teams Housesmith Relationship Specialty Start Date End Date Physician, No Pcp PCP - General 11/12/24
== END 2025-08-01 12:16 | disposition home or self-care (01) ==
LOC: HO.HMCH 11:49
PROVIDERS: PCP Internal Medicine; Visit Provider Internal Medicine
DX: Z13.9 Encounter for screening, unspecified (principal); E11.65 Type 2 diabetes mellitus with hyperglycemia

== ENCOUNTER → 2025-08-01 11:48 | Outpatient (BNVA) | payer MEDICARE, SELFPAY | PROVIDERS: PCP Internal Medicine; Visit Provider Internal Medicine | DX: E11.65 Type 2 diabetes mellitus with hyperglycemia (principal); B02.29 Other postherpetic nervous system involvement | CPT/HCPCS: 83036; 96127; 99212 ==

== ENCOUNTER 2025-08-13 10:21 | Emergency (ER) | payer MEDICARE, SELFPAY ==
[2025-08-13 10:28] VITALS: BP 170/77; PULSE 61; RESP 18; TEMP 36.6; O2SAT 98; BMI 29.6
--- NOTE | 2025-08-13 11:09 | ED.GENADULT ---
HPI - General Adult General Chief complaint: General Medical Stated complaint: L side pain Time Seen by Provider: 08/13/25 11:09 Source: patient Mode of arrival: ambulatory Limitations: no limitations History of Present Illness ED Provider: Dr. Obinna Hayes HPI narrative: 75-year-old male with a history of diabetes mellitus, hypertension, COPD, BPH, chronic pain, depression, Crohn's disease who presents emergency department for evaluation of left-sided chest and back pain. Patient was diagnosed with shingles 2-3 weeks prior. He states that his doctor gave him oxycodone and gabapentin which I gave him only minimal relief of his symptoms. He states he took the gabapentin for only 1 day and stop the medication cause he did not like the way it made him feel. The patient states that his pain was so severe that he told the triage nurse that he was going to kill himself if they did not get help with the pain. He denied fever, chills, shortness breath, dyspnea on exertion, nausea, vomiting Related Data Home Medications ?Medication ?Instructions ?Recorded ?Confirmed latanoprost 0.005 % eye drops 1 drp ophthalmic-Left BEDTIME 11/17/21 04/11/25 brimonidine 0.2 % eye drops 1 drp ophthalmic-Left BID PRN Eye 05/18/23 04/11/25 Pressure albuterol sulfate 90 mcg/actuation 2 puff inhalation Q4H PRN for 06/19/24 04/11/25 aerosol inhaler wheezing timolol maleate 0.5 % eye drops 1 drp ophthalmic-Left BID 06/24/24 04/11/25 magnesium oxide 400 mg PO DAILY 04/11/25 04/11/25 Previous Rx's ?Medication ?Instructions ?Recorded insulin syringe,safety needle 0.3 #100 ea 09/28/21 mL 29 gauge x 1/2 pen needle, diabetic 32 gauge x #100 ea 04/09/22/16 (Comfort EZ Pen Bowman) albuterol sulfate 2.5 mg/3 mL 2.5 mg (3 mL) inhalation Q4H PRN 10/29/24 (0.083 %) solution for nebulization shortness of breath or wheezing #90 mL budesonide 0.5 mg/2 mL suspension 0.5 mg (2 mL) inhalation DAILY 12/13/24 for nebulization ASTHMA/COPD #120 mL metoprolol succinate 50 mg 50 mg PO DAILY #90 tabs 01/22/25 tablet,extended release 24 hr pantoprazole 20 mg tablet,delayed 20 mg PO DAILY@0630 #90 tabs 01/22/25 release insulin lispro 100 unit/mL 15 unit (0.15 mL) subcut TIDAC 04/24/25 subcutaneous pen (Humalog KwikPen Blood Sugar Levels 90 days #40.5 mL (U-100) Insulin) venlafaxine 150 mg 150 mg PO BEDTIME #90 caps 06/19/25 capsule,extended release 24 hr (Effexor XR) venlafaxine 75 mg capsule,extended 75 mg PO DAILY #90 caps 06/19/25 release 24 hr (Effexor XR) zolpidem 5 mg tablet 5 mg PO BEDTIME #30 tabs 06/19/25 valacyclovir 1 gram tablet 1,000 mg PO Q8H #20 tabs 07/09/25 clonazepam 0.5 mg tablet (Klonopin) 0.5 mg PO BEDTIME #45 tabs 07/31/25 gabapentin 100 mg capsule 100 mg PO TID #90 caps 08/01/25 (Neurontin) morphine 15 mg immediate release 15 mg PO Q6H PRN pain #14 tabs 08/13/25 tablet Allergies Allergy/AdvReac Type Severity Reaction Status Date / Time hydrocortisone Allergy Severe SWELLING Verified 08/13/25 10:31 (HYDROCORTISONE) NSAIDS (Non-Steroidal Allergy Severe BLEEDING Verified 08/13/25 10:31 Anti-Inflamma (NSAIDS (NON-STEROIDAL ANTI-INFLAMMA) aspirin Allergy Unknown bleeding Verified 08/13/25 10:31 doxycycline AdvReac Severe in-effectiv Verified 08/13/25 10:31 e Review of Systems Review of Systems: Yes all other systems are reviewed and are negative PMFSH Past Medical History Medical History (Updated 08/13/25 @ 14:14 by Obinna Hayes MD) Post herpetic neuralgia Left against medical advice SIMON (dyspnea on exertion) Shortness of breath Pedal edema Chest pain in adult Class 2 severe obesity with body mass index (BMI) of 35 to 39.9 with serious comorbidity Bilateral primary osteoarthritis of knee Osteoarthritis of right knee Diabetes mellitus type 2, uncontrolled COPD exacerbation Arthritis of both knees Chronic pain syndrome Allergic rhinitis VIDA on CPAP COPD (chronic obstructive pulmonary disease) Lumbar radiculopathy Allergic rhinitis Asthma Benign prostatic hyperplasia Back pain Sleep apnea HTN (hypertension) Lumbar spondylosis Tendon tear Depression Arthritis Asthma Crohn disease Surgical History H/O colonoscopy Family History Family History Father No problems noted. Mother No problems noted. Social History Social History Household Members: Family Housing: House Do you presently have visiting nurse or other home services: No Alcohol intake: never Comment: pain 3-4 left knee and buttock Patient Tobacco Use Status: Former Tobacco user e-Cigarette/Vaping Use: Never Used Second Hand Smoke Exposure: Yes Advance Directives: No Advance Directives Information Provided: Yes Advance Directives Date on File: 07/07/24 Do you have a plan to hurt others: No Plan service: No Current occupational status: retired Cognitive needs: Yes (cane) Hearing needs: No Vision needs: Yes (Glasses) Physical Exam ED Vital Signs: Vital Signs - 24 hr 08/13/25 10:28 08/13/25 14:17 08/13/25 14:27 Temperature 98 F 98 F Pulse Rate 61 59 70 Respiratory Rate 18 15 15 Blood Pressure 170/77 H 161/88 H 149/65 H Pulse Oximetry 98 97 98 Oxygen Delivery Method Room Air Room Air Room Air BMI result Body Mass Index 29.6 Vital signs revealed an elevated blood pressure of 170/77 otherwise Exam: General: Awake, alert in no distress Head: Normocephalic, atraumatic EENT: PERRL, sclera and conjunctiva are normal, mouth with no erythema or exudates Neck: Supple, no adenopathy Lung: breath sounds symmetric, no wheezing, no rales and no rhonchi Chest: symmetric movement, nontender, patient has a rash on his left anterior and posterior chest consistent with healing shingles, no evidence of cellulitis Heart: regular rate and rhythm, normal S1, S2 no murmurs or rubs Abdomen: soft, non-tender, nondistended, normal bowel sounds Back: no vertebral tenderness, no CVAT Extremities: no deformities, moves all extremities symmetrically, no edema Neuro: Awake, alert, oriented, normal speech, cranial nerves 2-12 intact, moves all extremities symmetrically Psych: Pleasant, cooperative Medications Administered Discontinued Medications Generic Name Dose Route Start Last Admin Trade Name Sudhakar PRN Reason Stop Dose Admin Morphine Sulfate 4 mg 08/13/25 11:21 08/13/25 11:42 Morphine Sulfate 4 Mg/Ml Cartridge IVPUSH 08/13/25 11:22 4 mg ONCE STA Administration Protocol Morphine Sulfate 4 mg 08/13/25 12:45 08/13/25 13:13 Morphine Sulfate 4 Mg/Ml Cartridge IVPUSH 08/13/25 12:46 4 mg ONCE STA Administration Protocol Medical Decision Making Medical Decision Making MDM Narrative: 5-year-old male with a history of diabetes mellitus, hypertension, COPD, BPH, chronic pain, depression, Crohn's disease who presents emergency department for evaluation of left-sided chest and back pain. Patient was diagnosed with shingles 2-3 weeks prior. He states that his doctor gave him oxycodone and gabapentin which I gave him only minimal relief of his symptoms. He states he took the gabapentin for only 1 day and stop the medication cause he did not like the way it made him feel. The patient states that his pain was so severe that he told the triage nurse that he was going to kill himself if they did not get help with the pain. He denied fever, chills, shortness breath, dyspnea on exertion, nausea, vomiting. Vital signs revealed an elevated blood pressure otherwise unremarkable. Patient has a rash on his left chest which is consistent with healing shingles with no evidence of cellulitis. Differential diagnosis: ?Includes but is not limited to myocardial infarction, myocardial ischemia, chest wall pain, post hepatic neuralgia Course: The patient's presentation is consistent with shingles pain and the patient may be developing post hepatic neuralgia. Patient was complaining of severe pain was treated with morphine 4 mg IV x2 doses with significant improvement of his pain. The patient denied suicidal ideation with me and he states that at the time of triage she was just feeling severe pain and that is why he made that statement. He has no intention of harming himself or others. The patient was advised to take Tylenol for pain and for pain not relieved by Tylenol he was prescribed morphine 15 mg every 6 hours as needed. Differential Diagnosis Differential Diagnoses: The differential diagnosis associated with the presentation includes (See above) Admission/Observation Consideration of admission/observation: Escalation of care including admission/observation considered (Yes) Prescription Management I considered prescription management with: Pain Medication (Morphine) Chronic Conditions Patient?s care impacted by: Diabetes and Other (COPD) Discharge Plan Discharge Clinical Impression: Shingles, Chest wall pain Patient Disposition: Home, Self-Care Additional Instructions: The pain in your chest is caused by shingles. It is sometimes takes 3-6 weeks for shingle pain to get better and sometimes it even takes longer Take Tylenol (acetaminophen) 2 pills every 6 hours as needed for pain. For pain not relieved by Tylenol take morphine 15 mg pills, 1 pill every 6 hours as needed for pain. This medication will make you sleepy, do not drive or work while taking this medication. Morphine is a narcotic medication and can be addicting. If you are concerned about addiction you can ask the pharmacist for less pills or do not get this prescription filled. Follow-up with your doctor in 2 days. Please return to the emergency department if your symptoms get worse or if you develop any symptoms that are concerning to you. Prescriptions: New morphine 15 mg tablet 15 mg PO Q6H PRN (Reason: pain) Qty: 14 0RF Rx Instructions: Partial Fill upon patient request. No Action (DME) insulin syringe,safety needle 0.3 mL 29 x 1/2 syringe See Rx Instructions .Route Qty: 100 0RF Rx Instructions: As directed (DME) Comfort EZ Pen Bowman 32 gauge x 5/16 needle See Rx Instructions .Route Qty: 100 0RF Rx Instructions: Use 3 times daily with insulin albuterol sulfate 2.5 mg /3 mL (0.083 %) solution for nebulization 2.5 mg inhalation Q4H PRN (Reason: shortness of breath or wheezing) Qty: 90 3RF metoprolol succinate 50 mg tablet extended release 24 hr 50 mg PO DAILY Qty: 90 1RF pantoprazole 20 mg tablet,delayed release (DR/EC) 20 mg PO DAILY@0630 Qty: 90 1RF insulin lispro [Humalog KwikPen Insulin] 100 unit/mL insulin pen 15 unit subcut TIDAC 90 Days Qty: 40.5 1RF venlafaxine [Effexor XR] 75 mg capsule,extended release 24hr 75 mg PO DAILY Qty: 90 1RF venlafaxine [Effexor XR] 150 mg capsule,extended release 24hr 150 mg PO BEDTIME Qty: 90 1RF zolpidem 5 mg tablet 5 mg PO BEDTIME Qty: 30 2RF clonazepam [Klonopin] 0.5 mg tablet 0.5 mg PO BEDTIME Qty: 45 0RF Rx Instructions: take 1/2 tab every am and 1 tab daily at bedtime orally; valacyclovir 1 gram tablet 1,000 mg PO Q8H Qty: 20 0RF albuterol sulfate 90 mcg/actuation HFA aerosol inhaler 2 puff inhalation Q4H PRN (Reason: for wheezing) timolol maleate 0.5 % drops 1 drp ophthalmic-Left BID magnesium oxide 400 mg magnesium Tablet 400 mg PO DAILY latanoprost 0.005 % drops 1 drp ophthalmic-Left BEDTIME brimonidine 0.2 % drops 1 drp ophthalmic-Left BID PRN (Reason: Eye Pressure) budesonide 0.5 mg/2 mL suspension for nebulization 0.5 mg inhalation DAILY Qty: 120 4RF gabapentin [Neurontin] 100 mg capsule 100 mg PO TID Qty: 90 0RF Interventions: ED Discharge Assessment Last Done: 08/13/25 14:27 Discharge Date/Time: 08/13/25 14:49 Print Language: Czech
--- NOTE | 2025-08-13 12:28 | PC.NURSE ---
Pt denies SI/HI/AVH. Was examined by provider, no longer needs to be on a psych observation. Plan is to treat patient's pain and reassess.
--- NOTE | 2025-08-13 12:29 | PC.NURSE ---
Pt has open sores, shingles [id number] on left torso. Describes as stabbing pain.
--- OUTSIDE RECORDS SUMMARY | 2025-08-13 13:30 | XMS_ITS | Clinical Summary ---
Author Organization [facility] Address [address] [place] [address] Phone Care Team Providers Care Hydrochloric Area Supervisor Name Role Phone Physician, No Pcp Primary [...] PM EDT Office Visit Vascular Surgery - [place] [address] [place] [address] Bari Goins MD [address] [place] [address] Health Maintenance Due Date Last [...] topic Insurance [employer] MED[employer]ARE Care Teams Hydrochloric Area Supervisor Relationship Specialty Start Date End Date Physician, No Pcp PCP - General 11/12/24
[2025-08-13 14:17] VITALS: BP 161/88; PULSE 59; RESP 15; O2SAT 97
[2025-08-13 14:27] VITALS: BP 149/65; PULSE 70; RESP 15; TEMP 36.6; O2SAT 98
== END 2025-08-13 14:49 | disposition home or self-care (01) ==
PROVIDERS: Emergency Provider Emergency Medicine Emergency Medical Services; PCP Internal Medicine
DX: B02.9 Zoster without complications (principal); E11.9 Type 2 diabetes mellitus without complications; I10 Essential (primary) hypertension; J44.9 Chronic obstructive pulmonary disease, unspecified; K50.90 Crohn's disease, unspecified, without complications; M54.9 Dorsalgia, unspecified; Z87.891 Personal history of nicotine dependence; Z79.899 Other long term (current) drug therapy
CPT/HCPCS: 96374; 96376; 99284; J2270

== ENCOUNTER 2025-08-26 15:17 | Outpatient (AMB) | payer MEDICARE, SELFPAY ==
[2025-08-26 15:22] VITALS: BP 120/82; PULSE 69; O2SAT 97; BMI 28.8
--- NOTE | 2025-08-26 15:22 | MHC.OFFVIS ---
Vital Signs 08/26/25 15:22 Height 5 ft 8 in Weight 189 lb 9.561 oz BMI 28.8 BP 120/82 Blood Pressure Location Lt brachial Position Sitting Pulse 69 Pulse Source Pulse Oximeter Pulse Oximetry (%) 97 Oxygen Delivery Method Room Air Intake Visit Reasons: copd Intake Note: pt is here for follow up and states he is feeling good with his breathing. please refill albuterol hfa Sports Physician Required: No Boardinghouse Keeper: Boardinghouse Keeper offered & declined Allergies hydrocortisone (HYDROCORTISONE) Allergy (Severe, Verified 08/26/25 15:39) SWELLING NSAIDS (Non-Steroidal Anti-Inflamma (NSAIDS (NON-STEROIDAL ANTI-INFLAMMA) Allergy (Severe, Verified 08/26/25 15:39) BLEEDING aspirin Allergy (Unknown, Verified 08/26/25 15:39) bleeding doxycycline Adverse Reaction (Severe, Verified 08/26/25 15:39) in-effective Medication List - Last Reconciled 08/26/25 by Pepe Rojas MD albuterol sulfate 90 mcg/actuation 2 puffs inhalation Q4H PRN albuterol sulfate 2.5 mg (3 mL) inhalation Q4H PRN brimonidine 0.2% 1 drp ophthalmic-Left BID PRN budesonide 0.5 mg (2 mL) inhalation DAILY clonazepam (Klonopin) 0.5 mg PO BEDTIME gabapentin (Neurontin) 100 mg PO TID insulin lispro (Humalog KwikPen (U-100) Insulin) 15 units (0.15 mL) subcut TIDAC 90 days insulin syringe,safety needle As directed latanoprost 0.005% 1 drp ophthalmic-Left BEDTIME magnesium oxide 400 mg PO DAILY metoprolol succinate ER 50 mg PO DAILY morphine 15 mg PO Q6H PRN pantoprazole 20 mg PO DAILY@0630 pen needle, diabetic (Comfort EZ Pen [place]) Use 3 times daily with insulin timolol maleate 0.5% 1 drp ophthalmic-Left BID valacyclovir 1,000 mg PO Q8H venlafaxine ER (Effexor XR) 150 mg PO BEDTIME venlafaxine ER (Effexor XR) 75 mg PO DAILY zolpidem 5 mg PO BEDTIME Do you need a note to return to daycare/school/sports/work: No HPI HPI copd: Details: Solitario, 75 years old gentleman is here for pulmonary follow-up after 3 months. He has bronchial asthma/COPD which is controlled with the use of budesonide 0.5 mg in the nebulizer twice a day, and he needs to use albuterol only p.r.n.. Most of his complaint was about chest pain on the left sides and he went to the emergency room about 10 days is go. The chest wall pain is secondary to eruption of herpes zoster , he has history of using. narcotic meds in the past So he was prescribed morphine 15 mg to take Q 4-6 hours p.r.n.. He has finished the supply and, today his complaint was mostly about not able to get the pain med. Breathing is fine he has no cough or expectoration. He continues to use his CPAP for the sleep apnea. [facility], [facility] Medical History Post herpetic neuralgia Left against medical advice SIMON (dyspnea on exertion) Shortness of breath Pedal edema Chest pain in adult Class 2 severe obesity with body mass index (BMI) of 35 to 39.9 with serious comorbidity Bilateral primary osteoarthritis of knee Osteoarthritis of right knee Diabetes mellitus type 2, uncontrolled COPD exacerbation Arthritis of both knees Chronic pain syndrome Allergic rhinitis VIDA on CPAP COPD (chronic obstructive pulmonary disease) Lumbar radiculopathy Allergic rhinitis Asthma Benign prostatic hyperplasia Back pain Sleep apnea HTN (hypertension) Lumbar spondylosis Tendon tear Depression Arthritis Asthma Crohn disease Surgical History H/O colonoscopy Family History Father No problems noted. Mother No problems noted. Social History Household Members: Family Housing: House Do you presently have visiting nurse or other home services: No Alcohol intake: never Comment: pain 3-4 left knee and buttock Patient Tobacco Use Status: Former Tobacco user e-Cigarette/Vaping Use: Never Used Second Hand Smoke Exposure: Yes Advance Directives Date on File: 07/07/24 service: No Current occupational status: retired Cognitive needs: Yes (cane) Hearing needs: No Vision needs: Yes (Glasses) Review of Systems Const All systems reviewed & are unremarkable except as noted in HPI and below Eyes Reports no additional complaints ENT Reports nasal congestion and Reports nasal discharge (Postnasal discharge off and on) Card Denies chest pain, Denies irregular heart rhythm and Denies dyspnea on exertion Resp Reports as per HPI, Denies dyspnea on exertion and Reports other (Complains of lot of pain over the left mid chest due to fall yesterday) GI Reports heartburn (Symptoms of GERD or controlled) Reports no additional complaints Musc Reports back pain, Reports myalgias and Reports arthralgias Skin/Breast Reports system reviewed and no additional complaints, except as documented Neuro Reports no additional complaints Psych Reports no additional complaints Physical Exam Vital Signs: Last Vital Signs Pulse 69 08/26/25 15:22 BP 120/82 08/26/25 15:22 Pulse Ox 97 08/26/25 15:22 Oxygen Delivery Method Room Air 08/26/25 15:22 BMI result Body Mass Index 28.8 Const Other: HE LOOKS OVERWEIGHT, TIRED AND SOMEWHAT DEPRESSED. General: comfortable, no acute distress, alert and awake Orientation/consciousness: patient oriented x3 HEENT Head: Yes normal to inspection General nose exam: No nasal polyps present and No nasal discharge present Face and sinus: Yes sinuses nontender Mouth: oropharynx normal Throat: Yes posterior oropharynx normal Eyes General: appearance normal, both eyes and all related structures Neck Neck: Yes normal visual inspection, Yes no lymphadenopathy, Yes trachea midline and Yes no JVD Thyroid: Thyroid normal Chest Chest palpation & inspection: normal inspection of the chest, normal palpation of entire chest wall and no tenderness Resp Other: PERCUSSION NOTE RESONANT, BREATH SOUNDS ARE VERY DISTANT, WITH PROLONGED EXPIRATORY PHASE. NO WHEEZES OR CREPITATIONS ARE HEARD TODAY. Cardio Palpation: normal PMI Rate: regular rate Rhythm: regular rhythm Heart sounds: no gallops and no murmurs GI Palpation (GI): Soft to palpation, nontender, No hepatosplenomegaly present, no masses and Other GI palpation findings present (ABDOMEN IS MODERATELY PROTUBERANT) Auscultation: normal bowel sounds Back/Spine/Pelvis Thoracic/Lumbar Spine: thoracic and lumbar spine normal to inspection, thoraco-lumbar ROM limited and thoraco-lumbar spasm Skin General skin exam: no rashes or lesions noted Neuro General: patient oriented x3 and no focal motor deficits Cranial nerves: Yes CN's II-XII intact bilaterally Extrem General: Yes normal to inspection, No no joint enlargement (BOTH KNEES ARE SLIGHTLY ENLARGED AND PAINFUL), Yes no clubbing, cyanosis or edema, Yes no calf tenderness and Yes normal gait (NEEDS A CANE) Psych Appearance: grossly normal Speech and movement: Normal speech and movement present Assessment & Plan Assessment & Plan (1) COPD (chronic obstructive pulmonary disease): Comment: THIS GENTLEMAN HAS CHRONIC, MODERATELY SEVERE, ASTHMA/COPD OVERLAP SYNDROME. HE IS STABLE AT THIS TIME BUT HE GETS SHORT OF BREATH ON MODERATE EXERTION, Code(s): J44.9 - Chronic obstructive pulmonary disease, unspecified Category: Medical Plan: Budesonide 0.5 mg in 2 ml solution use in the nebulizer once a day Albuterol HFA 2 puffs Q 6 hours p.r.n./ or alternatively albuterol sulfate 2.5 mg in the nebulizer Q 4-6 hours p.r.n.. (2) VIDA on CPAP: Comment: THIS GENTLEMAN HAS OBSTRUCTIVE SLEEP APNEA FOR MANY YEARS, HAS BEEN USING HIS CPAP VERY. REGULARLY AT NIGHT HE IS VERY HAPPY WITH HIS NEW CPAP MACHINE AND HAS NO ISSUES WITH THE MASK. Code(s): G47.33 - Obstructive sleep apnea (adult) (pediatric); Z99.89 - Dependence on other enabling machines and devices Category: Medical Plan: Continue to use the CPAP regularly every night Coding Level of Care Code Est Pt Level 3 (73930) Diagnoses COPD (chronic obstructive pulmonary disease) J44.9 VIDA on CPAP G47.33; Z99.89
--- OUTSIDE RECORDS SUMMARY | 2025-08-26 18:32 | XMS_ITS | Clinical Summary ---
Author Organization [facility] Address [address] [place] [address] Phone Care Team Providers Care Tuft Machine Operator Name Role Phone Physician, No Pcp Primary [...] 11/12/2024 11:48 AM EST Plan of Treatment Health Maintenance Due Date Last Done Comments [...] Influencers of Health Screening 11/12/2024 COVID-19 Vaccine ( - 2023-2 5 season) 2025 Influenza Vaccine [...] topic Insurance [employer] MED[employer]ARE Care Teams Tuft Machine Operator Relationship Specialty Start Date End Date Physician, No Pcp PCP - General 11/12/24
== END 2025-08-26 15:39 | disposition home or self-care (01) ==
LOC: HO.HPS 15:18
PROVIDERS: PCP Internal Medicine; Visit Provider Internal Medicine
DX: J44.9 Chronic obstructive pulmonary disease, unspecified (principal); G47.33 Obstructive sleep apnea (adult) (pediatric); Z99.89 Dependence on other enabling machines and devices
CPT/HCPCS: 99213

== ENCOUNTER → 2025-08-26 15:17 | Outpatient (BNVA) | payer MEDICARE, SELFPAY | PROVIDERS: PCP Internal Medicine; Visit Provider Internal Medicine | DX: J44.89 Other specified chronic obstructive pulmonary disease (principal); Z87.891 Personal history of nicotine dependence; R06.02 Shortness of breath; G47.33 Obstructive sleep apnea (adult) (pediatric); Z99.89 Dependence on other enabling machines and devices | CPT/HCPCS: 99212 ==

== ENCOUNTER 2025-09-04 11:44 | Day surgery (SDC) | payer MEDICARE, SELFPAY ==
--- OUTSIDE RECORDS SUMMARY | 2025-07-16 11:04 | XMS_ITS | Clinical Summary ---
Author Organization [facility] Address [address] [place] [address] Phone Care Team Providers Care Search Engine Optimization Manager Name Role Phone Physician, No Pcp Primary [...] PM EDT Office Visit Vascular Surgery - [place] [address] [place] [address] Bari Goins MD [address] [place] [address] Health Maintenance Due Date Last Done [...] topic Insurance [employer] MEDICARE Care Teams Search Engine Optimization Manager Relationship Specialty Start Date End Date Physician, No Pcp PCP - General 11/12/24
[2025-09-02 11:11] VITALS: BMI 32.1
--- NOTE | 2025-09-02 13:25 | HO.ANESPROP2 ---
Documented by User: Judy Odell NP 09/02/25 13:28 HPI - Anesthesia Eval Consult details Narrative: 75yo M for Colonoscopy 07/2025 shingles eruption over chest wall Hx OUD PMFSH Active Problems Active Problems: All Active Problems Crohn's disease of small intestine with intestinal obstruction (Acute) Small bowel obstruction (Acute) Right upper lobe pneumonia (Acute) Asthma (Acute) Insomnia (Acute) ESTELLA (generalized anxiety disorder) (Acute) Major depressive disorder, recurrent severe without psychotic features (Acute) Right knee pain (Acute) Annual physical exam (Acute) intermediate (current) use of opiate analgesic (Acute) Retained foreign body (Acute) Bilateral chronic knee pain (Acute) Sacroiliac joint pain (Acute) Mild cognitive disorder (Acute) Degenerative arthritis of knee, bilateral (Acute) Post herpetic neuralgia (Acute) Left against medical advice (Acute) SIMON (dyspnea on exertion) (Acute) Shortness of breath (Acute) Pedal edema (Acute) Chest pain in adult (Acute) Class 2 severe obesity with body mass index (BMI) of 35 to 39.9 with serious comorbidity (Acute) Bilateral primary osteoarthritis of knee (Acute) Osteoarthritis of right knee (Acute) Diabetes mellitus type 2, uncontrolled (Acute) COPD exacerbation (Acute) Arthritis of both knees (Acute) Chronic pain syndrome (Acute) Allergic rhinitis (Acute) VIDA on CPAP (Acute) COPD (chronic obstructive pulmonary disease) (Acute) Lumbar radiculopathy (Acute) Asthma (Acute) Benign prostatic hyperplasia (Acute) Lumbar spondylosis (Acute) Depression (Acute) Arthritis (Acute) Asthma (Acute) Crohn disease (Acute) Past Medical History Medical History Gastritis DJD (degenerative joint disease) GERD (gastroesophageal reflux disease) Post herpetic neuralgia Left against medical advice SIMON (dyspnea on exertion) Shortness of breath Pedal edema Chest pain in adult Class 2 severe obesity with body mass index (BMI) of 35 to 39.9 with serious comorbidity Bilateral primary osteoarthritis of knee Osteoarthritis of right knee Diabetes mellitus type 2, uncontrolled Arthritis of both knees Chronic pain syndrome Allergic rhinitis VIDA on CPAP COPD (chronic obstructive pulmonary disease) Lumbar radiculopathy Asthma Benign prostatic hyperplasia Back pain HTN (hypertension) Lumbar spondylosis Tendon tear Depression Crohn disease Family History Family History Father No problems noted. Mother No problems noted. Surgical History Surgical History H/O colonoscopy Social History Social History Household Members: Family Housing: House Do you presently have visiting nurse or other home services: No Alcohol intake: never Comment: pain 3-4 left knee and buttock Patient Tobacco Use Status: Former Tobacco user e-Cigarette/Vaping Use: Never Used Second Hand Smoke Exposure: Yes Use of substances other than those prescribed or required for medical reasons: No Are you DNR?: No Advance Directives: No Advance Directives Information Provided: Yes Advance Directives Date on File: 07/07/24 service: No Current occupational status: retired Cognitive needs: Yes (cane) Hearing needs: No Vision needs: Yes (Glasses) Meds Allergies Allergy/AdvReac Type Severity Reaction Status Date / Time hydrocortisone Allergy Severe SWELLING Verified 09/04/25 12:03 (HYDROCORTISONE) NSAIDS (Non-Steroidal Allergy Severe BLEEDING Verified 09/04/25 12:03 Anti-Inflamma (NSAIDS (NON-STEROIDAL ANTI-INFLAMMA) aspirin Allergy Unknown bleeding Verified 09/04/25 12:03 doxycycline AdvReac Severe in-effectiv Verified 09/04/25 12:03 e Home Medications ?Medication ?Instructions ?Recorded ?Confirmed ?Last Taken ?Type latanoprost 0.005 % eye drops 1 drp ophthalmic-Left BEDTIME 11/17/21 09/04/25 04/10/25 History brimonidine 0.2 % eye drops 1 drp ophthalmic-Left Q8-10H PRN 05/18/23 09/04/25 09/21/24 History Eye Pressure albuterol sulfate 90 mcg/actuation 2 puff inhalation Q4H PRN for 06/19/24 09/04/25 06/19/24 08:00 History aerosol inhaler wheezing timolol maleate 0.5 % eye drops 1 drp ophthalmic-Left DAILY 06/24/24 09/04/25 04/10/25 History magnesium oxide 400 mg PO DAILY 04/11/25 09/04/25 04/10/25 History oxycodone 15 mg tablet 15 mg PO Q6H PRN Pain 09/02/25 09/04/25 09/04/25 11:00 History zolpidem 5 mg tablet 5 mg PO BEDTIME PRN Insomnia 09/02/25 09/04/25 Unknown History Exam Height,Weight and Vital Signs: Height 5 ft 7.5 in Weight 94.347 kg Pertinent Lab Results Pertinent Lab Results: Laboratory Tests 04/12/25 05:48 WBC 7.3 Hgb 14.7 Hct 43.0 Plt Count 267 Sodium 142 Potassium 3.6 Chloride 106 Carbon Dioxide 26 BUN 13 Creatinine 0.69 Assessment and Plan Assessment Anesthesia Assessment: Chart Reviewed Documented by User: Nuzhat Stein MD 09/04/25 12:57 PMFSH Past Medical History Medical History Gastritis DJD (degenerative joint disease) GERD (gastroesophageal reflux disease) Post herpetic neuralgia Left against medical advice SIMON (dyspnea on exertion) Shortness of breath Pedal edema Chest pain in adult Class 2 severe obesity with body mass index (BMI) of 35 to 39.9 with serious comorbidity Bilateral primary osteoarthritis of knee Osteoarthritis of right knee Diabetes mellitus type 2, uncontrolled Arthritis of both knees Chronic pain syndrome Allergic rhinitis VIDA on CPAP COPD (chronic obstructive pulmonary disease) Lumbar radiculopathy Asthma Benign prostatic hyperplasia Back pain HTN (hypertension) Lumbar spondylosis Tendon tear Depression Crohn disease Family History Family History Father No problems noted. Mother No problems noted. Surgical History Surgical History H/O colonoscopy History of Problems with Anesthesia: No Social History Social History Household Members: Family Housing: House Do you presently have visiting nurse or other home services: No Alcohol intake: never Comment: pain 3-4 left knee and buttock Patient Tobacco Use Status: Former Tobacco user e-Cigarette/Vaping Use: Never Used Second Hand Smoke Exposure: Yes Use of substances other than those prescribed or required for medical reasons: No Are you DNR?: No Advance Directives: No Advance Directives Information Provided: Yes Advance Directives Date on File: 07/07/24 service: No Current occupational status: retired Cognitive needs: Yes (cane) Hearing needs: No Vision needs: Yes (Glasses) Meds Allergies Allergy/AdvReac Type Severity Reaction Status Date / Time hydrocortisone Allergy Severe SWELLING Verified 09/04/25 12:03 (HYDROCORTISONE) NSAIDS (Non-Steroidal Allergy Severe BLEEDING Verified 09/04/25 12:03 Anti-Inflamma (NSAIDS (NON-STEROIDAL ANTI-INFLAMMA) aspirin Allergy Unknown bleeding Verified 09/04/25 12:03 doxycycline AdvReac Severe in-effectiv Verified 09/04/25 12:03 e Home Medications ?Medication ?Instructions ?Recorded ?Confirmed ?Last Taken ?Type latanoprost 0.005 % eye drops 1 drp ophthalmic-Left BEDTIME 11/17/21 09/04/25 04/10/25 History brimonidine 0.2 % eye drops 1 drp ophthalmic-Left Q8-10H PRN 05/18/23 09/04/25 09/21/24 History Eye Pressure albuterol sulfate 90 mcg/actuation 2 puff inhalation Q4H PRN for 06/19/24 09/04/25 06/19/24 08:00 History aerosol inhaler wheezing timolol maleate 0.5 % eye drops 1 drp ophthalmic-Left DAILY 06/24/24 09/04/25 04/10/25 History magnesium oxide 400 mg PO DAILY 04/11/25 09/04/25 04/10/25 History oxycodone 15 mg tablet 15 mg PO Q6H PRN Pain 09/02/25 09/04/25 09/04/25 11:00 History zolpidem 5 mg tablet 5 mg PO BEDTIME PRN Insomnia 09/02/25 09/04/25 Unknown History Exam Airway Mallampati Class: III TM Dist: >3cm Neck ROM: Full Loose/Missing/Broken Teeth: No Heart: RRR Lungs: CTA Assessment and Plan Assessment Anesthesia Assessment: Anesthesia Plan Discussed Final Anesthetic Review History of Problems with Anesthesia: No NPO: Yes ASA Class: III Final Preanesthetic Review: Meds/Allgs Chart Reviewed, Consent Obtained/Reviewed and Anes Risks/Benef Reviewed Patient Risk: Intermediate Procedure Risk: Low Anesthetic Plan Anesthetic Plan: MAC: Disposition: Standard PACU
[2025-09-04 12:04] VITALS: BMI 28.6
--- NOTE | 2025-09-04 12:18 | P.HPSUR_ITS ---
Pre-Procedural Eval Section A - 24 Hr Update-Section A only Date of Service: 09/04/25 Section B - Complete if H&P > 30 days Chief Complaint: crohns Details of Present Illness: see H&P no changes Relevant Family History (Specify if Yes): No Relevant Social History: None Present Medications: see Short Stay Collaborative assessment Medical History: No relevant PMH History of Previous Operations: No relevant previous surgery Allergies: Allergies Allergy/AdvReac Type Severity Reaction Status Date / Time hydrocortisone Allergy Severe SWELLING Verified 09/04/25 12:03 (HYDROCORTISONE) NSAIDS (Non-Steroidal Allergy Severe BLEEDING Verified 09/04/25 12:03 Anti-Inflamma (NSAIDS (NON-STEROIDAL ANTI-INFLAMMA) aspirin Allergy Unknown bleeding Verified 09/04/25 12:03 doxycycline AdvReac Severe in-effectiv Verified 09/04/25 12:03 e Review of Systems Sugical H&P ROS: Negative: Constitution, Cardiovascular, Respiratory, Neurological, Psychiatric, Hem-Onc, Allergic/Immunologic, Gastrointestinal, Genitourinary, Musculoskeletal, Integumentary, Endocrine and Eyes/Ears/Nose/Throat Exam Surgical H&P Exam: Normal: HEENT, Normal: Heart, Normal: Lungs, Normal: Extrem ities, Normal: Abdomen, Normal: Skin and Normal: Neurological Plan Diagnosis/Plan: Unchanged I have reviewed the history and physical and performed a pertinent physical examination on my patient. No changes have occurred unless specified. Time Spent With Patient Time: Total time managing care of this patient today ____ minutes.
[2025-09-04 12:19] VITALS: BP 137/71; PULSE 56; RESP 16; TEMP 36.7; O2SAT 94
[2025-09-04] MEDS: Lactated Ringers 1,000 ML 100 ML IVCONT (12:31)
[2025-09-04 12:39] LABS: Glucose, Whole Blood 116 mg/dL (60-115)
[2025-09-04 13:38] VITALS: BP 151/58; PULSE 51; RESP 15; TEMP 36.7; O2SAT 97
[2025-09-04 13:53] VITALS: BP 159/70; PULSE 48; RESP 16; O2SAT 97
[2025-09-04 14:08] VITALS: BP 154/67; PULSE 47; RESP 16; TEMP 36.7; O2SAT 97
--- NOTE | 2025-09-04 22:52 | OP_ITS ---
DATE OF SERVICE: 09/04/2025 SURGEON: Rahat Fuentes MD INDICATIONS: Crohn disease. PREOPERATIVE DIAGNOSIS: POSTOPERATIVE DIAGNOSIS: PROCEDURE PERFORMED: Colonoscopy to the cecum with biopsy. ESTIMATED BLOOD LOSS: COMPLICATIONS: ANESTHESIA: Monitored anesthesia care. ASSISTANTS: SPECIMENS: DESCRIPTION OF PROCEDURE: A history and physical was performed. The risks and benefits of the procedure were explained to the patient, and informed consent was obtained. The patient was placed in the left lateral decubitus position. A digital rectal exam was performed and was found to be normal. The Olympus pediatric video colonoscope was introduced into the rectum and advanced to the cecum. The cecum was identified by transillumination, palpation, and identification of the ileocecal valve. Examination was performed. The scope was removed. He tolerated the procedure well and was returned to the recovery area in stable condition. FINDINGS: The terminal ileum was not entered and could not be examined. The visualized colonic mucosa was normal. There was no active Crohn disease identified. Biopsies were obtained throughout the colon. Retroflexed examination showed small internal hemorrhoids. IMPRESSION: Crohn disease. RECOMMENDATION: Follow up the biopsy results. MD FARHEEN Garcia/PEDRO / [id number]
== END 2025-09-04 15:02 | disposition home or self-care (01) ==
PROVIDERS: PCP Internal Medicine; Visit Provider Internal Medicine Gastroenterology
PROC: 0DJD8ZZ Inspection of Lower Intestinal Tract, Via Natural or Artificial Opening Endoscopic (ICD-10-PCS; CPT 45378; principal; 2025-09-04 13:00)
DX: K50.012 Crohn's disease of small intestine with intestinal obstruction (principal); Z86.0101 Personal history of adenomatous and serrated colon polyps; Z80.0 Family history of malignant neoplasm of digestive organs; K64.8 Other hemorrhoids; Z80.42 Family history of malignant neoplasm of prostate; K21.9 Gastro-esophageal reflux disease without esophagitis; I10 Essential (primary) hypertension; E11.9 Type 2 diabetes mellitus without complications; M17.0 Bilateral primary osteoarthritis of knee; J44.9 Chronic obstructive pulmonary disease, unspecified; G47.33 Obstructive sleep apnea (adult) (pediatric); Z99.89 Dependence on other enabling machines and devices; Z79.4 Long term (current) use of insulin; Z79.899 Other long term (current) drug therapy; Z88.1 Allergy status to other antibiotic agents; Z88.6 Allergy status to analgesic agent; Z88.8 Allergy status to other drugs, medicaments and biological substances
CPT/HCPCS: 45380; 82947; 88305; J2704

== ENCOUNTER 2025-09-13 14:28 | Emergency (ER) | payer MEDICARE, SELFPAY ==
[2025-09-13 17:16] VITALS: BP 192/86; PULSE 80; RESP 18; TEMP 36.6; O2SAT 96; BMI 25.8
--- NOTE | 2025-09-13 17:49 | ED_ITS ---
HPI - General Adult General Chief complaint: General Medical Stated complaint: shingles Time Seen by Provider: 09/13/25 17:49 Source: patient Mode of arrival: ambulatory Limitations: no limitations History of Present Illness ED Provider: HPI narrative: 75-year-old male with post herpetic neuralgia left chest wall, left time he was here about a month ago he was discharged with morphine sulfate pills, I see and [employer] that his PCP prescribed gabapentin for him that patient did not take because he does not like how it makes him feel, patient has dry lesions over the right chest wall. was at [facility] ER today as well Related Data Home Medications ?Medication ?Instructions ?Recorded ?Confirmed latanoprost 0.005 % eye drops 1 drp ophthalmic-Left BE DTIME 11/17/21 09/04/25 brimonidine 0.2 % eye drops 1 drp ophthalmic-Left Q8-1 0H PRN 05/18/23 09/04/25 Eye Pressure albuterol sulfate 90 mcg/actuation 2 puff inhalation Q 4H PRN for 06/19/24 09/04/25 aerosol inhaler wheezing timolol maleate 0.5 % eye drops 1 drp ophthalmic-Left DAILY 06/24/24 09/04/25 magnesium oxide 400 mg PO DAILY 04/11/2503/24 oxycodone 15 mg tablet 15 mg PO Q6H PRN Pain 09/04/25 zolpidem 5 mg tablet 5 mg PO BEDTIME PRN Insomnia 09/02/25 09/04/25 Previous Rx's ?Medication ?Instructions ?Recorded insulin syringe,safety needle 0.3 #100 ea 09/28/21 mL 29 gauge x 1/2 pen needle, diabetic 32 gauge x #100 ea 04/09/22 5/16 (Comfort EZ Pen [place]) budesonide 0.5 mg/2 mL suspension 0.5 mg (2 mL) inhala tion DAILY 12/13/24 for nebulization ASTHMA/COPD #120 mL insulin lispro 100 unit/mL 15 unit (0.15 mL) subcut TI DAC 04/24/25 subcutaneous pen (Humalog KwikPen Blood Sugar Levels 9 0 days #40.5 mL (U-100) Insulin) venlafaxine 75 mg capsule,extended 75 mg PO DAILY #90 caps 06/19/25 release 24 hr (Effexor XR) clonazepam 0.5 mg tablet (Klonopin) 0.5 mg PO BEDTIME #45 tabs 09/03/25 metoprolol succinate 50 mg 50 mg PO DAILY #90 tabs 04/24 tablet,extended release 24 hr pantoprazole 20 mg tablet,delayed 20 mg PO DAILY@0630 #90 tabs 09/05/25 release methylprednisolone 4 mg tablets in 4 mg PO DAILY #21 e a 09/13/25 a dose pack (Medrol (Silvestre)) Allergies Allergy/AdvReac Type Severity Reaction Status Date / Time hydrocortisone Allergy Severe SWELLING Verified 09/13/25 17:17 (HYDROCORTISONE) NSAIDS (Non-Steroidal Allergy Severe BLEEDING Verified 09/13/25 17:17 Anti-Inflamma (NSAIDS (NON-STEROIDAL ANTI-INFLAMMA) aspirin Allergy Unknown bleeding Verified 09/13/25 17:17 doxycycline AdvReac Severe in-effectiv Verified 09/13/25 17:17 e [facility] Past Medical History Medical History (Updated 09/13/25 @ 18:54 by Anderson Roy DO) Gastritis DJD (degenerative joint disease) GERD (gastroesophageal reflux disease) Post herpetic neuralgia Left against medical advice SIMON (dyspnea on exertion) Shortness of breath Pedal edema Chest pain in adult Class 2 severe obesity with body mass index (BMI) of 35 to 39.9 with serious comorbidity Bilateral primary osteoarthritis of knee Osteoarthritis of right knee Diabetes mellitus type 2, uncontrolled Arthritis of both knees Chronic pain syndrome Allergic rhinitis VIDA on CPAP COPD (chronic obstructive pulmonary disease) Lumbar radiculopathy Asthma Benign prostatic hyperplasia Back pain HTN (hypertension) Lumbar spondylosis Tendon tear Depression Crohn disease Surgical History (Updated 09/09/25 @ 15:10 by Hector Cherry MD) H/O colonoscopy (09/05/25) Family History Family History Father No problems noted. Mother No problems noted. Social History Social History Household Members: Family Housing: House Do you presently have visiting nurse or other home services: No Alcohol intake: never Comment: pain 3-4 left knee and buttock Patient Tobacco Use Status: Former Tobacco user Smoked in Last 30 Days: No e-Cigarette/Vaping Use: Never Used Second Hand Smoke Exposure: Yes Use of substances other than those prescribed or required for medical reasons: No Advance Directives: Yes Advance Directives on File: Yes Advance Directives Date on File: 07/07/24 Do you have a plan to hurt others: No Plan service: No Current occupational status: retired Cognitive needs: Yes (cane) Hearing needs: No Vision needs: Yes (Glasses) Physical Exam ED Vital Signs: Vital Signs - 24 hr 09/13/25 17:16 09/13/25 18:43 09/13/25 19:22 Temperature 97.8 F 98.2 F 98.2 F Pulse Rate 80 82 82 Respiratory Rate 18 18 18 Blood Pressure 192/86 H 188/84 H 188/84 H Pulse Oximetry 96 97 97 Oxygen Delivery Method Room Air Room Air Room Air BMI result Body Mass Index 25.8 Medications Administered Discontinued Medications Generic Name Dose Route Start Last Admin Trade Name Freq PRN Reason Stop Dose Admin Prednisone 40 mg 09/13/25 18:46 09/13/25 19:15 Prednisone 20 Mg Tablet PO 09/13/25 18:47 40 mg ONCE ONE Administration Discharge Plan Discharge Clinical Impression: Post herpetic neuralgia Patient Disposition: Home, Self-Care Instructions: [facility] (ED) Additional Instructions: your primary care provider prescribed Gabapentin for you this type of pain which is the best treatment for the pain that you are experiencing, you have to take it on daily basis, it takes a few days for gabapentin to actually start working and they nerve pain will improve. you have taken oxycodone and morphine sulfate pills in the past but this is something that can be used with the initial discomfort but at this point as you have neuritis pain you need to be on gabapentin and I am hoping that steroids will help as well, 1st dose in the emergency department and continue starting tomorrow if the area is itching you can use Benadryl ointment, and you are already using calamine lotion As far as dementia evaluation in the emegency department ( I understand your noted this in triage ), this is not something that we do in the ED, this is something that can be discussed with the primary care provider and either they can assess you with specific questions designed for that or refer you to a neurology specialist. any other issues concerns come back to the ER Prescriptions: New methylprednisolone [Medrol (Silvestre)] 4 mg tablets,dose pack 4 mg PO DAILY Qty: 21 0RF Rx Instructions: Day 1: 24 mg on day 1 administered as 8 mg before breakfast, 4 mg after lunch, 4 mg after supper, and 8 mg at bedtime or 24 mg as a single dose or divided into 2 or 3 doses upon initiation. Day 2: 20 mg on day 2 administered as 4 mg before breakfast, 4 mg after lunch, 4 mg after supper, and 8 mg at bedtime. Day 3: 16 mg on day 3 administered as 4 mg before breakfast, 4 mg after lunch, 4 mg after supper, and 4 mg at bedtime. Day 4: 12 mg on day 4 administered as 4 mg before breakfast, 4 mg after lunch, and 4 mg at bedtime. Day 5: 8 mg on day 5 administered as 4 mg before breakfast and 4 mg at bedtime. Day 6: 4 mg on day 6 administered as 4 mg before breakfast. No Action (DME) insulin syringe,safety needle 0.3 mL 29 x 1/2 syringe See Rx Instructions .Route Qty: 100 0RF Rx Instructions: As directed (DME) Comfort EZ Pen [place] 32 gauge x 5/16 needle See Rx Instructions .Route Qty: 100 0RF Rx Instructions: Use 3 times daily with insulin insulin lispro [Humalog KwikPen Insulin] 100 unit/mL insulin pen 15 unit subcut TIDAC 90 Days Qty: 40.5 1RF venlafaxine [Effexor XR] 75 mg capsule,extended release 24hr 75 mg PO DAILY Qty: 90 1RF clonazepam [Klonopin] 0.5 mg tablet 0.5 mg PO BEDTIME Qty: 45 0RF Rx Instructions: take 1/2 tab every am and 1 tab daily at bedtime orally; pantoprazole 20 mg tablet,delayed release (DR/EC) 20 mg PO DAILY@0630 Qty: 90 1RF metoprolol succinate 50 mg tablet extended release 24 hr 50 mg PO DAILY Qty: 90 1RF oxycodone 15 mg Tablet 15 mg PO Q6H PRN (Reason: Pain) zolpidem 5 mg tablet 5 mg PO BEDTIME PRN (Reason: Insomnia) albuterol sulfate 90 mcg/actuation HFA aerosol inhaler 2 puff inhalation Q4H PRN (Reason: for wheezing) timolol maleate 0.5 % drops 1 drp ophthalmic-Left DAILY magnesium oxide 400 mg magnesium Tablet 400 mg PO DAILY latanoprost 0.005 % drops 1 drp ophthalmic-Left BEDTIME brimonidine 0.2 % drops 1 drp ophthalmic-Left Q8-10H PRN (Reason: Eye Pressure) budesonide 0.5 mg/2 mL suspension for nebulization 0.5 mg inhalation DAILY Qty: 120 4RF Referrals: Hector Cherry MD [Primary Care Provider, Internal Medicine] - 1 week Clinical Impression: Post herpetic neuralgia Interventions: ED Discharge Assessment Last Done: 09/13/25 19:22 Discharge Date/Time: 09/13/25 19:23 Print Language: [place]
[2025-09-13 18:43] VITALS: BP 188/84; PULSE 82; RESP 18; TEMP 36.8; O2SAT 97
[2025-09-13 19:22] VITALS: BP 188/84; PULSE 82; RESP 18; TEMP 36.8; O2SAT 97
== END 2025-09-13 19:23 | disposition home or self-care (01) ==
PROVIDERS: Emergency Provider Emergency Medicine; PCP Internal Medicine
DX: B02.29 Other postherpetic nervous system involvement (principal)
CPT/HCPCS: 99283; 99284